=== PATIENT | female | born 1970 | race African-American/Black ===

== ENCOUNTER → 2017-08-10 12:55 | Outpatient (CLI) | payer MEDICAID, SELFPAY ==
--- NOTE | 2017-08-10 13:01 | EKG12_ITS ---
Test Reason : CHEST DISCOMFORT Blood Pressure : / mmHG Vent. Rate : 051 BPM Atrial Rate : 051 BPM P-R Int : 188 ms QRS Dur : 072 ms QT Int : 448 ms P-R-T Axes : 048 002 018 degrees QTc Int : 412 ms Sinus bradycardia Minimal voltage criteria for LVH, may be normal variant Possible Inferior infarct , age undetermined Abnormal ECG Confirmed by OLIVERIO CHAVEZ, ROSSY ([id number]), make up editor LUCI COLÓN ([id number]) on 08/11/2017 12:54:18 PM Referred By: Noemy Brooks Confirmed By:ROSSY DURON MD
--- NOTE | 2017-08-10 13:04 | RAD_ITS ---
STUDY: X-RAY CHEST REASON FOR EXAM: Female, 47 years old. Wheezing, chest discomfort TECHNIQUE: PA and lateral views of the chest. COMPARISON: 03/26/2015 FINDINGS: The lungs are clear and expanded. There is no demonstrated pleural abnormality. Normal size heart. Normal mediastinum and grey. Normal visualized pulmonary arteries. Normal visualized aortic arch and descending thoracic aorta. Normal visualized thoracic spine. Normal visualized ribs, clavicles, and shoulders. There is no demonstrated abnormality of the visualized soft tissue structures of the upper abdomen. RAD/Chest PA and Lateral IMPRESSION: Normal x-ray examination of the chest. Electronically Signed: Romeo Munoz MD at 13:26 EDT , Service support ,
== END ==
DX: R07.89 Other chest pain (principal); I10 Essential (primary) hypertension; F17.200 Nicotine dependence, unspecified, uncomplicated
CPT/HCPCS: 71046; 93005

== ENCOUNTER → 2017-08-12 10:46 | Outpatient (CLI) | payer MEDICAID, SELFPAY ==
--- NOTE | 2017-08-12 10:53 | US_ITS ---
STUDY: THYROID ULTRASOUND REASON FOR EXAM: Female, 47 years old. Thyroid enlargement TECHNIQUE: Ultrasound evaluation of the thyroid was performed with real-time and static crespo-scale imaging. COMPARISON: None. FINDINGS: RIGHT LOBE: The right lobe of the thyroid gland measures 4.7 x 2 x 1.9 cm. There is a homogeneous echotexture. There are no demonstrated solid, cystic or complex lesions. LEFT LOBE: The left lobe of the thyroid gland measures 4.6 x 3.3 x 1.6 cm. There is a homogeneous echotexture. There are no demonstrated solid, cystic or complex lesions. ISTHMUS: The isthmus measures 5 mm. . The regional lymph nodes are normal. US/Thyroid IMPRESSION: Normal ultrasound examination of the thyroid. Electronically Signed: Pardeep Dickens MD at 5:45 EDT , Service support ,
== END ==
DX: E04.9 Nontoxic goiter, unspecified (principal)
CPT/HCPCS: 76536

== ENCOUNTER 2017-09-23 18:05 | Emergency (ER) | payer MEDICAID, SELFPAY ==
[2017-09-23 18:06] VITALS: BP 139/95; PULSE 69; RESP 16; TEMP 37.2; O2SAT 98; BMI 39.6
--- NOTE | 2017-09-23 18:12 | EKG12_ITS ---
Test Reason : CHEST PAIN Blood Pressure : / mmHG Vent. Rate : 075 BPM Atrial Rate : 075 BPM P-R Int : 182 ms QRS Dur : 078 ms QT Int : 406 ms P-R-T Axes : 046 -01 057 degrees QTc Int : 453 ms Normal sinus rhythm Normal ECG Confirmed by ROSSY DURON MD ([id number]), assignment desk editor LUCI COLÓN ([id number]) on 09/25/2017 2:12:40 PM Referred By: ANGELIA Confirmed By:ROSSY DURON MD
--- NOTE | 2017-09-23 18:12 | RAD_ITS ---
STUDY: X-RAY CHEST REASON FOR EXAM: Female, 47 years old. Chest pain TECHNIQUE: Frontal view of the chest COMPARISON: 08/10/2017 FINDINGS: The lungs are clear. There are no pleural effusions. There is no pneumothorax. The heart is normal in size. The visualized osseous structures are within normal limits. RAD/Chest 1 View (Portable) IMPRESSION: No acute thoracic pathology. Electronically Signed: Minesh Bryant, at 18:39 EDT Tel , Service support ,
[2017-09-23 18:19] VITALS: O2SAT 96
[2017-09-23] MEDS: Aspirin 81 MG TAB.CHEW 324 MG PO (18:26)
[2017-09-23 18:54] LABS: Absolute Lymphocyte Count 5.11 X10^3/ul (0.83-4.51); Absolute Neutrophil Count 3.7 X10^3/uL (2.0-7.7); Basophil# 0.06 X10^3/uL; Basophil% 0.6 % (0-1); Eosinophil# 0.27 X10^3/uL; Eosinophils% 2.7 % (0-5); Hematocrit 40.6 % (37-47); Hemoglobin 13.4 g/dl (12.0-15.0); Lymphocyte # 5.11 X10^3/ul (4.0); Mean Corpuscular Hgb 28.1 pg (27.0-32.0); Mean Corpuscular Volume 85.1 fL (81-99); Mean Platelet Vol. 10.9 fl (6.2-12.0); Monocyte% 7.1 % (0-10); Neutrophil # 3.68 X10^3/uL (2.7-7.7); Neutrophil % 37.5 % (47-70); Platelet Count 289 K/mm3 (150-450); RBC Distribution Width CV 12.5 % (11.6-14.6); RBC Distribution Width SD 38.3 fl (35.1-43.9); Red Blood Count 4.77 M/mm3 (4.2-5.4); White Blood Count 9.8 K/mm3 (4.4-11.0)
[2017-09-23 18:55] LABS: Differential Indicated SCAN CRITERIA MET; POSITIVE COUNT NO; POSITIVE DIFFERENTIAL YES; POSITIVE MORPHOLOGY NO
[2017-09-23 18:57] LABS: Anion Gap 8 (5-15); BUN 14 mg/dL (7-18); BUN/Creat Ratio 9.2 RATIO (10-20); Calcium,Total 9.3 mg/dL (8.5-10.1); Chloride 104 mmol/L (98-107); Creatinine, Serum 1.52 mg/dL (0.55-1.02); EST Glomerular Filtration Rate 39 mL/min (>60); Est Glom Filt Rate - Afr Amer 47 mL/min (>60); Estimated Creatinine Clearance 40.36 ml/min; Glucose 108 mg/dL (74-106); Potassium 3.8 mmol/L (3.5-5.1); Sodium Level 139 mmol/L (136-145)
[2017-09-23 19:06] LABS: Differential Comment SCANNED
--- NOTE | 2017-09-23 19:31 | ED.VISSUMM ---
- ER Visit Summary Date of Service: 09/23/17 Chief Complaint: Chest pain History of Present Illness: The patient is a 47 F past medical history of hypertension and hypothyroidism. Patient's had no cardiac history and denies any family history of cardiac disease. 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 Has not upcoming echocardiogram. She has been having intermittent nonexertional chest pain for weeks. Denies any history of DVT or PE. She has never had a cardiac catheterization had a negative stress test she believes around 10 years ago. He does smoke tobacco about half a pack a day. Denies any family history of cardiac disease. No recent travel, surgery or mobilization. No calf pain or swelling. No hemoptysis. She states she walks without any difficulty. Physical Examination: Appearing middle-aged female. Vital signs are stable afebrile. Pulse ox 90% room air no signs of hypoxia. HEENT exam unremarkable. Neck nontender no JVD. No lymphadenopathy. Lungs clear to auscultation bilaterally. Chest wall no reproducible chest wall pain. Heart regular rate and rhythm no murmur rate about 70. Abdomen soft nontender. Normal bowel sounds no peritoneal signs. She is moving all 4 extremities. Calves are nontender without edema or cords. She has equal symmetrical radial pulses. Neurologically she is awake alert with no focal deficits. Back exam nontender. Test Results: CBC normal. BMP normal. Troponin normal. EKG sinus rhythm rate is 75 with no acute abnormalities. Chest x-ray no acute abnormalities. Normal cardiac silhouette read both by myself the radiologist. Emergency Department Course and Treatment: She is doing well on repeat exam. Given she has no family history and clinically and historically this really does not sound like cardiac chest pain and cover with her being discharged home and follow-up with Dr. Dickerson for her outpatient workup. Treatment Plan: Discharge follow-up with Dr. Dickerson. Disposition: discharge Impression: Acute atypical chest pain of uncertain etiology This note was generated with [employer] dictation software. It may contain incorrect words, spelling, and punctuation that were not noted in review of the chart prior to signing ED Disposition - Plan for ED Patient: Chief Complaint: Chest Pain Referrals: [facility],Bette Rincon [Primary Care Provider] -
--- NOTE | 2017-09-23 19:35 | ED.DCSUM_ITS ---
- ER Visit Summary Date of Service: 09/23/17 Chief Complaint: Chest pain History of Present Illness: The patient is a 47 F past medical history of hypertension and hypothyroidism. Patient's had no cardiac history and denies any family history of cardiac disease. 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 Has not upcoming echocardiogram. She has been having intermittent nonexertional chest pain for weeks. Denies any history of DVT or PE. She has never had a cardiac catheterization had a negative stress test she believes around 10 years ago. He does smoke tobacco about half a pack a day. Denies any family history of cardiac disease. No recent travel, surgery or mobilization. No calf pain or swelling. No hemoptysis. She states she walks without any difficulty. Physical Examination: Appearing middle-aged female. Vital signs are stable afebrile. Pulse ox 90% room air no signs of hypoxia. HEENT exam unremarkable. Neck nontender no JVD. No lymphadenopathy. Lungs clear to auscultation bilaterally. Chest wall no reproducible chest wall pain. Heart regular rate and rhythm no murmur rate about 70. Abdomen soft nontender. Normal bowel sounds no peritoneal signs. She is moving all 4 extremities. Calves are nontender without edema or cords. She has equal symmetrical radial pulses. Neurologically she is awake alert with no focal deficits. Back exam nontender. Test Results: CBC normal. BMP normal. Troponin normal. EKG sinus rhythm rate is 75 with no acute abnormalities. Chest x-ray no acute abnormalities. Normal cardiac silhouette read both by myself the radiologist. Emergency Department Course and Treatment: She is doing well on repeat exam. Given she has no family history and clinically and historically this really does not sound like cardiac chest pain and cover with her being discharged home and follow-up with Dr. Dickerson for her outpatient workup. Treatment Plan: Discharge follow-up with Dr. Dickerson. Disposition: discharge Impression: Acute atypical chest pain of uncertain etiology This note was generated with [employer] dictation software. It may contain incorrect words, spelling, and punctuation that were not noted in review of the chart prior to signing ED Disposition - Plan for ED Patient: Chief Complaint: Chest Pain Referrals: [facility],Bette Rincon [Primary Care Provider] -
--- NOTE | 2017-09-23 19:35 | ED.DEP ---
ED Disposition - Plan for ED Patient: Disposition: Home or Assisted Living Chief Complaint: Chest Pain Instructions: ED Chest Pain Atypical Unkn Cause Referrals: Fransisco Dickerson MD [STAFF PHYSICIAN] - As soon as possible Additional Instructions: On follow-up with Dr. Dickerson and he may want to get outpatient stress testing for your chest pain. All your tests were negative today. Return to the ER if you are feeling worse.
[2017-09-23 19:42] VITALS: BP 111/76; PULSE 66; RESP 30; O2SAT 98
== END 2017-09-23 19:44 | disposition home or self-care (01) ==
PROVIDERS: Emergency Provider Emergency Medicine
DX: R07.89 Other chest pain (principal); I10 Essential (primary) hypertension; Z72.0 Tobacco use; E03.9 Hypothyroidism, unspecified
CPT/HCPCS: 71045; 80048; 84484; 85025; 93005; 99285

== ENCOUNTER → 2017-09-30 20:11 | Outpatient (CLI) | payer MEDICAID, SELFPAY ==
[2017-09-30] MEDS: Zolpidem Tartrate 5 MG Tablet PO (22:00)
== END ==
PROVIDERS: Visit Provider Internal Medicine Cardiovascular Disease
DX: G47.10 Hypersomnia, unspecified (principal); R53.83 Other fatigue; G47.9 Sleep disorder, unspecified
CPT/HCPCS: 95810

== ENCOUNTER → 2017-10-02 14:03 | Outpatient (CLI) | payer MEDICAID, SELFPAY ==
--- NOTE | 2017-10-02 14:05 | ECHOD_ITS ---
Reason For Study: Chest Pain Procedure This was a 2D Doppler, Color Flow transthoracic echocardiogram. Exam performed in department. Left Ventricle Normal size and thickness. The estimated ejection fraction is 65 %. Normal diastology for age. No regional wall motion abnormalities noted. Right Ventricle Normal size and thickness. Normal systolic function. Atria Normal left atrium. Normal right atrium. Normal atrial septum. Mitral Valve The mitral valve is structurally normal. No prolapse or stenosis seen. Trivial mitral valve insufficiency. Tricuspid Valve Normal tricuspid valve. Trivial tricuspid valve insufficiency. Unable to estimate RV systolic pressure/pulmonary artery pressure due to technically difficult study. Aortic Valve Normal aortic valve. Trisinus/trileaflet aortic valve. Pulmonic Valve Normal pulmonic valve. Great Vessels Normal aortic root. Normal arch. Normal inferior vena cava. Inferior vena cava collapse with sniff. Pericardium/Pleural No pericardial effusion. Medication 22 gauge I.V. with prn adaptor inserted into right arm. Diluted definity 2ml given slow IV push to enhance endocardial definition. MMode/2D Measurements & Calculations LVIDd: 4.5 cm IVSd: 1.0 cm LA dimension: 3.9 cm LVIDs: 2.7 cm LVPWd: 0.94 cm RVDd: 3.5 cm FS: 39.5 % LAV(MOD-bp): 47.2 ml LA A4 area: 18.0 cm2 RA A4 area: 14.5 cm2 LAV(MOD-bp) Indexed: 22.4 ml/m2 LAV(MOD-sp2): 44.5 ml LAV(MOD-sp4): 47.6 ml Time Measurements MV dec time: 0.28 sec Doppler Measurements & Calculations MV E max gonzalo: 81.8 cm/sec Lat Peak E' Gonzalo: 10.5 cm/sec Med Peak E' Gonzalo: 8.7 cm/sec MV A max gonzalo: 97.0 cm/sec E/E' lat: 7.8 E/E' med: 9.4 MV E/A: 0.84 MV V2 max: 109.8 cm/sec MV P1/2t max gonzalo: 96.3 cm/sec Ao V2 max: 177.6 cm/sec MV max P.8 mmHg MV P1/2t: 109.9 msec Ao max P.6 mmHg MV V2 mean: 62.9 cm/sec MV dec slope: 256.6 cm/sec2 Ao V2 mean: 114.9 cm/sec MV mean P.8 mmHg MVA(P1/2t): 2.0 cm2 Ao mean P.0 mmHg MV V2 VTI: 32.3 cm Ao V2 VTI: 35.1 cm LV V1 max: 129.6 cm/sec LV V1 max P.7 mmHg LV V1 mean P.8 mmHg LV V1 mean: 75.4 cm/sec LV V1 VTI: 26.2 cm Interpretation Summary The estimated ejection fraction is 65 %. Normal diastology for age. Trivial mitral valve insufficiency. Trivial tricuspid valve insufficiency. Unable to estimate RV systolic pressure/pulmonary artery pressure due to technically difficult study. The study was technically difficult. There is no comparison study available. Contrast injection was performed. Ordering Physician: Fransisco Dickerson Referring Physician: Fransisco Dickerson Performed By: Gabriel Rios RCS
== END ==
PROVIDERS: Visit Provider Internal Medicine Cardiovascular Disease
DX: I10 Essential (primary) hypertension (principal); R94.31 Abnormal electrocardiogram [ECG] [EKG]; R07.9 Chest pain, unspecified
CPT/HCPCS: 93306; Q9957; A4216; C8929

== ENCOUNTER 2017-10-14 07:39 | Emergency (ER) | payer MEDICAID, SELFPAY ==
[2017-10-14 07:40] VITALS: BP 126/80; PULSE 62; RESP 14; TEMP 36.8; O2SAT 98; BMI 42.7
--- NOTE | 2017-10-14 07:50 | ED.VISSUMM ---
- ER Visit Summary Date of Service: 10/14/17 Chief Complaint: Sore throat History of Present Illness: The patient is a 47 F presenting with sore throat since yesterday. Patient states she has a history of tonsillitis 1-2 times per year and this feels similar. She has painful swallowing but no difficulty swallowing. She tried ibuprofen at home. She has no sick contacts. She denies fever. She also complains of nasal congestion. Denies other complaints. Physical Examination: Vitals are stable. Patient is afebrile. Alert no acute distress. HEENT exam pharyngeal erythema with no exudate. Uvula is midline Neck is supple. Lungs are clear and equal bilaterally. Heart is regular rate and rhythm. Abdomen is soft nontender nondistended. Extremities are unremarkable. Skin is warm and dry. No focal neurologic deficit. Remainder of exam is unremarkable. Emergency Department Course and Treatment: She was given Decadron p.o. Rapid strep is negative. She is able to tolerate p.o. She is advised to follow-up with her primary care physician. Advised return to ED for worsening complaints. Disposition: Discharge home Impression: Pharyngitis This note was generated with [employer] dictation software. It may contain incorrect words, spelling, and punctuation that were not noted in review of the chart prior to signing ED Disposition - Plan for ED Patient: Disposition: Home or Assisted Living Chief Complaint: Sore Throat Instructions: ED Pharyngitis Viral Prescriptions: Guaifenesin/Pseudoephedrne HCl [Mucinex D ER 1,200-120 mg Tab] 1 ea PO BID #14 [email or web address] Referrals: Bette Duncan [Primary Care Provider] -
--- NOTE | 2017-10-14 08:52 | DCINST.ED_ITS ---
ED Disposition - Plan for ED Patient: Chief Complaint: Sore Throat Instructions: ED Pharyngitis Viral Prescriptions: Guaifenesin/Pseudoephedrne HCl [Mucinex D ER 1,200-120 mg Tab] 1 each PO BID # 14 [email or web address] Referrals: [facility],Bette Rincon [Primary Care Provider] -
[2017-10-14 09:00] VITALS: RESP 18
== END 2017-10-14 09:03 | disposition home or self-care (01) ==
PROVIDERS: Emergency Provider Emergency Medicine
DX: J02.9 Acute pharyngitis, unspecified (principal); I41 Myocarditis in diseases classified elsewhere; I10 Essential (primary) hypertension; Z72.0 Tobacco use
CPT/HCPCS: 87880

== ENCOUNTER → 2017-10-14 09:51 | Outpatient (CLI) | payer MEDICAID, SELFPAY | PROVIDERS: Visit Provider Internal Medicine Cardiovascular Disease | DX: R07.9 Chest pain, unspecified (principal); I10 Essential (primary) hypertension; R94.31 Abnormal electrocardiogram [ECG] [EKG] | CPT/HCPCS: 87880; 93017; 93350; 99283; Q9957; A4216; C8928 ==

== ENCOUNTER 2017-10-16 15:39 | Emergency (ER) | payer MEDICAID, SELFPAY ==
[2017-10-16 15:40] VITALS: BP 145/91; PULSE 55; RESP 15; TEMP 37; O2SAT 97; BMI 41.1
[2017-10-16] MEDS: LORazepam 2 MG/ML Syringe 1 MG IV (16:02)
--- NOTE | 2017-10-16 16:07 | ED.VISSUMM ---
- ER Visit Summary Date of Service: 10/16/17 Chief Complaint: Acute right ear pain with muffled hearing and vertigo after blowing her nose 1 hour ago History of Present Illness: The patient is a 47 F who presents because of acute vertigo after blowing her nose. She states she experienced crackle pop and pain in the right ear followed by spinning sensation with nausea. She states she cannot walk straight. She denies headache. She denies double vision, blurred vision loss of vision. She has trouble with speech or swallowing. Movement of her head does exacerbate her symptoms and is specifically to the left. She denies any chest pain palpitations, orthopnea or PND. She denies shortness of breath, cough or dyspnea on exertion. She is a smoker. She does have history of labyrinthitis and vertigo. She does report URI symptoms started several days ago. She has had no documented fever. She denies chills or night sweats. She denies sore throat or, neck pain, photophobia or stiff sore neck. She denies any skin lesions. She denies history of trauma. Past medical history hypertension, labyrinthitis, vertigo, hypothyroidism, obstructive sleep apnea and BMI greater than 40. She is status post hysterectomy. Physical Examination: Blood pressure is elevated 145/91. Head is atraumatic normocephalic. Pupils are equal round reactive. Extraocular muscles are intact. TMs are pearly white with landmarks noted. There is dullness with fluid noted behind the right TM. Nares patent with no drainage. Posterior pharynx without erythema or exudate. Uvula is midline. There is no dysphonia or dysphasia. Trachea is midline. There is no stridor with auscultation of the neck. Heart is regular without murmur, gallop or rub. S1 and S2 are normal. Lungs are clear to auscultation with good movement of air bilaterally. Abdomen is soft nontender. Patient is alert and oriented ?3. Motor is 5 over 5. Sensory is intact. DTRs are symmetric with no clonus or Babinski sign. Cranial 2 through 12 are intact. Cerebellar testing is normal. Gait was observed and she shuffles her feet. Romberg test with eyes open and closed is negative. She is able to walk on her heels and toes without staggering. Bath-Hallpike maneuver was performed and she complained of mild nausea no other symptoms. There was no nystagmus. Eye askew test was negative. Hint test was negative. Test Results: Patient reports slight improvement after treatment. No lab tests were obtained. Emergency Department Course and Treatment: Since there is a national shortage of IV Valium she was treated with IV Ativan and will be reassessed. Treatment Plan: Discharged home with prescription for 2 mg Valium tablets to be taken 3 times a day and Flonase spray Disposition: Discharged to home Impression: 1. Serous otitis right ear 2. Positional vertigo This note was generated with [employer] dictation software. It may contain incorrect words, spelling, and punctuation that were not noted in review of the chart prior to signing ED Disposition - Plan for ED Patient: Disposition: Home or Assisted Living Chief Complaint: Ear Problem Instructions: ED Otitis Media Serous Adult, ED Vertigo Unspecified Prescriptions: Fluticasone 0.05% [Flonase Nasal [place]] 1 spray NASAL BID #1 bottle Diazepam [Valium] 4 mg PO TID #10 tablet Referrals: [facility],Bette Rincon [Primary Care Provider] - 1 Week if not improving
--- NOTE | 2017-10-16 16:10 | ED.DCSUM_ITS ---
- ER Visit Summary Date of Service: 10/16/17 Chief Complaint: Acute right ear pain with muffled hearing and vertigo after blowing her nose 1 hour ago History of Present Illness: The patient is a 47 F who presents because of acute vertigo after blowing her nose. She states she experienced crackle pop and pain in the right ear followed by spinning sensation with nausea. She states she cannot walk straight. She denies headache. She denies double vision, blurred vision loss of vision. She has trouble with speech or swallowing. Movement of her head does exacerbate her symptoms and is specifically to the left. She denies any chest pain palpitations, orthopnea or PND. She denies shortness of breath, cough or dyspnea on exertion. She is a smoker. She does have history of labyrinthitis and vertigo. She does report URI symptoms started several days ago. She has had no documented fever. She denies chills or night sweats. She denies sore throat or , neck pain, photophobia or stiff sore neck. She denies any skin lesions. She denies history of trauma. Past medical history hypertension, labyrinthitis, vertigo, hypothyroidism, obstructive sleep apnea and BMI greater than 40. She is status post hysterectomy. Physical Examination: Blood pressure is elevated 145/91. Head is atraumatic normocephalic. Pupils are equal round reactive. Extraocular muscles are intact. TMs are pearly white with landmarks noted. There is dullness with fluid noted behind the right TM. Nares patent with no drainage. Posterior pharynx without erythema or exudate. Uvula is midline. There is no dysphonia or dysphasia. Trachea is midline. There is no stridor with auscultation of the neck. Heart is regular without murmur, gallop or rub. S1 and S2 are normal. Lungs are clear to auscultation with good movement of air bilaterally. Abdomen is soft nontender. Patient is alert and oriented ?3. Motor is 5 over 5. Sensory is intact. DTRs are symmetric with no clonus or Babinski sign. Cranial 2 through 12 are intact. Cerebellar testing is normal. Gait was observed and she shuffles her feet. Romberg test with eyes open and closed is negative. She is able to walk on her heels and toes without staggering. Langeloth-Hallpike maneuver was performed and she complained of mild nausea no other symptoms. There was no nystagmus. Eye askew test was negative. Hint test was negative. Test Results: Patient reports slight improvement after treatment. No lab tests were obtained. Emergency Department Course and Treatment: Since there is a national shortage of IV Valium she was treated with IV Ativan and will be reassessed. Treatment Plan: Discharged home with prescription for 2 mg Valium tablets to be taken 3 times a day and Flonase spray Disposition: Discharged to home Impression: 1. Serous otitis right ear 2. Positional vertigo This note was generated with [employer] dictation software. It may contain incorrect words, spelling, and punctuation that were not noted in review of the chart prior to signing ED Disposition - Plan for ED Patient: Disposition: Home or Assisted Living Chief Complaint: Ear Problem Instructions: ED Otitis Media Serous Adult, ED Vertigo Unspecified Prescriptions: Fluticasone 0.05% [Flonase Nasal [place]] 1 spray NASAL BID #1 bottle Diazepam [Valium] 4 mg PO TID #10 tablet Referrals: [facility],Bette Rincon [Primary Care Provider] - 1 Week if not improving
== END 2017-10-16 16:45 | disposition home or self-care (01) ==
PROVIDERS: Emergency Provider Emergency Medicine
DX: H65.91 Unspecified nonsuppurative otitis media, right ear (principal); H81.11 Benign paroxysmal vertigo, right ear; F17.200 Nicotine dependence, unspecified, uncomplicated; I10 Essential (primary) hypertension; E03.9 Hypothyroidism, unspecified; G47.33 Obstructive sleep apnea (adult) (pediatric); Z79.82 Long term (current) use of aspirin; Z79.899 Other long term (current) drug therapy
CPT/HCPCS: 96374; J7030

== ENCOUNTER → 2017-11-03 16:10 | Outpatient (CLI) | payer MEDICAID, SELFPAY ==
--- NOTE | 2017-11-03 16:45 | MRI_ITS ---
STUDY: MRI BRAIN WITH AND WITHOUT CONTRAST (ATTENTION INTERNAL AUDITORY CANALS - I.A.C.'s) REASON FOR EXAM: Female, 47 years old. Vertigo and perilymphatic fistula TECHNIQUE: Standardized multiplanar fat and water weighted pulse sequences were obtained. 10 ml of Gadavist contrast material was administered intravenously for the contrast portion of the examination. COMPARISON: None. FINDINGS: Normal bilateral temporal bones. Normal bilateral internal auditory canals. There is no demonstrated intracanalicular or cisternal vestibular schwannoma (acoustic neuroma). There is no enhancement of the bilateral VIIth or VIIIth cranial nerves. Normal bilateral cochlea, vestibules and semicircular canals. Normal size of the ventricles and extra-axial spaces for the patient's age. Normal white matter tracts of the supratentorial brain. Normal bilateral basal ganglia. Normal thalami. Normal flow voids within the major intracranial circulation suggesting patency by spin echo criteria. Normal venous enhancement. There is no enhancing intra-axial or extra-axial abnormality. There is no extra-axial fluid accumulation. Partial empty sella deformity of uncertain significance. Normal, infundibular stalk, optic chiasm and hypothalamus. Normal tectal plate and pineal gland. Normal midbrain, allison and medulla. There is beaking of the cerebellar tonsils projecting into the foramen magnum consistent with Chiari I malformation. Normal basal cisterns. No demonstrated orbital abnormality, within the constraints of a routine brain study. Bilateral maxillary and ethmoid sinus disease greater on the right. Normal calvarium and skull base. Normal visualized soft tissue structures. Normal visualized upper cervical spine. MRI/Brain W/WO Contrast IMPRESSION: Normal unenhanced and enhanced MRI of the bilateral internal auditory canals (I.A.C's). No evidence for acoustic or vestibular schwannoma Incidental finding of Chiari I malformation Bilateral maxillary and ethmoid sinus disease greater on the right Electronically Signed: Fernando Elias MD at 18:10 EDT , Service support ,
== END ==
PROVIDERS: Visit Provider Otolaryngology
DX: R42 Dizziness and giddiness (principal); H93.11 Tinnitus, right ear; H91.91 Unspecified hearing loss, right ear
CPT/HCPCS: 70553; A9585

== ENCOUNTER 2018-02-21 17:59 | Emergency (ER) | payer MEDICAID, SELFPAY ==
[2018-02-21 18:00] VITALS: BP 155/94; PULSE 71; RESP 20; TEMP 36.7; O2SAT 99; BMI 39.4
--- NOTE | 2018-02-21 18:12 | EKG12_ITS ---
Test Reason : DYSRHYTHMIA Blood Pressure : / mmHG Vent. Rate : 071 BPM Atrial Rate : 071 BPM P-R Int : 178 ms QRS Dur : 090 ms QT Int : 400 ms P-R-T Axes : 043 006 055 degrees QTc Int : 434 ms Normal sinus rhythm Voltage criteria for left ventricular hypertrophy Abnormal ECG Confirmed by OLIVERIO CHAVEZ, ROSSY ([id number]), editor magazine LUCI COLÓN ([id number]) on 02/22/2018 2:16:59 PM Referred By: KRAIG Confirmed By:ROSSY DURON MD
--- NOTE | 2018-02-21 18:12 | RAD_ITS ---
STUDY: X-RAY CHEST REASON FOR EXAM: Female, 48 years old. Possible allergic reaction TECHNIQUE: Single AP portable view of the chest. COMPARISON: 09/23/2017 FINDINGS: The lungs are clear and expanded. There is no demonstrated pleural abnormality. Normal size heart. Normal mediastinum and grey. Normal visualized pulmonary arteries. Normal visualized aortic arch and descending thoracic aorta. Normal visualized thoracic spine. Normal visualized ribs, clavicles, and shoulders. There is no demonstrated abnormality of the visualized soft tissue structures of the upper abdomen. RAD/Chest 1 View (Portable) IMPRESSION: Normal x-ray examination of the chest. Electronically Signed: Josh Morin DO at 18:28 EDT Tel , Service support ,
--- NOTE | 2018-02-21 18:15 | ED.VISSUMM ---
- ER Visit Summary Date of Service: 02/21/18 Chief Complaint: Chest pain History of Present Illness: The patient is a 48 F presenting with chest pain and pressure. She states that the symptoms started yesterday. She had 3 hours of chest pressure with radiation to her neck. She states it then resolved. She does not recall anything that makes it better or worse. The symptoms started again 1 hour ago. She denies shortness of breath. She has mild cough. She is been treated for hives for the past 2 weeks she has been on prednisone. Her Lyrica was stopped. She complains of itching all over and intermittent hives. Denies difficulty breathing or swallowing. Denies other complaints. She has a history of hypertension, hypothyroidism. She is a smoker and uses cocaine. She had a stress test in September 2017 which she states was normal. Physical Examination: Vitals are stable. Patient is afebrile. Alert no acute distress. HEENT exam is unremarkable. No tongue swelling. No pharyngeal edema. Neck is supple. Lungs are clear and equal bilaterally. No wheezing Heart is regular rate and rhythm. Abdomen is soft nontender nondistended. Extremities are unremarkable. Skin is warm and dry. Mild urticaria upper extremities No focal neurologic deficit. Remainder of exam is unremarkable. Emergency Department Course and Treatment: Patient was given aspirin, Benadryl, Solu-Medrol. EKG is sinus rate of 71 with no acute changes. Chest x-ray shows no acute process. CBC shows white count 11.3. Chemistries show potassium 3.4, glucose 131, creatinine 1.23. Troponin is negative. D-dimer was elevated at 1.33. CTA chest was obtained and is normal CTA chest examination, without a demonstrated pulmonary embolism or arterial dissection. Delta troponin was obtained and is negative. Patient is requesting discharge. Her symptoms have not worsened. She has no difficulty breathing or swallowing. She will follow-up with her primary care physician. She is advised to return to ED for worsening complaints. Disposition: Discharge home Impression: Atypical chest pain, urticaria This note was generated with [employer] dictation software. It may contain incorrect words, spelling, and punctuation that were not noted in review of the chart prior to signing ED Disposition - Plan for ED Patient: Chief Complaint: Chest Pain Referrals: Kerline Millard,Bette Rincon [NON-STAFF] -
[2018-02-21 18:17] VITALS: O2SAT 98
[2018-02-21] MEDS: DiphenhydrAMINE 50 MG/ML Syringe 25 MG IV (18:22)
[2018-02-21] MEDS: Aspirin 81 MG TAB.CHEW 324 MG PO (18:22)
[2018-02-21] MEDS: MethylPREDNISolone 125 MG/2 ML Vial IV (18:22)
[2018-02-21 18:26] LABS: Absolute Lymphocyte Count 5.07 X10^3/ul (0.83-4.51); Absolute Neutrophil Count 5.2 X10^3/uL (2.0-7.7); Basophil# 0.04 X10^3/uL; Basophil% 0.4 % (0-1); Differential Indicated SCAN CRITERIA MET; Eosinophil# 0.05 X10^3/uL; Eosinophils% 0.4 % (0-5); Hemoglobin 13.7 g/dl (12.0-15.0); Lymphocyte # 5.07 X10^3/ul (4.0); Lymphocyte % 44.9 % (19-41); Mean Corp Hgb Conc 32.6 g/gl (32-36); Mean Corpuscular Hgb 27.7 pg (27.0-32.0); Mean Platelet Vol. 10.8 fl (6.2-12.0); Monocyte# 0.93 X10^3/uL; Monocyte% 8.2 % (0-10); Neutrophil # 5.19 X10^3/uL (2.7-7.7); POSITIVE COUNT NO; POSITIVE DIFFERENTIAL YES; POSITIVE MORPHOLOGY NO; Platelet Count 283 K/mm3 (150-450); RBC Distribution Width CV 13.2 % (11.6-14.6); RBC Distribution Width SD 40.6 fl (35.1-43.9); Red Blood Count 4.94 M/mm3 (4.2-5.4); White Blood Count 11.3 K/mm3 (4.4-11.0)
[2018-02-21 19:01] LABS: D-Dimer Quantitative (DVT/PE) 1.33 FEU/ug/m (0.27-0.49)
[2018-02-21 19:07] LABS: Anion Gap 6 (5-15); BUN 12 mg/dL (7-18); BUN/Creat Ratio 9.8 RATIO (10-20); Calcium,Total 8.7 mg/dL (8.5-10.1); Chloride 105 mmol/L (98-107); Creatinine, Serum 1.23 mg/dL (0.55-1.02); EST Glomerular Filtration Rate 50 mL/min (>60); Est Glom Filt Rate - Afr Amer 60 mL/min (>60); Estimated Creatinine Clearance 49.35 ml/min; Glucose 131 mg/dL (74-106); Potassium 3.4 mmol/L (3.5-5.1); Sodium Level 140 mmol/L (136-145)
--- NOTE | 2018-02-21 19:10 | CT_ITS ---
STUDY: CTA CHEST REASON FOR EXAM: Female, 48 years old. Hives over the entire body RADIATION DOSAGE (If Supplied By Facility): CTDIvol = ( 30.02 ) mGy, DLP = ( 639.17 ) mGycm TECHNIQUE: The examination was performed with the intravenous administration of 100ML ml of Isovue 370 contrast material. Post-processing of the angiographic images was performed, with multiplanar reformation and 3D reconstruction. Individualized dose optimization techniques were used for this CT. COMPARISON: Chest x-ray earlier FINDINGS: Normal enhancement of the main pulmonary artery and right and left pulmonary arteries. Normal enhancement of the bilateral peripheral pulmonary arteries. There is no demonstrated pulmonary embolism. Normal thoracic aorta and visualized great vessels. There is no demonstrated aortic dissection. Normal heart and pericardium. Normal mediastinum. Normal hilar regions. Normal visualized trachea and bronchi. The lungs are well expanded. Normal pulmonary parenchyma. Normal pleura. Normal chest wall structures. There are degenerative changes of thoracic spine. Normal visualized upper abdomen. CT/CTA Chest W/WO Contrast IMPRESSION: Normal CTA chest examination, without a demonstrated pulmonary embolism or arterial dissection. Electronically Signed: Josh Morin DO at 20:22 EDT Tel , Service support ,
--- NOTE | 2018-02-21 19:12 | ED.RN ---
LAB CALLED WITH [facility], PATIENTS D DIMER IS 1.33, DR COX NOTIFIED
[2018-02-21] MEDS: 0.9% Normal Saline 1,000 ML 999 ML IV (19:43)
[2018-02-21] MEDS: Ketorolac 15 MG/ML Vial IV (20:24)
[2018-02-21 20:25] VITALS: PULSE 67; RESP 16; O2SAT 97
--- NOTE | 2018-02-21 21:30 | ED.RN ---
PT puts call light on and this and this RN answered call. PT requested pain medicine and something for nausea. PT did eat a sandwhich, cookie, salty snack and drink then got nauseous. I requested medications from Dr. Hay. While waiting for meds, PT got up to use restroom. PT then returned to her room and got fully dressed. Pts phone was in three pieces on ground. This RN picked up all pieces and handed phone back to pt. Phone has many, many scratches and defects on phone from prior mishaps. I entered room with medications and supplies to draw 2nd troponin. Educated pt on medications, she then refused both medications and only wants blood drawn. Blood drawn from IV site. PT refused cardiac monitoring. PT did ask if do all nurses just stand around the station talking about other pts. Discussed with PT that Zully did report off her pts with me in order to go to lunch. Door closed to lower sound levels. PT did open door a few minutes later. MD aware of medication refusal.
[2018-02-21 22:28] VITALS: RESP 16; O2SAT 98
--- NOTE | 2018-02-21 22:33 | ED.DEP ---
ED Disposition - Plan for ED Patient: Chief Complaint: Chest Pain Instructions: ED Chest Pain Atypical Unkn Cause Referrals: Bette Duncan [NON-STAFF] -
[2018-02-21 22:38] VITALS: RESP 17
== END 2018-02-21 22:40 | disposition home or self-care (01) ==
PROVIDERS: Emergency Provider Emergency Medicine; Family Provider Nurse Practitioner Family; PCP Nurse Practitioner Family
DX: R07.89 Other chest pain (principal); L50.9 Urticaria, unspecified; I10 Essential (primary) hypertension; E03.9 Hypothyroidism, unspecified; F17.200 Nicotine dependence, unspecified, uncomplicated; F14.90 Cocaine use, unspecified, uncomplicated; R05 Cough
CPT/HCPCS: 71045; 71275; 80048; 84484; 85025; 85379; 93005; 96361; 96374; 96375; 99285; J7030; Q9967; A4216; J2405

== ENCOUNTER → 2018-03-16 18:02 | Outpatient (CLI) | payer MEDICAID, SELFPAY ==
--- NOTE | 2018-03-16 18:05 | CT_ITS ---
STUDY: CT TEMPORAL BONES WITHOUT CONTRAST REASON FOR EXAM: Female, 48 years old. 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 RADIATION DOSAGE (If Supplied By Facility): CTDIvol = ( 67.58 ) mGy, DLP = ( 569.79 ) mGycm TECHNIQUE: The patient was scanned in a multi detector CT scanner. High resolution transaxial imaging was performed without the administration of intravenous contrast material. Sagittal and coronal images were reconstructed. Individualized dose optimization techniques were used for this CT. COMPARISON: None. FINDINGS: RIGHT TEMPORAL BONE Normal right external auditory canal. Normal malleus, incus and stapedius. Normal malleoincudal and incudostapedial articulations. Normal epitympanum, mesotympanum, and hypotympanum. Normal right posterior, superior and lateral semicircular canals. Normal right vestibule and cochlea. Normal tympanic segment of the facial nerve. Normal Korner's septum, tegmen tympani, arcuate eminence and aditus ad antrum. Normal right mastoid air cells. Normal right petrous apex. Normal right petrous carotid artery. Normal right jugular fossa. Normal right internal auditory canal. Normal right vestibular and cochlear aqueducts. LEFT TEMPORAL BONE Normal left external auditory canal. Normal malleus, incus and stapedius. Normal malleoincudal and incudostapedial articulations. Normal epitympanum, mesotympanum, and hypotympanum. Normal left posterior, superior and lateral semicircular canals. Normal left vestibule and cochlea. Normal tympanic segment of the facial nerve. Normal Korner's septum, tegmen tympani, arcuate eminence and aditus ad antrum. Normal left mastoid air cells. Normal left petrous apex. Normal left petrous carotid artery. Normal left jugular fossa. Normal left internal auditory canal. Normal left vestibular and cochlear aqueducts. CT/Orb Sella Post Fossa Ear w/o IMPRESSION: Normal CT examination of the bilateral temporal bones. Electronically Signed: Zo Duong MD at 12:56 EDT Tel , Service support ,
== END ==
PROVIDERS: Family Provider Nurse Practitioner Family; PCP Nurse Practitioner Family
DX: H81.91 Unspecified disorder of vestibular function, right ear (principal)
CPT/HCPCS: 70480

== ENCOUNTER → 2018-04-15 14:57 | Outpatient (CLI) | payer MEDICAID, SELFPAY ==
[2018-04-15 16:31] LABS: Free T3 2.2 pg/mL (2.18-3.98); T4 Free Direct 0.79 ng/dL (0.76-1.46); Thyroid Stim Hormone (TSH) 5.58 uIU/mL (0.358-3.74)
[2018-04-27 14:07] LABS: Testosterone, Total < 3 ng/dL (8-48)
--- OUTSIDE RECORDS SUMMARY | 2018-06-10 20:32 | XMS RPT_ITS ---
:1970 Author Organization OHIP Support Name Relationship Address Phone BERNABE WYNN Unavailable [address] + [place] [address] JORDANA ARAIZA Unavailable . + [place] [address] UE Unavailable Unavailable Unavailable declined, declined Unavailable Unavailable Unavailable BERNABE WYNN Unavailable [address] + [place] [address] JORDANA ARAIZA Unavailable . + [place] [address] UE Unavailable Unavailable Unavailable BERNABE WYNN Unavailable [address] + [place] [address] JORDANA ARAIZA Unavailable Unavailable + [place] [address] UE Unavailable Unavailable Unavailable BERNABE WYNN Unavailable [address] + [place] [address] SMOKE Unavailable [address] + [place] [address] JORDANA ARAIZA Unavailable Unavailable + BERNABE WYNN Unavailable [address] + [place] [address] [address] Unavailable [address] + [place] [address] JORDANA ARAIZA Unavailable Unavailable + [place] [address] BERNABE WYNN Unavailable [address] + [place] [address] [address]KE Unavailable [address] + [place] [address] JORDANA ARAIZA Unavailable Unavailable + [place] [address] BERNABE WYNN Unavailable [address] + [place] [address] Un[address] + [place] [address] JOSE G, JORDANA Unavailable Unavailable + [place] [address] BERNABE WYNN Unavailable [address] + [place] [address] [address] Unavailable [address] + [place] [address] JOSE G, JORDANA Unavailable Unavailable + [place] [address] BERNABE WYNN Unavailable [address] + [place] [address] SMOKE Unavailable [address] + [place] [address] JOSE G, JORDANA Unavailable Unavailable + [place] [address] BERNABE WYNN Unavailable [address] + [place] [address] Un[address] + [place] [address] BERNABE WYNN Unavailable [address] + [place] [address] Un[address] + [place] [address] BERNABE WYNN Unavailable [address] + [place] [address] Un[address] + [place] [address] BERNABE WYNN Unavailable [address] + [place] [address] Un[address] + [place] [address] JOSE G, JORDANA Unavailable Unavailable + [place] [address] BERNABE WYNN Unavailable [address] + [place] [address] Un[address] + [place] [address] BERNABE WYNN Unavailable [address] + [place] [address] Un[address] + [place] [address] BERNABE WYNN Unavailable [address] + [place] [address] [address] Un[address] + [place] [address] BERNABE WYNN Unavailable [address] + [place] [address] [address] Un[address] + [place] [address] BERNABE WYNN Unavailable [address] + [place] [address] [employer] Un[address] + [place] [address] BERNABE WNYN Unavailable [address] + [place] [address] Un[address] + [place] [address] Care Team Providers Name Role Phone [facility] Attending Unavailable Noemy Noel Referring Unavailable [facility] Primary Care Unavailable [facility] Attending Unavailable [facility] Primary Care Unavailable Noemy Noel Consulting Unavailable Noemy Noel Referring Unavailable Fransisco Dickerson Attending Unavailable [facility] Referring Unavailable [facility] Primary Care Unavailable Vishal Strauss Attending Unavailable Noemy Noel Referring Unavailable [facility] Primary Care Unavailable Fernando Baker Attending Unavailable Fransisco Dickerson Attending Unavailable [facility] Primary Care Unavailable Fransisco Dickerson Attending Unavailable Fransisco Dickerson Referring Unavailable [facility] Primary Care Unavailable Noemy Noel Consulting Unavailable Fransisco Dickerson Attending Unavailable Fransisco Dickerson Referring Unavailable [facility] Primary Care Unavailable [facility] Primary Care Unavailable Velia Hay Attending Unavailable Hallie Tracy Attending Unavailable [facility] Referring Unavailable [facility] Primary Care Unavailable Joey Dwyer Attending Unavailable Fransisco Dickerson Attending Unavailable Bernabe Marcano Attending Unavailable Jeet, Bernabe Referring Unavailable [facility] Primary Care Unavailable Fransisco Dickerson Attending Unavailable [facility] Referring Unavailable Fransisco Dickerson Attending Unavailable JENNIFER ZIMMERMAN Attending Unavailable [employer], Noemy Primary Care Unavailable JENNIFER ZIMMERMAN Referring Unavailable JeetBernabe white Referring Unavailable [facility] Primary Care Unavailable [employer], Noemy Consulting Unavailable JENNIFER ZIMMERMAN Attending Unavailable Velia Hay Attending Unavailable [employer], Noemy Primary Care Unavailable Ousmane Bell Attending Unavailable [employer], Noemy Primary Care Unavailable CARLA PUGH (PA) Attending Unavailable Jessica, Dr. Siobhan Waters Attending Unavailable Endy, Ms. Julia Solorio Attending Unavailable Jessica, Dr. Siobhan Waters Referring Unavailable UNKNOWN, PCP Primary Care Unavailable Jessica, Dr. Siobhan Waters Attending Unavailable UNKNOWN, PCP Referring Unavailable UNKNOWN, PCP Primary Care Unavailable Jessica, Dr. Siobhan Waters Attending Unavailable UNKNOWN, PCP Primary Care Unavailable Jessica, Dr. Siobhan Waters Attending Unavailable *SELF, REFERRED Referring Unavailable UNKNOWN, PCP Primary Care Unavailable PROBLEMS PROBLEMS DATE TYPE CONDITION / CODE ATTENDING STATUS SOURCE Final Dizziness and [place], [place]. [place] [address] diagnosis giddiness / [facility] (discharge) R42(ICD-10) Repository Final Tinnitus, right ear / End[place], [place]. [place] [address] diagnosis H93.11(ICD-10) [facility] (discharge) Repository Final Sensorineural hearing Endy, . [place] [address] diagnosis loss, bilateral / [facility] (discharge) H90.3(ICD-10) Repository Final Other specified Endy, . [place] [address] diagnosis hearing loss, right [facility] (discharge) ear / H91.8X1(ICD-10) Repository Unknown R42 - Dizziness and Bernabe Marcano Active [facility] giddiness / Community R42(ICD-10) Hospital Repository Unknown H93.11 - Tinnitus, Bernabe Marcano Active [facility] right ear / Community H93.11(ICD-10) Hospital Repository Unknown H91.91 - Unspecified Bernabe Marcano Active [place] [facility] hearing loss, right Community ear / H91.91(ICD-10) Hospital Repository Unknown R07.9 - Chest pain, Fransisco Dickerson Active [facility] unspecified / Community R07.9(ICD-10) Hospital Repository Unknown R94.31 - Abnormal Fransisco Dickerson Active [facility] electrocardiogram [facility] [ECG] [EKG] / Hospital R94.31(ICD-10) Repository Unknown G47.33 - Obstructive Demarcus, Active [facility] sleep apnea (adult) [facility] (pediatric) / Hospital G47.33(ICD-10) Repository Unknown R53.83 - Other fatigue Fransisco Dickerson Active [place] [facility] / R53.83(ICD-10) [facility] Hospital Repository Unknown G47.9 - Sleep Fransisco Dickerson Active [facility] disorder, unspecified Community / G47.9(ICD-10) Hospital Repository Unknown I10 - Essential Fransisco Dickerson Active [place] 8 (primary) hypertension Community / I10(ICD-10) Hospital Repository Unknown F17.200 - Nicotine CLINIC, [facility] Active [place] [facility] dependence, [facility] unspecified, Hospital uncomplicated / Repository F17.200(ICD-10) Unknown R07.89 - Other chest CLINIC, [facility] Active [facility] pain / R07.89(ICD-10) [facility] Hospital Repository PROCEDURES PROCEDURES No Procedure Records FoundRESULTS RESULTS FREE T3 Collected: 04/15/2018 Status: F Source: [place] 2:59 PM [facility] REPOSITORY Order Comment: Has Patient had X-rays with Contrast this admission? N TYPE CODE TESTS RESULT OUT OF RANGE REFERENCE UNITS LAB L501.91590 2.18-3.98 pg/mL Normal FREE T3 2.2 Performed By: #### L501.85515, L501.9520, L506.0400 #### [place] [facility] [place] [place] [facility] [address] [place], [address] THYROID STIM HORMONE Collected: 04/15/2018 Status: F Source: [place] (TSH) 2:59 PM [facility] REPOSITORY Order Comment: Has Patient had X-rays with Contrast this admission? N TYPE CODE TESTS RESULT OUT OF RANGE REFERENCE UNITS LAB L501.9520 0.358-3.74 uIU/mL High TSH 5.58 Performed By: #### L501.90952, L501.9520, L506.0400 #### [facility] [address] [place], [address] T4 FREE DIRECT Collected: 04/15/2018 Status: F Source: [place] 2:59 PM [facility] REPOSITORY Order Comment: Has Patient had X-rays with Contrast this admission? N TYPE CODE TESTS RESULT OUT OF RANGE REFERENCE UNITS LAB L506.0400 0.76-1.46 ng/dL Normal T4 FREE 0.79 DIRECT Performed By: #### L501.67390, L501.9520, L506.0400 #### [facility] [address] [place], [place], [address] TESTOSTERONE, TOTAL / Collected: 04/15/2018 Status: F Source: [place] FREE 2:59 PM [facility] REPOSITORY Order Comment: Has Patient had X-rays with Contrast this admission? N TYPE CODE TESTS RESULT OUT OF RANGE REFERENCE UNITS LAB L3100.5320 8-48 ng/dL Low < 3 TESTOSTER,T OTAL LAB L3100.5340 . ng/dL Test Normal not performed TESTOSTER,F REE Result Comment: Unable to calculate result since non-numeric result obtained for component test. LAB L3100.5360 . % Test not Normal TESTOSTER %FREE performed Result Comment: Due to technical problems in testing, a valid result was not obtained. The remaining specimen was not sufficient for repeat testing. 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 Still has vertigo episodes lasting a couple minut es each time. No triggers still. Excessive nose blowing can cause the vertigo. RECALL: 47 yo female referred by Dr. Brooks at [facility] for initial evaluation of vertigo. The patient describes her symptoms as vertigo lasting from hours to days triggered by blowing her nose asso ciated with right high frequency tinnitus/ popping, aural fullness, mild right otalgia and right hearing loss. This has been happening for years, last episodes seem to be worse in intensity. She also en dorses mild headaches usually following vertiginous episodes along with nausea. Positional changes make episodes worse and improve with fixation. No hx of head trauma, LOC, ear infections, otorrhea, leigha al drainage, otologic surgery autophony. Does endorse episodes can be triggered by high intensity sounds. Of note pt received a course of prednisone taper with improvement of right low frequency SNHL af ter her most recent episode of vertigo and hearing loss. Her audiogram on October 17 demonstrated a profound hearing loss in the right ear and subsequent audiograms demonstrated improvement in the low frequ encies but no improvement in the high frequencies. Review of Systems ENT and Constitutional systems have been reviewed and are negative for complaint except what is stated in the HPI and/or Past Medical History. 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) Tinnitus of right ear (388.30) (H93.11) Vertigo (780.4) (R42) Past Medical History History of hypertension (V12.59) (Z86.79) History of sleep apnea (V13.89) (Z86.69) History of Thyroid trouble (246.9) (E07.9) Surgical History History of Hysterectomy History of Tubal Ligation Family History Family history of pancreatic cancer (V16.0) (Z80.0) Social History Cigarette smoker (305.1) (F17.210) Currently working Lives with family Occasional alcohol use Allergies lisinopril Recorded By: Gabbi Lewis; 11/24/2017 8:09:17 AM Current Meds DiazePAM 5 MG Oral Tablet; TAKE 1 TABLET NEEDED; Therapy: [id number] to (Evaluate:[id number]); Last Rx:[id number] Ordered Rx By: Siobhan Lynne; Dispense: 30 Days ; #:30 Tablet; Refill: 0;For: 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; ABIEL = N; Print Rx Formulary Override Reason: Patient has requested non-preferred drug Ondansetron 4 MG Oral Tablet Disintegrating; Place one tablet under the tongue every 8 hrs as needed nausea; Therapy: 01Mar2018 to (Last Rx:[id number]) Requested for: 02Mar2018 Ordered Rx By: Siobhan Lynne; Dispense: 0 Days ; #:20 Tablet Disintegrating; Refill: 1;For: Vertigo; ABIEL = N; Verified Transmission to [facility] AmLODIPine Besylate 5 MG Oral Tablet; TAKE 1 TABLET BY MOUTH EVERY DAY; Therapy: 02Sep2016 to Recorded Rx By: Ruiz; Dispense: 30 Days ; #:30; Refill: 0; ABIEL = N; Record; Last Updated By: Gabbi Lewis; 11/24/2017 8:09:16 AM DiazePAM 2 MG Oral Tablet; TAKE 1 TABLET EVERY 8 HOURS NEEDED; Therapy: 03Nov2017 to Recorded Rx By: Jeet; Dispense: 10 Days ; #:30; Refill: 0; ABIEL = N; Record; Last Updated By: Gabbi Lewis; 11/24/2017 8:09:16 AM IBU 800 MG Oral Tablet; TAKE 1 TABLET EVERY 8 HOURS NEEDED; Therapy: 25Jul2016 to Recorded Rx By: Ray; Dispense: 20 Days ; #:60; Refill: 0; ABIEL = N; Record; Last Updated By: Gabbi Lewis; 11/24/2017 8:09:16 AM Levothyroxine Sodium 125 MCG Oral Tablet; TAKE 1 TABLET BY MOUTH EVERY DAY; Therapy: 13Jun2016 to Recorded Rx By: Ray; Dispense: 30 Days ; #:30; Refill: 0; ABIEL = N; Record; Last Updated By: Gabbi Lewis; 11/24/2017 8:09:16 AM Lyrica 150 MG Oral Capsule; TAKE 1 CAPSULE TWICE DAILY; Therapy: 28Oct2016 to Recorded Rx By: Ray; Dispense: 30 Days ; #:60; Refill: 0; ABIEL = N; Record; Last Updated By: Gabbi Lewis; 11/24/2017 8:09:16 AM Meclizine HCl - 25 MG Oral Tablet; TAKE 1 TABLET EVERY 6 HOURS NEEDED; Therapy: 03Nov2017 to Recorded Rx By: Jeet; Dispense: 10 Days ; #:40; Refill: 0; ABIEL = N; Record; Last Updated By: Gabbi Lewis; 03/30/2018 3:18:52 PM Premarin 1.25 MG Oral Tablet; TAKE 2 TABLETS BY MOUTH EVERY DAY; Therapy: 18Sep2016 to Recorded Rx By: Ray; Dispense: 30 Days ; #:60; Refill: 0; ABIEL = N; Record; Last Updated By: Gabbi Lewis; 11/24/2017 8:09:16 AM Vitals Vital Signs Recorded: 30Mar2018 02:25PM Height5 ft 4 in Nlrkkp486 lb 7 oz BMI Eekgojhjzv35.58 BSA Calculated2.1 Physical Exam Constitutional General appearance: Healthy-appearing, well-nourished, well groomed, in no acute distress. Ability to communicate: Normal communication without aids, normal voice quality. Head and face: Atraumatic with no masses, lesions, or scarring. Facial strength: Normal strength and symmetry, no synkinesis or facial tic. Eyes Pupils and irises: EOM intact, PERRLA, conjunctiva non-injected. Ears Otoscopic examination: External inspection of ears: Ears normally formed and free of lesions. R EAC patent, TM clear, vertigo induced with insufflation L EAC patent, TM clear Nose: Dorsum symmetric with no visible or palpable deformities. External inspection of nose: No nasal lesions, lacerations, or scars. Nasal tip symmetrical with normal nasal valves. Oral Cavity/Mouth Lips, teeth, and gums: Normal lips, gums, and dentition. Oropharynx: Mucosa moist, no lesions. Hard and soft palate normal. Tongue normal, no lesions or edema. Tonsils normal, no lesions. Normal posterior pharynx and hypopharynx. Normal tongue base and pyriform sinus. Neck: Symmetrical, trachea midline. No masses visible. Palpation of cervical lymph nodes: No palpable lymph node enlargement, no submandibular adenopathy, no anterior cervical adenopathy, no supraclavicular adenopathy. Neurological/Psychiatric Cranial Nerve Examination: II - XII grossly intact. Orientation to person, place, and time: Normal. Mood and affect: Normal. Skin: Normal without rashes or lesions. Pulmonary Respiratory effort: Chest expands symmetrically. Cardiovascular: Good peripheral pulses Peripheral vascular system: No varicosities, carotid pulse normal, no edema. No jugular venous distension. Extremities Appearance of extremities: Normal. Gait normal. 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) Vertigo (780.4) (R42) Orders Start: Sudafed 12 Hour 120 MG Oral Tablet Extended Release 12 Hour; TAKE 1 TABLET EVERY 12 HOURS as needed for nasal congestion Rx By: Siobhan Lynne; Dispense: 0 Days ; #:30 Tablet; Refill: 2;For: Tinnitus of right ear, Vertigo; ABIEL = N; Verified Transmission to [facility]; Last Updated By: [facility]; 03/30/2018 3:22:27 PM IO Vestibular Evoked Myogenic Potential; Status:Active - Perform Order,Retrospective Authorization; Requested for:30Mar2018; Perform:In Office; Order Comments:Rule out a perilymphatic fistula or superior semicircular canal dehiscence; Due:[id number]; Last Updated By:Freddie Hebert; 03/30/2018 2:36:58 PM;Ordered; For:Vertigo; Ordered By:Siobhan Lynne; Renew: Meclizine HCl - 25 MG Oral Tablet; TAKE 1 TABLET EVERY 6 HOURS NEEDED Rx By: Siobhan Lynne; Dispense: 0 Days ; #:30 Tablet; Refill: 2;For: Vertigo; ABIEL = N; Call Rx; Last Updated By: Freddie Hebert; 03/30/2018 3:18:52 PM Provider Impressions 47 yo female presenting for evaluation of vertigo, right aural fullness, tinnitus and SNHL triggered by pressure and high intensity sound. Her symptoms can be related to a perilymphatic fistula vs SCCD. - VEMPs script given - CT IAC for evaluation of bony anatomy to be requested from [facility] -Will call w read for CT IAC -Refill of nasal decongestants and meclizine given Attending Note Attestation: I saw and evaluated the patient. I personally obtained the rainey and critical portions of the history and physical exam or was physically present for rainey and critical portions performed by srinivas e attendee. I reviewed the attendee's documentation and discussed the patient with the attendee. I agree with the attendee's medical decision making as documented on the attendee's note. Signatures Electronically signed by : Siobhan Lynne MD; Mar 30 2018 4:22PM EST (Author) ORB SELLA POST Observed: 03/16/2018 Status: F Source: [place] FOSSA EAR W/O 6:06 PM [facility] REPOSITORY [facility] Imaging Services [address] [place] [address] Orb Sella Post Fossa Ear w/o MR#: [id number] Acct: [id number] Name: BALJIT WYNN Rep #: [id number] : 1970 F 48 From: Zo Duong PCP: Noemy Noel Status: REG CLI Study: Orb Sella Post Fossa Ear w/o Date of Exam: 03/16/18 Exam# [id number] Ordering Dr: Tung Bermudez o. STUDY: CT TEMPORAL BONES WITHOUT CONTRAST REASON FOR EXAM: Female, 48 years old. 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 RADIATION DOSAGE (If Supplied By Facility): CTDIvol = ( 67.58 ) mGy, DLP = ( 569.79 ) mGycm TECHNIQUE: The patient was scanned in a multi detector CT scanner. High resolution transaxial imaging was performed without the administration of intravenous contrast material. Sagittal and coronal images were reconstructed. Individualized dose optimization techniques were used for this CT. COMPARISON: None. FINDINGS: RIGHT TEMPORAL BONE Normal right external auditory canal. Normal malleus, incus and stapedius. Normal malleoincudal and incudostapedial articulations. Normal epitympanum, mesotympanum, and hypotympanum. Normal right posterior, superior and lateral semicircular canals. Normal right vestibule and cochlea. Normal tympanic segment of the facial nerve. Normal Korner's septum, tegmen tympani, arcuate eminence and aditus ad antrum. Normal right mastoid air cells. Normal right petrous apex. Normal right petrous carotid artery. Normal right jugular fossa. Normal right internal auditory canal. Normal right vestibular and cochlear aqueducts. LEFT TEMPORAL BONE Normal left external auditory canal. Normal malleus, incus and stapedius. Normal malleoincudal and incudostapedial articulations. Normal epitympanum, mesotympanum, and hypotympanum. Normal left posterior, superior and lateral semicircular canals. Normal left vestibule and cochlea. Normal tympanic segment of the facial nerve. Normal Korner's septum, tegmen tympani, arcuate eminence and aditus ad antrum. Normal left mastoid air cells. Normal left petrous apex. Normal left petrous carotid artery. Normal left jugular fossa. Normal left internal auditory canal. Normal left vestibular and cochlear aqueducts. CT/Orb Sella Post Fossa Ear w/o IMPRESSION: Normal CT examination of the bilateral temporal bones. Electronically Signed: Zo Duong MD at 12:56 EDT Tel , Service support , CC: Noemy JOHNSTON; SIOBHAN LYNNE Invasive Manager: Signed 12 LEAD ELECTROCARDIOGRAM Observed: 02/22/2018 Status: F Source: [place] 2:17 PM [facility] REPOSITORY [facility] Cardiovascular Services [address] [place] [address] 12 Lead EKG 02/21/18 1804 MR#: [id number] Acct: [id number] Name: MAXIBALJIT Adam Rep #: [id number] : 1970 48 From: Vishal Strauss MD Attending Dr: Status: DEP ER Ordering Dr: Velia Hay MD Date: 02/21/18 Location: ED Sex: F AA Admitted: Test Reason : DYSRHYTHMIA Blood Pressure : / mmHG Vent. Rate : 071 BPM Atrial Rate : 071 BPM P-R Int : 178 ms QRS Dur : 090 ms QT Int : 400 ms P-R-T Axes : 043 006 055 degrees QTc Int : 434 ms Normal sinus rhythm Voltage criteria for left ventricular hypertrophy Abnormal ECG Confirmed by VISHAL STRAUSS MD ([id number]), fan mail editor LUCI COLÓN ([id number]) on 02/22/2018 2:16:59 PM Referred By: KRAIG Confirmed By:VISHAL STRAUSS MD 02/22/18 1417 Date Vishal Strauss MD CC: Velia Hay MD; Noemy JOHNSTON Signed EMERGENCY DEPARTMENT Observed: 02/21/2018 Status: F Source: [place] SUMMARY 10:33 PM [facility] REPOSITORY [facility] Medical Records Department [address] [place] [address] Emergency Department Summary 02/21/18 1815 MR#: [id number] Acct: [id number] Name: BALJIT WYNN Rep #: [id number] : 1970 48 From: Velia Hay MD PCP: Noemy Noel Status: REG ER - ER Visit Summary Date of Service: 02/21/18 Chief Complaint: Chest pain History of Present Illness: The patient is a 48 F presenting with chest pain and pressure. She states that the symptoms started yesterday. She had 3 hours of chest pressure with radiation to her neck. She states it then resolved. She does not recall anything that makes it better or worse. The symptoms started again 1 hour ago. She denies shortness of breath. She has mild cough. She is been treated for hives for the past 2 weeks she has been on prednisone. Her Lyrica was stopped. She complains of itching all over and intermittent hives. Denies difficulty breathing or swallowing. Denies other complaints. She has a history of hypertension, hypothyroidism. She is a smoker and uses cocaine. She had a stress test in September 2017 which she states was normal. Physical Examination: Vitals are stable. Patient is afebrile. Alert no acute distress. HEENT exam is unremarkable. No tongue swelling. No pharyngeal edema. Neck is supple. Lungs are clear and equal bilaterally. No wheezing Heart is regular rate and rhythm. Abdomen is soft nontender nondistended. Extremities are unremarkable. Skin is warm and dry. Mild urticaria upper extremities No focal neurologic deficit. Remainder of exam is unremarkable. Emergency Department Course and Treatment: Patient was given aspirin, Benadryl, Solu-Medrol. EKG is sinus rate of 71 with no acute changes. Chest x-ray shows no acute process. CBC shows white count 11.3. Chemistries show potassium 3.4, glucose 131, creatinine 1.23. Troponin is negative. D-dimer was elevated at 1.33. CTA chest was obtained and is normal CTA chest examination, without a demonstrated pulmonary embolism or arterial dissection. Delta troponin was obtained and is negative. Patient is requesting discharge. Her symptoms have not worsened. She has no difficulty breathing or swallowing. She will follow-up with her primary care physician. She is advised to return to ED for worsening complaints. Disposition: Discharge home Impression: Atypical chest pain, urticaria This note was generated with [employer] dictation software. It may contain incorrect words, spelling, and punctuation that were not noted in review of the chart prior to signing ED Disposition - Plan for ED Patient: Chief Complaint: Chest Pain Referrals: Torri Duncan [NON-STAFF] - What to do if you have Problems For any increased pain, shortness of breath, bleeding, nausea or vomiting, chest pain, or any unexpected problems, contact your Primary Care Provider. Call [facility] ([phone]) or report to the closest Emergency Room. Call 911 if necessary. 02/21/18 5209 <Electronically signed by Velia Hay MD> Date Velia Hay MD Cosigner Signature (If Indicated): Date CC: Noemy JOHNSTON DISCHARGE INSTRUCTION Observed: 02/21/2018 Status: F Source: [place] 10:33 PM [facility] REPOSITORY [facility] Medical Records Department [address] [place] [address] Discharge Instruction 02/21/182232 MR#: [id number] Acct: [id number] Name: BALJIT WYNN Rep #: [id number] : 1970 48 From: Velia Hay MD PCP: Noemy Noel Status: REG ER ED Disposition - Plan for ED Patient: Chief Complaint: Chest Pain Instructions: ED Chest Pain Atypical Unkn Cause Referrals: Kerline Wilkerson,Torri Jean Baptiste [NON-STAFF] - What to do if you have Problems For any increased pain, shortness of breath, bleeding, nausea or vomiting, chest pain, or any unexpected problems, contact your Primary Care Provider. Call [facility] ([phone]) or report to the closest Emergency Room. Call 911 if necessary. 02/21/182232 <Electronically signed by Velia Hay MD> Date Velia Hay MD Cosigner Signature (If Indicated): Date CC: Noemy JOHNSTON TROPONIN-I Collected: 02/21/2018 Status: F Source: [place] 9:25 PM [facility] REPOSITORY Order Comment: 'TROP' Serial specimen #1, #2 or #3: 2 TYPE CODE TESTS RESULT OUT OF RANGE REFERENCE UNITS LAB L501.4010 <0.045 ng/mL Normal < 0.015 TROPONIN-I Result Comment: TROPONIN-I EXPECTED VALUES <0.045 Negative 0.045 - 0.590 Consistent with Cardiac Damage > OR = 0.600 Critical Value Not every elevated troponin is indicative of SC. These values should be used with clinical judgement in examining the patient's clinical picture for diagnosis. To establish a diagnosis of SC versus myocardial injury, there must be a demonstrated rise and/or fall in the troponin values, in addition to ischemic symptoms, EKG changes, new regional wall motion abnormality, and/or angiographical evidence. PLEASE NOTE: REFERENCE RANGES EDITED 17 Performed By: #### L501.4010 #### [facility] [address] [place], [address] CTA CHEST W/WO Observed: 02/21/2018 Status: F Source: [place] CONTRAST 7:11 PM [facility] REPOSITORY [facility] Imaging Services [address] [place] [address] CTA Chest W/WO Contrast MR#: [id number] Acct: [id number] Name: BALJIT WYNN Rep #: [id number] : 1970 F 48 From: Josh Morin DO PCP: Noemy Noel Status: REG ER Study: CTA Chest W/WO Contrast Date of Exam: 02/21/18 Exam# [id number] Ordering Dr: Velia Hay MD STUDY: CTA CHEST REASON FOR EXAM: Female, 48 years old. Hives over the entire body RADIATION DOSAGE (If Supplied By Facility): CTDIvol = ( 30.02 ) mGy, DLP = ( 639.17 ) mGycm TECHNIQUE: The examination was performed with the intravenous administration of 100ML ml of Isovue 370 contrast material. Post-processing of the angiographic images was performed, with multiplanar reformation and 3D reconstruction. Individualized dose optimization techniques were used for this CT. COMPARISON: Chest x-ray earlier FINDINGS: Normal enhancement of the main pulmonary artery and right and left pulmonary arteries. Normal enhancement of the bilateral peripheral pulmonary arteries. There is no demonstrated pulmonary embolism. Normal thoracic aorta and visualized great vessels. There is no demonstrated aortic dissection. Normal heart and pericardium. Normal mediastinum. Normal hilar regions. Normal visualized trachea and bronchi. The lungs are well expanded. Normal pulmonary parenchyma. Normal pleura. Normal chest wall structures. There are degenerative changes of thoracic spine. Normal visualized upper abdomen. CT/CTA Chest W/WO Contrast IMPRESSION: Normal CTA chest examination, without a demonstrated pulmonary embolism or arterial dissection. Electronically Signed: Josh Morin DO at 20:22 EDT Tel , Service support , CC: Velia Hay MD; Noemy JOHNSTON Invasive Manager: Signed D-DIMER QUANTITATIVE Collected: 02/21/2018 Status: F Source: [place] (DVT/PE) 6:39 PM [facility] REPOSITORY Order Comment: REDRAW. PREVIOUS SPECIMEN REJECTED DUE TO HEMOLYSIS. 02/21/18 1835 TYPE CODE TESTS RESULT OUT OF RANGE REFERENCE UNITS LAB L300.8000 0.27-0.49 FEU/ug/m High alert D-DIMER 1.33 QUANT Result Comment: D-Dimer ELEVATED (>0.49): Additional studies and clinical assessments are indicated to conclude diagnosis of: Deep Vein Thrombosis (DVT) or Pulmonary Embolism (PE) CRITICAL VALUE VERIFIED. CALLED TO NKORN 02/21/18 1900 Tess Rogers. RESULTS READ BACK BY SAME . Performed By: #### L300.8000 #### [facility] [address] [place], [address] BASIC METABOLIC Collected: 02/21/2018 Status: F Source: [place] PROFILE (BMP) 6:39 PM [facility] REPOSITORY Order Comment: REDRAW. PREVIOUS SPECIMEN REJECTED DUE TO HEMOLYSIS. 02/21/18 1835 'TROP' Serial specimen #1, #2, #3, or #4: 1 TYPE CODE TESTS RESULT OUT OF RANGE REFERENCE UNITS LAB L501.0100 74-106 mg/dL High GLU 131 Result Comment: Fasting Glucose result greater than or equal to 126 mg/dL suggests DIABETES MELLITUS per A.D.A. criteria. Please note revised GLUCOSE reference range effective 2017. LAB L501.1000 7-18 mg/dL Normal BUN 12 LAB L501.1100 0.55-1.02 mg/dL High CREAT,SERUM 1.23 Result Comment: The validity of the calculated GFR AND GFRAA in patients over 70 years has not been determined. Clinical correlation is essential. LAB L501.1110 >60 mL/min Low EST GFR 50 Result Comment: Non- GFR Calc LAB L501.1115 >60 mL/min Normal EST GFR - AA 60 Result Comment: GFR Calc LAB L501.1255 ml/min Normal Estimated CRCL 49.35 LAB L501.1300 10-20 RATIO Low BUN/CRE 9.8 LAB L501.2200 8.5-10 mg/dL Normal .1 CA 8.7 LAB L501.5300 136-14 mmol/L Normal 5 NA 140 LAB L501.5600 3.5-5. mmol/L Low 1 K 3.4 LAB L501.5900 98-107 mmol/L Normal CL 105 LAB L501.6100 21.0-3 mmol/L Normal 2.0 CO2 29.0 LAB L501.6200 5-15 Normal GAP 6 Performed By: #### L500.2500, L501.4010 #### [facility] [address] [place], [place], [address] TROPONIN-I Collected: 02/21/2018 Status: F Source: [place] 6:39 PM [facility] REPOSITORY Order Comment: REDRAW. PREVIOUS SPECIMEN REJECTED DUE TO HEMOLYSIS. 02/21/18 1835 'TROP' Serial specimen #1, #2, #3, or #4: 1 TYPE CODE TESTS RESULT OUT OF RANGE REFERENCE UNITS LAB L501.4010 <0.045 ng/mL Normal < 0.015 TROPONIN-I Result Comment: TROPONIN-I EXPECTED VALUES <0.045 Negative 0.045 - 0.590 Consistent with Cardiac Damage > OR = 0.600 Critical Value Not every elevated troponin is indicative of SC. These values should be used with clinical judgement in examining the patient's clinical picture for diagnosis. To establish a diagnosis of SC versus myocardial injury, there must be a demonstrated rise and/or fall in the troponin values, in addition to ischemic symptoms, EKG changes, new regional wall motion abnormality, and/or angiographical evidence. PLEASE NOTE: REFERENCE RANGES EDITED 17 Performed By: #### L500.2500, L501.4010 #### [facility] [address] [place], [address] CHEST 1 VIEW Observed: 02/21/2018 Status: F Source: [place] (PORTABLE) 6:13 PM [facility] Imaging Services [address] [place] [address] Chest 1 View (Portable) MR#: [id number] Acct: [id number] Name: BALJIT WYNN Rep #: [id number] : 1970 F 48 From: Josh Morin DO PCP: Noemy oNel Status: REG ER Study: Chest 1 View (Portable) Date of Exam: 02/21/18 Exam# [id number] Ordering Dr: Velia Hay MD STUDY: X-RAY CHEST REASON FOR EXAM: Female, 48 years old. Possible allergic reaction TECHNIQUE: Single AP portable view of the chest. COMPARISON: 09/23/2017 FINDINGS: The lungs are clear and expanded. There is no demonstrated pleural abnormality. Normal size heart. Normal mediastinum and grey. Normal visualized pulmonary arteries. Normal visualized aortic arch and descending thoracic aorta. Normal visualized thoracic spine. Normal visualized ribs, clavicles, and shoulders. There is no demonstrated abnormality of the visualized soft tissue structures of the upper abdomen. RAD/Chest 1 View (Portable) IMPRESSION: Normal x-ray examination of the chest. Electronically Signed: Josh Morin DO at 18:28 EDT Tel , Service support , CC: Velia Hay MD; Noemy JOHNSTON Invasive Manager: Signed CBC W/DIFF, AUTOMATED Collected: 02/21/2018 Status: F Source: [place] 6:11 PM [facility] REPOSITORY TYPE CODE TESTS RESULT OUT OF RANGE REFERENCE UNITS LAB L100.1000 4.4-11.0 K/mm3 High WBC 11.3 LAB L100.1200 4.2-5.4 M/mm3 Normal RBC 4.94 LAB L100.1300 12.0-15.0 g/dl Normal HGB 13.7 LAB L100.1400 37-47 % Normal HCT 42.0 LAB L100.1500 81-99 fL Normal MCV 85.0 LAB L100.1600 27.0-32.0 pg Normal MCH 27.7 LAB L100.1700 32-36 g/gl Normal MCHC 32.6 LAB L100.1810 11.6-14.6 % Normal RDW CV 13.2 LAB L100.1820 35.1-43.9 fl Normal RDW SD 40.6 LAB L100.1900 150-450 K/mm3 Normal PLT 283 LAB L100.2000 6.2-12.0 fl Normal MPV 10.8 LAB L100.2100 47-70 % Low NEUT% 46.0 LAB L100.2200 19-41 % High LY% 44.9 LAB L100.2300 0-10 % Normal MONO% 8.2 LAB L100.2400 0-5 % Normal EO% 0.4 LAB L100.2500 0-1 % Normal BASO% 0.4 LAB L100.2550 0.0-0.9 % Normal IM GRAN % 0.100 Result Comment: IG% - Immature Granulocytes (promyelocytes, myelocytes and metamyelocytes) > 1% indicates that a LEFT SHIFT is Present. LAB L100.2620 2.0-7.7 X10 3/uL Normal Absolute Neut 5.2 LAB L100.2720 0.83-4.51 X10 3/ul High Absolute Lymph 5.07 LAB L100.4500 SMEAR Normal COMMENT Result Comment: LYMPHOCYTOSIS NOTED Performed By: #### L100.0100 #### [facility] [address] [place], [place] [address] [place], [place], [address] CNOV Observed: 02/05/2018 Status: COMPLETED Source: [place] 3:00 PM [facility] REPOSITORY Office Visit (WSTR) BALJIT WYNN ([id number]) 1970 F Date Time Provider Department 02/05/18 3:00 PM AUSTYN REYNOSO (MEDICAL PHYSIOLOGIST) [facility] During your visit today, we recorded the following information about you: Temperature Pulse Respiration Weight 98.8 degrees 68/minute 16/minute 104.3 kg Austyn Reynoso APRN.CNP 02/05/2018 5:04 PM Signed Subjective HPI Patient presents with: Rash: x 1 week Denies changes to soaps, detergents, lotions, perfumes, new medications, or exposures to known allergens. States starting working at [employer] a week and half ago but no known allergens. Denies any otc treatment for symptoms. Review of Systems Constitutional: Negative for chills and fever. Respiratory: Negative for shortness of breath. Skin: Positive for itching and rash. All other systems reviewed and are negative. PAST MEDICAL HISTORY Diagnosis Date - ADHD (attention deficit hyperactivity disorder) - Anxiety - Cocaine abuse (HCC) 10/2013 - Current smoker - GERD (gastroesophageal reflux disease) - GOITER NOS 05/31/2008 Previously with hyperthyroidism but presented with hypothyrodism in 05-26: US ordered US 05-26: 6.8 mm nodule in the mid R lobe with a heterogenously enlarged thyroid - Hormone replacement therapy (HRT) 03/2012 - Hypercholesterolemia 10/2012 - Hypertension - HYPOTHYROIDISM NOS 05/31/2008 TSH 0.07 (0.5-6) in 05-26: likely suppressed from thyrotoxicosis in the past (consider TRH testing) T3 86 (94-170) in 05-26 T4 4.2 (4.9- 11) in 05-26 TU and FTI in therapeutic range as of 05-26 MRI 05-26 with NL findings and no pituitary issues - Marijuana abuse 12/2012, 10/2013 - Morbid obesity (HCC) 05/31/2008 - Pain in thoracic spine 05/31/2008 PAST SURGICAL HISTORY Procedure Laterality Date - APPENDECTOMY 03/2012 same time as hysterectomy - CARPAL TUNNEL 2013 left - EXTRACTION ERUPTED TOOTH/EXR 2016 infected tooth extracted - INDUCED - EVACUATION x 2 - REMOVAL OF OVARY/TUBE(S) 2011 Qzhscdjy-zthqaxukxaiq-xcau separate from hysterectomy - REVISE MEDIAN N/CARPAL TUNNEL SURG 08/20/2012 Carpal tunnel decomp - right - S TUBAL LIGATION 1993 - SUTURE SM INTEST,MULTPL PERF 11/7/12 x 2; during BSO - TOTAL ABDOM HYSTERECTOMY 2011 JANNA for fibroids ALLERGIES Codeine; Lisinopril MEDICATIONS fluticasone (FLONASE) 50 mcg/actuation nasal spray Use 2 Sprays in each nostril once daily. DULOXETINE HCL (CYMBALTA ORAL) Take 50 mg by mouth once daily. levothyroxine (SYNTHROID) 125 mcg tablet Take 1 tablet by mouth once daily. amLODIPine (NORVASC) 5 mg tablet Take 1 tablet by mouth once daily. estrogens conjugated (PREMARIN) 1.25 mg tablet Take 1 tablet by mouth once daily. OMEPRAZOLE ORAL Take by mouth as needed. FAMILY HISTORY Problem Relation Age of Onset - Hypertension Father - other (Pancreatic cancer [Other]) Father - Diabetes Father Social History Substance Use Topics - Smoking status: Current Every Day Smoker Packs/day: 0.50 Years: 15.00 Types: Cigarettes - Smokeless tobacco: Never Used - Alcohol use No Comment: rare Objective Physical Exam Constitutional: She is well-developed, well-nourished, and in no distress. HENT: Head: Normocephalic. Mouth/Throat: Oropharynx is clear and moist. Eyes: Conjunctivae are normal. Neck: Normal range of motion. Skin: Rash noted. Rash is urticarial (generalized). Nursing note and vitals reviewed. ASSESSMENT/PLAN: 1. Urticaria - ICD9: 708.9, ICD10: L50.9 - Likely viral or allergic etiology discussed with patient - Treatment with systemic steriods burst- see orders - Anti itch therapy of Oral Benydryl recommended prn - Follow up if symptoms persist or worsen. Prescription instructions reviewed with patient as applicable. Patient advised if symptoms do not improve or if symptoms worsen sooner, to contact their primary care physician. Potential red flag symptoms discussed with the patient. Reviewed appropriate action plan to take if red flag symptoms occur. Patient agreeable to treatment plan. Austyn Reynoso APRN.RA Reynoso APRN.CNP 02/05/2018 2:59 PM Signed [facility] [address] [place], [place] [address] Emergency Department Diagnosis: Assessment Acute Urticaria You have urticaria which is sometimes called hives. This itchy rash is an allergic reaction. Often it is an allergy to a medication, to an infection, or even to an insect bite or sting. Sometimes the cause of the allergy cannot be found. The hives usually disappear 1 or 2 weeks after the cause of the allergy has disappeared. Even when the cause of the hives cannot be discovered, the bumps usually go away in several weeks at most. The best treatment for hives is an antihistamine, and there are many different choices; Diphenhydramine (Benadryl), which is over the counter, or hydroxyzine (Atarax) are good choices at night, because they will help you to sleep, even if you are still itchy. Antihistamines are better at preventing new hives than at getting rid of those already on your skin. So don't wait to get the hives before you take the medicine-be sure to take it regularly. If the antihistamine that your health care provider has given you does not greatly improve your hives within 3 days, or if you find in 3 weeks that you still get hives when you stop taking the medicine, you should follow up with your regular health care provider. Sometimes different types of antihistamines work in different patients, and trying other medications may be beneficial. Referring Provider: SELF [[id number]] Allergies As of Date: 02/05/2018 Noted Allergy Reaction CODEINE 07/23/2009 9 - Itching LISINOPRIL 07/19/2012 10 - Anaphylaxis Date Reviewed: 02/05/2018 Reviewed by: Celeste Morgan Ma - Fully Assessed Reason for Visit: Rash [1087] Cmt: x 1 week Primary Visit Diagnosis:Urticaria [L50.9] Order(s):predniSONE (DELTASONE) 20 mg tabletTake 2 tablets by mouth once daily for 5 days. Take daily with food.Disp: 10 tabletRfl: 0 triamcinolone acetonide (KENALOG) 0.1 % creamApply 1 application to affected area three times daily for 10 days. Apply sparingly to area for rash/itching.Disp: 60 gRfl: 0 diphenhydrAMINE (BENADRYL) 25 mg capsuleFor age 12+ years: Take 1-2 capsules by mouth every 6 hours as needed. (may cause drowsiness)Disp: 48 capsuleRfl: 0 Prescriptions as of 02/05/2018 Sig: FLUTICASONE 50 MCG/ACTUATION * Use 2 Sprays in each nostril * CYMBALTA ORAL Take 50 mg by mouth once oh* LEVOTHYROXINE 125 MCG TABLET Take 1 tablet by mouth once d* AMLODIPINE 5 MG TABLET Take 1 tablet by mouth once d* CONJUGATED ESTROGENS 1.25 MG * Take 1 tablet by mouth once d* PREDNISONE 20 MG TABLET Take 2 tablets by mouth once * TRIAMCINOLONE ACETONIDE 0.1 %* Apply 1 application to affect* DIPHENHYDRAMINE 25 MG CAPSULE For age 12+ years: Take 1-2 c* OMEPRAZOLE ORAL Take by mouth as needed. Problem List As Of Date 02/05/2018 Noted Resolved Routine general medical examination at a [facility]*INVALID FOR*08/03/2015 More... OBESITY NOS [E66.9] INVALID FOR*08/03/2015 GOITER NOS [E04.9] INVALID FOR* More... Hypothyroidism [E03.9] INVALID FOR* More... PAIN IN THORACIC SPINE [M54.6] INVALID FOR* More... Unspecified sleep apnea [G47.30] INVALID FOR*08/03/2015 More... Pain in Joint, Lower Leg [M25.569] INVALID FOR* Puncture wound of small intestine, open [S36.49*INVALID FOR* Incisional pain [L76.82] INVALID FOR* Right carpal tunnel syndrome [G56.01] INVALID FOR* Left carpal tunnel syndrome [G56.02] INVALID FOR* Tobacco abuse [Z72.0] INVALID FOR* Menopausal disorder [N95.9] INVALID FOR* Right upper quadrant abdominal pain [R10.11] INVALID FOR* Thoracic back pain [M54.6] INVALID FOR* Hypertension [I10] GERD (gastroesophageal reflux disease) [K21.9] Morbid obesity (HCC) [E66.01] INVALID FOR* Current smoker [F17.200] Marijuana abuse [F12.10] Cocaine abuse [F14.10] INVALID FOR* Other instructions from your clinician: [facility] [address] [place], [place] [address] Emergency Department Diagnosis: Assessment Acute Urticaria You have urticaria which is sometimes called hives. This itchy rash is an allergic reaction. Often it is an allergy to a medication, to an infection, or even to an insect bite or sting. Sometimes the cause of the allergy cannot be found. The hives usually disappear 1 or 2 weeks after the cause of the allergy has disappeared. Even when the cause of the hives cannot be discovered, the bumps usually go away in several weeks at most. The best treatment for hives is an antihistamine, and there are many different choices; Diphenhydramine (Benadryl), which is over the counter, or hydroxyzine (Atarax) are good choices at night, because they will help you to sleep, even if you are still itchy. Antihistamines are better at preventing new hives than at getting rid of those already on your skin. So don't wait to get the hives before you take the medicine- be sure to take it regularly. If the antihistamine that your health care provider has given you does not greatly improve your hives within 3 days, or if you find in 3 weeks that you still get hives when you stop taking the medicine, you should follow up with your regular health care provider. Sometimes different types of antihistamines work in different patients, and trying other medications may be beneficial. Prescriptions ordered this encounter Disp Refills Start End PREDNISONE 20 MG TABLET 10 t* 0 02/05/2018 02/10/2018 Route: ORAL Sig: Take 2 tablets by mouth once daily for 5 days. Take daily with food. TRIAMCINOLONE ACETONIDE 0.1 % TOPICA* 60 g 0 02/05/2018 02/15/2018 Route: TOPICAL Sig: Apply 1 application to affected area three times daily for 10 days. Apply sparingly to area for rash/itching. DIPHENHYDRAMINE 25 MG CAPSULE 48 c* 0 02/05/2018 02/12/2018 Sig: For age 12+ years: Take 1-2 capsules by mouth every 6 hours as needed. (may cause drowsiness) Disposition: Return if symptoms worsen or fail to improve. Follow-up and Disposition History Recorded Encounter Status:Closed by AUSTYN REYNOSO on 02/05/18 PROGRESS Observed: 02/05/2018 Status: COMPLETED Source: [place] 2:57 PM [facility] REPOSITORY HNO ID: [id number] Author: Austyn Silva (Gate Cutter) [place] Service: (none) Author Type: Nurse Practitioner Type: Progress Notes Filed: 02/05/2018 5:04 PM Note Text: Subjective HPI Patient presents with: Rash: x 1 week Denies changes to soaps, detergents, lotions, perfumes, new medications, or exposures to known allergens. States starting working at local [employer] a week and half ago but no known allergens. Denies any otc treatment for symptoms. Review of Systems Constitutional: Negative for chills and fever. Respiratory: Negative for shortness of breath. Skin: Positive for itching and rash. All other systems reviewed and are negative. PAST MEDICAL HISTORY Diagnosis Date - ADHD (attention deficit hyperactivity disorder) - Anxiety - Cocaine abuse (HCC) 10/2013 - Current smoker - GERD (gastroesophageal reflux disease) - GOITER NOS 05/31/2008 Previously with hyperthyroidism but presented with hypothyrodism in 05-26: US ordered US 05-26: 6.8 mm nodule in the mid R lobe with a heterogenously enlarged thyroid - Hormone replacement therapy (HRT) 03/2012 - Hypercholesterolemia 10/2012 - Hypertension - HYPOTHYROIDISM NOS 05/31/2008 TSH 0.07 (0.5-6) in 05-26: likely suppressed from thyrotoxicosis in the past (consider TRH testing) T3 86 (94-170) in 05-26 T4 4.2 (4.9-11) in 05-26 TU and FTI in therapeutic range as of 05-26 MRI 05-26 with NL findings and no pituitary issues - Marijuana abuse 12/2012, 10/2013 - Morbid obesity ([facility]) 05/31/2008 - Pain in thoracic spine 05/31/2008 PAST SURGICAL HISTORY Procedure Laterality Date - APPENDECTOMY 03/2012 same time as hysterectomy - CARPAL TUNNEL 2013 left - EXTRACTION ERUPTED TOOTH/EXR 2016 infected tooth extracted - INDUCED - EVACUATION x 2 - REMOVAL OF OVARY/TUBE(S) 2011 Rysitkqt-tthxpxsxjvte-xcei separate from hysterectomy - REVISE MEDIAN N/CARPAL TUNNEL SURG 08/20/2012 Carpal tunnel decomp - right - S TUBAL LIGATION 1993 - SUTURE SM INTEST,MULTPL PERF 03/24/12 x 2; during BSO - TOTAL ABDOM HYSTERECTOMY 2011 JANNA for fibroids ALLERGIES Codeine; Lisinopril MEDICATIONS fluticasone (FLONASE) 50 mcg/actuation nasal spray Use 2 Sprays in each nostril once daily. DULOXETINE HCL (CYMBALTA ORAL) Take 50 mg by mouth once daily. levothyroxine (SYNTHROID) 125 mcg tablet Take 1 tablet by mouth once daily. amLODIPine (NORVASC) 5 mg tablet Take 1 tablet by mouth once daily. estrogens conjugated (PREMARIN) 1.25 mg tablet Take 1 tablet by mouth once daily. OMEPRAZOLE ORAL Take by mouth as needed. FAMILY HISTORY Problem Relation Age of Onset - Hypertension Father - other (Pancreatic cancer [Other]) Father - Diabetes Father Social History Substance Use Topics - Smoking status: Current Every Day Smoker Packs/day: 0.50 Years: 15.00 Types: Cigarettes - Smokeless tobacco: Never Used - Alcohol use No Comment: rare Objective Physical Exam Constitutional: She is well-developed, well-nourished, and in no distress. HENT: Head: Normocephalic. Mouth/Throat: Oropharynx is clear and moist. Eyes: Conjunctivae are normal. Neck: Normal range of motion. Skin: Rash noted. Rash is urticarial (generalized). Nursing note and vitals reviewed. ASSESSMENT/PLAN: 1. Urticaria - ICD9: 708.9, ICD10: L50.9 - Likely viral or allergic etiology discussed with patient - Treatment with systemic steriods burst- see orders - Anti itch therapy of Oral Benydryl recommended prn - Follow up if symptoms persist or worsen. Prescription instructions reviewed with patient as applicable. Patient advised if symptoms do not improve or if symptoms worsen sooner, to contact their primary care physician. Potential red flag symptoms discussed with the patient. Reviewed appropriate action plan to take if red flag symptoms occur. Patient agreeable to treatment plan. Austyn Reynoso APRN.[facility] OFFICE VISIT Observed: 11/24/2017 Status: UNK Source: [facility] (AUDIOLOGY) 12:25 PM HOSPITALS REPOSITORY Chief Complaint Hearing evaluation due to hearing loss in the right ear and dizziness. Reference Documentation See scanned note Procedure Note: Audiogram. History of Present Illness Ms. Baljit Wynn, a 47 year old was seen today for a hearing evaluation at the referral of Dr. Siobhan Lynne. She was referred to Dr. Lynne by Dr. Brooks at [facility] for initial evaluation of vertigo. Ms. Wynn describes her symptoms as vertigo lasting from hours to days triggered by blowing her nose associated with right high frequency tinnitus/ popping, aural fullness, mild right otalgia and right hearing loss. This has been happening for years, last episodes seem to be worse in intensity. She also stated having mild headaches usually following vertiginous episodes along with nausea. Positional changes make episodes worse and improve with fixation. No history of head trauma, ear infections, otorrhea, nasal drainage, otologic surgery autophony. She also reported that her episodes can be trigger ed by high intensity sounds. She received a course of prednisone taper with improvement of right low frequency SNHL after her most recent episode of vertigo and hearing loss. Her audiogram on October 17 dem onstrated a profound hearing loss in the right ear and subsequent audiograms demonstrated improvement in the low frequencies but no improvement in the high frequencies. Patient's preferred language: Sudanese Preferred language of the parent, legal guardian or surrogate decision-maker of this minor or incapacitated patient: Sudanese No overt signs of domestic violence/neglect/abuse. No referral made to Plastics Nurse. Pain not interfering with optimal level of function or ability to assess and/or treat. Pain Scale rank: 0/10 Pain Scale used: Numeric No referral made to primary care provider (PCP). Factors/Barriers influencing patient's ability to complete assessment or learn: none. Person taught: patient. Readiness to learn: no barriers. Results of Teaching/Counseling: verbalize recall / understanding and teaching complete. 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) Past Medical History History of hypertension (V12.59) (Z86.79) History of sleep apnea (V13.89) (Z86.69) History of Thyroid trouble (246.9) (E07.9) Surgical History History of Hysterectomy History of Tubal Ligation Family History Family history of pancreatic cancer (V16.0) (Z80.0) Social History Cigarette smoker (305.1) (F17.210) Currently working Lives with family Occasional alcohol use Allergies lisinopril Recorded By: Gabbi Lewis; 11/24/2017 8:09:17 AM Current Meds DiazePAM 5 MG Oral Tablet (Valium); TAKE 1 TABLET NEEDED; Therapy: 32Lnl1004 to (Evaluate:96Ovm7161); Last Rx:[id number] Ordered Rx By: Siobhan Lynne; Dispense: 30 Days ; #:30 Tablet; Refill: 0;For: 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; ABIEL = N; Print Rx Formulary Override Reason: Patient has requested non-preferred drug AmLODIPine Besylate 5 MG Oral Tablet; TAKE 1 TABLET BY MOUTH EVERY DAY; Therapy: 02Sep2016 to Recorded Rx By: Ruiz; Dispense: 30 Days ; #:30 TABS; Refill: 0; ABIEL = N; Record; Last Updated By: Gabbi Lewis; 11/24/2017 8:09:16 AM DiazePAM 2 MG Oral Tablet; TAKE 1 TABLET EVERY 8 HOURS NEEDED; Therapy: 03Nov2017 to Recorded Rx By: Jeet; Dispense: 10 Days ; #:30 TABS; Refill: 0; ABIEL = N; Record; Last Updated By: Gabbi Lewis; 11/24/2017 8:09:16 AM IBU 800 MG Oral Tablet; TAKE 1 TABLET EVERY 8 HOURS NEEDED; Therapy: 25Jul2016 to Recorded Rx By: aRy; Dispense: 20 Days ; #:60 TABS; Refill: 0; ABIEL = N; Record; Last Updated By: Gabbi Lewis; 11/24/2017 8:09:16 AM Levothyroxine Sodium 125 MCG Oral Tablet; TAKE 1 TABLET BY MOUTH EVERY DAY; Therapy: 13Jun2016 to Recorded Rx By: Ray; Dispense: 30 Days ; #:30 TABS; Refill: 0; ABIEL = N; Record; Last Updated By: Gabbi Lewis; 11/24/2017 8:09:16 AM Lyrica 150 MG Oral Capsule; TAKE 1 CAPSULE TWICE DAILY; Therapy: 28Oct2016 to Recorded Rx By: Ray; Dispense: 30 Days ; #:60 CAPS; Refill: 0; ABIEL = N; Record; Last Updated By: Gabbi Lewis; 11/24/2017 8:09:16 AM Meclizine HCl - 25 MG Oral Tablet; TAKE 1 TABLET EVERY 6 HOURS NEEDED; Therapy: 03Nov2017 to Recorded Rx By: Jeet; Dispense: 10 Days ; #:40 TABS; Refill: 0; ABIEL = N; Record; Last Updated By: Gabbi Lewis; 11/24/2017 8:09:16 AM Premarin 1.25 MG Oral Tablet; TAKE 2 TABLETS BY MOUTH EVERY DAY; Therapy: 18Sep2016 to Recorded Rx By: Seals; Dispense: 30 Days ; #:60 TABS; Refill: 0; ABIEL = N; Record; Last Updated By: Gabbi Lewis; 11/24/2017 8:09:16 AM Results/Data Otoscopic examination revealed clear canals and tympanic membranes were visualized, bilaterally. Tympanometry: Right: Type A tympanogram, consistent with normal middle ear pressure, compliance, and ear canal volume. Left: Type A tympanogram, consistent with normal middle ear pressure, compliance, and ear canal volume. These test results are consistent with normal middle ear function in both ears. Acoustic Reflexes: Probe Right: Ipsilateral and contralateral acoustic reflexes were absent at 500-4000 Hz. Probe Left: Ipsilateral acoustic reflexes were present at 500-4000 Hz and contralateral were absent at 500-4000 Hz. NOTE: Ms. Wynn experienced dizziness and nausea during the tympanogram probe right and during some of her acoustic reflex testing. Speech Recognition Thresholds: Right: 60 dBHL (with 35 dBHL of masking in left ear). Left: 25 dBHL Comprehensive Audiologic Evaluation: Right: Audiologic evaluation using insert earphones revealed a mild steeply sloping to profound sensorineural hearing loss with poor (24%) word recognition. Left: Audiologic evaluation using insert earphones revealed normal hearing levels at 500-1500 Hz and a mild sensorineural hearing loss at 250, 3073-2004 Hz with excellent (100%) word recognition. 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 These test results are essentially stable with her last hearing test on October 23 with a slight improvement noted in the lower frequencies of her right ear and a slight decrease of hearing levels in her left ear. Treatment Plan: 1. Follow up with Dr. Lynne as directed. 2. Retest hearing levels after otologic management or in 3- 6 months to monitor. 3. Consider amplification (BAHA or CROS hearing aid system) to help improve hearing and communication, pending medical clearance. End of Encounter Meds AmLODIPine Besylate 5 MG Oral Tablet; TAKE 1 TABLET BY MOUTH EVERY DAY; Therapy: 79Gii0920 to Recorded DiazePAM 2 MG Oral Tablet; TAKE 1 TABLET EVERY 8 HOURS NEEDED; Therapy: 03Nov2017 to Recorded DiazePAM 5 MG Oral Tablet (Valium); TAKE 1 TABLET NEEDED; Therapy: 64Bhm7116 to (Evaluate:16Izz7676); Last Rx:[id number] Ordered IBU 800 MG Oral Tablet; TAKE 1 TABLET EVERY 8 HOURS NEEDED; Therapy: 25Jul2016 to Recorded Levothyroxine Sodium 125 MCG Oral Tablet; TAKE 1 TABLET BY MOUTH EVERY DAY; Therapy: 13Jun2016 to Recorded Lyrica 150 MG Oral Capsule; TAKE 1 CAPSULE TWICE DAILY; Therapy: 28Oct2016 to Recorded Meclizine HCl - 25 MG Oral Tablet; TAKE 1 TABLET EVERY 6 HOURS NEEDED; Therapy: 03Nov2017 to Recorded Premarin 1.25 MG Oral Tablet; TAKE 2 TABLETS BY MOUTH EVERY DAY; Therapy: 63Qfm8143 to Recorded Signatures Electronically signed by : Monty Rees; Nov 24 2017 12:25PM EST (Author) INITIAL VISIT Observed: 11/24/2017 Status: UNK Source: [facility] (OTOLARYNGOLOGY) 11:38 AM HOSPITALS REPOSITORY Chief Complaint 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 Jeet Glez. History of Present Illness 47 yo female referred by Dr. Brooks at [facility] for initial evaluation of vertigo. The patient describes her symptoms as vertigo lasting from hours to days triggered by blowing her nose associated w ith right high frequency tinnitus/ popping, aural fullness, mild right otalgia and right hearing loss. This has been happening for years, last episodes seem to be worse in intensity. She also endorses m ild headaches usually following vertiginous episodes along with nausea. Positional changes make episodes worse and improve with fixation. No hx of head trauma, LOC, ear infections, otorrhea, nasal drain age, otologic surgery autophony. Does endorse episodes can be triggered by high intensity sounds. Of note pt received a course of prednisone taper with improvement of right low frequency SNHL after her most recent episode of vertigo and hearing loss. Her audiogram on October 17 demonstrated a profound hearing loss in the right ear and subsequent audiograms demonstrated improvement in the low frequencies but no improvement in the high frequencies. Review of Systems 12 pt ROS is negative except as stated above all other systems have been reviewed and are negative for complaint. Past Medical History History of hypertension (V12.59) (Z86.79) History of sleep apnea (V13.89) (Z86.69) History of Thyroid trouble (246.9) (E07.9) Surgical History History of Hysterectomy History of Tubal Ligation Family History Family history of pancreatic cancer (V16.0) (Z80.0) Social History Cigarette smoker (305.1) (F17.210) Currently working Lives with family Occasional alcohol use Allergies lisinopril Recorded By: Gabbi Lewis; 11/24/2017 8:09:17 AM Vitals Vital Signs Recorded: [id number] 08:49AM Height5 ft 4 in Icekfn466 lb BMI Tlmgcusgzl36.2 BSA Calculated2.11 Physical Exam Constitutional General appearance: Healthy-appearing, well-nourished, well groomed, in no acute distress. Ability to communicate: Normal communication without aids, normal voice quality. Head and face: Atraumatic with no masses, lesions, or scarring. Facial strength: Normal strength and symmetry, no synkinesis or facial tic. Eyes Pupils and irises: EOM intact, PERRLA, conjunctiva non-injected. Ears Otoscopic examination: External inspection of ears: Ears normally formed and free of lesions. R EAC patent, TM clear, vertigo induced with positive insulation L EAC patent, TM clear Nose: Dorsum symmetric with no visible or palpable deformities. External inspection of nose: No nasal lesions, lacerations, or scars. Nasal tip symmetrical with normal nasal valves. Oral Cavity/Mouth Lips, teeth, and gums: Normal lips, gums, and dentition. Oropharynx: Mucosa moist, no lesions. Hard and soft palate normal. Tongue normal, no lesions or edema. Tonsils normal, no lesions. Normal posterior pharynx and hypopharynx. Normal tongue base and pyriform sinus. Neck: Symmetrical, trachea midline. No masses visible. Palpation of cervical lymph nodes: No palpable lymph node enlargement, no submandibular adenopathy, no anterior cervical adenopathy, no supraclavicular adenopathy. Neurological/Psychiatric Cranial Nerve Examination: II - XII grossly intact. Orientation to person, place, and time: Normal. Mood and affect: Normal. Skin: Normal without rashes or lesions. Pulmonary Respiratory effort: Chest expands symmetrically. Cardiovascular: Good peripheral pulses Peripheral vascular system: No varicosities, carotid pulse normal, no edema. No jugular venous distension. Extremities Appearance of extremities: Normal. Gait normal. Results/Data MRI done at OSH showing no signs of CPA CN VII/VIII lesions. -Audiogram done today shows mild sloping to profound snhl on the right ear. 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 Imaging; Due:26Bnq5423;Ordered; For: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; Ordered By:Siobhan Lynne; Radiologist to Determine Optimal Study : Y What are the patient's signs and symptoms? : eval for right superior canal dehiscence, please do direct cuts in the plane of the superior semiciircular canal (Poschel view) Provider Impressions 47 yo female presenting for evaluation of vertigo, right aural fullness, tinnitus and SNHL triggered by pressure and high intensity sound. Her symptoms can be related to a perilymphatic fistula vs SCCD. - VMPs - CT IAC for evaluation of bony anatomy - Valium PRN - RTC following images Patient Discussion/Summary Welcome to Dr. Mendez clinic. We are here to assist you through your ENT care at [facility]. Dr. Lynne is an Ear surgeon. This means that she specializes in taking care of patients with complex ear problems. Dr. Lynne's office number is [phone]. While you may see her at a satellite office, she has a team committed to help meet your healthcare needs at [facility]'s main campus. This number is t he most direct way to communicate with the office. Janeth is Dr. Mendez assistant corporate secretary and she answers the office phone from 8am-4pm Thu-Thu. She can help you with many general questions and information. Questions that she cannot answer will be directed to [facility] appropriate staff. You may need to leave a message. In this case, someone from the team will call you back. Hannah is Dr. Mendez primary nurse and can be reached by calling the office. Hannah is in clinic with Dr. Mendez on Mondays, Tuesdays, most Wednesdays, and . Non-urgent calls will be returned o n non-clinic days typically Fridays. Sometimes, other team members will also be involved in your care. These people may include dieticians, social workers, speech therapists, fire apparatus engineer, neurologist, and physical therapist. Dr. Lynne will provide these referrals as needed. Please let her know if you would like to request a specific referral. For your convenience, Dr. Lynne sees patients at several [facility] locations including [facility], [facility], and [facility] at the main [facility]. While we try to make your appointments as convenient as possible, occasionally a visit to another location may be necessary to provide the best care for you. We look forward to working with you to meet your healthcare goals. Dr. Lynne makes every effort to run on time for your appointments. Therefore, if you are more than 30 minutes late unrelated to a scan or another appointment such therapy or audio. End of Encounter Meds DiazePAM 5 MG Oral Tablet (Valium); TAKE 1 TABLET NEEDED; Therapy: 76Owz5069 to (Evaluate:15Wev0054); Last Rx:[id number] Ordered Signatures Electronically signed by : Siobhan Lynne MD; Nov 24 2017 11:38AM EST (Author) BRAIN W/WO CONTRAST Observed: 11/03/2017 Status: F Source: [facility] 4:12 PM [facility] REPOSITORY [facility] Imaging Services [facility] [place] [address] [place] [address] Brain W/WO Contrast MR#: [id number] Acct: [id number] Name: BALJIT WYNN Rep #: [id number] : 1970 F 47 From: Fernando Elias MD PCP: [facility]RI [facility] Status: REG CLI Study: Brain W/WO Contrast Date of Exam: 11/03/17 Exam# [id number] Ordering Dr: Bernabe Marcano MD STUDY: MRI BRAIN WITH AND WITHOUT CONTRAST (ATTENTION INTERNAL AUDITORY CANALS - I.A.C.'s) REASON FOR EXAM: Female, 47 years old. Vertigo and perilymphatic fistula TECHNIQUE: Standardized multiplanar fat and water weighted pulse sequences were obtained. 10 ml of Gadavist contrast material was administered intravenously for the contrast portion of the examination. COMPARISON: None. FINDINGS: Normal bilateral temporal bones. Normal bilateral internal auditory canals. There is no demonstrated intracanalicular or cisternal vestibular schwannoma (acoustic neuroma). There is no enhancement of the bilateral VIIth or VIIIth cranial nerves. Normal bilateral cochlea, vestibules and semicircular canals. Normal size of the ventricles and extra-axial spaces for the patient's age. Normal white matter tracts of the supratentorial brain. Normal bilateral basal ganglia. Normal thalami. Normal flow voids within the major intracranial circulation suggesting patency by spin echo criteria. Normal venous enhancement. There is no enhancing intra-axial or extra-axial abnormality. There is no extra-axial fluid accumulation. Partial empty sella deformity of uncertain significance. Normal, infundibular stalk, optic chiasm and hypothalamus. Normal tectal plate and pineal gland. Normal midbrain, allison and medulla. There is beaking of the cerebellar tonsils projecting into the foramen magnum consistent with Chiari I malformation. Normal basal cisterns. No demonstrated orbital abnormality, within the constraints of a routine brain study. Bilateral maxillary and ethmoid sinus disease greater on the right. Normal calvarium and skull base. Normal visualized soft tissue structures. Normal visualized upper cervical spine. MRI/Brain W/WO Contrast IMPRESSION: Normal unenhanced and enhanced MRI of the bilateral internal auditory canals (I.A.C's). No evidence for acoustic or vestibular schwannoma Incidental finding of Chiari I malformation Bilateral maxillary and ethmoid sinus disease greater on the right Electronically Signed: Fernando Elias MD at 18:10 EDT , Service support , CC: Bernabe Marcano MD; TORRI WILKERSON Invasive Manager: Signed EMERGENCY DEPARTMENT Observed: 10/16/2017 Status: F Source: [place] SUMMARY 4:33 PM [facility] REPOSITORY [facility] Medical Records Department [address] [place] [address] Emergency Department Summary 10/16/17 1607 MR#: [id number] Acct: [id number] Name: BALJIT WYNN Rep #: [id number] : 1970 47 From: Joey Dwyer MD PCP: TORRI WILKERSON Status: REG ER - ER Visit Summary Date of Service: 10/16/17 Chief Complaint: Acute right ear pain with muffled hearing and vertigo after blowing her nose 1 hour ago History of Present Illness: The patient is a 47 F who presents because of acute vertigo after blowing her nose. She states she experienced crackle pop and pain in the right ear followed by spinning sensation with nausea. She states she cannot walk straight. She denies headache. She denies double vision, blurred vision loss of vision. She has trouble with speech or swallowing. Movement of her head does exacerbate her symptoms and is specifically to the left. She denies any chest pain palpitations, orthopnea or PND. She denies shortness of breath, cough or dyspnea on exertion. She is a smoker. She does have history of labyrinthitis and vertigo. She does report URI symptoms started several days ago. She has had no documented fever. She denies chills or night sweats. She denies sore throat or, neck pain, photophobia or stiff sore neck. She denies any skin lesions. She denies history of trauma. Past medical history hypertension, labyrinthitis, vertigo, hypothyroidism, obstructive sleep apnea and BMI greater than 40. She is status post hysterectomy. Physical Examination: Blood pressure is elevated 145/91. Head is atraumatic normocephalic. Pupils are equal round reactive. Extraocular muscles are intact. TMs are pearly white with landmarks noted. There is dullness with fluid noted behind the right TM. Nares patent with no drainage. Posterior pharynx without erythema or exudate. Uvula is midline. There is no dysphonia or dysphasia. Trachea is midline. There is no stridor with auscultation of the neck. Heart is regular without murmur, gallop or rub. S1 and S2 are normal. Lungs are clear to auscultation with good movement of air bilaterally. Abdomen is soft nontender. Patient is alert and oriented 3. Motor is 5 over 5. Sensory is intact. DTRs are symmetric with no clonus or Babinski sign. Cranial 2 through 12 are intact. Cerebellar testing is normal. Gait was observed and she shuffles her feet. Romberg test with eyes open and closed is negative. She is able to walk on her heels and toes without staggering. [place]-Hallpike maneuver was performed and she complained of mild nausea no other symptoms. There was no nystagmus. Eye askew test was negative. Hint test was negative. Test Results: Patient reports slight improvement after treatment. No lab tests were obtained. Emergency Department Course and Treatment: Since there is a national shortage of IV Valium she was treated with IV Ativan and will be reassessed. Treatment Plan: Discharged home with prescription for 2 mg Valium tablets to be taken 3 times a day and Flonase spray Disposition: Discharged to home Impression: 1. Serous otitis right ear 2. Positional vertigo This note was generated with [employer] dictation software. It may contain incorrect words, spelling, and punctuation that were not noted in review of the chart prior to signing ED Disposition - Plan for ED Patient: Disposition: Home or Assisted Living Chief Complaint: Ear Problem Instructions: ED Otitis Media Serous Adult, ED Vertigo Unspecified Prescriptions: Fluticasone 0.05% [Flonase Nasal [place]] 1 spray NASAL BID #1 bottle Diazepam [Valium] 4 mg PO TID #10 tablet Referrals: [facility] Torri Wilkerson [Primary Care Provider] - 1 Week if not improving What to do if you have Problems For any increased pain, shortness of breath, bleeding, nausea or vomiting, chest pain, or any unexpected problems, contact your Primary Care Provider. Call [facility] ([phone]) or report to the closest Emergency Room. Call 911 if necessary. 10/16/17 1633 <Electronically signed by Joey Dwyer MD> Date Joey Dwyer MD Cosigner Signature (If Indicated): Date CC: [facility] PULMONARY VISIT REPORT Observed: 10/16/2017 Status: F Source: [place] 9:19 AM [facility] REPOSITORY Pulmonary Medicine of [address] [place] [address] OFFICE VISIT Date of Service: 10/14/17 MR#: [id number] Acct: [id number] Name: BALJIT WYNN Rep #: [id number] : 1970 Provider: Hallie Tracy Age/Sex: 47/F Location: [facility] Status: Signed Assessment AND Plan 1. ANNETTE (obstructive sleep apnea) G47.33 Status Acute Plan Lengthy discussion about the pathophysiology of obstructive sleep apnea and its relationship to obesity. We discussed the risks of untreated sleep apnea and the benefits of treating it. The patient did become tearful stating that she is frustrated because she is exhausted all the time. A titration study has been ordered. Also discussed with patient that the initial plan will be that she wear the device at least 4 hours nightly, and ultimately she will wear the device any time spent sleeping. She has been encouraged to contact the office if she has any difficulties acclimating to CPAP therapy. She conveys understanding. Follow-up with Dr. Rollins in 3 months, at which time I anticipate she will be on Pap therapy for 4-6 weeks. Orders Orders: 2. BMI 40.0-44.9, adult Z68.41 Status Acute Plan Discussed the relationship between obesity and obstructive sleep apnea. He also has been encouraged. I did instruct the patient that as she begins to feel rested with compliance regarding her sleep apnea she will then feel as though she has more energy and began to move naturally. If she includes dietary restrictions with a moderate exercise regimen (simply walking) weight loss should occur. Follow-up with Dr. Rollins in 3 months. 3. Illicit drug use, continuous F19.90 Status Acute Plan Self-admitted crack cocaine and marijuana use weekly. Illicit drug use complicates exam, plan, care and prognosis. Encouraged sobriety. Plan Detail Follow Up 3 Months (MATHEWA) HPI HPI Comments Details: his patient presents the office today for initial consultation regarding concern for sleep apnea. She has been referred by her skein yarn dyer. She is ambulatory and currently on room air. Currently she is experiencing persistent daytime hypersomnia. In fact, she was nearly asleep when I entered the exam room today. She denies any napping or falling asleep while watching TV but reports that she feels tired when she awakens in the morning. She does not feel rested no matter how much sleep she is able to get. Per her own words she is exhausted all the time. She is having dry mouth in the morning, as well as frequent headaches. She has been noted to snore by her significant other. She has approximately 1-3 episodes of nocturia nightly. Today she is not feeling well, she literally was just discharged from the emergency department where she was evaluated for cold like symptoms. She has nasal congestion, sinus pain, white nasal drainage, and occasional dry cough and sore throat. She was encouraged to use Mucinex and was placed on a steroid burst. She is a smoker of one half pack per day 20 years. She denies ever being higher than half a pack per day. She does admit to crack cocaine and marijuana use weekly. She has never been seen by lease administrator. She has never had pulmonary function test done. She has never been diagnosed with asthma or COPD. She has never been prescribed an inhaler. She denies any feeling members with COPD. Complete polysomnogram from September 30, 2017 shows that the patient has an overall AHI of 18.2 events per hour, it is noted that during the REM stage of sleep the AHI is elevated up to 34.9 events per hour. Impression is moderate obstructive sleep apnea that becomes severe in the REM stage of sleep. A CPAP titration study is recommended. Echocardiogram completed on October 02, 2017 shows an EF of 65%, normal diastole for age and unfortunately was unable to estimate RV pressures. 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 Accompanied by: Self Allergies codeine Allergy (Verified 10/14/17 09:15) Unknown lisinopril Allergy (Verified 10/14/17 09:15) Unknown Medications Estrogens, Conjugated [Premarin] 1.25 mg PO DAILY 04/23/14 [History Confirmed 10/14/17] amlodipine 10 mg tablet 10 mg PO QDAY 09/08/17 [History Confirmed 10/14/17] levothyroxine 100 mcg capsule 100 mcg PO QDAY 09/08/17 [History Confirmed 10/14/17] Aspirin [Adult Aspirin Regimen] 81 mg PO DAILY 09/23/17 [History Confirmed 10/14/17] Pregabalin [Lyrica] 150 mg PO BID 09/23/17 [History Confirmed 10/14/17] Guaifenesin/Pseudoephedrne HCl [Mucinex D ER 1,200-120 mg Tab] 1 ea PO BID #14 tab.er.12h 10/14/17 [Rx Confirmed 10/14/17] PFSH Medical History Hypertension (Chronic) Hypothyroidism (acquired) (Acute) Abnormal EKG (Chronic) ADHD (attention deficit hyperactivity disorder) (Chronic) Labyrinthitis (Chronic) Vertigo (Chronic) Surgical History History of appendectomy (Chronic) History of hysterectomy (Chronic) History of tubal ligation (Chronic) Family History Sister , of [place] CAD (coronary artery disease) Myocardial infarction Sudden cardiac Father Pancreatic cancer Social History Smoking Status: Current every day smoker alcohol intake: current alcohol intake frequency: holidays/special occasions only substance use type: marijuana, crack/cocaine Review of Systems Const CONSTITUTIONAL: Positive fatigue; negative anorexia, body ache, chills, daytime sleepiness, fever(s), night sweats, oral thrush, stops breathing during sleep, weight loss, sleeping in chair, weight loss, weight gain, frequent colds, seasonal allergies, other, headache(s) or orthopnea EETM Ear Nose Throat Mouth: Positive hearing normal, nasal congestion, nasal discharge, sinus pain and sore throat; negative hard of hearing, hoarseness, dry mouth in morning, change in vision, itchy eyes, eye pain, swallowing Difficulty, ear pain, nose bleed, headache(s), mouth pain, post nasal drip, sinus pressure or other Cardio Cardiovascular: Negative chest pain, chest pain at rest, chest pain with activity, irregular heart rhythm, edema, shortness of breath when lying down, palpitations, murmur or other Resp Respiratory: Positive as per HPI and cough cough: Positive non-productive; negative shortness of breath, pain with cough, wheezing, chest congestion, chest tightness, pain on inspiration, inhalers, increase use of rescue inhalers, snoring, apnea or other Gastro Gastrointestional: Negative bloody stools, change in appetite, difficulty swallowing, reflux, hematemesis, melena stool, loose stool, constipation or other Genitourinary: Negative blood in urine, nocturia, pain with urination or other Musc Musculoskeletal: Negative body pain, back pain, neck pain or other Skin/Breast Skin/Breast: Negative dry skin, itching, rash, unusual bruising, breast lump or other Neuro Neurological: Negative restless legs, confusion, weakness or other Psych Psychocological: Negative abnormal sleep pattern, anxiety, thoughts of hurting self/others, hopelessness or other Lymph Lymphatic: Negative easy bleeding, easy bruising, swollen lymph nodes or other Exam Const Constitutional: Positive conversant, cooperative, in no acute respiratory distress, well developed, well nourished, good hygiene, obese and ill appearing Head Head: Positive normocephalic and atraumatic; negative cyanosis of lips/distal nose Eyes Eye: Positive clear conjunctiva and nystagmus; negative scleral abnormality Ears Ear: Positive hearing normal and external ears normal; negative hard of hearing Nose Nose: Positive external nose normal and no nasal discharge; negative epistaxis Mouth Mouth: Positive oral mucosae normal, no lesions and crowded posterior oropharynx; negative post nasal drip, malodorous breath or oral thrush present Mallampati Score: IV: Mallampati Score Neck Neck: Positive normal visual inspection, full ROM, trachea midline, thick neck and female neck greater than 37 cm (15 in); negative lymphadenopathy, JVD or tender Chest Wall Chest: Positive normal inspection of the chest and symmetric chest movement; negative increased A/P diameter Resp lung sounds: Positive clear to auscultation, good air exchange, normal expiratory time and normal respiratory effort; negative diminished, wheezes, rhonchi, rales, dullness to percussion or wheeze present on forced exhalation Cardio Cardiac: Positive regular rate, regular rhythm, S1 normal and S2 normal; negative murmur GI GI: Positive normal to inspection, normal bowel sounds and obese; negative distended Genitourinary: Positive deferred Musc Musculoskeletal: Positive steady gait and ROM normal; negative kyphosis or scoliosis Skin Pulmonary Skin Exam: Positive intact; negative rash, lesion, ulcers, erythema, scaly or dermal atrophy Pulses Pulse: Yes pulses normal x4 extremities Extremities Extremities: Yes capillary refill normal, No clubbing, No cyanosis, No edema Neuro Neurologic: Yes conversant, Yes no focal neuro deficits, Yes cooperative, Yes normal cognition, Yes normal coordination, Yes normal concentration, Yes understands questions Lymph Lymphatic: No lymphadenopathy, No tenderness, No cervical adenopathy, No axillary adenopathy Psych Appearance: Positive grossly normal, eye contact and well kempt Mental Status: Positive mental status grossly normal Mood: Positive congruent mood Affect: Positive normal affect Coding Level of Care Code Off vis,new,level 4 Diagnoses ANNETTE (obstructive sleep apnea) G47.33 BMI 40.0-44.9, adult Z68.41 Illicit drug use, continuous F19.90 10/16/17 0919 <Electronically signed by Hallie BULL> Date Hallie BULL Cosigner Signature: Date (if applicable) CC: TORRI [facility] EMERGENCY DEPARTMENT Observed: 10/14/2017 Status: F Source: [place] SUMMARY 4:53 PM [facility] REPOSITORY [facility] Medical Records Department [address] [place] [address] Emergency Department Summary 10/14/17 0750 MR#: [id number] Acct: [id number] Name: BALJIT WYNN Rep #: [id number] : 1970 47 From: Velia Hay MD PCP: TORRI WILKERSON Status: DEP ER - ER Visit Summary Date of Service: 10/14/17 Chief Complaint: Sore throat History of Present Illness: The patient is a 47 F presenting with sore throat since yesterday. Patient states she has a history of tonsillitis 1-2 times per year and this feels similar. She has painful swallowing but no difficulty swallowing. She tried ibuprofen at home. She has no sick contacts. She denies fever. She also complains of nasal congestion. Denies other complaints. Physical Examination: Vitals are stable. Patient is afebrile. Alert no acute distress. HEENT exam pharyngeal erythema with no exudate. Uvula is midline Neck is supple. Lungs are clear and equal bilaterally. Heart is regular rate and rhythm. Abdomen is soft nontender nondistended. Extremities are unremarkable. Skin is warm and dry. No focal neurologic deficit. Remainder of exam is unremarkable. Emergency Department Course and Treatment: She was given Decadron p.o. Rapid strep is negative. She is able to tolerate p.o. She is advised to follow-up with her primary care physician. Advised return to ED for worsening complaints. Disposition: Discharge home Impression: Pharyngitis This note was generated with [employer] dictation software. It may contain incorrect words, spelling, and punctuation that were not noted in review of the chart prior to signing ED Disposition - Plan for ED Patient: Disposition: Home or Assisted Living Chief Complaint: Sore Throat Instructions: ED Pharyngitis Viral Prescriptions: Guaifenesin/Pseudoephedrne HCl [Mucinex D ER 1,200-120 mg Tab] 1 ea PO BID #14 tab.er.12h Referrals: Torri Duncan [Primary Care Provider] - What to do if you have Problems For any increased pain, shortness of breath, bleeding, nausea or vomiting, chest pain, or any unexpected problems, contact your Primary Care Provider. Call [facility] ([phone]) or report to the closest Emergency Room. Call 911 if necessary. 10/14/17 1653 <Electronically signed by Velia Hay MD> Date Velia Hay MD Cosigner Signature (If Indicated): Date CC: TORRI [facility] DISCHARGE INSTRUCTION Observed: 10/14/2017 Status: F Source: [place] 8:52 AM [facility] REPOSITORY [facility] Medical Records Department [address] [place] [address] Discharge Instruction 10/14/17 0850 MR#: [id number] Acct: [id number] Name: MAXIBALJIT Adam Rep #: [id number] : 1970 47 From: Velia Hay MD PCP: TORRI JEAN [facility] Status: REG ER ED Disposition - Plan for ED Patient: Chief Complaint: Sore Throat Instructions: ED Pharyngitis Viral Prescriptions: Guaifenesin/Pseudoephedrne HCl [Mucinex D ER 1,200-120 mg Tab] 1 each PO BID #14 tab.er.12h Referrals: [facility],Torri Jean Baptiste [Primary Care Provider] - What to do if you have Problems For any increased pain, shortness of breath, bleeding, nausea or vomiting, chest pain, or any unexpected problems, contact your Primary Care Provider. Call [facility] ([phone]) or report to the closest Emergency Room. Call 911 if necessary. 10/14/17 3652 <Electronically signed by Velia Hay MD> Date Velia Hay MD Cosigner Signature (If Indicated): Date CC: [facility] Observed: 10/14/2017 Status: F Source: [place] STREP A (THROAT 8:25 AM [facility] RAPID [place]) REPOSITORY Order Date: 10/14/17 Has pt arrived? Y Strep A Rapid Rapid Strep A Screen NEGATIVE A Disk (Conf. Cult) Negative for Strep Group A : All NEGATIVE screens will be confirmed with a culture. Performed By: #### M100.676 #### [facility] [address] [facility] [place], [address] ECHOCARDIOGRAM COMPLETE Observed: 10/06/2017 Status: F Source: [place] 4:56 PM [facility] REPOSITORY [facility] Cardiovascular Services [address] [place] [address] Echo Complete W/ Contrast 10/02/17 1408 MR#: [id number] Acct: [id number] Name: BALJIT WYNN Rep #: [id number] : 1970 47 From: Fransisco Dickerson MD Attending Dr: Fransisco Dickerson MD Status: REG CLI Ordering Dr: Fransisco Dickerson MD Date: 10/02/17 Location: [facility] Sex: F AA Admitted: Reason For Study: Chest Pain Procedure This was a 2D Doppler, Color Flow transthoracic echocardiogram. Exam performed in department. Left Ventricle Normal size and thickness. The estimated ejection fraction is 65 %. Normal diastology for age. No regional wall motion abnormalities noted. Right Ventricle Normal size and thickness. Normal systolic function. Atria Normal left atrium. Normal right atrium. Normal atrial septum. Mitral Valve The mitral valve is structurally normal. No prolapse or stenosis seen. Trivial mitral valve insufficiency. Tricuspid Valve Normal tricuspid valve. Trivial tricuspid valve insufficiency. Unable to estimate RV systolic pressure/pulmonary artery pressure due to technically difficult study. Aortic Valve Normal aortic valve. Trisinus/trileaflet aortic valve. Pulmonic Valve Normal pulmonic valve. Great Vessels Normal aortic root. Normal arch. Normal inferior vena cava. Inferior vena cava collapse with sniff. Pericardium/Pleural No pericardial effusion. Medication 22 gauge I.V. with prn adaptor inserted into right arm. Diluted definity 2ml given slow IV push to enhance endocardial definition. MMode/2D Measurements AND Calculations LVIDd: 4.5 cm IVSd: 1.0 cm LA dimension: 3.9 cm LVIDs: 2.7 cm LVPWd: 0.94 cm RVDd: 3.5 cm FS: 39.5 % LAV(MOD-bp): 47.2 ml LA A4 area: 18.0 cm2 RA A4 area: 14.5 cm2 LAV(MOD-bp) Indexed: 22.4 ml/m2 LAV(MOD-sp2): 44.5 ml LAV(MOD-sp4): 47.6 ml Time Measurements MV dec time: 0.28 sec Doppler Measurements AND Calculations MV E max esther: 81.8 cm/sec Lat Peak E' Esther: 10.5 cm/sec Med Peak E' Esther: 8.7 cm/sec MV A max esther: 97.0 cm/sec E/E' lat: 7.8 E/E' med: 9.4 MV E/A: 0.84 MV V2 max: 109.8 cm/sec MV P1/2t max esther: 96.3 cm/sec Ao V2 max: 177.6 cm/sec MV max P.8 mmHg MV P1/2t: 109.9 msec Ao max P.6 mmHg MV V2 mean: 62.9 cm/sec MV dec slope: 256.6 cm/sec2 Ao V2 mean: 114.9 cm/sec MV mean P.8 mmHg MVA(P1/2t): 2.0 cm2 Ao mean P.0 mmHg MV V2 VTI: 32.3 cm Ao V2 VTI: 35.1 cm LV V1 max: 129.6 cm/sec LV V1 max P.7 mmHg LV V1 mean P.8 mmHg LV V1 mean: 75.4 cm/sec LV V1 VTI: 26.2 cm Interpretation Summary The estimated ejection fraction is 65 %. Normal diastology for age. Trivial mitral valve insufficiency. Trivial tricuspid valve insufficiency. Unable to estimate RV systolic pressure/pulmonary artery pressure due to technically difficult study. The study was technically difficult. There is no comparison study available. Contrast injection was performed. Ordering Physician: Fransisco Dickerson Referring Physician: Fransisco Dickerson Performed By: Gabriel Rios RCS 10/06/171654 Date Fransisco Dickerson MD CC: Fransisco Dickerson MD; [facility] Date Dictated: 10/02/17 1408 Date Transcribed: 10/06/171654 Invasive Manager: Signed 12 LEAD ELECTROCARDIOGRAM Observed: 09/25/2017 Status: F Source: [place] 2:13 PM [facility] REPOSITORY [facility] Cardiovascular Services [address] [place] [address] 12 Lead EKG 09/23/17 1808 MR#: [id number] Acct: [id number] Name: BALJIT WYNN Rep #: [id number] : 1970 47 From: Vishal Strauss MD Attending Dr: Status: DEP ER Ordering Dr: Fernando Baker MD Date: 09/23/17 Location: ED Sex: F AA Admitted: Test Reason : CHEST PAIN Blood Pressure : / mmHG Vent. Rate : 075 BPM Atrial Rate : 075 BPM P-R Int : 182 ms QRS Dur : 078 ms QT Int : 406 ms P-R-T Axes : 046 -01 057 degrees QTc Int : 453 ms Normal sinus rhythm Normal ECG Confirmed by VISHAL STRAUSS MD ([id number]), fan mail editor LUCI COLÓN ([id number]) on 09/25/2017 2:12:40 PM Referred By: ANGELIA Confirmed By:VISHAL STRAUSS MD 09/25/17 1412 Date Vishal Strauss MD CC: Fernando Baker MD; TORRI WILKERSON Signed EMERGENCY DEPARTMENT Observed: 09/23/2017 Status: F Source: [place] SUMMARY 11:55 PM [facility] REPOSITORY [facility] Medical Records Department [address] [place] [address] Emergency Department Summary 09/23/17 193 MR#: [id number] Acct: [id number] Name: BALJIT WYNN Rep #: [id number] : 1970 47 From: Fernando Baker MD PCP: TORRI WILKERSON Status: DEP ER - ER Visit Summary Date of Service: 09/23/17 Chief Complaint: Chest pain History of Present Illness: The patient is a 47 F past medical history of hypertension and hypothyroidism. Patient's had no cardiac history and denies any family history of cardiac disease. 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 Has not upcoming echocardiogram. She has been having intermittent nonexertional chest pain for weeks. Denies any history of DVT or PE. She has never had a cardiac catheterization had a negative stress test she believes around 10 years ago. He does smoke tobacco about half a pack a day. Denies any family history of cardiac disease. No recent travel, surgery or mobilization. No calf pain or swelling. No hemoptysis. She states she walks without any difficulty. Physical Examination: Appearing middle-aged female. Vital signs are stable afebrile. Pulse ox 90% room air no signs of hypoxia. HEENT exam unremarkable. Neck nontender no JVD. No lymphadenopathy. Lungs clear to auscultation bilaterally. Chest wall no reproducible chest wall pain. Heart regular rate and rhythm no murmur rate about 70. Abdomen soft nontender. Normal bowel sounds no peritoneal signs. She is moving all 4 extremities. Calves are nontender without edema or cords. She has equal symmetrical radial pulses. Neurologically she is awake alert with no focal deficits. Back exam nontender. Test Results: CBC normal. BMP normal. Troponin normal. EKG sinus rhythm rate is 75 with no acute abnormalities. Chest x-ray no acute abnormalities. Normal cardiac silhouette read both by myself the radiologist. Emergency Department Course and Treatment: She is doing well on repeat exam. Given she has no family history and clinically and historically this really does not sound like cardiac chest pain and cover with her being discharged home and follow-up with Dr. Dickerson for her outpatient workup. Treatment Plan: Discharge follow-up with Dr. Dickerson. Disposition: discharge Impression: Acute atypical chest pain of uncertain etiology This note was generated with [employer] dictation software. It may contain incorrect words, spelling, and punctuation that were not noted in review of the chart prior to signing ED Disposition - Plan for ED Patient: Chief Complaint: Chest Pain Referrals: Kerline Wilkerson,Torri Jean Baptiste [Primary Care Provider] - What to do if you have Problems For any increased pain, shortness of breath, bleeding, nausea or vomiting, chest pain, or any unexpected problems, contact your Primary Care Provider. Call [facility] ([phone]) or report to the closest Emergency Room. Call 911 if necessary. 09/23/17 3953 <Electronically signed by Fernando Baker MD> Date Fernando Baker MD Cosigner Signature (If Indicated): Date CC: [facility]ORRI [facility] DISCHARGE INSTRUCTION Observed: 09/23/2017 Status: F Source: [place] 11:55 PM [facility] REPOSITORY [facility] Medical Records Department [address] [place] [address] Discharge Instruction 09/23/17 1935 MR#: [id number] Acct: [id number] Name: BALJIT WYNN Rep #: [id number] : 1970 47 From: Fernando Baker MD PCP: TORRI WILKERSON Status: DEP ER ED Disposition - Plan for ED Patient: Disposition: Home or Assisted Living Chief Complaint: Chest Pain Instructions: ED Chest Pain Atypical Unkn Cause Referrals: Fransisco Dickerson MD [STAFF PHYSICIAN] - As soon as possible Additional Instructions: On follow-up with Dr. Dickerson and he may want to get outpatient stress testing for your chest pain. All your tests were negative today. Return to the ER if you are feeling worse. What to do if you have Problems For any increased pain, shortness of breath, bleeding, nausea or vomiting, chest pain, or any unexpected problems, contact your Primary Care Provider. Call [facility] ([phone]) or report to the closest Emergency Room. Call 911 if necessary. 09/23/17 0734 <Electronically signed by Fernando Baker MD> Date Fernando Baker MD Cosigner Signature (If Indicated): Date CC: TORRI [facility] CBC W/DIFF, AUTOMATED Collected: 09/23/2017 Status: F Source: [place] 6:15 PM [facility] REPOSITORY TYPE CODE TESTS RESULT OUT OF RANGE REFERENCE UNITS LAB L100.1000 4.4-11.0 K/mm3 Normal WBC 9.8 LAB L100.1200 4.2-5.4 M/mm3 Normal RBC 4.77 LAB L100.1300 12.0-15.0 g/dl Normal HGB 13.4 LAB L100.1400 37-47 % Normal HCT 40.6 LAB L100.1500 81-99 fL Normal MCV 85.1 LAB L100.1600 27.0-32.0 pg Normal MCH 28.1 LAB L100.1700 32-36 g/gl Normal MCHC 33.0 LAB L100.1810 11.6-14.6 % Normal RDW CV 12.5 LAB L100.1820 35.1-43.9 fl Normal RDW SD 38.3 LAB L100.1900 150-450 K/mm3 Normal PLT 289 LAB L100.2000 6.2-12.0 fl Normal MPV 10.9 LAB L100.2100 47-70 % Low NEUT% 37.5 LAB L100.2200 19-41 % High LY% 52.0 LAB L100.2300 0-10 % Normal MONO% 7.1 LAB L100.2400 0-5 % Normal EO% 2.7 LAB L100.2500 0-1 % Normal BASO% 0.6 LAB L100.2550 0.0-0.9 % Normal IM GRAN % 0.100 Result Comment: IG% - Immature Granulocytes (promyelocytes, myelocytes and metamyelocytes) > 1% indicates that a LEFT SHIFT is Present. LAB L100.2620 2.0-7.7 X10 3/uL Normal Absolute Neut 3.7 LAB L100.2720 0.83-4.51 X10 3/ul High Absolute Lymph 5.11 LAB L100.4500 Normal SMEAR COMMENT SCANNED Result Comment: LYMPHOCYTOSIS NOTED Performed By: #### L100.0100 #### [facility] [address] [place], [place], [address] BASIC METABOLIC Collected: 09/23/2017 Status: F Source: [place] PROFILE ([facility]) 6:15 PM [facility] REPOSITORY TYPE CODE TESTS RESULT OUT OF RANGE REFERENCE UNITS LAB L501.0100 74-106 mg/dL High GLU 108 Result Comment: Fasting Glucose result from 100 to 125 mg/dL suggests IMPAIRED HOMEOSTASIS per A.D.A. criteria. Please note revised GLUCOSE reference range effective 2017. LAB L501.1000 7-18 mg/dL Normal BUN 14 LAB L501.1100 0.55-1.02 mg/dL High CREAT,SERUM 1.52 Result Comment: The validity of the calculated GFR AND GFRAA in patients over 70 years has not been determined. Clinical correlation is essential. LAB L501.1110 >60 mL/min Low EST GFR 39 Result Comment: Non- GFR Calc LAB L501.1115 >60 mL/min Low EST GFR - AA 47 Result Comment: GFR Calc LAB L501.1255 ml/min Normal Estimated CRCL 40.36 LAB L501.1300 10-20 RATIO Low BUN/CRE 9.2 LAB L501.2200 8.5-10 mg/dL Normal .1 CA 9.3 LAB L501.5300 136-14 mmol/L Normal 5 NA 139 LAB L501.5600 3.5-5. mmol/L Normal 1 K 3.8 LAB L501.5900 98-107 mmol/L Normal CL 104 LAB L501.6100 21.0-3 mmol/L Normal 2.0 CO2 27.0 LAB L501.6200 5-15 Normal GAP 8 Performed By: #### L500.2500, L501.4010 #### [facility] [address] [facility] [place], [place], [id number] TROPONIN-I Collected: 09/23/2017 Status: F Source: [place] 6:15 PM [facility] REPOSITORY TYPE CODE TESTS RESULT OUT OF RANGE REFERENCE UNITS LAB L501.4010 <0.045 ng/mL Normal < 0.015 TROPONIN-I Result Comment: TROPONIN-I EXPECTED VALUES <0.045 NEGATIVE 0.045 - 0.590 AT RISK OF SC > OR = 0.600 SUGGEST SC Not every elevated troponin is indicative of SC. These values should be used with clinical judgement in examining the patient's clinical picture for diagnosis. To establish a diagnosis of SC versus myocardial injury, there must be a demonstrated rise and/or fall in the troponin values, in addition to ischemic symptoms, EKG changes, new regional wall motion abnormality, and/or angiographical evidence. PLEASE NOTE: REFERENCE RANGES EDITED 17 Performed By: #### L500.2500, L501.4010 #### [facility] [address] [place], [place], [address] CHEST 1 VIEW Observed: 09/23/2017 Status: F Source: [place] (PORTABLE) 6:12 PM [facility] REPOSITORY [facility] Imaging Services [address] [place] [address] Chest 1 View (Portable) MR#: [id number] Acct: [id number] Name: BALJIT WYNN Rep #: [id number] : 1970 F 47 From: Minesh Bryant MD PCP: TORRI JEAN [facility] Status: REG ER Study: Chest 1 View (Portable) Date of Exam: 09/23/17 Exam# [id number] Ordering Dr: Fernando Baker MD STUDY: X-RAY CHEST REASON FOR EXAM: Female, 47 years old. Chest pain TECHNIQUE: Frontal view of the chest COMPARISON: 08/10/2017 FINDINGS: The lungs are clear. There are no pleural effusions. There is no pneumothorax. The heart is normal in size. The visualized osseous structures are within normal limits. RAD/Chest 1 View (Portable) IMPRESSION: No acute thoracic pathology. Electronically Signed: Minesh Bryant, at 18:39 EDT Tel , Service support , CC: Fernando Baker MD; TORRI BEARANDI [facility] Invasive Manager: Signed CARDIOLOGY VISIT Observed: 09/08/2017 Status: F Source: [place] REPORT 1:57 PM [facility] REPOSITORY [facility] [address] [place] [address] OFFICE VISIT Date of Service: 09/08/17 MR#: [id number] Acct: [id number] Name: BALJIT WYNN Rep #: [id number] : 1970 Provider: Fransisco Dickerson MD Age/Sex: 47/F Location: [facility] Status: Signed HPI HPI Chief Complaint: abnl ekg Details: BALJIT WYNN, is a 47 nondiabetic, morbidly obese, admitted crack cocaine addict for the last 10 years, consumes a by smoking it, no intravenous drug use. She admits to using crack 1-2 times per week, and her partner also uses as well. At most the patient has been off of crack for total of 4 years in a row but then recurred. He now presents to the office today for evaluation of abnormal EKG. the patient admitted that several months ago, prior to her EKG, she developed severe left arm pain with associated substernal chest pressure, while she was using crack cocaine. Her symptoms abated, but ever since then she has had increasing fatigue, tiredness, dyspnea on exertion and shortness of breath. It is gotten so bad, that she took off work for the last 3 days because she has been so tired. On 08/10/17 the patient had an EKG in her PCPs office which showed sinus bradycardia minimal voltage for LVH, possible old inferior wall myocardial infarction. Upon my review however does not appear that the patient's had previous inferior wall SC by EKG. The patient also admits to smoking about less than one half a pack of cigarettes for the past 20 years. She has never had a heart catheterization. She reports that her sister after appears to be a valvular infection requiring valvular replacement due to IV drug use. In addition she admits to severe snoring, daytime somnolence, and wakes up exhausted. 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 On further history she states that she has dyspnea on exertion after walking 2 blocks, and has occasional left upper chest discomfort without a pleuritic component, no flulike illnesses but does have a cough. She has never had an echocardiogram. She reports she had a stress test about 10 years ago which was reportedly negative per the patient. In addition she is status post hysterectomy in 2014 with associated oophorectomy. She has been on Premarin ever since. In our office today her blood pressure is 110/64, and pulse is 60 and regular. Physical exam demonstrates morbid obesity, regular rate and rhythm, normal S1/S2, no S3 or S4. She has no edema. Lipids are pending. EKG dated 08/10/17 shows normal sinus rhythm/sinus bradycardia with inferior R waves, I do not believe she has had an inferior SC based upon this EKG, she has good R-wave progression across the precordium, and normal intervals. Intake Vital Signs09/08/17 Height 5 ft 4 in 09/08/17 Weight: 240 lb 09/08/17 Body Mass Index (BMI) 41.1 09/08/17 Blood Pressure 110/64 Intake Visit Reasons: ABN EKG (FREE CLINIC) Is patient in pain?: No Allergies codeine Allergy (Verified 09/08/17 13:30) Unknown lisinopril Allergy (Verified 09/08/17 13:30) Unknown Medications Estrogens, Conjugated [Premarin] 1.25 mg PO DAILY 04/23/14 [History Confirmed 05/19/15] amlodipine 10 mg tablet 10 mg PO QDAY 09/08/17 [History Confirmed 09/08/17] levothyroxine 100 mcg capsule 100 mcg PO QDAY 09/08/17 [History Confirmed 09/08/17] [facility] Medical History Hypertension (Chronic) Hypothyroidism (acquired) (Acute) Abnormal EKG (Chronic) ADHD (attention deficit hyperactivity disorder) (Chronic) Labyrinthitis (Chronic) Vertigo (Chronic) Surgical History History of appendectomy (Chronic) History of hysterectomy (Chronic) History of tubal ligation (Chronic) Family History Sister , of SC CAD (coronary artery disease) Myocardial infarction Sudden cardiac Father Pancreatic cancer Social History Smoking Status: Current every day smoker ROS Const Const: Positive for fatigue and other (2 mo ago left arm tight, now cp and sob, fatigue); negative for weakness, body ache, fever(s), headache(s), chills, frequent falls, night sweats, daytime sleepiness, difficulty sleeping, excessive sweating, weight gain, weight loss, increased appetite, poor appetite or anorexia Eyes Eyes: Negative for blind spots, loss of peripheral vision, transient loss of vision, blurry vision, change in vision, double vision, floaters, tunnel vision or other ENT ENT: Negative for headache(s), dizziness, hearing loss, tinnitus, Nosebleed/epistaxis, balance problems, post nasal drip, lip swelling, tongue swelling, bleeding gums, hoarseness, neck pain, dry mouth or other Cardio Chest Pain: Yes (almost constantly last 2 weeks) Character: other (pressure when lifting arms) Location: other (upper mid chest) Duration: continuous Exacerbation: eating (drinking coffee or cigarettes), activity (strenuous) Palpitations: Yes feels like its: fast Edema: None Muscle aches with walking: Left (Left leg has felt weird) Resp Respiratory: Positive for SOB with activity (More in last couple weeks) and Cough (productive); negative for SOB at rest, SOB orthopnea\SOB lying down, Coughing up blood/hemoptysis, chest congestion, pain on inspiration, snoring, stridor, wheezing, crackles, paroxysmal nocturnal dyspnea or other GI GI: Negative nausea, vomiting, heartburn, constipation, belching, bloating, cramping, vomiting blood/hematemesis, bright, red blood in stools, black,tarry stools, loose stools, Difficulty Swallowing or other : Negative for hematuria, frequent nighttime urination/ nocturia, erectile dysfunction or abnormal vaginal bleeding Musc Musc: Negative for balance problems, muscle aches/ myalgia, muscle weakness or joint pain Skin Skin: Negative redness, non-healing lesions, rash, unusual bruising, skin ulcer, wounds, jaundice or other Neuro Neuro: Negative for weakness, headache(s), frequent falls, blurry vision, double vision, dizziness, lightheadedness, near syncope, syncope, orthostatic symptoms, confusion, memory loss, restless legs, vertigo, seizures, lack of coordination or other Suresh Hematologic/Lymphatic: Negative for easy bleeding, easy bruising, enlarged lymph nodes or other Endo Endo: Positive for fatigue; negative for excessive sweating, cold intolerance, heat intolerance, flushing, increased thirst/drinking, increased hunger, hair loss, hair growth or other Psych Psych: Negative for anxiety, depression, thoughts of harming anyone, thoughts of harming yourself, visual hallucinations, panic attacks or audible hallucinations Allergy Allergy/Immunology: Negative for lip swelling, Negative for tongue swelling, Negative for rash, Negative for throat swelling, Negative for hives Cardiology Exam Const Appearance: cooperative, healthy appearing and no acute distress Nutritional Appearance: well nourished Orientation: alert, oriented x3 and oriented to person Head Head: normal to inspection, atraumatic and normocephalic Nose: external nose normal Face and Sinus: face symmetric Mouth: oral mucosae normal Eyes General: appearance normal, both eyes and all related structures Eyelids: eyelids normal Conjunctivae: conjunctivae normal Pupils: PERRL and normal by confrontation EOM: EOM intact bilaterally Neck Neck: normal visual inspection and full ROM Carotids: normal carotid upstroke Chest Chest inspection: normal inspection of the chest Auscultation: Bilateral: Clear to Auscultation Cardio Palpation: normal PMI Rate: regular rate Rhythm: regular rhythm Heart sounds: S1 normal and S2 normal GI GI: normal to inspection, no hepatosplenomegaly and bowel sounds present Neuro General: alert, oriented x3, awake, CN's II-XI intact bilaterally and moves all extremities Skin Skin: no rashes or lesions noted Extremities Pulses: Normal: Right Femoral Pulse, Left Femoral Pulse, Right Dorsalis Pedis Pulse, Left Dorsalis Pedis Pulse, Right Posterior Tibial Pulse, Left Posterior Tibial Pulse, Right Radial Pulse, Left Radial Pulse Lower Extremity Edema: None: Bilateral Psych Psychological: normal affect Assessment AND Plan 1. Chest pain R07.9 Plan 1. Chest pain: Patient developed severe left arm pain radiating to her left chest about 4 months ago, and has had generalized feeling of unwellness ever since. Although her EKG was reportedly demonstrating a possible old inferior SC, I do not see that on her EKG from that time. Patient has had progressively worsening dyspnea on exertion, shortness of breath, with associated left upper chest pain, with associated cough. She is admitting smoking crack cocaine addict with use about 1-2 times per week and a smoker. I recommended the patient undergo a 2D echo with Doppler to determine her LV function and pulmonary pressures. If the patient has evidence of previous myocardial infarction, I would skip over a stress test and go directly to diagnostic coronary angiogram. If however her echocardiogram is normal I would recommend that she undergo a treadmill echocardiogram to assess for possible ischemia. If this is grossly abnormal for ischemia she will require diagnostic coronary angiogram. In the meantime I recommend that she initiate baby aspirin and continue her amlodipine. Her blood pressure is optimized. In addition I recommended she discontinue all tobacco and crack cocaine products and she may cause coronary vasospasm and possible myocardial infarction and arrhythmia. Patient is voiced understanding and agrees to comply. In addition we will obtain a fasting lipid profile to further risk stratify her. Orders Orders: 2. Hypertension I10 Plan 2. Hypertension: Her blood pressure is optimized but she has not admitted history of severe snoring, exhaustion when she wakes up, and daytime somnolence. I recommended that she undergo a full sleep study to determine if she has undiagnosed obstructive sleep apnea. 3. Substance abuse: The patient may require more aggressive substance abuse management, and may require admission as well. 4. Return office in 1 month. This note was generated using a voice recognition system and there may be incorrect words, spelling or punctuation that were not noted when reviewing the office note prior to saving. Orders Orders: Plan Detail Other Orders Orders: Other Medications Discontinued: naproxen Discontinued Reason: Pt no longer ta500 mg PO BID Neelam odell cyclobenzaprine Discontinued Reason: Pt no lo10 mg PO TID PRN Muscle Spasm Neelam maddox taking Follow Up +6M (Tuan) +1M (Tuan) Coding Level of Care Code Off vis,new,level 4 Diagnoses Chest pain R07.9 Hypertension I10 Coding Level of Care Code Off vis,new,level 4 Diagnoses Chest pain R07.9 Hypertension I10 09/08/17 1357 <Electronically signed by Fransisco Dickerson MD> Date Fransisco Dickerson MD Cosigner Signature: Date (if applicable) CC: TORRI JEAN [facility] THYROID Observed: 08/12/2017 Status: F Source: [place] 10:53 AM [facility] REPOSITORY [facility] Imaging Services [facility] [place] [address] Thyroid MR#: [id number] Acct: [id number] Name: MAXIBALJIT Adam Rep #: [id number] : 1970 F 47 From: Pardeep Dickens PCP: TORRI WILKERSON Status: REG CLI Study: Thyroid Date of Exam: 08/12/17 Exam# [id number] Ordering Dr: Torri Duncan STUDY: THYROID ULTRASOUND REASON FOR EXAM: Female, 47 years old. Thyroid enlargement TECHNIQUE: Ultrasound evaluation of the thyroid was performed with real-time and static crespo-scale imaging. COMPARISON: None. FINDINGS: RIGHT LOBE: The right lobe of the thyroid gland measures 4.7 x 2 x 1.9 cm. There is a homogeneous echotexture. There are no demonstrated solid, cystic or complex lesions. LEFT LOBE: The left lobe of the thyroid gland measures 4.6 x 3.3 x 1.6 cm. There is a homogeneous echotexture. There are no demonstrated solid, cystic or complex lesions. ISTHMUS: The isthmus measures 5 mm. . The regional lymph nodes are normal. US/Thyroid IMPRESSION: Normal ultrasound examination of the thyroid. Electronically Signed: Pardeep Dickens MD at 5:45 EDT , Service support , CC: TORRI WILKERSON Invasive Manager: Signed 12 LEAD ELECTROCARDIOGRAM Observed: 08/11/2017 Status: F Source: [place] 12:54 PM [facility] REPOSITORY [facility] Cardiovascular Services [address] [place] [id number] 12 Lead EKG 08/10/17 1321 MR#: [id number] Acct: [id number] Name: BALJIT WYNN Rep #: [id number] : 1970 47 From: Vishal Strauss MD Attending Dr: TORRI WILKERSON Status: REG CLI Ordering Dr: Torri Duncan Date: 08/10/17 Location: [facility] Sex: F AA Admitted: Test Reason : CHEST DISCOMFORT Blood Pressure : / mmHG Vent. Rate : 051 BPM Atrial Rate : 051 BPM P-R Int : 188 ms QRS Dur : 072 ms QT Int : 448 ms P-R-T Axes : 048 002 018 degrees QTc Int : 412 ms Sinus bradycardia Minimal voltage criteria for LVH, may be normal variant Possible Inferior infarct , age undetermined Abnormal ECG Confirmed by VISHAL STRAUSS MD ([id number]), fan mail editor LUCI COLÓN ([id number]) on 08/11/2017 12:54:18 PM Referred By: Noemy Brooks Confirmed By:VISHAL STRAUSS MD 08/11/17 1254 Date Vishal Strauss MD CC: Noemy JOHNSTON; TORRI JEAN [facility] Signed CHEST PA AND LATERAL Observed: 08/10/2017 Status: F Source: [place] 1:04 PM [facility] REPOSITORY [facility] Imaging Services [address] [place] [id number] Chest PA and Lateral MR#: [id number] Acct: [id number] Name: BALJIT WYNN Rep #: [id number] : 1970 F 47 From: Óscar Munoz MD PCP: TORRI JEAN [facility] Status: REG CLI Study: Chest PA and Lateral Date of Exam: 08/10/17 Exam# [id number] Ordering Dr: Torri Duncan STUDY: X-RAY CHEST REASON FOR EXAM: Female, 47 years old. Wheezing, chest discomfort TECHNIQUE: PA and lateral views of the chest. COMPARISON: 03/26/2015 FINDINGS: The lungs are clear and expanded. There is no demonstrated pleural abnormality. Normal size heart. Normal mediastinum and grey. Normal visualized pulmonary arteries. Normal visualized aortic arch and descending thoracic aorta. Normal visualized thoracic spine. Normal visualized ribs, clavicles, and shoulders. There is no demonstrated abnormality of the visualized soft tissue structures of the upper abdomen. RAD/Chest PA and Lateral IMPRESSION: Normal x-ray examination of the chest. Electronically Signed: Romeo Munoz MD at 13:26 EDT , Service support , CC: TORRI JEAN [facility] Invasive Manager: Signed PROGRESS Observed: 05/28/2017 Status: COMPLETED Source: [place] 12:56 PM [facility] REPOSITORY HNO ID: [id number] Author: Carla Rucker (Taryn) Marisol Service: (none) Author Type: Physician Commercial Review Appraiser Type: Progress Notes Filed: 05/28/2017 1:32 PM Note Text: This note was created using FLENSriter. Subjective HPI Pt presents with sinus congestion x 1 week. No significant cough. No fever. She smokes half a pack a day. She hasn't had a sinus infection in a few years. No vomiting or diarrhea. No abdominal pain. She did get a flu shot this year. 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 Review of Systems HENT: Positive for congestion, ear pain, sinus pain and sinus pressure. Negative for sore throat. Eyes: Negative. Respiratory: Negative. Cardiovascular: Negative. Gastrointestinal: Negative. Endocrine: Negative. Genitourinary: Negative. Musculoskeletal: Negative. All other systems reviewed and are negative. PAST MEDICAL HISTORY Diagnosis Date - ADHD (attention deficit hyperactivity disorder) - Anxiety - Cocaine abuse 10/2013 - Current smoker - GERD (gastroesophageal reflux disease) - GOITER NOS 05/31/2008 Previously with hyperthyroidism but presented with hypothyrodism in 05-26: US ordered US 05-26: 6.8 mm nodule in the mid R lobe with a heterogenously enlarged thyroid - Hormone replacement therapy (HRT) 03/2012 - Hypercholesterolemia 10/2012 - Hypertension - HYPOTHYROIDISM NOS 05/31/2008 TSH 0.07 (0.5-6) in 05-26: likely suppressed from thyrotoxicosis in the past (consider TRH testing) T3 86 (94-170) in 05-26 T4 4.2 (4.9-11) in 05-26 TU and FTI in therapeutic range as of 05-26 MRI 05-26 with NL findings and no pituitary issues - Marijuana abuse 12/2012, 10/2013 - Morbid obesity (HCC) 05/31/2008 - Pain in thoracic spine 05/31/2008 Current Outpatient Prescriptions: DULOXETINE HCL (CYMBALTA ORAL) Take 50 mg by mouth once daily. Disp: Rfl: levothyroxine (SYNTHROID) 125 mcg tablet Take 1 tablet by mouth once daily. Disp: Rfl: 0 amLODIPine (NORVASC) 5 mg tablet Take 1 tablet by mouth once daily. Disp: 30 tablet Rfl: 6 estrogens conjugated (PREMARIN) 1.25 mg tablet Take 1 tablet by mouth once daily. Disp: 30 tablet Rfl: 6 amoxicillin-clavulanic acid (AUGMENTIN) 875-125 mg per tablet Take 1 tablet by mouth twice daily for 10 days. Disp: 20 tablet Rfl: 0 fluticasone (FLONASE) 50 mcg/actuation nasal spray Use 2 Sprays in each nostril once daily. Disp: 1 Bottle Rfl: 11 OMEPRAZOLE ORAL Take by mouth as needed. Disp: Rfl: No current facility-administered medications for this visit. PAST SURGICAL HISTORY Procedure Laterality Date - APPENDECTOMY 03/2012 same time as hysterectomy - CARPAL TUNNEL 2013 left - EXTRACTION ERUPTED TOOTH/EXR 2016 infected tooth extracted - INDUCED - EVACUATION x 2 - REMOVAL OF OVARY/TUBE(S) 2012 Mbgzhjea-kggufbcggyui-slfl separate from hysterectomy - REVISE MEDIAN N/CARPAL TUNNEL SURG 08/20/2012 Carpal tunnel decomp - right - S TUBAL LIGATION 1993 - SUTURE SM INTEST,MULTPL PERF 03/24/12 x 2; during BSO - TOTAL ABDOM HYSTERECTOMY 2011 JANNA for fibroids FAMILY HISTORY Problem Relation Age of Onset - Hypertension Father - Pancreatic cancer [Other] [OTHER] Father - Diabetes Father Social History Substance Use Topics - Smoking status: Current Every Day Smoker Packs/day: 0.50 Years: 15.00 Types: Cigarettes - Smokeless tobacco: Never Used - Alcohol use No Comment: rare Objective BP 130/80 Pulse 60 Temp 36.7 ?C (98.1 ?F) (Tympanic) Resp 16 Wt 110.2 kg (243 lb) LMP 02/19/2010 BMI 41.71 kg/m2 Physical Exam Constitutional: She is oriented to person, place, and time. She appears well-developed and well-nourished. HENT: Head: Normocephalic and atraumatic. Right Ear: External ear normal. Left Ear: External ear normal. Mouth/Throat: Oropharynx is clear and moist. Maxillary sinus pain on palpation Eyes: EOM are normal. Pupils are equal, round, and reactive to light. Neck: Normal range of motion. Cardiovascular: Normal rate, regular rhythm and normal heart sounds. Pulmonary/Chest: Effort normal and breath sounds normal. No respiratory distress. Lymphadenopathy: She has no cervical adenopathy. Neurological: She is alert and oriented to person, place, and time. Skin: Skin is warm and dry. No rash noted. Psychiatric: She has a normal mood and affect. Her behavior is normal. Nursing note and vitals reviewed. Assessment and Plan ASSESSMENT/PLAN: 1. Acute non-recurrent maxillary sinusitis - ICD9: 461.0, ICD10: J01.00 - Will begin treatment with Augmentin 875 mg PO BID for 10 days - Supportive care with plenty of fluids, rest, and analgesia prn. Carla Pugh PA-C CNOV Observed: 05/28/2017 Status: COMPLETED Source: [place] 12:45 PM [facility] REPOSITORY Office Visit (WSTR) BALJIT WYNN ([id number]) 1970 F Date Time Provider Department 05/28/17 12:45 PM CARLA PUGH (TARYN) WSTR During your visit today, we recorded the following information about you: Temperature Pulse Respiration Blood pressure 98.1 degrees 60/minute 16/minute 130/80 Weight 110.2 kg Carla Pugh PA-C 05/28/2017 1:32 PM Signed This note was created using FLENSriter. Subjective HPI Pt presents with sinus congestion x 1 week. No significant cough. No fever. She smokes half a pack a day. She hasn't had a sinus infection in a few years. No vomiting or diarrhea. No abdominal pain. She did get a flu shot this year. 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 Review of Systems HENT: Positive for congestion, ear pain, sinus pain and sinus pressure. Negative for sore throat. Eyes: Negative. Respiratory: Negative. Cardiovascular: Negative. Gastrointestinal: Negative. Endocrine: Negative. Genitourinary: Negative. Musculoskeletal: Negative. All other systems reviewed and are negative. PAST MEDICAL HISTORY Diagnosis Date - ADHD (attention deficit hyperactivity disorder) - Anxiety - Cocaine abuse 10/2013 - Current smoker - GERD (gastroesophageal reflux disease) - GOITER NOS 05/31/2008 Previously with hyperthyroidism but presented with hypothyrodism in 05-26: US ordered US 05-26: 6.8 mm nodule in the mid R lobe with a heterogenously enlarged thyroid - Hormone replacement therapy (HRT) 03/2012 - Hypercholesterolemia 10/2012 - Hypertension - HYPOTHYROIDISM NOS 05/31/2008 TSH 0.07 (0.5-6) in 05-26: likely suppressed from thyrotoxicosis in the past (consider TRH testing) T3 86 (94-170) in 05-26 T4 4.2 (4.9- 11) in 05-26 TU and FTI in therapeutic range as of 05-26 MRI 05-26 with NL findings and no pituitary issues - Marijuana abuse 12/2012, 10/2013 - Morbid obesity (HCC) 05/31/2008 - Pain in thoracic spine 05/31/2008 Current Outpatient Prescriptions: DULOXETINE HCL (CYMBALTA ORAL) Take 50 mg by mouth once daily. Disp: Rfl: levothyroxine (SYNTHROID) 125 mcg tablet Take 1 tablet by mouth once daily. Disp: Rfl: 0 amLODIPine (NORVASC) 5 mg tablet Take 1 tablet by mouth once daily. Disp: 30 tablet Rfl: 6 estrogens conjugated (PREMARIN) 1.25 mg tablet Take 1 tablet by mouth once daily. Disp: 30 tablet Rfl: 6 amoxicillin-clavulanic acid (AUGMENTIN) 875-125 mg per tablet Take 1 tablet by mouth twice daily for 10 days. Disp: 20 tablet Rfl: 0 fluticasone (FLONASE) 50 mcg/actuation nasal spray Use 2 Sprays in each nostril once daily. Disp: 1 Bottle Rfl: 11 OMEPRAZOLE ORAL Take by mouth as needed. Disp: Rfl: No current facility-administered medications for this visit. PAST SURGICAL HISTORY Procedure Laterality Date - APPENDECTOMY 03/2012 same time as hysterectomy - CARPAL TUNNEL 2013 left - EXTRACTION ERUPTED TOOTH/EXR 2016 infected tooth extracted - INDUCED - EVACUATION x 2 - REMOVAL OF OVARY/TUBE(S) 2011 Lllytqje-bfscktsyhobd-tidy separate from hysterectomy - REVISE MEDIAN N/CARPAL TUNNEL SURG 08/20/2012 Carpal tunnel decomp - right - S TUBAL LIGATION 1993 - SUTURE SM INTEST,MULTPL PERF 03/24/12 x 2; during BSO - TOTAL ABDOM HYSTERECTOMY 2011 JANNA for fibroids FAMILY HISTORY Problem Relation Age of Onset - Hypertension Father - Pancreatic cancer [Other] [OTHER] Father - Diabetes Father Social History Substance Use Topics - Smoking status: Current Every Day Smoker Packs/day: 0.50 Years: 15.00 Types: Cigarettes - Smokeless tobacco: Never Used - Alcohol use No Comment: rare Objective BP 130/80 Pulse 60 Temp 36.7 ?C (98.1 ?F) (Tympanic) Resp 16 Wt 110.2 kg (243 lb) LMP 02/19/2010 BMI 41.71 kg/m2 Physical Exam Constitutional: She is oriented to person, place, and time. She appears well-developed and well-nourished. HENT: Head: Normocephalic and atraumatic. Right Ear: External ear normal. Left Ear: External ear normal. Mouth/Throat: Oropharynx is clear and moist. Maxillary sinus pain on palpation Eyes: EOM are normal. Pupils are equal, round, and reactive to light. Neck: Normal range of motion. Cardiovascular: Normal rate, regular rhythm and normal heart sounds. Pulmonary/Chest: Effort normal and breath sounds normal. No respiratory distress. Lymphadenopathy: She has no cervical adenopathy. Neurological: She is alert and oriented to person, place, and time. Skin: Skin is warm and dry. No rash noted. Psychiatric: She has a normal mood and affect. Her behavior is normal. Nursing note and vitals reviewed. Assessment and Plan ASSESSMENT/PLAN: 1. Acute non-recurrent maxillary sinusitis - ICD9: 461.0, ICD10: J01.00 - Will begin treatment with Augmentin 875 mg PO BID for 10 days - Supportive care with plenty of fluids, rest, and analgesia prn. Carla Pugh PA-C Referring Provider: SELF [200] Allergies As of Date: 05/28/2017 Noted Allergy Reaction CODEINE 07/23/2009 9 - Itching LISINOPRIL 07/19/2012 10 - Anaphylaxis Date Reviewed: 05/28/2017 Reviewed by: Florentino Duque Cma - Fully Assessed Reason for Visit: Pain, Sinus [857] Cmt: sinus pressure/drainage x 1 week Earache [243] Cmt: (both) ears x 1 week Primary Visit Diagnosis:Acute non-recurrent maxillary sinusitis [J01.00] Order(s):amoxicillin-clavulanic acid (AUGMENTIN) 875-125 mg per tabletTake 1 tablet by mouth twice daily for 10 days.Disp: 20 tabletRfl: 0 fluticasone (FLONASE) 50 mcg/actuation nasal sprayUse 2 Sprays in each nostril once daily.Disp: 1 BottleRfl: 11 Prescriptions as of 05/28/2017 Sig: CYMBALTA ORAL Take 50 mg by mouth once oh* LEVOTHYROXINE 125 MCG TABLET Take 1 tablet by mouth once d* AMLODIPINE 5 MG TABLET Take 1 tablet by mouth once d* CONJUGATED ESTROGENS 1.25 MG * Take 1 tablet by mouth once d* AMOXICILLIN 875 MG-POTASSIUM * Take 1 tablet by mouth twice * FLUTICASONE 50 MCG/ACTUATION * Use 2 Sprays in each nostril * OMEPRAZOLE ORAL Take by mouth as needed. Medication notes this encounter OMEPRAZOLE ORAL >> Florentino Duque Cma 05/28/2017 12:48 PM >> FLORENTINO DUQUE CMA Eliane May 28, 2017 12:48 PM Not taking Problem List As Of Date 05/28/2017 Noted Resolved Routine general medical examination at a health*INVALID FOR*08/03/2015 More... OBESITY NOS [E66.9] INVALID FOR*08/03/2015 GOITER NOS [E04.9] INVALID FOR* More... Hypothyroidism [E03.9] INVALID FOR* More... PAIN IN THORACIC SPINE [M54.6] INVALID FOR* More... Unspecified sleep apnea [G47.30] INVALID FOR*08/03/2015 More... Pain in Joint, Lower Leg [M25.569] INVALID FOR* Puncture wound of small intestine, open [S36.49*INVALID FOR* Incisional pain [R20.8] INVALID FOR* Right carpal tunnel syndrome [G56.01] INVALID FOR* Left carpal tunnel syndrome [G56.02] INVALID FOR* Tobacco abuse [Z72.0] INVALID FOR* Menopausal disorder [N95.9] INVALID FOR* Right upper quadrant abdominal pain [R10.11] INVALID FOR* Thoracic back pain [M54.6] INVALID FOR* Hypertension [I10] GERD (gastroesophageal reflux disease) [K21.9] Morbid obesity (HCC) [E66.01] INVALID FOR* Current smoker [F17.200] Marijuana abuse [F12.10] Cocaine abuse [F14.10] INVALID FOR* Prescriptions ordered this encounter Disp Refills Start End AMOXICILLIN 875 MG-POTASSIUM CLAVULA* 20 t* 0 05/28/2017 06/07/2017 Route: ORAL Sig: Take 1 tablet by mouth twice daily for 10 days. FLUTICASONE 50 MCG/ACTUATION NASAL S* 1 Spike* 11 05/28/2017 Route: EACH NOSTRIL Sig: Use 2 Sprays in each nostril once daily. Letter Text [facility] TARYN Davis [address] [place], [place] [address] 05/28/2017 TO WHOM IT MAY CONCERN: This is to confirm that Baljit Medina Maxi had an appointment and was seen at the [facility] in the Department of Urgent Care by TARYN Davis on 05/28/2017. Sincerely yours, TARYN Davis Encounter Status:Closed by CARLA PUGH PA-C on 05/28/17 ALLERGIES ALLERGIES DATE TYPE / CODE NAME / CODE REACTION SEVERITY SOURCE 02/21/2018 Drug lisinopril/F0060 Unknown Unknown [facility] Allergy/416 84961(RXNORM) [facility] 713204([facility] ED CT) Repository 02/21/2018 Drug codeine/[id number] Unknown Unknown [facility] Allergy/416 50(RXNORM) [facility] 587846([facility] ED CT) Repository 07/19/2012 DRUG LISINOPRIL ANAPHYLAXIS [address] 669170(SN Repository ED CT) 07/23/2009 DRUG CODEINE ITCHING [address] [id number]([facility] Repository ED CT) ENCOUNTERS ENCOUNTERS ADMIT/DISCHARGE ACCOUNT ADMITTING ENCOUNTER LOCATION SOURCE NUMBER CLASS 04/15/2018 [id number] Ambulatory [facility] ing:WOBLAB Repository 03/30/2018 [id number] Ambulatory [address] [place] [address] Repository 03/16/2018 [id number] Ambulatory [facility] ing:CT Repository 02/21/2018/02/22/20 [id number] Emergency [address] [facility] Hospital ing:ED Repository 02/05/2018/02/09/20 [id number] Ambulatory [address] Repository 01/14/2018 [id number] Ambulatory [facility] ing:CT Repository 12/29/2017 [id number] Ambulatory [address] [place] [address] Repository 11/24/2017 [id number] Ambulatory [address] [place] [address] Repository 11/24/2017 [id number] Ambulatory [facility] Repository 11/03/2017 [id number] Ambulatory [facility] ing:MRI Repository 11/03/2017 [id number] Ambulatory [address] [place] [address] Repository 10/23/2017 [id number] Ambulatory BMSBuilding:B [facility] Hospital Repository 10/16/2017/10/17/19 [id number] Emergency [address] Hospital[facility] Hospital ing:ED Repository 10/14/2017 [id number] Ambulatory [facility] ing:[facility]S Repository 10/14/2017 [id number] Ambulatory BMSBuilding:W [facility] Hospital Repository 10/14/2017/10/15/19 [id number] Ambulatory BMSBuilding:B [facility] 18 [facility] Hospital Repository 10/14/2017/10/15/19 [id number] Emergency [address] Hospital[facility] Hospital ing:ED Repository 10/02/2017 [id number] Ambulatory [facility] ing:[facility]S Repository 10/02/2017 [id number] Ambulatory BMSBuilding:W [facility] Hospital Repository 09/30/2017 [id number] Ambulatory [facility] ing:SL Repository 09/23/2017/09/24/19 [id number] Emergency [address] Hospital[facility] Hospital ing:ED Repository 09/08/2017/09/09/19 [id number] Ambulatory BMSBuilding:B [facility] [address] [facility] Repository 08/12/2017 [id number] Ambulatory [facility] ing:US Repository 08/10/2017 [id number] Ambulatory [facility] ing:RAD Repository 08/10/2017 [id number] Ambulatory BMSBuilding:W [facility] Repository 05/28/2017/05/29/19 [id number] Ambulatory [address] Repository PAYERS PAYERS ENCOUNTER GUARANTOR PAYER SUBSCRIBER SOURCE 04/15/2018 BALJIT L Primary BALJIT L [facility] [id number] E Insurance:[facility]: [facility] Number: [id number] [place], [place] [id number] Repository [address]Pto: 330) Date:2018-04-15P O [phone] () [address]ATTN: [place] [address]LI: 04/15/2018 Secondary NOT GIVENUNK [facility] Insurance:SELF PAY [facility] Number: Effective Repository Date:2018-04-15 03/30/2018 BALJIT L. Primary BALJIT L. [employer] DONOVAN: Insurance:[facility]: [facility] Number: [id number] [facility] [id number] [place], [place] Date:[place], [place] [address]Krw: ([phone]) Name:[facility] [address] [address]Dqs: () [address], [place] [phone] () [id number]: 03/16/2018 BALJIT L Primary BALJIT L [facility] [id number] E Insurance:[facility]: [facility] Number: [id number] [place], [place] [id number] Repository [address]Bbt: (330) Date:2017-10-14P O [phone] () [address]ATTN: [place] [address]DO: 03/16/2018 Secondary NOT GIVENUNK Amaris Insurance:SELF PAY [facility] Number: Effective Repository Date:2017-10-14 02/21/2018 BALJIT L Primary BALJIT L [facility] [id number] E Insurance:CARESOURCEP HATBORODOB: [facility] Number: [id number] [place], [place] [id number] Repository [address]Yne: (330) Date:2018-02-21P O [phone] () [address]ATTN: [place] [address]TO: 02/21/2018 Secondary NOT GIVENUNK Am[place] Insurance:SELF PAY [facility] Number: Effective Repository Date:2018-02-21 01/14/2018 BALJIT L Primary BALJIT L [facility] [id number] E [facility] Number: [id number] [place], [place] [id number] Repository [address]Nqi: (330) Date:2017-12-10P O [phone] () [address]ATTN: [place] [address]QH: 01/14/2018 Secondary NOT GIVENUNK Am[place] Insurance:SELF PAY [facility] Number: Effective Repository Date:2017-12-10 12/29/2017 BALJIT L. Primary [facility]IT L. [facility] Insurance:CaresourceP DAVIDB: [facility] Number: [id number] [facility] [id number] [place], [place] Date:[place], [place] [address]Qby: ([phone]) Name:[facility] [address] [address]Cpx: (HP) [place], [place] [phone] () [id number]: 11/24/2017 Baljit L. Primary Baljit L. [place] DavidB: Insurance:Cares[employer]P DavidB: [facility] E olicy Number: [id number] Repository [place] [id number] E [facility], [place] Date:[place], [place] [address]Qxl: (330) Name:HealthP [address] [address]Ufw: (HP) [address], [place] [phone] (HP) [id number]: 11/24/2017 BALJIT L. Primary [facility] L. [facility]: Insurance:[facility]: [facility] E [facility] Number: [id number] Repository [place] [id number] E [facility], [place] Date:[place], [place] [address]Gww: ([phone]) Name:[facility] [address] [address]Knn: (HP) [address], [place] [phone] (HP) [id number]: 11/03/2017 BALJIT L Primary BALJIT L [facility]409 E Insurance:[facility]: [facility] Number: [id number] [place], [place] [id number] Repository [address]Ntt: (330) Date:2017-10-23P O [phone] () [address]ATTN: [place] [address]UW: 11/03/2017 Secondary NOT GIVENUNK Amaris Insurance:SELF PAY [facility] Number: Effective Repository Date:2017-10-23 11/03/2017 Baljit L. Primary Bal[facility]it L. [facility]: [facility]: [facility] E oly Number: [id number] Repository [place] [id number] E [facility], [place] Date:[place], [place] [address]Zgm: ([phone]) Name:[facility] [address] [address]Psl: () [address], [place] [phone] () [id number]: 10/23/2017 BALJIT L Primary BALJIT L [facility] [id number] E Insurance:CARESOURCEP CLARKDOB: [facility] Number: [id number] [place], [place] [id number] Repository [address]Sdb: (330) Date:2017-09-08P O [phone] () [address]ATTN: [place] [address]KM: 10/23/2017 Secondary NOT GIVENUNK Amaris Insurance:SELF PAY [facility] Number: Effective Repository Date:2017-09-08 10/16/2017 BALJIT L Primary BALJIT L [facility] [id number] E Insurance:CARESOURCEP CLARKDOB: [facility] Number: [id number] [place], [place] [id number] Repository [address]Ekx: (330) Date:2017-10-16P O [phone] () [address]ATTN: [place] [address]GZ: 10/16/2017 Secondary NOT GIVENUNK Amaris Insurance:SELF PAY [facility] Number: Effective Repository Date:2017-10-16 10/14/2017 BALJIT L Primary BALJIT L [facility] [id number] E Insurance:CARESOURCEP CLARKDOB: [facility] Number: [id number] [place], [place] [id number] Repository [address]Dwq: (330) Date:2017-09-08P O [phone] () [address]ATTN: [place] [address]VK: 10/14/2017 Secondary NOT GIVENUNK Amaris Insurance:SELF PAY [facility] Number: Effective Repository Date:2017-09-08 10/14/2017 BALJIT L Primary BALJIT L [facility] [id number] E Insurance:CARESOURCEP CLARKDOB: [facility] Number: [id number] [place], [place] [id number] Repository [address]Qpr: (330) Date:2017-09-08P O [phone] (HP) [address]ATTN: [place] [address]MH: 10/14/2017 Secondary NOT GIVENUNK [facility] Insurance:SELF PAY [facility] Number: Effective Repository Date:2017-10-14 10/14/2017 BALJIT L Primary BALJIT L [facility] [id number] E Insurance:[employer]P DAVIDB: [facility] Number: [id number] [place], [place] [id number] Repository [address]Mvb: (330) Date:2017-09-24P O [phone] (HP) [address]ATTN: [place] [address]XT: 10/14/2017 Secondary NOT GIVENUNK [facility] Insurance:SELF PAY [facility] Number: Effective Repository Date:2017-10-13 10/14/2017 BALJIT L Primary BALJIT L [place] [id number] E Insurance:[employer]P DAVIDB: [facility] Number: [id number] [place], [place] [id number] Repository [address]Eqw: (330) Date:2017-10-14P O [phone] () [address]ATTN: [place] [address]PS: 10/14/2017 Secondary NOT GIVENUNK Amaris Insurance:SELF PAY [facility] Number: Effective Repository Date:2017-10-14 10/02/2017 BALJIT L Primary BALJIT L [facility] [id number] E Insurance:CAR[employer]P DAVIDB: [facility] Number: [id number] [place], [place] [id number] Repository [address]Doj: (330) Date:2017-09-08P O [phone] (HP) [address]ATTN: [place] [address]SQ: 10/02/2017 Secondary NOT GIVENUNK [facility] Insurance:SELF PAY [facility] Number: Effective Repository Date:2017-09-08 10/02/2017 BALJIT L Primary BALJIT L [facility] [id number] E Insurance:CARESOURCEP CLARKDOB: [facility] Number: [id number] [place], [place] [id number] Repository [address]Dld: (330) Date:2017-09-08P O [phone] () [address]ATTN: [place] [address]GU: 10/02/2017 Secondary NOT GIVENUNK [facility] Insurance:SELF PAY [facility] Number: Effective Repository Date:2017-10-02 09/30/2017 BALJIT L Primary BALJIT L [facility] [id number] E Insurance:CARESOURCEP CLARKDOB: [facility] Number: [id number] [place], [place] [id number] Repository [address]Beo: (330) Date:2017-09-10P O [phone] () [address]ATTN: [place] [address]CL: 09/30/2017 Secondary NOT GIVENUNK Am[place] Insurance:SELF PAY [facility] Number: Effective Repository Date:2017-09-10 09/23/2017 BALJIT L Primary BALJIT L [facility] [id number] E Insurance:[employer]P CLARKDOB: [facility] Number: [id number] [place], [place] [id number] Repository [address]Lzc: (330) Date:2017-09-23P O [phone] () [address]ATTN: [place] [address]PC: 09/23/2017 Secondary NOT GIVENUNK [facility] Insurance:SELF PAY [facility] Number: Effective Repository Date:2017-09-23 09/08/2017 BALJIT L Primary BALJIT L [facility] [id number] E Insurance:CARESOURCEP MAXIDOB: [facility] Number: [id number] [place], [place] [id number] Repository [address]Szg: (330) Date:2017-08-19P O [phone] (HP) [address]ATTN: [place] [address]DH: 09/08/2017 Secondary NOT GIVENUNK [facility] Insurance:SELF PAY [facility] Number: Effective Repository Date:2017-08-19 08/12/2017 BALJIT L Primary BALJIT L [facility] [id number] E Insurance:[employer]P DAVIDB: [facility] Number: [id number], [place] [id number] Repository [address]Jky: (330) Date:2017-08-10P O [phone] () [address]ATTN: [place] [address]AN: 08/12/2017 Secondary NOT GIVENUNK Am[place] Insurance:SELF PAY [facility] Number: Effective Repository Date:2017-08-10 08/10/2017 Baljit L Primary Baljit L [facility] [id number] E Insurance:CARESOURCEP DavidB: [facility] Number: [id number] [place], [place] [id number] Repository [address]Bbz: (330) Date:2017-08-10P O [phone] () [address]ATTN: [place] [address]AJ: 08/10/2017 Secondary NOT GIVENUNK Amaris Insurance:SELF PAY [facility] Number: Effective Repository Date:2017-08-10 08/10/2017 BALJIT L Primary BALJIT L [facility] [id number] E Insurance:CARESOURCEP MAXIDOB: [facility] Number: [id number] [place], [place] [id number] Repository [address]Mrq: (330) Date:2017-08-10P O [phone] (HP) [address]ATTN: [place] [address]GO: 08/10/2017 Secondary NOT GIVENUNK [facility] Insurance:SELF PAY [facility] Number: Effective Repository Date:2017-08-10
== END ==
PROVIDERS: Family Provider Nurse Practitioner Family; PCP Nurse Practitioner Family; Visit Provider Obstetrics & Gynecology
DX: R68.82 Decreased libido (principal); E03.9 Hypothyroidism, unspecified
CPT/HCPCS: 36415; 84402; 84403; 84439; 84443; 84481

== ENCOUNTER → 2018-06-10 14:25 | Outpatient (CLI) | payer MEDICAID, SELFPAY ==
[2018-06-10 16:21] LABS: Free T3 2.4 pg/mL (2.18-3.98); T4 Free Direct 1.27 ng/dL (0.76-1.46); Thyroid Stim Hormone (TSH) 2.64 uIU/mL (0.358-3.74)
== END ==
PROVIDERS: Family Provider Nurse Practitioner Family; PCP Nurse Practitioner Family; Visit Provider Obstetrics & Gynecology
DX: E03.9 Hypothyroidism, unspecified (principal)
CPT/HCPCS: 36415; 84439; 84443; 84481

== ENCOUNTER 2019-04-24 11:41 | Emergency (ER) | payer MEDICAID, SELFPAY ==
[2019-04-24 11:41] VITALS: BP 158/83; PULSE 77; RESP 18; TEMP 36.6; O2SAT 100; BMI 41.1
--- NOTE | 2019-04-24 12:15 | ED.DCSUM_ITS ---
History of Present Illness Chief Complaint: General Illness Informant: Patient Onset: Days Context: Gradual Onset Timing: Continuous Narrative: Patient is a 49-year-old female with history of hypertension and hypothyroid presenting with concern for sepsis. Patient states she is concerned she has sepsis because she recently had a tooth pulled and she is been on a lot of antibiotics. She notes over the past few days she has had discomfort in her chest and a cough. She states nonproductive. She is also had associated sore throat, nasal congestion and ear pain. She has not been feeling well. She denies any fever or chills. She denies any urinary symptoms. She notes she has had intermittent diarrhea but it chooses to her antibiotics. States she is on Plavix for about 3 months. She states she has no more than 4 bowel movements a day and normally they are soft. Patient finished her last antibiotic yesterday. She denies any other concerns at this time. Past Medical History - Allergies and Home Meds Allergies/Adverse Reactions: Allergies codeine Allergy (Verified 04/24/19 11:44) Unknown lisinopril Allergy (Verified 04/24/19 11:44) Unknown Primary Care Physician: [facility] Bette Millard [Primary Care Provider] - Past Medical History: - - Hypertension, hypothyroid Surgical History: noncontributory Lives: Spouse/ Significant Other Smoking Status: Current every day smoker Alcohol: Occasional Drugs: Cocaine, Marijuana Review of Systems General: Reports: Malaise. Denies: Chills, Fever, Sweats Eyes: Denies: Visual changes - bilaterally, Diplopia ENT: Denies: Rhinorrhea, Sore throat Cardiovascular: Reports: Chest pain - Tightness. Denies: Palpitations Respiratory: Reports: Cough. Denies: Dyspnea, Dyspnea on exertion Gastrointestinal: Reports: Diarrhea. Denies: Abdominal pain, Nausea, Vomiting, Melena, Hematochezia Genitourinary: Denies: Dysuria, Hematuria, Frequency Musculoskeletal: Denies: Back pain, Extremity Pain Skin: Denies: Rash, Wounds Neurological: Denies: Headache, Weakness, Numbness Physical Exam Vital Signs/Narrative: Vital Signs Temp Pulse Resp BP Pulse Ox 04/24/19 11:41 97.9 F 77 18 158/83 H 100 Inital Vital Signs reviewed: Yes General: Well nourished, Well developed, No Acute Distress Head: Normocephalic, Atraumatic Eyes: Perrl, EOMI ENT: Moist mucous membranes, No rhinorrhea, TM's clear, Nasal congestion. Negative for: Sinus tenderness Neck: Supple, Nontender, No lymphadenopathy Cardiovascular: Regular rate, Regular rhythm, No murmurs Respiratory: No distress, CTA bilaterally, Chest nontender, - - Wet cough on exam. Negative for: Wheezing Abdomen: Soft, Nontender, Nondistended, Normal bowel sounds Back: Nontender, Normal Inspection Extremities: Nontender, No edema Skin: Normal color, No rash Neurological: Alert, Oriented x3, Cranial nerves II-XII grossly intact, Normal Strength, Normal Sensation Psychological: Normal affect, Normal Mood Diagnostic/Tx/Re-eval Chest X-Ray - ED: 2 View, Read by ED Physician, Read by Radiologist, No Acute Disease - Medical Decision Making Patient initially evaluated for concern of sepsis. Patient does not even have sirs criteria. She does not have signs or symptoms concerning for dental infection or Dontae's angina. She is well-appearing. Patient does have symptoms consistent with an upper respiratory infection. She is a smoker and she has had cough productive of some sputum I did obtain a chest x-ray. This was negative for pneumonia. Patient is counseled on xyuu-vna-olarysb symptomatic treatment. I feel that she is safe for outpatient follow-up. She is counseled on signs symptoms requiring return to emergency room. She verbalizes agreement understand this plan. Discharged home in stable condition. ED Disposition - Plan for ED Patient: Disposition: Home or Assisted Living Diagnosis: URI (upper respiratory infection) Instructions: URI, Viral, No Abx (Adult) Referrals: Bette Duncan [Primary Care Provider] - Additional Instructions: You do not have sepsis. You do not have pneumonia on your chest x-ray. Likely you have a virus that is causing all of your symptoms. You may take lbnd-dmz-jlqqits cold and flu medicine to help with your symptoms. Return to emergency room if you have worsening symptoms. Otherwise, follow-up with your primary care doctor.
--- NOTE | 2019-04-24 12:25 | RAD_ITS ---
STUDY: X-RAY CHEST REASON FOR EXAM: Female, 49 years old. Sepsis TECHNIQUE: Frontal and lateral views COMPARISON: February 21, 2018 FINDINGS: The lungs are clear and expanded. There is no demonstrated pleural abnormality. Normal size heart. Normal mediastinum and grey. Normal visualized pulmonary arteries. Normal visualized aortic arch and descending thoracic aorta. Degenerative changes of the thoracic spine. Normal visualized ribs, clavicles, and shoulders. There is no demonstrated abnormality of the visualized soft tissue structures of the upper abdomen. RAD/Chest PA and Lateral IMPRESSION: Normal x-ray examination of the chest. Electronically Signed: Erik Corbett DO at 13:08 EST Tel [phone], Service support ,
== END 2019-04-24 14:00 | disposition home or self-care (01) ==
PROVIDERS: Emergency Provider Emergency Medicine
DX: J06.9 Acute upper respiratory infection, unspecified (principal); I10 Essential (primary) hypertension; E03.9 Hypothyroidism, unspecified; F17.200 Nicotine dependence, unspecified, uncomplicated; Z88.5 Allergy status to narcotic agent
CPT/HCPCS: 71046; 99282

== ENCOUNTER 2019-07-11 10:18 | Emergency (ER) | payer MEDICAID, SELFPAY ==
[2019-07-11 10:20] VITALS: BP 144/89; PULSE 58; RESP 16; TEMP 36; O2SAT 100; BMI 41.1
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
[2019-07-11] MEDS: Ibuprofen 600 MG Tablet PO (10:35)
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
--- NOTE | 2019-07-11 12:08 | ED.DEP ---
ED Disposition - Plan for ED Patient: Instructions: Neck Sprain/Strain Prescriptions: cycloBENZAPRine HCl [Flexeril] 10 mg PO TID PRN #20 tablet PRN Reason: Muscle Spasm Referrals: Rubina Villalta MD [Primary Care Provider] -
== END 2019-07-11 12:32 | disposition home or self-care (01) ==
PROVIDERS: Emergency Provider Emergency Medicine; PCP Internal Medicine
DX: S16.1XXA Strain of muscle, fascia and tendon at neck level, initial encounter (principal); V43.52XA Car driver injured in collision with other type car in traffic accident, initial encounter; Y92.410 Unspecified street and highway as the place of occurrence of the external cause
CPT/HCPCS: 72040; 72100; 73030; 99283

== ENCOUNTER 2019-07-19 01:41 | Observation (INO) | payer MEDICAID, SELFPAY ==
[2019-07-19] VITALS (13 sets, daily range): BP systolic 116–154; BP diastolic 65–95; PULSE 62–115; RESP 17–23; TEMP 36.4–36.9; O2SAT 95–100; BMI 43.7; BMI 43.0; BMI 43.1
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
--- NOTE | 2019-07-19 01:48 | EKG12_ITS ---
Test Reason : DYSRHYTHMIA Blood Pressure : / mmHG Vent. Rate : 107 BPM Atrial Rate : 107 BPM P-R Int : 168 ms QRS Dur : 092 ms QT Int : 350 ms P-R-T Axes : 046 -02 082 degrees QTc Int : 467 ms Sinus tachycardia Moderate voltage criteria for LVH, may be normal variant Borderline ECG Confirmed by MARCOS CHAVEZ, LEEANN ([id number]), editorial specialist GENA RIOS ([id number]) on 07/20/2019 1:38:27 PM Referred By: Confirmed By:LEEANN RODRÍGUEZ MD
[2019-07-19 02:01] LABS: Absolute Lymphocyte Count 3.16 X10^3/uL (0.83-4.51); Absolute Neutrophil Count 3.8 X10^3/uL (2.0-7.7); Basophil# 0.07 X10^3/uL; Basophil% 0.9 % (0-1); Eosinophil# 0.09 X10^3/uL; Eosinophils% 1.2 % (0-5); Hemoglobin 14.1 g/dL (12.0-15.0); Lymphocyte # 3.16 X10^3/ul (4.0); Lymphocyte % 41.7 % (19-41); Mean Corp Hgb Conc 32.8 g/dL (32-36); Mean Corpuscular Hgb 28.9 pg (27.0-32.0); Mean Corpuscular Volume 88.1 fL (81-99); Mean Platelet Vol. 10.3 fl (6.2-12.0); Monocyte# 0.44 X10^3/uL; Monocyte% 5.8 % (0-10); NRBC Flagged by Analyzer 0 % (0-5); Neutrophil # 3.79 X10^3/uL (2.7-7.7); Platelet Count 269 K/mm3 (150-450); RBC Distribution Width CV 12.2 % (11.6-14.6); RBC Distribution Width SD 39.5 fl (35.1-43.9); Red Blood Count 4.88 M/mm3 (4.2-5.4); White Blood Count 7.6 K/mm3 (4.4-11.0)
[2019-07-19] MEDS: Aspirin 325 MG Tablet PO (02:07)
[2019-07-19 02:12] LABS: International Normalized Ratio 0.9; Prothrombin Time (Protime)PT. 11.8 SECONDS (11.7-14.9)
[2019-07-19 02:21] LABS: Anion Gap 6 (5-15); BUN 7 mg/dL (7-18); BUN/Creat Ratio 6.9 RATIO (10-20); Chloride 107 mmol/L (98-107); Creatinine, Serum 1.02 mg/dL (0.55-1.02); EST Glomerular Filtration Rate 62 mL/min (>60); Est Glom Filt Rate - Afr Amer 75 mL/min (>60); Estimated Creatinine Clearance 58.88 ml/min; Glucose 124 mg/dL (74-106); Potassium 3.4 mmol/L (3.5-5.1); Sodium Level 140 mmol/L (136-145)
[2019-07-19] MEDS: Ondansetron 4 MG/2 ML Vial IV (02:22)
[2019-07-19] MEDS: Morphine 4 MG/ML Syringe IV (02:22)
[2019-07-19 02:31] LABS: D-Dimer Quantitative (DVT/PE) 0.41 FEU/ug/m (0.27-0.49)
--- NOTE | 2019-07-19 03:05 | HP.PCM_ITS ---
Problem List (1) Chest pain at rest Status: Acute (2) Excessive somnolence disorder Status: Chronic (3) Illicit drug use, continuous Status: Chronic (4) BMI 40.0-44.9, adult Status: Chronic (5) ANNETTE (obstructive sleep apnea) Status: Chronic (6) Hypertension Status: Chronic (7) Hypothyroidism (acquired) Status: Chronic Comment: previously treated for hyperthyroidism with medication (8) History of appendectomy Status: Chronic (9) History of hysterectomy Status: Chronic Comment: 2014 (10) History of tubal ligation Status: Chronic (11) Abnormal EKG Status: Chronic (12) ADHD (attention deficit hyperactivity disorder) Status: Chronic (13) Labyrinthitis Status: Chronic (14) Vertigo Status: Chronic (15) Depression Status: Chronic (16) Anxiety disorder Status: Chronic (17) Chest pain Status: Acute History of Present Illness Date of Admission: 07/19/19 Chief Complaint: chest pain The patient is a 49 year old F with a significant history of ADD; depression; anxiety; marijuana use; tobacco abuse; and cocaine use who presented to emergency department with excruciating chest pain that spun across her entire chest. He described the chest pain as pressure. Her chest pain occurred at rest. Her chest pain is persistent. She denies any aggravating or ameliorating factors. Associated with symptoms is nausea; shortness of breath and lightheadedness. Her chest pain radiates to her left arm and to her neck. Of note patient drove from [place] on the same day of presentation. She used multiple caffeine tablets as she was driving. D-dimer at the emergency department was negative. Past Medical History Past Medical History (Chronic Problems): Chronic Problems (Last Updated 03/29/18 @ 12:11 by Neelam Alvarez) Excessive somnolence disorder (Chronic) Illicit drug use, continuous (Chronic) BMI 40.0-44.9, adult (Chronic) ANNETTE (obstructive sleep apnea) (Chronic) Hypertension (Chronic) Hypothyroidism (acquired) (Chronic) previously treated for hyperthyroidism with medication History of appendectomy (Chronic) History of hysterectomy (Chronic) 2013 History of tubal ligation (Chronic) Abnormal EKG (Chronic) ADHD (attention deficit hyperactivity disorder) (Chronic) Labyrinthitis (Chronic) Vertigo (Chronic) Depression (Chronic) Anxiety disorder (Chronic) Medical History: Medical History (Last Reviewed 07/19/19 @ 04:[address] Simone Lazo MD) Excessive somnolence disorder (Chronic) G47.10 Hypertension (Chronic) I10 Hypothyroidism (acquired) (Chronic) E03.9 previously treated for hyperthyroidism with medication Abnormal EKG (Chronic) R94.31 ADHD (attention deficit hyperactivity disorder) (Chronic) Labyrinthitis (Chronic) H83.09 Vertigo (Chronic) R42 Allergies codeine Allergy (Verified 07/19/19 01:45) Itching lisinopril Allergy (Verified 07/19/19 01:45) Angioedema Home Medications: Ambulatory Orders Medication Instructions Recorded Estrogens, Conjugated [Premarin] 1.25 mg PO DAILY 04/23/14 amlodipine 10 mg tablet 10 mg PO QDAY 09/08/17 Levothyroxine [Synthroid] 100 mcg PO DAILY 04/24/19 Pregabalin [Lyrica] 150 mg PO BID 04/24/19 Testosterone 1 tab PO DAILY 04/24/19 cycloBENZAPRine HCl [Flexeril] 10 mg PO TID PRN #20 tab 07/11/19 Surgical History: Surgical History (Last Reviewed 07/19/19 @ 04:[address] Simone Lazo MD) History of appendectomy (Chronic) Z90.49 History of hysterectomy (Chronic) Z90.710 2014 History of tubal ligation (Chronic) Z98.51 Smoking Status: Current every day smoker Tobacco Use: Cigarettes Drugs: Cocaine Review of Systems Constitutional: Denies: Chills, Fever, Weight Change HEENT: Denies: Head Aches, Sinus Congestion, Sinus Drainage Cardiovascular: Reports: Chest Pain, Chest Pressure. Denies: Palpitations Respiratory: Reports: Shortness of Breath. Denies: Cough, Shortness of breath at rest, Sputum production Gastrointestinal: Reports: Nausea. Denies: Abdominal Pain, Vomiting Genitourinary: Denies: Dysuria Musculoskeletal: Reports: Neck Pain. Denies: Joint Pain, Joint Tenderness Skin: Denies: Rash, Wounds Neurological: Denies: Numbness, Tingling, Focal weakness Psychiatric: Denies: Anxiety, Depression, Homicidal Ideations, Suicidal Ideations Hematologic/ Lymphatic: Denies: Easy Bruising, Easy Bleeding VTE Information - Inpt Only VTE Present on Admission: No VTE Mechan Device Prophylaxis: SCD's, None VTE Pharm Prophylaxis ordered?: No Patient Problems: Active and Suspected Problems (Last Updated 03/29/18 @ 12:11 by Neelam Alvarez) Chest pain at rest (Acute) - Physical Exam Vitals/I&O's: Vital Signs Temp Pulse Resp BP Pulse Ox 98.5 F 96 17 154/95 H 100 07/19/19 01:42 07/19/19 02:27 07/19/19 02:27 07/19/19 02:27 07/19/19 02:27 Oxygen Delivery Method Room Air Weight: 115.4 kg Body Mass Index (BMI) 43.7 General: Alert, Oriented x3, Cooperative HEENT: Atraumatic, PERRLA, EOMI, Normocephalic Neck: Supple, No JVD, Negative Carotid Bruits Lungs: Clear to auscultation, Normal air movement, No rhonchi, No wheeze, No ra les Cardiovascular: Regular rate, Regular Rhythm, Normal S1, Normal S2, No murmurs Abdomen: Bowel Sounds Present, Soft, Non Tender Extremities: No edema, Capillary Refill Less than 3 Seconds Skin: No rashes, No breakdown Musculoskeletal: No Tenderness to Palpation of Joints or Extremities Neurological: Cranial nerves II-XII grossly intact Psych/Mental Status: Normal Affect, Appropriate Laboratory Results 07/19/19 01:50: WBC 7.6, RBC 4.88, Hgb 14.1, Hct 43.0, MCV 88.1, MCH 28.9, MCHC 32.8, RDW Std Deviation 39.5, RDW Coeff of E[place] 12.2, Plt Count 269, MPV 10.3, Immature Gran % (Auto) 0.400, Neut % (Auto) 50.0, Lymph % (Auto) 41.7 H, [place] % (Auto) 5.8, Eos % (Auto) 1.2, Baso % (Auto) 0.9, Absolute Neuts (auto) 3.8, Absolute Lymphs (auto) 3.16, Nucleated RBC % 0 07/19/19 01:50: PT 11.8, INR 0.9 07/19/19 01:50: Sodium 140, Potassium 3.4 L, Chloride 107, Carbon Dioxide 27.0, Anion Gap 6, BUN 7, Creatinine 1.02, Estim Creat Clear Calc 58.88, Est GFR (MDRD) Af Amer 75, Est GFR (MDRD) Non-Af 62, BUN/Creatinine Ratio 6.9 L, Glucose 124 H, Calcium 9.0, Troponin I < 0.015 07/19/19 01:50: D-Dimer Quant (PE/DVT) 0.41 Assessment/Plan All Active Problems (Last Updated 03/29/18 @ 12:11 by Neelam Alvarez) Chest pain at rest (Acute) Chest pain (Acute) The patient is a 49 year old F with a significant history of ADD; depression; anxiety; marijuana use; tobacco abuse; and cocaine use who presented to emergency department with excruciating chest pain that spun osorio across her entire chest. Chest pain Place on a monitored bed at PCU CXR independently reviewed confirms no acute cardiopulmonary process. EKG independently reviewed confirms sinus tachycardia with LVH. Old records reviewed showed patient had stress echocardiogram on 10/14/2017. Received aspirin 324 mg in the emergency department. ASA 81 mg p.o. daily Received morphine IV push in emergency department. Morphine as needed for pain. Nitroglycerin as needed ordered. We will check lipid panel. Serial cardiac enzymes Stat EKG as needed for chest pain Treadmill stress echo in the AM if the cardiac enzymes are negative Illicit drug use Counseled on marijuana use and tobacco use. Avoid beta-blockers. Tobacco abuse Counseled Nicotine patch ordered Hypertension On presentation blood pressure was not within goal Amlodipine continued. Trend blood pressure and adjust blood pressure medications. Morbid obesity: Complicates care. Hypothyroidism Synthroid continued. DVT prophylaxis SCD in the setting of cardiac work-up for chest pain. Code Visit OBSV E&M: 63649 Initial observation care L1
--- NOTE | 2019-07-19 03:14 | ED.DCSUM_ITS ---
- ER Visit Summary Date of Service: 07/19/19 Chief Complaint: Chest pain History of Present Illness: The patient is a 49 F presenting with chest pain. Patient states this started 1 hour prior to arrival. States she was watching TV when this started. She complains of midsternal chest pressure which radiates to her neck and left arm. She has associated shortness of breath and nausea. She denies vomiting, diaphoresis, she has history of hypertension, hypercholesteremia, smoking. She recently traveled to [place]. She states she drove and got out of the vehicle every 3-4 hours. No history of DVT. She does admit to cocaine use yesterday. Physical Examination: Vitals are stable. Patient is afebrile. Alert no acute distress. HEENT exam is unremarkable. Neck is supple. Lungs are clear and equal bilaterally. Heart is regular rate and rhythm. Abdomen is soft nontender nondistended. Extremities are unremarkable. Skin is warm and dry. No focal neurologic deficit. Remainder of exam is unremarkable. Emergency Department Course and Treatment: EKG is sinus tachycardia rate of 107 with LVH. CBC, chemistries unremarkable other than potassium 3.4, glucose 124. Troponin is negative. D-dimer 0.41. Patient was given aspirin, morphine. On reevaluation she is resting comfortably. Discussed with hospitalist for observation. Disposition: Observation Impression: Chest pain This note was generated with [employer] dictation software. It may contain incorrect words, spelling, and punctuation that were not noted in review of the chart prior to signing ED Disposition - Plan for ED Patient: Referrals: Rubina Villalta MD [Primary Care Provider] -
--- NOTE | 2019-07-19 03:30 | ED.RN ---
PATIENT STATES SHE IS UNABLE TO GIVE AND URINE PRIOR TO GOING TO THE FLOOR. DR. COX MADE AWARE.
--- NOTE | 2019-07-19 03:44 | EKG12_ITS ---
Test Reason : CP ADMISSION Blood Pressure : / mmHG Vent. Rate : 068 BPM Atrial Rate : 068 BPM P-R Int : 182 ms QRS Dur : 090 ms QT Int : 414 ms P-R-T Axes : 054 001 095 degrees QTc Int : 440 ms Normal sinus rhythm with sinus arrhythmia Normal ECG When compared with ECG of 21-FEB-2018 18:04, No significant change was found Confirmed by OLIVERIO CHAVEZ, ROSSY ([id number]), industrial editor LUCI COLÓN ([id number] on 07/25/2019 4:07:08 PM Referred By: ROBERTO Confirmed By:ROSSY DURON MD
[2019-07-19] MEDS: Nitroglycerin (INPATIENT USE) 0.4 MG TAB.SUBL SUBLINGUAL ×2 (04:10→04:19)
[2019-07-19 04:51] LABS: Amphetamine Urine VISTA NEGATIVE (<1000 ng/mL); Barbiturate Urine VISTA NEGATIVE (< 200 ng/mL); Benzodiazepine Urine VISTA NEGATIVE (< 200 ng/mL); Cocaine Urine VISTA POSITIVE (< 300 ng/mL); Ecstacy Urine VISTA NEGATIVE (< 500 ng/mL); Methadone Urine VISTA NEGATIVE (< 300 ng/mL); PCP Urine VISTA NEGATIVE (< 25 ng/mL); THC Urine VISTA POSITIVE (< 50 ng/mL); Vista UDS pH Range 6
[2019-07-19] MEDS: 0.9% Saline Lock 10 ML Syringe IV (05:02)
[2019-07-19] MEDS: Morphine 2 MG/ML Syringe IV ×2 (05:02→09:05)
[2019-07-19 05:26] LABS: Cholesterol 187 mg/dL (200); High Density Lipoprotein 85 mg/dL; Triglycerides 64 mg/dL; Very Low Density Lipoprotein 13 mg/dL (5-40)
[2019-07-19] MEDS: Levothyroxine 100 MCG Tablet PO (05:35)
[2019-07-19] MEDS: Aspirin E.C. 81 MG Tablet PO (05:35)
--- NOTE | 2019-07-19 05:55 | STEWCON_ITS ---
Reason For Study: Chest Pain Stress Results Protocol: Christopher Protocol WITH DEFINITY Maximum Predicted HR: 173 bpm Target HR: 147 bpm % Maximum Predicted HR: 87 % DurationHeart Rate Stage (mm:ss) (bpm) BP Comment Baseline 51 112/785/10 Chest Pain; 3 ML Diluted Definity Christopher Protocol Stage I 3:00 115 124/745/10 Chest Pain; Mild Dyspnea Christopher Protocol Stage II 3:00 151 140/726/10 Chest Pain; Moderate Dyspnea Recovery 75 122/705/10 Chest Pain Stress Duration: 6:00 mm:ss Maximum Stress HR: 151 bpm METS: 7 Baseline Echocardiogram Findings Right ventricular systolic pressure estimated to be 18 mmHg. Stress Echo Wall motion Data Resting WM Intermediate WM Stress WM Resting Wall Motion Wall Motion Stress All segments Normal. All segments Hyperkinetic. Ejection Fraction 55 %. Ejection Fraction 70 %. Stress Results Heart rate response: Appropriate Blood pressure response: Normal resting blood pressure-appropriate response Arrhythmias: Isolated ventricular couplet during recovery Functional capacity: Decreased Stopped secondary to: Dyspnea. EKG Data Baseline ECG: Sinus Bradycardia. Peak exercise ECG: No Obvious EKG Changes. Symptoms with Stress The patient complained of chest discomfort pretest, during exercise, and recovery. Doppler Measurements & Calculations TR max esther: 190.5 cm/sec TR max P.5 mmHg Interpretation Summary 1. Technically difficult study 2. Contrast injection performed 3. Negative (adequate) stress echocardiogram Ordering Physician: Simone Lazo Referring Physician: Marco Lou Performed By: Gertrude Osorio RDCS
[2019-07-19] MEDS: Pregabalin 75 MG Capsule 150 MG PO (09:05)
[2019-07-19] MEDS: amLODIPine 10 MG Tablet PO (09:09)
[2019-07-19] MEDS: Estrogens,Conj. 1.25 MG Tablet PO (09:09)
--- NOTE | 2019-07-19 10:25 | DCINST_ITS ---
- Discharge Diagnoses Current Active Problems: Current Active and Chronic Problems (Last Reviewed 07/19/19 @ 04:[address] Simone Lazo MD) Chest pain at rest (Acute) You will use the following diet at home:: Calorie/Carbohydrate Controlled (specify 1200, 1400, etc) Discharge Activity: Return to Normal Activity Call your doctor if you observe: Shortness of breath, Dizziness, Fainting spells, Chest pain Allergies/Adverse Reactions: Allergies codeine Allergy (Verified 07/19/19 01:45) Itching lisinopril Allergy (Verified 07/19/19 01:45) Angioedema Medications to take at Discharge Estrogens, Conjugated [Premarin] 1.25 mg PO DAILY 04/23/14 amlodipine 10 mg tablet 10 mg PO QDAY 09/08/17 Levothyroxine [Synthroid] 100 mcg PO DAILY 04/24/19 Pregabalin [Lyrica] 150 mg PO BID 04/24/19 Testosterone 1 tab PO DAILY 04/24/19 cycloBENZAPRine HCl [Flexeril] 10 mg PO TID PRN #20 tab 07/11/19 Primary Care Physician: Rubina Villalta MD [Primary Care Provider] - Please follow up with your Primary Care Physician in: 1 Week Test Results: Test results from this visit will be discussed in further detail at your follow- up appointment, if applicable. Proposed Discharge Date: 07/19/19
--- NOTE | 2019-07-19 10:27 | PCM.DC.SUM ---
<Beverly Kathleen - Last Filed: 07/19/19 10:35> Discharge Date and Diagnosis Date of Admission: 07/19/19 Date of Discharge: 07/19/19 - Primary Discharge Diagnosis Active and Suspected Problems (Last Reviewed 07/19/19 @ 04:[address] Simone Lazo MD) 1. Musculoskeletal chest pain 2. Polysubstance abuse 3. Tobacco dependence 4. Hypertension 5. Hypothyroidism 6. Morbid obesity - Secondary Discharge Diagnosis Chronic Problems (Last Reviewed 07/19/19 @ 04:[address] Simone Lazo MD) Excessive somnolence disorder (Chronic) Illicit drug use, continuous (Chronic) BMI 40.0-44.9, adult (Chronic) ANNETTE (obstructive sleep apnea) (Chronic) Hypertension (Chronic) Hypothyroidism (acquired) (Chronic) previously treated for hyperthyroidism with medication History of appendectomy (Chronic) History of hysterectomy (Chronic) 2013 History of tubal ligation (Chronic) Abnormal EKG (Chronic) ADHD (attention deficit hyperactivity disorder) (Chronic) Labyrinthitis (Chronic) Vertigo (Chronic) Depression (Chronic) Anxiety disorder (Chronic) Hospital Course and Treatment Imaging Results: Diagnostic Data Chest X-Ray 07/19/19 01:48 IMPRESSION: No acute findings on this portable exam. Follow-up as clinically indicated. at 0233 Reported and signed by: Eugenia Arellano MD Electronically Signed: Eugenia Arellano MD at 2:33 EST Tel , Service support , Operations: None Procedures: Stress test Summary of Care Provided: The patient is a 49 year old F admitted 07/19/2019 due to chest pain. 1. Musculoskeletal chest pain- troponin negative. EKG without ST-T changes. Patient underwent stress echo which demonstrated an EF of 55%, negative for ischemia. Discussed with patient she may take tylenol or ibuprofen for musculoskeletal pain. Follow-up with primary care in 1 week. 2. Polysubstance abuse-tox screen positive for opiates, cocaine and cannabinoids. 3. Tobacco dependence-encourage cessation. 4. Hypertension-stable, continue amlodipine regimen. 5. Hypothyroidism-continue Synthroid regimen. 6. Morbid obesity- encouraged diet and lifestyle modifications. General: Alert, Oriented x3, Cooperative HEENT: Atraumatic, PERRLA, EOMI, Normocephalic Neck: Supple, No JVD, Negative Carotid Bruits Lungs: Clear to auscultation, Normal air movement, No rhonchi, No wheeze, No rales Cardiovascular: Regular rate, Regular Rhythm, Normal S1, Normal S2, No murmurs Abdomen: Bowel Sounds Present, Soft, Non Tender Extremities: No edema, Capillary Refill Less than 3 Seconds Skin: No rashes, No breakdown Musculoskeletal: No Tenderness to Palpation of Joints or Extremities Neurological: Cranial nerves II-XII grossly intact Psych/Mental Status: Normal Affect, Appropriate Patient seen and examined prior to discharge. Physical assessment as noted above. Patient is stable for discharge with follow up recommendations as noted above. This patient was seen by ML Barragan under the supervision of Dr. Chua. - Physical Exam Vitals/I&O's: Vital Signs Temp Pulse Resp BP Pulse Ox 97.5 F L 62 18 129/75 H 96 07/19/19 09:05 07/19/19 09:05 07/19/19 09:05 07/19/19 09:05 07/19/19 09:05 Oxygen Delivery Method Room Air Weight: 250 lb 14.4 oz Body Mass Index (BMI) 43.0 Intake and Output for Last 24 Hours 07/17/19 07/18/19 07/19/19 23:59 23:59 23:59 Intake Total 100 / 100 Balance 100 / 100 Laboratory Results 07/19/19 01:50: WBC 7.6, RBC 4.88, Hgb 14.1, Hct 43.0, MCV 88.1, MCH 28.9, MCHC 32.8, RDW Std Deviation 39.5, RDW Coeff of Eulalia 12.2, Plt Count 269, MPV 10.3, Immature Gran % (Auto) 0.400, Neut % (Auto) 50.0, Lymph % (Auto) 41.7 H, Sanborn % (Auto) 5.8, Eos % (Auto) 1.2, Baso % (Auto) 0.9, Absolute Neuts (auto) 3.8, Absolute Lymphs (auto) 3.16, Nucleated RBC % 0 07/19/19 01:50: PT 11.8, INR 0.9 07/19/19 01:50: Sodium 140, Potassium 3.4 L, Chloride 107, Carbon Dioxide 27.0, Anion Gap 6, BUN 7, Creatinine 1.02, Estim Creat Clear Calc 58.88, Est GFR (MDRD) Af Amer 75, Est GFR (MDRD) Non-Af 62, BUN/Creatinine Ratio 6.9 L, Glucose 124 H, Calcium 9.0, Troponin I < 0.015 07/19/19 01:50: D-Dimer Quant (PE/DVT) 0.41 07/19/19 04:28: Urine Opiates Screen POSITIVE H, Urine Methadone Screen NEGATIVE, Ur Barbiturates Screen NEGATIVE, Ur Phencyclidine Scrn NEGATIVE, Ur Amphetamines Screen NEGATIVE, U Methamphetamin-MDMA NEGATIVE, U Benzodiazepines Scrn NEGATIVE, Urine Cocaine Screen POSITIVE H, U Cannabinoids Screen POSITIVE H, Ur Drug Screen Comment 07/19/19 04:48: Troponin I < 0.015, Triglycerides 64, Cholesterol 187, LDL Cholesterol 89, VLDL Cholesterol 13, HDL Cholesterol 85 07/19/19 09:15: Troponin I < 0.015 Current Medications Acetaminophen (Tylenol) 650 mg PO Q6H PRN PRN PRN Reason: Pain Score 1-10/Temp > 100.7 F Amlodipine Besylate (Norvasc) 10 mg PO DAILY [facility] Last Admin: 07/19/19 09:09 Dose: 10 mg Documented by: Aspirin (Ecotrin) 81 mg PO DAILY@0800 [facility] Last Admin: 07/19/19 05:35 Dose: 81 mg Documented by: Cyclobenzaprine HCl (Flexeril) 10 mg PO TID PRN PRN PRN Reason: MS Estrogens Conjugated (Premarin) 1.25 mg PO DAILY [facility] Last Admin: 07/19/19 09:09 Dose: 1.25 mg Documented by: Glucagon () 1 mg IM .X1 PRN PRN Reason: Hypoglycemia Dextrose (Dextrose 10%-Water) 250 mls @ 999 mls/hr IV .Q16M PRN; Protocol PRN Reason: HYPOGLYCEMIA Sodium Chloride () 250 mls @ 15 mls/hr IV .[id number] PRN PRN Reason: Saline Flush Sodium Chloride () 250 mls @ 15 mls/hr IV .[id number] PRN PRN Reason: Additional IVPB Infusion Levothyroxine Sodium (Synthroid) 100 mcg PO DAILY@0600 [facility] Last Admin: 07/19/19 05:35 Dose: 100 mcg Documented by: Morphine Sulfate () 2 mg IV Q3H PRN PRN PRN Reason: Pain Score 6-10/10 Last Admin: 07/19/19 09:05 Dose: 2 mg Documented by: Nicotine (Nicoderm Cq (Pbkc)) 21 mg TRANSDERM. DAILY [facility] Nitroglycerin (Nitrostat) 0.4 mg SUBLINGUAL Q5M PRN PRN Reason: CARDIAC/CHEST PAIN Last Admin: 07/19/19 04:19 Dose: 1 tab Documented by: Ondansetron HCl (Zofran) 4 mg IV Q8H PRN PRN PRN Reason: NAUSEA/VOMITING Pregabalin (Lyrica) 150 mg PO BID [facility] Last Admin: 07/19/19 09:05 Dose: 150 mg Documented by: Sodium Chloride () 10 - 40 ml IV UD PRN PRN Reason: SALINE FLUSH Last Admin: 07/19/19 05:02 Dose: 20 ml Documented by: Discharge Diet: 1800 Calorie Control Diet Discharge Activity: Return to Normal Activity Call your doctor if you observe: Shortness of breath, Dizziness, Fainting spells, Chest pain Home Medications: Medications to take at Discharge Estrogens, Conjugated [Premarin] 1.25 mg PO DAILY 04/23/14 amlodipine 10 mg tablet 10 mg PO QDAY 09/08/17 Levothyroxine [Synthroid] 100 mcg PO DAILY 04/24/19 Pregabalin [Lyrica] 150 mg PO BID 04/24/19 Testosterone 1 tab PO DAILY 04/24/19 cycloBENZAPRine HCl [Flexeril] 10 mg PO TID PRN #20 tab 07/11/19 Primary Care Physician: Rubina Villalta MD [Primary Care Provider] - Please follow up with your Primary Care Physician in: 1 Week Disposition: Home Minutes spent on discharge:: 35 Patient Condition:: Stable Medical Necessity - Tobacco Use Smoking Status: Current every day smoker Tobacco Use: Cigarettes Meaningful Use Info Meaningful Use Diagnoses (Choose all that apply): None applicable <Balaji Chua - Last Filed: 03/03/20 14:36> Discharge Date and Diagnosis - Secondary Discharge Diagnosis Chronic Problems (Last Reviewed 07/19/19 @ 04:[address] Simone Lazo MD) Excessive somnolence disorder (Chronic) Illicit drug use, continuous (Chronic) BMI 40.0-44.9, adult (Chronic) ANNETTE (obstructive sleep apnea) (Chronic) Hypertension (Chronic) Hypothyroidism (acquired) (Chronic) previously treated for hyperthyroidism with medication History of appendectomy (Chronic) History of hysterectomy (Chronic) 2014 History of tubal ligation (Chronic) Abnormal EKG (Chronic) ADHD (attention deficit hyperactivity disorder) (Chronic) Labyrinthitis (Chronic) Vertigo (Chronic) Depression (Chronic) Anxiety disorder (Chronic) Hospital Course and Treatment Imaging Results: 07/19/19 05:55 Stress Test Echo W/Contrast [ECHO] AM (NON MEDS) Operations: None Procedures: Stress test Summary of Care Provided: Patient seen and examined independently. Data reviewed. I agree with the above note by the nurse practitioner. The patient is a 49 year old F presents with chest pain. Patient underwent cardiac work-up, including a stress echocardiogram, work-up from cardiac standpoint was negative. On exam, patient had reproducible anterior chest wall tenderness. Patient also did have some slight back pain but mostly is anterior. Explained the patient that this is likely costochondritis and with time that will get better. Patient can take acetaminophen as well as ibuprofen. Patient seemed to have wanted something more though he did not specify directly. Patient did have positive toxicology screen for opiates, though this was taken after she did receive morphine in the emergency room, cocaine and cannabinoids. [] - Physical Exam Vitals/I&O's: Vital Signs Temp Pulse Resp BP Pulse Ox 36.4 C L 62 18 129/75 H 96 07/19/19 09:05 07/19/19 09:05 07/19/19 09:05 07/19/19 09:05 07/19/19 09:05 Oxygen Delivery Method Room Air Weight: 113.806 kg Body Mass Index (BMI) 43.0 Intake and Output for Last 24 Hours 07/17/19 07/18/19 07/19/19 23:59 23:59 23:59 Intake Total 100 / 100 Balance 100 / 100 General: Alert, No apparent distress HEENT: Atraumatic, Normocephalic Oral: Moist Mucosa, No Gingival or Mucosal Lesions/ Ulcerations Neck: No Nodes, Trachea Midline Lungs: Clear to auscultation, Normal air movement, No rhonchi, No wheeze Cardiovascular: Regular rate, Regular Rhythm, Normal S1, Normal S2 Laboratory Results 07/19/19 01:50: WBC 7.6, RBC 4.88, Hgb 14.1, Hct 43.0, MCV 88.1, MCH 28.9, MCHC 32.8, RDW Std Deviation 39.5, RDW Coeff of Eulalia 12.2, Plt Count 269, MPV 10.3, Immature Gran % (Auto) 0.400, Neut % (Auto) 50.0, Lymph % (Auto) 41.7 H, Sanborn % (Auto) 5.8, Eos % (Auto) 1.2, Baso % (Auto) 0.9, Absolute Neuts (auto) 3.8, Absolute Lymphs (auto) 3.16, Nucleated RBC % 0 07/19/19 01:50: PT 11.8, INR 0.9 07/19/19 01:50: Sodium 140, Potassium 3.4 L, Chloride 107, Carbon Dioxide 27.0, Anion Gap 6, BUN 7, Creatinine 1.02, Estim Creat Clear Calc 58.88, Est GFR (MDRD) Af Amer 75, Est GFR (MDRD) Non-Af 62, BUN/Creatinine Ratio 6.9 L, Glucose 124 H, Calcium 9.0, Troponin I < 0.015 07/19/19 01:50: D-Dimer Quant (PE/DVT) 0.41 07/19/19 04:28: Urine Opiates Screen POSITIVE H, Urine Methadone Screen NEGATIVE, Ur Barbiturates Screen NEGATIVE, Ur Phencyclidine Scrn NEGATIVE, Ur Amphetamines Screen NEGATIVE, U Methamphetamin-MDMA NEGATIVE, U Benzodiazepines Scrn NEGATIVE, Urine Cocaine Screen POSITIVE H, U Cannabinoids Screen POSITIVE H, Ur Drug Screen Comment 07/19/19 04:48: Troponin I < 0.015, Triglycerides 64, Cholesterol 187, LDL Cholesterol 89, VLDL Cholesterol 13, HDL Cholesterol 85 07/19/19 09:15: Troponin I < 0.015 Discharge Diet: 1800 Calorie Control Diet Discharge Activity: Return to Normal Activity Call your doctor if you observe: Shortness of breath, Dizziness, Fainting spells, Chest pain Disposition: Home Patient Condition:: Stable Meaningful Use Info Meaningful Use Diagnoses (Choose all that apply): None applicable Code Visit OBSV E&M: 14626 Observation care discharge
--- NOTE | 2019-07-19 11:29 | PHA.DC.MR ---
Pharmacy Service has performed discharge medication reconciliation for this patient. No new medications at time of discharge. Medications reviewed are previously reported home medications. The patient's discharge medication list was reviewed for discrepancies and discrepancies were resolved. Home Medications Estrogens, Conjugated [Premarin] 1.25 mg PO DAILY 04/23/14 amlodipine 10 mg tablet 10 mg PO QDAY 09/08/17 Levothyroxine [Synthroid] 100 mcg PO DAILY 04/24/19 Pregabalin [Lyrica] 150 mg PO BID 04/24/19 Testosterone 1 tab PO DAILY 04/24/19 cycloBENZAPRine HCl [Flexeril] 10 mg PO TID PRN #20 tab 07/11/19
== END 2019-07-19 10:26 | disposition home or self-care (01) ==
LOC: ED 02:11 → PCU 03:50
PROVIDERS: Admitting Provider Hospitalist; Emergency Provider Emergency Medicine; PCP Internal Medicine
DX: R07.89 Other chest pain (principal); I10 Essential (primary) hypertension; E03.9 Hypothyroidism, unspecified; E66.01 Morbid (severe) obesity due to excess calories; F19.10 Other psychoactive substance abuse, uncomplicated; G47.33 Obstructive sleep apnea (adult) (pediatric); R00.0 Tachycardia, unspecified; F41.9 Anxiety disorder, unspecified; F32.9 Major depressive disorder, single episode, unspecified; F17.210 Nicotine dependence, cigarettes, uncomplicated; Z79.899 Other long term (current) drug therapy; Z68.41 Body mass index [BMI] 40.0-44.9, adult; Z71.3 Dietary counseling and surveillance
CPT/HCPCS: 36415; 71045; 80048; 80061; 80307; 84484; 85025; 85379; 85610; 93005; 93017; 93350; 96374; 96375; 96376; 99218; 99285; 99406; Q9957; A4216; C8928; G0378; J2405

== ENCOUNTER 2019-08-23 20:10 | Emergency (ER) | payer MEDICAID, SELFPAY ==
[2019-07-19 03:48] VITALS: BMI 43.0
[2019-08-23 20:10] VITALS: BP 154/91; PULSE 77; RESP 28; TEMP 36.2; O2SAT 98; BMI 42.9
--- NOTE | 2019-08-23 20:26 | EKG12_ITS ---
Test Reason : CP Blood Pressure : / mmHG Vent. Rate : 071 BPM Atrial Rate : 071 BPM P-R Int : 168 ms QRS Dur : 090 ms QT Int : 388 ms P-R-T Axes : 043 007 064 degrees QTc Int : 421 ms Normal sinus rhythm Minimal voltage criteria for LVH, may be normal variant Borderline ECG Confirmed by OLIVERIO CHAVEZ, ROSSY ([id number]), medical transcription editor LUCI COLÓN ([id number]) on 08/25/2019 9:43:36 AM Referred By: JUAN Confirmed By:ROSSY DURON MD
--- NOTE | 2019-08-23 20:27 | ED.VIS.GEN ---
History of Present Illness Chief Complaint: Chest Other Narrative: Patient is a 49-year-old female who presents with chief complaint of lung pain. This is been present since yesterday. She complains of pain on both sides of the anterior chest and upper back. This is worse with movement of her arms or changes in position. She has difficulty characterizing it. She describes it as dull aching and burning. She also complains of fatigue. She is not short of breath. She denies fever cough vomiting diarrhea or any infectious symptoms. She did drive back to [place] from [place] in early July. She is also on estrogen due to a history of hysterectomy. She denies prior history of DVT or pulmonary embolism. She denies any pain or swelling in the legs. She has no history of coronary disease. She does have multiple prior ER visits for chest pain and was admitted last month. She had a negative stress echocardiogram. Past Medical History - Allergies and Home Meds Allergies/Adverse Reactions: Allergies codeine Allergy (Verified 07/19/19 01:45) Itching lisinopril Allergy (Verified 07/19/19 01:45) Angioedema Primary Care Physician: Rubina Villalta MD [Primary Care Provider] - Past Medical History: - - Hypertension, hypothyroidism, anxiety Surgical History: noncontributory Smoking Status: Current every day smoker Review of Systems All systems negative except as indicated General: Denies: Fever Eyes: Denies: Visual changes - bilaterally ENT: Denies: Bilateral ear pain Cardiovascular: Reports: Chest pain Respiratory: Denies: Dyspnea, Cough, Sputum Gastrointestinal: Denies: Abdominal pain, Nausea, Vomiting, Diarrhea Musculoskeletal: Denies: Myalgias, Extremity Pain Skin: Denies: Rash Neurological: Denies: Headache Physical Exam Vital Signs/Narrative: Vital Signs Temp Pulse Resp BP Pulse Ox 08/23/19 20:10 97.1 F L 77 28 H 154/91 H 98 Inital Vital Signs reviewed: Yes General: Well nourished Head: Normocephalic Eyes: EOMI ENT: Moist mucous membranes Neck: Supple Cardiovascular: Regular rate, Regular rhythm Respiratory: No distress, CTA bilaterally Abdomen: Soft, Nontender Extremities: Nontender, No edema Skin: Normal color Neurological: Alert Psychological: Normal affect Diagnostic/Tx/Re-eval Impressions Chest X-Ray 08/23/19 21:15 IMPRESSION: Mild perihilar and bibasilar pulmonary infiltrates possible pneumonia including atypical viral pneumonia, slight prominence of the pulmonary vascularity pulmonary congestion cannot be excluded Electronically Signed: Mansoor Bruner, at 22:11 EDT Tel , Service support , 08/23/19 21:15 Chest PA and Lateral [RAD] Stat Laboratory Results 08/23/19 08/23/19 08/23/19 20:38 20:38 20:38 WBC 10.1 RBC 4.63 Hgb 13.2 Hct 41.2 MCV 89.0 MCH 28.5 MCHC 32.0 RDW Std Deviation 41.5 RDW Coeff of Eulalia 12.8 Plt Count 308 MPV 10.6 Immature Gran % (Auto) 0.500 Neut % (Auto) 52.4 Lymph % (Auto) 36.3 Andrews % (Auto) 7.7 Eos % (Auto) 2.1 Baso % (Auto) 1.0 Absolute Neuts (auto) 5.3 Absolute Lymphs (auto) 3.66 Nucleated RBC % 0 D-Dimer Quant (PE/DVT) 0.28 Sodium 140 Potassium 4.3 Chloride 108 H Carbon Dioxide 29.0 Anion Gap 3 L BUN 16 Creatinine 1.22 H Estim Creat Clear Calc 49.23 Est GFR (MDRD) Af Amer 61 Est GFR (MDRD) Non-Af 50 L BUN/Creatinine Ratio 13.1 Glucose 138 H Calcium 8.7 Troponin I < 0.015 - Medical Decision Making EKG shows normal sinus rhythm at a rate of 71 with no acute ischemic changes. Labs as above are unremarkable. Chest x-ray shows increased perihilar and bibasilar markings consistent with possible atypical or viral pneumonia. Given the setting of the current novel 2019 coronavirus patient was advised that COVID-19 is a possibility. She was advised that she should quarantine. We will also treat for possible atypical pneumonia with azithromycin. Patient was given clear instructions on specific signs and symptoms to monitor for and understands to return for new or worsening symptoms. All questions answered at bedside. Patient agreeable to this plan was discharged home. ED Disposition - Plan for ED Patient: Disposition: Home or Assisted Living Diagnosis: Pneumonia, Suspected 2019 novel coronavirus infection Instructions: Walking Pneumonia, ED Chest Pain NonCardiac Prescriptions: Azithromycin [Zithromax Z-Nikunj] 250 mg PO UD #1 box Prescription Printed Referrals: Rubina Villalta MD [Primary Care Provider] -
[2019-08-23 20:35] VITALS: BP 120/76; PULSE 65; RESP 22; TEMP 36.2; O2SAT 99
[2019-08-23] MEDS: Aspirin 81 MG TAB.CHEW 324 MG PO (20:37)
[2019-08-23 20:50] LABS: Absolute Lymphocyte Count 3.66 X10^3/uL (0.83-4.51); Absolute Neutrophil Count 5.3 X10^3/uL (2.0-7.7); Eosinophil# 0.21 X10^3/uL; Eosinophils% 2.1 % (0-5); Hematocrit 41.2 % (37-47); Hemoglobin 13.2 g/dL (12.0-15.0); Lymphocyte # 3.66 X10^3/ul (4.0); Lymphocyte % 36.3 % (19-41); Mean Corpuscular Hgb 28.5 pg (27.0-32.0); Mean Platelet Vol. 10.6 fl (6.2-12.0); Monocyte# 0.78 X10^3/uL; Monocyte% 7.7 % (0-10); NRBC Flagged by Analyzer 0 % (0-5); Neutrophil # 5.28 X10^3/uL (2.7-7.7); Neutrophil % 52.4 % (47-70); Platelet Count 308 K/mm3 (150-450); RBC Distribution Width CV 12.8 % (11.6-14.6); RBC Distribution Width SD 41.5 fl (35.1-43.9); Red Blood Count 4.63 M/mm3 (4.2-5.4); White Blood Count 10.1 K/mm3 (4.4-11.0)
[2019-08-23 21:02] LABS: D-Dimer Quantitative (DVT/PE) 0.28 FEU/ug/m (0.27-0.49)
[2019-08-23 21:12] VITALS: BP 105/58; PULSE 73; RESP 16; TEMP 36.8; O2SAT 99
--- NOTE | 2019-08-23 21:15 | RAD_ITS ---
STUDY: X-RAY CHEST REASON FOR EXAM: Female, 49 years old. LUNG PAIN, UPPER BACK PAIN AND SHORTNESS OF BREATH SINCE YESTERDAY TECHNIQUE: PA and lateral chest COMPARISON: 07/19/2019. FINDINGS: Mild perihilar and bibasilar pulmonary infiltrates.. There is no demonstrated pleural abnormality. There is stable borderline cardiomegaly. Normal mediastinum and grey. There is slight prominence of the pulmonary vascularity. Normal visualized aortic arch and descending thoracic aorta. Normal visualized thoracic spine. Normal visualized ribs, clavicles, and shoulders. There is no demonstrated abnormality of the visualized soft tissue structures of the upper abdomen. RAD/Chest PA and Lateral IMPRESSION: Mild perihilar and bibasilar pulmonary infiltrates possible pneumonia including atypical viral pneumonia, slight prominence of the pulmonary vascularity pulmonary congestion cannot be excluded Electronically Signed: Mansoor Bruner, at 22:11 EDT Tel , Service support ,
[2019-08-23 21:34] LABS: Anion Gap 3 (5-15); BUN 16 mg/dL (7-18); BUN/Creat Ratio 13.1 RATIO (10-20); Calcium,Total 8.7 mg/dL (8.5-10.1); Chloride 108 mmol/L (98-107); Creatinine, Serum 1.22 mg/dL (0.55-1.02); EST Glomerular Filtration Rate 50 mL/min (>60); Est Glom Filt Rate - Afr Amer 61 mL/min (>60); Estimated Creatinine Clearance 49.23 ml/min; Glucose 138 mg/dL (74-106); Potassium 4.3 mmol/L (3.5-5.1); Sodium Level 140 mmol/L (136-145)
[2019-08-23 22:00] VITALS: BP 104/71; PULSE 56; RESP 17; TEMP 36.4; O2SAT 99
[2019-08-23] MEDS: Ketorolac 60 MG/2 ML Vial IM (22:12)
[2019-08-23 22:21] VITALS: BP 101/61; PULSE 60; RESP 20; O2SAT 100
== END 2019-08-23 22:47 | disposition home or self-care (01) ==
PROVIDERS: Emergency Provider Emergency Medicine; PCP Internal Medicine
DX: J18.9 Pneumonia, unspecified organism (principal); E03.9 Hypothyroidism, unspecified; F41.9 Anxiety disorder, unspecified; I10 Essential (primary) hypertension; F17.200 Nicotine dependence, unspecified, uncomplicated; Z88.8 Allergy status to other drugs, medicaments and biological substances
CPT/HCPCS: 71046; 80048; 84484; 85025; 85379; 93005; 96372; 96374; 99284; A4216

== ENCOUNTER 2019-08-28 20:45 | Emergency (ER) | payer MEDICAID, SELFPAY ==
[2019-08-28 20:46] VITALS: BP 144/96; PULSE 104; RESP 16; TEMP 35.7; O2SAT 98; BMI 42.9
--- NOTE | 2019-08-28 21:18 | EKG12_ITS ---
Test Reason : DYSRHYTHMIA Blood Pressure : / mmHG Vent. Rate : 088 BPM Atrial Rate : 088 BPM P-R Int : 178 ms QRS Dur : 088 ms QT Int : 380 ms P-R-T Axes : 048 -01 083 degrees QTc Int : 459 ms Normal sinus rhythm Nonspecific T wave abnormality Abnormal ECG Confirmed by OLIVERIO CHAVEZ, ROSSY ([id number]), scientific publications editor LUCI COLÓN ([id number]) on 08/31/2019 8:45:31 AM Referred By: ALEJANDRO Confirmed By:ROSSY DURON MD
--- NOTE | 2019-08-28 21:18 | RAD_ITS ---
STUDY: X-RAY CHEST REASON FOR EXAM: Female, 49 years old. LIGHT HEADED , BACK PAIN, SOB, ABDOMEN PAIN TECHNIQUE: Single AP portable view of the chest. COMPARISON: Prior study of 08/23/2019 FINDINGS: quality assurance monitor leads are present. The lungs are clear and expanded. There is no demonstrated pleural abnormality. Normal size heart. Normal mediastinum and grey. Normal visualized pulmonary arteries. Normal visualized aortic arch and descending thoracic aorta. There are diffuse degenerative changes of the visualized thoracic spine. Normal visualized ribs, clavicles, and shoulders. There is no demonstrated abnormality of the visualized soft tissue structures of the upper abdomen. RAD/Chest 1 View (Portable) IMPRESSION: Degenerative changes of the thoracic spine. No acute cardiopulmonary disease process is seen. Electronically Signed: Dash Vázquez MD at 22:07 EDT , Service support ,
[2019-08-28 21:25] LABS: Absolute Lymphocyte Count 3.29 X10^3/uL (0.83-4.51); Absolute Neutrophil Count 4.2 X10^3/uL (2.0-7.7); Basophil# 0.06 X10^3/uL; Basophil% 0.7 % (0-1); Eosinophil# 0.15 X10^3/uL; Eosinophils% 1.8 % (0-5); Hematocrit 41.8 % (37-47); Hemoglobin 13.4 g/dL (12.0-15.0); Lymphocyte # 3.29 X10^3/ul (4.0); Lymphocyte % 39.4 % (19-41); Mean Corp Hgb Conc 32.1 g/dL (32-36); Mean Corpuscular Hgb 28.3 pg (27.0-32.0); Mean Corpuscular Volume 88.2 fL (81-99); Mean Platelet Vol. 10.5 fl (6.2-12.0); Monocyte# 0.68 X10^3/uL; Monocyte% 8.1 % (0-10); NRBC Flagged by Analyzer 0 % (0-5); Neutrophil # 4.17 X10^3/uL (2.7-7.7); Neutrophil % 49.9 % (47-70); Platelet Count 262 K/mm3 (150-450); RBC Distribution Width CV 12.6 % (11.6-14.6); RBC Distribution Width SD 40.5 fl (35.1-43.9); Red Blood Count 4.74 M/mm3 (4.2-5.4); White Blood Count 8.4 K/mm3 (4.4-11.0)
[2019-08-28 21:34] LABS: Anion Gap 5 (5-15); BUN 10 mg/dL (7-18); BUN/Creat Ratio 9.5 RATIO (10-20); Chloride 106 mmol/L (98-107); Creatinine, Serum 1.05 mg/dL (0.55-1.02); EST Glomerular Filtration Rate 60 mL/min (>60); Est Glom Filt Rate - Afr Amer 72 mL/min (>60); Glucose 130 mg/dL (74-106); Potassium 3.8 mmol/L (3.5-5.1); Sodium Level 138 mmol/L (136-145)
[2019-08-28 21:54] VITALS: BP 159/102; PULSE 83; RESP 18; TEMP 36.8; O2SAT 98
--- NOTE | 2019-08-28 22:51 | ED.DCSUM_ITS ---
- ER Visit Summary Date of Service: 08/28/19 Chief Complaint: Upper quadrant abdominal pain History of Present Illness: The patient is a 49 F of hypertension and hypothyroidism. Prior hysterectomy and appendectomy. Patient states that she was treated for pneumonia and just finished a Zithromax Z-Nikunj. States that for the last 3 days she has had some mild left upper quadrant abdominal pain with diarrhea. Denies any nausea vomiting. No fever. No melena. No hematemesis. No dysuria. Physical Examination: Vital signs are stable afebrile. Pulse ox 90% on room air no signs hypoxia. H EENT exam nonreactive neck nontender no JVD. No lymphadenopathy. Lungs clear to auscultation bilaterally. Heart regular rhythm no murmur. Abdomen soft. Nondistended. Normal bowel sounds. No peritoneal signs. No pulsatile masses. No splenomegaly appreciated. Patient is moving all 4 extremities. Calves are nontender without edema or cords. Neurologically she is awake alert with no focal motor deficits. Test Results: Chest x-ray portable 1 view read both myself and radiologist shows no acute abnormality. And no change from prior chest x-ray about 5 days ago. CBC normal. White count 8. Hemoglobin 13. No bands. Chemistries normal normal creatinine and gap. Emergency Department Course and Treatment: Typical abdominal pain with some diarrhea. This may be secondary to the recent Zithromax that she will use on a fever treated for possible pneumonia. Clinically her abdomen is benign. Repeat exam patient is doing well at 10:50 PM. She is comfortable being discharged home. Exam is benign. Treatment Plan: Outpatient follow-up if not improving. Return if worse. Disposition: Discharge Impression: Left upper quadrant dull pain of uncertain etiology. This note was generated with [employer] dictation software. It may contain incorrect words, spelling, and punctuation that were not noted in review of the chart prior to signing ED Disposition - Plan for ED Patient: Referrals: Rubina Villalta MD [Primary Care Provider] -
--- NOTE | 2019-08-28 22:55 | ED.DEP ---
ED Disposition - Plan for ED Patient: Disposition: Home or Assisted Living Instructions: ED Abdominal Pain Unkn Cause Fem Referrals: Rubina Villalta MD [Primary Care Provider] - 3-5 Days if not improving Additional Instructions: May be from the recent antibiotic you are on. Your tests and x-ray tonight were normal. Follow-up with your doctor if not improving. If it is from the antibiotic it should progressively improve over the next several days.
[2019-08-28 23:01] VITALS: BP 139/87; PULSE 76; RESP 16; O2SAT 98
== END 2019-08-28 23:01 | disposition home or self-care (01) ==
PROVIDERS: Emergency Provider Emergency Medicine; PCP Internal Medicine
DX: R10.12 Left upper quadrant pain (principal); R19.7 Diarrhea, unspecified; E03.9 Hypothyroidism, unspecified; I10 Essential (primary) hypertension; Z90.710 Acquired absence of both cervix and uterus; Z72.0 Tobacco use; Z87.01 Personal history of pneumonia (recurrent)
CPT/HCPCS: 71045; 80048; 85025; 93005; 99284; A4216

== ENCOUNTER 2019-11-16 15:16 | Emergency (ER) | payer MEDICAID, SELFPAY ==
[2019-11-16 15:17] VITALS: BP 139/88; PULSE 82; RESP 17; TEMP 36.8; O2SAT 98; BMI 44.6
[2019-11-16 16:21] LABS: Absolute Lymphocyte Count 3.22 X10^3/uL (0.83-4.51); Basophil# 0.06 X10^3/uL; Basophil% 0.9 % (0-1); Eosinophil# 0.26 X10^3/uL; Eosinophils% 3.7 % (0-5); Hematocrit 41.1 % (37-47); Hemoglobin 13.1 g/dL (12.0-15.0); Lymphocyte # 3.22 X10^3/ul (4.0); Lymphocyte % 46.1 % (19-41); Mean Corp Hgb Conc 31.9 g/dL (32-36); Mean Corpuscular Hgb 28.5 pg (27.0-32.0); Mean Corpuscular Volume 89.3 fL (81-99); Mean Platelet Vol. 10.5 fl (6.2-12.0); Monocyte# 0.47 X10^3/uL; Monocyte% 6.7 % (0-10); NRBC Flagged by Analyzer 0 % (0-5); Neutrophil # 2.96 X10^3/uL (2.7-7.7); Neutrophil % 42.5 % (47-70); Platelet Count 267 K/mm3 (150-450); RBC Distribution Width CV 12.3 % (11.6-14.6); RBC Distribution Width SD 39.7 fl (35.1-43.9)
[2019-11-16 16:42] LABS: Bacteria 0 SEEN /hpf (None Seen); Mucous, Urine 0 SEEN /hpf (<or=2+); Red Blood Cells-Urine 0 SEEN /hpf (0-5); Squamous Epithelial Cells - UA 0 SEEN /hpf (5-10); White Blood Cells 0 SEEN /hpf (0-5)
[2019-11-16 16:44] LABS: ALB/GLOB Ratio 0.7 RATIO (0.9-2.4); AST(SGOT) 15 U/L (15-37); Alanine Aminotransfer ALT/SGPT 20 U/L (13-56); Albumin, Serum 3.2 g/dL (3.2-5.0); Alkaline Phosphatase 82 U/L (45-117); Anion Gap 3 (5-15); BUN 11 mg/dL (7-18); BUN/Creat Ratio 10.4 RATIO (10-20); Calcium,Total 8.8 mg/dL (8.5-10.1); Chloride 106 mmol/L (98-107); Creatinine, Serum 1.06 mg/dL (0.55-1.02); EST Glomerular Filtration Rate 59 mL/min (>60); Est Glom Filt Rate - Afr Amer 71 mL/min (>60); Estimated Creatinine Clearance 56.66 ml/min; Globulin 4.3 g/dL (2.2-4.2); Glucose 127 mg/dL (74-106); Lipase 127 U/L (73-393); Potassium 3.7 mmol/L (3.5-5.1); Protein, Total 7.5 g/dL (6.4-8.2); Sodium Level 137 mmol/L (136-145)
[2019-11-16 16:50] LABS: Color, Urine Yellow (Yellow); Glucose, Dipstick Normal (Normal); Ketone-Dipstick Negative (Negative); Leukocyte Esterase-Dipstick Negative /ul (Negative); Nitrite-Dipstick Negative (Negative); Occult Blood-Urine Negative /ul (Negative); Protein-Dipstick Negative (Negative); Urine Bilirubin Dipstick Negative (Negative); Urine Clarity Clear (Clear); Urine Urobilinogen Normal (Normal)
[2019-11-16 16:54] LABS: Internal QC Validated? YES +Cl - CLEAR BKGD; Pregnancy, Urine Negative Negative
[2019-11-16] MEDS: Mag Hydrox/Al Hydrox/Simeth 30 ML UDC PO (17:41)
--- NOTE | 2019-11-16 17:46 | ED.VIS.GEN ---
History of Present Illness Chief Complaint: Abd Pain Informant: Patient Onset: Days Timing: Intermittent Current Severity: Mild Maximum Severity: Mild Narrative: 49-year-old female presents with nausea and epigastric pain. This is been ongoing since Thursday and has been intermittent. She states that Thursday she was able to have a couple of drinks. She does not drink alcohol on a regular basis. She does take NSAIDs on a regular basis for chronic back pain she has a compression fracture. She is not had fever. She has no vomiting. No diarrhea or constipation. No black or bloody stools. Prior similar symptoms: No Recent Illness/Hospitalization: No Past Medical History - Allergies and Home Meds Allergies/Adverse Reactions: Allergies codeine Allergy (Verified 11/16/19 15:16) Itching lisinopril Allergy (Verified 11/16/19 15:16) Angioedema Primary Care Physician: Care Physician,No Primary [Primary Care Provider] - Prior records reviewed: Yes Surgical History: noncontributory Smoking Status: Current every day smoker Alcohol: Rare Drugs: None Review of Systems General: Denies: Chills, Fever Eyes: Denies: Visual changes - left, Visual changes - right Cardiovascular: Denies: Chest pain Respiratory: Denies: Dyspnea, Cough Gastrointestinal: Reports: Abdominal pain - Gastric pain Genitourinary: Denies: Dysuria Musculoskeletal: Denies: Myalgias, Arthralgias Skin: Denies: Rash Neurological: Denies: Headache, Weakness Physical Exam Vital Signs/Narrative: Vital Signs Temp Pulse Resp BP Pulse Ox 11/16/19 15:17 98.3 F 82 17 139/88 H 98 Inital Vital Signs reviewed: Yes General: Well nourished, Well developed, No Acute Distress Head: Normocephalic, Atraumatic Eyes: Perrl, EOMI. Negative for: Scleral icterus ENT: Moist mucous membranes Cardiovascular: Regular rate, Regular rhythm Respiratory: No distress Abdomen: Tender - Epiastric tenderness. Negative for: Guarding, Rebound tenderness Extremities: Negative for: Nontender Skin: Normal color Neurological: Alert, Oriented x3 Psychological: Normal affect ED Disposition - Plan for ED Patient: Disposition: Home or Assisted Living Diagnosis: Gastritis Prescriptions: Famotidine [Pepcid] 20 mg PO BID #28 tab Prescription Printed Ondansetron [Zofran Odt] 4 mg PO Q8H PRN PRN 7 Days #14 tab PRN Reason: Nausea Prescription Printed Referrals: Care Physician,No Primary [Primary Care Provider] -
[2019-11-16 18:23] VITALS: BP 160/80; PULSE 77; RESP 18; O2SAT 99
[2019-11-16 18:25] VITALS: BP 160/80; PULSE 74; RESP 18; O2SAT 97
== END 2019-11-16 18:25 | disposition home or self-care (01) ==
PROVIDERS: Emergency Provider Student in an Organized Health Care Education/Training Program
DX: K29.70 Gastritis, unspecified, without bleeding (principal); G89.29 Other chronic pain; F17.200 Nicotine dependence, unspecified, uncomplicated; Z88.8 Allergy status to other drugs, medicaments and biological substances; Z88.5 Allergy status to narcotic agent
CPT/HCPCS: 80053; 81001; 81025; 83690; 84484; 85025; 99284; A4216

== ENCOUNTER 2019-12-03 00:54 | Emergency (ER) | payer MEDICAID, SELFPAY ==
[2019-12-03 00:55] VITALS: BP 155/90; PULSE 100; RESP 18; TEMP 36.2; O2SAT 99; BMI 42.9
--- NOTE | 2019-12-03 01:05 | ED.DCSUM_ITS ---
History of Present Illness Chief Complaint: Abd Pain Narrative: 49-year-old female presents with epigastric pain. She was seen by [facility] for similar pain. She had lab work done which was all normal. I felt that at that time her symptoms were related to acid reflux or gastritis. She was placed on Pepcid and she states she felt better for a while. She states she has not been watching her diet as far as things that would upset her stomach. She is not had any fever. Denies diarrhea. No urinary complaints. He does not have chest pain. Prior similar symptoms: Yes Past Medical History - Allergies and Home Meds Allergies/Adverse Reactions: Allergies codeine Allergy (Verified 12/03/19 00:58) Itching lisinopril Allergy (Verified 12/03/19 00:58) Angioedema Primary Care Physician: Care Physician,No Primary [Primary Care Provider] - Prior records reviewed: Yes Surgical History: noncontributory Smoking Status: Current every day smoker Alcohol: None Drugs: None Review of Systems General: Denies: Chills, Fever, Sweats Eyes: Denies: Visual changes - bilaterally, Diplopia ENT: Denies: Rhinorrhea, Sore throat Cardiovascular: Denies: Chest pain, Palpitations Respiratory: Denies: Dyspnea, Cough Gastrointestinal: Reports: Abdominal pain - Epigastric Genitourinary: Denies: Dysuria Musculoskeletal: Denies: Myalgias Skin: Denies: Rash Neurological: Denies: Headache Physical Exam Vital Signs/Narrative: Vital Signs Temp Pulse Resp BP Pulse Ox 12/03/19 00:55 97.2 F L 100 18 155/90 H 99 Inital Vital Signs reviewed: Yes General: Well nourished, Well developed Head: Normocephalic, Atraumatic Eyes: Perrl. Negative for: Scleral icterus ENT: Moist mucous membranes Cardiovascular: Regular rate, Regular rhythm Respiratory: No distress, CTA bilaterally Abdomen: Soft, - - Mild tenderness to palpation epigastric area.. Negative for: Brunner's sign Skin: Normal color, No rash Neurological: Alert, Oriented x3 Psychological: Normal affect Diagnostic/Tx/Re-eval Clinical Impression(s) from Imaging Studies Abdomen/Pelvis CT 12/03/19 01:10 IMPRESSION: There is NO acute intra-abdominal abnormality. Electronically Signed: Pardeep Dickens MD at 2:17 EDT , Service support , Laboratory Data 12/03/19 12/03/19 12/03/19 01:30 01:30 01:30 WBC 7.9 RBC 4.57 Hgb 13.0 Hct 39.6 MCV 86.7 MCH 28.4 MCHC 32.8 RDW Std Deviation 38.1 RDW Coeff of [place] 11.9 Plt Count 292 MPV 10.4 Immature Gran % (Auto) 0.100 Neut % (Auto) 40.8 L Lymph % (Auto) 45.4 H [place] % (Auto) 9.1 Eos % (Auto) 3.8 Baso % (Auto) 0.8 Absolute Neuts (auto) 3.2 Absolute Lymphs (auto) 3.59 Nucleated RBC % 0 Sodium 137 Potassium 3.7 Chloride 103 Carbon Dioxide 28.0 Anion Gap 6 BUN 8 Creatinine 1.02 Estim Creat Clear Calc 58.88 Est GFR (MDRD) Af Amer 74 Est GFR (MDRD) Non-Af 62 BUN/Creatinine Ratio 7.8 L Glucose 114 H Calcium 8.8 Total Bilirubin 0.50 AST 18 ALT 19 Alkaline Phosphatase 71 Total Protein 7.8 Albumin 3.7 Globulin 4.1 Albumin/Globulin Ratio 0.9 Lipase 89 Urine Color Yellow Urine Clarity Clear Urine pH 6.0 Ur Specific [place] 1.010 Urine Protein Negative Urine Glucose (UA) Normal Urine Ketones Negative Urine Occult Blood Negative Urine Nitrite Negative Urine Bilirubin Negative Urine Urobilinogen Normal Ur Leukocyte Esterase Negative Urine RBC 0 SEEN Urine WBC 0 SEEN Ur Squamous Epith Cells 0-5 SEEN Urine Bacteria RARE Urine Mucus 0 SEEN - Medical Decision Making Patient presents with similar symptoms that she has had before however she states they are worsening. On exam she has mild epigastric tenderness. She does not have a Brunner sign. Blood work again is normal. I did CT her abdomen and pelvis which is also normal. She was given a GI cocktail. She was given Carafate for home. I recommended GI follow-up. Impression: 1. Epigastric pain ED Disposition - Plan for ED Patient: Disposition: Home or Assisted Living Diagnosis: Abdominal pain, Acid reflux disease Instructions: ED Abdominal Pain Unkn Cause Fem, ED ACID INDIGESTION Adult Prescriptions: Sucralfate [Carafate] 1 gm PO 4X/DAY PRN #30 udc PRN Reason: Indigestion Prescription Printed Referrals: Care Physician,No Primary [Primary Care Provider] -
--- NOTE | 2019-12-03 01:10 | CT_ITS ---
STUDY: CT ABDOMEN AND PELVIS WITH CONTRAST REASON FOR EXAM: Female, 49 years old. UPPER ABD PAIN RADIATES TO CHEST, HX HYSTERECTOMY, LAPAROSCOPIC OOPHORECTOMY, DAMAGED BOWEL DURING SO HAD REPAIR OF INJURY RADIATION DOSAGE (If Supplied By Facility): CTDIvol = ( 20.4 ) mGy, DLP = ( 1192.21 ) mGycm TECHNIQUE: Transaxial images were obtained from the dome of the diaphragm to the symphysis pubis without oral contrast. IV 100mL Isovue-370 was administered. Sagittal and coronal images were reconstructed. Individualized dose optimization techniques were used for this CT. COMPARISON: None. FINDINGS: The visualized lung bases are unremarkable. The visualized portions of the heart are within normal limits. Normal liver. Normal gallbladder and extrahepatic biliary system. Normal spleen. Normal pancreas. Normal bilateral adrenal glands. Normal right kidney. Normal left kidney. Normal visualized stomach. Normal small intestine. Normal colon. There has been an appendectomy. Normal abdominal aorta. Normal inferior vena cava. Normal retroperitoneum. Normal urinary bladder. There has been a hysterectomy. There is NO ascites, free air, abscess or adenopathy. Normal abdominal wall. Normal osseous structures. CT/Abdomen/Pelvis W IV Cont ONLY IMPRESSION: There is NO acute intra-abdominal abnormality. Electronically Signed: Pardeep Dickens MD at 2:17 EDT , Service support ,
[2019-12-03] MEDS: Ondansetron 4 MG/2 ML Vial IV (01:28)
[2019-12-03] MEDS: Morphine 4 MG/ML Syringe IV (01:31)
[2019-12-03 01:41] LABS: Absolute Lymphocyte Count 3.59 X10^3/uL (0.83-4.51); Absolute Neutrophil Count 3.2 X10^3/uL (2.0-7.7); Basophil# 0.06 X10^3/uL; Basophil% 0.8 % (0-1); Eosinophils% 3.8 % (0-5); Hematocrit 39.6 % (37-47); Lymphocyte # 3.59 X10^3/ul (4.0); Lymphocyte % 45.4 % (19-41); Mean Corp Hgb Conc 32.8 g/dL (32-36); Mean Corpuscular Hgb 28.4 pg (27.0-32.0); Mean Corpuscular Volume 86.7 fL (81-99); Mean Platelet Vol. 10.4 fl (6.2-12.0); Monocyte# 0.72 X10^3/uL; Monocyte% 9.1 % (0-10); Mucous, Urine 0 SEEN /hpf (<or=2+); NRBC Flagged by Analyzer 0 % (0-5); Neutrophil # 3.22 X10^3/uL (2.7-7.7); Neutrophil % 40.8 % (47-70); Platelet Count 292 K/mm3 (150-450); RBC Distribution Width CV 11.9 % (11.6-14.6); RBC Distribution Width SD 38.1 fl (35.1-43.9); Red Blood Cells-Urine 0 SEEN /hpf (0-5); Red Blood Count 4.57 M/mm3 (4.2-5.4); White Blood Cells 0 SEEN /hpf (0-5); White Blood Count 7.9 K/mm3 (4.4-11.0)
[2019-12-03 01:42] LABS: Color, Urine Yellow (Yellow); Glucose, Dipstick Normal (Normal); Ketone-Dipstick Negative (Negative); Leukocyte Esterase-Dipstick Negative /ul (Negative); Nitrite-Dipstick Negative (Negative); Occult Blood-Urine Negative /ul (Negative); Protein-Dipstick Negative (Negative); Urine Bilirubin Dipstick Negative (Negative); Urine Clarity Clear (Clear); Urine Urobilinogen Normal (Normal)
[2019-12-03 01:49] LABS: Squamous Epithelial Cells - UA 0-5 SEEN /hpf (5-10)
[2019-12-03 01:51] LABS: Bacteria RARE /hpf (None Seen)
[2019-12-03 01:57] LABS: ALB/GLOB Ratio 0.9 RATIO (0.9-2.4); AST(SGOT) 18 U/L (15-37); Alanine Aminotransfer ALT/SGPT 19 U/L (13-56); Albumin, Serum 3.7 g/dL (3.2-5.0); Alkaline Phosphatase 71 U/L (45-117); Anion Gap 6 (5-15); BUN 8 mg/dL (7-18); BUN/Creat Ratio 7.8 RATIO (10-20); Calcium,Total 8.8 mg/dL (8.5-10.1); Chloride 103 mmol/L (98-107); Creatinine, Serum 1.02 mg/dL (0.55-1.02); EST Glomerular Filtration Rate 62 mL/min (>60); Est Glom Filt Rate - Afr Amer 74 mL/min (>60); Estimated Creatinine Clearance 58.88 ml/min; Globulin 4.1 g/dL (2.2-4.2); Glucose 114 mg/dL (74-106); Lipase 89 U/L (73-393); Potassium 3.7 mmol/L (3.5-5.1); Protein, Total 7.8 g/dL (6.4-8.2); Sodium Level 137 mmol/L (136-145)
[2019-12-03 03:09] VITALS: BP 146/82; PULSE 91; RESP 16; O2SAT 96
== END 2019-12-03 03:10 | disposition home or self-care (01) ==
PROVIDERS: Emergency Provider Student in an Organized Health Care Education/Training Program
DX: R10.9 Unspecified abdominal pain (principal); K21.9 Gastro-esophageal reflux disease without esophagitis; F17.200 Nicotine dependence, unspecified, uncomplicated; Z88.8 Allergy status to other drugs, medicaments and biological substances
CPT/HCPCS: 74177; 80053; 81001; 83690; 85025; 96374; 96375; 99284; J7030; Q9967; A4216; J2405

== ENCOUNTER 2020-06-03 05:36 | Observation (INO) | payer MEDICAID, SELFPAY ==
[2020-06-03] VITALS (10 sets, daily range): BP systolic 103–133; BP diastolic 73–85; PULSE 68–83; RESP 15–21; TEMP 36.1–37.2; O2SAT 99–100; BMI 41.6; BMI 41.7
--- NOTE | 2020-06-03 | CT_ITS ---
We are attempting to reach an attending provider to discuss findings. An addendum with communication details will be sent when the communication is complete. STUDY: CTA HEAD AND NECK WITH CONTRAST REASON FOR EXAM: Female, 50 years old. LEFT ARM NUMBNESS RADIATION DOSAGE (If Supplied By Facility): CTDIvol = ( 20.36 ) mGy, DLP = ( 756.60 ) mGycm TECHNIQUE: CT angiography was performed with a multi-detector CT scanner. Data acquisition was obtained from the skull base through the vertex following intravenous administration of IV 100mL Isovue-370. MIP images were reconstructed from the axial data set. Post-processing of the angiographic images was performed, with multiplanar reformation and 3D reconstruction. Individualized dose optimization techniques were used for this CT. COMPARISON: No relevant priors. FINDINGS: Normal bilateral petrous carotid arteries. Normal right cavernous carotid artery with a normal supraclinoid bifurcation. Normal left cavernous carotid artery with a normal supraclinoid bifurcation. Normal right A1 segments of the anterior cerebral artery. Normal left A1 segments of the anterior cerebral artery. Normal intact anterior communicating artery (ACOM). Normal bilateral A2 segments of the anterior cerebral arteries. Normal right M1 and M2 segments of the middle cerebral arteries, with a normal M1 bifurcation. Normal left M1 and M2 segments of the middle cerebral arteries, with a normal M1 bifurcation. Normal right posterior communicating artery (PCOM). Normal left posterior communicating artery (PCOM). Normal bilateral vertebral arteries. Normal basilar artery with a normal basilar bifurcation. The visualized bilateral superior cerebellar (SCA) arteries are normal. Normal bilateral P1, P2 and visualized P3 segments of the posterior cerebral arteries. There is no demonstrated aneurysm of the [place]. There is no demonstrated abnormality of the visualized brain. AORTIC ARCH: Normal visualized aortic arch. Normal origins of the brachiocephalic, left common carotid, and left subclavian arteries. RIGHT CAROTID ARTERIES: Normal right common carotid artery (CCA). Normal right common carotid bulb. Normal origin of the right internal carotid (ICA) artery without a hemodynamically significant stenosis. Normal visualized cervical portion of the right internal carotid artery. Normal origin of the right external carotid artery (ECA). LEFT CAROTID ARTERIES: Normal left common carotid artery (CCA). Normal left common carotid bulb. Normal origin of the left internal carotid (ICA) artery without a hemodynamically significant stenosis. Normal visualized cervical portion of the left internal carotid artery. Normal origin of the left external carotid artery (ECA). VERTEBRAL ARTERIES: Normal bilateral vertebral arteries. CT/STROKE CTA Head AND Neck W/Con IMPRESSION: Normal CTA Head and neck with contrast. Electronically Signed: Juan Feldman MD at 8:14 EST Tel , Service support ,
--- NOTE | 2020-06-03 06:07 | EKG12_ITS ---
Test Reason : CP ADMIT Blood Pressure : / mmHG Vent. Rate : 066 BPM Atrial Rate : 066 BPM P-R Int : 188 ms QRS Dur : 086 ms QT Int : 440 ms P-R-T Axes : 041 -05 038 degrees QTc Int : 461 ms Normal sinus rhythm Normal ECG When compared with ECG of 03-JUN-2020 05:44, MANUAL COMPARISON REQUIRED, DATA IS UNCONFIRMED Confirmed by OLIVERIO CHAVEZ, ROSSY ([id number]), editorial manager GENA RIOS ([id number]) on 06/07/2020 2:38:04 PM Referred By: JAIDEN Confirmed By:ROSSY DURON MD
--- NOTE | 2020-06-03 06:07 | RAD_ITS ---
STUDY: X-RAY CHEST REASON FOR EXAM: Female, 50 years old. NEURO DEFICIT, ACUTE, STROKE SUSPECTED. CP STARTED ON LEFT SIDE OF NECK. NUMBNESS DOWN LEFT ARM TECHNIQUE: Single AP portable view of the chest. COMPARISON: 08/28/2019 FINDINGS: The lungs are clear and expanded. There is no demonstrated pleural abnormality. Normal size heart. Normal mediastinum and grey. Normal visualized pulmonary arteries. Normal visualized aortic arch and descending thoracic aorta. Normal visualized thoracic spine. Normal visualized ribs, clavicles, and shoulders. There is no demonstrated abnormality of the visualized soft tissue structures of the upper abdomen. RAD/Chest 1 View IMPRESSION: Normal x-ray examination of the chest. Electronically Signed: Juan Feldman MD at 7:28 EST Tel , Service support ,
--- NOTE | 2020-06-03 06:07 | CT_ITS ---
STUDY: CT HEAD STROKE PROTOCOL W/O CONTRAST INJECTION REASON FOR EXAM: Female, 50 years old. NEURO DEFICIT LEFT ARM NUMBNESS RADIATION DOSAGE (If Supplied By Facility): CTDIvol = ( ) mGy, DLP = ( ) mGycm TECHNIQUE: Transaxial CT imaging of the brain was performed without administration of intravenous contrast material. Individualized dose optimization techniques were used for this CT. COMPARISON: No relevant priors. FINDINGS: Normal soft tissue structures. Normal calvarium. Normal size ventricles and extra-axial spaces for the patient''s age. Normal white matter tracts of the cerebral hemispheres. Normal basal ganglia and thalami. Normal brainstem. Normal cerebellum. There is no intracranial hemorrhage. There are no findings of an acute ischemic infarction. Mucosal thickening in the left maxillary sinus consistent with chronic sinusitis. ASPECT score: CT/STROKE Brain/Head without Cont IMPRESSION: Normal unenhanced CT scan of the brain. N.B. : The above information has been verbally conveyed by Juan Feldman MD to Velia Hay MD, on 06/03/2020 06:30:07 (ET). Electronically Signed: Juan Feldman MD at 6:31 EST Tel , Service support ,
[2020-06-03 06:30] LABS: Bedside Glucose 91 mg/dL (70-110)
--- NOTE | 2020-06-03 06:45 | ED.VISSUMM ---
- ER Visit Summary Date of Service: 06/03/20 Chief Complaint: Chest pain, left arm tingling History of Present Illness: The patient is a 50 F presenting with chest pain and left arm tingling. She states this started approximately 4 to 5 hours ago. She felt that her left arm was heavy. She complains of tingling sensation in her left arm and face. She states 3 hours ago she started having left-sided chest pain which she describes as 8 out of 10. She states the chest pain started at rest and nothing makes this better or worse. She has associated dizziness. She denies nausea, vomiting, diaphoresis, shortness of breath. She has a history of hypertension and smoking. She uses marijuana daily, has not used cocaine since last year. She is not on anticoagulants. Physical Examination: Vitals are stable. Patient is afebrile. Alert no acute distress. HEENT exam is unremarkable. Neck is supple. Lungs are clear and equal bilaterally. Heart is regular rate and rhythm. Abdomen is soft nontender nondistended. Extremities are unremarkable. Skin is warm and dry. NIH 1: decrease sensation left face and arm Remainder of exam is unremarkable. Emergency Department Course and Treatment: EKG is sinus rhythm rate of 80 with no acute ischemic changes. Discussed with [facility] neurology on patient's arrival. Noncontrast head CT is normal. [facility] neurology recommends CTA and admission for stroke work-up if this is negative. Labs are pending. Discussed with hospitalist for admission. Disposition: Admission Impression: Chest pain, left arm weakness This note was generated with [employer] dictation software. It may contain incorrect words, spelling, and punctuation that were not noted in review of the chart prior to signing ED Disposition - Plan for ED Patient: Referrals: Wili Valles MD [Primary Care Provider] -
[2020-06-03 07:03] LABS: Absolute Lymphocyte Count 3.83 X10^3/uL (0.83-4.51); Basophil# 0.07 X10^3/uL; Basophil% 0.9 % (0-1); Eosinophil# 0.26 X10^3/uL; Eosinophils% 3.3 % (0-5); Hematocrit 39.8 % (37-47); Hemoglobin 13.1 g/dL (12.0-15.0); Lymphocyte # 3.83 X10^3/ul (4.0); Lymphocyte % 49.3 % (19-41); Mean Corp Hgb Conc 32.9 g/dL (32-36); Mean Corpuscular Hgb 27.6 pg (27.0-32.0); Mean Platelet Vol. 10.2 fl (6.2-12.0); Monocyte# 0.57 X10^3/uL; Monocyte% 7.3 % (0-10); NRBC Flagged by Analyzer 0 % (0-5); Neutrophil # 3.02 X10^3/uL (2.7-7.7); Neutrophil % 38.9 % (47-70); Platelet Count 320 K/mm3 (150-450); RBC Distribution Width SD 36.6 fl (35.1-43.9); Red Blood Count 4.74 M/mm3 (4.2-5.4); White Blood Count 7.8 K/mm3 (4.4-11.0)
[2020-06-03 07:22] LABS: Anion Gap 4 (5-15); BUN 10 mg/dL (7-18); BUN/Creat Ratio 9.9 RATIO (10-20); Chloride 103 mmol/L (98-107); Creatinine, Serum 1.01 mg/dL (0.55-1.02); EST Glomerular Filtration Rate 62 mL/min (>60); Est Glom Filt Rate - Afr Amer 75 mL/min (>60); Estimated Creatinine Clearance 58.82 ml/min; Glucose 91 mg/dL (74-106); Potassium 3.6 mmol/L (3.5-5.1); Sodium Level 137 mmol/L (136-145)
[2020-06-03 08:00] LABS: International Normalized Ratio 0.9; Prothrombin Time (Protime)PT. 11.5 SECONDS (11.7-14.9)
[2020-06-03 08:01] LABS: Partial Thromboplast Time 25.4 Seconds (24.1-36.2)
--- NOTE | 2020-06-03 08:14 | HP.PCM_ITS ---
Problem List (1) Excessive somnolence disorder Status: Chronic (2) Illicit drug use, continuous Status: Chronic (3) BMI 40.0-44.9, adult Status: Chronic (4) ANNETTE (obstructive sleep apnea) Status: Chronic (5) Hypertension Status: Chronic (6) Hypothyroidism (acquired) Status: Chronic Comment: previously treated for hyperthyroidism with medication (7) History of appendectomy Status: Chronic (8) History of hysterectomy Status: Chronic Comment: 2014 (9) History of tubal ligation Status: Chronic (10) Abnormal EKG Status: Chronic (11) ADHD (attention deficit hyperactivity disorder) Status: Chronic (12) Labyrinthitis Status: Chronic (13) Vertigo Status: Chronic (14) Depression Status: Chronic (15) Anxiety disorder Status: Chronic History of Present Illness Date of Admission: 06/03/20 Chief Complaint: Left arm heaviness and tingling. The patient is a 50 year old F who presents emergency room due to left arm heaviness and tingling. She states this began around 1 AM this morning. She reports abnormal feeling on the left side of her neck although she said it is hard to explain. Patient states she has been under significant stress at home as she thinks her of 30 years is cheating on her and giving her sleeping meds. She states she thinks he may be putting something in her food or drink. She denies slurred speech, vision changes, unilateral weakness or focal deficits. Reports left arm heaviness and tingling is still present however mild. Patient also reports pain in the center of her chest which is constant. Denies shortness of breath. Reports intermittent dizziness and lightheadedness over the past few days. She has a past medical history of hypertension, hypothyroidism, tobacco dependence, polysubstance abuse, morbid obesity. Past Medical History Past Medical History (Chronic Problems): Chronic Problems (Last Reviewed 12/03/19 @ 04:[address] Bryan Roper, DO) Excessive somnolence disorder (Chronic) Illicit drug use, continuous (Chronic) BMI 40.0-44.9, adult (Chronic) ANNETTE (obstructive sleep apnea) (Chronic) Hypertension (Chronic) Hypothyroidism (acquired) (Chronic) previously treated for hyperthyroidism with medication History of appendectomy (Chronic) History of hysterectomy (Chronic) 2013 History of tubal ligation (Chronic) Abnormal EKG (Chronic) ADHD (attention deficit hyperactivity disorder) (Chronic) Labyrinthitis (Chronic) Vertigo (Chronic) Depression (Chronic) Anxiety disorder (Chronic) Medical History: Medical History (Last Reviewed 12/03/19 @ 04:[address] Bryan Roper DO) Excessive somnolence disorder (Chronic) G47.10 Hypertension (Chronic) I10 Hypothyroidism (acquired) (Chronic) E03.9 previously treated for hyperthyroidism with medication Abnormal EKG (Chronic) R94.31 ADHD (attention deficit hyperactivity disorder) (Chronic) Labyrinthitis (Chronic) H83.09 Vertigo (Chronic) R42 Allergies codeine Allergy (Verified 12/03/19 00:58) Itching lisinopril Allergy (Verified 12/03/19 00:58) Angioedema Home Medications: Ambulatory Orders Medication Instructions Recorded Estrogens, Conjugated [Premarin] 1.25 mg PO DAILY 04/23/14 Levothyroxine [Synthroid] 100 mcg PO DAILY 04/24/19 Pregabalin [Lyrica] 200 mg PO BID 04/24/19 Dextroamphetamine/Amphetamine 15 mg PO DAILY 06/03/20 [Adderall 15 mg Tablet] Surgical History: Surgical History (Last Reviewed 06/03/20 @ 08:29 by Beverly Kathleen NP, [employer]ESH[employer] WORKER-C) History of appendectomy (Chronic) Z90.49 History of hysterectomy (Chronic) Z90.710 2014 History of tubal ligation (Chronic) Z98.51 Psychiatric History: No pertinent psych 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 Lives: Spouse/ Significant Other Smoking Status: Current every day smoker Tobacco Use: Cigarettes Alcohol: None Drugs: None - *Family History Maternal Family History: Family History (Last Reviewed 06/03/20 @ 08:30 by Beverly Kathleen NP, [employer] WORKER-C) Sister CAD (coronary artery disease) Myocardial infarction Sudden cardiac Father Pancreatic cancer Paternal Family History: Family History (Last Reviewed 06/03/20 @ 08:30 by Beverly Kathleen NP, [employer] WORKER-C) Sister CAD (coronary artery disease) Myocardial infarction Sudden cardiac Father Pancreatic cancer Review of Systems Constitutional: Denies: Chills, Fever, Weight Change HEENT: Denies: Head Aches, Sinus Congestion, Sinus Drainage Cardiovascular: Reports: Chest Pain. Denies: Palpitations Respiratory: Denies: Cough, Shortness of breath at rest, Sputum production Gastrointestinal: Denies: Abdominal Pain, Nausea, Vomiting Genitourinary: Denies: Dysuria Musculoskeletal: Denies: Joint Pain, Joint Tenderness Skin: Denies: Rash, Wounds Neurological: Reports: Numbness, Tingling Psychiatric: Denies: Anxiety, Depression, Homicidal Ideations, Suicidal Ideations Hematologic/ Lymphatic: Denies: Easy Bruising, Easy Bleeding VTE Information - Inpt Only VTE Present on Admission: No VTE Mechan Device Prophylaxis: None VTE Pharm Prophylaxis ordered?: No Reason prophylaxis not ordered:: Treatment Not Indicated - Physical Exam Vitals/I&O's: Vital Signs Temp Pulse Resp BP Pulse Ox 98.9 F 79 21 H 133/79 H 100 06/03/20 07:07 06/03/20 08:04 06/03/20 08:04 06/03/20 08:04 06/03/20 08:04 Oxygen Delivery Method Room Air Weight: 242 lb 11.663 oz Body Mass Index (BMI) 41.6 Finger Stick Blood Glucose 91 General: Alert, Oriented x3, Cooperative HEENT: Atraumatic, PERRLA, EOMI, Normocephalic Neck: Supple, No JVD, Negative Carotid Bruits Lungs: Clear to auscultation, Normal air movement Cardiovascular: Regular rate, No murmurs Abdomen: Bowel Sounds Present, Soft, Non Tender, Non-Distended, Obese Extremities: No clubbing, No cyanosis, No edema, Capillary Refill Less than 3 Seconds Skin: No rashes, No breakdown Musculoskeletal: No Tenderness to Palpation of Joints or Extremities Neurological: Cranial nerves II-XII grossly intact, Neuro grossly intact Psych/Mental Status: Anxious Laboratory Results 06/03/20 06:23: POC Glucose 91 06/03/20 06:55: WBC 7.8, RBC 4.74, Hgb 13.1, Hct 39.8, MCV 84.0, MCH 27.6, MCHC 32.9, RDW Std Deviation 36.6, RDW Coeff of [place] 12.0, Plt Count 320, MPV 10.2, Immature Gran % (Auto) 0.300, Neut % (Auto) 38.9 L, Lymph % (Auto) 49.3 H, [place] % (Auto) 7.3, Eos % (Auto) 3.3, Baso % (Auto) 0.9, Absolute Neuts (auto) 3.0, Absolute Lymphs (auto) 3.83, Nucleated RBC % 0 06/03/20 06:55: PT Cancelled, INR Cancelled, APTT Cancelled 06/03/20 06:55: Sodium 137, Potassium 3.6, Chloride 103, Carbon Dioxide 30.0, Anion Gap 4 L, BUN 10, Creatinine 1.01, Estim Creat Clear Calc 58.82, Est GFR (MDRD) Af Amer 75, Est GFR (MDRD) Non-Af 62, BUN/Creatinine Ratio 9.9 L, Glucose 91, Calcium 9.0, Troponin I < 0.015 06/03/20 07:35: PT 11.5 L, INR 0.9, APTT 25.4 Assessment/Plan 1. Left arm heaviness, tingling-brain CT normal. CTA of head and neck normal. Obtain MRI of brain. Aspirin, statin. PT/OT/ST. 2. Atypical chest pain-patient underwent stress echo July 2019 which was normal. Trend enzymes. EKG without ST-T changes. 3. History of polysubstance abuse-previous tox screen positive for cocaine, cannabinoids. Patient denies current use. 4. Tobacco dependence-encourage cessation. 5. Hypertension-on amlodipine, HCTZ. 6. Hypothyroidism-continue Synthroid regimen. 7. Morbid obesity- encouraged diet and lifestyle modifications. 8. Depression/anxiety-on amitriptyline. DVT prophylaxis-not indicated, low risk This patient was seen by ML Barragan under the supervision of Dr. Fisher.
--- NOTE | 2020-06-03 08:47 | MRI_ITS ---
STUDY: MRI BRAIN WITHOUT CONTRAST REASON FOR EXAM: Female, 50 years old. left arm parasthesia TECHNIQUE: Standardized multiplanar fat and water weighted pulse sequences were obtained. COMPARISON: CT earlier today, MRI 11/03/2017 FINDINGS: Normal size of the ventricles and extra-axial spaces for the patient''s age. Normal white matter tracts of the supratentorial brain. There is no evidence for recent intracranial ischemia or other cause of cytotoxic edema on diffusion weighted imaging (DWI). Normal T2* images of the brain without demonstrated susceptibility artifact. There is no demonstrated hemosiderin stain. Normal bilateral basal ganglia. Normal thalami. There is no extra-axial fluid accumulation. Normal flow voids within the major intracranial circulation suggesting patency by spin echo criteria. Normal sella turcica, pituitary gland, infundibular stalk, optic chiasm and hypothalamus. Normal tectal plate and pineal gland. Normal midbrain, allison and medulla. Normal cerebellum. Normal basal cisterns. Normal bilateral temporal bones. Normal bilateral internal auditory canals. No demonstrated orbital abnormality, within the constraints of a routine brain study. Mucosal thickening of the left maxillary sinus consistent with chronic sinusitis. Normal calvarium and skull base. Normal visualized soft tissue structures. Normal visualized upper cervical spine. MRI/Brain without Contrast IMPRESSION: Normal unenhanced MRI of the brain. Electronically Signed: Juan Feldman MD at 11:31 EST Tel , Service support ,
--- NOTE | 2020-06-03 09:00 | PCS.PANDOC ---
PANDEMIC DOCUMENTATION INITIATED: Date: 06/03/20 Time: 46
[2020-06-03] MEDS: LORazepam 2 MG/ML Syringe 1 MG IV (10:15)
--- NOTE | 2020-06-03 10:32 | NURSING ---
1015-Pt medicated and taken to MRI by Tia Strong RN.
--- NOTE | 2020-06-03 11:45 | DCINST_ITS ---
- Discharge Diagnoses Current Active Problems: Current Active and Chronic Problems (Last Reviewed 12/03/19 @ 04:[address] Bryan Roper, DO) Excessive somnolence disorder (Chronic) Illicit drug use, continuous (Chronic) BMI 40.0-44.9, adult (Chronic) ANNETTE (obstructive sleep apnea) (Chronic) Hypertension (Chronic) Hypothyroidism (acquired) (Chronic) previously treated for hyperthyroidism with medication History of appendectomy (Chronic) History of hysterectomy (Chronic) 2014 History of tubal ligation (Chronic) Abnormal EKG (Chronic) ADHD (attention deficit hyperactivity disorder) (Chronic) Labyrinthitis (Chronic) Vertigo (Chronic) Depression (Chronic) Anxiety disorder (Chronic) You will use the following diet at home:: Calorie/Carbohydrate Controlled (specify 1200, 1400, etc) Discharge Activity: Return to Normal Activity Call your doctor if you observe: Shortness of breath, Dizziness, Fainting spells, Chest pain Allergies/Adverse Reactions: Allergies codeine Allergy (Verified 12/03/19 00:58) Itching lisinopril Allergy (Verified 12/03/19 00:58) Angioedema Medications to take at Discharge Estrogens, Conjugated [Premarin] 1.25 mg PO DAILY 04/23/14 Levothyroxine [Synthroid] 100 mcg PO DAILY 04/24/19 Pregabalin [Lyrica] 200 mg PO BID 04/24/19 Amlodipine Besylate [Norvasc] 10 mg PO DAILY 06/03/20 Dextroamphetamine/Amphetamine [Adderall 15 mg Tablet] 15 mg PO DAILY 06/03/20 Primary Care Physician: Wili Valles MD [Primary Care Provider] - Please follow up with your Primary Care Physician in: 1 Week Test Results: Test results from this visit will be discussed in further detail at your follow- up appointment, if applicable. Proposed Discharge Date: 06/03/20
--- NOTE | 2020-06-03 11:48 | PCM.DC.SUM ---
Discharge Date and Diagnosis Date of Admission: 06/03/20 Date of Discharge: 06/03/20 - Primary Discharge Diagnosis Acute Problems: 1. Left arm paresthesias-unknown etiology, CVA ruled out. 2. Musculoskeletal chest pain-ACS ruled out. 3. History of polysubstance abuse 4. Tobacco dependence 5. Hypertension 6. Hypothyroidism 7. Morbid obesity 8. Depression/anxiety - Secondary Discharge Diagnosis Chronic Problems: Chronic Problems (Last Reviewed 12/03/19 @ 04:[address] Bryan Roper DO) Excessive somnolence disorder (Chronic) Illicit drug use, continuous (Chronic) BMI 40.0-44.9, adult (Chronic) ANNETTE (obstructive sleep apnea) (Chronic) Hypertension (Chronic) Hypothyroidism (acquired) (Chronic) previously treated for hyperthyroidism with medication History of appendectomy (Chronic) History of hysterectomy (Chronic) 2014 History of tubal ligation (Chronic) Abnormal EKG (Chronic) ADHD (attention deficit hyperactivity disorder) (Chronic) Labyrinthitis (Chronic) Vertigo (Chronic) Depression (Chronic) Anxiety disorder (Chronic) Hospital Course and Treatment Imaging Results: Diagnostic Data Head/Neck CTA 06/03/20 00:00 IMPRESSION: Normal CTA Head and neck with contrast. Electronically Signed: Juan Feldman MD at 8:14 EST Tel , Service support , ADDENDUM: 06/03/20 0824 IMPRESSION: Normal CTA Head and neck with contrast. N.B. : The above information has been verbally conveyed by Juan Feldman MD to Dr. Khoi MD, on 06/03/2020 08:17:30 (ET). Electronically Signed: Juan Feldman MD at 8:14 EST Tel , Service support , Brain CT 06/03/20 06:07 IMPRESSION: Normal unenhanced CT scan of the brain. N.B. : The above information has been verbally conveyed by Juan Feldman MD to Velia Hay MD, on 06/03/2020 06:30:07 (ET). Electronically Signed: Juan Feldman MD at 6:31 EST Tel , Service support , ADDENDUM: 06/03/20 0637 IMPRESSION: Normal unenhanced CT scan of the brain. N.B. : The above information has been verbally conveyed by Juan Feldman MD to Velia Hay MD, on 06/03/2020 06:30:07 (ET). Electronically Signed: Juan Feldman MD at 6:31 EST Tel , Service support , Chest X-Ray 06/03/20 06:07 IMPRESSION: Normal x-ray examination of the chest. Electronically Signed: Juan Feldman MD at 7:28 EST Tel , Service support , Brain MRI 06/03/20 08:47 IMPRESSION: Normal unenhanced MRI of the brain. Electronically Signed: Juan Feldman MD at 11:31 EST Tel , Service support , Operations: None Procedures: None Summary of Care Provided: The patient is a 50 year old F admitted 06/03/2020 due to left arm heaviness and tingling. 1. Left arm paresthesias-brain CT normal. CTA of head and neck normal. MRI of brain normal. CVA ruled out. If patient has ongoing symptoms, she may undergo outpatient evaluation for cervical spine etiology and/or psychosomatic etiology. She reports she is under significant stress at home. Follow-up with PCP in 1 week. 2. Musculoskeletal chest pain-patient underwent stress echo July 2019 which was normal. EKG without ST-T changes. Troponin negative. Follow-up with PCP as noted above. 3. History of polysubstance abuse-previous tox screen positive for cocaine, cannabinoids. Patient denies current use. 4. Tobacco dependence-encourage cessation. 5. Hypertension-on amlodipine, HCTZ. 6. Hypothyroidism-continue Synthroid regimen. 7. Morbid obesity- encouraged diet and lifestyle modifications. 8. Depression/anxiety-on amitriptyline. General: Alert, Oriented x3, Cooperative HEENT: Atraumatic, PERRLA, EOMI, Normocephalic Neck: Supple, No JVD, Negative Carotid Bruits Lungs: Clear to auscultation, Normal air movement Cardiovascular: Regular rate, No murmurs Abdomen: Bowel Sounds Present, Soft, Non Tender, Non-Distended, Obese Extremities: No clubbing, No cyanosis, No edema, Capillary Refill Less than 3 Seconds Skin: No rashes, No breakdown Musculoskeletal: No Tenderness to Palpation of Joints or Extremities Neurological: Cranial nerves II-XII grossly intact, Neuro grossly intact Psych/Mental Status: Anxious Patient seen and examined prior to discharge. Physical assessment as noted above. Patient is stable for discharge with follow up recommendations as noted above. This patient was seen by ML Barragan under the supervision of Dr. Fisher. - Physical Exam Vitals/I&O's: Vital Signs Temp Pulse Resp BP Pulse Ox 98.4 F 69 18 128/80 H 100 06/03/20 09:10 06/03/20 09:10 06/03/20 09:10 06/03/20 09:10 06/03/20 09:10 Oxygen Delivery Method Room Air Weight: 243 lb 3.2 oz Body Mass Index (BMI) 41.7 Finger Stick Blood Glucose 91 Laboratory Results 06/03/20 06:23: POC Glucose 91 06/03/20 06:55: WBC 7.8, RBC 4.74, Hgb 13.1, Hct 39.8, MCV 84.0, MCH 27.6, MCHC 32.9, RDW Std Deviation 36.6, RDW Coeff of [place] 12.0, Plt Count 320, MPV 10.2, Immature Gran % (Auto) 0.300, Neut % (Auto) 38.9 L, Lymph % (Auto) 49.3 H, [place] % (Auto) 7.3, Eos % (Auto) 3.3, Baso % (Auto) 0.9, Absolute Neuts (auto) 3.0, Absolute Lymphs (auto) 3.83, Nucleated RBC % 0 06/03/20 06:55: PT Cancelled, INR Cancelled, APTT Cancelled 06/03/20 06:55: Sodium 137, Potassium 3.6, Chloride 103, Carbon Dioxide 30.0, Anion Gap 4 L, BUN 10, Creatinine 1.01, Estim Creat Clear Calc 58.82, Est GFR (MDRD) Af Amer 75, Est GFR (MDRD) Non-Af 62, BUN/Creatinine Ratio 9.9 L, Glucose 91, Calcium 9.0, Troponin I < 0.015 06/03/20 07:35: PT 11.5 L, INR 0.9, APTT 25.4 06/03/20 10:09: Troponin I < 0.015 Current Medications Acetaminophen (Acetaminophen 325 Mg Tablet) 650 mg PO Q6H PRN PRN PRN Reason: Pain Score 1-10/Temp > 100.7 F Discharge Diet: Low fat/ Low Cholesterol, 1800 Calorie Control Diet Discharge Activity: Return to Normal Activity Call your doctor if you observe: Shortness of breath, Dizziness, Fainting spells, Chest pain Home Medications: Medications to take at Discharge Estrogens, Conjugated [Premarin] 1.25 mg PO DAILY 04/23/14 Levothyroxine [Synthroid] 100 mcg PO DAILY 04/24/19 Pregabalin [Lyrica] 200 mg PO BID 04/24/19 Amlodipine Besylate [Norvasc] 10 mg PO DAILY 06/03/20 Dextroamphetamine/Amphetamine [Adderall 15 mg Tablet] 15 mg PO DAILY 06/03/20 Primary Care Physician: Wili Valles MD [Primary Care Provider] - Please follow up with your Primary Care Physician in: 1 Week Disposition: Home Minutes spent on discharge:: 35 Patient Condition:: Stable Medical Necessity - Tobacco Use Smoking Status: Current every day smoker Tobacco Use: Cigarettes Meaningful Use Info Meaningful Use Diagnoses (Choose all that apply): None applicable
== END 2020-06-03 11:47 | disposition home or self-care (01) ==
LOC: ED 06:40 → PCU 08:42
PROVIDERS: Admitting Provider Internal Medicine; Emergency Provider Emergency Medicine; PCP Internal Medicine; Visit Provider Internal Medicine
DX: R07.89 Other chest pain (principal); R20.2 Paresthesia of skin; R42 Dizziness and giddiness; I10 Essential (primary) hypertension; F17.210 Nicotine dependence, cigarettes, uncomplicated; R53.1 Weakness; G47.33 Obstructive sleep apnea (adult) (pediatric); E03.9 Hypothyroidism, unspecified; F90.9 Attention-deficit hyperactivity disorder, unspecified type; F32.9 Major depressive disorder, single episode, unspecified; F41.9 Anxiety disorder, unspecified; E66.01 Morbid (severe) obesity due to excess calories; Z68.41 Body mass index [BMI] 40.0-44.9, adult; Z79.899 Other long term (current) drug therapy
CPT/HCPCS: 36415; 70450; 70496; 70498; 70551; 71045; 80048; 82962; 84484; 85025; 85610; 85730; 93005; 96374; 99285; Q9967; A4216

== ENCOUNTER 2020-06-10 20:06 | Inpatient (IN) | payer MEDICAID, SELFPAY ==
[2020-06-03 09:11] VITALS: BMI 41.7
[2020-06-10 20:07] VITALS: BP 134/99; PULSE 107; RESP 17; TEMP 35.7; O2SAT 97; BMI 41.8
[2020-06-10 20:19] VITALS: BP 134/99; PULSE 107; RESP 17; TEMP 35.7; O2SAT 97
--- NOTE | 2020-06-10 20:37 | ED.VISSUMM ---
- ER Visit Summary Date of Service: 06/10/20 Chief Complaint: Requesting alcohol detox History of Present Illness: The patient is a 50 F presenting requesting detox from alcohol. Patient has history of polysubstance abuse. She states she drinks daily and uses marijuana and methamphetamine. She denies IV drug use. She states that if she does not use these drugs she feels like she is jumping out of her skin. She states she feels like she has been seeing things that are not there. She has no history of withdrawal seizures in the past. Her last drink was at 2 PM. Physical Examination: Vitals are stable. Patient is afebrile. Alert no acute distress. HEENT exam is unremarkable. Neck is supple. Lungs are clear and equal bilaterally. Heart is regular and tachycardic Abdomen is soft nontender nondistended. Extremities are unremarkable. Skin is warm and dry. No focal neurologic deficit. Remainder of exam is unremarkable. Emergency Department Course and Treatment: Patient was given IV fluids, Ativan. Labs are pending. Discussed with hospitalist for admission. Disposition: Admission Impression: Alcohol dependence, polysubstance abuse This note was generated with [employer] dictation software. It may contain incorrect words, spelling, and punctuation that were not noted in review of the chart prior to signing ED Disposition - Plan for ED Patient: Referrals: Wili Valles MD [Primary Care Provider] -
[2020-06-10 20:53] LABS: ALB/GLOB Ratio 0.7 RATIO (0.9-2.4); AST(SGOT) 16 U/L (15-37); Alanine Aminotransfer ALT/SGPT 18 U/L (13-56); Albumin, Serum 3.4 g/dL (3.2-5.0); Alcohol, Blood (Medical)-Serum < 3.0 mg/dL; Alkaline Phosphatase 101 U/L (45-117); Anion Gap 8 (5-15); BUN 9 mg/dL (7-18); BUN/Creat Ratio 7.9 RATIO (10-20); Chloride 103 mmol/L (98-107); Creatinine, Serum 1.14 mg/dL (0.55-1.02); EST Glomerular Filtration Rate 54 mL/min (>60); Est Glom Filt Rate - Afr Amer 65 mL/min (>60); Estimated Creatinine Clearance 52.11 ml/min; Globulin 4.6 g/dL (2.2-4.2); Glucose 130 mg/dL (74-106); Potassium 3.3 mmol/L (3.5-5.1); Sodium Level 138 mmol/L (136-145)
--- NOTE | 2020-06-10 21:00 | PCM.HP.STD ---
Problem List (1) Alcohol withdrawal Status: Acute (2) Excessive somnolence disorder Status: Chronic (3) Illicit drug use, continuous Status: Chronic (4) BMI 40.0-44.9, adult Status: Chronic (5) ANNETTE (obstructive sleep apnea) Status: Chronic (6) Hypertension Status: Chronic (7) Hypothyroidism (acquired) Status: Chronic Comment: previously treated for hyperthyroidism with medication (8) History of appendectomy Status: Chronic (9) History of hysterectomy Status: Chronic Comment: 2014 (10) History of tubal ligation Status: Chronic (11) Abnormal EKG Status: Chronic (12) ADHD (attention deficit hyperactivity disorder) Status: Chronic (13) Labyrinthitis Status: Chronic (14) Vertigo Status: Chronic (15) Depression Status: Chronic (16) Anxiety disorder Status: Chronic (17) Withdrawal from methamphetamine Status: Acute History of Present Illness Date of Admission: 06/10/20 Chief Complaint: Withdrawal symptoms The patient is a 50 year old F with a significant history of hypertension; hypothyroidism; and polysubstance dependence who presented to emergency department with withdrawal symptoms and for help with detoxification. Patient uses alcohol; methamphetamine and marijuana. She drinks about 6 bottles of beers and mixed drinks per day. At times she drink more than as stated. Last time she drank was at about 2 PM on the same day of presentation. Her last drink was liquor. She was at emergency department at about 8 PM on the day of presentation. As she smokes and snorts methamphetamine. She smokes marijuana. She has been to [place] about 7 times for rehabilitation. Her last rehabilitation was in 2002. Her withdrawal symptoms started few before presentation. She describes her withdrawal symptoms as shakiness; diaphoresis; paranoia; and visual hallucinations. Past Medical History Past Medical History (Chronic Problems): Chronic Problems (Last Reviewed 06/10/20 @ 21:[address] Simone Lazo MD) Excessive somnolence disorder (Chronic) Illicit drug use, continuous (Chronic) BMI 40.0-44.9, adult (Chronic) ANNETTE (obstructive sleep apnea) (Chronic) Hypertension (Chronic) Hypothyroidism (acquired) (Chronic) previously treated for hyperthyroidism with medication History of appendectomy (Chronic) History of hysterectomy (Chronic) 2013 History of tubal ligation (Chronic) Abnormal EKG (Chronic) ADHD (attention deficit hyperactivity disorder) (Chronic) Labyrinthitis (Chronic) Vertigo (Chronic) Depression (Chronic) Anxiety disorder (Chronic) Medical History: Medical History (Last Reviewed 06/10/20 @ 21:[address] Simone Lazo MD) Excessive somnolence disorder (Chronic) G47.10 Hypertension (Chronic) I10 Hypothyroidism (acquired) (Chronic) E03.9 previously treated for hyperthyroidism with medication Abnormal EKG (Chronic) R94.31 ADHD (attention deficit hyperactivity disorder) (Chronic) Labyrinthitis (Chronic) H83.09 Vertigo (Chronic) R42 Allergies codeine Allergy (Verified 06/10/20 20:18) Itching lisinopril Allergy (Verified 06/10/20 20:18) Angioedema Home Medications: Ambulatory Orders Medication Instructions Recorded Estrogens, Conjugated [Premarin] 1.25 mg PO DAILY 04/23/14 Levothyroxine [Synthroid] 100 mcg PO DAILY 04/24/19 Pregabalin [Lyrica] 200 mg PO BID 04/24/19 Amlodipine Besylate [Norvasc] 10 mg PO DAILY 06/03/20 Dextroamphetamine/Amphetamine 15 mg PO DAILY 06/03/20 [Adderall 15 mg Tablet] Hydrochlorothiazide 12.5 mg PO DAILY 06/10/20 Surgical History: Surgical History (Last Reviewed 06/10/20 @ 21:[address] Simone Lazo MD) History of appendectomy (Chronic) Z90.49 History of hysterectomy (Chronic) Z90.710 2014 History of tubal ligation (Chronic) Z98.51 Psychiatric History: No pertinent psych hx FORECLOSURE PARALEGAL History: No pertinent FORECLOSURE PARALEGAL history Smoking Status: Current every day smoker Tobacco Use: Cigarettes Alcohol: Heavy Drugs: Marijuana - *Family History Maternal Family History: Family History (Last Reviewed 06/10/20 @ 21:[address] Simone Lazo MD) Sister CAD (coronary artery disease) Myocardial infarction Sudden cardiac Father Pancreatic cancer Review of Systems Constitutional: Denies: Chills, Fever, Weight Change HEENT: Denies: Head Aches, Sinus Congestion, Sinus Drainage Cardiovascular: Denies: Chest Pain, Palpitations Respiratory: Denies: Cough, Shortness of breath at rest, Sputum production Gastrointestinal: Denies: Abdominal Pain, Nausea, Vomiting Genitourinary: Denies: Dysuria Musculoskeletal: Denies: Joint Pain, Joint Tenderness Skin: Denies: Rash, Wounds Neurological: Denies: Numbness, Tingling, Focal weakness Psychiatric: Reports: Anxiety. Denies: Depression, Homicidal Ideations, Suicidal Ideations Hematologic/ Lymphatic: Denies: Easy Bruising, Easy Bleeding VTE Information - Inpt Only VTE Present on Admission: No VTE Mechan Device Prophylaxis: None VTE Pharm Prophylaxis ordered?: No Reason prophylaxis not ordered:: Treatment Not Indicated - Low risk. Encourage to ambulate. Patient Problems: Active and Suspected Problems (Last Reviewed 06/10/20 @ 21:[address] Simone Lazo MD) Alcohol withdrawal (Acute) Withdrawal from methamphetamine (Acute) - Physical Exam Vitals/I&O's: Vital Signs Temp Pulse Resp BP Pulse Ox 96.2 F L 107 H 17 134/99 H 97 06/10/20 20:19 06/10/20 20:19 06/10/20 20:19 06/10/20 20:19 06/10/20 20:19 Oxygen Delivery Method Room Air Weight: 110.4 kg Body Mass Index (BMI) 41.8 Finger Stick Blood Glucose 91 General: Alert, Oriented x3, Cooperative HEENT: Atraumatic, PERRLA, EOMI, Normocephalic Neck: Supple, No JVD, Negative Carotid Bruits Lungs: Clear to auscultation, Normal air movement, No rhonchi, No wheeze, No rales Cardiovascular: Normal S1, Normal S2, No murmurs, Tachycardic Abdomen: Bowel Sounds Present, Soft, Non Tender Extremities: No edema, Capillary Refill Less than 3 Seconds Skin: No rashes, No breakdown Musculoskeletal: No Tenderness to Palpation of Joints or Extremities Neurological: Cranial nerves II-XII grossly intact Psych/Mental Status: Anxious, - - Te[place] Laboratory Results 06/10/20 20:25: Sodium 138, Potassium 3.3 L, Chloride 103, Carbon Dioxide 27.0, Anion Gap 8, BUN 9, Creatinine 1.14 H, Estim Creat Clear Calc 52.11, Est GFR (MDRD) Af Amer 65, Est GFR (MDRD) Non-Af 54 L, BUN/Creatinine Ratio 7.9 L, Glucose 130 H, Calcium 9.0, Total Bilirubin 0.20, AST 16, ALT 18, Alkaline Phosphatase 101, Total Protein 8.0, Albumin 3.4, Globulin 4.6 H, Albumin/Globulin Ratio 0.7 L 06/10/20 20:25: Ethyl Alcohol < 3.0 06/10/20 20:43: Urine Opiates Screen Pending, Urine Methadone Screen Pending, Ur Barbiturates Screen Pending, Ur Phencyclidine Scrn Pending, Ur Amphetamines Screen Pending, U Methamphetamin-MDMA Pending, U Benzodiazepines Scrn Pending, Urine Cocaine Screen Pending, U Cannabinoids Screen Pending, Ur Drug Screen Comment Current Medications Sodium Chloride () 1,000 mls @ 999 mls/hr IV .Q1H1M ONE Stop: 06/10/20 21:34 Assessment/Plan All Active Problems (Last Reviewed 06/10/20 @ 21:[address] Simone Lazo MD) Alcohol withdrawal (Acute) Withdrawal from methamphetamine (Acute) The patient is a 50 year old F with a significant history of ADHD; anxiety disorder; hypertension; hypothyroidism; alcohol; methamphetamine; marijuana; and tobacco abuse who presents to the emergency department with withdrawal symptoms. Alcohol dependence and desire for detoxification/Methamphetamine withdrawal Received Ativan at emergency department. Patient started on phenobarbital and other adjunctive medications: Dicyclomine as needed; Vistaril as needed; methocarbamol as needed; clonidine as needed; Imodium as needed; trazodone as needed; Zofran as needed; scheduled thiamine; and schedule folic acid. Monitor CIWA score Marijuana abuse Counselled Tobacco abuse Nicotine patch prescribed. Hypertension Blood pressure is not within goal Amlodipine and hydrochlorothiazide continued. As needed hydralazine ordered. Trend blood pressure and adjust blood pressure medications. Hypothyroidism Synthroid continued Menopausal symptoms Patient with a history of hysterectomy secondary to fibroid Estrogen continued Obstructive sleep apnea CPAP/BiPAP nightly and as needed for naps if patient uses same at home and at the same setting. Titrate for comfort. Chronic pain Lyrica continued DVT prophylaxis Low risk Encourage to ambulate Inpatient E&M: [id number] Init Hosp L3
[2020-06-10] MEDS: LORazepam 2 MG/ML Syringe 1 MG IV (21:04)
[2020-06-10] MEDS: 0.9% Normal Saline 1,000 ML 999 ML IV (21:04)
[2020-06-10 21:08] VITALS: BP 134/99; PULSE 107; RESP 17; TEMP 35.7; O2SAT 97
[2020-06-10 21:23] LABS: Amphetamine Urine VISTA POSITIVE (<1000 ng/mL); Barbiturate Urine VISTA NEGATIVE (< 200 ng/mL); Benzodiazepine Urine VISTA NEGATIVE (< 200 ng/mL); Cocaine Urine VISTA POSITIVE (< 300 ng/mL); Ecstacy Urine VISTA POSITIVE (< 500 ng/mL); Methadone Urine VISTA NEGATIVE (< 300 ng/mL); PCP Urine VISTA NEGATIVE (< 25 ng/mL); THC Urine VISTA POSITIVE (< 50 ng/mL); Vista UDS pH Range 6
[2020-06-10 21:43] VITALS: BMI 40.6
[2020-06-10 21:51] VITALS: BMI 40.6
[2020-06-10 22:00] VITALS: BP 105/73; PULSE 74; RESP 16; TEMP 36.6; O2SAT 94
[2020-06-10] MEDS: Phenobarbital 32.4 MG Tablet 64.8 MG PO (22:17)
[2020-06-10] MEDS: Pregabalin 50 MG Capsule 200 MG PO (22:17)
[2020-06-10 22:33] VITALS: O2SAT 94
[2020-06-10] MEDS: Acetaminophen 325 MG Tablet 650 MG PO (22:35)
[2020-06-11 02:17] VITALS: BP 102/70; PULSE 82; RESP 18; TEMP 36.5; O2SAT 100
[2020-06-11] MEDS: Ondansetron 8 MG Tablet PO (02:26)
[2020-06-11] MEDS: hydrOXYzine PAM 25 MG Capsule 50 MG PO ×4 (02:26→22:02)
[2020-06-11] MEDS: Phenobarbital 32.4 MG Tablet 64.8 MG PO ×6 (02:30→21:39)
[2020-06-11] MEDS: Levothyroxine 100 MCG Tablet PO (06:09)
[2020-06-11 07:10] VITALS: O2SAT 94
--- NOTE | 2020-06-11 08:07 | PCM.PN.HOSP ---
Patient Problems: Active and Suspected Problems (Last Reviewed 06/10/20 @ 21:[address] Simone Lazo MD) Alcohol withdrawal (Acute) Withdrawal from methamphetamine (Acute) Reason for Visit: Acute alcohol withdrawal Subjective: Patient is a 50-year-old lady with history of polysubstance abuse admitted with alcohol and methamphetamines presented with acute alcohol withdrawal Objective: GENERAL: cooperative HEENT: Atraumatic; EYES; Anicteric, Normal Conjunctiva NECK; supple, normal thyroid, RESPIRATORY: Diminished to auscultation CARDIOVASCULAR: Regular S1 S2, GI: soft, normoactive bowel sounds, : No Renal angle tenderness; EXTREMITIES: No edema, no clubbing, MUSCULOSKELETAL: no muscle waisting NEURO: Awake; no lateralizing signs. SKIN: No Rash PSYCH; Flat affect Vitals/I&O's: Vital Signs Temp Pulse Resp BP Pulse Ox 97.7 F L 82 18 102/70 94 06/11/20 02:17 06/11/20 02:17 06/11/20 02:17 06/11/20 02:17 06/11/20 07:10 Oxygen Delivery Method Room Air Weight: 107.303 kg Body Mass Index (BMI) 40.6 Finger Stick Blood Glucose 91 Intake and Output for Last 24 Hours 06/09/20 06/10/20 06/11/20 23:59 23:59 23:59 Intake Total 1000 / 1500 500 / 500 Balance 1000 / 1500 500 / 500 Laboratory Results 06/10/20 20:25: Sodium 138, Potassium 3.3 L, Chloride 103, Carbon Dioxide 27.0, Anion Gap 8, BUN 9, Creatinine 1.14 H, Estim Creat Clear Calc 52.11, Est GFR (MDRD) Af Amer 65, Est GFR (MDRD) Non-Af 54 L, BUN/Creatinine Ratio 7.9 L, Glucose 130 H, Calcium 9.0, Total Bilirubin 0.20, AST 16, ALT 18, Alkaline Phosphatase 101, Total Protein 8.0, Albumin 3.4, Globulin 4.6 H, Albumin/Globulin Ratio 0.7 L 06/10/20 20:25: Ethyl Alcohol < 3.0 06/10/20 20:43: Urine Opiates Screen NEGATIVE, Urine Methadone Screen NEGATIVE, Ur Barbiturates Screen NEGATIVE, Ur Phencyclidine Scrn NEGATIVE, Ur Amphetamines Screen POSITIVE H, U Methamphetamin-MDMA POSITIVE H, U Benzodiazepines Scrn NEGATIVE, Urine Cocaine Screen POSITIVE H, U Cannabinoids Screen POSITIVE H, Ur Drug Screen Comment Current Medications Acetaminophen (Acetaminophen 325 Mg Tablet) 650 mg PO Q6H PRN PRN PRN Reason: Pain 1-10 or temp>100.4 Last Admin: 06/10/20 22:35 Dose: 650 mg Documented by: Amlodipine Besylate (Amlodipine 10 Mg Tablet) 10 mg PO DAILY [facility] Dicyclomine HCl (Dicyclomine 10 Mg Capsule) 20 mg PO Q6H PRN PRN PRN Reason: abdominal discomfort Estrogens Conjugated (Estrogens,Conj. 1.25 Mg Tablet) 1.25 mg PO DAILY [facility] Folic Acid (Folic Acid 1 Mg Tablet) 1 mg PO DAILY@0800 [facility] Hydrochlorothiazide (Hydrochlorothiazide 12.5mg) 12.5 mg PO DAILY [facility] Hydroxyzine Pamoate (Hydroxyzine Leela 25 Mg Capsule) 50 mg PO Q4H PRN PRN PRN Reason: mild anxiety Last Admin: 06/11/20 02:26 Dose: 50 mg Documented by: Levothyroxine Sodium (Levothyroxine 100 Mcg Tablet) 100 mcg PO DAILY@0600 [facility] Last Admin: 06/11/20 06:09 Dose: 100 mcg Documented by: Loperamide HCl (Loperamide 2 Mg Capsule) 2 mg PO Q4H PRN PRN PRN Reason: LOOSE STOOLS Nicotine (Nicotine 21 Mg Patch) 21 mg TD DAILY [facility] Last Admin: 06/10/20 22:17 Dose: 21 mg Documented by: Ondansetron HCl (Ondansetron 8 Mg Tablet) 8 mg PO Q8H PRN PRN PRN Reason: NAUSEA Last Admin: 06/11/20 02:26 Dose: 8 mg Documented by: Phenobarbital (Phenobarbital 32.4 Mg Tablet) 97.2 mg PO Q4H [facility]; Taper Stop: 06/15/20 05:59 Last Admin: 06/11/20 06:09 Dose: 97.2 mg Documented by: Pregabalin (Pregabalin 50 Mg Capsule) 200 mg PO BID [facility] Last Admin: 06/10/20 22:17 Dose: 200 mg Documented by: Sodium Chloride (0.9% Saline Lock 10 Ml Syringe) 10 - 40 ml IV UD PRN PRN Reason: SALINE FLUSH Thiamine HCl (Thiamine Hydrochloride 100 Mg Tablet) 100 mg PO DAILYCM [facility]AN Trazodone HCl (Trazodone 100 Mg Tablet) 100 mg PO QHS PRN PRN Reason: INSOMNIA STROKE Vital Signs/Narrative: Vital Signs Pulse Ox 06/11/20 07:10 94 Medical Necessity - Tobacco Use Smoking Status: Current every day smoker Tobacco Use: Cigarettes Assessment/Plan All Active Problems (Last Reviewed 06/10/20 @ 21:[address] Simone Lazo MD) Alcohol withdrawal (Acute) Withdrawal from methamphetamine (Acute) Patient is a 50-year-old lady with history of polysubstance abuse admitted with alcohol and methamphetamines presented with acute alcohol withdrawal 1. Alcohol dependence with acute alcohol withdrawal ?Patient has been admitted to regular nursing floor being managed with phenobarb taper in addition to symptomatic treatment 2. Polysubstance abuse ?Including alcohol, tobacco, methamphetamines. Counseled on cessation 3. Hypertension - Blood pressure controlled, home medications continued with dose adjustment as needed 4. Hypothyroidism - Patient is on levothyroxine home dose continued 5. Obstructive sleep apnea ?On CPAP at night 6. Obesity with BMI of 40.6 ?Weight loss advised 7. Chronic pain syndrome ?Patient is on Lyrica 8. Perimenopausal symptoms ?Patient has history of hysterectomy as a result of fibroids. Currently on estrogen replacement 9. DVT prophylaxis ?Lovenox Inpatient E&M: 11468 Subs Hosp L2
[2020-06-11 08:15] VITALS: BP 106/76; PULSE 63; RESP 18; TEMP 36.1; O2SAT 94
[2020-06-11] MEDS: Pregabalin 50 MG Capsule 200 MG PO ×2 (09:46→21:38)
[2020-06-11] MEDS: Thiamine Hydrochloride 100 MG Tablet PO (09:47)
[2020-06-11] MEDS: hydroCHLOROthiazide 12.5mg 12.5 MG PO (09:47)
[2020-06-11] MEDS: amLODIPine 10 MG Tablet PO (09:47)
[2020-06-11] MEDS: Folic Acid 1 MG Tablet PO (09:47)
[2020-06-11] MEDS: Estrogens,Conj. 1.25 MG Tablet PO (09:47)
[2020-06-11] MEDS: Acetaminophen 325 MG Tablet 650 MG PO ×2 (09:52→17:04)
--- NOTE | 2020-06-11 10:59 | ADDICTION ---
This television writer met wit PT in her room to complete ASAM, MSE, DUDIT, AUDIT assessments and to plan for discharge. PT A/Ox4, but appears to be experiencing potential auditory hallucinations (rpts hearing snakes in her room) and paranoid hallucinations (rpts seeing things in photographs that others do not see including: sex dolls in her bed with her after she falls asleep, women in her home). She is not currently appropriate for Residential treatment based on potential psychosis symptoms but will continue to monitor PT as symptoms are likely related to methamphetamine use. Pt cooperative. All assessments / d/c plan completed, faxed to [facility] and placed in PT chart. PT scheduled for assessment with Josias on 06/18/20 and is amiable to this appt. She plans to d/c home but is considering engaging in residential treatment, if appropriate, upon completing medical withdrawal management.
[2020-06-11 12:30] VITALS: BP 99/66; PULSE 75; RESP 18; TEMP 35.8; O2SAT 96
--- NOTE | 2020-06-11 16:07 | CHAPLAIN ---
Type of Pastoral Visit ___ Initial Visit ___ Follow-up Visit ___ On-call Visit ___ General Patient Visit ___ Spiritual Assessment ___ Family Conference ___ Bereavement ___ Rapid Response ___ Code Blue _x__ Other (describe below) Pastoral Care Referral From _x__ Patient ___ Family ___ Nurse ___ Physician ___ [employer] Sales Representative ___ Compliance Officer ___ Other (describe below) Sacrament/Intervention ___ Active listening ___ Anointing ___ Mandaen ___ Bereavement ___ Communion ___ Ksenia exploration ___ ___ Life review ___ Prayer ___ Reconciliation ___ Sacrament of Sick ___ Supportive presence ___ Wedding ___ Other (describe below) Pastoral Comments patient is sleeping and does not awaken to her name;
[2020-06-11 16:30] VITALS: BP 122/82; PULSE 75; RESP 18; TEMP 36.2; O2SAT 95
[2020-06-11 21:29] VITALS: BP 117/80; PULSE 69; RESP 16; TEMP 36.6; O2SAT 98
[2020-06-11] MEDS: Menthol/Lanolin/Calamine/Znox 113 GM Tube 1 APPLIC TOPICAL (21:41)
--- NOTE | 2020-06-11 23:52 | PCS.PANDOC ---
PANDEMIC DOCUMENTATION INITIATED: Date: 06/11/20 Time: 1914
[2020-06-12] MEDS: Acetaminophen 325 MG Tablet 650 MG PO ×2 (02:27→14:08)
[2020-06-12] MEDS: Phenobarbital 32.4 MG Tablet 64.8 MG PO ×6 (02:28→21:05)
[2020-06-12 02:35] VITALS: BP 109/72; PULSE 67; RESP 18; TEMP 36.4; O2SAT 99
[2020-06-12] MEDS: Levothyroxine 100 MCG Tablet PO (06:10)
[2020-06-12 07:21] VITALS: O2SAT 97
--- NOTE | 2020-06-12 07:48 | PCM.PN.HOSP ---
Patient Problems: Active and Suspected Problems (Last Reviewed 06/10/20 @ 21:[address] Simone Lazo MD) Alcohol withdrawal (Acute) Withdrawal from methamphetamine (Acute) Reason for Visit: Polysubstance abuse Acute alcohol withdrawal Subjective: Patient is a 50-year-old lady with history of polysubstance abuse admitted with alcohol and methamphetamines presented with acute alcohol withdrawal 06/12/2020; patient seen much more awake compared to the previous day. Patient did express a desire to be discharged to a residential facility. Consult placed to case management Objective: GENERAL: cooperative HEENT: Atraumatic; EYES; Anicteric, Normal Conjunctiva NECK; supple, normal thyroid, RESPIRATORY: Diminished to auscultation CARDIOVASCULAR: Regular S1 S2, GI: soft, normoactive bowel sounds, : No Renal angle tenderness; EXTREMITIES: No edema, no clubbing, MUSCULOSKELETAL: no muscle waisting NEURO: Awake; no lateralizing signs. SKIN: No Rash PSYCH; Flat affect Vitals/I&O's: Vital Signs Temp Pulse Resp BP Pulse Ox 97.5 F L 67 18 109/72 97 06/12/20 02:35 06/12/20 02:35 06/12/20 02:35 06/12/20 02:35 06/12/20 07:21 Oxygen Delivery Method Room Air Weight: 107.3 kg Body Mass Index (BMI) 40.6 Finger Stick Blood Glucose 91 Intake and Output for Last 24 Hours 06/10/20 06/11/20 06/12/20 23:59 23:59 23:59 Intake Total 1000 / 1500 1100 / 1100 750 / 750 Balance 1000 / 1500 1100 / 1100 750 / 750 Current Medications Acetaminophen (Acetaminophen 325 Mg Tablet) 650 mg PO Q6H PRN PRN PRN Reason: Pain 1-10 or temp>100.4 Last Admin: 06/12/20 02:27 Dose: 650 mg Documented by: Amlodipine Besylate (Amlodipine 10 Mg Tablet) 10 mg PO DAILY [facility] Last Admin: 06/11/20 09:47 Dose: 10 mg Documented by: Calamine/Phenol (Menthol/Lanolin/Calamine/Znox 113 Gm Tube) 1 applic TOPICAL BID [facility]; Protocol Last Admin: 06/11/20 21:41 Dose: 1 applicatio Documented by: Dicyclomine HCl (Dicyclomine 10 Mg Capsule) 20 mg PO Q6H PRN PRN PRN Reason: abdominal discomfort Estrogens Conjugated (Estrogens,Conj. 1.25 Mg Tablet) 1.25 mg PO DAILY [facility] Last Admin: 06/11/20 09:47 Dose: 1.25 mg Documented by: Folic Acid (Folic Acid 1 Mg Tablet) 1 mg PO DAILY@0800 [facility] Last Admin: 06/11/20 09:47 Dose: 1 mg Documented by: Hydrochlorothiazide (Hydrochlorothiazide 12.5mg) 12.5 mg PO DAILY [facility] Last Admin: 06/11/20 09:47 Dose: 12.5 mg Documented by: Hydroxyzine Pamoate (Hydroxyzine Leela 25 Mg Capsule) 50 mg PO Q4H PRN PRN PRN Reason: mild anxiety Last Admin: 06/11/20 22:02 Dose: 50 mg Documented by: Levothyroxine Sodium (Levothyroxine 100 Mcg Tablet) 100 mcg PO DAILY@0600 [facility] Last Admin: 06/12/20 06:10 Dose: 100 mcg Documented by: Loperamide HCl (Loperamide 2 Mg Capsule) 2 mg PO Q4H PRN PRN PRN Reason: LOOSE STOOLS Nicotine (Nicotine 21 Mg Patch) 21 mg TD DAILY [facility] Last Admin: 06/11/20 09:47 Dose: 21 mg Documented by: Ondansetron HCl (Ondansetron 8 Mg Tablet) 8 mg PO Q8H PRN PRN PRN Reason: NAUSEA Last Admin: 06/11/20 02:26 Dose: 8 mg Documented by: Phenobarbital (Phenobarbital 32.4 Mg Tablet) 64.8 mg PO Q4H [facility]; Taper Stop: 06/15/20 05:59 Last Admin: 06/12/20 06:09 Dose: 64.8 mg Documented by: Pregabalin (Pregabalin 50 Mg Capsule) 200 mg PO BID [facility] Last Admin: 06/11/20 21:38 Dose: 200 mg Documented by: Sodium Chloride (0.9% Saline Lock 10 Ml Syringe) 10 - 40 ml IV UD PRN PRN Reason: SALINE FLUSH Thiamine HCl (Thiamine Hydrochloride 100 Mg Tablet) [facility] Last Admin: 06/11/20 09:47 Dose: 100 mg Documented by: Trazodone HCl (Trazodone 100 Mg Tablet) 100 mg PO QHS PRN PRN Reason: INSOMNIA STROKE Vital Signs/Narrative: Vital Signs Pulse Ox 06/12/20 07:21 97 Medical Necessity - Tobacco Use Smoking Status: Current every day smoker Tobacco Use: Cigarettes Assessment/Plan All Active Problems (Last Reviewed 06/10/20 @ 21:[address] Simone Lazo MD) Alcohol withdrawal (Acute) Withdrawal from methamphetamine (Acute) Patient is a 50-year-old lady with history of polysubstance abuse admitted with alcohol and methamphetamines presented with acute alcohol withdrawal 1. Alcohol dependence with acute alcohol withdrawal ?Patient has been admitted to regular nursing floor being managed with phenobarb taper in addition to symptomatic treatment - 06/12/2020; patient seen much more awake compared to the previous day. Patient did express a desire to be discharged to a residential facility. Consult placed to case management 2. Polysubstance abuse ?Including alcohol, tobacco, methamphetamines. Counseled on cessation 3. Hypertension - Blood pressure controlled, home medications continued with dose adjustment as needed 4. Hypothyroidism - Patient is on levothyroxine home dose continued 5. Obstructive sleep apnea ?On CPAP at night 6. Obesity with BMI of 40.6 ?Weight loss advised 7. Chronic pain syndrome ?Patient is on Lyrica 8. Perimenopausal symptoms ?Patient has history of hysterectomy as a result of fibroids. Currently on estrogen replacement 9. DVT prophylaxis ?Lovenox Inpatient E&M: 56010 Subs Hosp L2
[2020-06-12 08:04] VITALS: BP 96/69; PULSE 59; RESP 18; TEMP 36.3; O2SAT 98
[2020-06-12] MEDS: hydrOXYzine PAM 25 MG Capsule 50 MG PO ×2 (08:10→14:09)
[2020-06-12] MEDS: Folic Acid 1 MG Tablet PO (08:10)
[2020-06-12] MEDS: Thiamine Hydrochloride 100 MG Tablet PO (08:10)
[2020-06-12 09:29] VITALS: BP 102/70; PULSE 68; RESP 18; TEMP 36.4; O2SAT 99
[2020-06-12] MEDS: hydroCHLOROthiazide 12.5mg 12.5 MG PO (09:31)
[2020-06-12] MEDS: Menthol/Lanolin/Calamine/Znox 113 GM Tube 1 APPLIC TOPICAL ×2 (09:31→21:07)
[2020-06-12] MEDS: amLODIPine 10 MG Tablet PO (09:31)
[2020-06-12] MEDS: Pregabalin 50 MG Capsule 200 MG PO ×2 (09:34→21:05)
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
[2020-06-12] MEDS: Estrogens,Conj. 1.25 MG Tablet PO (09:37)
[2020-06-12 14:01] VITALS: BP 116/68; PULSE 97; RESP 18; TEMP 36.7; O2SAT 97
--- NOTE | 2020-06-12 14:19 | NURSING ---
message left with Zunilda from 180 as pt requested that pt would like to rediscuss discharge plan, doesn't feel could go to [place]
[2020-06-12 21:00] VITALS: BP 140/82; PULSE 81; RESP 18; TEMP 36.7; O2SAT 96
[2020-06-13 02:32] VITALS: BP 125/66; PULSE 67; RESP 18; TEMP 36.7; O2SAT 99
[2020-06-13] MEDS: Phenobarbital 32.4 MG Tablet 64.8 MG PO ×2 (02:34→05:50)
[2020-06-13] MEDS: Levothyroxine 100 MCG Tablet PO (05:50)
--- NOTE | 2020-06-13 07:38 | PCM.PN.HOSP ---
Patient Problems: Active and Suspected Problems (Last Reviewed 06/10/20 @ 21:[address] Simone Lazo MD) Alcohol withdrawal (Acute) Withdrawal from methamphetamine (Acute) Reason for Visit: Acute alcohol withdrawal Subjective: Patient deemed stable for discharge Objective: GENERAL: cooperative HEENT: Atraumatic; EYES; Anicteric, Normal Conjunctiva NECK; supple, normal thyroid, RESPIRATORY: Diminished to auscultation CARDIOVASCULAR: Regular S1 S2, GI: soft, normoactive bowel sounds, : No Renal angle tenderness; EXTREMITIES: No edema, no clubbing, MUSCULOSKELETAL: no muscle waisting NEURO: Awake; no lateralizing signs. SKIN: No Rash PSYCH; Flat affect Vitals/I&O's: Vital Signs Temp Pulse Resp BP Pulse Ox 98.1 F 67 18 125/66 H 99 06/13/20 02:32 06/13/20 02:32 06/13/20 02:32 06/13/20 02:32 06/13/20 02:32 Oxygen Delivery Method Room Air Weight: 107.3 kg Body Mass Index (BMI) 40.6 Finger Stick Blood Glucose 91 Intake and Output for Last 24 Hours 06/11/20 06/12/20 06/13/20 23:59 23:59 23:59 Intake Total 1100 / 1100 1760 / 1760 250 / 250 Balance 1100 / 1100 1760 / 1760 250 / 250 Current Medications Acetaminophen (Acetaminophen 325 Mg Tablet) 650 mg PO Q6H PRN PRN PRN Reason: Pain 1-10 or temp>100.4 Last Admin: 06/12/20 14:08 Dose: 650 mg Documented by: Amlodipine Besylate (Amlodipine 10 Mg Tablet) 10 mg PO DAILY [facility] Last Admin: 06/12/20 09:31 Dose: 10 mg Documented by: Calamine/Phenol (Menthol/Lanolin/Calamine/Znox 113 Gm Tube) 1 applic TOPICAL BID [facility]; Protocol Last Admin: 06/12/20 21:07 Dose: 1 applicatio Documented by: Dicyclomine HCl (Dicyclomine 10 Mg Capsule) 20 mg PO Q6H PRN PRN PRN Reason: abdominal discomfort Estrogens Conjugated (Estrogens,Conj. 1.25 Mg Tablet) 1.25 mg PO DAILY [facility] Last Admin: 06/12/20 09:37 Dose: 1.25 mg Documented by: Folic Acid (Folic Acid 1 Mg Tablet) 1 mg PO DAILY@0800 [facility] Last Admin: 06/12/20 08:10 Dose: 1 mg Documented by: Hydrochlorothiazide (Hydrochlorothiazide 12.5mg) 12.5 mg PO DAILY [facility] Last Admin: 06/12/20 09:31 Dose: 12.5 mg Documented by: Hydroxyzine Pamoate (Hydroxyzine Leela 25 Mg Capsule) 50 mg PO Q4H PRN PRN PRN Reason: mild anxiety Last Admin: 06/12/20 14:09 Dose: 50 mg Documented by: Levothyroxine Sodium (Levothyroxine 100 Mcg Tablet) 100 mcg PO DAILY@0600 [facility] Last Admin: 06/13/20 05:50 Dose: 100 mcg Documented by: Loperamide HCl (Loperamide 2 Mg Capsule) 2 mg PO Q4H PRN PRN PRN Reason: LOOSE STOOLS Nicotine (Nicotine 21 Mg Patch) 21 mg TD DAILY [facility] Last Admin: 06/12/20 09:31 Dose: 21 mg Documented by: Ondansetron HCl (Ondansetron 8 Mg Tablet) 8 mg PO Q8H PRN PRN PRN Reason: NAUSEA Last Admin: 06/11/20 02:26 Dose: 8 mg Documented by: Phenobarbital (Phenobarbital 32.4 Mg Tablet) 64.8 mg PO Q6H [facility]; Taper Stop: 06/15/20 05:59 Last Admin: 06/13/20 05:50 Dose: 64.8 mg Documented by: Pregabalin (Pregabalin 50 Mg Capsule) 200 mg PO BID [facility] Last Admin: 06/12/20 21:05 Dose: 200 mg Documented by: Sodium Chloride (0.9% Saline Lock 10 Ml Syringe) 10 - 40 ml IV UD PRN PRN Reason: SALINE FLUSH Thiamine HCl ([facility] Hydro[facility] 100 Mg Tablet) [facility] Last Admin: 06/12/20 08:10 Dose: 100 mg Documented by: Trazodone HCl (Trazodone 100 Mg Tablet) 100 mg PO QHS PRN PRN Reason: INSOMNIA Medical Necessity - Tobacco Use Smoking Status: Current every day smoker Tobacco Use: Cigarettes Assessment/Plan All Active Problems (Last Reviewed 06/10/20 @ 21:[address] Simone Lazo MD) Alcohol withdrawal (Acute) Withdrawal from methamphetamine (Acute) Patient is a 50-year-old lady with history of polysubstance abuse admitted with alcohol and methamphetamines presented with acute alcohol withdrawal 1. Alcohol dependence with acute alcohol withdrawal ?Patient has been admitted to regular nursing floor being managed with phenobarb taper in addition to symptomatic treatment - 06/12/2020; patient seen much more awake compared to the previous day. Patient did express a desire to be discharged to a residential facility. Consult placed to case management 2. Polysubstance abuse ?Including alcohol, tobacco, methamphetamines. Counseled on cessation 3. Hypertension - Blood pressure controlled, home medications continued with dose adjustment as needed 4. Hypothyroidism - Patient is on levothyroxine home dose continued 5. Obstructive sleep apnea ?On CPAP at night 6. Obesity with BMI of 40.6 ?Weight loss advised 7. Chronic pain syndrome ?Patient is on Lyrica 8. Perimenopausal symptoms ?Patient has history of hysterectomy as a result of fibroids. Currently on estrogen replacement 9. DVT prophylaxis ?Lovenox
[2020-06-13 08:32] VITALS: BP 107/73; PULSE 70; RESP 14; TEMP 36.4; O2SAT 100
[2020-06-13 08:57] VITALS: BP 107/73; PULSE 70; RESP 14; TEMP 36.4; O2SAT 100
[2020-06-13] MEDS: Estrogens,Conj. 1.25 MG Tablet PO (09:01)
[2020-06-13] MEDS: Folic Acid 1 MG Tablet PO (09:01)
[2020-06-13] MEDS: Thiamine Hydrochloride 100 MG Tablet PO (09:01)
[2020-06-13] MEDS: hydroCHLOROthiazide 12.5mg 12.5 MG PO (09:01)
[2020-06-13] MEDS: Pregabalin 50 MG Capsule 200 MG PO (09:02)
[2020-06-13] MEDS: amLODIPine 10 MG Tablet PO (09:02)
--- NOTE | 2020-06-13 09:05 | PCM.DC ---
- Discharge Diagnoses Current Active Problems: Current Active and Chronic Problems (Last Reviewed 06/10/20 @ 21:[address] Simone Lazo MD) Alcohol withdrawal (Acute) Withdrawal from methamphetamine (Acute) Excessive somnolence disorder (Chronic) Illicit drug use, continuous (Chronic) BMI 40.0-44.9, adult (Chronic) ANNETTE (obstructive sleep apnea) (Chronic) Hypertension (Chronic) Hypothyroidism (acquired) (Chronic) previously treated for hyperthyroidism with medication History of appendectomy (Chronic) History of hysterectomy (Chronic) 2014 History of tubal ligation (Chronic) Abnormal EKG (Chronic) ADHD (attention deficit hyperactivity disorder) (Chronic) Labyrinthitis (Chronic) Vertigo (Chronic) Depression (Chronic) Anxiety disorder (Chronic) You will use the following diet at home:: No restrictions Discharge Activity: May not drive while taking narcotic pain medications. Allergies/Adverse Reactions: Allergies codeine Allergy (Verified 06/10/20 20:18) Itching lisinopril Allergy (Verified 06/10/20 20:18) Angioedema Medications to take at Discharge Estrogens, Conjugated [Premarin] 1.25 mg PO DAILY 04/23/14 Levothyroxine [Synthroid] 100 mcg PO DAILY 04/24/19 Pregabalin [Lyrica] 200 mg PO BID 04/24/19 Amlodipine Besylate [Norvasc] 10 mg PO DAILY 06/03/20 Dextroamphetamine/Amphetamine [Adderall 15 mg Tablet] 15 mg PO DAILY 06/03/20 Hydrochlorothiazide 12.5 mg PO DAILY 06/10/20 Folic Acid 1 mg PO DAILY@0800 #60 tab 06/13/20 Thiamine Hydrochloride [Vitamin B1] 100 mg PO DAILYCM #60 tab 06/13/20 hydrOXYzine pamoate capsule [Vistaril pamoate capsule] 50 mg PO Q4H PRN PRN #30 cap 06/13/20 The following prescriptions were given: Folic Acid 1 mg PO DAILY@0800 #60 tab Transmission Status: Pending to [facility] #30 hydrOXYzine pamoate capsule [Vistaril pamoate capsule] 50 mg PO Q4H PRN PRN #30 cap PRN Reason: mild anxiety Transmission Status: Pending to [facility] #30 Thiamine Hydrochloride [Vitamin B1] 100 mg PO DAILYCM #60 tab Transmission Status: Pending to [facility] #30 Primary Care Physician: Wili Valles MD [Primary Care Provider] - Please follow up with your Primary Care Physician in: in 1 week Test Results: Test results from this visit will be discussed in further detail at your follow-up appointment, if applicable. Please Follow Up With: 180 When: as scheduled Proposed Discharge Date: 06/13/20
--- NOTE | 2020-06-13 09:06 | PCM.DC.SUM ---
Discharge Date and Diagnosis - Problem List Patient Problems: Active and Suspected Problems (Last Reviewed 06/10/20 @ 21:[address] Simone Lazo MD) Alcohol withdrawal (Acute) Withdrawal from methamphetamine (Acute) Date of Admission: 06/10/20 Date of Discharge: 06/13/20 - Primary Discharge Diagnosis Acute Problems: Active Problems (Last Reviewed 06/10/20 @ 21:[address] Simone Lazo MD) Alcohol withdrawal (Acute) Withdrawal from methamphetamine (Acute) - Secondary Discharge Diagnosis Chronic Problems: Chronic Problems (Last Reviewed 06/10/20 @ 21:[address] Simone Lazo MD) Excessive somnolence disorder (Chronic) Illicit drug use, continuous (Chronic) BMI 40.0-44.9, adult (Chronic) ANNETTE (obstructive sleep apnea) (Chronic) Hypertension (Chronic) Hypothyroidism (acquired) (Chronic) previously treated for hyperthyroidism with medication History of appendectomy (Chronic) History of hysterectomy (Chronic) 2014 History of tubal ligation (Chronic) Abnormal EKG (Chronic) ADHD (attention deficit hyperactivity disorder) (Chronic) Labyrinthitis (Chronic) Vertigo (Chronic) Depression (Chronic) Anxiety disorder (Chronic) Hospital Course and Treatment Operations: None Summary of Care Provided: Patient is a 50-year-old lady with history of polysubstance abuse admitted with alcohol and methamphetamines presented with acute alcohol withdrawal 1. Alcohol dependence with acute alcohol withdrawal ?Patient has been admitted to regular nursing floor being managed with phenobarb taper in addition to symptomatic treatment - 06/12/2020; patient seen much more awake compared to the previous day. Patient did express a desire to be discharged to a residential facility. Consult placed to case management -06/13/2020; patient was deemed stable for discharge; she will follow-up with [facility] counseling services as outpatient 2. Polysubstance abuse ?Including alcohol, tobacco, methamphetamines. Counseled on cessation 3. Hypertension - Blood pressure controlled, home medications continued with dose adjustment as needed 4. Hypothyroidism - Patient is on levothyroxine home dose continued 5. Obstructive sleep apnea ?On CPAP at night 6. Obesity with BMI of 40.6 ?Weight loss advised 7. Chronic pain syndrome ?Patient is on Lyrica 8. Perimenopausal symptoms ?Patient has history of hysterectomy as a result of fibroids. Currently on estrogen replacement 9. DVT prophylaxis ?Lovenox Patient Problems: Active and Suspected Problems (Last Reviewed 06/10/20 @ 21:[address] Simone Lazo MD) Alcohol withdrawal (Acute) Withdrawal from methamphetamine (Acute) Objective: GENERAL: cooperative HEENT: Atraumatic; EYES; Anicteric, Normal Conjunctiva NECK; supple, normal thyroid, RESPIRATORY: Diminished to auscultation CARDIOVASCULAR: Regular S1 S2, GI: soft, normoactive bowel sounds, : No Renal angle tenderness; EXTREMITIES: No edema, no clubbing, MUSCULOSKELETAL: no muscle waisting NEURO: Awake; no lateralizing signs. SKIN: No Rash PSYCH; Flat affect - Physical Exam Vitals/I&O's: Vital Signs Temp Pulse Resp BP Pulse Ox 97.5 F L 70 14 107/73 100 06/13/20 08:57 06/13/20 08:57 06/13/20 08:57 06/13/20 08:57 06/13/20 08:57 Oxygen Delivery Method Room Air Weight: 107.3 kg Body Mass Index (BMI) 40.6 Finger Stick Blood Glucose 91 Intake and Output for Last 24 Hours 06/11/20 06/12/20 06/13/20 23:59 23:59 23:59 Intake Total 1100 / 1100 1760 / 1760 250 / 250 Balance 1100 / 1100 1760 / 1760 250 / 250 Current Medications Acetaminophen (Acetaminophen 325 Mg Tablet) 650 mg PO Q6H PRN PRN PRN Reason: Pain 1-10 or temp>100.4 Last Admin: 06/12/20 14:08 Dose: 650 mg Documented by: Amlodipine Besylate (Amlodipine 10 Mg Tablet) 10 mg PO DAILY [facility] Last Admin: 06/13/20 09:02 Dose: 10 mg Documented by: Calamine/Phenol (Menthol/Lanolin/Calamine/Znox 113 Gm Tube) 1 applic TOPICAL BID [facility]; Protocol Last Admin: 06/12/20 21:07 Dose: 1 applicatio Documented by: Dicyclomine HCl (Dicyclomine 10 Mg Capsule) 20 mg PO Q6H PRN PRN PRN Reason: abdominal discomfort Estrogens Conjugated (Estrogens,Conj. 1.25 Mg Tablet) 1.25 mg PO DAILY [facility] Last Admin: 06/13/20 09:01 Dose: 1.25 mg Documented by: Folic Acid (Folic Acid 1 Mg Tablet) 1 mg PO DAILY@0800 [facility] Last Admin: 06/13/20 09:01 Dose: 1 mg Documented by: Hydrochlorothiazide (Hydrochlorothiazide 12.5mg) 12.5 mg PO DAILY [facility] Last Admin: 06/13/20 09:01 Dose: 12.5 mg Documented by: Hydroxyzine Pamoate (Hydroxyzine Leela 25 Mg Capsule) 50 mg PO Q4H PRN PRN PRN Reason: mild anxiety Last Admin: 06/12/20 14:09 Dose: 50 mg Documented by: Levothyroxine Sodium (Levothyroxine 100 Mcg Tablet) 100 mcg PO DAILY@0600 [facility] Last Admin: 06/13/20 05:50 Dose: 100 mcg Documented by: Loperamide HCl (Loperamide 2 Mg Capsule) 2 mg PO Q4H PRN PRN PRN Reason: LOOSE STOOLS Nicotine (Nicotine 21 Mg Patch) 21 mg TD DAILY [facility] Last Admin: 06/13/20 09:01 Dose: 21 mg Documented by: Ondansetron HCl (Ondansetron 8 Mg Tablet) 8 mg PO Q8H PRN PRN PRN Reason: NAUSEA Last Admin: 06/11/20 02:26 Dose: 8 mg Documented by: Phenobarbital (Phenobarbital 32.4 Mg Tablet) 64.8 mg PO Q6H [facility]; Taper Stop: 06/15/20 05:59 Last Admin: 06/13/20 05:50 Dose: 64.8 mg Documented by: Pregabalin (Pregabalin 50 Mg Capsule) 200 mg PO BID [facility] Last Admin: 06/13/20 09:02 Dose: 200 mg Documented by: Sodium Chloride (0.9% Saline Lock 10 Ml Syringe) 10 - 40 ml IV UD PRN PRN Reason: SALINE FLUSH Thiamine HCl (Thiamine Hydrochloride 100 Mg Tablet) [facility] mg [facility] Last Admin: 06/13/20 09:01 Dose: 100 mg Documented by: Trazodone HCl (Trazodone 100 Mg Tablet) 100 mg PO QHS PRN PRN Reason: INSOMNIA Discharge Diet: No Restrictions Discharge Activity: May not drive while taking narcotic pain medications. Home Medications: Medications to take at Discharge Estrogens, Conjugated [Premarin] 1.25 mg PO DAILY 04/23/14 Levothyroxine [Synthroid] 100 mcg PO DAILY 04/24/19 Pregabalin [Lyrica] 200 mg PO BID 04/24/19 Amlodipine Besylate [Norvasc] 10 mg PO DAILY 06/03/20 Dextroamphetamine/Amphetamine [Adderall 15 mg Tablet] 15 mg PO DAILY 06/03/20 Hydrochlorothiazide 12.5 mg PO DAILY 06/10/20 Folic Acid 1 mg PO DAILY@0800 #60 tab 06/13/20 Thiamine Hydrochloride [Vitamin B1] 100 mg PO DAILYCM #60 tab 06/13/20 hydrOXYzine pamoate capsule [Vistaril pamoate capsule] 50 mg PO Q4H PRN PRN #30 cap 06/13/20 Following Prescriptions Were Given to Patient: Folic Acid 1 mg PO DAILY@0800 #60 tab Transmission Status: Received by [facility]30 hydrOXYzine pamoate capsule [Vistaril pamoate capsule] 50 mg PO Q4H PRN PRN #30 cap PRN Reason: mild anxiety Transmission Status: Received by [facility] Thiamine Hydrochloride [Vitamin B1] 100 mg PO DAILYCM #60 tab Transmission Status: Received by [facility]30 Primary Care Physician: Wili Valles MD [Primary Care Provider] - Please follow up with your Primary Care Physician in: in 1 week Please Follow Up With: 180 When: as scheduled Disposition: Home Minutes spent on discharge:: 45 Patient Condition:: Stable Medical Necessity - Tobacco Use Smoking Status: Current every day smoker Tobacco Use: Cigarettes Meaningful Use Info Meaningful Use Diagnoses (Choose all that apply): None applicable Inpatient E&M: 73994 Disch Hosp
[2020-06-13] MEDS: hydrOXYzine PAM 25 MG Capsule 50 MG PO (09:08)
[2020-06-13] MEDS: Acetaminophen 325 MG Tablet 650 MG PO (09:08)
[2020-06-13] MEDS: Menthol/Lanolin/Calamine/Znox 113 GM Tube 1 APPLIC TOPICAL (09:08)
--- NOTE | 2020-06-13 09:44 | ADDICTION ---
This medical writer met with PT in her room to finalize d/c plan. PT's plan was to directly admit into the [facility] for Psychiatry, however, PT changed her mind and is requesting to admit into [facility] residential treatment. This medical writer collaborated with [facility]. Director who will meet with PT on Thursday, 06/15. Pt will likely admit into Res. following this meeting. PT atul, was provided with community resources and this medical writer's contact information. PT To d/c today, plans to stay in a hotel until she is able to admit into Residential. Pt reports available sober and natural supports.
--- NOTE | 2020-06-13 11:52 | CASEMGMT ---
Social Work Note SW received message from Lainey at [facility] requesting H+P and discharge instructions be faxed to [facility]. MANUEL faxed documents to [facility]. 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
== END 2020-06-13 10:19 | disposition home or self-care (01) | DRG 775 ==
LOC: ED 20:47 → MS3 21:09
PROVIDERS: Admitting Provider Hospitalist; Emergency Provider Emergency Medicine; PCP Internal Medicine; Visit Provider Internal Medicine
DX: F10.239 Alcohol dependence with withdrawal, unspecified (principal); F12.10 Cannabis abuse, uncomplicated; G47.33 Obstructive sleep apnea (adult) (pediatric); I10 Essential (primary) hypertension; F15.23 Other stimulant dependence with withdrawal; G89.4 Chronic pain syndrome; E03.9 Hypothyroidism, unspecified; N95.1 Menopausal and female climacteric states; F32.9 Major depressive disorder, single episode, unspecified; F41.9 Anxiety disorder, unspecified; F90.9 Attention-deficit hyperactivity disorder, unspecified type; E66.9 Obesity, unspecified; Z68.41 Body mass index [BMI] 40.0-44.9, adult; Z90.49 Acquired absence of other specified parts of digestive tract; Z82.49 Family history of ischemic heart disease and other diseases of the circulatory system; Z80.0 Family history of malignant neoplasm of digestive organs; Z79.890 Hormone replacement therapy; Z90.710 Acquired absence of both cervix and uterus; Z98.51 Tubal ligation status; F17.210 Nicotine dependence, cigarettes, uncomplicated; Y90.9 Presence of alcohol in blood, level not specified
CPT/HCPCS: 80053; 80307; 82077; 99284; 99406; J7030; A4216

== ENCOUNTER → 2020-08-28 10:00 | Outpatient (CLI) | payer MEDICAID, SELFPAY ==
[2020-08-28 09:19] VITALS: BMI 40.5
[2020-08-28 12:55] LABS: ALB/GLOB Ratio 0.7 RATIO (0.9-2.4); AST(SGOT) 13 U/L (15-37); Alanine Aminotransfer ALT/SGPT 15 U/L (13-56); Albumin, Serum 3.5 g/dL (3.2-5.0); Alkaline Phosphatase 91 U/L (45-117); Anion Gap 7 (5-15); BUN 9 mg/dL (7-18); BUN/Creat Ratio 8.6 RATIO (10-20); Calcium,Total 9.4 mg/dL (8.5-10.1); Chloride 100 mmol/L (98-107); Cholesterol 251 mg/dL (200); Creatinine, Serum 1.05 mg/dL (0.55-1.02); EST Glomerular Filtration Rate 59 mL/min (>60); Est Glom Filt Rate - Afr Amer 72 mL/min (>60); Globulin 4.7 g/dL (2.2-4.2); Glucose 110 mg/dL (74-106); High Density Lipoprotein 114 mg/dL; Potassium 3.7 mmol/L (3.5-5.1); Protein, Total 8.2 g/dL (6.4-8.2); Sodium Level 135 mmol/L (136-145); Triglycerides 92 mg/dL; Very Low Density Lipoprotein 18 mg/dL (5-40)
== END ==
PROVIDERS: PCP Internal Medicine; Referring Provider Internal Medicine; Visit Provider Internal Medicine
DX: E03.9 Hypothyroidism, unspecified (principal); I10 Essential (primary) hypertension
CPT/HCPCS: 36415; 80053; 80061; 84443

== ENCOUNTER → 2020-10-02 10:10 | Outpatient (CLI) | payer MEDICAID, SELFPAY ==
[2020-10-02 09:50] VITALS: BMI 40.5
[2020-10-02 12:43] LABS: Erythrocyte Sedimentation Rate 32 mm/hr (0-30)
[2020-10-02 12:45] LABS: Absolute Lymphocyte Count 4.78 X10^3/uL (0.83-4.51); Absolute Neutrophil Count 3.6 X10^3/uL (2.0-7.7); Basophil# 0.08 X10^3/uL; Basophil% 0.9 % (0-1); Eosinophil# 0.28 X10^3/uL; Hematocrit 39.9 % (37-47); Hemoglobin 12.6 g/dL (12.0-15.0); Lymphocyte # 4.78 X10^3/ul (0.83-4.51); Lymphocyte % 51.2 % (19-41); Mean Corp Hgb Conc 31.6 g/dL (32-36); Mean Corpuscular Hgb 27.4 pg (27.0-32.0); Mean Corpuscular Volume 86.7 fL (81-99); Mean Platelet Vol. 10.8 fl (6.2-12.0); Monocyte# 0.58 X10^3/uL; Monocyte% 6.2 % (0-10); NRBC Flagged by Analyzer 0 % (0-5); Neutrophil # 3.59 X10^3/uL (2.7-7.7); Neutrophil % 38.5 % (47-70); Platelet Count 327 K/mm3 (150-450); RBC Distribution Width CV 12.9 % (11.6-14.6); RBC Distribution Width SD 40.6 fl (35.1-43.9); White Blood Count 9.3 K/mm3 (4.4-11.0)
[2020-10-02 12:58] LABS: ALB/GLOB Ratio 0.7 RATIO (0.9-2.4); AST(SGOT) 17 U/L (15-37); Alanine Aminotransfer ALT/SGPT 17 U/L (13-56); Albumin, Serum 3.1 g/dL (3.2-5.0); Alkaline Phosphatase 86 U/L (45-117); Anion Gap 5 (5-15); BUN 6 mg/dL (7-18); Calcium,Total 8.9 mg/dL (8.5-10.1); Chloride 99 mmol/L (98-107); Creatinine, Serum 0.86 mg/dL (0.55-1.02); EST Glomerular Filtration Rate 75 mL/min (>60); Est Glom Filt Rate - Afr Amer 91 mL/min (>60); Globulin 4.4 g/dL (2.2-4.2); Glucose 120 mg/dL (74-106); Potassium 3.2 mmol/L (3.5-5.1); Protein, Total 7.5 g/dL (6.4-8.2); Sodium Level 134 mmol/L (136-145)
== END ==
PROVIDERS: PCP Internal Medicine; Referring Provider Internal Medicine; Visit Provider Internal Medicine
DX: L50.9 Urticaria, unspecified (principal); E03.9 Hypothyroidism, unspecified
CPT/HCPCS: 36415; 80053; 84443; 85025; 85652

== ENCOUNTER → 2021-02-08 14:22 | Outpatient (CLI) | payer MEDICAID, SELFPAY ==
[2021-02-08 15:16] LABS: Absolute Lymphocyte Count 3.13 X10^3/uL (0.83-4.51); Absolute Neutrophil Count 3.1 X10^3/uL (2.0-7.7); Basophil# 0.05 X10^3/uL; Basophil% 0.7 % (0-1); Eosinophil# 0.24 X10^3/uL; Eosinophils% 3.4 % (0-5); Hematocrit 42.2 % (37-47); Hemoglobin 13.1 g/dL (12.0-15.0); Lymphocyte # 3.13 X10^3/ul (0.83-4.51); Mean Corpuscular Hgb 27.1 pg (27.0-32.0); Mean Corpuscular Volume 87.2 fL (81-99); Mean Platelet Vol. 10.2 fl (6.2-12.0); Monocyte# 0.55 X10^3/uL; Monocyte% 7.7 % (0-10); NRBC Flagged by Analyzer 0 % (0-5); Neutrophil # 3.13 X10^3/uL (2.7-7.7); Neutrophil % 43.9 % (47-70); Platelet Count 324 K/mm3 (150-450); RBC Distribution Width CV 11.6 % (11.6-14.6); RBC Distribution Width SD 37.2 fl (35.1-43.9); Red Blood Count 4.84 M/mm3 (4.2-5.4); White Blood Count 7.1 K/mm3 (4.4-11.0)
[2021-02-08 16:02] LABS: ALB/GLOB Ratio 0.6 RATIO (0.9-2.4); AST(SGOT) 14 U/L (15-37); Alanine Aminotransfer ALT/SGPT 18 U/L (13-56); Albumin, Serum 2.9 g/dL (3.2-5.0); Alkaline Phosphatase 90 U/L (45-117); Anion Gap 4 (5-15); BUN 9 mg/dL (7-18); BUN/Creat Ratio 10.9 RATIO (10-20); Calcium,Total 8.9 mg/dL (8.5-10.1); Chloride 103 mmol/L (98-107); Creatinine, Serum 0.82 mg/dL (0.55-1.02); EST Glomerular Filtration Rate 78 mL/min (>60); Est Glom Filt Rate - Afr Amer 95 mL/min (>60); Globulin 4.8 g/dL (2.2-4.2); Glucose 114 mg/dL (74-106); Potassium 3.9 mmol/L (3.5-5.1); Protein, Total 7.7 g/dL (6.4-8.2); Sodium Level 136 mmol/L (136-145)
== END ==
PROVIDERS: PCP Internal Medicine; Referring Provider Internal Medicine; Visit Provider Internal Medicine
DX: I10 Essential (primary) hypertension (principal)
CPT/HCPCS: 36415; 80053; 85025

== ENCOUNTER → 2021-04-30 14:17 | Outpatient (CLI) | payer MEDICAID, SELFPAY ==
--- NOTE | 2021-04-30 14:18 | BI_ITS ---
MAMMOGRAPHY - BILATERAL SCREENING REASON FOR EXAM: Female, 51 years old. Routine annual screening examination. PERTINENT HISTORY: Non-contributory. TECHNIQUE: Digital bilateral breast nate (3D mammographic acquisition) in the CC and MLO projections. 2-D mediolateral oblique (MLO) and craniocaudad (CC) views of both breasts were obtained. CAD: Full Field Digital Mammography with Computer Added Detection was performed. COMPARISON: Comparison is made with prior study -- 02/11/2013 and 06/18/2016. FINDINGS: Breast Composition: There are scattered areas of fibroglandular density. There are no dominant masses or suspicious calcifications. Stable small benign-appearing bilateral axillary lymph nodes. No other significant abnormalities are identified. There has been no significant change since the prior study. BI/SCRN MAMM (CAD)W/NATE BILAT IMPRESSION: Stable bilateral screening mammogram. Yearly follow-up mammogram recommended. (A) ASSESSMENT CATEGORY: BIRADS Category 2: Benign. A letter regarding these results will be sent to the patient by the facility within 30 days. Approximately 10% of breast cancers are not detected by mammography. A normal mammogram should not delay biopsy of a clinically suspicious abnormality. [id number] Electronically Signed: Deangelo Rivas MD at 14:58 EST , Service support ,
== END ==
PROVIDERS: PCP Internal Medicine; Visit Provider Internal Medicine
DX: Z12.31 Encounter for screening mammogram for malignant neoplasm of breast (principal)
CPT/HCPCS: 77063; 77067

== ENCOUNTER 2021-06-12 18:15 | Outpatient (CLI) | payer MEDICAID, SELFPAY ==
--- NOTE | 2021-06-12 18:16 | RAD_ITS ---
STUDY: X-RAY - LUMBAR SPINE REASON FOR EXAM: Female, 51 years old. Chronic Back pain TECHNIQUE: 3 view(s) of the lumbar spine were obtained. COMPARISON: 07/11/2019 FINDINGS: Normal lumbar lordosis. There is no substantial scoliosis. There is a normal alignment of the vertebrae. Normal vertebral bodies and endplates. Normal disc space heights. Facet hypertrophy in the lower lumbar spine. The soft tissue structures are unremarkable. RAD/Lumbar Spine 2 or 3 Views IMPRESSION: Degenerative changes of the spine, as detailed above. MRI would be useful. Electronically Signed: Juan Feldman MD at 8:47 EST ,
== END 2021-06-12 23:59 | disposition short-term general hospital (02) ==
LOC: RAD 18:16
PROVIDERS: PCP Internal Medicine; Visit Provider Internal Medicine
DX: M54.9 Dorsalgia, unspecified (principal); G89.29 Other chronic pain
CPT/HCPCS: 72100

== ENCOUNTER 2021-06-19 18:16 | Emergency (ER) | payer MEDICAID, SELFPAY ==
[2021-06-19 18:17] VITALS: BP 146/100; PULSE 100; RESP 19; TEMP 36.7; O2SAT 99; BMI 46.9
--- NOTE | 2021-06-19 18:45 | EKG12_ITS ---
Test Reason : DYSRHYTHMIA Blood Pressure : / mmHG Vent. Rate : 089 BPM Atrial Rate : 089 BPM P-R Int : 182 ms QRS Dur : 078 ms QT Int : 372 ms P-R-T Axes : 042 -07 059 degrees QTc Int : 452 ms Normal sinus rhythm Normal ECG Confirmed by YUMIKO CHAVEZ, JAMAAL ([id number]), food expeditor DOMINIQUE HORAN ([id number]) on 06/20/2021 11:10:56 AM Referred By: JOE Confirmed By:SONIA CALDERON MD
--- NOTE | 2021-06-19 18:50 | RAD_ITS ---
HISTORY: dyspnea EXAMINATION/TECHNIQUE: XR Chest 1 View: Portable upright AP chest x-ray COMPARISON: 06/03/20 FINDINGS: LINES/DEVICES: None. LUNGS: No consolidation, edema or effusion. No pneumothorax. MEDIASTINUM AND CARDIOVASCULAR STRUCTURES: Cardiac silhouette not enlarged. Central airways and mediastinal contour are unremarkable. BONES AND SOFT TISSUES: No acute bony abnormalities. RAD/Chest 1 View (Portable) IMPRESSION: No radiographic evidence of acute cardiopulmonary disease. at 1941 Reported and signed by: Ramez Walker MD Electronically Signed: Ramez Walker MD at 19:40 EST ,
--- NOTE | 2021-06-19 18:54 | EX.ED.DYSGE1 ---
HPI History of Present Illness Chief Complaint: Shortness of Breath Detail of Chief Complaint: Short of breath and chest tightness since yesterday Informant: patient Narrative Narrative: Patient presents to the emergency department stating that she has had some chest tightness and a cold feeling in her lungs when she breathes since yesterday. She is not had a cough. She also complains of back pain in her low back for 3 days that is without injury. She saw her primary care physician yesterday for the back pain and he ordered physical therapy and a topical patch for her back. She denies any pain rating down her legs or weakness in extremities. She denies any paresthesias. She has not had exposure to Covid as far she knows and has been vaccinated and has had the booster. She denies fevers or sore throat. [facility] Medical History Abnormal EKG ADHD (attention deficit hyperactivity disorder) Anxiety Chronic back pain Excessive somnolence disorder Exposure to COVID-19 virus Hypersomnolence Hypertension Hypothyroidism (acquired) Labyrinthitis Suspected COVID-19 virus infection Upper respiratory infection Urticaria Vertigo Home Medications amlodipine 10 mg tablet 10 mg PO DAILY #90 tab 10/02/20 [Rx Last Taken Unknown] folic acid 1 mg tablet 1 mg PO DAILY@0800 #60 tab 10/02/20 [Rx Last Taken Unknown] hydrochlorothiazide 12.5 mg tablet 12.5 mg PO QAM #90 tab 10/02/20 [Rx Last Taken Unknown] hydroxyzine pamoate 25 mg capsule 50 mg PO Q6H PRN #60 cap 10/02/20 [Rx Last Taken Unknown] thiamine HCl (vitamin B1) 100 mg tablet 100 mg PO DAILYCM #90 tab 10/02/20 [Rx Last Taken Unknown] potassium chloride 20 mEq tablet,extended release 40 meq PO BID 90 Days #360 tab 12/27/20 [Rx Last Taken Unknown] levothyroxine 100 mcg tablet 100 mcg PO DAILY #90 tab 02/08/21 [Rx Last Taken Unknown] conjugated estrogens 1.25 mg tablet 1.25 mg PO DAILY #60 tab 03/15/21 [Rx Last Taken Unknown] duloxetine 30 mg capsule,delayed release 30 mg PO BID #120 cap 06/11/21 [Rx Last Taken Unknown] energy pills PO 06/18/21 [History Last Taken Unknown] lidocaine 5 % topical patch 2 patch TOPICAL DAILY PRN #30 ea 06/18/21 [Rx Last Taken Unknown] vitamin D, zinc, and magnesium PO 06/18/21 [History Last Taken Unknown] lansoprazole [Prevacid SoluTab] 30 mg PO DAILY #14 tab 06/19/21 [Rx Last Taken Unknown] Allergy/AdvReac Type Severity Reaction Status Date / Time codeine Allergy Itching Verified 06/19/21 18:17 lisinopril Allergy Angioedema Verified 06/19/21 18:17 Family History Sister , of [place] CAD (coronary artery disease) Myocardial infarction Sudden cardiac Father Pancreatic cancer Surgical History History of appendectomy History of bilateral carpal tunnel release History of hysterectomy History of tubal ligation Social History Smoking Status: Current every day smoker tobacco type: cigarettes Tobacco: How many years used: 30 alcohol intake: current alcohol intake frequency: holidays/special occasions only substance use type: marijuana what type of physical activity do you participate in: none ROS ROS ED Constitutional Constitutional ED: Reports systems reviewed and no addt'l complaints, except as documented; Denies body ache(s), change in weight or chills Eyes Eyes: Denies acute decrease in peripheral vision, change in vision, double vision or loss of vision ENT ENT ED: Reports none; Denies ear pain, lip swelling, loss taste/smell, neck pain, otalgia or sore throat Cardiovascular Cardiovascular: Reports none and chest pain; Denies abdominal pain, chest pain with activity, leg edema, lightheadedness, palpitations, rapid heart rate or syncope Respiratory/Chest Respiratory/Chest: Reports none and dyspnea; Denies change in mental status, dry cough, hemoptysis, shortness of breath at rest or shortness of breath with exertion Gastrointestinal Gastrointestinal: Reports none; Denies abdominal pain, change in stool character, diarrhea, hematemesis, hematochezia, melena, rectal bleeding or vomiting Genitourinary Genitourinary ED: Reports none; Denies abdominal discomfort, anuria, dysuria, genital pain or polyuria Musculoskeletal Musculoskeletal: Reports none and back pain; Denies arthralgias, difficulty walking, extremity pain, muscle weakness or myalgias Integumentary Reports none; Denies abscess or rash Neurologic Neurologic: Reports none; Denies abnormal gait, confusion, focal weakness, frequent falls, headache(s), loss of vision, numbness, paresthesias, radicular pain, vertigo or weakness Psychiatric Psychiatric: Reports systems reviewed and no addt'l complaints, except as documented and none; Denies behavioral changes, confusion, difficulty concentrating, hallucinations, suicidal ideation, tactile hallucinations or visual hallucinations Endocrine Endocrinology: Denies none, cold intolerance, excessive sweating, fatigue or heat intolerance Hematologic/Lymphatic Hematologic/Lymphatic: Reports none; Denies anemia, easy bleeding or easy bruising Allergic/Immunologic Allergic/Immunologic ED: Denies as per HPI, none, lip swelling, mouth swelling, throat swelling, tongue swelling or hives EXAM Physical Exam Const Vital Signs: 06/19/21 18:17 06/19/21 20:45 06/19/21 20:50 Temperature 98.0 F 97.8 F Temperature Source Temporal Temporal Pulse Rate 100 88 Respiratory Rate 19 H 18 Respiratory Effort Short of Breath Blood Pressure 146/100 H 135/85 H Blood Pressure Mean 115 101 Pulse Ox 99 99 Oxygen Delivery Method Room Air Positive well nourished and well developed General Appearance ED: well developed and NAD HEENT Reports TM's clear and moist mucous membranes normocephalic and atraumatic; Negative for trauma or tenderness Tympanic Membrane ED: Yes TM's clear Eyes PERRL and EOMs intact bilaterally General Eye ED: Negative for pale conjunctiva or scleral icterus Neck no lymphadenopathy, supple and no JVD General: Negative for tenderness Chest Wall inspection of chest normal and palpation of chest normal Chest: Negative for tenderness Resp normal respiratory effort and clear to auscultation bilaterally Effort and Inspection: Negative for respiratory distress or pain with movement Auscultation: Negative for rhonchi, wheezes or diminished lung sounds Cardio regular rate, regular rhythm, S1 normal heart sound, S2 normal heart sound and no murmurs Peripheral Pulses: pulses 2+ throughout GI normal to inspection, nondistended, normoactive bowel sounds, soft to palpation, non-tender, non-distended and no masses Back/Spine no CVA tenderness and no thoracic nor lumbar tenderness Extremity normal to inspection General Extremety ED: Negative for edema General Extremity: Negative for edema Neuro oriented x3, CN's II-XII intact bilaterally, no sensory deficits noted and gait normal Sensorium / Orientation: awake, alert, oriented to person, oriented to place and oriented to time Motor Exam: strength 5/5 throughout and strength abnormal Psych mental status grossly normal Skin no rashes or lesions noted and no wounds MDM MDM MDM Narrative Medical decision making narrative: IV line established on arrival. EKG obtained was unremarkable. Lab work obtained was essentially normal with a normal troponin with continuous chest pain for almost 24 hours. Her heart score is a 2 and suspicion is low for acute coronary syndrome. Patient will be given a GI cocktail. I will write her a prescription for Prevacid. Patient advised to follow-up with her primary care physician in 3 to 5 days. She is to return if condition should worsen anyway. Lab Data Attestation: I reviewed the patient's lab results. Labs: Laboratory Results - last 24 hr 06/19/21 06/19/21 06/19/21 20:15 20:15 20:15 WBC 8.5 RBC 4.90 Hgb 14.0 Hct 41.7 MCV 85.1 MCH 28.6 MCHC 33.6 RDW Std Deviation 37.5 RDW Coeff of [place] 12.1 Plt Count 286 MPV 10.9 Immature Gran % (Auto) 0.200 Neut % (Auto) 44.0 L Lymph % (Auto) 46.3 H [place] % (Auto) 5.9 Eos % (Auto) 2.7 Baso % (Auto) 0.9 Absolute Neuts (auto) 3.8 Absolute Lymphs (auto) 3.95 Nucleated RBC % 0 D-Dimer Quant (PE/DVT) 0.32 Sodium 135 L Potassium 4.5 Chloride 99 Carbon Dioxide 30.0 Anion Gap 6 BUN 9 Creatinine 1.14 H Estim Creat Clear Calc 51.55 Est GFR (MDRD) Af Amer 65 Est GFR (MDRD) Non-Af 54 L BUN/Creatinine Ratio 7.9 L Glucose 106 Calcium 9.6 Troponin I High Sens 8 Urine Color Urine Clarity Urine pH Ur Specific [place] Urine Protein Urine Glucose (UA) Urine Ketones Urine Occult Blood Urine Nitrite Urine Bilirubin Urine Urobilinogen Ur Leukocyte Esterase Urine RBC Urine WBC Ur Squamous Epith Cells Urine Bacteria Urine Mucus 06/19/21 21:00 WBC RBC Hgb Hct MCV MCH MCHC RDW Std Deviation RDW Coeff of [place] Plt Count MPV Immature Gran % (Auto) Neut % (Auto) Lymph % (Auto) [place] % (Auto) Eos % (Auto) Baso % (Auto) Absolute Neuts (auto) Absolute Lymphs (auto) Nucleated RBC % D-Dimer Quant (PE/DVT) Sodium Potassium Chloride Carbon Dioxide Anion Gap BUN Creatinine Estim Creat Clear Calc Est GFR (MDRD) Af Amer Est GFR (MDRD) Non-Af BUN/Creatinine Ratio Glucose Calcium Troponin I High Sens Urine Color Yellow Urine Clarity Clear Urine pH 6.0 Ur Specific [place] 1.015 Urine Protein Negative Urine Glucose (UA) Normal Urine Ketones Negative Urine Occult Blood Negative Urine Nitrite Negative Urine Bilirubin Negative Urine Urobilinogen Normal Ur Leukocyte Esterase Negative Urine RBC 0 SEEN Urine WBC 0 SEEN Ur Squamous Epith Cells 0-5 SEEN Urine Bacteria 0 SEEN Urine Mucus 0 SEEN Radiography Chest X-Ray - ED: 1 View Diagnostic Testing: Clinical Impression(s) from Imaging Studies Chest X-Ray 06/19/21 18:50 IMPRESSION: No radiographic evidence of acute cardiopulmonary disease. at 1939 Reported and signed by: Ramez Walker MD Electronically Signed: Ramez Walker MD at 19:40 EST Reading Location ID and State: [address] [place] [address] Tel , Service support , 1 view chest x-ray obtained interpreted by myself as no acute disease process. EKG Initial EKG: Attestation: I personally reviewed and interpreted this EKG as follows: Comments: Sinus rhythm with a ventricular rate of 89 bpm with no acute ST segment changes Discharge Plan Triage Chief Complaint: Shortness of Breath ED Provider: Laine Washburn Dx/Rx/DC Orders Clinical Impression: Chest pain Instructions: ED Chest Pain, Uncertain Cause Prescriptions: New lansoprazole [Prevacid SoluTab] 30 mg tablet,disintegrat, delay rel 30 mg PO DAILY Qty: 14 RF: 0 No Action thiamine HCl (vitamin B1) 100 mg tablet 100 mg PO DAILYCM Qty: 90 RF: 3 hydrochlorothiazide 12.5 mg tablet 12.5 mg PO QAM Qty: 90 RF: 3 amlodipine 10 mg tablet 10 mg PO DAILY Qty: 90 RF: 3 folic acid 1 mg tablet 1 mg PO DAILY@0800 Qty: 60 RF: 3 hydroxyzine pamoate 25 mg capsule 50 mg PO Q6H PRN (Reason: anxiety) Qty: 60 RF: 1 levothyroxine 100 mcg tablet 100 mcg PO DAILY Qty: 90 RF: 1 energy pills PO RF: 0 vitamin D, zinc, and magnesium PO RF: 0 lidocaine 5 % adhesive patch,medicated 2 patch topical DAILY PRN (Reason: low back pain) Qty: 30 RF: 1 potassium chloride 20 mEq tablet extended release 40 meq PO BID 90 Days Qty: 360 RF: 1 conjugated estrogens 1.25 mg tablet 1.25 mg PO DAILY Qty: 60 RF: 1 duloxetine 30 mg capsule,delayed release(DR/EC) 30 mg PO BID Qty: 120 RF: 2 Primary Care Provider: Shahzad Reynolds Referrals: Shahzad Reynolds MD [Primary Care Provider] - 3-5 Days Disposition Disposition: Home, Self Care
[2021-06-19 20:35] LABS: Absolute Lymphocyte Count 3.95 X10^3/uL (0.83-4.51); Absolute Neutrophil Count 3.8 X10^3/uL (2.0-7.7); Basophil# 0.08 X10^3/uL; Basophil% 0.9 % (0-1); Eosinophil# 0.23 X10^3/uL; Eosinophils% 2.7 % (0-5); Hematocrit 41.7 % (37-47); Lymphocyte # 3.95 X10^3/ul (0.83-4.51); Lymphocyte % 46.3 % (19-41); Mean Corp Hgb Conc 33.6 g/dL (32-36); Mean Corpuscular Hgb 28.6 pg (27.0-32.0); Mean Corpuscular Volume 85.1 fL (81-99); Mean Platelet Vol. 10.9 fl (6.2-12.0); Monocyte% 5.9 % (0-10); NRBC Flagged by Analyzer 0 % (0-5); Neutrophil # 3.75 X10^3/uL (2.7-7.7); Platelet Count 286 K/mm3 (150-450); RBC Distribution Width CV 12.1 % (11.6-14.6); RBC Distribution Width SD 37.5 fl (35.1-43.9); White Blood Count 8.5 K/mm3 (4.4-11.0)
[2021-06-19] MEDS: 0.9% Normal Saline 1,000 ML 150 ML IV (20:44)
[2021-06-19 20:45] VITALS: BP 135/85; PULSE 88; RESP 18; TEMP 36.6; O2SAT 98; O2SAT 99
[2021-06-19 20:56] LABS: Anion Gap 6 (5-15); BUN 9 mg/dL (7-18); BUN/Creat Ratio 7.9 RATIO (10-20); Calcium,Total 9.6 mg/dL (8.5-10.1); Chloride 99 mmol/L (98-107); Creatinine, Serum 1.14 mg/dL (0.55-1.02); EST Glomerular Filtration Rate 54 mL/min (>60); Est Glom Filt Rate - Afr Amer 65 mL/min (>60); Estimated Creatinine Clearance 51.55 ml/min; Glucose 106 mg/dL (74-106); Potassium 4.5 mmol/L (3.5-5.1); Sodium Level 135 mmol/L (136-145); Troponin-I HS 8 pg/mL (3.0-54.0)
[2021-06-19 20:59] LABS: D-Dimer Quantitative (DVT/PE) 0.32 FEU/ug/m (0.27-0.49)
[2021-06-19 21:06] LABS: Bacteria 0 SEEN /hpf (None Seen); Mucous, Urine 0 SEEN /hpf (<or=2+); Red Blood Cells-Urine 0 SEEN /hpf (0-5); White Blood Cells 0 SEEN /hpf (0-5)
[2021-06-19 21:27] LABS: Color, Urine Yellow (Yellow); Glucose, Dipstick Normal (Normal); Ketone-Dipstick Negative (Negative); Leukocyte Esterase-Dipstick Negative /ul (Negative); Nitrite-Dipstick Negative (Negative); Occult Blood-Urine Negative /ul (Negative); Protein-Dipstick Negative (Negative); Specific Gravity, Urine 1.015 (1.002-1.030); Urine Bilirubin Dipstick Negative (Negative); Urine Clarity Clear (Clear); Urine Urobilinogen Normal (Normal)
[2021-06-19 21:33] LABS: Squamous Epithelial Cells - UA 0-5 SEEN /hpf (5-10)
[2021-06-19] MEDS: Mag Hydrox/Al Hydrox/Simeth 30 ML UDC PO (21:55)
[2021-06-19 22:00] VITALS: BP 156/101; PULSE 86; RESP 20
== END 2021-06-19 22:01 | disposition home or self-care (01) ==
PROVIDERS: Emergency Provider Emergency Medicine; PCP Internal Medicine; Visit Provider Emergency Medicine
DX: R07.9 Chest pain, unspecified (principal); R06.02 Shortness of breath; I10 Essential (primary) hypertension; F17.210 Nicotine dependence, cigarettes, uncomplicated; F12.90 Cannabis use, unspecified, uncomplicated; M54.9 Dorsalgia, unspecified; G89.29 Other chronic pain
CPT/HCPCS: 71045; 80048; 81001; 84484; 85025; 85379; 87426; 93005; 96360; 96361; 99285; J7030; A4216

== ENCOUNTER 2022-01-02 11:00 | Outpatient (RCR) | payer MEDICAID, SELFPAY ==
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
--- NOTE | 2021-11-27 14:02 | HP.PTREVAL ---
Dr. Shahzad Reynolds MD, It has been my pleasure to treat BALJIT WYNN over the last 4 visits for DORSALGIA AND CHRONIC PAIN. Please see the progress note below for an update on the physical therapy plan of care! Subjective: Pt reports she feels no better or no worse since beginning PT Objective/Function: LBP and LE sx's have remained unchanged. Pt reports she is now able to take showers, get dressed, and perform most IADL's without being in tears. Pt is able to perform more activity at this time, but pain is unchanged Plan Plan: Cont with aquatic therapy consisting of core stab ex's and postural education Balance/Gait/Functional tests - Balance/Special Test Scores Oswestry Low Back Score: 25 TUG Test Time Seconds: 7.79 Tug Test: <10 sec.=free mobile 30 Second Chair Rise Test Seconds: 12 Goals Goal 1:: DECREASE C/O BACK AND LE SX'S. Goal Time Frame: 4-6 Weeks Goal Progress: Not Progressing Goal 2:: IMPROVE PERSONAL CARE, LIFTING, WALKING, SITTING, STANDING, SLEEP, SOCIAL LIFE, TRAVEL AND HOMEMAKING FUNCTION. Goal Time Frame: 4-6 Weeks Goal Progress: Progressing Goal 3:: INSTRUCT IN PROPHYLAXIS Goal Time Frame: 4-6 Weeks Goal Progress: Progressing Anticipated Interventions Patient/Client Instruction: Educate patient on: Condition, Plan of Care, Risk Factors For the Purpose of:: To improve self management Therapeutic Exercise to Include: Strength training, Body mechanics, Postural training, Flexibilty training, Gait and locomotor training, Neuromotor development, In an aquatic setting, Dynamic Lumbar Stabilization For the Purpose of:: To decrease pain, To increase ROM, To improve muscle performance and motor function, To increase tolerance to activity/condition/position, To improve ability of physical actions for home/community/work/leisure, To improve gait and locomotor functions Please do not hesitate to contact me at [phone] by phone or if you have questions or concerns regarding this new plan of care! Sincerely, Jagdish Arredondo, PT, ATC
== END 2022-01-02 19:00 | disposition home or self-care (01) ==
LOC: PT 11:00
PROVIDERS: PCP Internal Medicine; Referring Provider Internal Medicine; Visit Provider Internal Medicine
DX: M54.9 Dorsalgia, unspecified (principal); G89.29 Other chronic pain
CPT/HCPCS: 97113; 97162; 97164

== ENCOUNTER → 2022-02-11 | Outpatient (CLI) | payer MEDICAID, SELFPAY ==
[2022-02-11 15:19] LABS: Absolute Lymphocyte Count 4.28 X10^3/uL (0.83-4.51); Absolute Neutrophil Count 2.9 X10^3/uL (2.0-7.7); Eosinophil# 0.27 X10^3/uL; Eosinophils% 3.3 % (0-5); Hematocrit 39.7 % (37-47); Hemoglobin 12.5 g/dL (12.0-15.0); Lymphocyte # 4.28 X10^3/ul (0.83-4.51); Lymphocyte % 52.5 % (19-41); Mean Corp Hgb Conc 31.5 g/dL (32-36); Mean Corpuscular Hgb 27.6 pg (27.0-32.0); Mean Corpuscular Volume 87.6 fL (81-99); Mean Platelet Vol. 10.5 fl (6.2-12.0); Monocyte# 0.62 X10^3/uL; Monocyte% 7.6 % (0-10); Neutrophil # 2.88 X10^3/uL (2.7-7.7); Neutrophil % 35.4 % (47-70); Platelet Count 324 K/mm3 (150-450); RBC Distribution Width CV 12.3 % (11.6-14.6); RBC Distribution Width SD 39.5 fl (35.1-43.9); Red Blood Count 4.53 M/mm3 (4.2-5.4); White Blood Count 8.2 K/mm3 (4.4-11.0)
[2022-02-11 15:20] LABS: Basophil# 0.08 X10^3/uL; NRBC Flagged by Analyzer 0 % (0-5)
[2022-02-11 15:45] LABS: Vitamin B12 470 pg/mL (211-911); Vitamin D,25 Hydroxy 14.8 ng/mL
[2022-02-11 16:17] LABS: ALB/GLOB Ratio 0.8 RATIO (0.9-2.4); AST(SGOT) 14 U/L (15-37); Alanine Aminotransfer ALT/SGPT 25 U/L (13-56); Albumin, Serum 3.3 g/dL (3.2-5.0); Alkaline Phosphatase 100 U/L (45-117); Anion Gap 8 (5-15); BUN 12 mg/dL (7-18); BUN/Creat Ratio 12.4 RATIO (10-20); Calcium,Total 8.8 mg/dL (8.5-10.1); Chloride 103 mmol/L (98-107); Cholesterol 190 mg/dL (200); Creatinine, Serum 0.97 mg/dL (0.55-1.02); EST Glomerular Filtration Rate 65 mL/min (>60); Est Glom Filt Rate - Afr Amer 79 mL/min (>60); Globulin 4.3 g/dL (2.2-4.2); Glucose 117 mg/dL (74-106); High Density Lipoprotein 61 mg/dL; Potassium 3.7 mmol/L (3.5-5.1); Protein, Total 7.6 g/dL (6.4-8.2); Sodium Level 138 mmol/L (136-145); Thyroid Stim Hormone (TSH) 5.48 uIU/mL (0.358-3.74); Triglycerides 79 mg/dL; Very Low Density Lipoprotein 16 mg/dL (5-40)
== END | disposition home or self-care (01) ==
LOC: BIMLAB 14:04
PROVIDERS: PCP Internal Medicine; Referring Provider Nurse Practitioner Family; Visit Provider Nurse Practitioner Family
DX: M54.9 Dorsalgia, unspecified (principal); G89.29 Other chronic pain; E03.9 Hypothyroidism, unspecified; E56.9 Vitamin deficiency, unspecified
CPT/HCPCS: 36415; 80053; 80061; 82306; 82607; 84443; 85025

== ENCOUNTER → 2022-03-18 | Outpatient (CLI) | payer MEDICAID, SELFPAY | END | disposition home or self-care (01) | LOC: SL 09:49 | PROVIDERS: PCP Internal Medicine; Referring Provider Nurse Practitioner Family; Visit Provider Nurse Practitioner Family | DX: Z46.89 Encounter for fitting and adjustment of other specified devices (principal) ==

== ENCOUNTER → 2022-07-29 | Outpatient (CLI) | payer MEDICAID, SELFPAY ==
--- NOTE | 2022-07-29 16:29 | MRI_ITS ---
STUDY: MRI LEFT KNEE REASON FOR EXAM: Female, 52 years old. Pain. TECHNIQUE: Standardized fat and water weighted pulse sequences were obtained in all 3 orthogonal planes. COMPARISON: X-ray June 26, 2022. FINDINGS: There is medial meniscus tear of the posterior horn, series 4 images through . There is diffuse, less than 50% thickness articular cartilage loss of the medial femorotibial compartment. There is mild osteoarthritic spur formation of the medial knee compartment. There is marrow edema of the posterior medial femoral condyle . Normal medial collateral ligamentous complex (MCL). Normal distal semimembranosus, gracilis and semitendinosus tendons. 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 Normal hyaline cartilage of the lateral femorotibial compartment. Normal lateral femoral condyle and tibial plateau. Normal proximal tibiofibular articulation. Normal lateral collateral (fibular) ligament. Normal popliteus tendon. Normal biceps femoris tendon. Normal anterior cruciate ligament (ACL). Normal posterior cruciate ligament (PCL). There is arthrosis of the patellofemoral articulation. There is diffuse, less than 50% thickness articular cartilage loss of the patellofemoral compartment. Normal medial and lateral patellar retinaculum. Normal quadriceps tendon. Normal patellar tendon. Normal Hoffa''s fat pad. There is a moderate volume joint effusion. The soft tissues are unremarkable. The otherwise visualized osseous structures are unremarkable. MRI/Lower Ext Joint Only (Routine) IMPRESSION: Medial meniscus tear. Discoid lateral meniscus. Degenerative change. Stress injury/fracture of the medial femoral condyle. Joint effusion. Electronically Signed: Patrick Ledezma MD at 19:51 EDT ,
== END | disposition home or self-care (01) ==
LOC: MRI 16:29
PROVIDERS: PCP Internal Medicine; Referring Provider Physician Assistant; Visit Provider Physician Assistant
DX: M25.562 Pain in left knee (principal); M23.92 Unspecified internal derangement of left knee
CPT/HCPCS: 73721

== ENCOUNTER → 2022-09-10 | Outpatient (CLI) | payer MEDICAID, SELFPAY ==
[2022-09-10 15:20] LABS: Hematocrit 41.8 % (37-47); Hemoglobin 13.6 g/dL (12.0-15.0); Mean Corp Hgb Conc 32.5 g/dL (32-36); Platelet Count 360 K/mm3 (150-450); RBC Distribution Width CV 11.9 % (11.6-14.6); RBC Distribution Width SD 37.6 fl (35.1-43.9); Red Blood Count 4.86 M/mm3 (4.2-5.4); White Blood Count 6.9 K/mm3 (4.4-11.0)
[2022-09-10 16:01] LABS: Vitamin D,25 Hydroxy 45.2 ng/mL
[2022-09-10 16:05] LABS: Hemoglobin A1c 6.2 % (3.8-5.6)
[2022-09-10 16:12] LABS: ALB/GLOB Ratio 0.8 RATIO (0.9-2.4); AST(SGOT) 15 U/L (15-37); Alanine Aminotransfer ALT/SGPT 19 U/L (13-56); Albumin, Serum 3.6 g/dL (3.2-5.0); Alkaline Phosphatase 108 U/L (45-117); Anion Gap 4 (5-15); BUN 8 mg/dL (7-18); BUN/Creat Ratio 9.7 RATIO (10-20); Chloride 100 mmol/L (98-107); Cholesterol 250 mg/dL (200); Creatinine, Serum 0.82 mg/dL (0.55-1.02); EST Glomerular Filtration Rate 78 mL/min (>60); Est Glom Filt Rate - Afr Amer 94 mL/min (>60); Globulin 4.6 g/dL (2.2-4.2); Glucose 112 mg/dL (74-106); High Density Lipoprotein 90 mg/dL; Potassium 3.4 mmol/L (3.5-5.1); Protein, Total 8.2 g/dL (6.4-8.2); Sodium Level 134 mmol/L (136-145); Thyroid Stim Hormone (TSH) 2.76 uIU/mL (0.358-3.74); Total Bilirubin < 0.10 mg/dL (0.20-1.00); Triglycerides 117 mg/dL; Very Low Density Lipoprotein 23 mg/dL (5-40)
== END | disposition home or self-care (01) ==
LOC: BIMLAB 14:09
PROVIDERS: PCP Internal Medicine; Visit Provider Nurse Practitioner Family
DX: E55.9 Vitamin D deficiency, unspecified (principal); F41.9 Anxiety disorder, unspecified; F32.9 Major depressive disorder, single episode, unspecified; I10 Essential (primary) hypertension; R73.03 Prediabetes
CPT/HCPCS: 36415; 80053; 80061; 82306; 83036; 84443; 85027

== ENCOUNTER → 2022-10-16 | Outpatient (CLI) | payer MEDICAID, SELFPAY ==
[2022-10-16 12:32] LABS: Absolute Lymphocyte Count 3.44 X10^3/uL (0.83-4.51); Absolute Neutrophil Count 2.3 X10^3/uL (2.0-7.7); Basophil# 0.09 X10^3/uL; Basophil% 1.3 % (0-1); Eosinophil# 0.51 X10^3/uL; Eosinophils% 7.5 % (0-5); Hematocrit 38.8 % (37-47); Hemoglobin 12.3 g/dL (12.0-15.0); Lymphocyte # 3.44 X10^3/ul (0.83-4.51); Lymphocyte % 50.3 % (19-41); Mean Corp Hgb Conc 31.7 g/dL (32-36); Mean Corpuscular Hgb 27.7 pg (27.0-32.0); Mean Corpuscular Volume 87.4 fL (81-99); Mean Platelet Vol. 10.5 fl (6.2-12.0); Monocyte# 0.47 X10^3/uL; Monocyte% 6.9 % (0-10); NRBC Flagged by Analyzer 0 % (0-5); Neutrophil # 2.32 X10^3/uL (2.7-7.7); Neutrophil % 33.9 % (47-70); Platelet Count 293 K/mm3 (150-450); RBC Distribution Width SD 38.6 fl (35.1-43.9); Red Blood Count 4.44 M/mm3 (4.2-5.4); White Blood Count 6.8 K/mm3 (4.4-11.0)
[2022-10-16 12:57] LABS: ALB/GLOB Ratio 0.8 RATIO (0.9-2.4); AST(SGOT) 16 U/L (15-37); Alanine Aminotransfer ALT/SGPT 16 U/L (13-56); Albumin, Serum 3.3 g/dL (3.2-5.0); Alkaline Phosphatase 107 U/L (45-117); Anion Gap 7 (5-15); BUN 9 mg/dL (7-18); BUN/Creat Ratio 11.5 RATIO (10-20); Calcium,Total 8.7 mg/dL (8.5-10.1); Chloride 104 mmol/L (98-107); Creatinine, Serum 0.78 mg/dL (0.55-1.02); EST Glomerular Filtration Rate 83 mL/min (>60); Est Glom Filt Rate - Afr Amer 100 mL/min (>60); Globulin 4.2 g/dL (2.2-4.2); Glucose 95 mg/dL (74-106); Potassium 3.7 mmol/L (3.5-5.1); Protein, Total 7.5 g/dL (6.4-8.2); Sodium Level 137 mmol/L (136-145); Thyroid Stim Hormone (TSH) 1.45 uIU/mL (0.358-3.74)
== END | disposition home or self-care (01) ==
LOC: BIMLAB 11:09
PROVIDERS: PCP Internal Medicine; Visit Provider Nurse Practitioner Family
DX: Z01.818 Encounter for other preprocedural examination (principal); S83.242A Other tear of medial meniscus, current injury, left knee, initial encounter
CPT/HCPCS: 36415; 80053; 84443; 85025

== ENCOUNTER 2022-10-22 08:42 | Day surgery (SDC) | payer MEDICAID, SELFPAY ==
[2022-10-22] VITALS (10 sets, daily range): BP systolic 119–141; BP diastolic 79–95; PULSE 65–85; RESP 12–18; TEMP 36.2–37.1; O2SAT 85–99; BMI 42.2
[2022-10-22] MEDS: Lactated Ringers 1,000 ML 15 ML IV (09:20)
--- NOTE | 2022-10-22 09:24 | HP.PCM_ITS ---
HPI - General HPI Narrative BALJIT WYNN, is a 52 F who presents for left knee arthroscopy, partial medial meniscectomy possible repair and saucerization lateral meniscus. No changes to physical exam. Patient had preoperative clearance. Patient wishes to proceed. Left knee marked. Recovery discussed as well as possible repair slowing down the recovery postoperative, and narcotic counseling. She understands no further questions or concerns. MR#: [id number] Acct: [id number] Name:? BALJIT WYNN Rep #: [id number] : 1970 ? ? Provider: Dr. Zoran Bosch MD Age/Sex:? 52/F ? ? Location: [facility] [place] Status: Signed Intake Intake Visit Reasons:?LEFT KNEE Chief Complaint: left knee Accompanied by: Is patient in pain?: Yes Pain scale (1-10): 7 Allergies codeine Allergy (Verified 09/10/22 13:39) Itchinglisinopril Allergy (Verified 09/10/22 13:39) Angioedema Medications acetaminophen 500 mg tablet (Tylenol Extra Strength) 500 - 1,000 mg PO Q6H PRN pain #60 tabs 12/18/21 [Rx Confirmed 09/11/22] WOMENTS FOCUS MULTIVITAMIN PO 02/11/22 [History Confirmed 09/11/22] apple cider vinegar 600 mg capsule mg PO 02/11/22 [History Confirmed 09/11/22] calcium polycarbophil 625 mg tablet (FiberCon) 1,250 mg PO DAILY 02/11/22 [History Confirmed 09/11/22] amlodipine 10 mg tablet 10 mg PO DAILY #60 tabs 07/02/22 [Rx Confirmed 09/11/22] duloxetine 30 mg capsule,delayed release (Cymbalta) 30 mg PO BID #60 caps 07/02/22 [Rx Confirmed 09/11/22] hydrochlorothiazide 12.5 mg tablet 12.5 mg PO QAM #90 tabs 07/02/22 [Rx Confirmed 09/11/22] levothyroxine 112 mcg tablet See Rx Instructions .Route .COMPLEX #60 tabs 07/02/22 [Rx Confirmed 09/11/22] conjugated estrogens 0.9 mg tablet 0.9 mg PO DAILY #30 tabs 09/10/22 [Rx Confirmed 09/11/22] ergocalciferol (vitamin D2) 1,250 mcg (50,000 unit) capsule 50,000 unit PO QWEEK #12 caps 09/10/22 [Rx Confirmed 09/11/22] etodolac 300 mg capsule 300 mg PO TID #30 caps 09/10/22 [Rx Confirmed 09/11/22] PFSH Medical History? Abnormal EKG ADHD (attention deficit hyperactivity disorder) Adjustment disorder Anxiety Arthritis Chronic back pain Depression Excessive somnolence disorder Exposure to COVID-19 virus Gastric reflux Generalized anxiety disorder Hypersomnolence Hypertension Hypothyroid Hypothyroidism (acquired) Labyrinthitis Loose, teeth Marijuana use Prediabetes Smoker Substance abuse Suspected COVID-19 virus infection Upper respiratory infection Urticaria Vertigo Vitamin D deficiency Wears glasses Wears partial dentures Surgical History? History of appendectomy History of bilateral carpal tunnel release History of hysterectomy History of tubal ligation Family History? Sister?? ,? of [place] CAD (coronary artery disease) Myocardial infarction Sudden cardiac deathFather?? Pancreatic cancer Social History? Smoking Status:? Current every day smoker tobacco type: cigarettes Tobacco: How many years used:? 30 alcohol intake:? current alcohol intake frequency: holidays/special occasions only substance use type:? marijuana what type of physical activity do you participate in:? none HPI LEFT KNEE Details: Parts of this documentation were recorded by a scribe, this documentation accurately reflects the service provided and the decisions made by me, Dr. Zoran Bosch MD 09/11/22 [id number]. BALJIT WYNN is a 52 year old F here today for left knee pain with x-rays and MRI complete. Since May, mostly pain on the medial side, and in the thigh. Positive for catching or locking and feels like it hyper extends, and gives out. [place] has included a brace, a steroid and celebrex and not helping. Icing it. Topical rub and patches. Not working - hobbies likes to walk, playing with the grand kids, dancing. Does not want to go ahead with cortisone injections has been trying a brace.? This seems to be getting worse with time. moderate to severe pain, trying NSAIDs. Here with Bernabe her . Ortho Exam General General: Yes no acute distress Neurologic: Yes alert and Yes oriented x3 Psychologic: Yes reasonable and appropriate Right Knee Patella Translation: 1 Left Knee Skin/Wound: Yes CDI, No ecchymosis, No erythema and No swelling Examination: Yes med jt line tenderness, Yes Lat jt line tenderness, No TTP inf pole patella, Yes Crepitus, Yes Pain with flexion, Yes Skip's Test, No TTP Patellar tendon, No TTP Tibial tubercle, No TTP Pes Anserine and No Illiotibial band tenderness Stability: NML: Anterior Drawer, NML: Leanne, NML: Posterior Drawer, NML: Va lgus 0, NML: Valgus 30, NML: Varus 0 and NML: Varus 30 Patella Translation: 1 Patellar Tilt Normal: Yes Patella Grind: Yes KNEE: Antalgic gait.? Normal alignment.? Increased BMI.? Normal sensation motor function to the foot foot is warm and well-perfused normal sensation throughout the foot.? Range of motion is 0 to 95 degrees stiff in flexion.? Able to hold leg out straight. Supplemental Info [facility] [address] [place] [address] Knee 4 or More Views MR#:? [id number] Acct: [id number] Name:? BALJIT WYNN Rep #: [id number] :?? 1970 F 52 ? From:? ? Josefina Calvo MD PCP: Dr. Shahzad Reynolds MD ? Status: DEP AMB Study: Knee 4 or More Views ? Date of Exam: 06/26/22 Exam# [id number] ? Ordering Dr:? Danial Cox INDICATION: pain EXAMINATION/TECHNIQUE: X-RAY - LEFT XR Knee Complete 4 Views or More 4 VIEWS COMPARISON: None. FINDINGS: SOFT TISSUES: No soft tissue swelling or gas.? No radiopaque foreign body. BONES/JOINTS: No acute fracture or subluxation.. Normal alignment.? There are mild degenerative changes of the medial compartment and the patellofemoral articulation. There is a small joint effusion No sclerotic or destructive changes observed. RAD/Knee 4 or More Views IMPRESSION: Degenerative changes. ? Small joint effusion. ? Electronically Signed: Josefina Calvo MD at 8:19 EST , [facility] Imaging Services [address] [place] [address] Lower Ext Joint Only (Routine) MR#:? [id number] Acct: [id number] Name:? BALJIT WYNN Rep #: [id number] :?? 1970 F 52 ? From:? ? Patrick Ledezma MD PCP: Dr. Shahzad Reynolds MD ? Status: REG CLI Study: Lower Ext Joint Only (Routine) ? Date of Exam: 07/29/22 Exam# [id number] ? Ordering Dr:? Danial Cox STUDY:? MRI LEFT KNEE REASON FOR EXAM:? Female, 52 years old.? Pain. TECHNIQUE:? Standardized fat and water weighted pulse sequences were obtained in all 3 orthogonal planes. COMPARISON:? X-ray June 26, 2022. FINDINGS: There is medial meniscus tear of the posterior horn, series 4 images through .? There is diffuse, less than 50% thickness articular cartilage loss of the medial femorotibial compartment.? There is mild osteoarthritic spur formation of the medial knee compartment. There is marrow edema of the posterior medial femoral condyle . Normal medial collateral ligamentous complex (MCL).? Normal distal semimembranosus, gracilis and semitendinosus tendons. There is discoid lateral meniscus.? Normal hyaline cartilage of the lateral femorotibial compartment.? Normal lateral femoral condyle and tibial plateau. Normal proximal tibiofibular articulation.? Normal lateral collateral (fibular) ligament.? Normal popliteus tendon.? Normal biceps femoris tendon. Normal anterior cruciate ligament (ACL).? Normal posterior cruciate ligament (PCL). There is arthrosis of the patellofemoral articulation.? There is diffuse, less than 50% thickness? articular cartilage loss of the patellofemoral compartment.? Normal medial and lateral patellar retinaculum. Normal quadriceps tendon.? Normal patellar tendon.? Normal Hoffa''s fat pad. There is a moderate volume joint effusion. The soft tissues are unremarkable.? The otherwise visualized osseous structures are unremarkable. MRI/Lower Ext Joint Only (Routine) IMPRESSION: Medial meniscus tear. Discoid lateral meniscus. ? Degenerative change. ? Stress injury/fracture of the medial femoral condyle. ? Joint effusion. ? Electronically Signed: Patrick Ledezma MD at 19:51 EDT Reading Location ID and State: [address] [place] [address] , Service support? , Coding Level of Care Code Off vis,new,level 4 Diagnoses Tear of medial meniscus of left knee? S83.242A Internal derangement of left knee? M23.92 Left knee pain? 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 We discussed all the different treatment options available rest ice anti-inflammatories activity modifications physical therapy bracing intra- articular cortisone injection or viscosupplementation as well as considering knee arthroscopy.? Patient is interested in surgical solution of this problem th is to be left knee arthroscopy, partial medial meniscectomy possible repair (this is near the root which would slow the rehab PWB 6 weeks) as well as saucerization lateral meniscus.? Patient at increased risk encouraged to quit or cut back on her smoking 8 cigarettes a day also has hypothyroidism and elevated BMI and other risks we will get a preoperative clearance from the family doctor.? Patient understands no further questions signed the consent for surgery as well as possible need for blood products.? Try to get them a cane we do not have these in the office offered her crutches but declined those. Pros and cons risks and benefits were discussed with the patient including but not limited to infection, pain, stiffness, bleeding, damage to surrounding structures, neurovascular injury, recurrence or retear, failure or wear of hardware or fixation, instability, fracture, deep vein thrombosis and pulmonary embolism, anesthetic risks, , patient dissatisfaction, need for further s urgery and other risks.? Patient understood and wished to proceed with surgery, and signed the informed consent documentation. [facility] Medical History (Updated 10/21/22 @ 10:45 by Azalea De La O) Abnormal EKG ADHD (attention deficit hyperactivity disorder) Adjustment disorder Alcohol use Anxiety Arthritis Back pain Cardiology follow-up encounter Chronic back pain Depression Excessive somnolence disorder Exposure to COVID-19 virus Gastric reflux Generalized anxiety disorder History of echocardiogram History of edema History of pain when walking History of steroid therapy Hypersomnolence Hypertension Hypothyroid Hypothyroidism (acquired) Labyrinthitis Loose, teeth Marijuana use Normal stress echocardiogram Post-menopausal Pre-op evaluation Prediabetes Smoker Substance abuse Suspected COVID-19 virus infection Thyroid disease Upper respiratory infection Urticaria Vertigo Vitamin D deficiency Wears glasses Wears partial dentures Home Medications acetaminophen 500 mg tablet (Tylenol Extra Strength) 500 - 1,000 mg PO Q6H PRN pain #60 tabs 12/18/21 [Rx Last Taken Unknown] duloxetine 30 mg capsule,delayed release (Cymbalta) 30 mg PO BID #60 caps 07/02/22 [Rx Last Taken Unknown] hydrochlorothiazide 12.5 mg tablet 12.5 mg PO QAM #90 tabs 07/02/22 [Rx Last Taken Unknown] levothyroxine 112 mcg tablet See Rx Instructions .Route .COMPLEX #60 tabs 07/02/22 [Rx Last Taken Unknown] conjugated estrogens 0.9 mg tablet 0.9 mg PO DAILY #30 tabs 09/10/22 [Rx Last Taken Unknown] ergocalciferol (vitamin D2) 1,250 mcg (50,000 unit) capsule 50,000 unit PO QWEEK #12 caps 09/10/22 [Rx Last Taken Unknown] lidocaine 4 % topical patch (Aspercreme (lidocaine)) 1 patch topical DAILY PRN pain #60 ea 09/30/22 [Rx Last Taken Unknown] amlodipine 10 mg tablet See Rx Instructions .Route .COMPLEX #60 tabs 10/02/22 [Rx Last Taken Unknown] SEA ELIZONDO GEL 1 tsp PO DAILY 10/16/22 [History Last Taken Unknown] ashwagandha extract 120 mg capsule 120 mg PO DAILY 10/16/22 [History Last Taken Unknown] inulin-sorbitol 2 gram chewable tablet 2 tab PO DAILY 10/21/22 [History Last Taken Unknown] Allergy/AdvReac Type Severity Reaction Status Date / Time codeine Allergy Itching Verified 10/21/22 10:31 lisinopril Allergy Angioedema Verified 10/21/22 10:31 Family History Sister , of [place] CAD (coronary artery disease) Myocardial infarction Sudden cardiac Father Pancreatic cancer Surgical History (Updated 10/21/22 @ 10:45 by Azalea De La O) History of appendectomy History of bilateral carpal tunnel release History of hysterectomy History of tubal ligation Hx of tooth extraction Hx of wisdom tooth extraction Social History Smoking Status: Current every day smoker tobacco type: cigarettes Tobacco: How many years used: 30 alcohol intake: current alcohol intake frequency: holidays/special occasions only substance use type: marijuana what type of physical activity do you participate in: none
[2022-10-22] MEDS: Cefazolin 2 GM in 0.9% Normal Saline 100 ML IV (09:43)
[2022-10-22] MEDS: Epinephrine (1 mg/ml) 1 MG/ML VIAL (10:07)
[2022-10-22] MEDS: Bupivacaine 0.25% 30 ML Vial (11:17)
--- NOTE | 2022-10-22 11:26 | OP.PCM_ITS ---
Problems Associated Problem List Diagnoses (1) Tear of medial meniscus of left knee: Report of Operation Date of Procedure: 10/22/22 Pre-Operative Diagnosis: Left knee medial meniscus tear and lateral meniscus discoid meniscus Post-Operative Diagnosis: Left knee medial meniscus root tear and lateral meniscus tear no discoid meniscus Surgery/Procedure Performed:: Left knee arthroscopy, medial meniscus root repair and debridement and partial lateral meniscectomy Surgeon: Zoran Bosch Type of Anesthesia: General and Local Anesthesiologist: Karthik Leon Estimated Blood Loss (mL): 20 Description of Procedure: Brought the patient to the operating room theater. Placed supine on the table. General anesthesia induced. 2 g IV Ancef administered prior to the start of the procedure. SCD on nonoperative leg. All bony prominences padded. Lower extremity prepped and draped in the usual sterile fashion with chlorhexidine- based prep solution allowing over 3 minutes drying time prior to draping. Stress positioner the left side. Tourniquet applied to the thigh appropriately padded. Preoperative timeout performed to confirm the site patient and the surgery. Elevated the limb inflated the tourniquet to 250 mmHg. Began by making standard anterolateral and anteromedial arthroscopy portals. Did a diagnostic arthroscopy. Also made accessory AM portal just inferior to the first, right superior to the medial meniscus. Cartilage on the undersurface of patella grade 1-2 changes of the trochlea grade 2-3 changes. Gutters entered no loose bodies. Moderate amount of hypertrophic tissue anterior to the ACL retrograde to the patellar tendon debrided. There is also some extraneous tissue looked like from a past lateral meniscus tear anteriorly that was flipping in and out of the lateral compartment, I removed this. The lateral meniscus appeared otherwise normal no obvious discoid lateral meniscus encountered. Slight grade 1 changes on the lateral compartment tibial side normal on the femur. ACL appeared normal and was stable to probing. Medial compartment entered. There was a grade 2-3 changes on both the femur and the tibial side. There is a posterior medial meniscus root tear. Unstable. Therefore elected to fix this to restore the hoop stresses and protect the car tilage. I drilled a tunnel from anterior medial proximal tibia to the area of the meniscus root repair at the posterior horn medial meniscus. I made a small incision at the anterior medial proximal aspect of the tibia. I then passed a fiber stick suture and then grasped this out the anteromedial portal at which I had placed a passport cannula. Next I used the Arthrex knee scorpion to pass 2 luggage tag type stitches at the posterior horn free end medial meniscus. These were 2-0 FiberWire sutures. I then shuttled these using the passing suture into the tunnel out the anterior medial aspect of the proximal tibia. I tied these over a button, with appropriate tension was achieved stable repair and then I also used the included Arthrex drill tap and PEEK anchor as a backup fixation just distal to the button. Final pictures taken and saved throughout the case onto the system root repair stable this more appropriately restored the hoop stress and meniscus normal appearance at the medial tibial plateau rather than looking slightly extruded. Incision is closed with 3-0 Monocryl suture. 15 cc of quarter percent bupivacaine around the incision sites followed by Steri-Strips Adaptic 4 x 4 gauze abdominal pad dressings and 6 inch Patrick bandage sterile. Loosely wrapped. Then placed the patient in a hinged knee brace in full extension. Patient woken up from the general anesthetic transferred off the operating table in the postanesthetic care unit in stable condition. All sponge needle instrument counts were correct no complications. Plan for patient nonweightbearing and follow-up in the office in 2 days time. Complications none Admit VTE Documentation VTE Present on Admission: No VTE Pharm Prophylaxis ordered?: No Reason prophylaxis not ordered:: Treatment Not Indicated Procedures Musculoskeletal [id number]: Other Procedure See Report
--- NOTE | 2022-10-22 11:36 | DCINST_ITS ---
Discharge Instructions Diet Discharge Diet: No restrictions Activity Discharge Activity: Use Crutches Ice area for (Minutes): 10 Weight Bearing Status: No weight bearing Keep extremity elevated above heart level: Operative Extremity Dressing / Incision Call your doctor if your incision/area has: Continuous Slow Oozing, Sudden Increased Bleeding, Increased Pain/ Swelling, Increased Redness, Foul Smelling Discharge and Swelling at the incision site Remove Dressing in: leave in place till F/U Follow Up Care Please Follow Up With: Zoran Bosch MD When: 2 days Test Results: Test results from this visit will be discussed in further detail at your follow- up appointment, if applicable. Discharge Plan Admission Attending Provider: Zoran Bosch Primary Care Provider: Shahzad Reynolds Instructions Patient Instructions: After Knee Arthroscopy Discharge Orders/Prescriptions Prescriptions: New oxycodone-acetaminophen [Percocet] 5-325 mg tablet 1 tab PO Q4H MDD 6 PRN (Reason: pain) 5 Days Qty: 20 0RF No Action conjugated estrogens 0.9 mg tablet 0.9 mg PO DAILY Qty: 30 1RF ergocalciferol (vitamin D2) 1,250 mcg (50,000 unit) capsule 50,000 unit PO QWEEK Qty: 12 2RF SEA ELIZONDO GEL 1 tsp PO DAILY ashwagandha extract 120 mg capsule 120 mg PO DAILY inulin-sorbitol 2 gram Tablet,Chewable 2 tab PO DAILY acetaminophen [Tylenol Extra Strength] 500 mg tablet 500 - 1,000 mg PO Q6H MDD 4,000mg PRN (Reason: pain) Qty: 60 0RF hydrochlorothiazide 12.5 mg tablet 12.5 mg PO QAM Qty: 90 0RF levothyroxine 112 mcg tablet See Rx Instructions .ROUTE .COMPLEX Qty: 60 0RF Dose Instruction: TAKE 1 TABLET BY MOUTH EVERY DAY Rx Instructions: TAKE 1 TABLET BY MOUTH EVERY DAY duloxetine [Cymbalta] 30 mg capsule,delayed release(DR/EC) 30 mg PO BID Qty: 60 2RF lidocaine [Aspercreme (lidocaine)] 4 % adhesive patch,medicated 1 patch topical DAILY PRN (Reason: pain) Qty: 60 0RF amlodipine 10 mg tablet See Rx Instructions .ROUTE .COMPLEX Qty: 60 0RF Dose Instruction: TAKE 1 TABLET BY MOUTH EVERY DAY Rx Instructions: TAKE 1 TABLET BY MOUTH EVERY DAY Referrals / Follow Up: Shahzad Reynolds MD [Primary Care Provider] - Zoran Bosch MD [Med Staff - Active Staff] - Disposition Disposition (needs filled in before D/C Order can be placed): Home, Self Care
[2022-10-22] MEDS: HYDROcodone Bitartrate/Apap 5/325 Tablet PO (13:20)
== END 2022-10-22 14:40 | disposition home or self-care (01) ==
LOC: SDC 08:43 → AC 08:44
PROVIDERS: PCP Internal Medicine; Referring Provider Orthopaedic Surgery Sports Medicine; Visit Provider Orthopaedic Surgery Sports Medicine
PROC: (CPT 29881; principal; 2022-10-22 09:55)
DX: S83.242A Other tear of medial meniscus, current injury, left knee, initial encounter (principal); S72.433A Displaced fracture of medial condyle of unspecified femur, initial encounter for closed fracture; I10 Essential (primary) hypertension; Q68.6 Discoid meniscus; F17.210 Nicotine dependence, cigarettes, uncomplicated; F41.1 Generalized anxiety disorder; S83.289A Other tear of lateral meniscus, current injury, unspecified knee, initial encounter; F12.90 Cannabis use, unspecified, uncomplicated; G89.29 Other chronic pain; F41.9 Anxiety disorder, unspecified; F32.9 Major depressive disorder, single episode, unspecified; Z86.16 Personal history of COVID-19; G47.10 Hypersomnia, unspecified; E03.9 Hypothyroidism, unspecified; F19.90 Other psychoactive substance use, unspecified, uncomplicated; G47.33 Obstructive sleep apnea (adult) (pediatric); M25.562 Pain in left knee; M23.92 Unspecified internal derangement of left knee
CPT/HCPCS: 29881; 29888; 01400; J7120; J2405

== ENCOUNTER 2022-10-31 15:09 | Emergency (ER) | payer MEDICAID, SELFPAY ==
[2022-10-31 15:09] VITALS: BP 124/64; PULSE 73; RESP 18; TEMP 36.2; O2SAT 99
[2022-10-31 15:29] VITALS: BMI 44.9
--- NOTE | 2022-10-31 15:34 | ED.VIS.LOWEX ---
HPI History of Present Illness Chief Complaint: Lower Extremity Injury Informant: patient Narrative Narrative: Patient presents with left leg DVT. Patient had knee scope about a week ago. She had a change in the type of pain she was feeling so outpatient ultrasound was done today that was positive for left posterior tibial vein and left soleus DVT. She does not have chest pain shortness of breath. She does not have any swelling. No history of prior DVT. She is on Premarin. I discussed the case directly with her orthopedic surgeon, Dr. Bosch. He is okay with her being anticoagulated. [facility] Medical History Abnormal EKG ADHD (attention deficit hyperactivity disorder) Adjustment disorder Alcohol use Anxiety Arthritis Back pain Cardiology follow-up encounter Chronic back pain Depression Excessive somnolence disorder Exposure to COVID-19 virus Gastric reflux Generalized anxiety disorder History of echocardiogram History of edema History of pain when walking History of steroid therapy Hypersomnolence Hypertension Hypothyroid Hypothyroidism (acquired) Labyrinthitis Loose, teeth Marijuana use Normal stress echocardiogram Post-menopausal Pre-op evaluation Prediabetes Smoker Substance abuse Suspected COVID-19 virus infection Thyroid disease Upper respiratory infection Urticaria Vertigo Vitamin D deficiency Wears glasses Wears partial dentures Home Medications acetaminophen 500 mg tablet (Tylenol Extra Strength) 500 - 1,000 mg PO Q6H PRN pain #60 tabs 12/18/21 [Rx Last Taken Unknown] duloxetine 30 mg capsule,delayed release (Cymbalta) 30 mg PO BID #60 caps 07/02/22 [Rx Last Taken Unknown] hydrochlorothiazide 12.5 mg tablet 12.5 mg PO QAM #90 tabs 07/02/22 [Rx Last Taken Unknown] levothyroxine 112 mcg tablet See Rx Instructions .Route .COMPLEX #60 tabs 07/02/22 [Rx Last Taken Unknown] conjugated estrogens 0.9 mg tablet 0.9 mg PO DAILY #30 tabs 09/10/22 [Rx Last Taken Unknown] ergocalciferol (vitamin D2) 1,250 mcg (50,000 unit) capsule 50,000 unit PO QWEEK #12 caps 09/10/22 [Rx Last Taken Unknown] lidocaine 4 % topical patch (Aspercreme (lidocaine)) 1 patch topical DAILY PRN pain #60 ea 09/30/22 [Rx Last Taken Unknown] amlodipine 10 mg tablet See Rx Instructions .Route .COMPLEX #60 tabs 10/02/22 [Rx Last Taken Unknown] SEA ELIZONDO GEL 1 tsp PO DAILY 10/16/22 [History Last Taken Unknown] ashwagandha extract 120 mg capsule 120 mg PO DAILY 10/16/22 [History Last Taken Unknown] inulin-sorbitol 2 gram chewable tablet 2 tab PO DAILY 10/21/22 [History Last Taken Unknown] oxycodone-acetaminophen 5 mg-325 mg tablet (Percocet) 1 tab PO Q4H PRN pain 5 days #20 tabs 10/22/22 [Rx Last Taken Unknown] oxycodone-acetaminophen 5 mg-325 mg tablet (Percocet) 1 tab PO Q4H PRN pain 5 days #14 tabs 10/30/22 [Rx Last Taken Unknown] apixaban 5 mg tablet (Eliquis) 5 mg PO BID #74 tabs 10/31/22 [Rx Last Taken Unknown] Allergy/AdvReac Type Severity Reaction Status Date / Time codeine Allergy Itching Verified 10/31/22 15:12 lisinopril Allergy Angioedema Verified 10/31/22 15:12 Family History Sister , of CT CAD (coronary artery disease) Myocardial infarction Sudden cardiac Father Pancreatic cancer Surgical History History of appendectomy History of bilateral carpal tunnel release History of hysterectomy History of tubal ligation Hx of tooth extraction Hx of wisdom tooth extraction Social History Smoking Status: Current every day smoker tobacco type: cigarettes Tobacco: How many years used: 30 alcohol intake: current alcohol intake frequency: holidays/special occasions only substance use type: marijuana what type of physical activity do you participate in: none ROS ROS ED ROS Narrative A complete review of systems was performed and is negative except as documented in the history of present illness. Some specific details below. Constitutional: No recent fevers or chills. No malaise EYE: No discharge, visual complaints, or pain. ENT: No difficulty swallowing. No reflux symptoms. CV: No chest pain palpitations lightheadedness presyncope or syncope. Respiratory: No dyspnea or cough. No hemoptysis. GI: No abdominal pain. No nausea vomiting diarrhea. No blood in stool. : No hematuria. Musculoskeletal: See history of present illness. Skin: No rash. Nondiaphoretic. Neuro: No weakness or numbness. Endocrine: No polyuria or polydipsia. EXAM Physical Exam Narrative Exam Narrative: Patient awake alert no acute distress laying comfortably in bed. HEENT shows no trauma. Neck shows no JVD Lungs are clear bilaterally and saturations are normal at 99% sat on room air showing no hypoxia. Heart is regular not tachycardic. Abdomen is mildly obese but benign. Extremities show's splint on the left leg. But there is no notable edema. She has mild tenderness in the posterior calf but is nonfocal. Pulses are normal and sensations are normal. Const Vital Signs: 10/31/22 15:09 Temperature 97.1 F L Temperature Source Temporal Pulse Rate 73 Respiratory Rate 18 Blood Pressure 124/64 H Blood Pressure Mean 84 Pulse Ox 99 Oxygen Delivery Method Room Air MDM MDM MDM Narrative Medical decision making narrative: I reviewed prior labs as an outpatient from earlier this month that showed normal renal function. I do not think we need to recheck this today. Patient will be started on Eliquis. We discussed some risks and reasons to return including the risks with head injury. We also discussed that I will write for the first months medication. But normally she will be on medicines for 3 to 6 months and needs to follow-up with her primary doctor for ongoing care. She may have other ultrasounds done to check resolution. We discussed returning with swelling chest pain shortness of breath or any other concerns Discharge Plan Triage Chief Complaint: Lower Extremity Injury ED Provider: Ben Saenz Dx/Rx/DC Orders Clinical Impression: Left leg DVT Instructions: ED Deep Vein Thrombosis (DVT) Prescriptions: New Eliquis 5 mg tablet 5 mg PO BID Qty: 74 0RF Rx Instructions: 10 mg twice a day for the first week. Then 5 mg twice a day. No Action conjugated estrogens 0.9 mg tablet 0.9 mg PO DAILY Qty: 30 1RF ergocalciferol (vitamin D2) 1,250 mcg (50,000 unit) capsule 50,000 unit PO QWEEK Qty: 12 2RF SEA ELIZONDO GEL 1 tsp PO DAILY ashwagandha extract 120 mg capsule 120 mg PO DAILY oxycodone-acetaminophen [Percocet] 5-325 mg tablet 1 tab PO Q4H MDD 6 PRN (Reason: pain) 5 Days Qty: 14 0RF inulin-sorbitol 2 gram Tablet,Chewable 2 tab PO DAILY oxycodone-acetaminophen [Percocet] 5-325 mg tablet 1 tab PO Q4H MDD 6 PRN (Reason: pain) 5 Days Qty: 20 0RF acetaminophen [Tylenol Extra Strength] 500 mg tablet 500 - 1,000 mg PO Q6H MDD 4,000mg PRN (Reason: pain) Qty: 60 0RF hydrochlorothiazide 12.5 mg tablet 12.5 mg PO QAM Qty: 90 0RF levothyroxine 112 mcg tablet See Rx Instructions .ROUTE .COMPLEX Qty: 60 0RF Dose Instruction: TAKE 1 TABLET BY MOUTH EVERY DAY Rx Instructions: TAKE 1 TABLET BY MOUTH EVERY DAY duloxetine [Cymbalta] 30 mg capsule,delayed release(DR/EC) 30 mg PO BID Qty: 60 2RF lidocaine [Aspercreme (lidocaine)] 4 % adhesive patch,medicated 1 patch topical DAILY PRN (Reason: pain) Qty: 60 0RF amlodipine 10 mg tablet See Rx Instructions .ROUTE .COMPLEX Qty: 60 0RF Dose Instruction: TAKE 1 TABLET BY MOUTH EVERY DAY Rx Instructions: TAKE 1 TABLET BY MOUTH EVERY DAY Primary Care Provider: Shahzad Reynolds Referrals: Shahzad Reynolds MD [Primary Care Provider] - As soon as possible Disposition Disposition: Home, Self Care
[2022-10-31] MEDS: APIXABAN 5 MG TABLET 10 MG PO (15:54)
== END 2022-10-31 16:00 | disposition home or self-care (01) ==
LOC: ED 15:47
PROVIDERS: Emergency Provider Emergency Medicine; PCP Internal Medicine; Visit Provider Emergency Medicine
DX: I82.442 Acute embolism and thrombosis of left tibial vein (principal); I82.462 Acute embolism and thrombosis of left calf muscular vein; I10 Essential (primary) hypertension; F17.210 Nicotine dependence, cigarettes, uncomplicated; Z90.49 Acquired absence of other specified parts of digestive tract; Z90.710 Acquired absence of both cervix and uterus; F41.9 Anxiety disorder, unspecified; F32.A Depression, unspecified; Z79.899 Other long term (current) drug therapy; E03.9 Hypothyroidism, unspecified; Z79.818 Long term (current) use of other agents affecting estrogen receptors and estrogen levels
CPT/HCPCS: 93971; 99283

== ENCOUNTER → 2022-10-31 | Outpatient (CLI) | payer MEDICAID, SELFPAY ==
--- NOTE | 2022-10-31 14:35 | VDLE_ITS ---
Reason For Study: Pain Left Leg RIGHT LEFT CFV is compressible, spontaneous, phasic, GSV is normal. competent and demonstrates normal CFV is compressible, spontaneous, phasic, augmentation. competent, and demonstrates normal Procedure augmentation. This is a venous duplex using B-mode, color FV is compressible, spontaneous, phasic, flow and spectral Doppler. competent and demonstrates normal Exam performed in department. augmentation. Patient taken to ED per Dr. Bosch. POP V is compressible, spontaneous, phasic, A preliminary report was called and/or faxed competent and demonstrates normal to Dr. Bosch. augmentation. T/P Trunk is compressible. LT PerV is compressible. Lt PTV and Lt SoleusV are dilated and NON COMPRESSIBLE consistent with acute DVT. VL/Venous Duplex US, Unilateral Interpretation Summary Acute deep venous thrombosis left posterior tibial and soleus veins Patent and compressible left great saphenous vein Normal flow patterns right common femoral vein Ordering Physician: Zoran Bosch Referring Physician: Shahzad Reynolds Performed By: Hannah Gaitan, JANAE, RVT
== END | disposition home or self-care (01) ==
LOC: CVS 14:25
PROVIDERS: PCP Internal Medicine; Referring Provider Orthopaedic Surgery Sports Medicine; Visit Provider Orthopaedic Surgery Sports Medicine
DX: M79.605 Pain in left leg (principal)
CPT/HCPCS: 93971

== ENCOUNTER 2023-02-05 14:30 | Outpatient (RCR) | payer MEDICAID, SELFPAY ==
--- NOTE | 2022-12-23 09:21 | HP.PTEVAL_ITS ---
Patient's Visit Information Visit Information Visit Information: BALJIT WYNN is a 52 year old F referred to Physical Therapy by Dr. Zoran Bosch MD with a diagnosis of Medial Meniscal Repair 10/24/22. Date of Evaluation: 12/23/22 Physical Therapist: Yasmeen Louis DPT Visit Plan Frequency: 2x /Week Duration: 4 Weeks Plan: Pt requests Aquatic Therapy- Medial Meniscal Repair 10/24/22- no restrictio ns HEP Given IE: Bolster Extn Stretch, TKE, SLS, Stairs, Sit to Stand Subjective Subjective: Patient medial meniscal repair 10/24/[address] Bosch. She is a little over 8 weeks out currently. She fully weight bearing at this time and not wearing the brace anymore. She saw him last about 2 weeks and he thought everything looked good and he wanted her to get into therapy and get stronger. She is having occasional pain in the knee but it does not last very long. Worst: 7/10 Agg: being on it for long periods of time. Best: 0/10 Eases: sitting down and rest and she does ice. Pain is located in the top of the knee and along the medial joint line. Describes the pain as dull and achy but does have a sharp pain. No N/T. No radiating pain. Work: she does not work- she is pretty active during the day. 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 She feels that she back to 70% of her normal- still feels that she walks funny. She is driving without an issue. Sleep: not disturbed. PMHx/Meds:no changes since she saw ortho. Objective Objective: Posture: FH, RS- can correct but does not maintain Gait: antalgic- decrease stance on the left LE with poor heel strike due to decreased extension HR/TR: able with UE A SLS: WS but does not SLS more than 2-3 sec without LOB Stairs: asc/desc 8'' recip with 2 HR- poor control with descent Palpation: tender along medial joint line and proximal patella ROM:10-120 degrees Strength: Core: fair minus, Hip: 4/5 throughout, Knee: Extn:36/40 Flex: 11/14 Ankle: 5/5 Flex: HS: moderate Gastroc: moderate Balance/Special Test Scores Lower Extremity Functional Score: 25 Goals Goal 1:: Patient will be I with HEP and progression Goal Time Frame: 4-6 Weeks Goal 2:: Patient will ambulate >300 feet with a normalized gait pattern Goal Time Frame: 4-6 Weeks Goal 3:: Patient will asc/desc 8 stairs recip with 1 HR Goal Time Frame: 4-6 Weeks Goal 4:: Patient will demo 0-125 degrees of ROM in the left knee Goal Time Frame: 4-6 Weeks Goal 5:: Patient will report 80% improvement Goal Time Frame: 4-6 Weeks Rehabilitation Potential Physical Therapy Diagnosis: Patient presents with hypomobility s/p Medial Meniscal Repair 10/24/22- she has decreased pain free ROM, LE and core strength/stabilization, flex and muscular endurance leading to abnormal gait and decreased ability to perform ADL's Rehabilitation Potential: Good Anticipated Interventions Patient/Client Instruction: Educate patient on: Benefits of Fitness Program Therapeutic Exercise to Include: Strength training, Endurance training, Balance training, Coordination, Agility training, Body mechanics, Postural training, Flexibilty training, Gait and locomotor training, Neuromotor development, In an aquatic setting, Passive ROM, Active ROM, Dynamic Lumbar Stabilization and S capular Strength/Stabilization For the Purpose of:: To improve muscle performance and motor function Manual Therapy Techniques to Include: Soft tissue mobilization TENS: Yes Cryotherapy (ice pack, ice massage): Yes Thermo therapy (hot pack): Yes Text: Thank you for the opportunity to evaluate your patient. For Medicare and Medicare HMO plans, please review the plan of care and approve it. It will need to be FAXED BACK to us at [phone] for Medicare purposes. For Medicare only, by signing this I certify the plan of care. Please let me know if there are questions or concerns regarding this plan of care. Physician Signature: Date:
--- NOTE | 2023-02-18 07:31 | HP.PT.NRP ---
Patient Information Patient Information: BALJIT WYNN was seen in my office for initial evaluation on 12/23/22. The following Plan of Care was established for this patient: POC Established Initial Frequency: 2x /Week Initial Duration: 4 Weeks Anticipated Interventions Patient/Client Instruction: Educate patient on: Benefits of Fitness Program Therapeutic Exercise to Include: Strength training, Endurance training, Balance training, Coordination, Agility training, Body mechanics, Postural training, Flexibilty training, Gait and locomotor training, Neuromotor development, In an aquatic setting, Passive ROM, Active ROM, Dynamic Lumbar Stabilization and Scapular Strength/Stabilization For the Purpose of:: To improve muscle performance and motor function Manual Therapy Techniques to Include: Soft tissue mobilization TENS: Yes Cryotherapy (ice pack, ice massage): Yes Thermo therapy (hot pack): Yes Last Seen Last Seen: This patient was last seen in our office . Pertinent comments regarding their Physical therapy will appear below: Patient reports that she is going through a lot of emotional stress that is limiting her participation and ability to attend therapy and is appropriate to be discharged from therapy at this time. At this point I will be discontinuing this patient from physical therapy. I would be happy to see this patient again in the future if found appropriate by the physician. Thank you! Yasmeen Louis, DPT Balance/Gait/Functional tests Balance/Special Test Scores Lower Extremity Functional Score: 21
== END 2023-02-05 19:00 | disposition home or self-care (01) ==
LOC: PT 14:30
PROVIDERS: PCP Internal Medicine; Referring Provider Orthopaedic Surgery Sports Medicine; Visit Provider Orthopaedic Surgery Sports Medicine
DX: S83.242D Other tear of medial meniscus, current injury, left knee, subsequent encounter (principal)
CPT/HCPCS: 97110; 97113; 97162; 97164

== ENCOUNTER → 2023-07-01 | Outpatient (CLI) | payer MEDICAID, SELFPAY ==
[2023-07-01 16:59] LABS: Absolute Lymphocyte Count 4.15 X10^3/uL (0.83-4.51); Absolute Neutrophil Count 2.4 X10^3/uL (2.0-7.7); Basophil# 0.08 X10^3/uL; Basophil% 1.1 % (0-1); Eosinophil# 0.24 X10^3/uL; Eosinophils% 3.3 % (0-5); Hematocrit 42.9 % (37-47); Hemoglobin 13.4 g/dL (12.0-15.0); Lymphocyte # 4.15 X10^3/ul (0.83-4.51); Lymphocyte % 57.1 % (19-41); Mean Corp Hgb Conc 31.2 g/dL (32-36); Mean Corpuscular Volume 86.5 fL (81-99); Mean Platelet Vol. 10.3 fl (6.2-12.0); Monocyte# 0.38 X10^3/uL; Monocyte% 5.2 % (0-10); NRBC Flagged by Analyzer 0 % (0-5); Neutrophil # 2.41 X10^3/uL (2.7-7.7); Neutrophil % 33.2 % (47-70); Platelet Count 379 K/mm3 (150-450); RBC Distribution Width CV 12.4 % (11.6-14.6); RBC Distribution Width SD 38.8 fl (35.1-43.9); Red Blood Count 4.96 M/mm3 (4.2-5.4); White Blood Count 7.3 K/mm3 (4.4-11.0)
[2023-07-01 17:47] LABS: Anion Gap 5 (5-15); BUN 7 mg/dL (7-18); Calcium,Total 9.5 mg/dL (8.5-10.1); Chloride 102 mmol/L (98-107); Cholesterol 270 mg/dL (200); Creatinine, Serum 0.99 mg/dL (0.55-1.02); EST Glomerular Filtration Rate 62 mL/min (>60); Est Glom Filt Rate - Afr Amer 76 mL/min (>60); Glucose 121 mg/dL (74-106); High Density Lipoprotein 96 mg/dL; Sodium Level 138 mmol/L (136-145); Thyroid Stim Hormone (TSH) 7.98 uIU/mL (0.358-3.74); Triglycerides 153 mg/dL; Very Low Density Lipoprotein 31 mg/dL (5-40)
[2023-07-01 18:16] LABS: Hemoglobin A1c 6.2 % (3.8-5.6)
== END | disposition home or self-care (01) ==
LOC: BIMLAB 16:13
PROVIDERS: PCP Internal Medicine; Visit Provider Internal Medicine
DX: I10 Essential (primary) hypertension (principal); E03.9 Hypothyroidism, unspecified; R73.03 Prediabetes
CPT/HCPCS: 36415; 80048; 80061; 83036; 84443; 85025

== ENCOUNTER → 2023-07-27 | Outpatient (CLI) | payer MEDICAID, SELFPAY ==
--- NOTE | 2023-07-27 15:30 | MRI_ITS ---
STUDY: MRI RIGHT KNEE REASON FOR EXAM: Female, 53 years old. Assess medial meniscus, right knee pain. TECHNIQUE: Standardized fat and water weighted pulse sequences were obtained in all 3 orthogonal planes. COMPARISON: Right knee radiographs dated 07/06/2023. FINDINGS: There is a tiny partial radial tear of the posterior horn of the medial meniscus (coronal PD series 5 image 19). There is mild degenerative arthrosis of the medial femorotibial compartment with small marginal osteophyte formation and low-grade chondromalacia. Normal medial collateral ligamentous complex (MCL). Normal distal semimembranosus, gracilis and semitendinosus tendons. Normal lateral meniscus. Normal hyaline cartilage of the lateral femorotibial compartment. There is mild osteoarthritic spur formation of the lateral knee compartment. Normal proximal tibiofibular articulation. Normal lateral collateral ( fibular ) ligament. Normal popliteus tendon. Normal biceps femoris tendon. Normal anterior cruciate ligament (ACL). Normal posterior cruciate ligament (PCL). There is degenerative arthrosis of the patellofemoral compartment with joint space narrowing, small marginal osteophyte formation, low to moderate grade patellofemoral chondromalacia, and subchondral marrow edema along the lateral femoral trochlea. Congruent patellofemoral articulation. Normal medial and lateral patellar retinaculum. Normal quadriceps tendon. Normal patellar tendon. Normal Hoffa''s fat pad. There is a small joint effusion. There is a small popliteal cyst. There is mild subcutaneous soft tissue edema along the anterior aspect of the knee. There is no acute fracture. MRI/Lower Ext Joint Only (Routine) IMPRESSION: Tiny partial radial tear of the posterior horn of the medial meniscus. Mild tricompartment degenerative arthrosis, most pronounced in the patellofemoral compartment. Small joint effusion with a small popliteal cyst. Mild subcutaneous soft tissue edema along the anterior aspect of the knee. Electronically Signed: Giovanny Madden MD at 8:39 EDT ,
== END | disposition home or self-care (01) ==
LOC: MRI 15:25
PROVIDERS: PCP Internal Medicine; Referring Provider Internal Medicine; Visit Provider Internal Medicine
DX: M17.11 Unilateral primary osteoarthritis, right knee (principal); M25.461 Effusion, right knee
CPT/HCPCS: 73721

== ENCOUNTER → 2023-08-25 | Outpatient (CLI) | payer MEDICAID, SELFPAY ==
[2023-08-25] MEDS: Lidocaine 2% (20 ml mdv) 20 ML Vial INFILT (10:00)
--- NOTE | 2023-08-25 10:55 | PRO.PCM_ITS ---
Procedure Report Date of Procedure: 08/25/23 Assessment & Plan Assessment/Plan (1) Bakers cyst: QUALIFIERS: Laterality: right Qualified Code(s): M71.21 - Synovial cyst of popliteal space [Cullen], right knee PLAN: PROCEDURE: Ultrasound guided drainage of Cullen's cyst ORDERING PROVIDER: Dr. Bosch INDICATION: Female, 53 years old. Right Cullen's cyst. PROVIDER: JACOBO Reyez TECHNIQUE: The risks, benefits, and alternatives to the procedure were explained to the patient. The specific risks of bleeding and infection were detailed and acce pted. Witnessed informed consent was obtained. The right popliteal region was ultrasonographically surveyed. The cyst was identified. The skin was prepped with chlorhexidine and sterile field establi shed. 2% lidocaine was used for local anesthetic. Using ultrasound guidance, the cyst was accessed with a 5-[place] Phizzboesis needle/catheter system. The trocar was removed. A total of 10 ml of clear yellow colored fluid was aspirated from the peritoneal cavity. The catheter was removed and a sterile dressing was applied. The procedure was well tolerated. IMPRESSION: Successful ultrasound-guided drainage of right Cullen's cyst. Procedures Radiology Radiology US Procedures: 77368 Cyst Puncture (Outpatient)
== END | disposition home or self-care (01) ==
PROVIDERS: PCP Internal Medicine; Referring Provider Orthopaedic Surgery Sports Medicine; Visit Provider Orthopaedic Surgery Sports Medicine
DX: S83.241A Other tear of medial meniscus, current injury, right knee, initial encounter (principal); M71.21 Synovial cyst of popliteal space [Baker], right knee
CPT/HCPCS: 10160; 76942

== ENCOUNTER → 2023-10-13 | Outpatient (CLI) | payer MEDICAID, SELFPAY ==
--- NOTE | 2023-10-13 16:23 | RAD_ITS ---
STUDY: X-RAY - LUMBAR SPINE REASON FOR EXAM: Female, 53 years old. pain TECHNIQUE: 2 view(s) of the lumbar spine were obtained. COMPARISON: 06/12/2021 FINDINGS: Normal lumbar lordosis. There is no substantial scoliosis. There is 7 mm anterolisthesis of L4 on L5, also present previously. There is otherwise normal alignment of the vertebrae. Mild narrowing of the disks at L4-L5 and L5-S1, stable, otherwise negative vertebral bodies and discs. There is no demonstrated fracture. The soft tissue structures are unremarkable. RAD/Lumbar Spine 2 or 3 Views IMPRESSION: Degenerative changes of the lower lumbar spine, stable since previous exam. No acute abnormality. Electronically Signed: Hank Ferreira MD at 20:59 EDT ,
== END | disposition home or self-care (01) ==
LOC: MTRAD 16:23
PROVIDERS: PCP Internal Medicine; Referring Provider Physician Assistant; Visit Provider Physician Assistant
DX: M54.9 Dorsalgia, unspecified (principal)
CPT/HCPCS: 72100

== ENCOUNTER → 2023-11-16 | Outpatient (CLI) | payer MEDICAID, SELFPAY ==
[2023-11-16 16:21] LABS: Thyroid Stim Hormone (TSH) 4.06 uIU/mL (0.358-3.74)
== END | disposition home or self-care (01) ==
PROVIDERS: PCP Internal Medicine; Referring Provider Internal Medicine; Visit Provider Internal Medicine
DX: E03.9 Hypothyroidism, unspecified (principal)
CPT/HCPCS: 36415; 84443

== ENCOUNTER → 2023-12-10 | Outpatient (CLI) | payer MEDICAID, SELFPAY ==
--- NOTE | 2023-12-10 16:56 | MRI_ITS ---
STUDY: MRI LUMBAR SPINE WITHOUT CONTRAST REASON FOR EXAM: Female, 53 years old. Pain, leg weakness, difficulty standing, lumbar xrays TECHNIQUE: Standardized fat and water weighted pulse sequences were obtained in the sagittal and axial planes. COMPARISON: None FINDINGS: T12-L1: Mild broad disc protrusion produces minimal spinal stenosis and minimal bilateral neural foraminal stenosis. Prominent Schmorl''s node within the superior endplate of L1. Normal lumbar lordosis. There is no substantial scoliosis. Normal conus medullaris that terminates at the L2. L1-2: Normal endplates. Normal disc height, hydration and morphology. Normal bilateral facet joints. Normal central canal and bilateral lateral recesses. Normal bilateral intervertebral neural foramina. L2-3: Normal endplates. Normal disc height, hydration and morphology. Normal bilateral facet joints. Normal central canal and bilateral lateral recesses. Normal bilateral intervertebral neural foramina. L3-4: Normal endplates. Normal disc height, hydration and morphology. Normal bilateral facet joints. Normal central canal and bilateral lateral recesses. Normal bilateral intervertebral neural foramina. L4-5: Moderate bilateral facet hypertrophy and severe ligament flavum hypertrophy. Mild bilobed disc protrusion produces mild spinal stenosis and mild bilateral neural foraminal stenosis. L5-S1: Moderate bilateral facet hypertrophy and ligament flavum hypertrophy. Disc desiccation but no disc protrusion, spinal stenosis, neural foraminal stenosis. Normal visualized sacral ala. Mild friction related edema in the posterior simultaneous fat. MRI/Spine Lumbar (Routine) IMPRESSION: Multilevel degenerative changes, as described above. Electronically Signed: Juan Feldman MD at 12:10 EDT ,
== END | disposition home or self-care (01) ==
LOC: MRI 16:52
PROVIDERS: PCP Internal Medicine; Referring Provider Orthopaedic Surgery Orthopaedic Surgery of the Spine; Visit Provider Orthopaedic Surgery Orthopaedic Surgery of the Spine
DX: R29.818 Other symptoms and signs involving the nervous system (principal); M43.16 Spondylolisthesis, lumbar region
CPT/HCPCS: 72148

== ENCOUNTER 2023-12-28 15:57 | Outpatient (RCR) | payer MEDICAID, SELFPAY | END 2023-12-28 19:00 | disposition home or self-care (01) | LOC: PT 15:57 | PROVIDERS: PCP Internal Medicine; Referring Provider Physician Assistant; Visit Provider Physician Assistant | DX: M54.9 Dorsalgia, unspecified (principal) | CPT/HCPCS: 97162 ==

== ENCOUNTER 2024-01-30 16:48 | Emergency (ER) | payer MEDICAID, SELFPAY ==
[2024-01-30 16:50] VITALS: BP 166/100; PULSE 75; RESP 18; TEMP 36.1; O2SAT 100; BMI 44.6
--- NOTE | 2024-01-30 17:07 | EKG12_ITS ---
Test Reason : CP Blood Pressure : / mmHG Vent. Rate : 064 BPM Atrial Rate : 064 BPM P-R Int : 174 ms QRS Dur : 084 ms QT Int : 414 ms P-R-T Axes : 038 -09 061 degrees QTc Int : 427 ms Normal sinus rhythm Minimal voltage criteria for LVH, may be normal variant ( R in aVL ) Borderline ECG Confirmed by Kai Lucero ([id number]), international editorial producer BARBIE SUNG ([id number]) on 02/01/2024 10:09:51 AM Referred By: BB/TA Confirmed By:Kai Lucero
--- NOTE | 2024-01-30 17:08 | ED.VIS.CHEST ---
HPI History of Present Illness Chief Complaint: Chest Pain Informant: patient and family Narrative Narrative: 54-year-old female states she has had left lower lip swelling and chest discomfort radiating to her left arm and her left neck for the past hour or 2. She states the lip swelling she thinks is from some THC rub that she was putting on some areas of her body and accidentally got some on her lip in this area. Started getting numb and then she washed it off and later started getting swollen. She denies any dyspnea but has been having some dyspnea on exertion for the last 2 or 3 weeks that is new for her. She does not have a history of heart or lung problems but she does have a history of a DVT that was provoked after knee surgery. This was about a year or so ago, she is not taking anticoagulants anymore and has no symptoms of a DVT recently or long immobilization/hospitalization or surgery recently. She did have angioedema in the past when she was taking lisinopril, she has been off of it ever since and instead is on Norvasc. [facility] Medical History Tear of medial meniscus of right knee Left wrist pain Right knee pain Thyromegaly Ear discomfort Post-menopausal Alcohol use History of steroid therapy Thyroid disease Back pain History of pain when walking History of edema Normal stress echocardiogram History of echocardiogram Cardiology follow-up encounter Pre-op evaluation Prediabetes Generalized anxiety disorder Adjustment disorder Vitamin D deficiency Wears partial dentures Wears glasses Loose, teeth Substance abuse Marijuana use Depression Hypothyroid Arthritis Gastric reflux Smoker Upper respiratory infection Exposure to COVID-19 virus Suspected COVID-19 virus infection Hypersomnolence Chronic back pain Urticaria Anxiety Excessive somnolence disorder Hypertension Hypothyroidism (acquired) Abnormal EKG ADHD (attention deficit hyperactivity disorder) Labyrinthitis Vertigo Home Medications ?Medication ?Instructions ?Recorded ?Last Taken ?Type acetaminophen 500 mg tablet 500 - 1,000 mg (1 - 2 x 500 mg) PO 12/18/21 Unknown Rx (Tylenol Extra Strength) Q6H PRN pain #60 tabs SEA ELIZONDO GEL 1 tsp PO DAILY 10/16/22 Unknown History ashwagandha extract 120 mg capsule 120 mg PO DAILY 10/16/22 Unknown History lidocaine 4 % topical patch See Rx Instructions .Route 07/20/23 Unknown Rx .COMPLEX #60 patches amlodipine 10 mg tablet See Rx Instructions .Route 09/04/23 Unknown Rx .COMPLEX #90 tabs conjugated estrogens 0.9 mg tablet 0.9 mg PO DAILY #90 tabs 10/22/23 Unknown Rx duloxetine 30 mg capsule,delayed 30 mg PO BID #60 caps 10/27/23 Unknown Rx release (Cymbalta) levothyroxine 112 mcg tablet See Rx Instructions .Route 12/01/23 Unknown Rx .COMPLEX #90 tabs lorazepam 2 mg tablet (Ativan) 2 mg PO ONCE claustrohobia #2 tabs 12/10/23 Unknown Rx hydrochlorothiazide 12.5 mg tablet See Rx Instructions .Route 12/11/23 Unknown Rx .COMPLEX #90 tabs Allergy/AdvReac Type Severity Reaction Status Date / Time codeine Allergy Itching Verified 01/30/24 16:50 lisinopril Allergy Angioedema Verified 01/30/24 16:50 Family History Sister , of [place] CAD (coronary artery disease) Myocardial infarction Sudden cardiac Father Pancreatic cancer Surgical History Status post arthroscopic surgery of left knee Hx of tooth extraction Hx of wisdom tooth extraction History of bilateral carpal tunnel release History of appendectomy History of hysterectomy History of tubal ligation Social History Smoking Status: Current every day smoker tobacco type: cigarettes Tobacco: How many years used: 30 alcohol intake: current alcohol intake frequency: holidays/special occasions only substance use type: marijuana what type of physical activity do you participate in: none ROS ROS ED Constitutional Constitutional ED: Denies chills or fever(s) Eyes Eyes: Denies change in vision or diplopia ENT ENT ED: Reports other Details: lower lip swelling ; Denies rhinorrhea or sore throat Cardiovascular Cardiovascular: Reports as per HPI, chest pain and radiating jaw, neck or arm pain; Denies lightheadedness, palpitations or syncope Respiratory/Chest Respiratory/Chest: Denies cough or dyspnea Gastrointestinal Gastrointestinal: Denies abdominal pain, diarrhea, nausea or vomiting Genitourinary Genitourinary ED: Denies dysuria or hematuria Musculoskeletal Musculoskeletal: Denies back pain or neck pain Integumentary Denies abscess or rash Neurologic Neurologic: Denies headache(s), paresthesias or weakness Psychiatric Psychiatric: Reports anxiety; Denies suicidal thoughts EXAM Physical Exam Const Vital Signs: 01/30/24 16:50 01/30/24 17:22 01/30/24 17:49 Temperature 97 F L Temperature Source Temporal Pulse Rate 75 72 Respiratory Rate 18 19 H Blood Pressure 166/100 H 139/76 H Blood Pressure Mean 122 97 Pulse Ox 100 100 Oxygen Delivery Method Room Air Room Air 01/30/24 18:00 01/30/24 19:00 01/30/24 19:00 Temperature Temperature Source Pulse Rate 72 94 88 Respiratory Rate 19 H 22 H 20 H Blood Pressure 139/76 H 126/105 H 126/105 H Blood Pressure Mean 97 113 112 Pulse Ox 100 98 99 Oxygen Delivery Method Room Air 01/30/24 20:00 Temperature Temperature Source Pulse Rate 84 Respiratory Rate 21 H Blood Pressure 138/104 H Blood Pressure Mean 115 Pulse Ox 97 Oxygen Delivery Method Room Air Positive well nourished, well developed and obese General Appearance ED: well developed and NAD Nutritional Appearance: obese HEENT Reports moist mucous membranes HEENT Narrative: Focal left lower lip swelling without tenderness. No tongue involvement. No stridor. Otherwise normal HEENT exam. normocephalic and atraumatic Eyes PERRL and EOMs intact bilaterally Neck full ROM and supple Resp normal respiratory effort and clear to auscultation bilaterally Cardio regular rate, regular rhythm and no murmurs GI non-tender and non-distended Auscultation: normoactive bowel sounds Palpation: soft Back/Spine no CVA tenderness General Back: other FROM Extremity normal to inspection General Extremety ED: Negative for edema, pulses abnormal or tenderness General Extremity: Negative for edema or pulses abnormal Neuro oriented x3, CN's II-XII intact bilaterally and no sensory deficits noted Sensorium / Orientation: awake and alert Motor Exam: strength 5/5 throughout Psych mental status grossly normal Mood & Affect: anxious Skin no rashes or lesions noted and no wounds MDM MDM MDM Narrative Medical decision making narrative: Chest discomfort along with lip swelling makes 1 consider anaphylaxis, however this patient is not anaphylactic. Her pressure is a little high, not low, she is not tachycardic, she has no other signs of anaphylaxis, she does not have wheezing in her lungs. I am not sure that the 2 symptoms are definitely related. She does not have sharp tearing sensation to suggest dissection and 1 view chest x-ray my interpretation is unremarkable showing narrow mediastinum, and I think the rub that she got on her lip accidentally probably caused the swelling she is in agreement, and states that it was on that particular area that she accidentally applied the rub. Given her normal EKG, it is possible this is GI related chest discomfort, she states it is not severe pain it is just a vague discomfort but the presence of it concerned her. Therefore while working her up including a D-dimer given her history of pulmonary emboli, and giving her a GI cocktail to see if that helps considering GI etiologies. She thinks it helped. Initial troponin 6, second set of troponins also 6 for delta of 0, in context of a negative EKG and a low heart score, comfortable letting her go. With regards to her lip swelling, she thought it was getting worse, and she stated to us that this was similar to when she had angioedema due to lisinopril, she is not on lisinopril or an ARB, we tried giving her epinephrine to did not do anything but later we noticed that it was improved and she agreed, compared with when she arrived. I do think this was due to the topical agent accidentally put on her lip. She is comfortable with going home, we have had her here for 3 to 4 hours without any signs of life-threatening angioedema or airway involvement, we discussed reasons to return she is comfortable with the plan. Lab Data Attestation: I reviewed the patient's lab results. Labs: Laboratory Results - last 24 hr 01/30/24 01/30/24 17:10 19:27 WBC 10.7 RBC 4.68 Hgb 12.8 Hct 40.6 MCV 86.8 MCH 27.4 MCHC 31.5 L RDW Std Deviation 39.8 RDW Coeff of Eulalia 12.6 Plt Count 326 MPV 10.0 Immature Gran % (Auto) 0.300 Neut % (Auto) 41.9 L Lymph % (Auto) 47.8 H Rutherford % (Auto) 6.1 Eos % (Auto) 3.2 Baso % (Auto) 0.7 Absolute Neuts (auto) 4.5 Absolute Lymphs (auto) 5.10 H Nucleated RBC % 0 Differential Comment SCANNED D-Dimer Quant (PE/DVT) 0.37 Sodium 135 L Potassium 5.3 H Chloride 104 Carbon Dioxide 26.0 Anion Gap 5 BUN 14 Creatinine 1.11 H Estim Creat Clear Calc 74.90 Est GFR (MDRD) Af Amer 66 Est GFR (MDRD) Non-Af 55 L BUN/Creatinine Ratio 12.6 Glucose 93 Calcium 9.5 Troponin I High Sens 6 6 Radiography Diagnostic Testing: Clinical Impression(s) from Imaging Studies Chest X-Ray 01/30/24 17:25 IMPRESSION: No radiographic evidence of acute cardiopulmonary disease. Electronically Signed: Erik Corbett DO at 18:39 EDT Reading Location ID and State: [facility] / [place] Tel [phone], Service support , Rhythm Strip Rhythm Strip: Sinus Rhythm Rate: 65 Ectopy: None EKG Initial EKG: Attestation: I personally reviewed and interpreted this EKG as follows: Interpretation: Sinus Rhythm and No Acute Injury Pattern Comments: Normal EKG Discharge Plan Triage Chief Complaint: Chest Pain ED Provider: Patrick Machuca Dx/Rx/DC Orders Clinical Impression: Lip swelling, Chest pain, unspecified Instructions: ED Chest Pain, Noncardiac Prescriptions: No Action SEA ELIZONDO GEL 1 tsp PO DAILY ashwagandha extract 120 mg capsule 120 mg PO DAILY acetaminophen [Tylenol Extra Strength] 500 mg tablet 500 - 1,000 mg PO Q6H MDD 4,000mg PRN (Reason: pain) Qty: 60 0RF lidocaine 4 % adhesive patch,medicated See Rx Instructions .ROUTE .COMPLEX Qty: 60 0RF Dose Instruction: remove old and apply 1 (ONE) new patch EVERY DAY NEEDED FOR PAIN Rx Instructions: remove old and apply 1 (ONE) new patch EVERY DAY NEEDED FOR PAIN amlodipine 10 mg tablet See Rx Instructions .ROUTE .COMPLEX Qty: 90 0RF Dose Instruction: TAKE 1 TABLET BY MOUTH EVERY DAY Rx Instructions: TAKE 1 TABLET BY MOUTH EVERY DAY conjugated estrogens 0.9 mg tablet 0.9 mg PO DAILY Qty: 90 0RF duloxetine [Cymbalta] 30 mg capsule,delayed release(DR/EC) 30 mg PO BID Qty: 60 0RF levothyroxine 112 mcg tablet See Rx Instructions .ROUTE .COMPLEX Qty: 90 0RF Dose Instruction: TAKE 1 TABLET BY MOUTH EVERY DAY Rx Instructions: TAKE 1 TABLET BY MOUTH EVERY DAY lorazepam [Ativan] 2 mg tablet 2 mg PO ONCE MDD take 1-2 tab 30 min before MRI Qty: 2 0RF hydrochlorothiazide 12.5 mg tablet See Rx Instructions .ROUTE .COMPLEX Qty: 90 1RF Dose Instruction: TAKE 1 TABLET BY MOUTH EVERY morning Rx Instructions: TAKE 1 TABLET BY MOUTH EVERY morning Primary Care Provider: Shahzad Reynolds Referrals: Shahzad Reynolds MD [Primary Care Provider] - 3-5 Days if not improving Activity Restrictions/Additional Instructions: Consider taking [id number] Pepcid or Prilosec or Prevacid once daily if you continue to have the chest discomfort, it may be related to reflux. Print Language: Icelandic Disposition Disposition: Home, Self Care
[2024-01-30] MEDS: Lidocaine 2% Viscous15 ML UDC 15 ML PO (17:19)
[2024-01-30] MEDS: Mag /Aluminum/Simeth WCH UDC 30 ML ORAL.SUSP PO (17:19)
--- NOTE | 2024-01-30 17:25 | RAD_ITS ---
INDICATION: chest pain EXAMINATION/TECHNIQUE: X-RAY - XR Chest 1 View COMPARISON: FINDINGS: LINES/DEVICES: None. LUNGS: No consolidation, edema or effusion. No pneumothorax. MEDIASTINUM AND CARDIOVASCULAR STRUCTURES: Cardiac silhouette not enlarged. Central airways and mediastinal contour are unremarkable. BONES AND SOFT TISSUES: Degenerative vertebral changes. RAD/Chest 1 View (Portable) IMPRESSION: No radiographic evidence of acute cardiopulmonary disease. Electronically Signed: Erik Corbett DO at 18:39 EDT ,
[2024-01-30 17:34] LABS: Absolute Neutrophil Count 4.5 X10^3/uL (2.0-7.7); Basophil# 0.08 X10^3/uL; Basophil% 0.7 % (0-1); Eosinophil# 0.34 X10^3/uL; Eosinophils% 3.2 % (0-5); Hematocrit 40.6 % (37-47); Hemoglobin 12.8 g/dL (12.0-15.0); Lymphocyte % 47.8 % (19-41); Mean Corp Hgb Conc 31.5 g/dL (32-36); Mean Corpuscular Hgb 27.4 pg (27.0-32.0); Mean Corpuscular Volume 86.8 fL (81-99); Monocyte# 0.65 X10^3/uL; Monocyte% 6.1 % (0-10); NRBC Flagged by Analyzer 0 % (0-5); Neutrophil # 4.48 X10^3/uL (2.7-7.7); Neutrophil % 41.9 % (47-70); POSITIVE DIFFERENTIAL YES; Platelet Count 326 K/mm3 (150-450); RBC Distribution Width CV 12.6 % (11.6-14.6); RBC Distribution Width SD 39.8 fl (35.1-43.9); Red Blood Count 4.68 M/mm3 (4.2-5.4); White Blood Count 10.7 K/mm3 (4.4-11.0)
[2024-01-30 17:49] VITALS: BP 139/76; PULSE 72; RESP 19; O2SAT 100
[2024-01-30 17:49] LABS: D-Dimer Quantitative (DVT/PE) 0.37 FEU/ug/m (0.27-0.49); Differential Indicated SCAN CRITERIA MET
[2024-01-30 17:54] LABS: Anion Gap 5 (5-15); BUN 14 mg/dL (7-18); BUN/Creat Ratio 12.6 RATIO (10-20); Calcium,Total 9.5 mg/dL (8.5-10.1); Chloride 104 mmol/L (98-107); Creatinine, Serum 1.11 mg/dL (0.55-1.02); EST Glomerular Filtration Rate 55 mL/min (>60); Est Glom Filt Rate - Afr Amer 66 mL/min (>60); Glucose 93 mg/dL (74-106); Potassium 5.3 mmol/L (3.5-5.1); Sodium Level 135 mmol/L (136-145); Troponin-I HS (w/2H Reflex) 6 pg/mL (3.0-54.0)
[2024-01-30 18:00] VITALS: BP 139/76; PULSE 72; RESP 19; O2SAT 100
--- NOTE | 2024-01-30 18:14 | ED.RN ---
PT STATES LIP IS CONTINUING TO SWELL. DR MERAZ AWARE. EPI ORDERED
[2024-01-30] MEDS: Epi Pen (EQUIV) 0.3 MG Syringe IM (18:15)
[2024-01-30 18:23] LABS: Differential Comment SCANNED
[2024-01-30 19:00] VITALS: BP 126/105; PULSE 88; PULSE 94; RESP 20; RESP 22; O2SAT 98; O2SAT 99
[2024-01-30 19:15] LABS: Reflex Troponin-HS? (from REC) Y
[2024-01-30 19:51] LABS: Troponin-I HS 6 pg/mL (3.0-54.0)
[2024-01-30 20:00] VITALS: BP 138/104; PULSE 84; RESP 21; O2SAT 97
[2024-01-30 21:00] VITALS: BP 141/78; PULSE 81; RESP 16; TEMP 36.2; O2SAT 97
== END 2024-01-30 21:14 | disposition home or self-care (01) ==
PROVIDERS: Emergency Provider Emergency Medicine; PCP Internal Medicine; Visit Provider Emergency Medicine
DX: R07.9 Chest pain, unspecified (principal); F17.210 Nicotine dependence, cigarettes, uncomplicated; Z86.718 Personal history of other venous thrombosis and embolism; K21.9 Gastro-esophageal reflux disease without esophagitis; I10 Essential (primary) hypertension; F41.9 Anxiety disorder, unspecified; E66.9 Obesity, unspecified; K13.0 Diseases of lips; T49.95XA Adverse effect of unspecified topical agent, initial encounter
CPT/HCPCS: 71045; 80048; 84484; 85025; 85379; 93005; 99284; A4216

== ENCOUNTER 2024-02-27 18:13 | Emergency (ER) | payer MEDICAID, SELFPAY ==
[2024-02-27 18:14] VITALS: BP 177/94; PULSE 92; RESP 16; TEMP 36.2; O2SAT 100; BMI 44.6
--- NOTE | 2024-02-27 20:45 | EX.ED.DYSGE1 ---
HPI History of Present Illness Chief Complaint: General Illness Informant: patient Narrative Narrative: Presenting complaints mild cough today with mild sore throat. No fevers. She states 2 weeks ago seen [facility] for groin rash she is on antifungals. She reported she had concerns for pinworms however denied any anal itching. She states things are crawling on her legs. She saw a white substance in her mouth. In addition, went to [place] [facility] for right lower dental pain currently on clindamycin. Denies sick contacts. She reports she had COVID 2 weeks ago with home test along with positive test at [facility] that was faint per patient. [facility] Medical History Tear of medial meniscus of right knee Left wrist pain Right knee pain Thyromegaly Ear discomfort Post-menopausal Alcohol use History of steroid therapy Thyroid disease Back pain History of pain when walking History of edema Normal stress echocardiogram History of echocardiogram Cardiology follow-up encounter Pre-op evaluation Prediabetes Generalized anxiety disorder Adjustment disorder Vitamin D deficiency Wears partial dentures Wears glasses Loose, teeth Substance abuse Marijuana use Depression Hypothyroid Arthritis Gastric reflux Smoker Upper respiratory infection Exposure to COVID-19 virus Suspected COVID-19 virus infection Hypersomnolence Chronic back pain Urticaria Anxiety Excessive somnolence disorder Hypertension Hypothyroidism (acquired) Abnormal EKG ADHD (attention deficit hyperactivity disorder) Labyrinthitis Vertigo Home Medications ?Medication ?Instructions ?Recorded ?Last Taken ?Type acetaminophen 500 mg tablet 500 - 1,000 mg (1 - 2 x 500 mg) PO 12/18/21 Unknown Rx (Tylenol Extra Strength) Q6H PRN pain #60 tabs SEA ELIZONDO GEL 1 tsp PO DAILY 10/16/22 Unknown History ashwagandha extract 120 mg capsule 120 mg PO DAILY 10/16/22 Unknown History lidocaine 4 % topical patch See Rx Instructions .Route 07/20/23 Unknown Rx .COMPLEX #60 patches conjugated estrogens 0.9 mg tablet 0.9 mg PO DAILY #90 tabs 10/22/23 Unknown Rx duloxetine 30 mg capsule,delayed 30 mg PO BID #60 caps 10/27/23 Unknown Rx release (Cymbalta) levothyroxine 112 mcg tablet See Rx Instructions .Route 12/01/23 Unknown Rx .COMPLEX #90 tabs lorazepam 2 mg tablet (Ativan) 2 mg PO ONCE claustrohobia #2 tabs 12/10/23 Unknown Rx hydrochlorothiazide 12.5 mg tablet See Rx Instructions .Route 12/11/23 Unknown Rx .COMPLEX #90 tabs amlodipine 10 mg tablet See Rx Instructions .Route 02/15/24 Unknown Rx .COMPLEX #60 tabs nystatin 100,000 unit/gram topical 1 applic topical TID #60 grams 02/20/24 Unknown Rx powder clotrimazole-betamethasone 1 1 applic topical BID 4 weeks #30 mL 02/25/24 Unknown Rx %-0.05 % lotion fluconazole 150 mg tablet 150 mg PO Q3D 2 doses #2 tabs 02/25/24 Unknown Rx Allergy/AdvReac Type Severity Reaction Status Date / Time codeine Allergy Itching Verified 02/27/24 18:13 lisinopril Allergy Angioedema Verified 02/27/24 18:13 Family History Sister , of [place] CAD (coronary artery disease) Myocardial infarction Sudden cardiac Father Pancreatic cancer Surgical History Status post arthroscopic surgery of left knee Hx of tooth extraction Hx of wisdom tooth extraction History of bilateral carpal tunnel release History of appendectomy History of hysterectomy History of tubal ligation Social History Smoking Status: Current every day smoker tobacco type: cigarettes Tobacco: How many years used: 30 alcohol intake: current alcohol intake frequency: holidays/special occasions only substance use type: marijuana what type of physical activity do you participate in: none ROS ROS ED Constitutional Constitutional ED: Denies chills, fever(s) or sweats Eyes Eyes: Denies change in vision ENT ENT ED: Reports sore throat; Denies dysphagia Cardiovascular Cardiovascular: Denies chest pain, leg edema, palpitations or racing heartbeat Respiratory/Chest Respiratory/Chest: Reports cough; Denies dyspnea or dyspnea on exertion Gastrointestinal Gastrointestinal: Denies abdominal pain, diarrhea, nausea or vomiting Genitourinary Genitourinary ED: Denies dysuria, hematuria or urinary frequency Musculoskeletal Musculoskeletal: Denies back pain, extremity pain or neck pain Integumentary Denies rash or wounds Neurologic Neurologic: Denies headache(s), paresthesias or weakness EXAM Physical Exam Const Vital Signs: 02/27/24 18:14 Temperature 97.2 F L Temperature Source Oral Pulse Rate 92 Respiratory Rate 16 Blood Pressure 177/94 H Blood Pressure Mean 121 Pulse Ox 100 Oxygen Delivery Method Room Air Positive well nourished and well developed General Appearance ED: well developed and NAD HEENT Reports moist mucous membranes HEENT Narrative: Mild posterior pharyngeal erythema. Minimal size tonsils bilaterally. Uvula midline. No exudates. normocephalic and atraumatic Eyes EOMs intact bilaterally and conjunctivae normal General Eye ED: Yes normal appearance of both eyes Neck no lymphadenopathy and supple General: Negative for tenderness Chest Wall Chest: Negative for tenderness Resp normal respiratory effort and normal air movement Effort and Inspection: symmetric chest movement; Negative for respiratory distress Cardio regular rate, regular rhythm and no murmurs Peripheral Pulses: pulses 2+ throughout GI normal to inspection, nondistended, normoactive bowel sounds and non-tender Palpation: Negative for guarding or rebound tenderness present Back/Spine no CVA tenderness and no thoracic nor lumbar tenderness Extremity normal to inspection General Extremety ED: Negative for edema or tenderness General Extremity: Negative for edema Neuro oriented x3 and no sensory deficits noted Sensorium / Orientation: awake and alert MDM MDM MDM Narrative Medical decision making narrative: Interventions / MDM: Differential diagnosis: Pharyngitis, viral syndrome Diagnosis considered but do not suspect: History not consistent with pinworms, no clinical peritonsillar abscess. My EKG interpretation: N/A Imaging independently reviewed and interpreted by myself: N/A External documents reviewed: N/A Test considered but not ordered:N/A ED course: Patient vital signs stable nontoxic. There is mild posterior pharyngeal erythema. Mild cough. Discussed and offered viral testing with COVID and strep. However discussed she is currently on clindamycin which should cover any strep infections. There is no clinical peritonsillar abscess. With this in mind with current treatment, patient declined any testing. Reassured on her history of concerns for pinworms this is not consistent as she has denies any anal itching. All her questions were answered. Outpatient follow-up. Re-evaluation: stable Disposition discussed with patient/family/significant other: Patient Case discussed with consulting clinician: N/A This note was generated with [employer] software. It may contain incorrect words, spelling, and punctuation that were not noted in checking the note before signing. Discharge Plan Triage Chief Complaint: General Illness ED Provider: Marcos Whitmore Dx/Rx/DC Orders Clinical Impression: Pharyngitis, Sore throat, Acute viral syndrome Instructions: ED Pharyngitis, Viral, ED Viral Syndrome (Adult) Prescriptions: No Action SEA ELIZONDO GEL 1 tsp PO DAILY ashwagandha extract 120 mg capsule 120 mg PO DAILY nystatin 100,000 unit/gram powder 1 applic topical TID Qty: 60 0RF fluconazole 150 mg tablet 150 mg PO Q3D 0 Days Qty: 2 0RF Rx Instructions: may repeat second dose 72 hrs after first dose if symptoms persist clotrimazole-betamethasone 1-0.05 % lotion 1 applic topical BID 28 Days Qty: 30 0RF acetaminophen [Tylenol Extra Strength] 500 mg tablet 500 - 1,000 mg PO Q6H MDD 4,000mg PRN (Reason: pain) Qty: 60 0RF lidocaine 4 % adhesive patch,medicated See Rx Instructions .ROUTE .COMPLEX Qty: 60 0RF Dose Instruction: remove old and apply 1 (ONE) new patch EVERY DAY NEEDED FOR PAIN Rx Instructions: remove old and apply 1 (ONE) new patch EVERY DAY NEEDED FOR PAIN conjugated estrogens 0.9 mg tablet 0.9 mg PO DAILY Qty: 90 0RF duloxetine [Cymbalta] 30 mg capsule,delayed release(DR/EC) 30 mg PO BID Qty: 60 0RF levothyroxine 112 mcg tablet See Rx Instructions .ROUTE .COMPLEX Qty: 90 0RF Dose Instruction: TAKE 1 TABLET BY MOUTH EVERY DAY Rx Instructions: TAKE 1 TABLET BY MOUTH EVERY DAY lorazepam [Ativan] 2 mg tablet 2 mg PO ONCE MDD take 1-2 tab 30 min before MRI Qty: 2 0RF hydrochlorothiazide 12.5 mg tablet See Rx Instructions .ROUTE .COMPLEX Qty: 90 1RF Dose Instruction: TAKE 1 TABLET BY MOUTH EVERY morning Rx Instructions: TAKE 1 TABLET BY MOUTH EVERY morning amlodipine 10 mg tablet See Rx Instructions .ROUTE .COMPLEX Qty: 60 0RF Dose Instruction: TAKE 1 TABLET BY MOUTH EVERY DAY Rx Instructions: TAKE 1 TABLET BY MOUTH EVERY DAY Primary Care Provider: Shahzad Reynolds Referrals: Shahzad Reynolds MD [Primary Care Provider] - Activity Restrictions/Additional Instructions: You are currently on clindamycin which covers for any potential strep throat. Use Tylenol or Motrin as needed help with symptoms. Finish your antibiotic. Follow-up with your doctor. Print Language: Lithuanian Disposition Disposition: Home, Self Care Discharge Date/Time: 02/27/24 19:53
== END 2024-02-27 19:53 | disposition home or self-care (01) ==
PROVIDERS: Emergency Provider Emergency Medicine; PCP Internal Medicine; Visit Provider Emergency Medicine
DX: B34.9 Viral infection, unspecified (principal); J02.9 Acute pharyngitis, unspecified; I10 Essential (primary) hypertension; K08.89 Other specified disorders of teeth and supporting structures; E03.9 Hypothyroidism, unspecified; Z11.52 Encounter for screening for COVID-19; F17.210 Nicotine dependence, cigarettes, uncomplicated; Z79.890 Hormone replacement therapy; Z79.899 Other long term (current) drug therapy
CPT/HCPCS: 99282

== ENCOUNTER → 2024-04-05 | Outpatient (CLI) | payer MEDICAID, SELFPAY | END | disposition home or self-care (01) | LOC: BIMLAB 08:18 | PROVIDERS: Physician Assistant; PCP Internal Medicine; Visit Provider Internal Medicine | DX: N95.1 Menopausal and female climacteric states (principal); E88.810 Metabolic syndrome; E66.9 Obesity, unspecified; E03.9 Hypothyroidism, unspecified | CPT/HCPCS: 80053; 82626; 82670; 83001; 83002; 83036; 84144; 84402; 84403; 84439; 84443; 36415; 82533; 82627 ==

== ENCOUNTER → 2024-04-20 | Outpatient (CLI) | payer MEDICAID, SELFPAY ==
[2024-04-20 18:22] LABS: Hemoglobin A1c 6.2 % (3.8-5.6)
[2024-04-20 18:44] LABS: ALB/GLOB Ratio 0.7 RATIO (0.9-2.4); AST(SGOT) 11 U/L (15-37); Alanine Aminotransfer ALT/SGPT 16 U/L (13-56); Alkaline Phosphatase 98 U/L (45-117); Anion Gap 6 (5-15); BUN 12 mg/dL (7-18); BUN/Creat Ratio 13.9 RATIO (10-20); Chloride 104 mmol/L (98-107); Creatinine, Serum 0.87 mg/dL (0.55-1.02); EST Glomerular Filtration Rate 73 mL/min (>60); Est Glom Filt Rate - Afr Amer 88 mL/min (>60); Estradiol 26.7 pg/mL; Follicle Stimulating Hormone 24.8 mIU/mL; Globulin 4.5 g/dL (2.2-4.2); Glucose 79 mg/dL (74-106); Luteinizing Hormone 20.4 mIU/mL; Potassium 3.5 mmol/L (3.5-5.1); Protein, Total 7.5 g/dL (6.4-8.2); Sodium Level 138 mmol/L (136-145); T4 Free Direct 0.89 ng/dL (0.76-1.46)
[2024-04-22 08:14] LABS: PROGESTERONE 0.1 ng/mL (.)
[2024-04-27 09:08] LABS: DHEA Sulfate 10.3 ug/dL (41.2-243.7); Testosterone, % Free 1.39 % (0.50-2.80); Testosterone, Free <.04 ng/dL (0.10-0.85); Testosterone, Total < 3 ng/dL (4-50)
== END | disposition home or self-care (01) ==
LOC: OPBI 16:43
PROVIDERS: PCP Internal Medicine; Referring Provider Physician Assistant; Visit Provider Physician Assistant
DX: E66.01 Morbid (severe) obesity due to excess calories (principal); Z68.41 Body mass index [BMI] 40.0-44.9, adult; E88.810 Metabolic syndrome; E03.9 Hypothyroidism, unspecified; N95.1 Menopausal and female climacteric states; E66.813 Obesity, class 3; R53.83 Other fatigue
CPT/HCPCS: 36415; 80053; 82533; 82627; 82670; 83001; 83002; 83036; 84144; 84402; 84403; 84439; 84443; 82626

== ENCOUNTER 2024-07-21 22:25 | Emergency (ER) | payer MEDICAID, SELFPAY ==
[2024-07-21 22:25] VITALS: BP 150/100; PULSE 114; RESP 14; TEMP 36.6; O2SAT 100; BMI 68.5
--- NOTE | 2024-07-21 22:44 | EDS_ITS ---
HPI History of Present Illness Chief Complaint: Chest Pain Informant: patient Narrative Narrative: 54-year-old female states at home tonight around 5 hours ago, she started feeling chest pressure, tingling in both of her arms, some lightheadedness, rapid palpitations, it has waxed and waned but for the most part been there since it started. She also states she has noticed some verifying specialist colored skin on her legs and she feels like there are red splotches/a rash. When asked if they were pruritic she states no at 1 point they were burning but it is asymptomatic at this time. She denies any edema in her feet or hands. No swelling of her tongue or anything else. Denies any known heart history. States she had 7 teeth pulled 2 or 3 weeks ago, she was on a week of antibiotics and prednisone, but she has been finished with those for about a week. She denies any recent leg pain or swelling unilaterally, pleuritic chest discomfort, radiation to the neck or the arm, diaphoresis, recent long travel or immobilization or surgery or hospitalization other than the teeth being pulled. She did have a DVT remotely, it was provoked by a knee surgery, she is no longer on anticoagulants and never had another blood clot or clotting disorder that she was diagnosed with. [facility] Medical History Borderline type 2 diabetes mellitus Morbid obesity Tear of medial meniscus of right knee Left wrist pain Right knee pain Thyromegaly Ear discomfort Post-menopausal Alcohol use History of steroid therapy Thyroid disease Back pain History of pain when walking History of edema Normal stress echocardiogram History of echocardiogram Cardiology follow-up encounter Pre-op evaluation Prediabetes Generalized anxiety disorder Adjustment disorder Vitamin D deficiency Wears partial dentures Wears glasses Loose, teeth Substance abuse Marijuana use Depression Hypothyroid Arthritis Gastric reflux Smoker Upper respiratory infection Exposure to COVID-19 virus Suspected COVID-19 virus infection Hypersomnolence Chronic back pain Urticaria Anxiety Excessive somnolence disorder Hypertension Hypothyroidism (acquired) Abnormal EKG ADHD (attention deficit hyperactivity disorder) Labyrinthitis Vertigo Home Medications ?Medication ?Instructions ?Recorded ?Last Taken ?Type acetaminophen 500 mg tablet 500 - 1,000 mg (1 - 2 x 50 0 mg) PO 12/18/21 Unknown Rx (Tylenol Extra Strength) Q6H PRN pain #60 tabs SEA ELIZONDO GEL 1 tsp PO DAILY 10/16/22 Unkn own History ashwagandha extract 120 mg capsule 120 mg PO DAILY 06/09 Unknown History duloxetine 30 mg capsule,delayed 30 mg PO BID #60 caps 10/27/23 Unknown Rx release (Cymbalta) conjugated estrogens 0.9 mg tablet 0.9 mg PO DAILY #90 tabs 04/05/24 Unknown Rx levothyroxine 112 mcg tablet See Rx Instructions .Rout e 05/06/24 Unknown Rx .COMPLEX #30 tabs amlodipine 10 mg tablet See Rx Instructions .Route 0 06/27/24 Unknown Rx .COMPLEX #90 tabs hydrochlorothiazide 12.5 mg tablet See Rx Instructions .Route 06/27/24 Unknown Rx .COMPLEX #90 tabs lidocaine 4 % topical patch See Rx Instructions .Route 06/27/24 Unknown Rx .COMPLEX #60 patches metformin 500 mg tablet,extended 500 mg PO BID #120 ta bs 06/27/24 Unknown Rx release 24 hr pregabalin 75 mg capsule 75 mg PO BID 06/27/24 Unknow n History Allergy/AdvReac Type Severity Reaction Status Date / Time codeine Allergy Itching Verified 07/21/24 22:26 lisinopril Allergy Angioedema Verified 07/21/24 22:26 Family History Sister , of [place] CAD (coronary artery disease) Myocardial infarction Sudden cardiac Father Pancreatic cancer Surgical History Status post arthroscopic surgery of left knee Hx of tooth extraction Hx of wisdom tooth extraction History of bilateral carpal tunnel release History of appendectomy History of hysterectomy History of tubal ligation Social History Smoking Status: Current every day smoker tobacco type: cigarettes Tobacco: How many years used: 30 alcohol intake: current alcohol intake frequency: holidays/special occasions only substance use type: marijuana what type of physical activity do you participate in: none ROS ROS ED Constitutional Constitutional ED: Denies chills or fever(s) Eyes Eyes: Denies change in vision or diplopia ENT ENT ED: Denies rhinorrhea or sore throat Cardiovascular Cardiovascular: Reports as per HPI, chest pain, palpitations and racing heartbeat Respiratory/Chest Respiratory/Chest: Reports dyspnea; Denies cough Gastrointestinal Gastrointestinal: Reports constipation; Denies abdominal pain, diarrhea, nausea or vomiting Genitourinary Genitourinary ED: Denies dysuria or hematuria Musculoskeletal Musculoskeletal: Denies back pain or neck pain Integumentary Denies abscess or rash Neurologic Neurologic: Reports paresthesias RUE and LUE; Denies headache(s) or weakness EXAM Physical Exam Const Vital Signs: 07/21/24 22:25 07/21/24 23:48 07/21/24 23:48 Temperature 98 F Temperature Source Temporal Pulse Rate 114 H Respiratory Rate 14 Respiratory Effort Short of Breath Blood Pressure 150/100 H Blood Pressure Mean 116 Pulse Ox 100 Oxygen Delivery Method Room Air Room Air 07/22/24 00:25 Temperature Temperature Source Pulse Rate 81 Respiratory Rate 20 H Respiratory Effort Blood Pressure 131/84 H Blood Pressure Mean 99 Pulse Ox 97 Oxygen Delivery Method Room Air Positive well nourished, well developed and obese General Appearance ED: well developed and NAD Nutritional Appearance: obese HEENT Reports moist mucous membranes normocephalic and atraumatic Eyes PERRL and EOMs intact bilaterally Neck full ROM and supple Resp normal respiratory effort and clear to auscultation bilaterally Cardio regular rate, regular rhythm and no murmurs Rate: tachycardic GI non-tender and non-distended Auscultation: normoactive bowel sounds Palpation: soft Back/Spine no CVA tenderness General Back: other FROM Extremity normal to inspection General Extremety ED: Negative for edema, pulses abnormal or tenderness General Extremity: Negative for edema or pulses abnormal Neuro oriented x3, CN's II-XII intact bilaterally, no sensory deficits noted and gait normal Sensorium / Orientation: awake and alert Motor Exam: strength 5/5 throughout Psych Mood & Affect: anxious Skin no rashes or lesions noted and no wounds Skin Narrative: I see no rash. There are no areas of focal skin discoloration that I can appreciate. Patient is -[place]cu[place], her legs look to be a little verifying specialist color than the rest of her but it does not appear to be a rash. There are no petechia, bullae, urticaria. Heart Score History: Moderately Suspicious ECG: Nonspecific Repolarization Age: >45 - <65 years Risk Factors: 1 or 2 Risk Factors Troponin: </= Normal Limit Score: 4 MDM MDM MDM Narrative Medical decision making narrative: When patient first arrived she was tachycardic around 120, but by the time she rested in the bed and was given me a history and we got an EKG her heart rate was about 102, the first set of labs and troponin are normal, but given that she has had pain for 4 or 5 hours, we did a second 1 and it actually went down and is now negative less than 6. Her D-dimer is also negative ruling out pulmonary embolus and DVT. Her chest x-ray 1 view is normal in my interpretation. On reexamination her heart rate is now 80 and her blood pressure is 131/84. She showed me a picture of the rash that she was referring to, I think the picture looks exactly the same as her leg does clinically and I cannot appreciate anything there. The patient was asking me if there was any way she could be poison with heavy metals, she was asking nursing if she could have liver disease. She is not jaundiced. I asked her if any of this could be anxiety, advising her that I am not diagnosing her with that, but that it could cause the symptoms and tachycardia. She states maybe. At this time I am reassuring her, I think she stable to go home and follow-up with her doctor as an outpatient she is comfortable with that plan. Lab Data Attestation: I reviewed the patient's lab results. Labs: Laboratory Results - last 24 hr 07/21/24 07/22/24 22:52 00:57 WBC 9.7 RBC 4.82 Hgb 13.3 Hct 41.2 MCV 85.5 MCH 27.6 MCHC 32.3 RDW Std Deviation 39.6 RDW Coeff of Eulalia 12.9 Plt Count 374 MPV 9.5 Immature Gran % (Auto) 0.100 Neut % (Auto) 44.7 L Lymph % (Auto) 46.6 H [place] % (Auto) 6.4 Eos % (Auto) 1.3 Baso % (Auto) 0.9 Absolute Neuts (auto) 4.3 Absolute Lymphs (auto) 4.51 Nucleated RBC % 0 D-Dimer Quant (PE/DVT) 0.27 Sodium 139 Potassium 4.0 Chloride 99 Carbon Dioxide 26.9 Anion Gap 13 BUN 9 Creatinine 0.88 Estim Creat Clear Calc 124.27 Est GFR (MDRD) Non-Af 80 BUN/Creatinine Ratio 9.9 L Glucose 131 H Calcium 9.6 Troponin T High Sens 7 Troponin T Hi Sens 2 Hr < 6 Radiography Diagnostic Testing: Clinical Impression(s) from Imaging Studies Chest X-Ray 07/21/24 23:45 IMPRESSION: No evidence of acute disease.. Reading Location: [facility] Rhythm Strip Rhythm Strip: Sinus Tach Rate: 120 Ectopy: None EKG Initial EKG: Attestation: I personally reviewed and interpreted this EKG as follows: Interpretation: No Acute Injury Pattern, Sinus Tachycardia (At 102) and Non-Specific ST Changes (1 and aVL) Comments: Normal axis. Normal intervals. Other than above, normal EKG Discharge Plan Triage Chief Complaint: Chest Pain ED Provider: Patrick Machuca Dx/Rx/DC Orders Clinical Impression: Chest heaviness Instructions: ED Chest Pain, Noncardiac Prescriptions: No Action SEA ELIZONDO GEL 1 tsp PO DAILY ashwagandha extract 120 mg capsule 120 mg PO DAILY pregabalin 75 mg capsule 75 mg PO BID metformin 500 mg tablet extended release 24 hr 500 mg PO BID Qty: 120 1RF lidocaine 4 % adhesive patch,medicated See Rx Instructions .ROUTE .COMPLEX Qty: 60 1RF Dose Instruction: remove old and apply 1 (ONE) new patch EVERY DAY NEEDED FOR PAIN Rx Instructions: remove old and apply 1 (ONE) new patch EVERY DAY NEEDED FOR PAIN amlodipine 10 mg tablet See Rx Instructions .ROUTE .COMPLEX Qty: 90 0RF Dose Instruction: TAKE 1 TABLET BY MOUTH EVERY DAY Rx Instructions: TAKE 1 TABLET BY MOUTH EVERY DAY hydrochlorothiazide 12.5 mg tablet See Rx Instructions .ROUTE .COMPLEX Qty: 90 0RF Dose Instruction: TAKE 1 TABLET BY MOUTH EVERY morning Rx Instructions: TAKE 1 TABLET BY MOUTH EVERY morning acetaminophen [Tylenol Extra Strength] 500 mg tablet 500 - 1,000 mg PO Q6H MDD 4,000mg PRN (Reason: pain) Qty: 60 0RF duloxetine [Cymbalta] 30 mg capsule,delayed release(DR/EC) 30 mg PO BID Qty: 60 0RF conjugated estrogens 0.9 mg tablet 0.9 mg PO DAILY Qty: 90 0RF levothyroxine 112 mcg tablet See Rx Instructions .ROUTE .COMPLEX Qty: 30 1RF Dose Instruction: TAKE 1 TABLET BY MOUTH EVERY DAY Rx Instructions: TAKE 1 TABLET BY MOUTH EVERY DAY Primary Care Provider: Shahzad Reynolds Referrals: Shahzad Reynolds MD [Primary Care Provider] - As soon as possible Print Language: Russian Disposition Disposition: Home, Self Care
[2024-07-21 23:00] LABS: Absolute Lymphocyte Count 4.51 X10^3/uL (0.83-4.51); Absolute Neutrophil Count 4.3 X10^3/uL (2.0-7.7); Basophil# 0.09 X10^3/uL; Basophil% 0.9 % (0-1); Eosinophil# 0.13 X10^3/uL; Eosinophils% 1.3 % (0-5); Hematocrit 41.2 % (37-47); Hemoglobin 13.3 g/dL (12.0-15.0); Lymphocyte # 4.51 X10^3/ul (0.83-4.51); Lymphocyte % 46.6 % (19-41); Mean Corp Hgb Conc 32.3 g/dL (32-36); Mean Corpuscular Hgb 27.6 pg (27.0-32.0); Mean Corpuscular Volume 85.5 fL (81-99); Mean Platelet Vol. 9.5 fl (6.2-12.0); Monocyte# 0.62 X10^3/uL; Monocyte% 6.4 % (0-10); NRBC Flagged by Analyzer 0 % (0-5); Neutrophil # 4.31 X10^3/uL (2.7-7.7); Neutrophil % 44.7 % (47-70); Platelet Count 374 K/mm3 (150-450); RBC Distribution Width CV 12.9 % (11.6-14.6); RBC Distribution Width SD 39.6 fl (35.1-43.9); Red Blood Count 4.82 M/mm3 (4.2-5.4); White Blood Count 9.7 K/mm3 (4.4-11.0)
[2024-07-21 23:14] LABS: D-Dimer Quantitative (DVT/PE) 0.27 FEU/ug/m (0.27-0.49)
[2024-07-21 23:17] LABS: Anion Gap 13 (5-15); BUN 9 mg/dL (4-19); BUN/Creat Ratio 9.9 RATIO (10-20); Calcium,Total 9.6 mg/dL (7.6-11.0); Carbon Dioxide 26.9 mmol/L (21.0-32.0); Chloride 99 mmol/L (98-108); Creatinine, Serum 0.88 mg/dL (0.70-1.20); EST Glomerular Filtration Rate 80 (>60); Estimated Creatinine Clearance 124.27 ml/min (50-250); Glucose 131 mg/dL (70-99); Sodium Level 139 mmol/L (133-145); Troponin T High Sensitivity 7 ng/L (<=14)
--- NOTE | 2024-07-21 23:45 | RAD_ITS ---
PROCEDURE: CHEST 1 VIEW (PORTABLE) REASON FOR EXAM: Chest pain TECHNIQUE: Frontal view of the chest. COMPARISON: 01/30/2024 FINDINGS: The lungs are clear. Pulmonary vascularity appears within limits. Cardiac and mediastinal contours appear within limits. Visualized osseous structures appear within limits. RAD/Chest 1 View (Portable) IMPRESSION: No evidence of acute disease.. Reading Location: [id number]
[2024-07-22 00:25] VITALS: BP 131/84; PULSE 81; RESP 20; O2SAT 97
[2024-07-22 01:49] LABS: Troponin T High Sens 2 HR < 6 ng/L (<=14)
[2024-07-22 02:07] VITALS: BP 121/73; PULSE 87; RESP 18; TEMP 36.3; O2SAT 97
== END 2024-07-22 02:13 | disposition home or self-care (01) ==
PROVIDERS: Emergency Provider Emergency Medicine; PCP Internal Medicine; Referring Provider Emergency Medicine; Visit Provider Emergency Medicine
DX: R07.89 Other chest pain (principal); R21 Rash and other nonspecific skin eruption; I10 Essential (primary) hypertension; Z86.718 Personal history of other venous thrombosis and embolism; F17.210 Nicotine dependence, cigarettes, uncomplicated; R20.2 Paresthesia of skin; R06.00 Dyspnea, unspecified; K59.00 Constipation, unspecified; E66.9 Obesity, unspecified
CPT/HCPCS: 71045; 80048; 84484; 85025; 85379; 93005; 99284; A4216

== ENCOUNTER → 2024-07-22 | Outpatient (CLI) | payer MEDICAID, SELFPAY ==
[2024-07-22 17:39] LABS: Thyroid Stim Hormone (TSH) 0.598 uIU/mL (0.300-4.200)
[2024-07-22 18:06] LABS: AST(SGOT) 14 U/L (<=31); Alanine Aminotransfer ALT/SGPT 15 U/L (<=34); Albumin, Serum 4.1 g/dL (3.5-5.0); Alkaline Phosphatase 99 U/L (35-104); Bilirubin, Direct 0.11 mg/dL (0.00-0.30); Protein, Total 7.1 g/dL (5.9-8.4); Total Bilirubin 0.21 mg/dL (0.00-1.30)
== END | disposition home or self-care (01) ==
LOC: BIMLAB 16:12
PROVIDERS: PCP Internal Medicine; Referring Provider Internal Medicine; Visit Provider Internal Medicine
DX: E03.9 Hypothyroidism, unspecified (principal); I10 Essential (primary) hypertension; B34.9 Viral infection, unspecified
CPT/HCPCS: 36415; 80076; 84439; 84443

== ENCOUNTER → 2024-08-22 | Outpatient (CLI) | payer MEDICAID, SELFPAY ==
[2024-08-24 15:08] LABS: H. PYLORI STOOL AG Positive (Negative)
== END | disposition home or self-care (01) ==
PROVIDERS: PCP Internal Medicine; Referring Provider Physician Assistant; Visit Provider Physician Assistant
DX: R19.5 Other fecal abnormalities (principal)
CPT/HCPCS: 87177; 87209; 87338

== ENCOUNTER 2024-10-11 13:37 | Outpatient (RCR) | payer MEDICAID, SELFPAY ==
--- NOTE | 2024-10-11 15:35 | HP.PTEVAL_ITS ---
Patient's Visit Information Visit Information Visit Information: BALJIT WYNN is a 54 year old F referred to Physical Therapy by Dr. Shahzad Reynolds MD with a diagnosis of Lumbar spondylolisthesis. Date of Evaluation: 10/11/24 Physical Therapist: Gato Mehta DPT Visit Plan Frequency: 2x /Week Duration: 4 Weeks Plan: IN aquatic setting: Core and hip strengthening, dynamic lumbar stability exercises. Deep hang Subjective Subjective: Pt. is here today for her initial evaluation with diagnosis of spondylolisthesis of lumbar region. Pt. reports having pain for 1-2 years with no mech of injury. Increased pain: walking and standing for greater than 10 minutes, lifting. Decreased pain: bending fwrd. Pt. reports minimal pain with sitting. Pt. denies N/T in either LE. Pt. reports no LE weakness as well. She repots not being able to complete desired activities due to higher levels of pain with walking over 10min. She does get injections and is planning to have injection in early october. Pain Lumbar spine: Pain Intensity (Out of 10): 1 Pain Intensity Range: 0 and 8 Objective Objective: POSTURE: pt. tends to be in a slight anterior pelvic tilt in stance. PALPATION: Pt. has mild tenderness along lumbar spine. + spring testing at L3- L5. NEURO: normal throughout. ROM: LUMBAR SPINE: flexion nil loss NE, ext mod/max loss increase NW, SB min loss bilatl increase NW, rotation min loss bilat increase NW. Pt. has normal HS length bilat. Tight in B hip flexors. MMT: Pt. has no myotomal weakness noted. poor core strength. B hip strength 4/5 throughout. GAIT: Pt. has a guarded posture with decreased step length and decreased arm swing. STAIRS: step to pattern with 2 HR. Balance/Special Test Scores Oswestry Low Back Score: 25 Goals Goal 1:: LTG: Pt. to be I with HEP. Goal Time Frame: 4-6 Weeks Goal 2:: LTG: pt. to have increased core and B hip strength by 1/2 grade throughout. Goal Time Frame: 4-6 Weeks Goal 3:: LTG: pt. to be able to walk for 30+ minutes Goal 4:: LTG: Pt. report no radicular symptoms. Goal Time Frame: 4-6 Weeks Rehabilitation Potential Physical Therapy Diagnosis: Pt. has signs and symptoms consistent with Lumbar spondylolisthesis. Pt. has marked core weakness and increased pain. Pt. would benefit from PT to address the above limitations progressing back to previous levels of function. Rehabilitation Potential: Good Anticipated Interventions Patient/Client Instruction: Educate patient on: Condition, Plan of Care, Risk Factors and Benefits of Fitness Program For the Purpose of:: To improve decision making, To facilitate caregiver knowledge, To improve self management, To prevent re-injury and To improve ability to perform tasks related to life management Therapeutic Exercise to Include: Strength training, Endurance training, Postural training, Flexibilty training and "In an aquatic setting" For the Purpose of:: To decrease pain, To increase ROM, To improve nutrient delivery to tissue, To increase oxygenation perfusion, To improve muscle performance and motor function, To improve ability to perform ADL's, To increase tolerance to activity/condition/position, To improve gait and locomotor funct ions, To improve health of tissue and To increase flexibility/ROM Text: Thank you for the opportunity to evaluate your patient. For Medicare and Medicare HMO plans, please review the plan of care and approve it. It will need to be FAXED BACK to us at [phone] for Medicare purposes. For Medicare only, by signing this I certify the plan of care. Please let me know if there are questions or concerns regarding this plan of care. Physician Signature: Date:
== END 2024-10-11 19:00 | disposition home or self-care (01) ==
LOC: PT 13:37
PROVIDERS: PCP Internal Medicine; Referring Provider Internal Medicine; Visit Provider Internal Medicine
DX: M43.16 Spondylolisthesis, lumbar region (principal)
CPT/HCPCS: 97161

== ENCOUNTER → 2024-10-11 | Outpatient (CLI) | payer MEDICAID, SELFPAY ==
--- NOTE | 2024-10-11 15:45 | BI_ITS ---
EXAM: SCRN MAMM (CAD)W/NATE BILAT DATE: 10/11/2024 CLINICAL HISTORY: F, Age 54 y/o , SCREENING BREAST CANCER RISK ASSESSMENT: Not reported TECHNIQUE: Bilateral screening digital breast tomosynthesis with 2D and 3D images. Computer aided detection. COMPARISON: Prior exam(s) were compared FINDINGS: TISSUE DENSITY: The breast tissue is heterogenously dense, which may obscure small masses. Bilateral Breast Mammographic Findings: No suspicious masses, calcifications or other abnormalities are identified. BI/SCRN MAMM (CAD)W/NATE BILAT IMPRESSION: OVERALL FINAL ASSESSMENT: BIRADS 1 NEGATIVE RECOMMENDATION: Routine annual follow-up in 1 Year A letter with findings and recommendations will be mailed to the patient. Reading Location: [id number]
== END | disposition home or self-care (01) ==
PROVIDERS: PCP Internal Medicine; Referring Provider Physician Assistant; Visit Provider Physician Assistant
DX: Z12.31 Encounter for screening mammogram for malignant neoplasm of breast (principal)
CPT/HCPCS: 77063; 77067

== ENCOUNTER → 2024-11-04 | Outpatient (CLI) | payer MEDICAID, SELFPAY ==
[2024-11-04 12:39] LABS: D-Dimer Quantitative (DVT/PE) 0.29 FEU/ug/m (0.27-0.49)
[2024-11-04 12:56] LABS: ALB/GLOB Ratio 1.3 RATIO (0.9-2.4); AST(SGOT) 17 U/L (<=31); Alanine Aminotransfer ALT/SGPT 10 U/L (<=34); Albumin, Serum 3.8 g/dL (3.5-5.0); Alkaline Phosphatase 113 U/L (35-104); Anion Gap 12 (5-15); BUN 8 mg/dL (4-19); BUN/Creat Ratio 11.2 RATIO (10-20); Carbon Dioxide 26.4 mmol/L (21.0-32.0); Chloride 100 mmol/L (98-108); Creatinine, Serum 0.72 mg/dL (0.70-1.20); EST Glomerular Filtration Rate 100 (>60); Glucose 145 mg/dL (70-99); Potassium 3.7 mmol/L (3.3-5.1); Pro- Brain NATRIURETIC PEPTIDE < 36 pg/mL (<=900); Protein, Total 6.9 g/dL (5.9-8.4); Sodium Level 138 mmol/L (133-145); Total Bilirubin < 0.15 mg/dL (0.00-1.30)
== END | disposition home or self-care (01) ==
LOC: BIMLAB 11:33
PROVIDERS: PCP Internal Medicine; Referring Provider Internal Medicine; Visit Provider Internal Medicine
DX: E03.9 Hypothyroidism, unspecified (principal); R06.00 Dyspnea, unspecified; R60.0 Localized edema
CPT/HCPCS: 36415; 80053; 83880; 84443; 85379

== ENCOUNTER → 2024-11-23 | Outpatient (CLI) | payer MEDICAID, SELFPAY ==
[2024-11-23 12:48] LABS: Hematocrit 41.0 % (37-47); Hemoglobin 13.2 g/dL (12.0-15.0); Immature Granulocytes Count 0.040 X10^3/uL (0.0-0.0); Mean Corp Hgb Conc 32.2 g/dL (32-36); Mean Corpuscular Volume 84.9 fL (81-99); Mean Platelet Vol. 10.8 fl (6.2-12.0); NRBC Flagged by Analyzer 0 % (0-5); POSITIVE DIFFERENTIAL YES; Platelet Count 367 K/mm3 (150-450); RBC Distribution Width CV 12.6 % (11.6-14.6); RBC Distribution Width SD 38.8 fl (35.1-43.9); Red Blood Count 4.83 M/mm3 (4.2-5.4); White Blood Count 13.1 K/mm3 (4.4-11.0)
[2024-11-23 12:49] LABS: Differential Indicated SCAN CRITERIA MET
== END | disposition home or self-care (01) ==
LOC: BIMLAB 10:28
PROVIDERS: PCP Internal Medicine; Referring Provider Internal Medicine; Visit Provider Internal Medicine
DX: E03.9 Hypothyroidism, unspecified (principal)
CPT/HCPCS: 36415; 84443; 85025

== ENCOUNTER 2024-12-26 14:16 | Emergency (ER) | payer MEDICAID, SELFPAY ==
[2024-12-26 14:17] VITALS: BP 157/83; PULSE 95; RESP 18; TEMP 36.5; O2SAT 97
--- NOTE | 2024-12-26 14:47 | EKG12_ITS ---
Test Reason : CP Blood Pressure : */* mmHG Vent. Rate : 89 BPM Atrial Rate : 89 BPM P-R Int : 178 ms QRS Dur : 78 ms QT Int : 370 ms P-R-T Axes : 42 -11 59 degrees QTcB Int : 450 ms Normal sinus rhythm Minimal voltage criteria for LVH, may be normal variant ( R in aVL ) Poor R-wave progression ; consider septal infarct, lead placement, or normal variant Abnormal ECG Confirmed by Kai Lucero ([id number]), supervising editor trailer BARBIE SUNG ([id number]) on 12/27/2024 11:41:49 AM Referred By: DEMARCO/RYDER Confirmed By: Kai Lucero
--- NOTE | 2024-12-26 14:47 | EKG12_ITS ---
Test Reason : CP Blood Pressure : */* mmHG Vent. Rate : 89 BPM Atrial Rate : 89 BPM P-R Int : 178 ms QRS Dur : 78 ms QT Int : 370 ms P-R-T Axes : 42 -11 59 degrees QTcB Int : 450 ms Normal sinus rhythm Minimal voltage criteria for LVH, may be normal variant ( R in aVL ) Poor R-wave progression ; consider septal infarct, lead placement, or normal variant Abnormal ECG Confirmed by Kai Lucero ([id number]), supervising film or videotape editor BARBIE SUNG ([id number]) on 12/27/2024 11:41:49 AM Referred By: DEMARCO/RYDER Confirmed By: Kai Lucero
[2024-12-26 14:49] VITALS: BP 139/79; PULSE 96; RESP 20; O2SAT 98
--- NOTE | 2024-12-26 14:55 | ED.VIS.CHEST ---
HPI History of Present Illness Chief Complaint: Chest Pain Narrative Narrative: Chief complaint and HPI: Left upper arm pain. 54-year-old female with past medical history of HTN, hypothyroidism, depression/anxiety, GERD with history of H. pylori presents for evaluation of left upper arm pain. Patient states for the past 4 months she has been having vague symptoms such as right ear fullness, sore throat, lightheadedness, shortness of breath. She states I do not know I just feel weird. States that she is seeing her physician as she is concerned there is a parasite in her body. She states she recently had tooth pain in which she was seen by her dentist and placed on antibiotics for possible tooth infection. Patient states since yesterday evening she has had pain in her left upper arm occasionally radiates into her chest. Describes it as sharp. Denies true chest pain. Denies any fever, chills, URI symptoms, abdominal pain, nausea, vomiting, dysuria. Review of systems: See HPI Medications: As listed on the chart Allergies: As listed on the chart PFSH: Per chart Vital signs: As listed on the chart. Reviewed. Physical exam: Gen: A&O x3, NAD Head: Normocephalic, atraumatic Eyes: No sclera icterus, conjunctiva clear, PERRL, EOMI ENT: TMs clear BL, moist mucous membranes, posterior oropharynx unremarkable, uvula midline, tonsils not enlarged, no tonsillar exudates, no Dontae angina, no obvious dental infection or abscess Neck: Trachea midline, No JVD, Full ROM, No meningismus, no lymphadenopathy CV: RRR, no murmurs, no peripheral edema, left chest wall tender to palpation in the anterior ribs where the ribs attach to the sternum-somewhat recreates her pain Resp: Lungs CTA BL, no w/r/c GI: Abd soft, non-distended, non-tender, no r/r/g Musc: Full ROM including the left upper extremity without any tenderness, no deformity, radial pulses +2 bilaterally Skin: Warm, dry, no rash Neuro: Alert, oriented, grossly intact, sensation intact Psych: Cooperative, intermittently tearful [facility] Medical History Fatigue Constipation Bloating Bilateral lower extremity edema Dyspnea Helicobacter pylori gastritis Dark stools Viral syndrome Nausea Malaise and fatigue Dermatitis Borderline type 2 diabetes mellitus Morbid obesity Tear of medial meniscus of right knee Left wrist pain Right knee pain Thyromegaly Ear discomfort Post-menopausal Alcohol use History of steroid therapy Thyroid disease Back pain History of pain when walking History of edema Normal stress echocardiogram History of echocardiogram Cardiology follow-up encounter Pre-op evaluation Prediabetes Generalized anxiety disorder Adjustment disorder Vitamin D deficiency Wears partial dentures Wears glasses Loose, teeth Substance abuse Marijuana use Depression Hypothyroid Arthritis Gastric reflux Smoker Upper respiratory infection Exposure to COVID-19 virus Suspected COVID-19 virus infection Hypersomnolence Chronic back pain Urticaria Anxiety Excessive somnolence disorder Hypertension Hypothyroidism (acquired) Abnormal EKG ADHD (attention deficit hyperactivity disorder) Labyrinthitis Vertigo Home Medications ?Medication ?Instructions ?Recorded ?Last Taken ?Type acetaminophen 500 mg tablet 500 - 1,000 mg (1 - 2 x 500 mg) PO 12/18/21 Unknown Rx (Tylenol Extra Strength) Q6H PRN pain #60 tabs amlodipine 10 mg tablet See Rx Instructions .Route 10/11/24 12/25/24 Rx .COMPLEX #90 tabs hydrochlorothiazide 12.5 mg tablet See Rx Instructions .Route 11/02/24 12/25/24 Rx .COMPLEX #90 tabs levothyroxine 125 mcg tablet See Rx Instructions .Route 11/23/24 12/26/24 Rx .COMPLEX #60 tabs conjugated estrogens 0.9 mg tablet 0.9 mg PO DAILY #90 tabs 11/30/24 12/25/24 Rx amoxicillin 500 mg-potassium 1 tab PO TID 12/23/24 12/26/24 History clavulanate 125 mg tablet fluticasone propionate 110 2 puff inhalation BID #12 grams 12/23/24 12/25/24 Rx mcg/actuation HFA aerosol inhaler prednisone 10 mg tablet 10 mg PO TID #15 tabs 12/23/24 Unknown Rx cyclobenzaprine 10 mg tablet 10 mg PO TID PRN 12/26/24 Unknown History duloxetine 60 mg capsule,delayed 60 mg PO BID 12/26/24 12/25/24 History release pregabalin 100 mg capsule 100 mg PO BID 12/26/24 12/25/24 History Allergy/AdvReac Type Severity Reaction Status Date / Time codeine Allergy Itching Verified 12/26/24 14:16 lisinopril Allergy Angioedema Verified 12/26/24 14:16 Family History Sister , of [place] CAD (coronary artery disease) Myocardial infarction Sudden cardiac Father Pancreatic cancer Surgical History Status post arthroscopic surgery of left knee Hx of tooth extraction Hx of wisdom tooth extraction History of bilateral carpal tunnel release History of appendectomy History of hysterectomy History of tubal ligation Social History Smoking Status: Current every day smoker tobacco type: cigarettes Tobacco: How many years used: 30 alcohol intake: current alcohol intake frequency: holidays/special occasions only substance use type: marijuana what type of physical activity do you participate in: none EXAM Physical Exam Const Vital Signs: 12/26/24 14:17 12/26/24 14:49 12/26/24 15:19 Temperature 97.7 F L Temperature Source Oral Pulse Rate 95 96 Respiratory Rate 18 20 H 20 H Blood Pressure 157/83 H 139/79 H 149/95 H Blood Pressure Mean 107 99 113 Pulse Ox 97 98 99 Oxygen Delivery Method Room Air 12/26/24 16:00 Temperature Temperature Source Pulse Rate 78 Respiratory Rate 18 Blood Pressure 154/86 H Blood Pressure Mean 108 Pulse Ox 98 Oxygen Delivery Method Room Air MDM MDM MDM Narrative Medical decision making narrative: 54-year-old female with past medical history of HTN, hypothyroidism, depression/anxiety, GERD with history of H. pylori presents for evaluation of left upper arm pain. Patient states for the past 4 months she has been having vague symptoms such as right ear fullness, sore throat, lightheadedness, shortness of breath. She states I do not know I just feel weird. States that she is seeing her physician as she is concerned there is a parasite in her body. States that she is currently here for her left upper arm pain that occasionally radiates into the chest. Describes it as sharp. On chart review, patient has history of drug abuse including cocaine, methamphetamine, cannabis. Differential diagnosis includes but is not limited to myofascial spasm, costochondritis, electrolyte abnormality, arrhythmia, substance abuse, suspect less likely ACS or PE. Aspirin given for pain. Cardiac workup ordered. CBC without leukocytosis or anemia. BMP unremarkable. Troponin unremarkable. Urine drug screen, delta troponin, D-dimer still pending. I was informed by nursing that patient refused delta troponin and would like to leave. I explained to the patient that I cannot officially rule out ACS or PE and less I perform a delta troponin and await the D-dimer. Patient then became angry and accused me of not caring for her. Her was in the room. I explained to her that this is not true and that is why I am asking her to wait for the workup to be completed. Patient insist that she would like to leave. I told her if she wishes to leave she needs to leave AGAINST MEDICAL ADVICE. She chose to leave AGAINST MEDICAL ADVICE. Although I do have low suspicion for ACS or PE, again I cannot rule this out with further labs. I personally explained to her that choosing to leave without a complete workup or before results have resulted may lead to permanent bodily harm or . I discussed at length that without further workup there may be unforeseen circumstances and deterioration. She is alert and oriented and can make her own decision. She states that she is aware of the serious risks as explained but continues to wish to leave AGAINST MEDICAL ADVICE. Given her decision, I did tell her the importance of following up with her primary care physician. I did advise her to return back to the ED immediately if she changes her mind at any time or if her condition begins to change or worsen. She left before I could provide discharge paperwork. EKG: Interpreted by me/EM physician: EKG shows normal sinus rhythm without any acute ischemic changes. Heart rate 89. This is similar to previous EKG in July 2024. Diagnostic: Interpreted by me/EM physician: Chest x-ray pneumonia, effusion, cardiomegaly, pneumothorax. Radiology in agreement. Impression: 1. Left arm pain that radiates into the chest 2. Concern for body parasite Lab Data Labs: Laboratory Results - last 24 hr 12/26/24 14:34 WBC 8.1 RBC 4.92 Hgb 13.4 Hct 40.8 MCV 82.9 MCH 27.2 MCHC 32.8 RDW Std Deviation 39.3 RDW Coeff of Eulalia 13.1 Plt Count 316 MPV 10.3 Immature Gran % (Auto) 0.200 Neut % (Auto) 35.7 L Lymph % (Auto) 50.1 H [place] % (Auto) 6.3 Eos % (Auto) 6.5 H Baso % (Auto) 1.2 H Absolute Neuts (auto) 2.9 Absolute Lymphs (auto) 4.07 Nucleated RBC % 0 Sodium 138 Potassium 3.6 Chloride 99 Carbon Dioxide 24.9 Anion Gap 14 BUN 9 Creatinine 0.70 Est GFR (MDRD) Non-Af 104 BUN/Creatinine Ratio 12.4 Glucose 123 H Calcium 9.7 Troponin T High Sens 6 D Radiography Diagnostic Testing: Clinical Impression(s) from Imaging Studies Chest X-Ray 12/26/24 15:05 IMPRESSION: NO ACUTE FINDINGS. Reading Location: [place] [id number] Discharge Plan Triage Chief Complaint: Chest Pain ED Provider: Gabriel Stoll Dx/Rx/DC Orders Prescriptions: No Action amoxicillin-pot clavulanate 500-125 mg tablet 1 tab PO TID prednisone 10 mg tablet 10 mg PO TID Qty: 15 0RF Patient Comments: HAS NOT STARTED fluticasone propionate 110 mcg/actuation HFA aerosol inhaler 2 puff inhalation BID Qty: 12 0RF cyclobenzaprine 10 mg tablet 10 mg PO TID PRN duloxetine 60 mg capsule,delayed release(DR/EC) 60 mg PO BID pregabalin 100 mg capsule 100 mg PO BID acetaminophen [Tylenol Extra Strength] 500 mg tablet 500 - 1,000 mg PO Q6H MDD 4,000mg PRN (Reason: pain) Qty: 60 0RF amlodipine 10 mg tablet See Rx Instructions .ROUTE .COMPLEX Qty: 90 0RF Dose Instruction: TAKE 1 TABLET BY MOUTH EVERY DAY Rx Instructions: TAKE 1 TABLET BY MOUTH EVERY DAY hydrochlorothiazide 12.5 mg tablet See Rx Instructions .ROUTE .COMPLEX Qty: 90 0RF Dose Instruction: TAKE 1 TABLET BY MOUTH EVERY morning Rx Instructions: TAKE 1 TABLET BY MOUTH EVERY morning levothyroxine 125 mcg tablet See Rx Instructions .ROUTE .COMPLEX Qty: 60 1RF Dose Instruction: TAKE 1 TABLET BY MOUTH EVERY DAY Rx Instructions: TAKE 1 TABLET BY MOUTH EVERY DAY conjugated estrogens 0.9 mg tablet 0.9 mg PO DAILY Qty: 90 0RF Primary Care Provider: Shahzad Reynolds Referrals: Shahzad Reynolds MD [Primary Care Provider] - Print Language: Portuguese
--- NOTE | 2024-12-26 15:05 | RAD_ITS ---
PROCEDURE: CHEST PA AND LATERAL 12/26/2024 REASON FOR EXAM: CHEST PAIN TECHNIQUE: CHEST PA AND LATERAL COMPARISON: Prior study dated July 21, 2024. FINDINGS: Hardware: EKG electrodes are seen. Heart: The heart size is normal. Mediastinum: The mediastinal contour is unremarkable. Lungs: The lungs are clear. Bones: Degenerative changes are identified within the thoracic spine. RAD/Chest PA and Lateral IMPRESSION: NO ACUTE FINDINGS. Reading Location: [place] [id number]
--- NOTE | 2024-12-26 15:05 | RAD_ITS ---
PROCEDURE: CHEST PA AND LATERAL 12/26/2024 REASON FOR EXAM: CHEST PAIN TECHNIQUE: CHEST PA AND LATERAL COMPARISON: Prior study dated July 21, 2024. FINDINGS: Hardware: EKG electrodes are seen. Heart: The heart size is normal. Mediastinum: The mediastinal contour is unremarkable. Lungs: The lungs are clear. Bones: Degenerative changes are identified within the thoracic spine. RAD/Chest PA and Lateral IMPRESSION: NO ACUTE FINDINGS. Reading Location: [place] [id number]
[2024-12-26 15:19] VITALS: BP 149/95; RESP 20; O2SAT 99
[2024-12-26 15:19] LABS: Hematocrit 40.8 % (37-47); Hemoglobin 13.4 g/dL (12.0-15.0); Immature Granulocytes Count 0.020 X10^3/uL (0.0-0.0); Mean Corp Hgb Conc 32.8 g/dL (32-36); Mean Corpuscular Volume 82.9 fL (81-99); Mean Platelet Vol. 10.3 fl (6.2-12.0); NRBC Flagged by Analyzer 0 % (0-5); Platelet Count 316 K/mm3 (150-450); RBC Distribution Width CV 13.1 % (11.6-14.6); RBC Distribution Width SD 39.3 fl (35.1-43.9); Red Blood Count 4.92 M/mm3 (4.2-5.4); White Blood Count 8.1 K/mm3 (4.4-11.0)
[2024-12-26 15:31] LABS: Anion Gap 14 (5-15); BUN 9 mg/dL (4-19); BUN/Creat Ratio 12.4 RATIO (10-20); Calcium,Total 9.7 mg/dL (7.6-11.0); Carbon Dioxide 24.9 mmol/L (21.0-32.0); Chloride 99 mmol/L (98-108); Glucose 123 mg/dL (70-99); Potassium 3.6 mmol/L (3.3-5.1); Troponin T High Sensitivity 6 ng/L (<=14)
[2024-12-26 16:00] VITALS: BP 154/86; PULSE 78; RESP 18; O2SAT 98
[2024-12-26 16:57] VITALS: BP 154/86; PULSE 78; RESP 18; TEMP 36.5; O2SAT 98
--- NOTE | 2024-12-26 17:07 | ED.RN ---
This RN witnessed ED MD explaining the risks of signing out AMA. Pt voices understanding stating, if something bad is wrong I'll just deal with it. Pt signed AMA paper. This RN removed IV, pt ambulated out of dept without difficulty.
[2024-12-26 17:15] LABS: Barbiturate Urine NEGATIVE (< 200 ng/mL); Benzodiazepine Urine NEGATIVE (< 200 ng/mL); PCP Urine NEGATIVE (< 25 ng/mL); THC Urine PRESUMPTIVE POSITIVE (< 50 ng/mL)
[2024-12-26 17:52] LABS: D-Dimer Quantitative (DVT/PE) 0.27 FEU/ug/m (0.27-0.49)
== END 2024-12-26 17:09 | disposition left against medical advice (07) ==
LOC: ED 14:57
PROVIDERS: Emergency Provider Surgery; PCP Internal Medicine; Visit Provider Surgery
DX: M79.622 Pain in left upper arm (principal); F41.9 Anxiety disorder, unspecified; I10 Essential (primary) hypertension; F17.210 Nicotine dependence, cigarettes, uncomplicated; Z79.899 Other long term (current) drug therapy; Z53.29 Procedure and treatment not carried out because of patient's decision for other reasons
CPT/HCPCS: 71046; 80048; 80307; 84484; 85025; 85379; 93005; 99284; A4216

== ENCOUNTER 2025-01-19 06:14 | Emergency (ER) | payer MEDICAID, SELFPAY ==
[2025-01-19 06:16] VITALS: BP 148/79; PULSE 90; RESP 16; TEMP 36.4; O2SAT 100; BMI 48.3
--- NOTE | 2025-01-19 06:27 | EX.ED.UPPERE ---
HPI History of Present Illness HPI Narrative: 55-year-old female [id number]. History of hypertension and hypothyroid disease. Denies any recent trauma or injury to her arm. States she had burning discomfort which started 30 minutes ago this morning. No prior history. Denies any prior surgery to her right upper extremity except she did have carpal tunnel surgery years ago. Denies any other complaints. Chief Complaint: Upper Extremity Injury Informant: patient Occured/Mechanism Mechanism/Context: No injury and No blunt trauma Onset/Context/Timing Onset: Today and Hours (About 30 minutes ago.) Context: Gradual Onset Timing: Continuous Quality of Pain: Burning Current Severity: Mild Maximum Severity: Mild Associated Symptoms Associated Symptoms: Negative for Parasthesia, Weakness or Loss of Funtion Narrative Narrative: 55-year-old female complaining of burning to her right forearm and started 30 minutes ago. Denies any fall injury or trauma. Prior carpal tunnel to this hand years ago. She is right-hand dominant. Denies any other complaints. She has not been ill. No fever or chills. No discolor of the skin. Prior similar symptoms: No Recent Illness/Hospitalization: No PFSH PFSH Medical History Fatigue Constipation Bloating Bilateral lower extremity edema Dyspnea Helicobacter pylori gastritis Dark stools Viral syndrome Nausea Malaise and fatigue Dermatitis Borderline type 2 diabetes mellitus Morbid obesity Tear of medial meniscus of right knee Left wrist pain Right knee pain Thyromegaly Ear discomfort Post-menopausal Alcohol use History of steroid therapy Thyroid disease Back pain History of pain when walking History of edema Normal stress echocardiogram History of echocardiogram Cardiology follow-up encounter Pre-op evaluation Prediabetes Generalized anxiety disorder Adjustment disorder Vitamin D deficiency Wears partial dentures Wears glasses Loose, teeth Substance abuse Marijuana use Depression Hypothyroid Arthritis Gastric reflux Smoker Upper respiratory infection Exposure to COVID-19 virus Suspected COVID-19 virus infection Hypersomnolence Chronic back pain Urticaria Anxiety Excessive somnolence disorder Hypertension Hypothyroidism (acquired) Abnormal EKG ADHD (attention deficit hyperactivity disorder) Labyrinthitis Vertigo Home Medications ?Medication ?Instructions ?Recorded ?Last Taken ?Type acetaminophen 500 mg tablet 500 - 1,000 mg (1 - 2 x 500 mg) PO 12/18/21 Unknown Rx (Tylenol Extra Strength) Q6H PRN pain #60 tabs amlodipine 10 mg tablet See Rx Instructions .Route 10/11/24 12/25/24 Rx .COMPLEX #90 tabs levothyroxine 125 mcg tablet See Rx Instructions .Route 11/23/24 12/26/24 Rx .COMPLEX #60 tabs conjugated estrogens 0.9 mg tablet 0.9 mg PO DAILY #90 tabs 11/30/24 12/25/24 Rx cyclobenzaprine 10 mg tablet 10 mg PO TID PRN 12/26/24 Unknown History duloxetine 60 mg capsule,delayed 60 mg PO BID 12/26/24 12/25/24 History release pregabalin 100 mg capsule 100 mg PO BID 12/26/24 12/25/24 History hydrochlorothiazide 12.5 mg tablet See Rx Instructions .Route 01/17/25 Unknown Rx .COMPLEX #90 tabs Allergy/AdvReac Type Severity Reaction Status Date / Time codeine Allergy Itching Verified 01/19/25 06:15 lisinopril Allergy Angioedema Verified 01/19/25 06:15 Family History Sister , of [place] CAD (coronary artery disease) Myocardial infarction Sudden cardiac Father Pancreatic cancer Surgical History Status post arthroscopic surgery of left knee Hx of tooth extraction Hx of wisdom tooth extraction History of bilateral carpal tunnel release History of appendectomy History of hysterectomy History of tubal ligation Social History Smoking Status: Current every day smoker tobacco type: cigarettes Tobacco: How many years used: 30 alcohol intake: current alcohol intake frequency: holidays/special occasions only substance use type: marijuana what type of physical activity do you participate in: none ROS ROS ED ROS Narrative Denies recent illness. Constitutional Constitutional ED: Denies chills or fever(s) Eyes Eyes: Denies blurry vision ENT ENT ED: Denies ear pain Cardiovascular Cardiovascular: Denies chest pain Respiratory/Chest Respiratory/Chest: Denies cough Gastrointestinal Gastrointestinal: Denies abdominal pain Genitourinary Genitourinary ED: Denies dysuria or hematuria Musculoskeletal Musculoskeletal: Denies back pain Integumentary Denies abscess Neurologic Neurologic: Denies headache(s) Psychiatric Psychiatric: Denies anxiety or depression Endocrine Endocrinology: Denies cold intolerance or heat intolerance Hematologic/Lymphatic Hematologic/Lymphatic: Denies easy bleeding or easy bruising Allergic/Immunologic Allergic/Immunologic ED: Denies mouth swelling, tongue swelling or urticaria EXAM Physical Exam Narrative Exam Narrative: Well-appearing middle-aged female. Vital signs are stable and afebrile. No distress. H EENT exam pupils round reactive light. Moist mucous membranes. Neck nontender. No lymphadenopathy. Lungs clear to auscultation bilaterally. Heart regular rhythm rate about 90 no murmur. Chest wall ribs nontender. Abdomen soft and nontender. Back nontender. Patient is moving all 4 extremities. Her normal in appearance. She has 5 out of 5 equal symmetrical surgery scheduler strength. Strong radial pulses bilaterally. Normal flexion extension all digits of both hands. Flexion extension of both the wrist and flexion-extension of both elbows. She can raise either arm overhead. There is no redness or cellulitis. The arm is nontender. There is no signs of trauma. There is no axillary lymphadenopathy. It is a normal extremity exam without any signs of infection. Neurologically she is awake and alert. Answering questions following commands. Const Vital Signs: 01/19/25 06:16 Temperature 97.6 F L Temperature Source Oral Pulse Rate 90 Respiratory Rate 16 Blood Pressure 148/79 H Blood Pressure Mean 102 Pulse Ox 100 Oxygen Delivery Method Room Air Positive well nourished and well developed; Negative for cachectic, contractures or unkempt General Appearance ED: well developed and NAD; Negative for unkempt, cachectic, contractures, cyanotic or diaphoretic Nutritional Appearance: Negative for cachectic HEENT Reports moist mucous membranes normocephalic and atraumatic Eyes PERRL and EOMs intact bilaterally Neck full ROM and supple Chest Wall inspection of chest normal and palpation of chest normal Resp normal respiratory effort and clear to auscultation bilaterally Cardio regular rate, regular rhythm, S1 normal heart sound, S2 normal heart sound and no murmurs GI non-tender, non-distended and no masses Auscultation: normoactive bowel sounds Palpation: soft; Negative for tender, guarding or rebound tenderness present Back/Spine no CVA tenderness Extremity normal to inspection and full ROM Extremity Narrative: Right upper arm and forearm appear normal. She is normal surgery scheduler strength 5 out of 5. Strong radial pulse. Full flexion extension of the wrist elbow and shoulder. She can raise her arm overhead. There is no lymphadenopathy. There is no redness or warmth of the forearm or upper arm. No lymphangitic streaking. No signs of trauma. No bruising or swelling. Joints are nontender. She has a normal exam of the right arm. Normal sensation and strength. Neuro oriented x3, CN's II-XII intact bilaterally, moves all extremities, no focal motor deficits and no sensory deficits noted Sensorium / Orientation: alert, oriented to person, oriented to place and oriented to time Motor Exam: strength 5/5 throughout Psych mental status grossly normal Appearance: Negative for unkempt Skin Lesions: no lesions Rashes: no rashes Trauma: no lacerations or abrasions MDM MDM MDM Narrative Medical decision making narrative: 55-year-old female presents with burning sensation in her right forearm. She has a normal exam. No history of trauma. Normal vital signs. No fever. No signs of infection. To be discharged home with outpatient follow-up as needed. She does not need any labs or imaging. Discharge Plan Triage Chief Complaint: Upper Extremity Injury ED Provider: Jean-Claude Baker Dx/Rx/DC Orders Clinical Impression: Forearm pain, History of hypertension Prescriptions: No Action cyclobenzaprine 10 mg tablet 10 mg PO TID PRN duloxetine 60 mg capsule,delayed release(DR/EC) 60 mg PO BID pregabalin 100 mg capsule 100 mg PO BID acetaminophen [Tylenol Extra Strength] 500 mg tablet 500 - 1,000 mg PO Q6H MDD 4,000mg PRN (Reason: pain) Qty: 60 0RF amlodipine 10 mg tablet See Rx Instructions .ROUTE .COMPLEX Qty: 90 0RF Dose Instruction: TAKE 1 TABLET BY MOUTH EVERY DAY Rx Instructions: TAKE 1 TABLET BY MOUTH EVERY DAY levothyroxine 125 mcg tablet See Rx Instructions .ROUTE .COMPLEX Qty: 60 1RF Dose Instruction: TAKE 1 TABLET BY MOUTH EVERY DAY Rx Instructions: TAKE 1 TABLET BY MOUTH EVERY DAY conjugated estrogens 0.9 mg tablet 0.9 mg PO DAILY Qty: 90 0RF hydrochlorothiazide 12.5 mg tablet See Rx Instructions .ROUTE .COMPLEX Qty: 90 0RF Dose Instruction: TAKE 1 TABLET BY MOUTH EVERY morning Rx Instructions: TAKE 1 TABLET BY MOUTH EVERY morning Primary Care Provider: Shahzad Reynolds Referrals: Shahzad Reynolds MD [Primary Care Provider] - 1 Week if not improving Activity Restrictions/Additional Instructions: Your forearm looks good. Currently you have a normal exam. There is no signs of infection or trauma. You have a good pulse and blood flow. You have good strength and sensation. Follow-up with your doctor or return if sudden changes but this time you do not need any labs, x-ray or other testing. Print Language: Bahamian Disposition Disposition: Home, Self Care
[2025-01-19 06:35] VITALS: BP 142/60; PULSE 86; RESP 16; TEMP 36.4; O2SAT 99
--- OUTSIDE RECORDS SUMMARY | 2025-01-19 06:37 | XMS RPT_ITS | CCD ---
Author Organization [facility] Care Team Providers Care [place] Tender Name Role Phone Siobhan Lopez Attending Unavailab le Julia Schumacher Attending Unavailable Siobhan Lopez Referring Unavailab le UNKNOWN, PCP Primary Care Unavailable Siobhan Lopez Attending Unavailab le UNKNOWN, PCP Referring Unavailable UNKNOWN, PCP Primary Care Unavailable JessicaSiobhan del valle Attending Unavailab le UNKNOWN, PCP Primary Care Unavailable JessicaSiobhan del valle Attending Unavailab le *SELF, REFERRED Referring Unavailable UNKNOWN, PCP Primary Care Unavailable Carmine Pisano Attending Unavailable Siobhan Lopez Referring Unavailab le UNKNOWN, PCP Primary Care Unavailable Siobhan Lopez Attending Unavailab le UNKNOWN, PCP Primary Care Unavailable CARMENCITA REBOLLEDO Attending Unavailable Siobhan Lopez Referring Unavailab le UNKNOWN, PCP Primary Care Unavailable JessicaSiobhan del valle Attending Unavailab le *SELF, REFERRED Referring Unavailable UNKNOWN, PCP Primary Care Unavailable SELF, SELF Referring Unavailable LAURA OLGUIN Attending Unavailable Erika Reynolds MD Primary Care Provider [phone] Dr. Erika Reynolds Primary Care Provider [phone] Dr. Erika Reynolds Referring Provider [phone] Dr. Simone Ornelas Attending Provider [phone] Dr. Simone Ornelas Other Provider TARYN Redman Attending Provider Jay HAND STEMMER, HAND STEMMER-C Joseph Attending Provider [phone] Gail CHAVEZ Efewongbe B Primary Care Provider OLEGHE, EFEWONGBE B Primary Care Unavailable STACIE JAIN Referring Unavailable OLEGHE, EFEWONGBE B Primary Care Unavailable OLEGHE, EFEWONGBE B Primary Care Unavailable OLEGHE, EFEWONGBE B Primary Care Unavailable ALVARADO DURAN Attending Unavailable OLEGHE, EFEWONGBE B Primary Care Unavailable FERNANDO GÓMEZ Attending Unavailable OLEGHE, EFEWONGBE B Primary Care Unavailable Oleghe, Efewongbe Primary Care Unavailable Patrick Machuca Attending Unavailable Oleghe, Efewongbe Primary Care Unavailable Marcos Whitmore Attending Unavailable Oleghe, Efewongbe Primary Care Unavailable Patrick Machuca Referring Unavailable Patrick Machuca Attending Unavailable Oleghe, Efewongbe Attending Unavailable Oleghe, Efewongbe Primary Care Unavailable Oleghe, Efewongbe Referring Unavailable Oleghe, Efewongbe Primary Care Unavailable Danial Mueller Attending Unavailable Oleghe, Efewongbe Referring Unavailable Oleghe, Efewongbe Primary Care Unavailable Danial Mueller Attending Unavailable Oleghe, Efewongbe Primary Care Unavailable Danial Mueller Attending Unavailable Oleghe, Efewongbe Referring Unavailable Oleghe, Efewongbe Primary Care Unavailable Danial Mueller Referring Unavailable Danial Mueller Attending Unavailable Oleghe, Efewongbe Attending Unavailable Oleghe, Efewongbe Referring Unavailable Oleghe, Efewongbe Primary Care Unavailable Oleghe, Efewongbe Referring Unavailable Oleghe, Efewongbe Attending Unavailable Oleghe, Efewongbe Primary Care Unavailable Oleghe, Efewongbe Referring Unavailable Oleghe, Efewongbe Attending Unavailable Oleghe, Efewongbe Primary Care Unavailable Oleghe, Efewongbe Referring Unavailable Oleghe, Efewongbe Primary Care Unavailable Oleghe, Efewongbe Attending Unavailable Gabriel Stoll Attending Unavailabl e Oleghe, Efewongbe Primary Care Unavailable Oleghe, Efewongbe Referring Unavailable Oleghe, Efewongbe Primary Care Unavailable Oleghe, Efewongbe Attending Unavailable Oleghe, Efewongbe Referring Unavailable Oleghe, Efewongbe Primary Care Unavailable aDnial Mueller Attending Unavailable Oleghe, Efewongbe Referring Unavailable Oleghe, Efewongbe Attending Unavailable Oleghe, Efewongbe Primary Care Unavailable Oleghe, Efewongbe Referring Unavailable Oleghe, Efewongbe Primary Care Unavailable Karol Early Attending Unavailable Oleghe, Efewongbe Primary Care Unavailable Danial Mueller Referring Unavailable Danial Mueller Attending Unavailable KaelaAlexa Referring Unavailable KaelaGilmaryn Attending Unavailable Oleghe, Efewongbe Primary Care Unavailable Oleghe, Efewongbe Primary Care Unavailable Danial Mueller Attending Unavailable Danial Mueller Referring Unavailable Oleghe, Efewongbe Attending Unavailable Oleghe, Efewongbe Referring Unavailable Oleghe, Efewongbe Primary Care Unavailable Oleghe, Efewongbe Referring Unavailable Kaela Alexa Attending Unavailable Oleghe, Efewongbe Primary Care Unavailable Oleghe, Efewongbe Referring Unavailable Oleghe, Efewongbe Primary Care Unavailable Oleghe, Efewongbe Attending Unavailable Oleghe, Efewongbe Attending Unavailable Oleghe, Efewongbe Referring Unavailable Oleghe, Efewongbe Primary Care Unavailable Dandy Redman Attending Unavailable Oleghe, Efewongbe Primary Care Unavailable Oleghe, Efewongbe Referring Unavailable Oleghe, Efewongbe Primary Care Unavailable Vishal Strauss Attending Unavailable Oleghe, Efewongbe Attending Unavailable Oleghe, Efewongbe Referring Unavailable Oleghe, Efewongbe Primary Care Unavailable Oleghe, Efewongbe Referring Unavailable Oleghe, Efewongbe Attending Unavailable Oleghe, Efewongbe Primary Care Unavailable Allergies Allergy Classification Reported Allergen(s) Allergy Type Date of Onset Reaction(s) Facility (10 sources) Codeine; Translations: [CODEINE] Drug Allergy 0 Itching [facility] Work Phone: (10 sources) Lisinopril; Translations: [LISINOPRIL] Drug Allergy 3 Anaphylaxis, Angioedema [facility] Work Phone: (1 source) Codeine Drug Allergy 5 [facility] (1 source) Lisinopril Drug Allergy 5 [facility] Medications Current Medications Medication Drug Class(es) Dates Sig (Normalized) Sig (Original) acetaminophen 500 mg oral tablet (2 sources) Start: 07-18-2021 End: 12-18-2021 take 500-1000 mg by mouth every six hours Acetaminophen (Tylenol Extra Strength) 500 mg tablet Active 500 - 1000 MG PO EVERY 6 HOURS 60 December 18, 2021 11:13am [id number] 200 actuat albuterol 0.09 mg/actuat metered dose inhaler (7 sources) beta2-Adrenergic Agonist Start: 05-16-2024 take 2 puff(s) by inhalation every four hours as needed for wheezing albuterol HFA (PROVENTIL HFA, VENTOLIN HFA) 90 mcg/actuation inhaler Indications: Wheezing Inhale 2 Puffs as instructed every 4 hours as needed for wheezing/shortness of breath. 1 Each 05/16/2024 Active amitriptyline hydrochloride 10 mg oral tablet (8 sources) Tricyclic Antidepressant Start: 02-15-2020 take 1 tablet by mouth once daily at bedtime amitriptyline (ELAVIL) 10 mg tablet Take 1 tablet by mouth daily at bedtime. 30 tablet 5 02/15/2020 Active Comment on above: Take 1 tablet by savanna th daily at bedtime. amLODIPine 10 mg oral tablet (12 sources) Dihydropyridine Calcium Channel Miriam Start: 02-15-2020 End: 12-18-2021 take 1 tablet by mouth once daily amLODIPine (NORVASC) 10 mg tablet Take 1 tablet by mouth once daily. 30 tablet 5 02/15/2020 Active Start: 03-30-2013 End: 09-08-2017 Norvasc Discontinued DAILY N ovember 2012 1:00am September 08, 2017 1:31pm Comment on above: Take 1 tablet by savanna th once daily. amoxicillin 875 mg oral tablet (2 sources) Penicillin-class Antibacterial Start: 5 End: 5 take 1 tablet by mouth twice daily amoxicillin (AMOXIL) 875 mg tablet Indications: Pain, dental Take 1 tablet by mouth two times a day for 5 days. 10 tablet 06/17/2024 06/22/2024 Active Start: 05-16-2024 End: 05-23-2024 take 1 tablet by mouth twice daily amoxicillin (AMOXIL) 875 mg tablet Take 1 tablet by mouth two times a day for 7 days. 14 tablet 05/16/2024 05/23/2024 Active amoxicillin 875 mg / clavulanate 125 mg oral tablet (2 sources) Penicillin-class Antibacterial Start: 09-10-2021 End: 09-20-2021 take 1 tablet by mouth twice daily amoxicillin-clavulanic acid (AUGMENTIN) 875-125 mg per tablet Indications: Toothache Take 1 tablet by mouth twice daily for 10 days. 20 tablet 0 09/10/2021 09/20/2021 Active Start: 08-28-2020 End: 10-02-2020 take 1 tablet by mouth every twelve hours Amoxicillin-Pot Clavulanate Discontinued 1 TABLET PO Q12H August 28, 2020 12:00am October 02, 2020 9:47am Comment on above: Take 1 tablet by savanna th twice daily for 10 days. apple cider vinegar 600 mg oral capsule (1 source) Start: 02-11-2022 Apple Cider Vinegar Active MG PO February 11, 2022 12:00am Blood Pressure Monitor (BLOOD PRESSURE KIT) (8 sources) Start: 02-15-2020 Blood Pressure Monitor (BLOOD PRESSURE KIT) Dx: HTN, labile blood pressures 1 Each 02/15/2020 Active Start: 02-15-2020 Blood Pressure Monitor (BLOOD PRESSURE KIT) Dx: HTN, labile blood pressures 1 Each 0 02/15/2020 Active Comment on above: Dx: HTN, labile bloo d pressures calcium polycarbophil 625 mg oral tablet (1 source) Start: 02-12-20 22 Calcium Polycarbophil (Fibercon) 625 mg tablet Active 1250 MG PO DAILY February 11, 2022 12:00am cyclobenzaprine hydrochloride 10 mg oral tablet (5 sources) Muscle Relaxant Start: 11-17-19 take 1 tablet by mouth every eight hours as needed cyclobenzaprine (FLEXERIL) 10 mg tablet Take 10 mg by mouth three times a day as needed. 11/16/2024 Active Start: 05-19-2015 End: 09-08-2017 take 10 mg by mouth three times daily Cyclobenzaprine Discontinued 10 MG PO THREE TIMES A DAY May 19, 2015 1:00am September 08, 2017 1:30pm DULoxetine 60 mg delayed release oral capsule (11 sources) Serotonin and Norepinephrine Reuptake Inhibitor Start: 03-14-2024 take 1 capsule by mouth every twelve hours DULoxetine (CYMBALTA) 60 mg capsule Take 1 capsule by mouth every 12 hours. 03/14/2024 Active Start: 06-11-2021 End: 12-18-2021 take 1 capsule by mouth twice daily Duloxetine (Cymbalta) 30 mg capsule,delayed release(DR/EC) Active 30 MG PO TWICE A DAY 60 December 18, 2021 11:13am Start: 08-28-2020 End: 06-11-2021 Duloxetine Discontinued 30 M G PO TWICE A DAY 120 August 28, 2020 12:00am June 11, 2021 9:25am Take 30 mg QHS x 1 week then increase to BID ergocalciferol 1.25 mg oral capsule (1 source) Provitamin D2 Compound Start: 02-12-2022 take 11970 [IU] by mouth every week Ergocalciferol (Vitamin D2) Active 14839 UNIT PO EVERY WEEK February 12, 2022 12:00am estrogens, conjugated (assisted) 0.9 mg oral tablet (15 sources) Estrogen Start: 11-30-2024 PREMARIN 0.9 mg tablet 11/30/2024 Active Start: 04-23-2014 End: 10-30-2021 take 1 tablet by mouth once daily estrogens conjugated (PREMARIN) 1.25 mg tablet Take 1 tablet by mouth once daily. 30 tablet 5 02/15/2020 Active Comment on above: Take 1 tablet by savanna once daily. fluconazole 150 mg oral tablet (4 sources) Azole Antifungal Start: 12-25-2024 End: 12-25-2024 fluconazole (DIFLUCAN) 150 mg tablet Take 1 tablet by mouth one time only for 1 dose. If no resolution of symptoms in 72 hours can take another dose. 3 tablet 12/25/2024 12/25/2024 Discontinued Start: 09-10-2021 End: 09-11-2021 take 1 tablet by mouth once daily fluconazole (DIFLUCAN) 150 mg tablet Indications: Feared condition not demonstrated Take 1 tablet by mouth once daily for 1 day. 1 tablet 0 09/10/2021 09/11/2021 Active Start: 09-04-2020 End: 10-02-2020 Fluconazole Discontinued 150 MG PO Q3D 2 0 September 04, 2020 12:00am October 02, 2020 9:47am Comment on above: Take 1 tablet by savanna once daily for 1 day. folic acid 1 mg / vitamin b12 0.5 mg oral tablet (8 sources) Vitamin B12 Vitamin X20-Cpld c Acid 0.5-1 mg tab Take by mouth. Active Comment on above: Take by mouth. hydroCHLOROthiazide 12.5 mg oral tablet (12 sources) Thiazide Diuretic Start: 2020 End: 2021 take 12.5 mg by mouth once daily in the morning Hydrochlorothiazide Active 12.5 MG PO EVERY MORNING February 11, 2022 2:00pm Start: 02-15-2020 take 1 capsule by mo [facility] once daily Hydrochlorothiazide 12.5 mg capsule Take 1 capsule by mouth once daily. 30 capsule 5 02/15/2020 Active Comment on above: Take 1 capsule by mo [facility] once daily. levothyroxine sodium 0.112 mg oral tablet (18 sources) l-Thyroxine Start: take 112 ug by mouth once daily Levothyroxine Active 112 MCG PO DAILY February 12, 2022 8:11am Start: 04-03-2020 take 1 tablet by savanna once daily for thyroid dysfunction levothyroxine (LEVOXYL) 150 mcg tablet Take 1 tablet by mouth once daily. Take on empty stomach. For thyroid. 30 tablet 3 04/03/2020 Active Start: 04-24-2019 End: 02-12-2022 take 100 ug by mouth once daily Levothyroxine Disconti nued 100 MCG PO DAILY December 18, 2021 11:13am February 12, 2022 8:12am Start: 05-19-2015 End: 09-08-2017 take 1 ug by mouth once daily Levothyroxine Discontinu ed MCG PO DAILY May 19, 2015 1:00am September 08, 2017 1:30pm take 1 tablet by mouth once [place] levothyroxine (SYNTHROID) 125 mcg tablet Take 125 mcg by mouth once daily. Active Comment on above: Take 1 tablet by savanna once daily. Take on empty stomach. For thyroid. methylPREDNISolone 4 mg oral tablet (4 sources) Corticosteroid Start: 2024 methylPREDNISolone (MEDROL DOSE-PACK) 4 mg Dose-Pack Take by mouth as directed. Per package instructions 11/16/2024 Active potassium chloride 20 meq extended release oral tablet (4 sources) Start: 2021 End: 2021 take 40 mEq by mouth once daily Potassium Chloride Active 40 MEQ PO DAILY 60 December 18, 2021 11:13am Start: 12-27-2020 End: 11-12-2021 take 40 mEq by mouth twice daily Potassium Chloride Discontinued 40 MEQ PO TWICE A DAY 360 90 December 27, 2020 4:50pm November 12, 2021 2:07pm Start: 10-02-2020 End: 12-27-2020 take 20 mEq by mouth twice daily Potassium Chloride Discontinued 20 MEQ PO TWICE A DAY 60 October 02, 2020 12:00am December 27, 2020 4:51pm POTASSIUM-99 ORAL (8 sources) POTASSIUM-99 ORA L Take by mouth. Active POTASSIUM-99 ORA L Take by mouth. 0 Active Comment on above: Take by mouth. predniSONE 20 mg oral tablet (2 sources) Start: 05-16-2024 End: 05-20-2024 take 2 tablets by mouth once daily predniSONE (DELTASONE) 20 mg tablet Indications: Wheezing Take 2 tablets by mouth once daily for 4 days. 8 tablet 05/16/2024 05/20/2024 Active pregabalin 100 mg oral capsule (12 sources) Start: 11-09-2024 take 1 capsule by mouth every twelve hours pregabalin (LYRICA) 100 mg capsule Take 1 capsule by mouth every 12 hours. 11/09/2024 Active Start: 04-09-2024 take 1 capsule by mo [facility] every twelve hours pregabalin (LYRICA) 75 mg capsule Take 1 capsule by mouth every 12 hours. 04/09/2024 Active Start: 04-24-2019 End: 08-28-2020 take 200 mg by mouth twice daily Pregabalin Discontinued 200 MG PO TWICE A DAY April 24, 2019 1:00am August 28, 2020 9:26am sertraline 50 mg oral tablet (1 source) Serotonin Reuptake Inhibitor Start: 02-11-2022 Sertraline Active 50 MG PO February 11, 2022 12:00am WOMENPATRICIA FOCUS MULTIVITAMIN (1 source) Start: 02-11-2022 WOMENPATRICIA FOCUS MULTIVITAMIN Active PO February 11, 2022 12:00am Completed/Discontinued Medications Medication Drug Class(es) Dates Sig (Normalized) Sig (Original) amphetamine aspartate 3.75 mg / amphetamine sulfate 3.75 mg / dextroamphetamine saccharate 3.75 mg / dextroamphetamine sulfate 3.75 mg oral tablet (1 source) Central Nervous System Stimulant Start: 06-03-2020 End: 08-28-2020 take 15 mg by mouth once daily Dextroamphetamine -Amphetamine Discontinued 15 MG PO DAILY June 03, 2020 1:00am August 28, 2020 9:25am benzocaine 0.2 mg/mg oral gel (1 source) Standardized Chemical Allergen Start: 07-18-2021 End: 10-30-2021 Benzocaine (Anbesol (Benzocaine) Max Str) 20 % gel Discontinued 1 APPLIC MUCOUS MEM THREE TIMES A DAY July 18, 2021 1:00am October 30, 2021 1:18pm Ca Skja-Hquwhdhip-Bdwa Thistle (Liver-Kidney Cleanser) Capsule (1 source) Start: 11-12-2021 End: 02-11-2022 take 2 capsules by mouth once daily Ca Dmvj-Kjnfulfqz-Pd lk Thistle (Liver-Kidney Cleanser) Capsule Discontinued 2 CAP PO DAILY November 12, 2021 12:00am February 11, 2022 1:26pm doxycycline hyclate 100 mg oral capsule (1 source) Tetracycline-class Drug Start: 07-18-2021 End: 08-08-2021 take 100 mg by mouth twice daily Doxycycline Hyclate Discontinued 100 MG PO TWICE A DAY July 18, 2021 1:00am August 08, 2021 3:22pm energy pills (1 source) Start: 06-18-2021 End: 02-11-2022 take 1 capsule by mouth once daily energy pills Discontinued 1 CAP PO DAILY June 18, 2021 1:00am February 11, 2022 1:26pm fluticasone propionate 0.05 mg/actuat metered dose nasal spray (1 source) Corticosteroid Start: 10-16-2017 End: 02-21-2018 Fluticasone Propionate Discontinued 1 SPRAY NASAL TWICE A DAY October 16, 2017 12:00am February 21, 2018 6:06pm folic acid 1 mg oral tablet (2 sources) Start: 06-13-2020 End: 09-04-2021 take 1 mg by mouth once daily Folic Acid Discontinued 1 MG PO DAILY@0800 60 October 02, 2020 10:12am September 04, 2021 10:22am hydrOXYzine pamoate 25 mg oral capsule (2 sources) Antihistamine Start: 10-02-2020 End: 10-30-2021 take 50 mg by mouth every six hours Hydroxyzine Pamoate Discontinued 50 MG PO EVERY 6 HOURS October 02, 2020 10:13am October 30, 2021 1:18pm Start: 06-13-2020 End: 10-02-2020 take 50 mg by mouth every four hours as needed Hydroxyzine Pamoate Discontinued 50 MG PO EVERY 4 HOURS NEEDED June 13, 2020 1:00am October 02, 2020 10:13am Inhalational Spacing Device (2 sources) Start: 05-16-2024 End: 05-16-2024 Inhalational Spacing Device Indications: Wheezing 1 Device one time only for 1 dose. 1 Each 05/16/2024 05/16/2024 Start: 05-16-2024 End: 05-16-2024 Inhalational Spacing Device Indications: Wheezing 1 Device one time only for 1 dose. 1 Each 05/16/2024 05/16/2024 Active lansoprazole 30 mg disintegrating oral tablet (1 source) Proton Pump Inhibitor Start: 06-19-2021 End: 09-04-2021 take 1 tablet by mouth once daily Lansoprazole (Prevacid Solutab) 30 mg tablet,disintegrat, delay rel Discontinued 30 MG PO DAILY June 19, 2021 1:00am September 04, 2021 10:22am meloxicam 15 mg oral tablet (1 source) Nonsteroidal Anti-inflammatory Drug Start: 09-04-2021 End: 10-30-2021 take 15 mg by mouth once daily Meloxicam Discontinued 15 MG PO DAILY September 04, 2021 12:00am Carine 15th, 2022 1:19pm Do not take in conjunction with other NSAIDs. Tylenol is okay. naproxen 500 mg oral tablet (1 source) Nonsteroidal Anti-inflammatory Drug Start: 05-19-2015 End: 09-08-2017 take 500 mg by mouth twice daily Naproxen Discontinued 500 MG PO TWICE A DAY May 19, 2015 1:00am September 08, 2017 1:30pm ondansetron 4 mg disintegrating oral tablet (1 source) Serotonin-3 Receptor Antagonist Start: 11-16-2019 End: 11-23-2019 take 4 mg by mouth every eight hours as needed Ondansetron Discontinued 4 MG PO EVERY 8 HOURS NEEDED 14 7 November 16, 2019 5:42pm November 23, 2019 12:02am thiamine 100 mg oral tablet (1 source) Start: 06-13-2020 End: 10-02-2020 take 100 mg by mouth once daily at mealtime Thiamine Hcl (Vitamin B1) Discontinued 100 MG PO DAILY WITH MEALS 60 June 13, 2020 1:00am October 02, 2020 10:13am vitamin D, zinc, and magnesium (1 source) Start: 06-18-2021 End: 10-30-2021 vitamin D, zinc, and magnesium Discontinued PO June 18, 2021 1:00am October 30, 2021 1:19pm Problems Active Problems Problem Classification Problem Date Documented Da te Episodic/Chronic Abdominal pain (1 source) Abdominal pain; Translations: [Unspecified abdominal pain] Episodic Administrative/social admission (1 source) Worried well; Translations: [Person with feared health complaint in whom no diagnosis is made] Episodic Alcohol-related disorders (1 source) Alcohol withdrawal syndrome; Translations: [Alcohol withdrawal syndrome] Chronic Anxiety disorders (3 sources) Anxiety; Translations: [Anxiety disorder, unspecified] Chronic Attention-deficit, conduct, and disruptive behavior disorders (9 sources) Attention deficit hyperactivity disorder; Translations: [Attention-deficit hyperactivity disorder, unspecified type] Onset: 0 02-15-2020 Chronic Attention-deficit, conduct, and disruptive behavior disorders (1 source) Attention-deficit hyperactivity disorder, unspecified type; Translations: [Attention deficit disorder with hyperactivity] Chronic Bacterial infection; unspecified site (1 source) Helicobacter pylori [H. pylori] as the cause of diseases classified elsewhere; Translations: [Helicobacter pylori [H. pylori] as the cause of diseases classified elsewhere] Onset: 5 Episodic Conditions associated with dizziness or vertigo (3 sources) Dizziness and giddiness; Translations: [Vertigo] Onset: 8 Episodic Disorders of teeth and jaw (3 sources) Toothache; Translations: [Other specified disorders of teeth and supporting structures] Episodic Esophageal disorders (1 source) Gastroesophageal reflux disease; Translations: [Gastro-esophageal reflux disease without esophagitis] Chronic Essential hypertension (10 sources) Hypertensive disorder; Translations: [Essential (primary) hypertension] Onset: 5 08-03-2015 Chronic Gastritis and duodenitis (2 sources) Gastritis; Translations: [Gastritis, unspecified, without bleeding] Onset: 5 Episodic Genitourinary symptoms and ill-defined conditions (2 sources) Urgent desire to urinate; Translations: [Urgency of urination] Onset: 5 12-24-2024 Episodic Immunizations and screening for infectious disease (3 sources) Suspected disease caused by 2019-nCoV; Translations: [Suspected 2019 novel coronavirus infection] Episodic Menopausal disorders (9 sources) Disorder associated with menstruation AND/OR menopause; Translations: [Unspecified menopausal and perimenopausal disorder] Onset: 4 06-27-2013 Chronic Mood disorders (1 source) Depressive disorder; Translations: [Depression] Chronic Mycoses (1 source) Candidiasis of vagina; Translations: [Vaginal yeast infection] 12-25-2024 Episodic Nonspecific chest pain (2 sources) Chest pain; Translations: [Chest pain, unspecified] Onset: 5 Episodic Nutritional deficiencies (2 sources) Vitamin D deficiency; Translations: [Vitamin D deficiency, unspecified] Chronic Other connective tissue disease (3 sources) Hand pain; Translations: [Pain in left hand] Episodic Other connective tissue disease (1 source) Snapping thumb syndrome; Translations: [Trigger thumb, right thumb] Episodic Other connective tissue disease (1 source) Trigger thumb, right thumb; Translations: [Trigger finger (acquired)] Episodic Other ear and sense organ disorders (1 source) Unspecified sensorineural hearing loss; Translations: [Unspecified sensorineural hearing loss] Onset: 9 Chronic Other ear and sense organ disorders (1 source) Sensorineural hearing loss, bilateral Onset: 8 Chronic Other gastrointestinal disorders (1 source) Abdominal distension (gaseous); Translations: [Abdominal distension (gaseous)] Onset: 5 Episodic Other lower respiratory disease (2 sources) Cough; Translations: [Acute cough] 05-16-2024 Episodic Other lower respiratory disease (1 source) Wheezing; Translations: [Wheezing] 05-16-2024 Episodic Other lower respiratory disease (1 source) Dyspnea, unspecified; Translations: [Dyspnea, unspecified] Onset: Episodic Other nutritional; endocrine; and metabolic disorders (8 sources) Morbid obesity; Translations: [Morbid (severe) obesity due to excess calories] Onset: 9 08-03-2015 Chronic Other nutritional; endocrine; and metabolic disorders (1 source) Body mass index 40+ - severely obese; Translations: [Body mass index (BMI) 40.0-44.9, adult] Chronic Other nutritional; endocrine; and metabolic disorders (1 source) Morbid (severe) obesity due to excess calories; Translations: [Morbid (severe) obesity due to excess calories] Onset: Chronic Other screening for suspected conditions (not mental disorders or infectious disease) (2 sources) Electrocardiogram abnormal; Translations: [Abnormal electrocardiogram [ECG] [EKG]] Onset: Episodic Other upper respiratory infections (3 sources) Upper respiratory infection; Translations: [Acute upper respiratory infection, unspecified] 05-16-2024 Episodic Pneumonia (except that caused by tuberculosis or sexually transmitted disease) (1 source) Pneumonia; Translations: [Pneumonia, unspecified organism] Episodic Residual codes; unclassified (1 source) Obstructive sleep apnea syndrome; Translations: [Obstructive sleep apnea (adult) (pediatric)] Chronic Residual codes; unclassified (1 source) Disorders of excessive somnolence; Translations: [Hypersomnia, unspecified] Chronic Residual codes; unclassified (1 source) Hypersomnia; Translations: [Hypersomnia, unspecified] Chronic Residual codes; unclassified (2 sources) Obstructive sleep apnea (adult) (pediatric); Translations: [Obstructive sleep apnea (adult)(pediatric)] Onset: 5 Chronic Residual codes; unclassified (1 source) Decreased libido; Translations: [Decreased libido] Episodic Residual codes; unclassified (1 source) Localized edema; Translations: [Localized edema] Onset: 5 Episodic Spondylosis; intervertebral disc disorders; other back problems (8 sources) Degeneration of lumbosacral intervertebral disc; Translations: [Other intervertebral disc degeneration, lumbosacral region] Onset: 0 10-24-2019 Chronic Spondylosis; intervertebral disc disorders; other back problems (19 sources) Thoracic back pain; Translations: [Pain in thoracic spine] Onset: 5 06-29-2014 Episodic Substance-related disorders (16 sources) Cannabis abuse; Translations: [Cannabis abuse, uncomplicated] Onset: 4 08-03-2015 Chronic Substance-related disorders (2 sources) Methamphetamine withdrawal; Translations: [Other stimulant use, unspecified with withdrawal] Episodic Thyroid disorders (19 sources) Goiter; Translations: [Nontoxic goiter, unspecified] Onset: 9 06-08-2008 Chronic Unclassified (1 source) Tinnitus, right ear Onset: 8 Unclassified (1 source) Other specified hearing loss, right ear Onset: 8 Unclassified (1 source) Acute cough; Translations: [Acute cough] Onset: 4 Unclassified (1 source) Cough, unspecified; Translations: [Cough, unspecified] Onset: 4 Past or Other Problems Problem Classification Problem Date Documented Da te Episodic/Chronic Allergic reactions (2 sources) Urticaria; Translations: [Urticaria, unspecified] Onset: 07-22-2024 Episodic Diabetes mellitus without complication (1 source) Prediabetes; Translations: [Prediabetes] Onset: 09-28-2024 Episodic Other connective tissue disease (8 sources) Fibromyalgia; Translations: [Fibromyalgia] Onset: 12-26-2019 12-26-2019 Episodic Other fractures (8 sources) Compression fracture of lumbar spine; Translations: [Wedge compression fracture of first lumbar vertebra, initial encounter for closed fracture] Onset: 10-24-2019 10-24-2019 Episodic Other gastrointestinal disorders (1 source) Other fecal abnormalities; Translations: [Other fecal abnormalities] Onset: 09-28-2024 Episodic Other nutritional; endocrine; and metabolic disorders (7 sources) Obesity; Translations: [Obesity, unspecified] Onset: 05-31-2008 Resolved: 08-03-2015 08-03-2015 Chronic Residual codes; unclassified (7 sources) Sleep apnea; Translations: [Sleep apnea, unspecified] Onset: 05-31-2008 Resolved: 08-03-2015 08-03-2015 Chronic Residual codes; unclassified (8 sources) Tobacco user; Translations: [Tobacco use] Onset: 06-27-2013 06-27-2013 Episodic Residual codes; unclassified (8 sources) Insomnia; Translations: [Insomnia, unspecified] Onset: 02-15-2020 02-15-2020 Episodic Viral infection (6 sources) Disease caused by 2019-nCoV; Translations: [COVID-19] Onset: 07-22-2024 Episodic Results Test Name Value Interpretation Reference Range Facility Internal Medicine Office Vis itosanthosh 2025 Internal Medicine Office Visit [facility] [address] [place], [place] [address] OFFICE VISIT Date of Service: 01/04/25 MR#: [id number] Acct: [id number] Name: KINGSLEYBALJIT Adam Rep #: [id number] : 1970 Provider: TARYN Rodriguez Age/Sex: 55/F Location: [facility] [place] Status: Signed Intake Vital Signs 12/23/24 16:26 12/26/24 14:17 01/04/25 15:15 Height 5 ft 4 in 5 ft 4 in 5 ft 4 in Weight: 269 lb BMI 46.1 BP 124/82 H Blood Pressure Location Lt brachial Position Sitting Respiration 18 Pulse 92 Pulse Source Monitor Temp 97.8 F Temp Source Temporal Pulse Oximetry (%) 98 Oxygen Delivery Method room air Intake Visit Reasons: 12/28 (8:45am) Called. Left VM. 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 Is patient in pain?: No Allergies codeine Allergy (Verified 01/04/25 15:09) Itching lisinopril Allergy (Verified 01/04/25 15:09) Angioedema Medications ???Medication ???Instructions ???Recorded ???Confirmed ???Type acetaminophen 500 mg tablet 500 - 1,000 mg (1 - 2 x 500 mg) PO 12/18/21 01/04/25 Rx (Tylenol Extra Strength) Q6H PRN pain #60 tabs amlodipine 10 mg tablet See Rx Instructions .Route 5 01/04/25 Rx .COMPLEX #90 tabs hydrochlorothiazide 12.5 mg tablet See Rx Instructions .Route 11/0201/04/25 Rx .COMPLEX #90 tabs levothyroxine 125 mcg tablet See Rx Instructions .Route 5 01/04/25 Rx .COMPLEX #60 tabs conjugated estrogens 0.9 mg tablet 0.9 mg PO DAILY #90 tabs 5 01/04/25 Rx fluticasone propionate 110 2 puff inhalation BID #12 grams 01/04/25 Rx mcg/actuation HFA aerosol inhaler cyclobenzaprine 10 mg tablet 10 mg PO TID PRN 12/26/24 01/04/25 History duloxetine 60 mg capsule,delayed 60 mg PO BID 12/26/24 01/04/25 His tory release pregabalin 100 mg capsule 100 mg PO BID 12/26/24 01/04/25 Nv story Nurse's Note: Pt is here for f/u from last visit and when she went to the ER she states the chest pain comes and goes, she has no specific ?'s at this time. [facility] Medical History Fatigue Constipation Bloating Bilateral lower extremity edema Dyspnea Helicobacter pylori gastritis Dark stools Viral syndrome Nausea Malaise and fatigue Dermatitis Borderline type 2 diabetes mellitus Morbid obesity Tear of medial meniscus of right knee Left wrist pain Right knee pain Thyromegaly Ear discomfort Post-menopausal Alcohol use History of steroid therapy Thyroid disease Back pain History of pain when walking History of edema Normal stress echocardiogram History of echocardiogram Cardiology follow-up encounter Pre-op evaluation Prediabetes Generalized anxiety disorder Adjustment disorder Vitamin D deficiency Wears partial dentures Wears glasses Loose, teeth Substance abuse Marijuana use Depression Hypothyroid Arthritis Gastric reflux Smoker Upper respiratory infection Exposure to COVID-19 virus Suspected COVID-19 virus infection Hypersomnolence Chronic back pain Urticaria Anxiety Excessive somnolence disorder Hypertension Hypothyroidism (acquired) Abnormal EKG ADHD (attention deficit hyperactivity disorder) Labyrinthitis Vertigo Surgical History Status post arthroscopic surgery of left knee Hx of tooth extraction Hx of wisdom tooth extraction History of bilateral carpal tunnel release History of appendectomy History of hysterectomy History of tubal ligation Family History Sister , of [place] CAD (coronary artery disease) Myocardial infarction Sudden cardiac Father Pancreatic cancer Social History Smoking Status: Current every day smoker tobacco type: cigarettes Tobacco: How many years used: 30 alcohol intake: current alcohol intake frequency: holidays/special occasions only substance use type: marijuana what type of physical activity do you participate in: none HPI HPI Details: BALJIT GERMAN, is a 55 F who presents to the office today because she has worms all over her body. She states that she saw them in her eye and the doctor in the ER didn't see them. She states that she has seen probably 10 doctors in the past 3-4 months because of this. She states that she saw dermatology about 2 months ago for this and they told her it was fine. She has been to 3 different STAT cares as well as the ER several different She states that her skin feels itchy like something is crawling. She feels this in the nose, the eyes, the ears, and then occasionally in the back. She feels them in her arms, her belly, her thighs, her face and just a (more content not included)... Normal [facility] 12 Lead EKGon 12-26-2024 12 Lead EKG [facility] Cardiovascular Services [address] [place] [address] 12 Lead EKG 12/26/24 1424 MR#: [id number] Acct: [id number] Name: BALJIT GERMAN Rep #: [id number] : 1970 54 From: Kai Lucero MD Attending Dr: Status: DEP ER Ordering Dr: Gabriel Stoll DO Date: 5 Location: ED Sex: F AA Admitted: Test Reason : CP Blood Pressure : */* mmHG Vent. Rate : 89 BPM Atrial Rate : 89 BPM P-R Int : 178 ms QRS Dur : 78 ms QT Int : 370 ms P-R-T Axes : 42 -11 59 degrees QTcB Int : 450 ms Normal sinus rhythm Minimal voltage criteria for LVH, may be normal variant ( R in aVL ) Poor R-wave progression ; consider septal infarct, lead placement, or normal variant Abnormal ECG Confirmed by Kai Lucero ([id number]), website/blog editor BARBIE SUNG ([id number]) on 12/27/2024 11:41:49 AM Referred By: DEMARCO/AK Confirmed By: Kai Lucero 12/27/24 1141 Date Kai Lucero MD CC: Dr. Gabriel Stoll DO; Dr. Erika Reynolds MD Signed Normal [facility] Basic Metabolic Profile (BMP )on 12-26-2024 BUN/CRE 12.4 RATIO Normal 10-20 [facility] Comment on above: Performed By: #### L 501.9520, L100.0100 #### [facility] [address] [place], [address] Calcium [Mass/Vol] 9.7 mg/dL Normal 7.6-11.0 [facility] Comment on above: Performed By: #### L 501.9520, L100.0100 #### [facility] [address] [place], [address] Chloride [Moles/Vol] 99 mmol/L Normal 98-108 [facility] Comment on above: Performed By: #### L 501.9520, L100.0100 #### [facility] [address] [place], [address] CO2 [Moles/Vol] 24.9 mmol/L Normal 21.0-32.0 [facility] Comment on above: Performed By: #### L 501.9520, L100.0100 #### [facility] [address] [place], [address] Creatinine [Mass/Vol] 0.70 mg/dL Normal 0.70-1.20 [facility] Comment on above: Performed By: #### L 501.9520, L100.0100 #### [facility] [address] [place], [address] GAP 14 Normal 5-15 [facility] Comment on above: Performed By: #### L 501.9520, L100.0100 #### [facility] [address] [place], [address] GFR/1.73 sq M.predicted among non-blacks MDRD (S/P/Bld) [Vol rate/Area] 104 mL/min/{1.73_m2} Normal >60 [facility] Comment on above: Result Comment: mL/m in/1.73m2 CKD-EPI Creatinine Equation (2020) Performed By: #### L 501.9520, L100.0100 #### [facility] [address] [place], [address] Glucose [Mass/Vol] 123 mg/dL High 70-99 [facility] Comment on above: Performed By: #### L 501.9520, L100.0100 #### [facility] [address] [place], [address] Potassium [Moles/Vol] 3.6 mmol/L Normal 3.3-5.1 [facility] Comment on above: Performed By: #### L 501.9520, L100.0100 #### [facility] [address] [place], [address] Sodium [Moles/Vol] 138 mmol/L Normal 133-145 [facility] Comment on above: Performed By: #### L 501.9520, L100.0100 #### [facility] [address] [place], [address] Urea nitrogen [Mass/Vol] 9 mg/dL Normal 4-19 [facility] Comment on above: Performed By: #### L 501.9520, L100.0100 #### [facility] [address] [place], [address] CBC W/Diff, Automatedon 08 Absolute Lymph 4.07 X10 3/uL Normal 0.83-4.51 [facility] Comment on above: Performed By: #### L 501.9520, L100.0100 #### [facility] [address] [place], [address] Absolute Neut 2.9 X10 3/uL Normal 2.0-7.7 [facility] Comment on above: Performed By: #### L 501.9520, L100.0100 #### [facility] [address] [place], [address] Basophils/100 WBC (Bld) 1.2 % High 0-1 [facility] Comment on above: Performed By: #### L 501.9520, L100.0100 #### [facility] [address] [place], [address] Eosinophils/100 WBC (Bld) 6.5 % High 0-5 [facility] Comment on above: Performed By: #### L 501.9520, L100.0100 #### [facility] [address] [place], [address] Erythrocyte distribution width (RBC) [Ratio] 13.1 % Normal 11.6-14.6 [facility] Comment on above: Performed By: #### L 501.9520, L100.0100 #### [facility] [address] [place], [address] Hematocrit (Bld) [Volume fraction] 40.8 % Normal 37-47 [facility] Comment on above: Performed By: #### L 501.9520, L100.0100 #### [facility] [address] [place], [address] Hemoglobin (Bld) [Mass/Vol] 13.4 g/dL Normal 12.0-15.0 [facility] Comment on above: Performed By: #### L 501.9520, L100.0100 #### [facility] [address] [place], [address] IG% 0.200 Normal 0.0-0.9 [facility] Comment on above: Result Comment: IG% - Immature Granulocytes (promyelocytes, myelocytes and metamyelocytes) > 1% indicates that a LEFT SHIFT is Present. Performed By: #### L 501.9520, L100.0100 #### [facility] [address] [place], [address] Lymphocytes/100 WBC (Bld) 50.1 % High 19-41 [facility] Comment on above: Performed By: #### L 501.9520, L100.0100 #### [facility] [address] [place], [address] MCH (RBC) [Entitic mass] 27.2 pg Normal 27.0-32.0 [facility] Comment on above: Performed By: #### L 501.9520, L100.0100 #### [facility] [address] [place], [address] MCHC (RBC) [Mass/Vol] 32.8 g/dL Normal 32-36 [facility] Comment on above: Performed By: #### L 501.9520, L100.0100 #### [facility] [address] [place], [address] MCV (RBC) [Entitic vol] 82.9 fL Normal 81-99 [facility] Comment on above: Performed By: #### L 501.9520, L100.0100 #### [facility] [address] [place], [address] Monocytes/100 WBC (Bld) 6.3 % Normal 0-10 [facility] Comment on above: Performed By: #### L 501.9520, L100.0100 #### [facility] [address] [place], [address] Neutrophils/100 WBC (Bld) 35.7 % Low 47-70 [facility] Comment on above: Performed By: #### L 501.9520, L100.0100 #### [facility] [address] [place], [address] Nucleated RBC (Bld) [#/Vol] 0 10*3/uL Normal 0-5 [facility] Comment on above: Performed By: #### L 501.9520, L100.0100 #### [facility] [address] [place], [address] Platelet mean volume (Bld) [Entitic vol] 10.3 fL Normal 6.2-12.0 [facility] Comment on above: Performed By: #### L 501.9520, L100.0100 #### [facility] [address] [place], [address] Platelets (Bld) [#/Vol] 316 10*3/uL Normal 150-450 [facility] Comment on above: Performed By: #### L 501.9520, L100.0100 #### [facility] [address] [place], [address] RBC (Bld) [#/Vol] 4.92 10*6/uL Normal 4.2-5.4 [facility] Comment on above: Performed By: #### L 501.9520, L100.0100 #### [facility] [address] [place], [address] RDW SD 39.3 fl Normal 35.1-43.9 [facility] Comment on above: Performed By: #### L 501.9520, L100.0100 #### [facility] [address] [place], [address] WBC (Bld) [#/Vol] 8.1 10*3/uL Normal 4.4-11.0 [facility] Comment on above: Performed By: #### L 501.9520, L100.0100 #### [facility] [address] [place], [address] Chest PA and Lateralon 12-26 Chest PA and Lateral [facility] Imaging Services [address] [place] [address] Chest PA and Lateral MR#: [id number] Acct: [id number] Name: BALJIT GERMAN Rep #: [id number] : 1970 F 54 From: Deangelo jimenez MD PCP: Dr. Erika Reynolds MD Status: REG ER Study: Chest PA and Lateral Date of Exam: 12/26/24 Exam# [id number] Ordering Dr: Gabriel Stoll DO PROCEDURE: CHEST PA AND LATERAL 12/26/2024 REASON FOR EXAM: CHEST PAIN TECHNIQUE: CHEST PA AND LATERAL COMPARISON: Prior study dated July 21, 2024. FINDINGS: Hardware: EKG electrodes are seen. Heart: The heart size is normal. Mediastinum: The mediastinal contour is unremarkable. Lungs: The lungs are clear. Bones: Degenerative changes are identified within the thoracic spine. RAD/Chest PA and Lateral IMPRESSION: NO ACUTE FINDINGS. Reading Location: [place] [address] CC: Dr. Gabriel Stoll DO; Dr. Erika Reynolds MD Sieve Repairer: Signed Normal [facility] D-Dimer Quantitative (DVT/PE )on 12-26-2024 D-DIMER QUANT 0.27 FEU/ug/m Normal 0.27-0.49 [facility] Comment on above: Result Comment: NORM AL D-Dimer level (<0.50) indicates no DVT or PE. Performed By: #### L 300.8000, L500.2500, L501.4021, L100.0100 ####[facility] [id number] [place], [address] Emergency Department Summary on 12-26-2024 Emergency Department Summary [facility] Medical Records Department [address] [place] [address] Emergency Department Summary 12/26/24 MR#: [id number] Acct: [id number] Name: BALJIT GERMAN Rep #: [id number] : 1970 54 From: Gabriel Stoll DO PCP: Dr. Erika Reynolds MD Status:DEP ER Location: ED HPI History of Present Illness Chief Complaint: Chest Pain Narrative Narrative: Chief complaint and HPI: Left upper arm pain. 54-year-old female with past medical history of HTN, hypothyroidism, depression/anxiety, GERD with history of H. pylori presents for evaluation of left upper arm pain. Patient states for the past 4 months she has been having vague symptoms such as right ear fullness, sore throat, lightheadedness, shortness of breath. She states I do not know I just feel weird. States that she is seeing her physician as she is concerned there is a parasite in her body. She states she recently had tooth pain in which she was seen by her dentist and placed on antibiotics for possible tooth infection. Patient states since yesterday evening she has had pain in her left upper arm occasionally radiates into her chest. Describes it as sharp. Denies true chest pain. Denies any fever, chills, URI symptoms, abdominal pain, nausea, vomiting, dysuria. Review of systems: See HPI Medications: As listed on the chart Allergies: As listed on the chart PFSH: Per chart Vital signs: As listed on the chart. Reviewed. Physical exam: Gen: A O x3, NAD Head: Normocephalic, atraumatic Eyes: No sclera icterus, conjunctiva clear, PERRL, EOMI ENT: TMs clear BL, moist mucous membranes, posterior oropharynx unremarkable, uvula midline, tonsils not enlarged, no tonsillar exudates, no Dontae angina, no obvious dental infection or abscess Neck: Trachea midline, No JVD, Full ROM, No meningismus, no lymphadenopathy CV: RRR, no murmurs, no peripheral edema, left chest wall tender to palpation in the anterior ribs where the ribs attach to the sternum-somewhat recreates her pain Resp: Lungs CTA BL, no w/r/c GI: Abd soft, non-distended, non-tender, no r/r/g Musc: Full ROM including the left upper extremity without any tenderness, no deformity, radial pulses +2 bilaterally Skin: Warm, dry, no rash Neuro: Alert, oriented, grossly intact, sensation intact Psych: Cooperative, intermittently tearful [facility] Medical History Fatigue Constipation Bloating Bilateral lower extremity edema Dyspnea Helicobacter pylori gastritis Dark stools Viral syndrome Nausea Malaise and fatigue Dermatitis Borderline type 2 diabetes mellitus Morbid obesity Tear of medial meniscus of right knee Left wrist pain Right knee pain Thyromegaly Ear discomfort Post-menopausal Alcohol use History of steroid therapy Thyroid disease Back pain History of pain when walking History of edema Normal stress echocardiogram History of echocardiogram Cardiology follow-up encounter Pre-op evaluation Prediabetes Generalized anxiety disorder Adjustment disorder Vitamin D deficiency Wears partial dentures Wears glasses Loose, teeth Substance abuse Marijuana use Depression Hypothyroid Arthritis Gastric reflux Smoker Upper respiratory infection Exposure to COVID-19 virus Suspected COVID-19 virus infection Hypersomnolence Chronic back pain Urticaria Anxiety Excessive somnolence disorder Hypertension Hypothyroidism (acquired) Abnormal EKG ADHD (attention deficit hyperactivity disorder) Labyrinthitis Vertigo Home Medications ???Medication ???Instructions ???Recorded ???Last Taken ???Type acetaminophen 500 mg tablet 500 - 1,000 mg (1 - 2 x 500 mg) PO 12/18/21 Unknown Rx (Tylenol Extra Strength) Q6H PRN pain #60 tabs amlodipine 10 mg tablet See Rx Instructions .Route 5 12/25/24 Rx .COMPLEX #90 tabs hydrochlorothiazide 12.5 mg tablet See Rx Instructions .Route 11/0212/25/24 Rx .COMPLEX #90 tabs levothyroxine 125 mcg tablet See Rx Instructions .Route 5 12/26/24 Rx .COMPLEX #60 tabs conjugated estrogens 0.9 mg tablet 0.9 mg PO DAILY #90 tabs 5 12/25/24 Rx amoxicillin 500 mg-potassium 1 tab PO TID 12/23/24 12/26/24 His tory clavulanate 125 mg tablet fluticasone propionate 110 2 puff inhalation BID #12 grams 12/25/24 Rx mcg/actuation HFA aerosol inhaler prednisone 10 mg tablet 10 mg PO TID #15 tabs 12/23/24 Unk nown Rx cyclobenzaprine 10 mg tablet 10 mg PO TID PRN 12/26/24 Unknown History duloxetine 60 mg capsule,delayed 60 mg PO BID 12/26/24 12/25/24 His tory release pregabalin 100 mg capsule 100 mg PO BID 12/26/24 12/25/24 Hi story Allergy/AdvReac Type Severity Reaction Status Date / Time codeine Allergy Itching Verified 12/26/24 14:16 juni (more content not included)... Normal [facility] L501.4021on 12-26-2024 Trop T High Sen 6 ng/L Normal <=14 [facility] Comment on above: Performed By: #### L 300.8000, L500.2500, L501.4021, L100.0100 ####[facility] [id number] [place], [place], [id number] Troponin T HS 2 HRon 025 Trop T High Sen Normal <=14 [facility] Comment on above: Result Comment: NISHI ENT DISCHARGED Performed By: #### L 506.0400, L3100.5055, L501.9520, L3300.1500, L501.9985, L3100.5310, L801.2600, L3300.1750, L500.4050, L509.6000 #### [facility] [address] [place], [place], [id number] Urine Drug Screen (VISTA)on 12-26-2024 AMPHETAMINES Positive Normal <1000 ng/mL [facility] Comment on above: Result Comment: If c onfirmation testing is needed, a separate order will be required to send out testing to the reference laboratory. Performed By: #### L 501.9520, L100.0100 #### [facility] [address] [place], [address] BARBITIURATES Negative Normal < 200 ng/mL [facility] Comment on above: Performed By: #### L 501.9520, L100.0100 #### [facility] [address] [place], [address] BENZODIAZIPINE Negative Normal < 200 ng/mL [facility] Comment on above: Performed By: #### L 501.9520, L100.0100 #### [facility] [address] [place], [address] BUP Ur Drug Scr Negative Normal < 200 ng/mL [facility] Comment on above: Performed By: #### L 501.9520, L100.0100 #### [facility] [address] [place], [address] COCAINE Negative Normal < 300 ng/mL [facility] Comment on above: Performed By: #### L 501.9520, L100.0100 #### [facility] [address] [place], [address] Fentanyl Negative Normal [facility] Comment on above: Performed By: #### L 501.9520, L100.0100 #### [facility] [address] [place], [address] METHADONE Negative Normal < 300 ng/mL [facility] Comment on above: Performed By: #### L 501.9520, L100.0100 #### [facility] [address] [place], [address] OPIATES Negative Normal < 300 ng/mL [facility] Comment on above: Performed By: #### L 501.9520, L100.0100 #### [facility] [address] [place], [address] OXYCODONE Negative Normal < 100 ng/mL [facility] Comment on above: Performed By: #### L [id number], L100.0100 #### [facility] [address] [place], [address] PCP Negative Normal < 25 ng/mL [facility] Comment on above: Performed By: #### L [id number], L100.0100 #### [facility] [address] [place], [address] THC Positive Normal < 50 ng/mL [facility] Comment on above: Result Comment: If c onfirmation testing is needed, a separate order will be required to send out testing to the reference laboratory. Performed By: #### L [id number], L100.0100 #### [facility] [address] [place], [place], [address] [facility] Telephone (WOUCA) BALJIT GERMAN ([id number]) 1970 F Date Time Provider Department 12/25/24 ALVARADO DURAN During your visit today, we recorded the following information about you: Alvarado Duran APRN.CNP 12/25/2024 8:37 AM Signed Vaginitis swab positive for yeast. [facility] Allergies As of Date: 12/25/2024 Noted Allergy Reaction LISINOPRIL 07/19/2012 10 - Anaphylaxis 18 - Angioedema CODEINE 07/23/2009 9 - Itching Date Reviewed: 12/24/2024 Reviewed by: Lorena Wren MA - Fully Assessed Primary Visit Diagnosis:Vaginal yeast infection [B37.31] Order(s):fluconazole (DIFLUCAN) 150 mg tabletTake 1 tablet by mouth one time only for 1 dose. If no resolution of symptoms in 72 hours can take another dose.Disp: 1 tabletRfl: 0 Prescriptions as of 12/25/2024 - fluconazole (DIFLUCAN) 150 mg tablet Take 1 tablet by mouth one time only for 1 dose. If no resolution of symptoms in 72 hours can take another dose. - methylPREDNISolone (MEDROL DOSE-PACK) 4 mg Dose-Pack Take by mouth as directed. Per package instructions - levothyroxine (SYNTHROID) 125 mcg tablet Take 125 mcg by mouth once daily. - cyclobenzaprine (FLEXERIL) 10 mg tablet Take 10 mg by mouth three times a day as needed. - PREMARIN 0.9 mg tablet - pregabalin (LYRICA) 100 mg capsule Take 1 capsule by mouth every 12 hours. - DULoxetine (CYMBALTA) 60 mg capsule Take 1 capsule by mouth every 12 hours. - pregabalin (LYRICA) 75 mg capsule Take 1 capsule by mouth every 12 hours. - albuterol HFA (PROVENTIL HFA, VENTOLIN HFA) 90 mcg/actuation inhaler Inhale 2 Puffs as instructed every 4 hours as needed for wheezing/shortness of breath. - POTASSIUM-99 ORAL Take by mouth. - Vitamin C30-Jlemz Acid 0.5-1 mg tab Take by mouth. - levothyroxine (LEVOXYL) 150 mcg tablet Take 1 tablet by mouth once daily. Take on empty stomach. For thyroid. - amLODIPine (NORVASC) 10 mg tablet Take 1 tablet by mouth once daily. - estrogens conjugated (PREMARIN) 1.25 mg tablet Take 1 tablet by mouth once daily. - Hydrochlorothiazide 12.5 mg capsule Take 1 capsule by mouth once daily. - Blood Pressure Monitor (BLOOD PRESSURE KIT) Dx: HTN, labile blood pressures - amitriptyline (ELAVIL) 10 mg tablet Take 1 tablet by mouth daily at bedtime. Problem List As Of Date 12/25/2024 Noted Resolved Routine general medical examination at [facility]*05/31/2008 08/03/2015 OBESITY NOS [E66.9] 05/31/2008 08/03/2015 GOITER NOS [E04.9] 05/31/2008 Hypothyroidism [E03.9] 05/31/2008 Unspecified sleep apnea [G47.30] 05/31/2008 08/03/2015 Tobacco abuse [Z72.0] 06/27/2013 Menopausal disorder [N95.9] 06/27/2013 Thoracic back pain [M54.6] 06/29/2014 Hypertension [I10] Morbid obesity (HCC) [E66.01] 05/31/2008 Marijuana abuse [F12.10] Cocaine abuse [F14.10] 10/16/2013 Midline low back pain without sciatica [M54.50] 10/24/2019 Compression fracture of L1 vertebra (HCC) [S32.*10/24/2019 Degeneration of lumbar or lumbosacral intervert*10/24/2019 Fibromyalgia [M79.7] 12/26/2019 Insomnia [G47.00] 02/15/2020 Attention deficit hyperactivity disorder (ADHD)*02/15/2020 Prescriptions ordered this encounter Disp Refills Start End FLUCONAZOLE 150 MG TABLET 3 ta* 0 12/25/2024 12/25/2024 Route: PO Sig: Take 1 tablet by mouth one time only for 1 dose. If no resolution of symptoms in 72 hours can take another dose. FLUCONAZOLE 150 MG TABLET 1 ta* 0 12/25/2024 12/25/2024 Route: PO Sig: Take 1 tablet by mouth one time only for 1 dose. If no resolution of symptoms in 72 hours can take another dose. Medications Discontinued During This Encounter Prescriptions - fluconazole (DIFLUCAN) 150 mg tablet (Discontinued) Take 1 tablet by mouth one time only for 1 dose. If no resolution of symptoms in 72 hours can take another dose. Encounter Status:Closed by ALVARADO DURAN on 12/25/24 Normal [facility] BACTERIAL VAGINOSIS NAATon 0 12-24-2024 Lactobacillus crispatus+gasseri+je nsenii + Gardnerella vaginalis + Atopobium vaginae rRNA JOSE LUIS+probe Ql (Vag fld) Not detected Normal Not detected [facility] Comment on above: Order Comment: Speci men Type: SWAB Ordering Facility: [facility] Address: [address] [place] [address] Performed By: #### C VTV, BVAMP #### [facility] CLIA [id number] [address] [place] [address] [place] [address] [place] Bacteria Ur Culton 08-09-202 5 Bacteria identified Cx Nom (U) CULTURE, URINE: Normal urogenital rashi: ORGANISM ID: 1 >=100,000 CFU/ml Corynebacterium amycolatum No further workup Normal [facility] Comment on above: Performed By: #### 6 30-4 #### [facility] CLIA [id number] [address] [place] [address] [place] MARY/TRICHOMONAS NAATon 0 12-24-2024 C. glabrata RNA JOSE LUIS+probe Ql (Vag fld) Not detected Normal Not detected [facility] Comment on above: Order Comment: Speci men Type: SWAB Ordering Facility: [facility] Address: [address] [place] [address] Performed By: #### C VTV, BVAMP #### [facility] CLIA [id number] [address] [place] [address] Mary sp DNA JOSE LUIS+probe Ql (Vag fld) Detected Abnormal Not detected [facility] Comment on above: Order Comment: Speci men Type: SWAB Ordering Facility: [facility] Address: [address] [place] [address] Result Comment: The Mary species group target includes C. albicans, C. tropicalis, C. parapsilosis, and C. dubliniensis. Performed By: #### C VTV, BVAMP #### [facility] CLIA [id number] [address] [place] [address] OF [place] T. vaginalis DNA JOSE LUIS+probe Ql (Unsp spec) Not detected Normal Not detected [facility] Comment on above: Order Comment: Speci men Type: SWAB Ordering Facility: [facility] Address: [address] [place] [address] Performed By: #### C VTV, BVAMP #### [facility] CLIA [id number] [address] [place] [address] [place] CNOVon 12-24-2024 CNOV Office Visit (WOUCA) BALJIT GERMAN ([id number]) 1970 F Date Time Provider Department 12/24/24 11:30 AM ALVARADO DURAN WOULICES During your visit today, we recorded the following information about you: Temperature Pulse Respiration Blood pressure 98.5 degrees 78/minute 16/minute 118/72 Weight 124.1 kg Alvarado Duran APRN.WRAPPER HAND 12/24/2024 12:18 PM Signed [facility] Subjective Baljit German is a 54 year old female. Patient presents with: UTI pinworms UTI Associated symptoms include urgency. Pertinent negatives include no frequency and no hematuria. Parasitic Infection Concerns: - Reports seeing itty bitty white things coming out of her skin last night. - Describes appearance of eggs under her skin, resembling writing. - Denies seeing a feeder tender. Urinary Urgency: - Reports urinary urgency and decreased urine output. - Denies dysuria. - She is sure she has an infection and needs medication. Review of Systems Constitutional: Negative for fatigue and fever. Genitourinary: Positive for urgency. Negative for decreased urine volume, dysuria, frequency, genital sores, hematuria, vaginal bleeding, vaginal discharge and vaginal pain. Objective BP 118/72 Pulse 78 Temp 36.9 ?C (98.5 ?F) (Tympanic) Resp 16 Wt 124.1 kg (273 lb 9.5 oz) LMP 02/19/2010 BMI 46.96 kg/m? PAST MEDICAL HISTORY[1] PAST SURGICAL HISTORY Procedure Laterality Date APPENDECTOMY 03/2012 same time as hysterectomy CARPAL TUNNEL 2012 left ENTERORRHAPHY MULTIPLE PERFORATIONS 03/24/12 x 2; during BSO EXTRACTION, ERUPTED TOOTH OR EXPOSED ROOT (ELEVATION AND/OR FORCEPS REMOVAL) 2015 infected tooth extracted INDUCED - EVACUATION x 2 NEUROPLASTY AND/TRANSPOS MEDIAN NRV CARPAL TUNNE 08/20/2012 Carpal tunnel decomp - right S TUBAL LIGATION 1993 SALPINGO-OOPHORECTOMY COMPL/PRTL UNI/BI SPX 2012 Ayxqewdw-[id number] one separate from hysterectomy TOTAL ABDOMINAL HYSTERECT W/WO RMVL TUBE OVARY 2011 JANNA for fibroids ALLERGIES Lisinopril and Codeine MEDICATIONS methylPREDNISolone (MEDROL DOSE-PACK) 4 mg Dose-Pack Take by mouth as directed. Per package instructions levothyroxine (SYNTHROID) 125 mcg tablet Take 125 mcg by mouth once daily. cyclobenzaprine (FLEXERIL) 10 mg tablet Take 10 mg by mouth three times a day as needed. PREMARIN 0.9 mg tablet pregabalin (LYRICA) 100 mg capsule Take 1 capsule by mouth every 12 hours. DULoxetine (CYMBALTA) 60 mg capsule Take 1 capsule by mouth every 12 hours. amLODIPine (NORVASC) 10 mg tablet Take 1 tablet by mouth once daily. Hydrochlorothiazide 12.5 mg capsule Take 1 capsule by mouth once daily. pregabalin (LYRICA) 75 mg capsule Take 1 capsule by mouth every 12 hours. (Patient not taking: Reported on 12/24/2024) albuterol HFA (PROVENTIL HFA, VENTOLIN HFA) 90 mcg/actuation inhaler Inhale 2 Puffs as instructed every 4 hours as needed for wheezing/shortness of breath. (Patient not taking: Reported on 12/24/2024) POTASSIUM-99 ORAL Take by mouth. (Patient not taking: Reported on 12/24/2024) Vitamin J92-Mfcbt Acid 0.5-1 mg tab Take by mouth. (Patient not taking: Reported on 12/24/2024) levothyroxine (LEVOXYL) 150 mcg tablet Take 1 tablet by mouth once daily. Take on empty stomach. For thyroid. (Patient not taking: Reported on 12/24/2024) estrogens conjugated (PREMARIN) 1.25 mg tablet Take 1 tablet by mouth once daily. (Patient not taking: Reported on 12/24/2024) Blood Pressure Monitor (BLOOD PRESSURE KIT) Dx: HTN, labile blood pressures (Patient not taking: Reported on 12/24/2024) amitriptyline (ELAVIL) 10 mg tablet Take 1 tablet by mouth daily at bedtime. (Patient not taking: Reported on 12/24/2024) FAMILY HISTORY[2] SOCIAL HISTORY[3] Physical Exam Constitutional: General: She is not in acute distress. Appearance: Normal appearance. She is normal weight. She is not toxic-appearing. HENT: Head: Normocephalic and atraumatic. Eyes: Pupils: Pupils are equal, round, and reactive to light. Cardiovascular: Rate and Rhythm: Normal rate and regular rhythm. Pulses: Normal pulses. Heart sounds: Normal heart sounds. Pulmonary: Effort: Pulmonary effort is normal. Breath sounds: Normal breath sounds. Abdominal: General: There is no distension. Palpations: There is no mass. Tenderness: There is no abdominal tenderness. There is no right CVA tenderness, left CVA tenderness, guarding or rebound. Hernia: No hernia is present. Skin: Findings: No abrasion, erythema, laceration, lesion or rash. Rash is not crusting, macular, nodular, papular, purpuric, pustular or urticarial. Comments: Skin: Normal hair follicles observed, no parasites or abnormal lesions noted. Neurological: Mental Status: She is alert. General: No acute distress. Skin: Normal hair follicles observed, no parasites or abnormal lesions noted. Breast: Skin under (more content not included)... Normal [facility] UA DIP, URINE (POC)on 2024 BILIRUBIN UA (POCT) Negative Negative [facility] CLARITY UA (POCT) Clear [facility] COLOR UA (POCT) Yellow [facility] GLUCOSE UA (POCT) Negative Negative mg/dL [facility] Hemoglobin Ql (U) Negative Negative [facility] KETONE UA (POCT) Trace Negative mg/dL [facility] LEUKOCYTES UA (POCT) Negative Negative [facility] NITRITE UA (POCT) Negative Negative [facility] PH UA (POCT) 5.5 4.5 - 8.0 [facility] Protein Ql (U) Negative Negative mg/dL [facility] SPECIFIC GRAVITY UA (POCT) 1.025 1.005 - 1.030 [facility] UROBILINOGEN UA (POCT) 0.2 Normal E.U./dL [facility] Location:[facility], [address], [place], [address] [facility] POINT OF CARE [facility] Internal Medicine Office Vis iton 12-23-2024 Internal Medicine Office Visit [facility] [address] [place], [place] [address] OFFICE VISIT Date of Service: 12/23/24 MR#: [id number] Acct: [id number] Name: BALJIT GERMAN Rep #: [id number] : 1970 Provider: TARYN Rodriguez Age/Sex: 54/F Location: [facility] [place].[facility] Status: Signed Intake Vital Signs 11/23/24 09:45 12/23/24 10:38 12/23/24 16:26 Height 5 ft 4 in 5 ft 4 in 5 ft 4 in Weight: 266 lb 4 oz 273 lb 8 oz BMI 45.7 46.9 BP 132/82 H 136/84 H Blood Pressure Location Lt brachial Lt brachial Position Sitting Sitting Respiration 16 16 Pulse 83 96 Pulse Source Monitor Monitor Temp 96.7 F L 98.8 F Temp Source Temporal Temporal Pulse Oximetry (%) 93 Oxygen Delivery Method room air room air Intake Visit Reasons: Wheezing for past 2 weeks... Chief Complaint: Wheezing for 2 weeks 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 Accompanied by: Self Is patient in pain?: No Allergies codeine Allergy (Verified 12/23/24 16:17) Itching lisinopril Allergy (Verified 12/23/24 16:17) Angioedema Medications ???Medication ???Instructions ???Recorded ???Confirmed ???Type acetaminophen 500 mg tablet 500 - 1,000 mg (1 - 2 x 500 mg) PO 12/18/21 12/23/24 Rx (Tylenol Extra Strength) Q6H PRN pain #60 tabs duloxetine 30 mg capsule,delayed 60 mg PO BID 09/28/24 12/23/24 His tory release (Cymbalta) omeprazole 40 mg capsule,delayed 40 mg PO QDAY #90 caps 09/28/24 Rx release pregabalin 75 mg capsule 100 mg PO BID 09/28/24 12/23/24 Hi story amlodipine 10 mg tablet See Rx Instructions .Route 5 12/23/24 Rx .COMPLEX #90 tabs hydrochlorothiazide 12.5 mg tablet See Rx Instructions .Route 11/0212/23/24 Rx .COMPLEX #90 tabs cholecalciferol (vitamin D3) 25 25 mcg PO QDAY 11/07/24 12/23/24 H istory mcg (1,000 unit) capsule garlic 300 mg capsule 300 mg PO QDAY 11/07/24 12/23/24 H istory levothyroxine 125 mcg tablet See Rx Instructions .Route 5 12/23/24 Rx .COMPLEX #60 tabs conjugated estrogens 0.9 mg tablet 0.9 mg PO DAILY #90 tabs 5 12/23/24 Rx amoxicillin 500 mg-potassium 1 tab PO TID 12/23/24 12/23/24 His tory clavulanate 125 mg tablet fluconazole 150 mg tablet 150 mg PO ONCE #1 TAB 12/23/2401/09 Rx fluticasone propionate 110 2 puff inhalation BID #12 grams 12/23/24 Rx mcg/actuation HFA aerosol inhaler prednisone 10 mg tablet 10 mg PO TID #15 tabs 12/23/2401/09 Rx Nurse's Note: Patient presents with wheezing for last [address] Was [address] Dr[address] Reynolds on 11/23/24 for bloating, which has gotten better but wheezing has worsened. Also has a concern for a vaginal rash; it itches along with pain internally. Additionally, has been taking amoxicillin for tooth infection. [facility] Medical History Fatigue Constipation Bloating Bilateral lower extremity edema Dyspnea Helicobacter pylori gastritis Dark stools Viral syndrome Nausea Malaise and fatigue Dermatitis Borderline type 2 diabetes mellitus Morbid obesity Tear of medial meniscus of right knee Left wrist pain Right knee pain Thyromegaly Ear discomfort Post-menopausal Alcohol use History of steroid therapy Thyroid disease Back pain History of pain when walking History of edema Normal stress echocardiogram History of echocardiogram Cardiology follow-up encounter Pre-op evaluation Prediabetes Generalized anxiety disorder Adjustment disorder Vitamin D deficiency Wears partial dentures Wears glasses Loose, teeth Substance abuse Marijuana use Depression Hypothyroid Arthritis Gastric reflux Smoker Upper respiratory infection Exposure to COVID-19 virus Suspected COVID-19 virus infection Hypersomnolence Chronic back pain Urticaria Anxiety Excessive somnolence disorder Hypertension Hypothyroidism (acquired) Abnormal EKG ADHD (attention deficit hyperactivity disorder) Labyrinthitis Vertigo Surgical History Status post arthroscopic surgery of left knee Hx of tooth extraction Hx of wisdom tooth extraction History of bilateral carpal tunnel release History of appendectomy History of hysterectomy History of tubal ligation Family History Sister , of [place] CAD (coronary artery disease) Myocardial infarction Sudden cardiac Father Pancreatic cancer Social History Smoking Status: Current every day smoker tobacco type: cigarettes Tobacco: How many years used: 30 alcohol intake: current alcohol intake frequency: holidays/special occasions only substance use type: marijuana what type of physical activity do you participate in: none HP (more content not included)... Normal [facility] CNOVon 12-02-2024 CN Office Visit (WOUCA) BALJIT GERMAN ([id number]) 1970 F Date Time Provider Department 12/02/24 5:15 PM FERNANDO GÓMEZ During your visit today, we recorded the following information about you: Temperature Pulse Respiration Blood pressure 98.1 degrees 94/minute 20/minute 119/83 Fernando Gómez APRN.WRAPPER HAND 12/02/2024 5:30 PM Signed Subjective HPI Nontoxic. 54-year-old female presents urgent care chief plaint sore throat right ear pain. Duration of symptoms 4 days. Associated symptoms sore throat right ear pain headache fatigue. New shortness of breath and chest discomfort today. Patient states walker was because she gets extremely winded. OTC medications have not helped. Denies any fevers. Past medical history prescription medications allergies reviewed. .Patient presents with: Sore Throat: R ear pain/ jaw pain x4 days, Shortness of Breath, fatigue PAST MEDICAL HISTORY Diagnosis Date ADHD (attention deficit hyperactivity disorder) Anxiety Cocaine abuse (HCC) 10/2013 Current smoker GERD (gastroesophageal reflux disease) GOITER NOS 05/31/2008 Previously with hyperthyroidism but presented with hypothyrodism in 05-26: US ordered US 05-26: 6.8 mm nodule in the mid R lobe with a heterogenously enlarged thyroid Hormone replacement therapy (HRT) 03/2012 Hypercholesterolemia 10/2012 Hypertension HYPOTHYROIDISM NOS 05/31/2008 TSH 0.07 (0.5-6) in 05-26: likely suppressed from thyrotoxicosis in the past (consider TRH testing) T3 86 (94-170) in 05-26 T4 4.2 (4.9-11) in 05-26 TU and FTI in therapeutic range as of 05-26 MRI 05-26 with NL findings and no pituitary issues Incisional pain 07/23/2012 Left carpal tunnel syndrome 03/25/2013 Marijuana abuse 12/2012, 10/2013 Morbid obesity (HCC) 05/31/2008 Pain in joint, lower leg 12/28/2009 Pain in thoracic spine 05/31/2008 Puncture wound of small intestine, open 03/26/2012 Right carpal tunnel syndrome 08/20/2012 Right upper quadrant abdominal pain 06/29/2014 Withdrawal from methamphetamine (HCC) 06/10/2020 AND other substances. Rehab at [facility] PAST SURGICAL HISTORY Procedure Laterality Date APPENDECTOMY 03/2012 same time as hysterectomy CARPAL TUNNEL 2013 left ENTERORRHAPHY MULTIPLE PERFORATIONS 03/24/12 x 2; during BSO EXTRACTION, ERUPTED TOOTH OR EXPOSED ROOT (ELEVATION AND/OR FORCEPS REMOVAL) 2016 infected tooth extracted INDUCED - EVACUATION x 2 NEUROPLASTY AND/TRANSPOS MEDIAN NRV CARPAL TUNNE 08/20/2012 Carpal tunnel decomp - right S TUBAL LIGATION 1994 SALPINGO-OOPHORECTOMY COMPL/PRTL UNI/BI SPX 2011 Zwgtdtjs-aicebnanlogn-o one separate from hysterectomy TOTAL ABDOMINAL HYSTERECT W/WO RMVL TUBE OVARY 2011 JANNA for fibroids ALLERGIES Lisinopril and Codeine MEDICATIONS methylPREDNISolone (MEDROL DOSE-PACK) 4 mg Dose-Pack Take by mouth as directed. Per package instructions levothyroxine (SYNTHROID) 125 mcg tablet Take 125 mcg by mouth once daily. cyclobenzaprine (FLEXERIL) 10 mg tablet Take 10 mg by mouth three times a day as needed. PREMARIN 0.9 mg tablet pregabalin (LYRICA) 100 mg capsule Take 1 capsule by mouth every 12 hours. DULoxetine (CYMBALTA) 60 mg capsule Take 1 capsule by mouth every 12 hours. pregabalin (LYRICA) 75 mg capsule Take 1 capsule by mouth every 12 hours. Vitamin F65-Jrodc Acid 0.5-1 mg tab Take by mouth. amLODIPine (NORVASC) 10 mg tablet Take 1 tablet by mouth once daily. Hydrochlorothiazide 12.5 mg capsule Take 1 capsule by mouth once daily. albuterol HFA (PROVENTIL HFA, VENTOLIN HFA) 90 mcg/actuation inhaler Inhale 2 Puffs as instructed every 4 hours as needed for wheezing/shortness of breath. (Patient not taking: Reported on 06/17/2024) POTASSIUM-99 ORAL Take by mouth. (Patient not taking: Reported on 05/16/2024) levothyroxine (LEVOXYL) 150 mcg tablet Take 1 tablet by mouth once daily. Take on empty stomach. For thyroid. (Patient not taking: Reported on 12/02/2024) estrogens conjugated (PREMARIN) 1.25 mg tablet Take 1 tablet by mouth once daily. (Patient not taking: Reported on 12/02/2024) Blood Pressure Monitor (BLOOD PRESSURE KIT) Dx: HTN, labile blood pressures (Patient not taking: Reported on 09/10/2021 ) amitriptyline (ELAVIL) 10 mg tablet Take 1 tablet by mouth daily at bedtime. (Patient not taking: Reported on 09/10/2021 ) FAMILY HISTORY Problem Relation Age of Onset Hypertension Father other (Pancreatic cancer [Other]) Father Diabetes Father Social History Tobacco Use Smoking status: Every Day Current packs/day: 0.50 Average packs/day: 0.5 packs/day for 15.0 years (7.5 ttl pk-yrs) Types: Cigarettes Smokeless tobacco: Never Vaping Use Vaping status: Never Used Substance Use Topics Alcohol use: Not Currently Comment: occasionally Drug use: Not Currently Comment: marijuana 1-2x's/week; cocaine-pt states rarely uses BP 119/83 Pulse 94 (more content not included)... Normal [facility] CBC W/Diff, Automatedon 07-0 SMEAR COMMENT COMMENT Normal [facility] Comment on above: Result Comment: LYMP HOCYTOSIS. Performed By: #### L [id number], L100.0100 #### [facility] [address] [place], [address] Internal Medicine Office Vis donovan 11-23-2024 Internal Medicine Office Visit [facility] [address] [place] [address] [place] [address] OFFICE VISIT Date of Service: 11/23/24 MR#: [id number] Acct: [id number] Name: BALJIT GERMAN Rep #: [id number] : 1970 Provider: Dr. Erika nur MD Age/Sex: 54/F Location: [facility] [place] Status: Signed Intake Vital Signs 11/07/24 14:13 11/23/24 09:45 Height 5 ft 4 in 5 ft 4 in Weight: 266 lb 4 oz BMI 45.7 BP 132/82 H Blood Pressure Location Lt brachial Position Sitting Respiration 16 Pulse 83 Pulse Source Monitor Temp 96.7 F L Temp Source Temporal Pulse Oximetry (%) 93 Oxygen Delivery Method room air Intake Visit Reasons: SWELLING ALL OVER Chief Complaint: swelling all over 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 Accompanied by: Self Is patient in pain?: No Allergies codeine Allergy (Verified 11/23/24 09:40) Itching lisinopril Allergy (Verified 11/23/24 09:40) Angioedema Medications ???Medication ???Instructions ???Recorded ???Confirmed ???Type acetaminophen 500 mg tablet 500 - 1,000 mg (1 - 2 x 500 mg) PO 12/18/21 11/23/24 Rx (Tylenol Extra Strength) Q6H PRN pain #60 tabs conjugated estrogens 0.9 mg tablet 0.9 mg PO DAILY #90 tabs 5 11/23/24 Rx levothyroxine 112 mcg tablet See Rx Instructions .Route 5 11/23/24 Rx .COMPLEX #90 tabs duloxetine 30 mg capsule,delayed 60 mg PO BID 09/28/24 11/23/24 His tory release (Cymbalta) omeprazole 40 mg capsule,delayed 40 mg PO QDAY #90 caps 09/28/24 Rx release pregabalin 75 mg capsule 100 mg PO BID 09/28/24 11/23/24 Hi story amlodipine 10 mg tablet See Rx Instructions .Route 5 11/23/24 Rx .COMPLEX #90 tabs hydrochlorothiazide 12.5 mg tablet See Rx Instructions .Route 11/0211/23/24 Rx .COMPLEX #90 tabs cholecalciferol (vitamin D3) 25 25 mcg PO QDAY 11/07/24 11/23/24 H istory mcg (1,000 unit) capsule garlic 300 mg capsule 300 mg PO QDAY 11/07/24 11/23/24 H istory [facility] Medical History (Updated 11/23/24 @ 12:[address] Erika Reynolds MD) Fatigue Constipation Bloating Bilateral lower extremity edema Dyspnea Helicobacter pylori gastritis Dark stools Viral syndrome Nausea Malaise and fatigue Dermatitis Borderline type 2 diabetes mellitus Morbid obesity Tear of medial meniscus of right knee Left wrist pain Right knee pain Thyromegaly Ear discomfort Post-menopausal Alcohol use History of steroid therapy Thyroid disease Back pain History of pain when walking History of edema Normal stress echocardiogram History of echocardiogram Cardiology follow-up encounter Pre-op evaluation Prediabetes Generalized anxiety disorder Adjustment disorder Vitamin D deficiency Wears partial dentures Wears glasses Loose, teeth Substance abuse Marijuana use Depression Hypothyroid Arthritis Gastric reflux Smoker Upper respiratory infection Exposure to COVID-19 virus Suspected COVID-19 virus infection Hypersomnolence Chronic back pain Urticaria Anxiety Excessive somnolence disorder Hypertension Hypothyroidism (acquired) Abnormal EKG ADHD (attention deficit hyperactivity disorder) Labyrinthitis Vertigo Surgical History Status post arthroscopic surgery of left knee Hx of tooth extraction Hx of wisdom tooth extraction History of bilateral carpal tunnel release History of appendectomy History of hysterectomy History of tubal ligation Family History Sister , of [place] CAD (coronary artery disease) Myocardial infarction Sudden cardiac Father Pancreatic cancer Social History Smoking Status: Current every day smoker tobacco type: cigarettes Tobacco: How many years used: 30 alcohol intake: current alcohol intake frequency: holidays/special occasions only substance use type: marijuana what type of physical activity do you participate in: none HPI HPI Chief Complaint: swelling all over Details: BALJIT GERMAN, is a 54-year-old female presenting with abdominal bloating and fatigue. The abdominal bloating began approximately a week ago and is described as a sensation of swelling and fullness, with the patient feeling as though there is movement within her abdomen, similar to movements experienced during . The bloating has been persistent, and the patient reports difficulty fitting into her clothes due to abdominal distension. The patient has a history of Helicobacter pylori infection, for which she received treatment, but symptoms of bloating persisted post-treatment. She reports constipation, with infrequent bowel movements and minimal stool passage over the past few days. (more content not included)... Normal [facility] Thyroid Stim Hormone (TSH)on 11-23-2024 TSH 6.680 uIU/mL High 0.300-4.200 [facility] Comment on above: Performed By: #### L 501.9520, L100.0100 #### [facility] Laboratory [address] [facility] [place], [address] L/S Spine Min 4 Viewson 10-17 L/S Spine Min 4 Views [facility] Imaging Services [address] [place] [address] L/S Spine Min 4 Views MR#: [id number] Acct: [id number] Name: BALJIT GERMAN Rep #: [id number] : 1970 F 54 From: Vinay trevizo MD PCP: Dr. Erika Reynolds MD Status: DEP AMB Study: L/S Spine Min 4 Views Date of Exam: 11/07/24 Exam# [id number] Ordering Dr: Alexa Sherwood PROCEDURE: L/S SPINE MIN 4 VIEWS 11/07/2024 REASON FOR EXAM: BACK PAIN TECHNIQUE: L/S SPINE MIN 4 VIEWS COMPARISON: None. FINDINGS: Grade 1 anterolisthesis of L5 on S1. Grade 1 anterolisthesis of L4 on L5. No evidence of instability on flexion/extension images. Exaggerated lumbar lordosis. Mild levoscoliosis apex at L3. There are diffuse spondylotic changes. Findings are demonstrated to by diffuse disc space narrowing, osteophyte formation and degenerative endplate sclerosis. There is diffuse facet joint arthropathy with secondary bilateral neural foramina narrowing. No fracture or dislocation is seen. No aggressive lytic or blastic bony lesion is noted. RAD/L/S Spine Min 4 Views IMPRESSION: Grade 1 anterolisthesis of L5 on S1. Grade 1 anterolisthesis of L4 on L5. No evidence of instability on flexion/extension images. Exaggerated lumbar lordosis. Mild levoscoliosis apex at L3. Reading Location: [place] [address] CC: TARYN Johnson; Dr. Erika Reynolds MD Sieve Repairer: Signed Normal [facility] Orthopedic Visit Reporton Orthopedic Visit Report [facility] [address] [place] [address] 5 [place] [address] OFFICE VISIT Date of Service: 11/07/24 MR#: [id number] Acct: [id number] Name: BALJIT GERMAN Rep #: [id number] : 1970 Provider: TARYN Johnson Age/Sex: 54/F Location: [facility] [place].CARLIE Status: Signed with Addenda ADDENDUM by TARYN Johnson on 11/24/24 at 1528 Assessment and Plan Assessment and Plan (1) Lumbar stenosis with neurogenic claudication: Status: Acute (2) Spondylolisthesis, lumbar region: Status: Chronic Orders: Orders L/S Spine Min 4 Views 11/07/24 M54.9 - Dorsalgia, unspecified Spine Lumbar (Routine) 11/07/24 M43.16 - Spondylolisthesis, lumbar region, M48.062 - Spinal stenosis, lumbar region with neurogenic claudication Plan Patient has been doing at home exercises for 30 minutes per day of core and back strengthening with no improvement. She has been doing this for the last 4-6 weeks with no benefit. 11/24/24 1528 Date Alexa Sherwood cc: Dr. Erika Reynolds MD * Signed Intake Vital Signs 09/28/24 14:50 11/04/24 10:58 Height 5 ft 4 in 5 ft 4 in Intake Visit Reasons: LUMBAR SPINE Chief Complaint: lumbar spine Is patient in pain?: Yes (lumbar spine) Pain scale (1-10): 7 Allergies codeine Allergy (Verified 11/07/24 14:06) Itching lisinopril Allergy (Verified 11/07/24 14:06) Angioedema Medications ???Medication ???Instructions ???Recorded ???Confirmed ???Type acetaminophen 500 mg tablet 500 - 1,000 mg (1 - 2 x 500 mg) PO 12/18/21 11/07/24 Rx (Tylenol Extra Strength) Q6H PRN pain #60 tabs conjugated estrogens 0.9 mg tablet 0.9 mg PO DAILY #90 tabs 5 11/07/24 Rx levothyroxine 112 mcg tablet See Rx Instructions .Route 5 11/07/24 Rx .COMPLEX #90 tabs duloxetine 30 mg capsule,delayed 60 mg PO BID 09/28/24 11/07/24 His tory release (Cymbalta) omeprazole 40 mg capsule,delayed 40 mg PO QDAY #90 caps 09/28/24 Rx release pregabalin 75 mg capsule 100 mg PO BID 09/28/24 11/07/24 Hi story amlodipine 10 mg tablet See Rx Instructions .Route 5 11/07/24 Rx .COMPLEX #90 tabs hydrochlorothiazide 12.5 mg tablet See Rx Instructions .Route 11/0211/07/24 Rx .COMPLEX #90 tabs cholecalciferol (vitamin D3) 25 25 mcg PO QDAY 11/07/24 11/07/24 H istory mcg (1,000 unit) capsule garlic 300 mg capsule 300 mg PO QDAY 11/07/24 11/07/24 H istory PFSH Medical History Bilateral lower extremity edema Dyspnea Helicobacter pylori gastritis Dark stools Viral syndrome Nausea Malaise and fatigue Dermatitis Borderline type 2 diabetes mellitus Morbid obesity Tear of medial meniscus of right knee Left wrist pain Right knee pain Thyromegaly Ear discomfort Post-menopausal Alcohol use History of steroid therapy Thyroid disease Back pain History of pain when walking History of edema Normal stress echocardiogram History of echocardiogram Cardiology follow-up encounter Pre-op evaluation Prediabetes Generalized anxiety disorder Adjustment disorder Vitamin D deficiency Wears partial dentures Wears glasses Loose, teeth Substance abuse Marijuana use Depression Hypothyroid Arthritis Gastric reflux Smoker Upper respiratory infection Exposure to COVID-19 virus Suspected COVID-19 virus infection Hypersomnolence Chronic back pain Urticaria Anxiety Excessive somnolence disorder Hypertension Hypothyroidism (acquired) Abnormal EKG ADHD (attention deficit hyperactivity disorder) Labyrinthitis Vertigo Surgical History Status post arthroscopic surgery of left knee Hx of tooth extraction Hx of wisdom tooth extraction History of bilateral carpal tunnel release History of appendectomy History of hysterectomy History of tubal ligation Family History Sister , of [place] CAD (coronary artery disease) Myocardial infarction Sudden cardiac Father Pancreatic cancer Social History Smoking Status: Current every day smoker tobacco type: cigarettes Tobacco: How many years used: 30 alcohol intake: current alcohol intake frequency: holidays/special occasions only substance use type: marijuana what type of physical activity do you participate in: none HPI LUMBAR SPINE Details: This documentation accurately reflects the service provided and the decisions made by me, TARYN Johnson 11/07/24 1403. Part of today???s visit was documented by Chloe Bryant RN, acting as scribe. BALJIT GERMAN is a 54 (more content not included)... Normal [facility] Comprehensive Metabolic Prof ilon 11-04-2024 Albumin [Mass/Vol] 3.8 g/dL Normal 3.5-5.0 [facility] Comment on above: Performed By: #### L 506.0400, L3100.5055, L501.9520, L3300.1500, L501.9985, L3100.5310, L801.2600, L3300.1750, L500.4050, L509.6000 #### [facility] [address] [place], [place], [id number] Albumin/Globulin [Mass ratio] 1.3 {ratio} Normal 0.9-2.4 [facility] Comment on above: Performed By: #### L 506.0400, L3100.5055, L501.9520, L3300.1500, L501.9985, L3100.5310, L801.2600, L3300.1750, L500.4050, L509.6000 #### [facility] [address] [place], [address] ALK PHOS 113 U/L High 35-104 [facility] Comment on above: Performed By: #### L 506.0400, L3100.5055, L501.9520, L3300.1500, L501.9985, L3100.5310, L801.2600, L3300.1750, L500.4050, L509.6000 #### [facility] [address] [facility] [place], [address] ALT [Catalytic activity/Vol] 10 U/L Normal <=34 [facility] Comment on above: Performed By: #### L 506.0400, L3100.5055, L501.9520, L3300.1500, L501.9985, L3100.5310, L801.2600, L3300.1750, L500.4050, L509.6000 #### [facility] [address] [facility] [place], [address] AST [Catalytic activity/Vol] 17 U/L Normal <=31 [facility] Comment on above: Performed By: #### L 506.0400, L3100.5055, L501.9520, L3300.1500, L501.9985, L3100.5310, L801.2600, L3300.1750, L500.4050, L509.6000 #### [facility] [address] [facility] [place], [address] BUN/CRE 11.2 RATIO Normal 10-20 [facility] Comment on above: Performed By: #### L 506.0400, L3100.5055, L501.9520, L3300.1500, L501.9985, L3100.5310, L801.2600, L3300.1750, L500.4050, L509.6000 #### [facility] [address] [place], [address] Calcium [Mass/Vol] 9.0 mg/dL Normal 7.6-11.0 [facility] Comment on above: Performed By: #### L 506.0400, L3100.5055, L501.9520, L3300.1500, L501.9985, L3100.5310, L801.2600, L3300.1750, L500.4050, L509.6000 #### [facility] [address] [place], [address] Chloride [Moles/Vol] 100 mmol/L Normal 98-108 [facility] Comment on above: Performed By: #### L 506.0400, L3100.5055, L501.9520, L3300.1500, L501.9985, L3100.5310, L801.2600, L3300.1750, L500.4050, L509.6000 #### [facility] [address] [place], [address] CO2 [Moles/Vol] 26.4 mmol/L Normal 21.0-32.0 [facility] Comment on above: Performed By: #### L 506.0400, L3100.5055, L501.9520, L3300.1500, L501.9985, L3100.5310, L801.2600, L3300.1750, L500.4050, L509.6000 #### [facility] [address] [place], [address] Creatinine [Mass/Vol] 0.72 mg/dL Normal 0.70-1.20 [facility] Comment on above: Performed By: #### L 506.0400, L3100.5055, L501.9520, L3300.1500, L501.9985, L3100.5310, L801.2600, L3300.1750, L500.4050, L509.6000 #### [facility] [address] [facility] [place], [address] GAP 12 Normal 5-15 [facility] Comment on above: Performed By: #### L 506.0400, L3100.5055, L501.9520, L3300.1500, L501.9985, L3100.5310, L801.2600, L3300.1750, L500.4050, L509.6000 #### [facility] [address] [facility] [place], [address] GFR/1.73 sq M.predicted among non-blacks MDRD (S/P/Bld) [Vol rate/Area] 100 mL/min/{1.73_m2} Normal >60 [facility] Comment on above: Result Comment: mL/m in/1.73m2 CKD-EPI Creatinine Equation (2020) Performed By: #### L 506.0400, L3100.5055, L501.9520, L3300.1500, L501.9985, L3100.5310, L801.2600, L3300.1750, L500.4050, L509.6000 #### [facility] [address] [facility] [place], [address] Globulin (S) [Mass/Vol] 3.0 g/dL Normal 2.2-4.2 [facility] Comment on above: Performed By: #### L 506.0400, L3100.5055, L501.9520, L3300.1500, L501.9985, L3100.5310, L801.2600, L3300.1750, L500.4050, L509.6000 #### [facility] [address] [place], [address] Glucose [Mass/Vol] 145 mg/dL High 70-99 [facility] Comment on above: Performed By: #### L 506.0400, L3100.5055, L501.9520, L3300.1500, L501.9985, L3100.5310, L801.2600, L3300.1750, L500.4050, L509.6000 #### [facility] [address] [place], [place], [id number] Potassium [Moles/Vol] 3.7 mmol/L Normal 3.3-5.1 [facility] Comment on above: Performed By: #### L 506.0400, L3100.5055, L501.9520, L3300.1500, L501.9985, L3100.5310, L801.2600, L3300.1750, L500.4050, L509.6000 #### [facility] [address] [place], [address] (257) Sodium [Moles/Vol] 138 mmol/L Normal 133-145 [facility] Comment on above: Performed By: #### L 506.0400, L3100.5055, L501.9520, L3300.1500, L501.9985, L3100.5310, L801.2600, L3300.1750, L500.4050, L509.6000 #### [facility] [address] [place], [place], [id number] (102) T BILI < 0.15 Normal 0.00-1.30 [facility] Comment on above: Performed By: #### L 506.0400, L3100.5055, L501.9520, L3300.1500, L501.9985, L3100.5310, L801.2600, L3300.1750, L500.4050, L509.6000 #### [facility] [address] [place], [place], [id number] ([address] T PROT 6.9 g/dL Normal 5.9-8.4 [facility] Comment on above: Performed By: #### L 506.0400, L3100.5055, L501.9520, L3300.1500, L501.9985, L3100.5310, L801.2600, L3300.1750, L500.4050, L509.6000 #### [facility] [address] [place], [address] Urea nitrogen [Mass/Vol] 8 mg/dL Normal 4- [facility] Comment on above: Performed By: #### L 506.0400, L3100.5055, L501.9520, L3300.1500, L501.9985, L3100.5310, L801.2600, L3300.1750, L500.4050, L509.6000 #### [facility] [address] [place], [place], [id number] D-Dimer Quantitative (DVT/PE )on 11-04-2024 D-DIMER QUANT 0.29 FEU/ug/m Normal 0.27-0.49 [facility] Comment on above: Result Comment: NORM AL D-Dimer level (<0.50) indicates no DVT or PE. Performed By: #### L 506.0400, L3100.5055, L501.9520, L3300.1500, L501.9985, L3100.5310, L801.2600, L3300.1750, L500.4050, L509.6000 #### [facility] [address] [place], [place], [id number] Internal Medicine Office Vis iton 11-04-2024 Internal Medicine Office Visit [facility] [address] [place], [place] [address] OFFICE VISIT Date of Service: 11/04/24 MR#: [id number] Acct: [id number] Name: BALJIT GERMAN Rep #: [id number] : 1970 Provider: Dr. Erika nur MD Age/Sex: 54/F Location: [facility] [place].[facility]IM Status: Signed Intake Vital Signs 09/28/24 14:50 11/04/24 10:58 Height 5 ft 4 in 5 ft 4 in Weight: 276 lb BMI 47.3 BP 138/86 H Blood Pressure Location Lt brachial Position Sitting Respiration 18 Pulse Source Palpation Temp 97.8 F Temp Source Temporal Comment unable to obtain pulse oximetry due to artificial nails too long Intake Visit Reasons: SWELLING Chief Complaint: Lower extremity swelling Is patient in pain?: Yes (6 bilateral legs ) Allergies codeine Allergy (Verified 11/04/24 10:57) Itching lisinopril Allergy (Verified 11/04/24 10:57) Angioedema Medications ???Medication ???Instructions ???Recorded ???Confirmed ???Type acetaminophen 500 mg tablet 500 - 1,000 mg (1 - 2 x 500 mg) PO 12/18/21 11/04/24 Rx (Tylenol Extra Strength) Q6H PRN pain #60 tabs conjugated estrogens 0.9 mg tablet 0.9 mg PO DAILY #90 tabs 5 11/04/24 Rx levothyroxine 112 mcg tablet See Rx Instructions .Route 5 11/04/24 Rx .COMPLEX #90 tabs duloxetine 30 mg capsule,delayed 60 mg PO BID 09/28/24 11/04/24 His tory release (Cymbalta) omeprazole 40 mg capsule,delayed 40 mg PO QDAY #90 caps 09/28/24 Rx release pregabalin 75 mg capsule 100 mg PO BID 09/28/24 11/04/24 Hi story amlodipine 10 mg tablet See Rx Instructions .Route 5 11/04/24 Rx .COMPLEX #90 tabs hydrochlorothiazide 12.5 mg tablet See Rx Instructions .Route 11/0211/04/24 Rx .COMPLEX #90 tabs PFSH Medical History (Updated 11/04/24 @ 11:[address] Erika Reynolds MD) Bilateral lower extremity edema Dyspnea Helicobacter pylori gastritis Dark stools Viral syndrome Nausea Malaise and fatigue Dermatitis Borderline type 2 diabetes mellitus Morbid obesity Tear of medial meniscus of right knee Left wrist pain Right knee pain Thyromegaly Ear discomfort Post-menopausal Alcohol use History of steroid therapy Thyroid disease Back pain History of pain when walking History of edema Normal stress echocardiogram History of echocardiogram Cardiology follow-up encounter Pre-op evaluation Prediabetes Generalized anxiety disorder Adjustment disorder Vitamin D deficiency Wears partial dentures Wears glasses Loose, teeth Substance abuse Marijuana use Depression Hypothyroid Arthritis Gastric reflux Smoker Upper respiratory infection Exposure to COVID-19 virus Suspected COVID-19 virus infection Hypersomnolence Chronic back pain Urticaria Anxiety Excessive somnolence disorder Hypertension Hypothyroidism (acquired) Abnormal EKG ADHD (attention deficit hyperactivity disorder) Labyrinthitis Vertigo Surgical History Status post arthroscopic surgery of left knee Hx of tooth extraction Hx of wisdom tooth extraction History of bilateral carpal tunnel release History of appendectomy History of hysterectomy History of tubal ligation Family History Sister , of [place] CAD (coronary artery disease) Myocardial infarction Sudden cardiac Father Pancreatic cancer Social History Smoking Status: Current every day smoker tobacco type: cigarettes Tobacco: How many years used: 30 alcohol intake: current alcohol intake frequency: holidays/special occasions only substance use type: marijuana what type of physical activity do you participate in: none HPI HPI Chief Complaint: Lower extremity swelling Details: BALJIT GERMAN, is a 54-year-old female presenting with bilateral lower extremity edema and dyspnea. The edema has been present for about a week, both lower extremities but right greater than left, worsening by the end of the day and slightly reducing overnight. The patient denies any recent travel or prolonged sitting that could have contributed to the edema. The patient reports experiencing dyspnea, particularly when performing activities such as walking to the bathroom, which is not typical for her. She denies orthopnea or the need for additional pillows at night. The patient has noted significant weight gain despite a reduction in food intake, although she continues to consume candy. She expresses concern about her increasing size and feels as though she is swelling up. The patient has a history of low potassium levels and was previously on potassium supplements. She is currently taking amlodipine 10 mg, which ma (more content not included)... Normal [facility] L503.7505on 11-04-2024 proBNP < 36 Normal <=900 [facility] Comment on above: Result Comment: Hear t Failure Unlikely: < 300 pg/mL Heart Failure Likely < 50 Years: > 450 pg/mL 50-75 Years: > 900 pg/mL >75 Years: > 1800 pg/mL Performed By: #### L 506.0400, L3100.5055, L501.9520, L3300.1500, L501.9985, L3100.5310, L801.2600, L3300.1750, L500.4050, L509.6000 #### [facility] [address] [place], [address] Thyroid Stim Hormone (TSH)on 11-04-2024 TSH 6.890 uIU/mL High 0.300-4.200 [facility] Comment on above: Performed By: #### L 506.0400, L3100.5055, L501.9520, L3300.1500, L501.9985, L3100.5310, L801.2600, L3300.1750, L500.4050, L509.6000 #### [facility] [address] [place], [place], [id number] Inital Evaluation (1) - PTon 10-11-2024 Inital Evaluation (1) - PT [facility] Physical Therapy [facility] [address] [place] [address] [address] [place] [address] / REHABILITATION SERVICES INITIAL EVALUATION MR#: [id number] Acct: [id number] Name: BALJIT GERMAN Rep #: [id number] : 1970 54 From: Gato Mehta DPT Referring Dr.: Dr. Erika Reynolds MD Status: [facility] Insurance: [facility] SEL[employer] PAY INSURANCE Patient's Visit Information Visit Information Visit Information: BALJIT GERMAN is a 54 year old F referred to Physical Therapy by Dr. Erika Reynolds MD with a diagnosis of Lumbar spondylolisthesis. Date of Evaluation: 10/11/24 Physical Therapist: Gato Mehta DPT Visit Plan Frequency: 2x /Week Duration: 4 Weeks Plan: IN aquatic setting: Core and hip strengthening, dynamic lumbar stability exercises. Deep hang Subjective Subjective: Pt. is here today for her initial evaluation with diagnosis of spondylolisthesis of lumbar region. Pt. reports having pain for 1-2 years with no mech of injury. Increased pain: walking and standing for greater than 10 minutes, lifting. Decreased pain: bending fwrd. Pt. reports minimal pain with sitting. Pt. denies N/T in either LE. Pt. reports no LE weakness as well. She repots not being able to complete desired activities due to higher levels of pain with walking over 10min. She does get injections and is planning to have injection in early october. Pain Lumbar spine: Pain Intensity (Out of 10): 1 Pain Intensity Range: 0 and 8 Objective Objective: POSTURE: pt. tends to be in a slight anterior pelvic tilt in stance. PALPATION: Pt. has mild tenderness along lumbar spine. + spring testing at L3-L5. NEURO: normal throughout. ROM: LUMBAR SPINE: flexion nil loss NE, ext mod/max loss increase NW, SB min loss bilatl increase NW, rotation min loss bilat increase NW. Pt. has normal HS length bilat. Tight in B hip flexors. MMT: Pt. has no myotomal weakness noted. poor core strength. B hip strength 4/5 throughout. GAIT: Pt. has a guarded posture with decreased step length and decreased arm swing. STAIRS: step to pattern with 2 HR. Balance/Special Test Scores Oswestry Low Back Score: 25 Goals Goal 1:: LTG: Pt. to be I with HEP. Goal Time Frame: 4-6 Weeks Goal 2:: LTG: pt. to have increased core and B hip strength by 1/2 grade throughout. Goal Time Frame: 4-6 Weeks Goal 3:: LTG: pt. to be able to walk for 30+ minutes Goal 4:: LTG: Pt. report no radicular symptoms. Goal Time Frame: 4-6 Weeks Rehabilitation Potential Physical Therapy Diagnosis: Pt. has signs and symptoms consistent with Lumbar spondylolisthesis. Pt. has marked core weakness and increased pain. Pt. would benefit from PT to address the above limitations progressing back to previous levels of function. Rehabilitation Potential: Good Anticipated Interventions Patient/Client Instruction: Educate patient on: Condition, Plan of Care, Risk Factors and Benefits of Fitness Program For the Purpose of:: To improve decision making, To facilitate caregiver knowledge, To improve self management, To prevent re-injury and To improve ability to perform tasks related to life management Therapeutic Exercise to Include: Strength training, Endurance training, Postural training, Flexibilty training and In an aquatic setting For the Purpose of:: To decrease pain, To increase ROM, To improve nutrient delivery to tissue, To increase oxygenation perfusion, To improve muscle performance and motor function, To improve ability to perform ADL's, To increase tolerance to activity/condition/posi tion, To improve gait and locomotor functions, To improve health of tissue and To increase flexibility/ROM Text: Thank you for the opportunity to evaluate your patient. For Medicare and Medicare HMO plans, please review the plan of care and approve it. It will need to be FAXED BACK to us at [phone] for Medicare purposes. For Medicare only, by signing this I certify the plan of care. Please let me know if there are questions or concerns regarding this plan of care. Physician Signature: Date: 10/11/24 1535 CC: Dr. Erika Reynolds MD CLS Signed Normal [facility] SCRN MAMM (CAD)W/NATE BILATo n 10-11-2024 SCRN MAMM (CAD)W/NATE BILAT [facility] Imaging Services [address], [place] [address] SCRN MAMM (CAD)W/NATE BILAT MR#: [id number] Acct: [id number] Name: BALJIT GERMAN Rep #: [id number] : 1970 F 54 From: Kiesha Sanchez i, MD PCP: Dr. Erika Reynolds MD Status: [facility] Study: SCRN MAMM (CAD)W/NATE BILAT Date of Exam: 09/16 12/09 Exam# [id number] Ordering Dr: Danial Cox PA EXAM: SCRN MAMM (CAD)W/NATE BILAT DATE: 10/11/2024 CLINICAL HISTORY: F, Age 54 y/o , SCREENING BREAST CANCER RISK ASSESSMENT: Not reported TECHNIQUE: Bilateral screening digital breast tomosynthesis with 2D and 3D images. Computer aided detection. COMPARISON: Prior exam(s) were compared FINDINGS: TISSUE DENSITY: The breast tissue is heterogenously dense, which may obscure small masses. Bilateral Breast Mammographic Findings: No suspicious masses, calcifications or other abnormalities are identified. BI/SCRN MAMM (CAD)W/NATE BILAT IMPRESSION: OVERALL FINAL ASSESSMENT: BIRADS 1 NEGATIVE RECOMMENDATION: Routine annual follow-up in 1 Year A letter with findings and recommendations will be mailed to the patient. Reading Location: [id number] CC: Dr. Erika Reynolds MD; TARYN Rodriguez Sieve Repairer: Signed Normal [facility] Internal Medicine Office Vis itosanthosh 09-28-2024 Internal Medicine Office Visit [facility] [place] [address] [place] [address] OFFICE VISIT Date of Service: 09/28/24 MR#: [id number] Acct: [id number] Name: BALJIT GERMAN Rep #: [id number] : 1970 Provider: Dr. Erika nur MD Age/Sex: 54/F Location: [facility] Status: Signed Intake Vital Signs 06/27/24 15:04 08/18/24 15:18 09/28/24 14:50 Height 5 ft 4 in 5 ft 4 in 5 ft 4 in Weight: 263 lb BMI 45.1 BP 126/82 H Blood Pressure Location Lt brachial Position Sitting Respiration 18 Pulse 88 Pulse Source Palpation Comment unable to obtain pulse oximetry due to pt's artificial nails Intake Visit Reasons: 3 M FU Chief Complaint: 3 M FU Is patient in pain?: No Allergies codeine Allergy (Verified 09/28/24 14:50) Itching lisinopril Allergy (Verified 09/28/24 14:50) Angioedema Medications ???Medication ???Instructions ???Recorded ???Confirmed ???Type acetaminophen 500 mg tablet 500 - 1,000 mg (1 - 2 x 500 mg) PO 12/18/21 09/28/24 Rx (Tylenol Extra Strength) Q6H PRN pain #60 tabs amlodipine 10 mg tablet See Rx Instructions .Route 5 09/28/24 Rx .COMPLEX #90 tabs hydrochlorothiazide 12.5 mg tablet See Rx Instructions .Route 06/2709/28/24 Rx .COMPLEX #90 tabs lidocaine 4 % topical patch See Rx Instructions .Route 5 09/28/24 Rx .COMPLEX #60 patches conjugated estrogens 0.9 mg tablet 0.9 mg PO DAILY #90 tabs 5 09/28/24 Rx levothyroxine 112 mcg tablet See Rx Instructions .Route 5 09/28/24 Rx .COMPLEX #90 tabs amoxicillin PO 09/28/24 History amoxicillin 500 mg tablet 1,000 mg (2 x 500 mg) PO BID 14 09/28/24 Rx days #56 tabs clarithromycin 500 mg tablet 500 mg PO BID 14 days #28 tabs 09/28/24 Rx duloxetine 30 mg capsule,delayed 60 mg PO BID 09/28/24 History release (Cymbalta) omeprazole 40 mg capsule,delayed 40 mg PO QDAY #90 caps 09/28/24 Rx release pregabalin 75 mg capsule 100 mg PO BID 09/28/24 09/28/24 [facility] Medical History (Updated 09/28/24 @ 16:[address] Erika Reynolds MD) Helicobacter pylori gastritis Dark stools Viral syndrome Nausea Malaise and fatigue Dermatitis Borderline type 2 diabetes mellitus Morbid obesity Tear of medial meniscus of right knee Left wrist pain Right knee pain Thyromegaly Ear discomfort Post-menopausal Alcohol use History of steroid therapy Thyroid disease Back pain History of pain when walking History of edema Normal stress echocardiogram History of echocardiogram Cardiology follow-up encounter Pre-op evaluation Prediabetes Generalized anxiety disorder Adjustment disorder Vitamin D deficiency Wears partial dentures Wears glasses Loose, teeth Substance abuse Marijuana use Depression Hypothyroid Arthritis Gastric reflux Smoker Upper respiratory infection Exposure to COVID-19 virus Suspected COVID-19 virus infection Hypersomnolence Chronic back pain Urticaria Anxiety Excessive somnolence disorder Hypertension Hypothyroidism (acquired) Abnormal EKG ADHD (attention deficit hyperactivity disorder) Labyrinthitis Vertigo Surgical History Status post arthroscopic surgery of left knee Hx of tooth extraction Hx of wisdom tooth extraction History of bilateral carpal tunnel release History of appendectomy History of hysterectomy History of tubal ligation Family History Sister , of [place] CAD (coronary artery disease) Myocardial infarction Sudden cardiac Father Pancreatic cancer Social History Smoking Status: Current every day smoker tobacco type: cigarettes Tobacco: How many years used: 30 alcohol intake: current alcohol intake frequency: holidays/special occasions only substance use type: marijuana what type of physical activity do you participate in: none HPI HPI Chief Complaint: 3 M FU Details: BALJIT GERMAN, is a 54 F who presents to the office today for follow-up of her chronic conditions. Also has some concerns. Recently had stool testing which was positive for H. pylori. She has had increased reflux and bloating. Also now reports dark stools. A prescription for amoxicillin, clarithromycin and Vonoprazan was sent however, she is yet to start. Vonoprazan was not approved by her insurance. Does not believe that she has had poor tolerance to Prilosec in the past. She states that she cannot find her prescriptions for amoxicillin and clarithromycin and would like a new order sent. History of borderline diabetes, A1c is at 6.3. Did not tolerate metformin so discontinued. A1c slightly higher from 6.2. Ot (more content not included)... Normal [facility] Ova and Parasites 8623on OP OVA AND PARASITES EX AM, ROUTINE These results were obtained using wet preparation(s) and trichrome stained smear. This test does not include testing for Crytosporidium parvum, Cyclospora, or Microsporidia. One negative specimen does not rule out the possibility of a parasitic infection. TESTING PERFORMED AT [facility]. ORIGINAL REPORT ON FILE IN LAB CONTAINS ADDITIONAL TEST SITE INFORMATION. Ova/Parasite Exam NO OVA, CYSTS, OR PARASITES FOUND. Normal [facility] Comment on above: Performed By: #### L 501.9520, L100.0100 #### [facility] Laboratory [address] [place], [place], [address] H. PYLORI STOOL AGon 025 H PYLORI STL AG Positive Abnormal Negative [facility] Comment on above: Result Comment: Perf ormed at: [facility] [id number] Physical Therapy Manager: Artie Rosas PhD, Phone: [phone] Performed By: #### L [id number], L100.0100 #### [facility] Laboratory [address] [place], [place], [address] Internal Medicine Office Vis iton 08-18-2024 Internal Medicine Office Visit [facility] [place] [address] [place] [address] OFFICE VISIT Date of Service: 08/18/24 MR#: [id number] Acct: [id number] Name: BALJIT GERMAN Rep #: [id number] : 1970 Provider: TARYN Rodriguez Age/Sex: 54/F Location: [facility] [place] [facility] Status: Signed Intake Vital Signs 07/22/24 15:35 08/18/24 15:18 Height 5 ft 4 in 5 ft 4 in Weight: 254 lb 262 lb BMI 43.6 44.9 BP 118/80 144/72 H Blood Pressure Location Rt brachial Lt brachial Position Sitting Sitting Respiration 16 18 Pulse 81 84 Pulse Source Monitor Monitor Temp 97.4 F L 98.0 F Temp Source Temporal Temporal Pulse Oximetry (%) 94 98 Oxygen Delivery Method room air room air Intake Visit Reasons: ACUTE -POSSIBLE PARASITE? Chief Complaint: ACUTE-POSSIBLE PARASITE? Is patient in pain?: No Allergies codeine Allergy (Verified 08/18/24 15:16) Itching lisinopril Allergy (Verified 08/18/24 15:16) Angioedema Medications ???Medication ???Instructions ???Recorded ???Confirmed ???Type acetaminophen 500 mg tablet 500 - 1,000 mg (1 - 2 x 500 mg) PO 12/18/21 08/18/24 Rx (Tylenol Extra Strength) Q6H PRN pain #60 tabs ashakshatdha extract 120 mg capsule 120 mg PO DAILY 10/16/22 5 History duloxetine 30 mg capsule,delayed 30 mg PO BID #60 caps 10/27/2308/09 Rx release (Cymbalta) amlodipine 10 mg tablet See Rx Instructions .Route 5 08/18/24 Rx .COMPLEX #90 tabs hydrochlorothiazide 12.5 mg tablet See Rx Instructions .Route 06/2708/18/24 Rx .COMPLEX #90 tabs lidocaine 4 % topical patch See Rx Instructions .Route 5 08/18/24 Rx .COMPLEX #60 patches pregabalin 75 mg capsule 75 mg PO BID 06/27/24 08/18/24 His tory conjugated estrogens 0.9 mg tablet 0.9 mg PO DAILY #90 tabs 5 08/18/24 Rx levothyroxine 112 mcg tablet See Rx Instructions .Route 5 08/18/24 Rx .COMPLEX #90 tabs Nurse's Note: pt reports that she has seen a small white thing in her stool that she noticed this started last thursday. pt reports she had one episode of loose stool and then it switched to constipation. pt has complaint of her skin changing color, and foul smell beneath ABD folds. [facility] Medical History Viral syndrome Nausea Malaise and fatigue Dermatitis Borderline type 2 diabetes mellitus Morbid obesity Tear of medial meniscus of right knee Left wrist pain Right knee pain Thyromegaly Ear discomfort Post-menopausal Alcohol use History of steroid therapy Thyroid disease Back pain History of pain when walking History of edema Normal stress echocardiogram History of echocardiogram Cardiology follow-up encounter Pre-op evaluation Prediabetes Generalized anxiety disorder Adjustment disorder Vitamin D deficiency Wears partial dentures Wears glasses Loose, teeth Substance abuse Marijuana use Depression Hypothyroid Arthritis Gastric reflux Smoker Upper respiratory infection Exposure to COVID-19 virus Suspected COVID-19 virus infection Hypersomnolence Chronic back pain Urticaria Anxiety Excessive somnolence disorder Hypertension Hypothyroidism (acquired) Abnormal EKG ADHD (attention deficit hyperactivity disorder) Labyrinthitis Vertigo Surgical History Status post arthroscopic surgery of left knee Hx of tooth extraction Hx of wisdom tooth extraction History of bilateral carpal tunnel release History of appendectomy History of hysterectomy History of tubal ligation Family History Sister , of [place] CAD (coronary artery disease) Myocardial infarction Sudden cardiac Father Pancreatic cancer Social History Smoking Status: Current every day smoker tobacco type: cigarettes Tobacco: How many years used: 30 alcohol intake: current alcohol intake frequency: holidays/special occasions only substance use type: marijuana what type of physical activity do you participate in: none HPI HPI Chief Complaint: ACUTE-POSSIBLE PARASITE? Details: BALJIT GERMAN, is a 54 F who presents to the office today for possible parasite. Patient states that about a week ago she states that she saw something that was white and thought it was a very big contrast from the rest of the stool. She states that the stools have been sort of back and forth between constipation and then diarrhea. She states that she noticed the white area in the stool once and then maybe another time or two but it wasn't as obvious to her. She continues to have feelings of itchy skin / dermatitis. She did se dermatology who states that everything was comp (more content not included)... Normal [facility] Internal Medicine Office Vis iton 07-22-2024 Internal Medicine Office Visit [facility] [address] [place], [place] [address] OFFICE VISIT Date of Service: 07/22/24 MR#: [id number] Acct: [id number] Name: BALJIT GERMAN Rep #: [id number] : 1970 Provider: Dr. Erika nur MD Age/Sex: 54/F Location: [facility] [facility] Status: Signed Intake Vital Signs 06/27/24 15:04 07/21/24 22:25 07/22/24 15:35 Height 5 ft 4 in 5 ft 4 in 5 ft 4 in Weight: 254 lb BMI 43.6 BP 118/80 Blood Pressure Location Rt brachial Position Sitting Respiration 16 Pulse 81 Pulse Source Monitor Temp 97.4 F L Temp Source Temporal Pulse Oximetry (%) 94 Oxygen Delivery Method room air Intake Visit Reasons: POSSIBLE MED REACTION/RASH Chief Complaint: rash. 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 Accompanied by: Self Is patient in pain?: No Allergies codeine Allergy (Verified 07/22/24 15:32) Itching lisinopril Allergy (Verified 07/22/24 15:32) Angioedema Medications ???Medication ???Instructions ???Recorded ???Confirmed ???Type acetaminophen 500 mg tablet 500 - 1,000 mg (1 - 2 x 500 mg) PO 12/18/21 07/22/24 Rx (Tylenol Extra Strength) Q6H PRN pain #60 tabs SEA ELIZONDO GEL 1 tsp PO DAILY 10/16/22 07/22/24 H istory ashwagandha extract 120 mg capsule 120 mg PO DAILY 10/16/22 5 History duloxetine 30 mg capsule,delayed 30 mg PO BID #60 caps 10/27/2312/09 Rx release (Cymbalta) amlodipine 10 mg tablet See Rx Instructions .Route 5 07/22/24 Rx .COMPLEX #90 tabs hydrochlorothiazide 12.5 mg tablet See Rx Instructions .Route 06/2707/22/24 Rx .COMPLEX #90 tabs lidocaine 4 % topical patch See Rx Instructions .Route 5 07/22/24 Rx .COMPLEX #60 patches metformin 500 mg tablet,extended 500 mg PO BID #120 tabs 06/27/24 0 07/22/24 Rx release 24 hr pregabalin 75 mg capsule 75 mg PO BID 06/27/24 07/22/24 His tory conjugated estrogens 0.9 mg tablet 0.9 mg PO DAILY #90 tabs 5 Rx levothyroxine 112 mcg tablet See Rx Instructions .Route 5 Rx .COMPLEX #90 tabs Have you fallen in the past year?: No Nurse's Note: rash john legs and arms and stomach and possibly face and feeling nauseated and just feeling yucky dizzy and lightheaded [facility] Medical History (Updated 07/22/24 @ 16:[address] Erika Reynolds MD) Viral syndrome Nausea Malaise and fatigue Dermatitis Borderline type 2 diabetes mellitus Morbid obesity Tear of medial meniscus of right knee Left wrist pain Right knee pain Thyromegaly Ear discomfort Post-menopausal Alcohol use History of steroid therapy Thyroid disease Back pain History of pain when walking History of edema Normal stress echocardiogram History of echocardiogram Cardiology follow-up encounter Pre-op evaluation Prediabetes Generalized anxiety disorder Adjustment disorder Vitamin D deficiency Wears partial dentures Wears glasses Loose, teeth Substance abuse Marijuana use Depression Hypothyroid Arthritis Gastric reflux Smoker Upper respiratory infection Exposure to COVID-19 virus Suspected COVID-19 virus infection Hypersomnolence Chronic back pain Urticaria Anxiety Excessive somnolence disorder Hypertension Hypothyroidism (acquired) Abnormal EKG ADHD (attention deficit hyperactivity disorder) Labyrinthitis Vertigo Surgical History Status post arthroscopic surgery of left knee Hx of tooth extraction Hx of wisdom tooth extraction History of bilateral carpal tunnel release History of appendectomy History of hysterectomy History of tubal ligation Family History Sister , of [place] CAD (coronary artery disease) Myocardial infarction Sudden cardiac Father Pancreatic cancer Social History Smoking Status: Current every day smoker tobacco type: cigarettes Tobacco: How many years used: 30 alcohol intake: current alcohol intake frequency: holidays/special occasions only substance use type: marijuana what type of physical activity do you participate in: none HPI HPI Chief Complaint: rash. Feeling unwell Details: BALJIT GERMAN, is a 54 F who presents to the office today for an acute visit. She reports a 4-day history of feeling unwell. Nausea, abdominal discomfort and change in skin color. Was at emergency room yesterday due to chest heaviness and workup with no acute concerns. No known sick contact however, she states that it has been started feeling unwell today as well. ROS Const Constitutional: No body ache, excessive sweating, fatigue, fever(s), frequent falls, headache(s), snoring, weakness, weight change, sleep problems or change in appetite Eye (more content not included)... Normal [facility] L499.0042on 07-22-2024 Trop T High Sen < 6 Normal <=14 [facility] Comment on above: Performed By: #### L 501.9520, L100.0100 #### [facility] [address] [place], [address] L499.0043on 07-22-2024 Trop T High Sen Normal <=14 [facility] Comment on above: Result Comment: Canc elled via OM: Order cancelled - Patient discharged Performed By: #### L 506.0400, L3100.5055, L501.9520, L3300.1500, L501.9985, L3100.5310, L801.2600, L3300.1750, L500.4050, L509.6000 #### [facility] [address] [place], [address] Liver Profileon 07-22-2024 Albumin [Mass/Vol] 4.1 g/dL Normal 3.5-5.0 [facility] Comment on above: Performed By: #### L 500.3400 ####[facility] [address] [place], [address] ALK PHOS 99 U/L Normal 35-104 [facility] Comment on above: Performed By: #### L 500.3400 ####[facility] [address] [place], [address] ALT [Catalytic activity/Vol] 15 U/L Normal <=34 [facility] Comment on above: Performed By: #### L 500.3400 ####[facility] [address] [place], [address] AST [Catalytic activity/Vol] 14 U/L Normal <=31 [facility] Comment on above: Performed By: #### L 500.3400 ####[facility] [address] [place], [address] Bilirubin [Mass/Vol] 0.21 mg/dL Normal 0.00-1.30 [facility] Comment on above: Performed By: #### L 500.3400 ####[facility] [address] [place], [address] Bilirubin.direct [Mass/Vol] 0.11 mg/dL Normal 0.00-0.30 [facility] Comment on above: Performed By: #### L 500.3400 ####[facility] [address] [place], [address] Globulin (S) [Mass/Vol] 3.0 g/dL Normal 2.2-4.2 [facility] Comment on above: Performed By: #### L 500.3400 ####[facility] [address] [place], [address] T PROT 7.1 g/dL Normal 5.9-8.4 [facility] Comment on above: Performed By: #### L 500.3400 ####[facility] [address] [place], [address] T4 Free Directon 07-22-2024 T4 FREE DIRECT 1.40 ng/dL Normal 0.76-1.46 [facility] Comment on above: Performed By: #### L 501.9520, L506.0400 ####[facility] [address] [place], [address] Thyroid Stim Hormone (TSH)on 07-22-2024 TSH 0.598 uIU/mL Normal 0.300-4.200 [facility] Comment on above: Performed By: #### L 501.9520, L506.0400 ####[facility] [address] [place], [address] Basic Metabolic Profile (BMP )on 07-21-2024 BUN/CRE 9.9 RATIO Low 10-20 [facility] Comment on above: Performed By: #### L 506.0400, L3100.5055, L501.9520, L3300.1500, L501.9985, L3100.5310, L801.2600, L3300.1750, L500.4050, L509.6000 #### [facility] [address] [place], [address] Calcium [Mass/Vol] 9.6 mg/dL Normal 7.6-11.0 [facility] Comment on above: Performed By: #### L 506.0400, L3100.5055, L501.9520, L3300.1500, L501.9985, L3100.5310, L801.2600, L3300.1750, L500.4050, L509.6000 #### [facility] [address] [place], [address] Chloride [Moles/Vol] 99 mmol/L Normal 98-108 [facility] Comment on above: Performed By: #### L 506.0400, L3100.5055, L501.9520, L3300.1500, L501.9985, L3100.5310, L801.2600, L3300.1750, L500.4050, L509.6000 #### [facility] [address] [place], [address] CO2 [Moles/Vol] 26.9 mmol/L Normal 21.0-32.0 [facility] Comment on above: Performed By: #### L 506.0400, L3100.5055, L501.9520, L3300.1500, L501.9985, L3100.5310, L801.2600, L3300.1750, L500.4050, L509.6000 #### [facility] [address] [place], [address] Creatinine [Mass/Vol] 0.88 mg/dL Normal 0.70-1.20 [facility] Comment on above: Performed By: #### L 506.0400, L3100.5055, L501.9520, L3300.1500, L501.9985, L3100.5310, L801.2600, L3300.1750, L500.4050, L509.6000 #### [facility] [address] [place], [place], [phone] (225 ECRCL 124.27 ml/min Normal 50-250 [facility] Comment on above: Performed By: #### L 506.0400, L3100.5055, L501.9520, L3300.1500, L501.9985, L3100.5310, L801.2600, L3300.1750, L500.4050, L509.6000 #### [facility] [address] [place], [place], [phone] (325) GAP 13 Normal 5-15 [facility] Comment on above: Performed By: #### L 506.0400, L3100.5055, L501.9520, L3300.1500, L501.9985, L3100.5310, L801.2600, L3300.1750, L500.4050, L509.6000 #### [facility] [address] [facility] [facility] [place], [place], [id number] (995) GFR/1.73 sq M.predicted among non-blacks MDRD (S/P/Bld) [Vol rate/Area] 80 mL/min/{1.73_m2} Normal >60 [facility] Comment on above: Result Comment: mL/m in/1.73m2 CKD-EPI Creatinine Equation (2020) Performed By: #### L 506.0400, L3100.5055, L501.9520, L3300.1500, L501.9985, L3100.5310, L801.2600, L3300.1750, L500.4050, L509.6000 #### [facility] [address] [place], [place], [phone] (311) Glucose [Mass/Vol] 131 mg/dL High 70-99 [facility] Comment on above: Performed By: #### L 506.0400, L3100.5055, L501.9520, L3300.1500, L501.9985, L3100.5310, L801.2600, L3300.1750, L500.4050, L509.6000 #### [facility] [address] [place], [address] Potassium [Moles/Vol] 4.0 mmol/L Normal 3.3-5.1 [facility] Comment on above: Performed By: #### L 506.0400, L3100.5055, L501.9520, L3300.1500, L501.9985, L3100.5310, L801.2600, L3300.1750, L500.4050, L509.6000 #### [facility] [address] [facility] [place], [address] Sodium [Moles/Vol] 139 mmol/L Normal 133-145 [facility] Comment on above: Performed By: #### L 506.0400, L3100.5055, L501.9520, L3300.1500, L501.9985, L3100.5310, L801.2600, L3300.1750, L500.4050, L509.6000 #### [facility] [address] [place], [address] Urea nitrogen [Mass/Vol] 9 mg/dL Normal 4-19 [facility] Comment on above: Performed By: #### L 506.0400, L3100.5055, L501.9520, L3300.1500, L501.9985, L3100.5310, L801.2600, L3300.1750, L500.4050, L509.6000 #### [facility] [address] [facility] [place], [address] CBC W/Diff, Automatedon 03-0 6-2024 Absolute Lymph 4.51 X10 3/uL Normal 0.83-4.51 [facility] Comment on above: Performed By: #### L 506.0400, L3100.5055, L501.9520, L3300.1500, L501.9985, L3100.5310, L801.2600, L3300.1750, L500.4050, L509.6000 #### [facility] [address] [facility] [place], [address] Absolute Neut 4.3 X10 3/uL Normal 2.0-7.7 [facility] Comment on above: Performed By: #### L 506.0400, L3100.5055, L501.9520, L3300.1500, L501.9985, L3100.5310, L801.2600, L3300.1750, L500.4050, L509.6000 #### [facility] [address] [place], [address] Basophils/100 WBC (Bld) 0.9 % Normal 0-1 [facility] Comment on above: Performed By: #### L 506.0400, L3100.5055, L501.9520, L3300.1500, L501.9985, L3100.5310, L801.2600, L3300.1750, L500.4050, L509.6000 #### [facility] [address] [place], [address] Eosinophils/100 WBC (Bld) 1.3 % Normal 0-5 [facility] Comment on above: Performed By: #### L 506.0400, L3100.5055, L501.9520, L3300.1500, L501.9985, L3100.5310, L801.2600, L3300.1750, L500.4050, L509.6000 #### [facility] [address] [place], [address] Erythrocyte distribution width (RBC) [Ratio] 12.9 % Normal 11.6-14.6 [facility] Comment on above: Performed By: #### L 506.0400, L3100.5055, L501.9520, L3300.1500, L501.9985, L3100.5310, L801.2600, L3300.1750, L500.4050, L509.6000 #### [facility] [address] [place], [address] Hematocrit (Bld) [Volume fraction] 41.2 % Normal 37-47 [facility] Comment on above: Performed By: #### L 506.0400, L3100.5055, L501.9520, L3300.1500, L501.9985, L3100.5310, L801.2600, L3300.1750, L500.4050, L509.6000 #### [facility] [address] [facility] [place], [address] Hemoglobin (Bld) [Mass/Vol] 13.3 g/dL Normal 12.0-15.0 [facility] Comment on above: Performed By: #### L 506.0400, L3100.5055, L501.9520, L3300.1500, L501.9985, L3100.5310, L801.2600, L3300.1750, L500.4050, L509.6000 #### [facility] [address] [place], [address] IG% 0.100 Normal 0.0-0.9 [facility] Comment on above: Result Comment: IG% - Immature Granulocytes (promyelocytes, myelocytes and metamyelocytes) > 1% indicates that a LEFT SHIFT is Present. Performed By: #### L 506.0400, L3100.5055, L501.9520, L3300.1500, L501.9985, L3100.5310, L801.2600, L3300.1750, L500.4050, L509.6000 #### [facility] [address] [place], [address] Lymphocytes/100 WBC (Bld) 46.6 % High 19-41 [facility] Comment on above: Performed By: #### L 506.0400, L3100.5055, L501.9520, L3300.1500, L501.9985, L3100.5310, L801.2600, L3300.1750, L500.4050, L509.6000 #### [facility] [address] [place], [address] MCH (RBC) [Entitic mass] 27.6 pg Normal 27.0-32.0 [facility] Comment on above: Performed By: #### L 506.0400, L3100.5055, L501.9520, L3300.1500, L501.9985, L3100.5310, L801.2600, L3300.1750, L500.4050, L509.6000 #### [facility] [address] [facility] [place], [address] MCHC (RBC) [Mass/Vol] 32.3 g/dL Normal 32-36 [facility] Comment on above: Performed By: #### L 506.0400, L3100.5055, L501.9520, L3300.1500, L501.9985, L3100.5310, L801.2600, L3300.1750, L500.4050, L509.6000 #### [facility] [address] [place], [address] MCV (RBC) [Entitic vol] 85.5 fL Normal 81-99 [facility] Comment on above: Performed By: #### L 506.0400, L3100.5055, L501.9520, L3300.1500, L501.9985, L3100.5310, L801.2600, L3300.1750, L500.4050, L509.6000 #### [facility] [address] [place], [address] Monocytes/100 WBC (Bld) 6.4 % Normal 0-10 [facility] Comment on above: Performed By: #### L 506.0400, L3100.5055, L501.9520, L3300.1500, L501.9985, L3100.5310, L801.2600, L3300.1750, L500.4050, L509.6000 #### [facility] [address] [place], [address] Neutrophils/100 WBC (Bld) 44.7 % Low 47-70 [facility] Comment on above: Performed By: #### L 506.0400, L3100.5055, L501.9520, L3300.1500, L501.9985, L3100.5310, L801.2600, L3300.1750, L500.4050, L509.6000 #### [facility] [address] [facility] [place], [address] Nucleated RBC (Bld) [#/Vol] 0 10*3/uL Normal 0-5 [facility] Comment on above: Performed By: #### L 506.0400, L3100.5055, L501.9520, L3300.1500, L501.9985, L3100.5310, L801.2600, L3300.1750, L500.4050, L509.6000 #### [facility] [address] [facility] [place], [address] Platelet mean volume (Bld) [Entitic vol] 9.5 fL Normal 6.2-12.0 [facility] Comment on above: Performed By: #### L 506.0400, L3100.5055, L501.9520, L3300.1500, L501.9985, L3100.5310, L801.2600, L3300.1750, L500.4050, L509.6000 #### [facility] [address] [facility] [place], [address] Platelets (Bld) [#/Vol] 374 10*3/uL Normal 150-450 [facility] Comment on above: Performed By: #### L 506.0400, L3100.5055, L501.9520, L3300.1500, L501.9985, L3100.5310, L801.2600, L3300.1750, L500.4050, L509.6000 #### [facility] [address] [facility] [place], [address] RBC (Bld) [#/Vol] 4.82 10*6/uL Normal 4.2-5.4 [facility] Comment on above: Performed By: #### L 506.0400, L3100.5055, L501.9520, L3300.1500, L501.9985, L3100.5310, L801.2600, L3300.1750, L500.4050, L509.6000 #### [facility] [address] [facility] [place], [place], [id number] (388) RDW SD 39.6 fl Normal 35.1-43.9 [facility] Comment on above: Performed By: #### L 506.0400, L3100.5055, L501.9520, L3300.1500, L501.9985, L3100.5310, L801.2600, L3300.1750, L500.4050, L509.6000 #### [facility] [address] [facility] [place], [address] WBC (Bld) [#/Vol] 9.7 10*3/uL Normal 4.4-11.0 [facility] Comment on above: Performed By: #### L 506.0400, L3100.5055, L501.9520, L3300.1500, L501.9985, L3100.5310, L801.2600, L3300.1750, L500.4050, L509.6000 #### [facility] [address] [facility] [place], [address] Chest 1 View (Portable)on Chest 1 View (Portable) [facility] Imaging Services [address] [place] [address] Chest 1 View (Portable) MR#: [id number] Acct: [id number] Name: BALJIT GERMAN Rep #: [id number] : 1970 F 54 From: Mansoor Laura MD PCP: Dr. Erika Reynolds MD Status: REG ER Study: Chest 1 View (Portable) Date of Exam: 07/21/24 Exam# [id number] Ordering Dr: Patrick Machuca MD PROCEDURE: CHEST 1 VIEW (PORTABLE) REASON FOR EXAM: Chest pain TECHNIQUE: Frontal view of the chest. COMPARISON: 01/30/2024 FINDINGS: The lungs are clear. Pulmonary vascularity appears within limits. Cardiac and mediastinal contours appear within limits. Visualized osseous structures appear within limits. RAD/Chest 1 View (Portable) IMPRESSION: No evidence of acute disease.. Reading Location: [facility] CC: Dr. Patrick Machuca MD; Dr. 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 Performed By: #### L 506.0400, L3100.5055, L501.9520, L3300.1500, L501.9985, L3100.5310, L801.2600, L3300.1750, L500.4050, L509.6000 #### [facility] [address] [place], [address] Emergency Department Summary on 07-21-2024 Emergency Department Summary [facility] Medical Records Department [address] [place] [address] Emergency Department Summary 07/21/24 MR#: [id number] Acct: [id number] Name: BALJIT GERMAN Rep #: [id number] : 1970 54 From: Patrick Machuca MD PCP: Dr. Erika Reynolds MD Status:REG ER Location: ED HPI History of Present Illness Chief Complaint: Chest Pain Informant: patient Narrative Narrative: 54-year-old female states at home tonight around 5 hours ago, she started feeling chest pressure, tingling in both of her arms, some lightheadedness, rapid palpitations, it has waxed and waned but for the most part been there since it started. She also states she has noticed some clamp remover colored skin on her legs and she feels like there are red splotches/a rash. When asked if they were pruritic she states no at 1 point they were burning but it is asymptomatic at this time. She denies any edema in her feet or hands. No swelling of her tongue or anything else. Denies any known heart history. States she had 7 teeth pulled 2 or 3 weeks ago, she was on a week of antibiotics and prednisone, but she has been finished with those for about a week. She denies any recent leg pain or swelling unilaterally, pleuritic chest discomfort, radiation to the neck or the arm, diaphoresis, recent long travel or immobilization or surgery or hospitalization other than the teeth being pulled. She did have a DVT remotely, it was provoked by a knee surgery, she is no longer on anticoagulants and never had another blood clot or clotting disorder that she was diagnosed with. [facility] Medical History Borderline type 2 diabetes mellitus Morbid obesity Tear of medial meniscus of right knee Left wrist pain Right knee pain Thyromegaly Ear discomfort Post-menopausal Alcohol use History of steroid therapy Thyroid disease Back pain History of pain when walking History of edema Normal stress echocardiogram History of echocardiogram Cardiology follow-up encounter Pre-op evaluation Prediabetes Generalized anxiety disorder Adjustment disorder Vitamin D deficiency Wears partial dentures Wears glasses Loose, teeth Substance abuse Marijuana use Depression Hypothyroid Arthritis Gastric reflux Smoker Upper respiratory infection Exposure to COVID-19 virus Suspected COVID-19 virus infection Hypersomnolence Chronic back pain Urticaria Anxiety Excessive somnolence disorder Hypertension Hypothyroidism (acquired) Abnormal EKG ADHD (attention deficit hyperactivity disorder) Labyrinthitis Vertigo Home Medications ???Medication ???Instructions ???Recorded ???Last Taken ???Type acetaminophen 500 mg tablet 500 - 1,000 mg (1 - 2 x 500 mg) PO 12/18/21 Unknown Rx (Tylenol Extra Strength) Q6H PRN pain #60 tabs SEA ELIZONDO GEL 1 tsp PO DAILY 10/16/22 Unknown Hi story ana rosa extract 120 mg capsule 120 mg PO DAILY 10/16/22 Unknown History duloxetine 30 mg capsule,delayed 30 mg PO BID #60 caps 10/27/23 Unk nown Rx release (Cymbalta) conjugated estrogens 0.9 mg tablet 0.9 mg PO DAILY #90 tabs 4 Unknown Rx levothyroxine 112 mcg tablet See Rx Instructions .Route 4 Unknown Rx .COMPLEX #30 tabs amlodipine 10 mg tablet See Rx Instructions .Route 5 Unknown Rx .COMPLEX #90 tabs hydrochlorothiazide 12.5 mg tablet See Rx Instructions .Route 06/27 Unknown Rx .COMPLEX #90 tabs lidocaine 4 % topical patch See Rx Instructions .Route 5 Unknown Rx .COMPLEX #60 patches metformin 500 mg tablet,extended 500 mg PO BID #120 tabs 06/27/24 U nknown Rx release 24 hr pregabalin 75 mg capsule 75 mg PO BID 06/27/24 Unknown Hist ory Allergy/AdvReac Type Severity Reaction Status Date / Time codeine Allergy Itching Verified 07/21/24 22:26 lisinopril Allergy Angioedema Verified 07/21/24 22:26 Family History Sister , of [place] CAD (coronary artery disease) Myocardial infarction Sudden cardiac Father Pancreatic cancer Surgical History Status post arthroscopic surgery of left knee Hx of tooth extraction Hx of wisdom tooth extraction History of bilateral carpal tunnel release History of appendectomy History of hysterectomy History of tubal ligation Social History Smoking Status: Current every day smoker tobacco type: cigarettes Tobacco: How many years used: 30 alcohol intake: current alcohol intake frequency: holidays/special occasions only substance use type: marijuana what type of physical activity do you participate in: none ROS ROS ED Constitutional Constitutional ED: Denies chil (more content not included)... Normal [facility] L501.4021on 07-21-2024 Trop T High Sen 7 ng/L Normal <=14 [facility] Comment on above: Performed By: #### L 506.0400, L3100.5055, L501.9520, L3300.1500, L501.9985, L3100.5310, L801.2600, L3300.1750, L500.4050, L509.6000 #### [facility] [address] [place], [address] Internal Medicine Office Vis iton 06-27-2024 Internal Medicine Office Visit [facility] [address] [place], [place] [address] OFFICE VISIT Date of Service: 06/27/24 MR#: [id number] Acct: [id number] Name: KINGSLEYBALJIT Adam Rep #: [id number] : 1970 Provider: Dr. Erika nur MD Age/Sex: 54/F Location: [facility] Status: Signed Intake Vital Signs 03/30/24 14:41 06/27/24 15:04 Height 5 ft 4 in 5 ft 4 in Weight: 268 lb BMI 46.0 BP 144/90 H Blood Pressure Location Lt brachial Position Sitting Respiration 16 Pulse 65 Pulse Source Auscultation Temp 97.7 F L Temp Source Temporal Oxygen Delivery Method room air Intake Visit Reasons: FU Chief Complaint: FU Is patient in pain?: Yes (LOWER BACK-CHRONIC) Pain scale (1-10): 6 Allergies codeine Allergy (Verified 06/27/24 15:00) Itching lisinopril Allergy (Verified 06/27/24 15:00) Angioedema Medications ???Medication ???Instructions ???Recorded ???Confirmed ???Type acetaminophen 500 mg tablet 500 - 1,000 mg (1 - 2 x 500 mg) PO 12/18/21 06/27/24 Rx (Tylenol Extra Strength) Q6H PRN pain #60 tabs SEA ELIZONDO GEL 1 tsp PO DAILY 10/16/22 06/27/24 H istory ashwagandha extract 120 mg capsule 120 mg PO DAILY 10/16/22 5 History duloxetine 30 mg capsule,delayed 30 mg PO BID #60 caps 10/27/2303/11 Rx release (Cymbalta) conjugated estrogens 0.9 mg tablet 0.9 mg PO DAILY #90 tabs 4 06/27/24 Rx levothyroxine 112 mcg tablet See Rx Instructions .Route 4 06/27/24 Rx .COMPLEX #30 tabs amlodipine 10 mg tablet See Rx Instructions .Route 5 06/27/24 Rx .COMPLEX #90 tabs hydrochlorothiazide 12.5 mg tablet See Rx Instructions .Route 06/2706/27/24 Rx .COMPLEX #90 tabs lidocaine 4 % topical patch See Rx Instructions .Route 5 06/27/24 Rx .COMPLEX #60 patches metformin 500 mg tablet,extended 500 mg PO BID #120 tabs 06/27/24 0 06/27/24 Rx release 24 hr pregabalin 75 mg capsule 75 mg PO BID 06/27/24 06/27/24 His tory Have you fallen in the past year?: No Nurse's Note: WOULD LIKE TO DISCUSS MOST RECENT LABS [facility] Medical History (Updated 06/27/24 @ 16:[address] Erika Reynolds MD) Borderline type 2 diabetes mellitus Morbid obesity Tear of medial meniscus of right knee Left wrist pain Right knee pain Thyromegaly Ear discomfort Post-menopausal Alcohol use History of steroid therapy Thyroid disease Back pain History of pain when walking History of edema Normal stress echocardiogram History of echocardiogram Cardiology follow-up encounter Pre-op evaluation Prediabetes Generalized anxiety disorder Adjustment disorder Vitamin D deficiency Wears partial dentures Wears glasses Loose, teeth Substance abuse Marijuana use Depression Hypothyroid Arthritis Gastric reflux Smoker Upper respiratory infection Exposure to COVID-19 virus Suspected COVID-19 virus infection Hypersomnolence Chronic back pain Urticaria Anxiety Excessive somnolence disorder Hypertension Hypothyroidism (acquired) Abnormal EKG ADHD (attention deficit hyperactivity disorder) Labyrinthitis Vertigo Surgical History Status post arthroscopic surgery of left knee Hx of tooth extraction Hx of wisdom tooth extraction History of bilateral carpal tunnel release History of appendectomy History of hysterectomy History of tubal ligation Family History Sister , of [place] CAD (coronary artery disease) Myocardial infarction Sudden cardiac Father Pancreatic cancer Social History Smoking Status: Current every day smoker tobacco type: cigarettes Tobacco: How many years used: 30 alcohol intake: current alcohol intake frequency: holidays/special occasions only substance use type: marijuana what type of physical activity do you participate in: none HPI HPI Chief Complaint: FU Details: BALJIT GERMAN, is a 54 F who presents to the office today for follow-up/discuss labs. She had a bunch of labs done due to concerns for fatigue and difficulty with weight loss. This included hormonal levels with testosterone and DHEA coming back low. Other testing including cortisol was within range. She states that she has had difficulty with weight loss, fatigue and just an overall feeling of unwell. History of hypothyroidism on levothyroxine and TSH has not been within range for over a year. Also history of sleep apnea, last sleep study in 2018 with moderate to severe sleep apnea. Has gained weight since then. She states that she used her CPAP just twice and due to intense pressure/feeling of suffocation she stopped using it. As above, history of hypothyroidism and thyroid function has not (more content not included)... [facility] ([facility] ) BALJIT GERMAN Adam ([id number]) 1970 F Date Time Provider Department 06/17/24 4:30 PM SUDHA SALGADO [facility] During your visit today, we recorded the following information about you: Temperature Pulse Respiration Blood pressure 98 degrees 72/minute 18/minute 132/86 Weight 123.3 kg Sudha Salgado APRN.WRAPPER HAND 06/17/2024 4:47 PM Signed Subjective Female with complaints of right sided jaw and ear pain. Patient says she does have bad teeth. Patient says she has had tooth infections before. Patient is not sure if it is a tooth infection or an ear infection. Patient denies any fever chills nausea vomiting. Patient denies any difficulty breathing. Patient denies any other symptoms. The history is provided by the patient. No american sign language interpreter was used. Dental Problem Review of Systems Constitutional: Negative. Skin: Negative. Objective Physical Exam Constitutional: Appearance: Normal appearance. HENT: Right Ear: Hearing, tympanic membrane, ear canal and external ear normal. Left Ear: Hearing, tympanic membrane, ear canal and external ear normal. Mouth/Throat: Mouth: Mucous membranes are moist. Tongue: No lesions. Tongue does not deviate from midline. Palate: No mass and lesions. Pharynx: Oropharynx is clear. Uvula midline. Comments: Significant dental caries noted. Is tender in the area marked blue above. No signs of abscesses at this time. No trismus noted. Cardiovascular: Rate and Rhythm: Normal rate and regular rhythm. Heart sounds: Normal heart sounds. Pulmonary: Effort: Pulmonary effort is normal. Breath sounds: Normal breath sounds. Neurological: Mental Status: She is alert. PAST MEDICAL HISTORY Diagnosis Date ADHD (attention deficit hyperactivity disorder) Anxiety Cocaine abuse (HCC) 10/2013 Current smoker GERD (gastroesophageal reflux disease) GOITER NOS 05/31/2008 Previously with hyperthyroidism but presented with hypothyrodism in 05-26: US ordered US 05-26: 6.8 mm nodule in the mid R lobe with a heterogenously enlarged thyroid Hormone replacement therapy (HRT) 03/2012 Hypercholesterolemia 10/2012 Hypertension HYPOTHYROIDISM NOS 05/31/2008 TSH 0.07 (0.5-6) in 05-26: likely suppressed from thyrotoxicosis in the past (consider TRH testing) T3 86 (94-170) in 05-26 T4 4.2 (4.9-11) in 05-26 TU and FTI in therapeutic range as of 05-26 MRI 05-26 with NL findings and no pituitary issues Incisional pain 07/23/2012 Left carpal tunnel syndrome 03/25/2013 Marijuana abuse 12/2012, 10/2013 Morbid obesity (HCC) 05/31/2008 Pain in joint, lower leg 12/28/2009 Pain in thoracic spine 05/31/2008 Puncture wound of small intestine, open 03/26/2012 Right carpal tunnel syndrome 08/20/2012 Right upper quadrant abdominal pain 06/29/2014 Withdrawal from methamphetamine (HCC) 06/10/2020 AND other substances. Rehab at [facility] PAST SURGICAL HISTORY Procedure Laterality Date APPENDECTOMY 03/2012 same time as hysterectomy CARPAL TUNNEL 2013 left ENTERORRHAPHY MULTIPLE PERFORATIONS 03/24/12 x 2; during BSO EXTRACTION, ERUPTED TOOTH OR EXPOSED ROOT (ELEVATION AND/OR FORCEPS REMOVAL) 2016 infected tooth extracted INDUCED - EVACUATION x 2 NEUROPLASTY AND/TRANSPOS MEDIAN NRV CARPAL TUNNE 08/20/2012 Carpal tunnel decomp - right S TUBAL LIGATION 1994 SALPINGO-OOPHORECTOMY COMPL/PRTL UNI/BI SPX 2012 [id number] one separate from hysterectomy TOTAL ABDOMINAL HYSTERECT W/WO RMVL TUBE OVARY 2011 JANNA for fibroids ALLERGIES Lisinopril and Codeine MEDICATIONS DULoxetine (CYMBALTA) 60 mg capsule Take 1 capsule by mouth every 12 hours. pregabalin (LYRICA) 75 mg capsule Take 1 capsule by mouth every 12 hours. levothyroxine (LEVOXYL) 150 mcg tablet Take 1 tablet by mouth once daily. Take on empty stomach. For thyroid. amLODIPine (NORVASC) 10 mg tablet Take 1 tablet by mouth once daily. estrogens conjugated (PREMARIN) 1.25 mg tablet Take 1 tablet by mouth once daily. Hydrochlorothiazide 12.5 mg capsule Take 1 capsule by mouth once daily. amoxicillin (AMOXIL) 875 mg tablet Take 1 tablet by mouth two times a day for 5 days. albuterol HFA (PROVENTIL HFA, VENTOLIN HFA) 90 mcg/actuation inhaler Inhale 2 Puffs as instructed every 4 hours as needed for wheezing/shortness of breath. (Patient not taking: Reported on 06/17/2024) POTASSIUM-99 ORAL Take by mouth. (Patient not taking: Reported on 05/16/2024) Vitamin I03-Qprzj Acid 0.5-1 mg tab Take by mouth. (Patient not taking: Reported on 05/16/2024) Blood Pressure Monitor (BLOOD PRESSURE KIT) Dx: HTN, labile blood pressures (Patient not taking: Reported on 09/10/2021 ) amitriptyline (ELAVIL) 10 mg tablet Take 1 tablet by mouth daily at bedtime. (Patient not taking: Reported on 09/10/2021 ) FAMILY HISTORY Problem Relation Age of Onset Hypertension Father other (Pancreatic ca (more content not included)... Normal [facility] CNOVon 05-16-2024 [facility] Office Visit ([facility] ) BALJIT GERMAN ([id number]) 1970 F Date Time Provider Department 05/16/24 4:45 PM STACIE JAIN [facility] During your visit today, we recorded the following information about you: Temperature Pulse Respiration Blood pressure 98.2 degrees 71/minute 18/minute 138/84 Weight 119.9 kg Stacie Jain APRN.WRAPPER HAND 05/16/2024 5:23 PM Signed Subjective Cough Associated symptoms include headaches and sore throat. Pertinent negatives include no chest pain, no chills, no ear pain, no myalgias and no shortness of breath. Baljit German is a 54 year old female who presents with sore throat, cough, chest congestion for the past 3 days. She has not had a fever. She feels short of breath. States she is coughing up phlegm that tastes bad. After being roomed she also remembered she has had a toothache. States she has bad teeth and has pain in right upper molar for the past few days. Review of Systems Constitutional: Negative for chills, fever and malaise/fatigue. HENT: Positive for congestion and sore throat. Negative for ear pain. Respiratory: Positive for cough and sputum production. Negative for shortness of breath. Cardiovascular: Negative for chest pain. Gastrointestinal: Negative for diarrhea, nausea and vomiting. Musculoskeletal: Negative for myalgias. Neurological: Positive for headaches. BP 138/84 Pulse 71 Temp 36.8 ?C (98.2 ?F) (Tympanic) Resp 18 Wt 119.9 kg (264 lb 5.3 oz) LMP 02/19/2010 SpO2 98% BMI 45.37 kg/m? PAST MEDICAL HISTORY Diagnosis Date ADHD (attention deficit hyperactivity disorder) Anxiety Cocaine abuse (HCC) 10/2013 Current smoker GERD (gastroesophageal reflux disease) GOITER NOS 05/31/2008 Previously with hyperthyroidism but presented with hypothyrodism in 05-26: US ordered US 05-26: 6.8 mm nodule in the mid R lobe with a heterogenously enlarged thyroid Hormone replacement therapy (HRT) 03/2012 Hypercholesterolemia 10/2012 Hypertension HYPOTHYROIDISM NOS 05/31/2008 TSH 0.07 (0.5-6) in 05-26: likely suppressed from thyrotoxicosis in the past (consider TRH testing) T3 86 (94-170) in 05-26 T4 4.2 (4.9-11) in 05-26 TU and FTI in therapeutic range as of 05-26 MRI 05-26 with NL findings and no pituitary issues Incisional pain 07/23/2012 Left carpal tunnel syndrome 03/25/2013 Marijuana abuse 12/2012, 10/2013 Morbid obesity (HCC) 05/31/2008 Pain in joint, lower leg 12/28/2009 Pain in thoracic spine 05/31/2008 Puncture wound of small intestine, open 03/26/2012 Right carpal tunnel syndrome 08/20/2012 Right upper quadrant abdominal pain 06/29/2014 Withdrawal from methamphetamine ([facility]) 06/10/2020 AND other substances. Rehab at [facility] PAST SURGICAL HISTORY Procedure Laterality Date APPENDECTOMY 03/2012 same time as hysterectomy CARPAL TUNNEL 2013 left ENTERORRHAPHY MULTIPLE PERFORATIONS 03/24/12 x 2; during BSO EXTRACTION, ERUPTED TOOTH OR EXPOSED ROOT (ELEVATION AND/OR FORCEPS REMOVAL) 2016 infected tooth extracted INDUCED - EVACUATION x 2 NEUROPLASTY AND/TRANSPOS MEDIAN NRV CARPAL TUNNE 08/20/2012 Carpal tunnel decomp - right S TUBAL LIGATION 1994 SALPINGO-OOPHORECTOMY COMPL/PRTL UNI/BI SPX 2012 Fctejkzn-quyuzetegttq-h one separate from hysterectomy TOTAL ABDOMINAL HYSTERECT W/WO RMVL TUBE OVARY 2011 JANNA for fibroids ALLERGIES Codeine and Lisinopril MEDICATIONS DULoxetine (CYMBALTA) 60 mg capsule Take 1 capsule by mouth every 12 hours. pregabalin (LYRICA) 75 mg capsule Take 1 capsule by mouth every 12 hours. levothyroxine (LEVOXYL) 150 mcg tablet Take 1 tablet by mouth once daily. Take on empty stomach. For thyroid. amLODIPine (NORVASC) 10 mg tablet Take 1 tablet by mouth once daily. estrogens conjugated (PREMARIN) 1.25 mg tablet Take 1 tablet by mouth once daily. Hydrochlorothiazide 12.5 mg capsule Take 1 capsule by mouth once daily. POTASSIUM-99 ORAL Take by mouth. (Patient not taking: Reported on 05/16/2024) Vitamin R22-Itfrl Acid 0.5-1 mg tab Take by mouth. (Patient not taking: Reported on 05/16/2024) Blood Pressure Monitor (BLOOD PRESSURE KIT) Dx: HTN, labile blood pressures (Patient not taking: Reported on 09/10/2021 ) amitriptyline (ELAVIL) 10 mg tablet Take 1 tablet by mouth daily at bedtime. (Patient not taking: Reported on 09/10/2021 ) FAMILY HISTORY Problem Relation Age of Onset Hypertension Father other (Pancreatic cancer [Other]) Father Diabetes Father Social History Tobacco Use Smoking status: Every Day Current packs/day: 0.50 Average packs/day: 0.5 packs/day for 15.0 years (7.5 ttl pk-yrs) Types: Cigarettes Smokeless tobacco: Never Vaping Use Vaping status: Never Used Substance Use Topics Alcohol use: Not Currently Comment: occasionally Drug use: Not Currently Comment: marijuana 1-2x's/week; cocaine-pt states rarely uses Objective Phy (more content not included)... Normal [facility] STREP A MOLECULAR (POC)on Procedural Control Valid [facility] Strep A (POCT) Negative Negative [facility] XR CHEST 2V FRONTAL/LATon XR CHEST 2V FRONTAL/LAT * * *Final Report* * * DATE OF EXAM: May 16 2024 5:11PM WOX 5291 - XR CHEST 2V FRONTAL/LAT / PROCEDURE REASON: Acute cough * * * * Physician Interpretation * * * * EXAMINATION: CHEST RADIOGRAPH (2 VIEW FRONTAL and LATERAL) CLINICAL HISTORY: Acute cough MQ: XC2_6 EXAM DATE/TIME: 05/16/2024 5:11 PM COMPARISON: Chest x-ray on 08/03/2015 RESULT: Lines, tubes, and devices: None. Lungs and pleura: Small lung volume. No consolidation. No lung mass. No pleural effusion. No pneumothorax. Cardiomediastinal silhouette: Stable cardiomediastinal silhouette. Bones and soft tissues: There are degenerative changes in the spine. IMPRESSION: No acute radiographic abnormality. Sieve Repairer: PSCJorge Luis Transcribe Date/Time: May 16 2024 5:12P Dictated by : SANGEETHA MOSER MD This examination was interpreted and the report reviewed and electronically signed by: SANGEETHA MOSER MD on May 16 2024 5:12PM EST [id number] Normal [facility] XR Chest PA and Lateralon IMPRESSION: No acute radiographic abnormality. Sieve Repairer: PSCB Transcribe Date/Time: May 16 2024 5:12P Dictated by : SANGEETHA MOSER MD This examination was interpreted and the report reviewed and electronically signed by: SANGEETHA MOSER MD on May 16 2024 5:12PM EST DIVISION OF RADIOLOGY * * *Final Report* * * DATE OF EXAM: May 16 2024 5:11PM WOX 5291 - XR CHEST 2V FRONTAL/LAT / PROCEDURE REASON: Acute cough * * * * Physician Interpretation * * * * EXAMINATION: CHEST RADIOGRAPH (2 VIEW FRONTAL & LATERAL) CLINICAL HISTORY: Acute cough MQ: XC2_6 EXAM DATE/TIME: 05/16/2024 5:11 PM COMPARISON: Chest x-ray on 08/03/2015 RESULT: Lines, tubes, and devices: None. Lungs and pleura: Small lung volume. No consolidation. No lung mass. No pleural effusion. No pneumothorax. Cardiomediastinal silhouette: Stable cardiomediastinal silhouette. Bones and soft tissues: There are degenerative changes in the spine. DIVISION OF RADIOLOGY Provider, [facility] - 05/16/2024 * * *Final Report* * * DATE OF EXAM: May 16 2024 5:11PM WOX 5291 - XR CHEST 2V FRONTAL/LAT / PROCEDURE REASON: Acute cough * * * * Physician Interpretation * * * * EXAMINATION: CHEST RADIOGRAPH (2 VIEW FRONTAL & LATERAL) CLINICAL HISTORY: Acute cough MQ: XC2_6 EXAM DATE/TIME: 05/16/2024 5:11 PM COMPARISON: Chest x-ray on 08/03/2015 RESULT: Lines, tubes, and devices: None. Lungs and pleura: Small lung volume. No consolidation. No lung mass. No pleural effusion. No pneumothorax. Cardiomediastinal silhouette: Stable cardiomediastinal silhouette. Bones and soft tissues: There are degenerative changes in the spine. IMPRESSION IMPRESSION: No acute radiographic abnormality. Sieve Repairer: MARICEL Transcribe Date/Time: May 16 2024 5:12P Dictated by : SANGEETHA MOSER MD This examination was interpreted and the report reviewed and electronically signed by: SANGEETHA MOSER MD on May 16 2024 5:12PM EST [facility] Radiology Study observation (narrative) [facility] XR Chest PA and LateralOrder ed By: Ccf Provider on 05-16-2024 [facility] DHEA Sulfateon 04-27-2024 DHEA SULFATE 10.3 ug/dL Low 41.2-243.7 [facility] Comment on above: Order Comment: NN Result Comment: Perf ormed at: [facility] [id number] Physical Therapy Manager: Artie Rosas PhD, Phone: [phone] Performed at: [facility] [id number] Physical Therapy Manager: Mary Lim MD, Phone: [phone] Performed By: #### L 501.9520, L100.0100 #### [facility] [address] [place], [address] Testosterone, Total / Freeon 04-27-2024 TESTOSTER,FREE <.04 Abnormal 0.10-0.85 [facility] Comment on above: Order Comment: NN Performed By: #### L 501.9520, L100.0100 #### [facility] [address] [place], [address] TESTOSTER,TOTAL < 3 Low 4-50 [facility] Comment on above: Order Comment: NN Performed By: #### L 501.9520, L100.0100 #### [facility] [address] [place], [address] TESTOSTERONE,%F 1.39 Normal 0.50-2.80 [facility] Comment on above: Order Comment: NN Performed By: #### L 501.9520, L100.0100 #### [facility] [address] [place], [address] PROGESTERONE 4317on 04-22-20 24 PROGESTERONE 0.1 ng/mL Normal . [facility] Comment on above: Order Comment: N Result Comment: Foll icular phase 0.1 - 0.9 Luteal phase 1.8 - 23.9 Ovulation phase 0.1 - 12.0 First trimester 11.0 - 44.3 Second trimester 25.4 - 83.3 Third trimester 58.7 - 214.0 Postmenopausal 0.0 - 0.1 Performed at: [address] [id number] Physical Therapy Manager: Artie Rosas PhD, Phone: [phone] Performed By: #### L 501.9520, L100.0100 #### [facility] [address] [place], [place], [address] CORTISOL SERUMon 04-20-2024 CORTISOL 4.50 ug/dL Normal 3.44-22.45 [facility] Comment on above: Result Comment: Adul t (AM) 5.27 - 22.45 ug/dL Adult (PM) 3.44 - 16.76 ug/dL Performed By: #### L 506.0400, L3100.5055, L501.9520, L3300.1500, L501.9985, L3100.5310, L801.2600, L3300.1750, L500.4050, L509.6000 #### [facility] [address] [place], [address] Comprehensive Metabolic Prof ilon 04-20-2024 Albumin [Mass/Vol] 3.0 g/dL Low 3.2-5.0 [facility] Comment on above: Order Comment: N Performed By: #### L 506.0400, L3100.5055, L501.9520, L3300.1500, L501.9985, L3100.5310, L801.2600, L3300.1750, L500.4050, L509.6000 #### [facility] [address] [place], [place], [id number] Albumin/Globulin [Mass ratio] 0.7 {ratio} Low 0.9-2.4 [facility] Comment on above: Order Comment: N Performed By: #### L 506.0400, L3100.5055, L501.9520, L3300.1500, L501.9985, L3100.5310, L801.2600, L3300.1750, L500.4050, L509.6000 #### [facility] [address] [place], [address] ALK P 98 U/L Normal 45-117 [facility] Comment on above: Order Comment: N Performed By: #### L 506.0400, L3100.5055, L501.9520, L3300.1500, L501.9985, L3100.5310, L801.2600, L3300.1750, L500.4050, L509.6000 #### [facility] [address] [place], [place], [id number] ALT [Catalytic activity/Vol] 16 U/L Normal 13-56 [facility] Comment on above: Order Comment: N Performed By: #### L 506.0400, L3100.5055, L501.9520, L3300.1500, L501.9985, L3100.5310, L801.2600, L3300.1750, L500.4050, L509.6000 #### [facility] [address] [place], [address] AST [Catalytic activity/Vol] 11 U/L Low 15-37 [facility] Comment on above: Order Comment: N Performed By: #### L 506.0400, L3100.5055, L501.9520, L3300.1500, L501.9985, L3100.5310, L801.2600, L3300.1750, L500.4050, L509.6000 #### [facility] [address] [place], [address] Bilirubin [Mass/Vol] 0.20 mg/dL Normal 0.20-1.00 [facility] Comment on above: Order Comment: N Result Comment: For patients on eltrombopag therapy, use of Dimension Julian TBIL is not recommended. Performed By: #### L 506.0400, L3100.5055, L501.9520, L3300.1500, L501.9985, L3100.5310, L801.2600, L3300.1750, L500.4050, L509.6000 #### [facility] [address] [place], [address] BUN/CRE 13.9 RATIO Normal 10-20 [facility] Comment on above: Order Comment: N Performed By: #### L 506.0400, L3100.5055, L501.9520, L3300.1500, L501.9985, L3100.5310, L801.2600, L3300.1750, L500.4050, L509.6000 #### [facility] [address] [place], [address] CA,Total 9.0 mg/dL Normal 8.5-10.1 [facility] Comment on above: Order Comment: N Performed By: #### L 506.0400, L3100.5055, L501.9520, L3300.1500, L501.9985, L3100.5310, L801.2600, L3300.1750, L500.4050, L509.6000 #### [facility] [address] [place], [address] Chloride [Moles/Vol] 104 mmol/L Normal 98-107 [facility] Comment on above: Order Comment: N Performed By: #### L 506.0400, L3100.5055, L501.9520, L3300.1500, L501.9985, L3100.5310, L801.2600, L3300.1750, L500.4050, L509.6000 #### [facility] [address] [place], [address] CO2 [Moles/Vol] 29.0 mmol/L Normal 21.0-32.0 [facility] Comment on above: Order Comment: N Performed By: #### L 506.0400, L3100.5055, L501.9520, L3300.1500, L501.9985, L3100.5310, L801.2600, L3300.1750, L500.4050, L509.6000 #### [facility] [address] [place], [address] Creatinine [Mass/Vol] 0.87 mg/dL Normal 0.55-1.02 [facility] Comment on above: Order Comment: N Result Comment: The validity of the calculated GFR GFRAA in patients over 70 years has not been determined. Clinical correlation is essential. Performed By: #### L 506.0400, L3100.5055, L501.9520, L3300.1500, L501.9985, L3100.5310, L801.2600, L3300.1750, L500.4050, L509.6000 #### [facility] [address] [place], [address] EST GFR - AA 88 mL/min Normal >60 [facility] Comment on above: Order Comment: N Result Comment: Afri can Afghan GFR Calc Performed By: #### L 506.0400, L3100.5055, L501.9520, L3300.1500, L501.9985, L3100.5310, L801.2600, L3300.1750, L500.4050, L509.6000 #### [facility] [address] [place], [address] GAP 6 Normal 5-15 [facility] Comment on above: Order Comment: N Performed By: #### L 506.0400, L3100.5055, L501.9520, L3300.1500, L501.9985, L3100.5310, L801.2600, L3300.1750, L500.4050, L509.6000 #### [facility] [address] [place], [address] GFR/1.73 sq M.predicted among non-blacks MDRD (S/P/Bld) [Vol rate/Area] 73 mL/min/{1.73_m2} Normal >60 [facility] Comment on above: Order Comment: N Result Comment: Non- GFR Calc Performed By: #### L 506.0400, L3100.5055, L501.9520, L3300.1500, L501.9985, L3100.5310, L801.2600, L3300.1750, L500.4050, L509.6000 #### [facility] [address] [place], [address] Globulin (S) [Mass/Vol] 4.5 g/dL High 2.2-4.2 [facility] Comment on above: Order Comment: N Performed By: #### L 506.0400, L3100.5055, L501.9520, L3300.1500, L501.9985, L3100.5310, L801.2600, L3300.1750, L500.4050, L509.6000 #### [facility] [address] [place], [address] Glucose [Mass/Vol] 79 mg/dL Normal 74-106 [facility] Comment on above: Order Comment: N Performed By: #### L 506.0400, L3100.5055, L501.9520, L3300.1500, L501.9985, L3100.5310, L801.2600, L3300.1750, L500.4050, L509.6000 #### [facility] [address] [place], [address] Potassium [Moles/Vol] 3.5 mmol/L Normal 3.5-5.1 [facility] Comment on above: Order Comment: N Performed By: #### L 506.0400, L3100.5055, L501.9520, L3300.1500, L501.9985, L3100.5310, L801.2600, L3300.1750, L500.4050, L509.6000 #### [facility] [address] [place], [place], [id number] (055) Sodium [Moles/Vol] 138 mmol/L Normal 136-145 [facility] Comment on above: Order Comment: N Performed By: #### L 506.0400, L3100.5055, L501.9520, L3300.1500, L501.9985, L3100.5310, L801.2600, L3300.1750, L500.4050, L509.6000 #### [facility] [address] [place], [place], [id number] T PROT 7.5 g/dL Normal 6.4-8.2 [facility] Comment on above: Order Comment: N Performed By: #### L 506.0400, L3100.5055, L501.9520, L3300.1500, L501.9985, L3100.5310, L801.2600, L3300.1750, L500.4050, L509.6000 #### [facility] [address] [place], [place], [phone] Urea nitrogen [Mass/Vol] 12 mg/dL Normal 7-18 [facility] Comment on above: Order Comment: N Performed By: #### L 506.0400, L3100.5055, L501.9520, L3300.1500, L501.9985, L3100.5310, L801.2600, L3300.1750, L500.4050, L509.6000 #### [facility] [address] [place], [place], [address] (365) Estradiolon 04-20-2024 ESTRADIOL 26.7 pg/mL Normal [facility] Comment on above: Order Comment: N Result Comment: NORM AL REFERENCE RANGES FEMALE FOLLICULAR 21.4 - 164.8 pg/mL MID-CYCLE PEAK 49.9 - 367.2 pg/mL LUTEAL 40.2 - 259.0 pg/mL POST-MENOPAUSAL ON MHT <11.0 - 462.1 pg/mL NOT ON MHT <11.0 - 58.3 pg/mL MALE <11.0 - 52.5 pg/mL NOTE: [facility] HAS CONFIRMED THE DRUG FULVETRANT (FASLODEX) MAY CAUSE FALSELY ELEVATED ESTRADIOL RESULTS WHEN USING THIS TEST METHOD. IF PATIENT IS TAKING FULVESTRANT AN ALTERNATIVE METHOD SHOULD BE USED TO DETERMINE ESTRADIOL CONCENTRATION. Performed By: #### L 501.9520, L100.0100 #### [facility] [address] [place], [address] FSH and LHon 04-20-2024 FSH 24.8 mIU/mL Normal [facility] Comment on above: Order Comment: N Result Comment: NORMAL REFERENCE RANGES FEMALE FOLLICULAR 2.3 - 12.6 mIU/mL MID-CYCLE PEAK 5.2 - 17.5 mIU/mL LUTEAL 1.7 - 12.9 mIU/mL POST-MENOPAUSAL ON MHT 5.9 - 72.8 mIU/mL NOT ON MHT 12.7 - 132.2 mlU/mL MALE 0.7 - 10.8 mIU/mL Performed By: #### L 506.0400, L3100.5055, L501.9520, L3300.1500, L501.9985, L3100.5310, L801.2600, L3300.1750, L500.4050, L509.6000 #### [facility] [address] [place], [address] LH 20.4 mIU/mL Normal [facility] Comment on above: Order Comment: N Result Comment: NORMAL REFERENCE RANGES FEMALE FOLLICULAR 1.9 - 26.2 mIU/mL MID-CYCLE PEAK 22.8 - 76.1 mIU/mL LUTEAL 0.6 - 16.6 mIU/mL POST-MENOPAUSAL ON MHT 1.1 - 52.4 mIU/mL NOT ON MHT 8.6 - 61.8 mIU/mL MALE 1.2 - 10.6 mIU/mL Performed By: #### L 506.0400, L3100.5055, L501.9520, L3300.1500, L501.9985, L3100.5310, L801.2600, L3300.1750, L500.4050, L509.6000 #### [facility] [address] [place], [place], [id number] Hemoglobin A1con 04-20-2024 HbA1c (Bld) [Mass fraction] 6.2 % High 3.8-5.6 [facility] Comment on above: Result Comment: Norm al < 5.7 % Prediabetic 5.7 - 6.4 % Diabetic >or= 6.5 % Please note range changes. Performed By: #### L 506.0400, L3100.5055, L501.9520, L3300.1500, L501.9985, L3100.5310, L801.2600, L3300.1750, L500.4050, L509.6000 #### [facility] [address] [facility] [place], [place], [id number] T4 Free Directon 04-20-2024 T4 FREE DIRECT 0.89 ng/dL Normal 0.76-1.46 [facility] Comment on above: Order Comment: N Performed By: #### L 506.0400, L3100.5055, L501.9520, L3300.1500, L501.9985, L3100.5310, L801.2600, L3300.1750, L500.4050, L509.6000 #### [facility] [address] [facility] [place], [place], [id number] Thyroid Stim Hormone (TSH)on 04-20-2024 TSH 5.440 uIU/mL High 0.358-3.740 [facility] Comment on above: Order Comment: N Performed By: #### L 506.0400, L3100.5055, L501.9520, L3300.1500, L501.9985, L3100.5310, L801.2600, L3300.1750, L500.4050, L509.6000 #### [facility] [address] [place], [address] CORTISOL SERUMon 04-05-2024 CORTISOL 16.20 ug/dL Normal 3.44-22.45 [facility] Comment on above: Result Comment: Adul t (AM) 5.27 - 22.45 ug/dL Adult (PM) 3.44 - 16.76 ug/dL Performed By: #### L 3100.5055, L509.6000, L3100.5310, L500.4050 ####[facility] [address] [place], [address] Comprehensive Metabolic Prof ilon 04-05-2024 ALB Normal 3.2-5.0 [facility] Comment on above: Order Comment: N Result Comment: COUL D ONLY OBTAIN CORTISOL SENT PATIENT TO OP PATIET DID NOT SHOW UP Performed By: #### L 3100.5055, L509.6000, L3100.5310, L500.4050 ####[facility] [address] [place], [address] ALK P Normal 45-117 [facility] Comment on above: Order Comment: N Result Comment: COUL D ONLY OBTAIN CORTISOL SENT PATIENT TO OP PATIET DID NOT SHOW UP Performed By: #### L 3100.5055, L509.6000, L3100.5310, L500.4050 ####[facility] [address] [place], [address] ALT Normal 13-56 [facility] Comment on above: Order Comment: N Result Comment: COUL D ONLY OBTAIN CORTISOL SENT PATIENT TO OP PATIET DID NOT SHOW UP Performed By: #### L 3100.5055, L509.6000, L3100.5310, L500.4050 ####[facility] [address] [place], [address] AST Normal 15-37 [facility] Comment on above: Order Comment: N Result Comment: COUL D ONLY OBTAIN CORTISOL SENT PATIENT TO OP PATIET DID NOT SHOW UP Performed By: #### L 3100.5055, L509.6000, L3100.5310, L500.4050 ####[facility] [address] [place], [address] BUN Normal 7-18 [facility] Comment on above: Order Comment: N Result Comment: COUL D ONLY OBTAIN CORTISOL SENT PATIENT TO OP PATIET DID NOT SHOW UP Performed By: #### L 3100.5055, L509.6000, L3100.5310, L500.4050 ####[facility] [address] [place], [address] BUN/CRE Normal 10-20 [facility] Comment on above: Order Comment: N Result Comment: COUL D ONLY OBTAIN CORTISOL SENT PATIENT TO OP PATIET DID NOT SHOW UP Performed By: #### L 3100.5055, L509.6000, L3100.5310, L500.4050 ####[facility] [address] [place], [address] CA,Total Normal 8.5-10.1 [facility] Comment on above: Order Comment: N Result Comment: COUL D ONLY OBTAIN CORTISOL SENT PATIENT TO OP PATIET DID NOT SHOW UP Performed By: #### L 3100.5055, L509.6000, L3100.5310, L500.4050 ####[facility] [address] [place], [address] CL Normal 98-107 [facility] Comment on above: Order Comment: N Result Comment: COUL D ONLY OBTAIN CORTISOL SENT PATIENT TO OP PATIET DID NOT SHOW UP Performed By: #### L 3100.5055, L509.6000, L3100.5310, L500.4050 ####[facility] [address] [place], [address] CO2 Normal 21.0-32.0 [facility] Comment on above: Order Comment: N Result Comment: COUL D ONLY OBTAIN CORTISOL SENT PATIENT TO OP PATIET DID NOT SHOW UP Performed By: #### L 3100.5055, L509.6000, L3100.5310, L500.4050 ####[facility] [address] [place], [address] CREAT,SERUM Normal 0.55-1.02 [facility] Comment on above: Order Comment: N Result Comment: COUL D ONLY OBTAIN CORTISOL SENT PATIENT TO OP PATIET DID NOT SHOW UP Performed By: #### L 3100.5055, L509.6000, L3100.5310, L500.4050 ####[facility] [address] [place], [address] EST GFR Normal >60 [facility] Comment on above: Order Comment: N Result Comment: COUL D ONLY OBTAIN CORTISOL SENT PATIENT TO OP PATIET DID NOT SHOW UP Performed By: #### L 3100.5055, L509.6000, L3100.5310, L500.4050 ####[facility] [address] [place], [address] EST GFR - AA Normal >60 [facility] Comment on above: Order Comment: N Result Comment: COUL D ONLY OBTAIN CORTISOL SENT PATIENT TO OP PATIET DID NOT SHOW UP Performed By: #### L 3100.5055, L509.6000, L3100.5310, L500.4050 ####[facility] [address] [place], [address] GAP Normal 5-15 [facility] Comment on above: Order Comment: N Result Comment: COUL D ONLY OBTAIN CORTISOL SENT PATIENT TO OP PATIET DID NOT SHOW UP Performed By: #### L 3100.5055, L509.6000, L3100.5310, L500.4050 ####[facility] [address] [place], [address] GLU Normal 74-106 [facility] Comment on above: Order Comment: N Result Comment: COUL D ONLY OBTAIN CORTISOL SENT PATIENT TO OP PATIET DID NOT SHOW UP Performed By: #### L 3100.5055, L509.6000, L3100.5310, L500.4050 ####[facility] [address] [place], [address] Potassium Normal 3.5-5.1 [facility] Comment on above: Order Comment: N Result Comment: COUL D ONLY OBTAIN CORTISOL SENT PATIENT TO OP PATIET DID NOT SHOW UP Performed By: #### L 3100.5055, L509.6000, L3100.5310, L500.4050 ####[facility] [address] [place], [address] T BILI Normal 0.20-1.00 [facility] Comment on above: Order Comment: N Result Comment: COUL D ONLY OBTAIN CORTISOL SENT PATIENT TO OP PATIET DID NOT SHOW UP Performed By: #### L 3100.5055, L509.6000, L3100.5310, L500.4050 ####[facility] [id number] [place], [address] T PROT Normal 6.4-8.2 [facility] Comment on above: Order Comment: N Result Comment: COUL D ONLY OBTAIN CORTISOL SENT PATIENT TO OP PATIET DID NOT SHOW UP Performed By: #### L 3100.5055, L509.6000, L3100.5310, L500.4050 ####[facility] [address] [place], [address] Comprehensive Metabolic Profil Normal 136-145 [facility] Comment on above: Order Comment: N Result Comment: COUL D ONLY OBTAIN CORTISOL SENT PATIENT TO OP PATIET DID NOT SHOW UP Performed By: #### L 3100.5055, L509.6000, L3100.5310, L500.4050 ####[facility] [address] [place], [address] FSH and LHon 04-05-2024 FSH Normal [facility] Comment on above: Order Comment: N Result Comment: COUL D ONLY OBTAIN CORTISOL SENT PATIENT TO OP PATIET DID NOT SHOW UP Performed By: #### L 3100.5055, L509.6000, L3100.5310, L500.4050 ####[facility] [address] [place], [address] LH Normal [facility] Comment on above: Order Comment: N Result Comment: COUL D ONLY OBTAIN CORTISOL SENT PATIENT TO OP PATIET DID NOT SHOW UP Performed By: #### L 3100.5055, L509.6000, L3100.5310, L500.4050 ####[facility] [address] [place], [address] Testosterone, Total / Freeon 04-05-2024 TESTOSTER,FREE Normal [facility] Comment on above: Order Comment: NN Result Comment: COUL D ONLY OBTAIN CORTISOL SENT PATIENT TO OP PATIET DID NOT SHOW UP Performed By: #### L 3100.5055, L509.6000, L3100.5310, L500.4050 ####[facility] [address] [place], [address] TESTOSTER,TOTAL Normal [facility] Comment on above: Order Comment: NN Result Comment: COUL D ONLY OBTAIN CORTISOL SENT PATIENT TO OP PATIET DID NOT SHOW UP Performed By: #### L 3100.5055, L509.6000, L3100.5310, L500.4050 ####[facility] [address] [place], [address] TESTOSTERONE,%F Normal 0.50-1.80 [facility] Comment on above: Order Comment: NN Result Comment: COUL D ONLY OBTAIN CORTISOL SENT PATIENT TO OP PATIET DID NOT SHOW UP Performed By: #### L 3100.5055, L509.6000, L3100.5310, L500.4050 ####[facility] [address] [place], [address] Internal Medicine Office Vis donovan 03-30-2024 Internal Medicine Office Visit [facility] [address] [place] [address] [place] [address] OFFICE VISIT Date of Service: 03/30/24 MR#: [id number] Acct: [id number] Name: BALJIT GERMAN Rep #: [id number] : 1970 Provider: TARYN Rodriguez Age/Sex: 54/F Location: [facility] [place].[facility] Status: Signed Intake Vital Signs 02/27/24 18:14 03/30/24 14:41 Height 5 ft 4 in 5 ft 4 in Weight: 262 lb BMI 44.9 BP 140/70 H Blood Pressure Location Lt brachial Position Sitting Respiration 16 Pulse 68 Pulse Source Monitor Temp 97.6 F L Temp Source Temporal Pulse Oximetry (%) 99 Oxygen Delivery Method room air Intake Visit Reasons: ACUTE MED FU Chief Complaint: med f/u 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 Accompanied by: Self Is patient in pain?: No Allergies codeine Allergy (Verified 03/30/24 14:37) Itching lisinopril Allergy (Verified 03/30/24 14:37) Angioedema Medications ???Medication ???Instructions ???Recorded ???Confirmed ???Type acetaminophen 500 mg tablet 500 - 1,000 mg (1 - 2 x 500 mg) PO 12/18/21 03/30/24 Rx (Tylenol Extra Strength) Q6H PRN pain #60 tabs SEA ELIZONDO GEL 1 tsp PO DAILY 10/16/22 03/30/24 History ashwagandha extract 120 mg capsule 120 mg PO DAILY 10/16/22 03/30/24 History lidocaine 4 % topical patch See Rx Instructions .Route 07/20/23 03/30/24 Rx .COMPLEX #60 patches conjugated estrogens 0.9 mg tablet 0.9 mg PO DAILY #90 tabs 10/22/23 03/30/24 Rx duloxetine 30 mg capsule,delayed 30 mg PO BID #60 caps 10/27/23 03/30/24 Rx release (Cymbalta) amlodipine 10 mg tablet See Rx Instructions .Route 02/15/24 03/30/24 Rx .COMPLEX #60 tabs hydrochlorothiazide 12.5 mg tablet See Rx Instructions .Route 03/14/24 03/30/24 Rx .COMPLEX #30 tabs levothyroxine 112 mcg tablet See Rx Instructions .Route 03/14/24 03/30/24 Rx .COMPLEX #30 tabs PFSH Medical History Tear of medial meniscus of right knee Left wrist pain Right knee pain Thyromegaly Ear discomfort Post-menopausal Alcohol use History of steroid therapy Thyroid disease Back pain History of pain when walking History of edema Normal stress echocardiogram History of echocardiogram Cardiology follow-up encounter Pre-op evaluation Prediabetes Generalized anxiety disorder Adjustment disorder Vitamin D deficiency Wears partial dentures Wears glasses Loose, teeth Substance abuse Marijuana use Depression Hypothyroid Arthritis Gastric reflux Smoker Upper respiratory infection Exposure to COVID-19 virus Suspected COVID-19 virus infection Hypersomnolence Chronic back pain Urticaria Anxiety Excessive somnolence disorder Hypertension Hypothyroidism (acquired) Abnormal EKG ADHD (attention deficit hyperactivity disorder) Labyrinthitis Vertigo Surgical History Status post arthroscopic surgery of left knee Hx of tooth extraction Hx of wisdom tooth extraction History of bilateral carpal tunnel release History of appendectomy History of hysterectomy History of tubal ligation Family History Sister , of [place] CAD (coronary artery disease) Myocardial infarction Sudden cardiac Father Pancreatic cancer Social History Smoking Status: Current every day smoker tobacco type: cigarettes Tobacco: How many years used: 30 alcohol intake: current alcohol intake frequency: holidays/special occasions only substance use type: marijuana what type of physical activity do you participate in: none HPI HPI Chief Complaint: med f/u Details: BALJIT GERMAN, is a 54 F who presents to the office today to see about having some blood work to check some hormone levels. She states that she has just struggled with her weight does not feel like she has the energy she once did or the pep for life and is just wondering about these as she gets older. She denies hot flashes currently She denies any excessive hunger or thirst She does have some difficulties falling asleep but once she does she stays asleep She does have recurrent headaches No regular / persisting visual changes although states occasionally feels like there is some blurriness. She just recently saw the eye doctor last week Patient does have chronic low back pain secondary to neurogenic claudication. Patient does have some chronic knee pains. ROS Const Constitutional: No body ache, chills, excessive sweating, fatigue, fever(s), frequent falls, headache(s), snoring, weakness or change in appetite Eyes Eyes: No blurry vision, change in vision, eye pain or Light sensitivity ENT ENT: No abnormal hearing, ear or mastoid pain, tinnitus, nasal congestion, h (more content not included)... Normal [facility] Emergency Department Summary on 02-27-2024 Emergency Department Summary [facility] Medical Records Department [address] [place] [address] Emergency Department Summary 02/27/24 MR#: [id number] Acct: [id number] Name: BALJIT GERMAN Rep #: [id number] : 1970 54 From: Marcos Moraes PCP: Dr. Erika Reynolds MD Status:DEP ER Location: ED HPI History of Present Illness Chief Complaint: General Illness Informant: patient Narrative Narrative: Presenting complaints mild cough today with mild sore throat. No fevers. She states 2 weeks ago seen [facility] twice for groin rash she is on antifungals. She reported she had concerns for pinworms however denied any anal itching. She states things are crawling on her legs. She saw a white substance in her mouth. In addition, went to [facility] for right lower dental pain currently on clindamycin. Denies sick contacts. She reports she had COVID 2 weeks ago with home test along with positive test at [facility] that was faint per patient. [facility] Medical History Tear of medial meniscus of right knee Left wrist pain Right knee pain Thyromegaly Ear discomfort Post-menopausal Alcohol use History of steroid therapy Thyroid disease Back pain History of pain when walking History of edema Normal stress echocardiogram History of echocardiogram Cardiology follow-up encounter Pre-op evaluation Prediabetes Generalized anxiety disorder Adjustment disorder Vitamin D deficiency Wears partial dentures Wears glasses Loose, teeth Substance abuse Marijuana use Depression Hypothyroid Arthritis Gastric reflux Smoker Upper respiratory infection Exposure to COVID-19 virus Suspected COVID-19 virus infection Hypersomnolence Chronic back pain Urticaria Anxiety Excessive somnolence disorder Hypertension Hypothyroidism (acquired) Abnormal EKG ADHD (attention deficit hyperactivity disorder) Labyrinthitis Vertigo Home Medications ???Medication ???Instructions ???Recorded ???Last Taken ???Type acetaminophen 500 mg tablet 500 - 1,000 mg (1 - 2 x 500 mg) PO 12/18/21 Unknown Rx (Tylenol Extra Strength) Q6H PRN pain #60 tabs SEA ELIZONDO GEL 1 tsp PO DAILY 10/16/22 Unknown History ashwagandha extract 120 mg capsule 120 mg PO DAILY 10/16/22 Unknown History lidocaine 4 % topical patch See Rx Instructions .Route 07/20/23 Unknown Rx .COMPLEX #60 patches conjugated estrogens 0.9 mg tablet 0.9 mg PO DAILY #90 tabs 10/22/23 Unknown Rx duloxetine 30 mg capsule,delayed 30 mg PO BID #60 caps 10/27/23 Unknown Rx release (Cymbalta) levothyroxine 112 mcg tablet See Rx Instructions .Route 12/01/23 Unknown Rx .COMPLEX #90 tabs lorazepam 2 mg tablet (Ativan) 2 mg PO ONCE claustrohobia #2 tabs 12/10/23 Unknown Rx hydrochlorothiazide 12.5 mg tablet See Rx Instructions .Route 12/11/23 Unknown Rx .COMPLEX #90 tabs amlodipine 10 mg tablet See Rx Instructions .Route 02/15/24 Unknown Rx .COMPLEX #60 tabs nystatin 100,000 unit/gram topical 1 applic topical TID #60 grams 02/20/24 Unknown Rx powder clotrimazole-betamethas one 1 1 applic topical BID 4 weeks #30 mL 02/25/24 Unknown Rx %-0.05 % lotion fluconazole 150 mg tablet 150 mg PO Q3D 2 doses #2 tabs 02/25/24 Unknown Rx Allergy/AdvReac Type Severity Reaction Status Date / Time codeine Allergy Itching Verified 02/27/24 18:13 lisinopril Allergy Angioedema Verified 02/27/24 18:13 Family History Sister , of [place] CAD (coronary artery disease) Myocardial infarction Sudden cardiac Father Pancreatic cancer Surgical History Status post arthroscopic surgery of left knee Hx of tooth extraction Hx of wisdom tooth extraction History of bilateral carpal tunnel release History of appendectomy History of hysterectomy History of tubal ligation Social History Smoking Status: Current every day smoker tobacco type: cigarettes Tobacco: How many years used: 30 alcohol intake: current alcohol intake frequency: holidays/special occasions only substance use type: marijuana what type of physical activity do you participate in: none ROS ROS ED Constitutional Constitutional ED: Denies chills, fever(s) or sweats Eyes Eyes: Denies change in vision ENT ENT ED: Reports sore throat; Denies dysphagia Cardiovascular Cardiovascular: Denies chest pain, leg edema, palpitations or racing heartbeat Respiratory/Chest Respiratory/Chest: Reports cough; Denies dyspnea or dyspnea on exertion Gastrointestinal Gastrointestinal: Denies abdominal pain, diarrhea, nausea or vomiting Genitourinary Genitourinary ED: Denies dysuria, hematuria or urinary frequency Musculoskeletal Musculo (more content not included)... Normal [facility] Urgent Care Visit Reporton 1 Urgent Care Visit Report [facility] [address], [address] [place] [address] OFFICE VISIT Date of Service: 02/25/24 MR#: [id number] Acct: [id number] Name: BALJIT GERMAN Rep #: [id number] : 1970 Provider: TARYN Greene Age/Sex: 54/F Location: [facility] [place] Status: Signed Intake Vital Signs 01/30/24 16:50 02/25/24 14:39 Height 5 ft 4 in 5 ft 4 in Weight: 250 lb BMI 42.9 BP 130/82 H Blood Pressure Location Lt brachial Position Sitting Respiration 16 Pulse 108 H Pulse Source Monitor Temp 98.0 F Temp Source Temporal Pulse Oximetry (%) 98 Oxygen Delivery Method room air Intake Visit Reasons: FUNGAL INFECTION Chief Complaint: FUNGAL INFECTION 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 Accompanied by: Self Is patient in pain?: No Allergies codeine Allergy (Verified 02/25/24 14:40) Itching lisinopril Allergy (Verified 02/25/24 14:40) Angioedema Medications ???Medication ???Instructions ???Recorded ???Confirmed ???Type acetaminophen 500 mg tablet 500 - 1,000 mg (1 - 2 x 500 mg) PO 12/18/21 02/25/24 Rx (Tylenol Extra Strength) Q6H PRN pain #60 tabs SEA ELIZONDO GEL 1 tsp PO DAILY 10/16/22 02/25/24 History ashwagandha extract 120 mg capsule 120 mg PO DAILY 10/16/22 02/25/24 History lidocaine 4 % topical patch See Rx Instructions .Route 07/20/23 02/25/24 Rx .COMPLEX #60 patches conjugated estrogens 0.9 mg tablet 0.9 mg PO DAILY #90 tabs 10/22/23 02/25/24 Rx duloxetine 30 mg capsule,delayed 30 mg PO BID #60 caps 10/27/23 02/25/24 Rx release (Cymbalta) levothyroxine 112 mcg tablet See Rx Instructions .Route 12/01/23 02/25/24 Rx .COMPLEX #90 tabs lorazepam 2 mg tablet (Ativan) 2 mg PO ONCE claustrohobia #2 tabs 12/10/23 02/25/24 Rx hydrochlorothiazide 12.5 mg tablet See Rx Instructions .Route 12/11/23 02/25/24 Rx .COMPLEX #90 tabs amlodipine 10 mg tablet See Rx Instructions .Route 02/15/24 02/25/24 Rx .COMPLEX #60 tabs nystatin 100,000 unit/gram topical 1 applic topical TID #60 grams 02/20/24 02/25/24 Rx powder clotrimazole-betamethas one 1 1 applic topical BID 4 weeks #30 mL 02/25/24 02/25/24 Rx %-0.05 % lotion fluconazole 150 mg tablet 150 mg PO Q3D 2 doses #2 tabs 02/25/24 02/25/24 Rx PFSH Medical History Tear of medial meniscus of right knee Left wrist pain Right knee pain Thyromegaly Ear discomfort Post-menopausal Alcohol use History of steroid therapy Thyroid disease Back pain History of pain when walking History of edema Normal stress echocardiogram History of echocardiogram Cardiology follow-up encounter Pre-op evaluation Prediabetes Generalized anxiety disorder Adjustment disorder Vitamin D deficiency Wears partial dentures Wears glasses Loose, teeth Substance abuse Marijuana use Depression Hypothyroid Arthritis Gastric reflux Smoker Upper respiratory infection Exposure to COVID-19 virus Suspected COVID-19 virus infection Hypersomnolence Chronic back pain Urticaria Anxiety Excessive somnolence disorder Hypertension Hypothyroidism (acquired) Abnormal EKG ADHD (attention deficit hyperactivity disorder) Labyrinthitis Vertigo Surgical History Status post arthroscopic surgery of left knee Hx of tooth extraction Hx of wisdom tooth extraction History of bilateral carpal tunnel release History of appendectomy History of hysterectomy History of tubal ligation Family History Sister , of [place] CAD (coronary artery disease) Myocardial infarction Sudden cardiac Father Pancreatic cancer Social History Smoking Status: Current every day smoker tobacco type: cigarettes Tobacco: How many years used: 30 alcohol intake: current alcohol intake frequency: holidays/special occasions only substance use type: marijuana what type of physical activity do you participate in: none HPI HPI Chief Complaint: FUNGAL INFECTION Details: BALJIT GERMAN, is a 54 F who presents to the office today for complaint of ongoing fungal infection. Patient states that she continues to have a fungal infection around her abdomen despite the use of the powder given to her previously. Patient states that she has been using the powder 3 times a day. She states that there is only been minor improvement. She also states that she was just started on clindamycin for a dental infection. No other associated symptoms or alleviating/aggravating factors. ROS Const Constitutional: Positive for other (ROS negative x6 except what was placed in HPI) Exam Const General: cooperative, comfortable and no acute distress Or (more content not included)... Normal [facility] Urgent Care Visit Reporton 1 Urgent Care Visit Report [facility] [address] , [address] [place], [place] [address] OFFICE VISIT Date of Service: 02/20/24 MR#: [id number] Acct: [id number] Name: BALJIT GERMAN Rep #: [id number] : 1970 Provider: ML Early Age/Sex: 54/F Location: [facility] Status: Signed Intake Vital Signs 01/30/24 16:50 02/20/24 11:03 Height 5 ft 4 in BP 136/80 H Blood Pressure Location Lt brachial Position Sitting Respiration 14 Pulse 79 Pulse Source NIBP Temp 97.7 F L Temp Source Temporal Pulse Oximetry (%) 98 Oxygen Delivery Method room air Intake Visit Reasons: CHEST CONGESTION/ RASH ON STOMACH Chief Complaint: chest congest, MONCADA, fatigue, cough and rash 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 Is patient in pain?: No Allergies codeine Allergy (Verified 02/20/24 11:13) Itching lisinopril Allergy (Verified 02/20/24 11:13) Angioedema Medications ???Medication ???Instructions ???Recorded ???Confirmed ???Type acetaminophen 500 mg tablet 500 - 1,000 mg (1 - 2 x 500 mg) PO 12/18/21 02/20/24 Rx (Tylenol Extra Strength) Q6H PRN pain #60 tabs SEA ELIZONDO GEL 1 tsp PO DAILY 10/16/22 02/20/24 History ashwagandha extract 120 mg capsule 120 mg PO DAILY 10/16/22 02/20/24 History lidocaine 4 % topical patch See Rx Instructions .Route 07/20/23 02/20/24 Rx .COMPLEX #60 patches conjugated estrogens 0.9 mg tablet 0.9 mg PO DAILY #90 tabs 10/22/23 02/20/24 Rx duloxetine 30 mg capsule,delayed 30 mg PO BID #60 caps 10/27/23 02/20/24 Rx release (Cymbalta) levothyroxine 112 mcg tablet See Rx Instructions .Route 12/01/23 02/20/24 Rx .COMPLEX #90 tabs lorazepam 2 mg tablet (Ativan) 2 mg PO ONCE claustrohobia #2 tabs 12/10/23 02/20/24 Rx hydrochlorothiazide 12.5 mg tablet See Rx Instructions .Route 12/11/23 02/20/24 Rx .COMPLEX #90 tabs amlodipine 10 mg tablet See Rx Instructions .Route 02/15/24 02/20/24 Rx .COMPLEX #60 tabs nystatin 100,000 unit/gram topical 1 applic topical TID #60 grams 02/20/24 02/20/24 Rx powder Is last menstrual period known: No Post menopausal: Yes Patient : No Have you fallen in the past year?: No Nurse's Note: chest congest, MONCADA, fatigue, cough x 2 days. covid + last week, concerned she has it again. also c/o rash to groin, was googling and concerned about a parasite. [facility] Medical History Tear of medial meniscus of right knee Left wrist pain Right knee pain Thyromegaly Ear discomfort Post-menopausal Alcohol use History of steroid therapy Thyroid disease Back pain History of pain when walking History of edema Normal stress echocardiogram History of echocardiogram Cardiology follow-up encounter Pre-op evaluation Prediabetes Generalized anxiety disorder Adjustment disorder Vitamin D deficiency Wears partial dentures Wears glasses Loose, teeth Substance abuse Marijuana use Depression Hypothyroid Arthritis Gastric reflux Smoker Upper respiratory infection Exposure to COVID-19 virus Suspected COVID-19 virus infection Hypersomnolence Chronic back pain Urticaria Anxiety Excessive somnolence disorder Hypertension Hypothyroidism (acquired) Abnormal EKG ADHD (attention deficit hyperactivity disorder) Labyrinthitis Vertigo Surgical History Status post arthroscopic surgery of left knee Hx of tooth extraction Hx of wisdom tooth extraction History of bilateral carpal tunnel release History of appendectomy History of hysterectomy History of tubal ligation Family History Sister , of [place] CAD (coronary artery disease) Myocardial infarction Sudden cardiac Father Pancreatic cancer Social History Smoking Status: Current every day smoker tobacco type: cigarettes Tobacco: How many years used: 30 alcohol intake: current alcohol intake frequency: holidays/special occasions only substance use type: marijuana what type of physical activity do you participate in: none HPI HPI Chief Complaint: chest congest, MONCADA, fatigue, cough and rash Details: BALJIT GERMAN, is a 54 F who presents to the office today for cough -home test for covid last Thursday- no hospitalization- still with cough and congestion -tried so far a whole bunch of otc cold/cough/congestion meds -rash to abd- thinks has parasite- looked up into on google- no pain or itching- comes and goes -in office covid weak + -+ smoker- cigarettes ROS Const Constitutional: Positive for other (ROS negative x6 except what was placed in HPI) Exam Const General: cooperative, comfortable and no acute distress Orientation: aler (more content not included)... Normal [facility] 12 Lead EKGon 01-30-2024 12 Lead EKG [facility] [address] [place] [address] 12 Lead EKG 01/30/24 1655 MR#: [id number] Acct: [id number] Name: BALJIT GERMAN Rep #: [id number] : 1970 54 From: Kai Lucero MD Attending Dr: Status: DEP ER Ordering Dr: Patrick Machuca MD Date: 01/30/24 Location: ED Sex: F AA Admitted: Test Reason : CP Blood Pressure : / mmHG Vent. Rate : 064 BPM Atrial Rate : 064 BPM P-R Int : 174 ms QRS Dur : 084 ms QT Int : 414 ms P-R-T Axes : 038 -09 061 degrees QTc Int : 427 ms Normal sinus rhythm Minimal voltage criteria for LVH, may be normal variant ( R in aVL ) Borderline ECG Confirmed by Kai Lucero ([id number]), website/blog editor BARBIE SUNG ([id number]) on 02/01/2024 10:09:51 AM Referred By: BB/TA Confirmed By:Kai Lucero 02/01/24 1010 Date Kai Lucero MD CC: Dr. Patrick Machuca MD; Dr. Erika Reynolds MD Signed Normal [facility] Basic Metabolic Profile (BMP )on 01-30-2024 BUN/CRE 12.6 RATIO Normal 10-20 [facility] Comment on above: Order Comment: 1Y Performed By: #### L 501.0738, L500.2500, L300.8000, L100.0100 ####[facility] [address] [place], [address] CA,Total 9.5 mg/dL Normal 8.5-10.1 [facility] Comment on above: Order Comment: 1Y Performed By: #### L 501.5425, L500.2500, L300.8000, L100.0100 ####[facility] [address] [place], [address] Chloride [Moles/Vol] 104 mmol/L Normal 98-107 [facility] Comment on above: Order Comment: 1Y Performed By: #### L 501.5425, L500.2500, L300.8000, L100.0100 ####[facility] [address] [place], [address] CO2 [Moles/Vol] 26.0 mmol/L Normal 21.0-32.0 [facility] Comment on above: Order Comment: 1Y Performed By: #### L 501.5425, L500.2500, L300.8000, L100.0100 ####[facility] [address] [place], [address] Creatinine [Mass/Vol] 1.11 mg/dL High 0.55-1.02 [facility] Comment on above: Order Comment: 1Y Result Comment: The validity of the calculated GFR GFRAA in patients over 70 years has not been determined. Clinical correlation is essential. Performed By: #### L 501.5425, L500.2500, L300.8000, L100.0100 ####[facility] [address] [place], [address] ECRCL 74.90 ml/min Normal [facility] Comment on above: Order Comment: 1Y Performed By: #### L 501.5425, L500.2500, L300.8000, L100.0100 ####[facility] [address] [place], [address] EST GFR - AA 66 mL/min Normal >60 [facility] Comment on above: Order Comment: 1Y Result Comment: Afri can Afghan GFR Calc Performed By: #### L 501.5425, L500.2500, L300.8000, L100.0100 ####[facility] [address] [place], [address] GAP 5 Normal 5-15 [facility] Comment on above: Order Comment: 1Y Performed By: #### L 501.5425, L500.2500, L300.8000, L100.0100 ####[facility] [address] [place], [address] GFR/1.73 sq M.predicted among non-blacks MDRD (S/P/Bld) [Vol rate/Area] 55 mL/min/{1.73_m2} Low >60 [facility] Comment on above: Order Comment: 1Y Result Comment: Non- GFR Calc Performed By: #### L 501.5425, L500.2500, L300.8000, L100.0100 ####[facility] [address] [place], [address] Glucose [Mass/Vol] 93 mg/dL Normal 74-106 [facility] Comment on above: Order Comment: 1Y Performed By: #### L 501.5425, L500.2500, L300.8000, L100.0100 ####[facility] [address] [place], [address] Potassium [Moles/Vol] 5.3 mmol/L High 3.5-5.1 [facility] Comment on above: Order Comment: 1Y Result Comment: Mode rate Hemolysis, Result may be falsely increased. Performed By: #### L 501.5425, L500.2500, L300.8000, L100.0100 ####[facility] [id number] [place], [address] Sodium [Moles/Vol] 135 mmol/L Low 136-145 [facility] Comment on above: Order Comment: 1Y Performed By: #### L 501.5425, L500.2500, L300.8000, L100.0100 ####[facility] [address] [place], [address] Urea nitrogen [Mass/Vol] 14 mg/dL Normal 7-18 [facility] Comment on above: Order Comment: 1Y Performed By: #### L 501.5425, L500.2500, L300.8000, L100.0100 ####[facility] [address] [place], [address] CBC W/Diff, Automatedon 01-16 SMEAR COMMENT SCANNED Normal [facility] Comment on above: Performed By: #### L 501.5425, L500.2500, L300.8000, L100.0100 ####[facility] [address] [place], [address] Chest 1 View (Portable)on Chest 1 View (Portable) [facility] Imaging Services [address] [place] [address] Chest 1 View (Portable) MR#: [id number] Acct: [id number] Name: BALJIT GERMAN Rep #: [id number] : 1970 F 54 From: Erik Corbett DO PCP: Dr. Erika Reynolds MD Status: [facility] ER Study: Chest 1 View (Portable) Date of Exam: 01/30/24 Exam# [id number] Ordering [place]: [place] [id number] INDICATION: chest pain EXAMINATION/TECHNIQUE: X-RAY - XR Chest 1 View COMPARISON: FINDINGS: LINES/DEVICES: None. LUNGS: No consolidation, edema or effusion. No pneumothorax. MEDIASTINUM AND CARDIOVASCULAR STRUCTURES: Cardiac silhouette not enlarged. Central airways and mediastinal contour are unremarkable. BONES AND SOFT TISSUES: Degenerative vertebral changes. RAD/Chest 1 View (Portable) IMPRESSION: No radiographic evidence of acute cardiopulmonary disease. Electronically Signed: Erik DO Aric at 18:39 EDT , CC: Dr. Patrick Machuca MD; Dr. Erika Reynolds MD Sieve Repairer: Signed Normal [facility] D-Dimer Quantitative (DVT/PE )on 01-30-2024 D-DIMER QUANT 0.37 FEU/ug/m Normal 0.27-0.49 [facility] Comment on above: Result Comment: NORM AL D-Dimer level (<0.50) indicates no DVT or PE. Performed By: #### L 501.5425, L500.2500, L300.8000, L100.0100 ####[facility] [address] [facility] [place], [address] Emergency Department Summary on 01-30-2024 Emergency Department Summary [facility] Medical Records Department [address] [place] [address] Emergency Department Summary 01/30/24 MR#: [id number] Acct: [id number] Name: BALJIT GERMAN Rep #: [id number] : 1970 54 From: Patrick Machuca MD PCP: Dr. Erika Reynolds MD Status:REG ER Location: ED HPI History of Present Illness Chief Complaint: Chest Pain Informant: patient and family Narrative Narrative: 54-year-old female states she has had left lower lip swelling and chest discomfort radiating to her left arm and her left neck for the past hour or 2. She states the lip swelling she thinks is from some THC rub that she was putting on some areas of her body and accidentally got some on her lip in this area. Started getting numb and then she washed it off and later started getting swollen. She denies any dyspnea but has been having some dyspnea on exertion for the last 2 or 3 weeks that is new for her. She does not have a history of heart or lung problems but she does have a history of a DVT that was provoked after knee surgery. This was about a year or so ago, she is not taking anticoagulants anymore and has no symptoms of a DVT recently or long immobilization/hospital ization or surgery recently. She did have angioedema in the past when she was taking lisinopril, she has been off of it ever since and instead is on Norvasc. [facility] Medical History Tear of medial meniscus of right knee Left wrist pain Right knee pain Thyromegaly Ear discomfort Post-menopausal Alcohol use History of steroid therapy Thyroid disease Back pain History of pain when walking History of edema Normal stress echocardiogram History of echocardiogram Cardiology follow-up encounter Pre-op evaluation Prediabetes Generalized anxiety disorder Adjustment disorder Vitamin D deficiency Wears partial dentures Wears glasses Loose, teeth Substance abuse Marijuana use Depression Hypothyroid Arthritis Gastric reflux Smoker Upper respiratory infection Exposure to COVID-19 virus Suspected COVID-19 virus infection Hypersomnolence Chronic back pain Urticaria Anxiety Excessive somnolence disorder Hypertension Hypothyroidism (acquired) Abnormal EKG ADHD (attention deficit hyperactivity disorder) Labyrinthitis Vertigo Home Medications ???Medication ???Instructions ???Recorded ???Last Taken ???Type acetaminophen 500 mg tablet 500 - 1,000 mg (1 - 2 x 500 mg) PO 12/18/21 Unknown Rx (Tylenol Extra Strength) Q6H PRN pain #60 tabs SEA ELIZONDO GEL 1 tsp PO DAILY 10/16/22 Unknown History ashwagandha extract 120 mg capsule 120 mg PO DAILY 10/16/22 Unknown History lidocaine 4 % topical patch See Rx Instructions .Route 07/20/23 Unknown Rx .COMPLEX #60 patches amlodipine 10 mg tablet See Rx Instructions .Route 09/04/23 Unknown Rx .COMPLEX #90 tabs conjugated estrogens 0.9 mg tablet 0.9 mg PO DAILY #90 tabs 10/22/23 Unknown Rx duloxetine 30 mg capsule,delayed 30 mg PO BID #60 caps 10/27/23 Unknown Rx release (Cymbalta) levothyroxine 112 mcg tablet See Rx Instructions .Route 12/01/23 Unknown Rx .COMPLEX #90 tabs lorazepam 2 mg tablet (Ativan) 2 mg PO ONCE claustrohobia #2 tabs 12/10/23 Unknown Rx hydrochlorothiazide 12.5 mg tablet See Rx Instructions .Route 12/11/23 Unknown Rx .COMPLEX #90 tabs Allergy/AdvReac Type Severity Reaction Status Date / Time codeine Allergy Itching Verified 01/30/24 16:50 lisinopril Allergy Angioedema Verified 01/30/24 16:50 Family History Sister , of [place] CAD (coronary artery disease) Myocardial infarction Sudden cardiac Father Pancreatic cancer Surgical History Status post arthroscopic surgery of left knee Hx of tooth extraction Hx of wisdom tooth extraction History of bilateral carpal tunnel release History of appendectomy History of hysterectomy History of tubal ligation Social History Smoking Status: Current every day smoker tobacco type: cigarettes Tobacco: How many years used: 30 alcohol intake: current alcohol intake frequency: holidays/special occasions only substance use type: marijuana what type of physical activity do you participate in: none ROS ROS ED Constitutional Constitutional ED: Denies chills or fever(s) Eyes Eyes: Denies change in vision or diplopia ENT ENT ED: Reports other Details: lower lip swelling ; Denies rhinorrhea or sore throat Cardiovascular Cardiovascular: Reports as per HPI, chest pain and radiating jaw, neck or arm pain; Denies lightheadedness, palpitations or syncope Respiratory/Chest Respiratory/Chest: Denies cough or (more content not included)... Normal [facility] L501.4020on 01-30-2024 TROPONIN-I HS 6 pg/mL Normal 3.0-54.0 [facility] Comment on above: Result Comment: Plea se Note: New Test Units and Gender Specific Reference Ranges. For more information see Policy Stat Procedure Julian High Sensitivity Troponin (TNIH) and attachments. Performed By: #### L 506.0400, L3100.5055, L501.9520, L3300.1500, L501.9985, L3100.5310, L801.2600, L3300.1750, L500.4050, L509.6000 #### [facility] [address] [place], [place], [id number] L501.5425on 01-30-2024 TROPONIN-I HS 6 pg/mL Normal 3.0-54.0 [facility] Comment on above: Order Comment: 1Y Result Comment: Kevin isaac Note: New Test Units and Gender Specific Reference Ranges. For more information see Policy Stat Procedure Julian High Sensitivity Troponin (TNIH) and attachments. Performed By: #### L 501.5425, L500.2500, L300.8000, L100.0100 ####[facility] [address] [place], [address] Absolute lymphocyte counton 02-11-2022 Lymphocytes Auto (Unsp spec) [#/Vol] 4.28 10*3/uL 0.83-4.51 [facility] Work Phone: Basophil percentageon 2021 Basophils/100 WBC (Bld) 1.0 % 0-1 [facility] Work Phone: Bilirubin [Mass/Vol] 0.10 mg/dL 0.20-1.00 [facility] Work Phone: Comment on above: For patients on eltr ombopag therapy, use of Dimension Julian TBIL is not recommended. Chloride [Moles/Vol] 103 mmol/L 98-107 [facility] Work Phone: Cholesterol [Mass/Vol] 190 mg/dL <200 [facility] Work Phone: Comment on above: <200 mg/dL Desirable 200-240 mg/dL Borderline >240 mg/dL High Risk Eosinophils/100 WBC (Bld) 3.3 % 0-5 [facility] Work Phone: Glucose [Mass/Vol] 117 mg/dL 74-106 [facility] Work Phone: Comment on above: Fasting Glucose resu lt from 100 to 125 mg/dL suggests IMPAIRED HOMEOSTASIS per A.D.A. criteria. Neutrophils (Bld) [#/Vol] 2.9 10*3/uL 2.0-7.7 [facility] Work Phone: Neutrophils/100 WBC (Bld) 35.4 % 47-70 [facility] Work Phone: Potassium [Moles/Vol] 3.7 mmol/L 3.5-5.1 [facility] Work Phone: Protein [Mass/Vol] 7.6 g/dL 6.4-8.2 [facility] Work Phone: Sodium [Moles/Vol] 138 mmol/L 136-145 [facility] Work Phone: Triglyceride [Mass/Vol] 79 mg/dL <199 [facility] Work Phone: Comment on above: The drugs N-Acetylcy steine and Metamizole may falsely depress this assay.Serum Triglycerides Reference Interval Normal <150 mg/dL Borderline high 150 - 199 mg/dL High 200 - 499 mg/dL Very High > or = 500 mg/dL WBC (Bld) [#/Vol] 8.2 10*3/uL 4.4-11.0 [facility] Work Phone: Blood erythrocytes count (nu mber/volume)on 02-11-2022 RBC (Bld) [#/Vol] 4.53 10*6/uL 4.2-5.4 [facility] Work Phone: Blood hemoglobin measurement (mass/volume)on 02-11-2022 Hemoglobin (Bld) [Mass/Vol] 12.5 g/dL 12.0-15.0 [facility] Work Phone: Blood lymphocytes/100 leukoc yteson 02-11-2022 Lymphocytes/100 WBC (Bld) 52.5 % 19-41 [facility] Work Phone: Blood monocytes/100 leukocyt eson 02-11-2022 Monocytes/100 WBC (Bld) 7.6 % 0-10 [facility] Work Phone: Blood platelet mean volumeon 02-11-2022 Platelet mean volume (Bld) [Entitic vol] 10.5 fL 6.2-12.0 [facility] Work Phone: Determination of erythrocyte mean corpuscular volume (MCV)on 02-11-2022 MCV (RBC) [Entitic vol] 87.6 fL 81-99 [facility] Work Phone: Hematocrit Auto (Bld) [Volum e fraction]on 02-11-2022 Hematocrit (Bld) [Volume fraction] 39.7 % 37-47 [facility] Work Phone: Laboratory - Chemistry and C hemistry - challengeon 02-11-2022 ALP [Catalytic activity/Vol] 100 U/L 45-117 [facility] Work Phone: ALT [Catalytic activity/Vol] 25 U/L 13-56 [facility] Work Phone: CO2 [Moles/Vol] 27.0 mmol/L 21.0-32.0 [facility] Work Phone: Cobalamin (Vitamin B12) [Mass/Vol] 470 pg/mL 211-911 [facility] Work Phone: Globulin (S) [Mass/Vol] 4.3 g/dL 2.2-4.2 [facility] Work Phone: Urea nitrogen/Creatinine [Mass ratio] 12.4 mg/mg 10-20 [facility] Work Phone: Laboratory - Hematology and Cell countson 02-11-2022 Erythrocyte distribution width (RBC) [Entitic vol] 39.5 fL 35.1-43.9 [facility] Work Phone: Erythrocyte distribution width (RBC) [Ratio] 12.3 % 11.6-14.6 [facility] Work Phone: Immature granulocytes/100 WBC (Bld) 0.200 % 0.0-0.9 [facility] Work Phone: Comment on above: IG% - Immature Granu locytes (promyelocytes, myelocytes and metamyelocytes) > 1% indicates that a LEFT SHIFT is Present. MCH (RBC) [Entitic mass] 27.6 pg 27.0-32.0 [facility] Work Phone: Nucleated RBC/100 WBC (Bld) [Ratio] 0 % 0-5 [facility] Work Phone: MCHC Auto (RBC) [Mass/Vol]on 02-11-2022 MCHC (RBC) [Mass/Vol] 31.5 g/dL 32-36 [facility] Work Phone: No Panel Informationon 02-11 Estimated GFR (MDRD) Amer 79 mL/min >60 [facility] Work Phone: Comment on above: GFR Calc Estimated GFR (MDRD) Non-Af Amer 65 mL/min >60 [facility] Work Phone: Comment on above: Non- GFR Calc Thyroid Stimulating Hormone (TSH) 5.48 uIU/mL 0.358-3.74 [facility] Work Phone: Vitamin D 25-Hydroxy 14.8 ng/mL [facility] Work Phone: Comment on above: Vitamin D 25(OH) Sta tus Range Deficiency <20 ng/mL (50nmol/L) Insufficiency 20 - 30 ng/mL (50 - 75 nmol/L) Sufficiency 30 - 100 ng/mL (75 - 250 nmol/L) Toxicity >100 ng/mL (>250 nmol/L) Platelets bldon 02-11-2022 Platelets (Bld) [#/Vol] 324 10*3/uL 150-450 [facility] Work Phone: Serum or plasma albumin kieran urement (mass/volume)on 02-11-2022 Albumin [Mass/Vol] 3.3 g/dL 3.2-5.0 [facility] Work Phone: Serum or plasma albumin/glob ulin mass ratioon 02-11-2022 Albumin/Globulin [Mass ratio] 0.8 {ratio} 0.9-2.4 [facility] Work Phone: Serum or plasma calcium kieran urement (mass/volume)on 02-11-2022 Calcium [Mass/Vol] 8.8 mg/dL 8.5-10.1 [facility] Work Phone: Serum or plasma cholesterol in HDL measurement (mass/volume)on 02-11-2022 Cholesterol in HDL [Mass/Vol] 61 mg/dL >40 [facility] Work Phone: Comment on above: The drugs N-Acetylcy steine and Metamizole may falsely depress this assay. Reference Range HDL <40 mg/dL Low HDL Cholesterol HDL >or= 60 mg/dL High HDL Cholesterol Serum or plasma cholesterol in VLDL measurement (mass/volume)on 02-11-2022 Cholesterol in VLDL [Mass/Vol] 16 mg/dL 5-40 [facility] Work Phone: Serum or plasma creatinine m easurement (mass/volume)on 02-11-2022 Creatinine [Mass/Vol] 0.97 mg/dL 0.55-1.02 [facility] Work Phone: Comment on above: The validity of the calculated GFR & GFRAA in patients over 70 years has not been determined. Clinical correlation is essential. Serum or plasma low density lipoprotein (LDL) cholesterol measurement (mass/volume)on 02-11-2022 Cholesterol in LDL [Mass/Vol] 113 mg/dL 0-130 [facility] Work Phone: Serum or plasma urea nitroge n measurement (mass/volume)on 02-11-2022 Urea nitrogen [Mass/Vol] 12 mg/dL 7-18 [facility] Work Phone: Thin prep Papanicolaou smear with manual screeningon 02-11-2022 Thin prep Papanicolaou smear with manual screening 14 U/L 15-37 [facility] Work Phone: Thin prep Papanicolaou smear with manual screening 8 5-15 [facility] Work Phone: Laboratory - Microbiology an d Antimicrobial susceptibilityon 01-06-2022 SARS-CoV-2 (COVID-19) RNA JOSE LUIS+probe Ql (Unsp spec) Detected [facility] Work Phone: No Panel Informationon 01-06 POC Nasal Swab Influenza A,B Not detected [facility] Work Phone: POC Nasal Swab RSV Not detected [facility] Work Phone: Established Visit (Otolaryng ology)on 01-12-2019 Established Visit (Otolaryngology) Diagnoses/Problems Tinnitus of right ear (388.30) (H93.11) Vestibular migraine (346.00) (G43.109) Vertigo (780.4) (R42) 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 She has been unable to complete MRI or vestibular testing. On further history today she does note some symptoms consistent with vestibular migraines. We discussed with her that on her CT scan she does not have any signs of SCCD, but incidentally noted some sinus disease. She does endorse chronic congestion and sinus complaints since having a root canal last year. - Referral to Neurology for further workup of potential vestibular migraine - Recommend follow up with her ENT in [place] to discuss sinus complaints - No further prescriptions for Valium will be given, but she does have an active prescription for meclizine with refills and will call her pharmacy to have this filled - RTC 6 months Chief Complaint vertigo History of Present Illness 01/10/19: Presents today for follow up of vertigo. She states that her symptoms are essentially the same with vertigo episodes multiple times per week, worsened with nose blowing. She was unable to complete her vestibular testing since she felt it was too difficult to schedule and coordinate locations. She had an MRI scheduled for 12/24 but did not attend the appointment. She does note that she gets headaches associated with these episodes sometimes. Also has associated floaters/flashers and smell sensitivity, but denies nausea or light sensitivity. No other new symptoms. She does have a copy of her CT IAC from February 2018 which we reviewed today and shows normal temporal bone anatomy, no signs of superior semicircular canal dehiscence. 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 OSH MRI negative for retrochochlear lesion. Right ear still feels clogged. Her hearing is quite poor on the right. Still has vertiginous episodes; 5-30 second normally. Symptoms are basically the same. CT scan was done but was not sent back. Patient did not have vestibular testing (patient was a no show in the chart). Initial visit: 47 yo female referred by Dr. Brooks at [place] [facility] for initial evaluation of vertigo. The patient describes her symptoms as vertigo lasting from hours to days triggered by blowing her nose associated with right high frequency tinnitus/ popping, aural fullness, mild right otalgia and right hearing loss. This has been happening for years, last episodes seem to be worse in intensity. She also endorses mild headaches usually following vertiginous episodes along with nausea. Positional changes make episodes worse and improve with fixation. No hx of head trauma, LOC, ear infections, otorrhea, nasal drainage, otologic surgery autophony. Does endorse episodes [...] but no improvement in the high frequencies. Still has vertigo episodes lasting a couple minutes each time. No triggers still. Excessive nose blowing can cause the vertigo. Review of Systems ENT and Constitutional systems have been reviewed and are negative for complaint except what is stated in the HPI and/or Past Medical History. 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 diazePAM 5 MG Oral TabletTAKE 1 TABLET EVERY 8 HOURS NEEDED FOR DIZZINESS IBU 800 MG Oral TabletTAKE 1 TABLET EVERY 8 HOURS NEEDED Levothyroxine Sodium 125 MCG Oral TabletTAKE 1 TABLET BY MOUTH EVERY DAY Lyrica 150 MG Oral CapsuleTAKE 1 CAPSULE TWICE DAILY Meclizine HCl - 25 MG Oral TabletTAKE 1 TABLET EVERY 6 HOURS NEEDED Ondansetron 4 MG Oral Tablet DisintegratingPlace one tablet under the tongue every 8 hrs as needed nausea. Premarin 1.25 MG Oral TabletTAKE 2 TABLETS BY MOUTH EVERY DAY Sudafed 12 Hour 120 MG Oral Tablet Extended Release 12 HourTAKE 1 TABLET EVERY 12 HOURS as needed for nasal congestion Physical Exam Constitutional General appearance: Healthy-appearing, well-nourished, well groomed, in no acute distress. Ability to communicate: Normal communication without aids, normal voice quality. Head and face: Atraumatic with no masses, lesions, or scarring. Facial strength: Normal strength and symmetry, no synkinesis or facial tic. Eyes Pupils and irises: EOM intact, PERRLA, conjunctiva non-injected. Ears Otoscopic examination: bilateral EACs patient, TMs intact and normal appearing, no fluid External inspection of ears: Ears normally formed and free of lesions. Nose: Dorsum symmetric with no visible or [...] no anterior cervical adenopathy, no supraclavicular adenopathy. Neurological/Psychiatri c Cranial Nerve Examination: II - XII grossly intact. Orientation to person, place, and time: Normal. Mood and affect: Normal. Skin: Normal without rashes or lesions. Pulmonary Respiratory effort: Chest expands symmetrically. Cardiovascular: Good peripheral pulses Peripheral vascular system: No varicosities, carotid pulse normal, no edema. No jugular venous distension. Extremities Appearance of extremities: Normal. Gait normal. Results/Data see CT documented above Attending Note Attendee Role: Resident Attendee discussed patient with Dr. Lopez Attestation: I saw and evaluated the patient. I personally obtained the rainey and critical portions of the history and physical exam or was physically present for rainey and critical portions performed by the attendee. I reviewed the attendee's documentation and discussed the patient with the attendee. I agree with the attendee's medical decision making as documented on the attendee's note. Signatures Electronically signed by : Siobhan Lopez MD; Jan 12 2019 11:06AM EST (Author) Normal [facility] Established Visit (Otolaryng ology)on 08-24-2018 Established Visit (Otolaryngology) Diagnoses/Problems Vertigo (780.4) (R42) Orders IO Vestibular Evoked Myogenic Potential; Status:Active - Perform Order,Retrospective By Protocol Authorization; Requested for:24Aug2018; Perform:In Office; Order Comments:PLEASE CALL [phone] TO SCHEDULE THIS PROCEDURE; Due:[id number]; Last Updated By:Hannah Salas; 08/24/2018 12:25:04 PM;Ordered; For:Vertigo; Ordered By:Siobhan Lopez; Provider Impressions 47 yo female presenting for evaluation of vertigo, right aural fullness, tinnitus and SNHL triggered by pressure and high intensity sound. Her symptoms can be related to a perilymphatic fistula vs SCCD. 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 OSH MRI negative for retrochochlear lesion. Right ear still feels clogged. Her hearing is quite poor on the right. Still has vertiginous episodes; 5-30 second normally. Symptoms are basically the same. CT scan was done but was not sent back. Patient did not have vestibular testing (patient was a no show in the chart). RECALL: 47 yo female referred by Dr. Brooks at [place] [facility] for initial evaluation of vertigo. The patient describes her symptoms as vertigo lasting from hours to days triggered by blowing her nose associated with right high frequency tinnitus/ popping, aural fullness, mild right otalgia and right hearing loss. This has been happening for years, last episodes seem to be worse in intensity. She also endorses mild headaches usually following vertiginous episodes along with nausea. Positional changes make episodes worse and improve with fixation. No hx of head trauma, LOC, ear infections, otorrhea, nasal drainage, otologic surgery autophony. Does endorse episodes [...] but no improvement in the high frequencies. Still has vertigo episodes lasting a couple minutes each time. No triggers still. Excessive nose blowing can cause the vertigo. Review of Systems ENT and Constitutional systems [...] Gabbi Lewis; 11/24/2017 8:09:17 AM Current Meds Medication NameInstruction amLODIPine Besylate 5 MG Oral TabletTAKE 1 TABLET BY MOUTH EVERY DAY diazePAM 2 MG Oral TabletTAKE 1 TABLET EVERY 8 HOURS NEEDED diazePAM 5 MG Oral TabletTAKE 1 TABLET NEEDED. diazePAM 5 MG Oral TabletTAKE 1 TABLET EVERY 8 HOURS NEEDED FOR DIZZINESS IBU 800 MG Oral TabletTAKE 1 TABLET EVERY 8 HOURS NEEDED Levothyroxine Sodium 125 MCG Oral TabletTAKE 1 TABLET BY MOUTH EVERY DAY Lyrica 150 MG Oral CapsuleTAKE 1 CAPSULE TWICE DAILY Meclizine HCl - 25 MG Oral TabletTAKE 1 TABLET EVERY 6 HOURS NEEDED Ondansetron 4 MG Oral Tablet DisintegratingPlace one tablet under the tongue every 8 hrs as needed nausea. Premarin 1.25 MG Oral TabletTAKE 2 TABLETS BY MOUTH EVERY DAY Sudafed 12 Hour 120 MG Oral Tablet Extended Release 12 HourTAKE 1 TABLET EVERY 12 HOURS as needed for nasal congestion Physical Exam Constitutional General appearance: Healthy-appearing, well-nourished, [...] no anterior cervical adenopathy, no supraclavicular adenopathy. Neurological/Psychiatri c Cranial Nerve Examination: II - XII grossly intact. Orientation to person, place, and time: Normal. Mood and affect: Normal. Skin: Normal without rashes or lesions. Pulmonary Respiratory effort: Chest expands symmetrically. Cardiovascular: Good peripheral pulses Peripheral vascular system: No varicosities, carotid pulse normal, no edema. No jugular venous distension. Extremities Appearance of extremities: Normal. Gait normal. Attending Note Attestation: I saw and evaluated the patient. I personally obtained the rainey and critical portions of the history and physical exam or was physically present for rainey and critical portions performed by the attendee. I reviewed the attendee's documentation and discussed the patient with the attendee. I agree with the attendee's medical decision making as documented on the attendee's note. 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 Still has vertigo episodes lasting a couple minutes each time. No triggers still. Excessive nose blowing can cause the vertigo. RECALL: 47 yo female referred by Dr. Brooks at [facility] for initial evaluation of vertigo. The patient describes her symptoms as vertigo lasting from hours to days triggered by blowing her nose associated with right high frequency tinnitus/ popping, aural fullness, mild right otalgia and right hearing loss. This has been happening for years, last episodes seem to be worse in intensity. She also endorses mild headaches usually following vertiginous episodes along with nausea. Positional changes make episodes worse and improve with fixation. No hx of head trauma, LOC, ear infections, otorrhea, nasal drainage, otologic surgery autophony. Does endorse episodes [...] Oral Tablet; TAKE 1 TABLET NEEDED; Therapy: [id number] to (Evaluate:[id number]); Last Rx:[id number] Ordered Rx By: Siobhan Lopez; Dispense: 30 Days ; #:30 Tablet; Refill: 0;For: 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; ABIEL = N; Print Rx Formulary Override Reason: Patient has requested non-preferred drug Ondansetron 4 MG Oral Tablet Disintegrating; Place one tablet under the tongue every 8 hrs as needed nausea; Therapy: 01Mar2018 to (Last Rx:[id number]) Requested for: 02Mar2018 Ordered Rx By: Siobhan Lopez; Dispense: 0 Days ; #:20 Tablet Disintegrating; [...] Recorded: 30Mar2018 02:25PM Height5 ft 4 in Jyndjg534 lb 7 oz BMI Klhmgwboto81.58 BSA Calculated2.1 Physical Exam Constitutional General appearance: [...] no anterior cervical adenopathy, no supraclavicular adenopathy. Neurological/Psychiatri c Cranial Nerve Examination: II - XII grossly [...] needed for nasal congestion Rx By: Siobhan Lopez; Dispense: 0 Days ; #:30 Tablet; Refill: 2;For: Tinnitus of right ear, Vertigo; ABIEL = N; Verified Transmission to [facility]; Last Updated By: Peri Luciano; 03/30/2018 3:22:27 PM IO Vestibular Evoked Myogenic Potential; Status:Active - Perform Order,Retrospective Authorization; Requested for:30Mar2018; Perform:In Office; Order Comments:Rule out a perilymphatic fistula or superior semicircular canal dehiscence; Due:[id number]; Last Updated By:Freddie Hebert; 03/30/2018 2:36:58 PM;Ordered; For:Vertigo; Ordered By:Siobhan Lopez; Renew: Meclizine HCl - 25 MG Oral Tablet; TAKE 1 TABLET EVERY 6 HOURS NEEDED Rx By: Siobhan Lopez; Dispense: 0 Days ; #:30 Tablet; Refill: [...] of bony anatomy to be requested from [facility] -Will call w read for CT IAC -Refill of nasal decongestants and meclizine given Attending Note Attestation: I saw and evaluated the patient. I personally obtained the rainey and critical portions of the history and physical exam or was physically present for rainey and critical portions performed by the attendee. I reviewed the attendee's documentation and discussed the patient with the attendee. I agree with the attendee's medical decision making as documented on the attendee's note. Signatures Electronically signed by : Siobhan Lopez MD; Mar 30 2018 4:22PM EST (Author) Normal [employer] Vital Signs Date Time Vital Sign Value Performing Clinician Facility 12-24-2024 11:22-0400 Body mass index (BMI) [Ratio] 46.96 kg/m2 Alvarado Swank TWISTING PRESS OPERATOR.WRAPPER HAND Work Phone: [facility] 12-24-2024 11:22-0400 Body temperature 98.49 [degF] Alvarado Swank TWISTING PRESS OPERATOR.WRAPPER HAND Work Phone: [facility] 12-24-2024 11:22-0400 Body weight 124.1 kg Alvarado Swank TWISTING PRESS OPERATOR.WRAPPER HAND Work Phone: [facility] 12-24-2024 11:22-0400 Diastolic blood pressure 72 mm[Hg] Alvarado Swank TWISTING PRESS OPERATOR.WRAPPER HAND Work Phone: [facility] 12-24-2024 11:22-0400 Heart rate 78 /min Alvarado Swank TWISTING PRESS OPERATOR.WRAPPER HAND Work Phone: [facility] 12-24-2024 11:22-0400 Respiratory rate 16 /min Alvarado Swank TWISTING PRESS OPERATOR.WRAPPER HAND Work Phone: [facility] 12-24-2024 11:22-0400 Systolic blood pressure 118 mm[Hg] Alvarado Swank TWISTING PRESS OPERATOR.WRAPPER HAND Work Phone: [facility] 12-02-2024 17:17-0400 Body temperature 98.1 [degF] Fernando Pendlebury TWISTING PRESS OPERATOR.WRAPPER HAND Work Phone: [facility] 12-02-2024 17:17-0400 Diastolic blood pressure 83 mm[Hg] Fernando Pendlebury TWISTING PRESS OPERATOR.WRAPPER HAND Work Phone: [facility] 12-02-2024 17:17-0400 Heart rate 94 /min Fernando Pendlebury TWISTING PRESS OPERATOR.WRAPPER HAND Work Phone: [facility] 12-02-2024 17:17-0400 Respiratory rate 20 /min Fernando Pendlebury TWISTING PRESS OPERATOR.WRAPPER HAND Work Phone: [facility] 12-02-2024 17:17-0400 SaO2% (BldA) [Mass fraction] 98 % Fernando Pendlebury TWISTING PRESS OPERATOR.WRAPPER HAND Work Phone: [facility] 12-02-2024 17:17-0400 Systolic blood pressure 119 mm[Hg] Fernando Gómez APRN.WRAPPER HAND Work Phone: [facility] 06-17-2024 16:34-0500 Body mass index (BMI) [Ratio] 46.66 kg/m2 Sudha Salgado APRN.WRAPPER HAND Work Phone: [facility] 06-17-2024 16:34-0500 Body temperature 98.01 [degF] Sudha Salgado APRN.WRAPPER HAND Work Phone: [facility] 06-17-2024 16:34-0500 Body weight 123.3 kg Sudha Salgado APRN.WRAPPER HAND Work Phone: [facility] 06-17-2024 16:34-0500 Diastolic blood pressure 86 mm[Hg] Sudha Salgado APRN.WRAPPER HAND Work Phone: [facility] 06-17-2024 16:34-0500 Heart rate 72 /min Sudha Salgado APRN.WRAPPER HAND Work Phone: [facility] 06-17-2024 16:34-0500 Respiratory rate 18 /min Sudha Salgado APRN.WRAPPER HAND Work Phone: [facility] 06-17-2024 16:34-0500 SaO2% (BldA) [Mass fraction] 98 % Sudha Salgado APRN.WRAPPER HAND Work Phone: [facility] 06-17-2024 16:34-0500 Systolic blood pressure 132 mm[Hg] Sudha Salgado APRN.WRAPPER HAND Work Phone: [facility] 05-16-2024 16:38-0500 Body mass index (BMI) [Ratio] 45.37 kg/m2 Stacie Jain APRN.WRAPPER HAND Work Phone: [facility] 05-16-2024 16:38-0500 Body temperature 98.2 [degF] Stacie Jain APRN.WRAPPER HAND Work Phone: [facility] 05-16-2024 16:38-0500 Body weight 119.9 kg Stacie Praisler-Wood TWISTING PRESS OPERATOR.WRAPPER HAND Work Phone: [facility] 05-16-2024 16:38-0500 Diastolic blood pressure 84 mm[Hg] Stacie Praisler-Wood TWISTING PRESS OPERATOR.WRAPPER HAND Work Phone: [facility] 05-16-2024 16:38-0500 Heart rate 71 /min Stacie Praisler-Wood TWISTING PRESS OPERATOR.WRAPPER HAND Work Phone: [facility] 05-16-2024 16:38-0500 Respiratory rate 18 /min Stacie Praisler-Wood TWISTING PRESS OPERATOR.WRAPPER HAND Work Phone: [facility] 05-16-2024 16:38-0500 SaO2% (BldA) [Mass fraction] 98 % Stacie Praisler-Wood TWISTING PRESS OPERATOR.WRAPPER HAND Work Phone: [facility] 05-16-2024 16:38-0500 Systolic blood pressure 138 mm[Hg] Stacie Praisler-Wood TWISTING PRESS OPERATOR.WRAPPER HAND Work Phone: [facility] 02-11-2022 13:31-0400 Body height 162.[address] Erika Reynolds Work Phone: [facility] Work Phone: 02-11-2022 13:31-0400 Body mass index (BMI) [Ratio] 41.7 kg/m2 Dr. Erika Reynolds Work Phone: [facility] Work Phone: 02-11-2022 13:31-0400 Body temperature 97.5 [degF] Dr. Erika Reynolds Work Phone: [facility] Work Phone: 02-11-2022 13:31-0400 Body weight 110.[address] Erika Reynolds Work Phone: [facility] Work Phone: 02-11-2022 13:31-0400 Diastolic blood pressure 82 mm[Hg] Dr. Erika Reynolds Work Phone: [facility] Work Phone: 02-11-2022 13:31-0400 Heart rate 92 /min Dr. Erika Reynolds Work Phone: [facility] Work Phone: 02-11-2022 13:31-0400 Respiratory rate 14 /min Dr. Erika Reynolds Work Phone: [facility] Work Phone: 02-11-2022 13:31-0400 SaO2% (BldA) [Mass fraction] 97 % Dr. Erika Reynolds Work Phone: [facility] Work Phone: 02-11-2022 13:31-0400 Systolic blood pressure 124 mm[Hg] Dr. Erika Reynolds Work Phone: [facility] Work Phone: 01-06-2022 15:43-0400 Body mass index (BMI) [Ratio] 41.8 kg/m2 Dr. Erika Reynolds Work Phone: [facility] Work Phone: 01-06-2022 15:43-0400 Body temperature 98 [degF] Dr. Erika Reynolds Work Phone: [facility] Work Phone: 01-06-2022 15:43-0400 Body weight 110.[address] Erika Reynolds Work Phone: [facility] Work Phone: 01-06-2022 15:43-0400 Diastolic blood pressure 74 mm[Hg] Dr. Erika Reynolds Work Phone: [facility] Work Phone: 01-06-2022 15:43-0400 Heart rate 87 /min Dr. Erika Reynolds Work Phone: [facility] Work Phone: 01-06-2022 15:43-0400 Respiratory rate 14 /min Dr. Erika Reynolds Work Phone: [facility] Work Phone: 01-06-2022 15:43-0400 SaO2% (BldA) [Mass fraction] 97 % Dr. Erika Reynolds Work Phone: [facility] Work Phone: 01-06-2022 15:43-0400 Systolic blood pressure 126 mm[Hg] Dr. Erika Reynolds Work Phone: [facility] Work Phone: 10-30-2021 13:17-0400 Body mass index (BMI) [Ratio] 41.1 kg/m2 Dr. Erika Reynolds Work Phone: [facility] Work Phone: 10-30-2021 13:17-0400 Body weight 108.[address] Erika Reynolds Work Phone: [facility] Work Phone: 09-10-2021 14:12-0400 Body temperature 97.7 [degF] Nicholas Bryant TWISTING PRESS OPERATOR.WRAPPER HAND Work Phone: [facility] 09-10-2021 14:12-0400 Body weight 117.84 kg Nicholas Manny TWISTING PRESS OPERATOR.WRAPPER HAND Work Phone: [facility] 09-10-2021 14:12-0400 Diastolic blood pressure 82 mm[Hg] Nicholas Manny TWISTING PRESS OPERATOR.WRAPPER HAND Work Phone: [facility] 09-10-2021 14:12-0400 Heart rate 73 /min Nicholas Bryant TWISTING PRESS OPERATOR.WRAPPER HAND Work Phone: [facility] 09-10-2021 14:12-0400 Respiratory rate 20 /min Nicholas Bryant TWISTING PRESS OPERATOR.WRAPPER HAND Work Phone: [facility] 09-10-2021 14:120400 SaO2% (BldA) [Mass fraction] 98 % Nicholas Bryant TWISTING PRESS OPERATOR.WRAPPER HAND Work Phone: [facility] 09-10-2021 14:12-0400 Systolic blood pressure 140 mm[Hg] Nicholas Bryant TWISTING PRESS OPERATOR.WRAPPER HAND Work Phone: [facility] Encounters Encounter Date Encounter Type Care Provider Facility Start: 2025 End: 2025 ambulatory [facility] Facility:[facility] Start: 12-26-2024 End: 12-26-2024 Emergency department patient visit [facility] Facility:[facility] Start: 12-25-2024 End: 12-25-2024 Follow-up encounter Alvarado Duran APRN.WRAPPER HAND Work Phone: [facility] Start: 12-25-2024 End: 12-25-2024 Telephone encounter Alvarado Duran APRN.WRAPPER HAND Work Phone: [facility] Start: 12-24-2024 End: 12-24-2024 Patient encounter procedure Alvarado Duran APRN.WRAPPER HAND Work Phone: [facility] Comment on above: Urinary urgency (Lacie kadie Dx) Start: 12-24-2024 End: 12-24-2024 ambulatory [facility] Facility:[facility] Start: 12-23-2024 End: 12-23-2024 ambulatory [facility] Facility:[facility] Start: 12-02-2024 End: 12-02-2024 Office outpatient visit 15 minutes Fernando Gómez TWISTING PRESS OPERATOR.WRAPPER HAND Work Phone: [facility] Comment on above: Viral illness (Prima ry Dx) Start: 12-02-2024 End: 12-02-2024 ambulatory [facility] Facility:[facility] Start: 11-24-2024 ambulatory Alexa Sherwood Facility:[facility] Start: 11-23-2024 End: 11-23-2024 ambulatory Efewongbe Oleghe Facility:[facility] Start: 11-23-2024 End: 11-23-2024 ambulatory Efewongbe Oleghe Facility:[facility] Start: 11-07-2024 End: 11-07-2024 ambulatory Efewongbe Oleghe Facility:[facility] Start: 11-04-2024 End: 11-04-2024 ambulatory Efewongbe Oleghe Facility:[facility] Start: 11-04-2024 End: 11-04-2024 ambulatory Efewongbe Oleroberte Facility:[facility] Start: 10-11-2024 ambulatory Efewongbe Oleroberte Facili ty:[facility] Start: 10-11-2024 End: 10-11-2024 [facility] Start: 09-28-2024 End: 09-28-2024 ambulatory Efaleaongbe Janete Facility:[facility] Start: 08-22-2024 End: 08-22-2024 [facility] Start: 08-18-2024 End: 08-18-2024 ambulatory Efaleaongbe Janete Facility:[facility] Start: 07-22-2024 End: 07-22-2024 ambulatory Efaleaongbe Oleroberte Facility:[facility] Start: 07-22-2024 End: 07-22-2024 [facility] Start: 07-21-2024 End: 07-22-2024 Emergency department patient visit Efaleaongbe Janete Facility:[facility] Start: 07-07-2024 ambulatory Efewongbe Oleroberte Facili ty:[facility] Start: 06-27-2024 End: 06-27-2024 ambulatory Efaleaongbe Oleroberte Facility:[facility] Start: 06-17-2024 End: 06-17-2024 ambulatory EFALEAONGBE B OLEROBERTE Facility:[facility] Start: 06-17-2024 End: 06-17-2024 Patient encounter procedure Sudha Salgado APRN.WRAPPER HAND Work Phone: [facility] Comment on above: Pain, dental (Primar y Dx) Start: 06-16-2024 ambulatory EFEWONGBE B OLEROBERTE Faci lity:[facility] Start: 05-16-2024 End: 05-16-2024 Subsequent [facility] Comment on above: Acute cough [R05.1] Start: 05-16-2024 End: 05-16-2024 ambulatory ERIKA REYNOLDS Facility:[facility] Start: 05-16-2024 End: 05-16-2024 Patient encounter procedure Stacie Jain APRN.CNP Work Phone: [facility] Comment on above: Sore throat (Primary Dx); Acute cough; Wheezing; Pain due to dental caries Start: 04-20-2024 End: 04-20-2024 ambulatory Danyaalbanycesario Riocristian Facility:[facility] Start: 04-06-2024 ambulatory Danyaalbanycesario Reynolds Facili ty:[facility] Start: 04-05-2024 End: 04-05-2024 ambulatory [facility] Facility:[facility] Start: 03-30-2024 End: 03-30-2024 ambulatory Erika Renyolds Facility:[facility] Start: 02-27-2024 End: 02-27-2024 Emergency department patient visit Erika Riorobertavis Facility:[facility] Start: 02-25-2024 End: 02-25-2024 ambulatory Dandy CENTENO Facility:[facility] Start: 02-20-2024 End: 02-20-2024 ambulatory Erika Reynolds Facility:[facility] Start: 01-30-2024 End: 01-30-2024 Emergency department patient visit Erika Riorobertavis Facility:[facility] Start: 02-11-2022 End: 02-11-[address] Erika Reynolds Work Phone: [facility] Work Phone: Start: 02-11-2022 End: 02-11-[address] Erika Reynolds Work Phone: [facility] Start: 01-10-2022 End: 01-10-[address] Erika Reynolds Work Phone: [facility] Start: 01-06-2022 End: 01-06-[address] Erika Reynolds Work Phone: [facility] Start: 01-02-[address] Emily Reynolds Work Phone: [facility]-Physical Therapy Start: 11-19-2021 Non-patient / Non-visit Dr. Zac Reynolds Work Phone: [facility] Start: 10-30-2021 End: 10-30-[address] Erika Reynolds Work Phone: [facility] Start: 09-10-2021 End: 09-10-2021 Patient encounter procedure Nicholas Bryant APRN.CNP Work Phone: [facility] Comment on above: Toothache (Primary D x); Feared condition not demonstrated Start: 07-10-2020 Patient encounter procedure SELF SELF Facility:[facility] Start: 08-24-2018 Patient encounter procedure Siobhan Gordontrue Lopez Facility:[id number] Start: 06-08-2018 Patient encounter procedure Siobhan Rahmanbeth Jessica Facility:[id number] Start: 06-04-2018 Patient encounter procedure Carmine Pisano Facility:[facility] Start: 03-30-2018 Patient encounter procedure Siobhan Rahmanbeth Jessica Facility:[id number] Start: 12-29-2017 Patient encounter procedure Siobhan Rahmanbeth Jessica Facility:[id number] Start: 11-24-2017 Patient encounter procedure Siobhan Rahmanbeth Jessica Facility:[id number] Start: 11-03-2017 Patient encounter procedure Siobhanmichelle RahmanEvelinernesto Lopez Facility:[id number] Start: 12-02-2011 Evaluation and management of inpatient Dr. Erika Reynolds Work Phone: [facility]- Start: 05-31-2008 End: 08-03-2015 Patient encounter status Stacie Jain APRN.WRAPPER HAND Work Phone: [facility] Procedures Date Procedure Procedure Detail Performing Clinician Start: 12-24-2024 Urnls dip stick/tablet rgnt auto w/o microscopy Alvaradodhiraj Duran TWISTING PRESS OPERATOR.WRAPPER HAND Work Phone: Start: 05-16-2024 Radiologic exam chest 2 views Stacie Jain TWISTING PRESS OPERATOR.WRAPPER HAND Work Phone: Start: 05-16-2024 STREP A MOLECULAR (POC) Beverly Foster TWISTING PRESS OPERATOR.WRAPPER HAND Work Phone: Start: 10-12-2019 Adult depression screening assessment Nicholas Bryant TWISTING PRESS OPERATOR.WRAPPER HAND Work Phone: Start: 05-24-2019 Lipid 1996 panel - Serum or Plasma Stacie Jain TWISTING PRESS OPERATOR.WRAPPER HAND Work Phone: Start: 08-24-2018 Follow-up visit H/O: hysterectomy History of hysterectomy Dr. Erika Reynolds Work Phone: H/O: tubal ligation History of t ubal ligation Dr. Erika Reynolds Work Phone: History of appendectomy History of append ectomy Dr. Erika Reynolds Work Phone: Plan of Treatment Date Care Activity Detail Author Start: 01-16-2025 Influenza vaccination Influenza Vacc ine (#1) [facility] Start: 06-29-2024 End: 06-29-2024 Patient encounter procedure 06/29/2024 10:00 AM EST Office Visit OB/Gynecology [address] [place] [id number] Magda Jiang APRN.CN [address] [place] [address] establish and annual OB/Gynecology Comment on above: establish and annual Start: 05-24-2024 Lipid panel Lipid Screening [facility] Start: 05-24-2024 LIPID SCREEN LIPID SCREEN [facility] Start: 01-17-2024 Covid-19 Vaccine ( season) Covid-19 Vaccine ( season) [facility] Start: 01-17-2024 Influenza vaccination Influenza Vacc ine (#1) [facility] Start: 03-14-2023 DIABETES SCREEN DIABETES SCREEN [facility] Start: 03-14-2023 Diabetes Screening Diabetes Screenin g [facility] Start: 02-11-2022 Patient referral [facility] Work Phone: Start: 01-16-2022 Influenza vaccination INFLUENZ A (Season Ended) [facility] Start: 01-03-2022 Shingrix Vaccine (1 of 2) Shingrix Vaccine (1 of 2) [facility] Start: 02-14-2021 ANNUAL PCP TEAM SURFACER ROSALINDA DISEASE VISIT ANNUAL PCP TEAM CHRONIC DISEASE VISIT [facility] Start: 10-11-2020 Adult depression screening assessment DEPRESSION SCREENING [facility] Start: 01-03-2017 COLOGUARD (FIT-DNA) COLOGUARD (FIT-D NA) [facility] Start: 01-03-2017 Colonoscopy COLONOSCOPY [facility] Start: 01-03-2017 COLORECTAL CANCER SCREENING COLORECTAL CANCER SCREENING [facility] Start: 01-03-[address] COLONOGRAPHY [facility] Start: 01-03-2017 FECAL OCCULT BLOOD FECAL OCCULT BLOO D [facility] Start: 01-03-2017 Screening for malign ant neoplasm of colon [facility] Start: 01-03-2017 SIGMOIDOSCOPY SIGMOIDOSCOPY [facility] Start: 11-30-2016 HPV TESTING HPV TESTING [facility] Start: 11-30-2016 PAP TESTING PAP TESTING [facility] Start: 11-30-2014 Screening for malign ant neoplasm of cervix Cervical Cancer Screening [facility] Start: 2012 Mammography MAMMOGRAM [facility] Start: 2012 Screening for malign ant neoplasm of breast Mammogram Screening [facility] Start: 01-03-1991 Hepatitis B Vaccine (1 of 3 - 19+ 3-dose series) Hepatitis B Vaccine (1 of 3 - 19+ 3-dose series) [facility] Start: 01-03-1991 ONE PNEUMOVAX PRIOR TO AGE 65 ONE PNEUMOVAX PRIOR TO AGE 65 [facility] Start: 01-03-1991 Pneumococcal Vaccine : 50+ (1 of 2 - PCV) Pneumococcal Vaccine: 50+ (1 of 2 - PCV) [facility] Start: 01-03-1991 Urine microalbumin profile [facility] Start: 01-03-1990 Anxiety Screening Anxiety Screening [facility] Start: 01-03-1990 BP CONTROLLED (<130/80) BP CONTROLLE D (<130/80) [facility] Start: 01-03-1990 Depression Screening Depression Scre ening [facility] Bacteria identified in Urine by Culture BACTERIAL CULTURE, URINE Microbiology Routine Urinary urgency Ordered: 12/24/2024 [facility] Work Phone: Comment on above: Ordered: 12/24/2024 BACTERIAL VAGINOSIS NAAT BACTERI AL VAGINOSIS NAAT Lab Routine Urinary urgency Ordered: 12/24/2024 [facility] Comment on above: Ordered: 12/24/2024 MARY/TRICHOMONAS NAAT MARY /TRICHOMONAS NAAT Lab Routine Urinary urgency Ordered: 12/24/2024 [facility] Comment on above: Ordered: 12/24/2024 Patient referral [facility] Work Phone: Immunizations Immunization Date Immunization Notes Care Provider [facility] 04-17-[address] Erika Reynolds Work Phone: [facility] Work Phone: 04-17-2020 influenza virus vaccine, unspecified formulation Stacie Jain APRN.WRAPPER HAND Work Phone: [facility] 03-14-2020 influenza, injectabl e, quadrivalent, contains preservative Nicholas Manny TWISTING PRESS OPERATOR.WRAPPER HAND Work Phone: [facility] 04-28-2019 influenza, injectabl e, quadrivalent, contains preservative Nicholas Manny TWISTING PRESS OPERATOR.WRAPPER HAND Work Phone: [facility] 05-28-[address] Erika Reynolds Work Phone: [facility] Work Phone: Payers Date Payer Category Payer Self-pay [id number] 2022 Medicaid [id number] 2016 Medicaid [id number] 2015 Medicaid [facility] MEDICAID [id number] 2015-Present [phone] [address] [place] [address] Medicaid [id number]. [id number] 2014 Unknown [id number] 1972 Unknown [id number] 2.16.840.1.838637.3.579.2.356 1972 Unknown [id number] 2.16.840.1.230462.3.579.2.356 1972 Unknown [id number] 2.16.840.1.163079.3.579.2.356 1972 Unknown [id number] 2.16.840.1.954455.3.579.2.356 1972 Unknown [id number] 2.16.840.1.822686.3.579.2.356 1972 Unknown [id number] 2.16.840.1.937179.3.579.2.356 1972 Unknown [id number] 2.16.840.1.651024.3.579.2.356 1972 Unknown [id number] 2.16.840.1.718842.3.579.2.356 1972 Unknown [id number] 2.16.840.1.620732.3.579.2.356 1972 Unknown [id number] 2.16.840.1.734189.3.579.2.594 Unknown [id number] 2.16.840.1.676806.3.579.2.462 Unknown [id number] 2.16.840.1.760014.3.579.2.462 Unknown [id number] 2.16.840.1.194124.3.579.2.462 Unknown [id number] 2.16.840.1.870760.3.579.2.462 Unknown [id number] 2.16.840.1.849686.3.579.2.462 Unknown [id number] 2.16.840.1.581165.3.579.2.462 Unknown [id number] 2.16.840.1.739604.3.579.2.462 Unknown [id number] 2.16.840.1.533488.3.579.2.462 Unknown [id number] 2.16.840.1.455656.3.579.2.462 Unknown [id number] 2.16.840.1.101254.3.579.2.462 Unknown [id number] 2.16.840.1.152427.3.579.2.462 Unknown [id number] 2.840.1.980773.3.579.2.462 Unknown [id number] 2.16840.1.470259.3.579.2.462 Unknown [id number] 2.16840.1.644261.3.579.2.462 Unknown [id number] 2.16.840.1.255843.3.579.2.462 Unknown [id number] 2.16.840.1.967211.3.579.2.462 Unknown [id number] 2.16.840.1.662381.3.579.2.462 Unknown [id number] 2.16.840.1.561599.3.579.2.462 Unknown [id number] 2.16.840.1.668678.3.579.2.462 Unknown [id number] 2.16.840.1.728061.3.579.2.462 Unknown [id number] 2.16.840.1.327231.3.579.2.462 Unknown [id number] 2.16.840.1.348521.3.579.2.462 Unknown [id number] 2.16.840.1.734632.3.579.2.462 Unknown [id number] 2.16.840.1.805808.3.579.2.462 Unknown [id number] 2.16.840.1.343200.3.579.2.462 Unknown [id number] 2.16840.1.203667.3.579.2.462 Unknown [id number] 2.16840.1.439244.3.579.2.462 Unknown [id number] 2.840.1.045100.3.579.2.462 Social History Date Type Detail Facility Start: 08-10-2012 End: 06-17-2024 Tobacco smoking status TXIS Smokes tobacco daily [facility] History of tobacco use Cigarette Smoker [facility] Start: 09-10-2021 End: 12-24-2024 Alcohol intake Ex-drinker (finding) [facility] Start: 02-01-2019 History SDOH Alcohol Comment occasionally [facility] Start: 1970 Sex Assigned At Not on file [facility] Start: 08-31-2021 End: 09-10-2021 Exposure to SARS-CoV-2 (event) Not sure [facility] Work Phone: Start: 02-11-2022 Tobacco smoking stat us [facility] Unknown if ever smoked [facility] Work Phone: Start: 08-16-2021 [facility] Start: 08-16-2021 [facility] Work Phone: Start: 06-03-2020 Spouse/ Signif icant Other [facility] Work Phone: Start: 08-16-2021 Cigarettes [facility] Work Phone: Start: 1970 Sex Assigned At Female [facility] Work Phone: Start: 08-10-2012 End: 01-14-2024 Cigarettes smoked current (pack per day) - Reported 0.5 [facility] Start: 08-10-2012 End: 06-17-2024 Tobacco use and exposure Smokeless tobacco non-user [facility] Start: 01-14-2024 End: 05-16-2024 Tobacco use panel [facility] Start: 04-18-2012 Adult Depression Screening Assessment 3 [facility] Functional Status Date Assessment Result Facility 06-29-2014 Are you deaf, or do you have serious difficulty hearing No 06/29/2014 3:37 PM Shanta Rose Ma [facility] 06-29-2014 Are you blind, or do you have serious difficulty seeing, even when wearing glasses No 06/29/2014 3:37 PM Shanta Rose Ma [facility] 06-29-2014 Do you have serious difficulty walking or climbing stairs No 06/29/2014 3:37 PM Shanta Rose Ma [facility] 06-29-2014 Do you have difficul ty dressing or bathing No 06/29/2014 3:37 PM Shanta Rose Ma [facility] 06-29-2014 Because of a physica l, mental, or emotional condition, do you have difficulty doing errands alone such as visiting a physician's office or shopping No 06/29/2014 3:37 PM Shanta Rose Ma [facility] Mental Status Date Assessment Result Facility 06-29-2014 Because of a physica l, mental, or emotional condition, do you have serious difficulty concentrating, remembering, or making decisions No 06/29/2014 3:37 PM Shanta Rose Ma [facility] Clinical Notes 05-31-2008 to 12-25-2024 Telephone Encounter - Alvarado Duran APRN.WRAPPER HAND - 12/25/2024 8:16 AM EDTTelephone Encounter - Alvarado Duran APRN.WRAPPER HAND - 12/25/2024 8:16 AM Alvarado Taylor APRN.CNP - 12/24/2024 11:49 AM EDT Note Date & Type Note Facility 12-25-2024 Telephone encounter Note Vaginitis swab positive for yeast. [facility] 12-25-2024 Miscellaneous Notes Vaginitis swab positive for yeast. Diflucan sent to [facility]. documented in this encounter [facility] 12-24-2024 Note HNO ID: [id number] Author: ALVARADO DURAN APRN.CNP Service: ? Author Type: Nurse Practitioner Type: Progress Notes Filed: 12/24/2024 12:18 Note Text: URGENT CARE [facility] Gabriella German is a 54 year old female. Patient presents with: UTI pinworms UTI Associated symptoms include urgency. Pertinent negatives include no frequency and no hematuria. Parasitic Infection Concerns: - Reports seeing itty bitty white things coming out of her skin last night. - Describes appearance of eggs under her skin, resembling writing. - Denies seeing a feeder tender. Urinary Urgency: - Reports urinary urgency and decreased urine output. - Denies dysuria. - She is sure she has an infection and needs medication. Review of Systems Constitutional: Negative for fatigue and fever. Genitourinary: Positive for urgency. Negative for decreased urine volume, dysuria, frequency, genital sores, hematuria, vaginal bleeding, vaginal discharge and vaginal pain. Objective BP 118/72 Pulse 78 Temp 36.9 ?C (98.5 ?F) (Tympanic) Resp 16 Wt 124.1 kg (273 lb 9.5 oz) LMP 02/19/2010 BMI 46.96 kg/m? PAST MEDICAL HISTORY[1] PAST SURGICAL HISTORY Procedure Laterality Date APPENDECTOMY 03/2012 same time as hysterectomy CARPAL TUNNEL 2013 left ENTERORRHAPHY MULTIPLE PERFORATIONS 03/24/12 x 2; during BSO EXTRACTION, ERUPTED TOOTH OR EXPOSED ROOT (ELEVATION AND/OR FORCEPS REMOVAL) 2015 infected tooth extracted INDUCED - EVACUATION x 2 NEUROPLASTY AND/TRANSPOS MEDIAN NRV CARPAL TUNNE 08/20/2012 Carpal tunnel decomp - right S TUBAL LIGATION 1993 SALPINGO-OOPHORECTOMY COMPL/PRTL UNI/BI SPX 2011 Thsrkgbp-plargdehzyvd-nwet separate from hysterectomy TOTAL ABDOMINAL HYSTERECT W/WO RMVL TUBE OVARY 2011 JANNA for fibroids ALLERGIES Lisinopril and Codeine MEDICATIONS methylPREDNISolone (MEDROL DOSE-PACK) 4 mg Dose-Pack Take by mouth as directed. Per package instructions levothyroxine (SYNTHROID) 125 mcg tablet Take 125 mcg by mouth once daily. cyclobenzaprine (FLEXERIL) 10 mg tablet Take 10 mg by mouth three times a day as needed. PREMARIN 0.9 mg tablet pregabalin (LYRICA) 100 mg capsule Take 1 capsule by mouth every 12 hours. DULoxetine (CYMBALTA) 60 mg capsule Take 1 capsule by mouth every 12 hours. amLODIPine (NORVASC) 10 mg tablet Take 1 tablet by mouth once daily. Hydrochlorothiazide 12.5 mg capsule Take 1 capsule by mouth once daily. pregabalin (LYRICA) 75 mg capsule Take 1 capsule by mouth every 12 hours. (Patient not taking: Reported on 12/24/2024) albuterol HFA (PROVENTIL HFA, VENTOLIN HFA) 90 mcg/actuation inhaler Inhale 2 Puffs as instructed every 4 hours as needed for wheezing/shortness of breath. (Patient not taking: Reported on 12/24/2024) POTASSIUM-99 ORAL Take by mouth. (Patient not taking: Reported on 12/24/2024) Vitamin P02-Kxuzr Acid 0.5-1 mg tab Take by mouth. (Patient not taking: Reported on 12/24/2024) levothyroxine (LEVOXYL) 150 mcg tablet Take 1 tablet by mouth once daily. Take on empty stomach. For thyroid. (Patient not taking: Reported on 12/24/2024) estrogens conjugated (PREMARIN) 1.25 mg tablet Take 1 tablet by mouth once daily. (Patient not taking: Reported on 12/24/2024) Blood Pressure Monitor (BLOOD PRESSURE KIT) Dx: HTN, labile blood pressures (Patient not taking: Reported on 12/24/2024) amitriptyline (ELAVIL) 10 mg tablet Take 1 tablet by mouth daily at bedtime. (Patient not taking: Reported on 12/24/2024) FAMILY HISTORY[2] SOCIAL HISTORY[3] Physical Exam Constitutional: General: She is not in acute distress. Appearance: Normal appearance. She is normal weight. She is not toxic-appearing. HENT: Head: Normocephalic and atraumatic. Eyes: Pupils: Pupils are equal, round, and reactive to light. Cardiovascular: Rate and Rhythm: Normal rate and regular rhythm. Pulses: Normal pulses. Heart sounds: Normal heart sounds. Pulmonary: Effort: Pulmonary effort is normal. Breath sounds: Normal breath sounds. Abdominal: General: There is no distension. Palpations: There is no mass. Tenderness: There is no abdominal tenderness. There is no right CVA tenderness, left CVA tenderness, guarding or rebound. Hernia: No hernia is present. Skin: Findings: No abrasion, erythema, laceration, lesion or rash. Rash is not crusting, macular, nodular, papular, purpuric, pustular or urticarial. Comments: Skin: Normal hair follicles observed, no parasites or abnormal lesions noted. Neurological: Mental Status: She is alert. General: No acute distress. Skin: Normal hair follicles observed, no parasites or abnormal lesions noted. Breast: Skin under breast appears normal, no abnormal lesions noted. { 1. Urinary urgency (R39.15) - Urinalysis normal; no leukocytes, nitrites, or blood detected. - Urine sent for culture. - Patient persistant she has infection, self swab performed will wait for results. - No antibiotics leodan (more content not included)... [facility] 12-24-2024 History of Present illness Narrative Images from the original note were not included. URGENT CARE [facility] Baljit German is a 54 year old female. Patient presents with: UTI pinworms UTI Associated symptoms include urgency. Pertinent negatives include no frequency and no hematuria. Parasitic Infection Concerns: - Reports seeing itty bitty white things coming out of her skin last night. - Describes appearance of eggs under her skin, resembling writing. - Denies seeing a feeder tender. Urinary Urgency: - Reports urinary urgency and decreased urine output. - Denies dysuria. - She is sure she has an infection and needs medication. Review of Systems Constitutional: Negative for fatigue and fever. Genitourinary: Positive for urgency. Negative for decreased urine volume, dysuria, frequency, genital sores, hematuria, vaginal bleeding, vaginal discharge and vaginal pain. Objective BP 118/72 Pulse 78 Temp 36.9 C (98.5 F) (Tympanic) Resp 16 Wt 124.1 kg (273 lb 9.5 oz) LMP 02/19/2010 BMI 46.96 kg/m PAST MEDICAL HISTORY[1] PAST SURGICAL HISTORY Procedure Laterality Date APPENDECTOMY 03/2012 same time as hysterectomy CARPAL TUNNEL 2013 left ENTERORRHAPHY MULTIPLE PERFORATIONS 03/24/12 x 2; during BSO EXTRACTION, ERUPTED TOOTH OR EXPOSED ROOT (ELEVATION AND/OR FORCEPS REMOVAL) 2016 infected tooth extracted INDUCED - EVACUATION x 2 NEUROPLASTY &/TRANSPOS MEDIAN NRV CARPAL TUNNE 08/20/2012 Carpal tunnel decomp - right S TUBAL LIGATION 1993 SALPINGO-OOPHORECTOMY COMPL/PRTL UNI/BI SPX 2011 Xazftifx-zatqaghofwnb-dzkp separate from hysterectomy TOTAL ABDOMINAL HYSTERECT W/WO RMVL TUBE OVARY 2011 JANNA for fibroids ALLERGIES Lisinopril and Codeine MEDICATIONS methylPREDNISolone (MEDROL DOSE-PACK) 4 mg Dose-Pack Take by mouth as directed. Per package instructions levothyroxine (SYNTHROID) 125 mcg tablet Take 125 mcg by mouth once daily. cyclobenzaprine (FLEXERIL) 10 mg tablet Take 10 mg by mouth three times a day as needed. PREMARIN 0.9 mg tablet pregabalin (LYRICA) 100 mg capsule Take 1 capsule by mouth every 12 hours. DULoxetine (CYMBALTA) 60 mg capsule Take 1 capsule by mouth every 12 hours. amLODIPine (NORVASC) 10 mg tablet Take 1 tablet by mouth once daily. Hydrochlorothiazide 12.5 mg capsule Take 1 capsule by mouth once daily. pregabalin (LYRICA) 75 mg capsule Take 1 capsule by mouth every 12 hours. (Patient not taking: Reported on 12/24/2024) albuterol HFA (PROVENTIL HFA, VENTOLIN HFA) 90 mcg/actuation inhaler Inhale 2 Puffs as instructed every 4 hours as needed for wheezing/shortness of breath. (Patient not taking: Reported on 12/24/2024) POTASSIUM-99 ORAL Take by mouth. (Patient not taking: Reported on 12/24/2024) Vitamin A65-Cpgzu Acid 0.5-1 mg tab Take by mouth. (Patient not taking: Reported on 12/24/2024) levothyroxine (LEVOXYL) 150 mcg tablet Take 1 tablet by mouth once daily. Take on empty stomach. For thyroid. (Patient not taking: Reported on 12/24/2024) estrogens conjugated (PREMARIN) 1.25 mg tablet Take 1 tablet by mouth once daily. (Patient not taking: Reported on 12/24/2024) Blood Pressure Monitor (BLOOD PRESSURE KIT) Dx: HTN, labile blood pressures (Patient not taking: Reported on 12/24/2024) amitriptyline (ELAVIL) 10 mg tablet Take 1 tablet by mouth daily at bedtime. (Patient not taking: Reported on 12/24/2024) FAMILY HISTORY[2] SOCIAL HISTORY[3] Physical Exam Constitutional: General: She is not in acute distress. Appearance: Normal appearance. She is normal weight. She is not toxic-appearing. HENT: Head: Normocephalic and atraumatic. Eyes: Pupils: Pupils are equal, round, and reactive to light. Cardiovascular: Rate and Rhythm: Normal rate and regular rhythm. Pulses: Normal pulses. Heart sounds: Normal heart sounds. Pulmonary: Effort: Pulmonary effort is normal. Breath sounds: Normal breath sounds. Abdominal: General: There is no distension. Palpations: There is no mass. Tenderness: There is no abdominal tenderness. There is no right CVA tenderness, left CVA tenderness, guarding or rebound. Hernia: No hernia is present. Skin: Findings: No abrasion, erythema, laceration, lesion or rash. Rash is not crusting, macular, nodular, papular, purpuric, pustular or urticarial. Comments: Skin: Normal hair follicles observed, no parasites or abnormal lesions noted. Neurological: Mental Status: She is alert. General: No acute distress. Skin: Normal hair follicles observed, no parasites or abnormal lesions noted. Breast: Skin under breast appears normal, no abnormal lesions noted. { 1. Urinary urgency (R39.15) - Urinalysis normal; no leukocytes, nitrites, or blood detected. - Urine sent for culture. - Patient persistant she has infection, self swab performed will wait for results. - No antibiotics indicated at this time. -No concerns of bugs coming out of her arms, normal hair folicules seen. and Recording using ambient [employer] software for draft documentation of the visit was discussed with the patient/authorized junior sales representative; all questions welcomed and answered. Patient/authorized junior sales representative agreed to proceed Disposition The patient was discharged. Patient well-appearing nontoxic in no acute distress 54-year-old female presents with concern of little bitty white things coming out of her arm. Normal hair follicles observed. Patient also states she has urgency denies any dysuria or frequency. Her urine dip is normal within clinic will send for culture and call if antibiotics are needed. Vaginal self swabbing, as patient is sure she has an infection no concrete symptoms. No concern of pyelonephritis, acute abdomen, PID or sepsis. Follow-up with primary care provider ER if worsening patient would like understanding agreement this plan. [1] Past Medical History: No date: ADHD (attention deficit hyperactivity disorder) No date: Anxiety 10/2013: Cocaine abuse (HCC) No date: Current smoker No date: GERD (gastroesophageal reflux disease) 05/31/2008: GOITER NOS Comment: Previously with hyperthyroidism but presented with hypothyrodism in 05-26: US ordered US 05-26: 6.8 mm nodule in the mid R lobe with a heterogenously enlarged thyroid 03/2012: Hormone replacement therapy (HRT) 10/2012: Hypercholesterolemia No date: Hypertension 05/31/2008: HYPOTHYROIDISM NOS Comment: TSH 0.07 (0.5-6) in 05-26: likely suppressed from thyrotoxicosis in the past (consider TRH testing) T3 86 (94-170) in 05-26 T4 4.2 (4.9-11) in 05-26 TU and FTI in therapeutic range as of 05-26 MRI 05-26 with NL findings and no pituitary issues 07/23/2012: Incisional pain 03/25/2013: Left carpal tunnel syndrome 12/2012, 10/2013: Marijuana abuse 05/31/2008: Morbid obesity (HCC) 12/28/2009: Pain in joint, lower leg 05/31/2008: Pain in thoracic spine 03/26/2012: Puncture wound of small intestine, open 08/20/2012: Right carpal tunnel syndrome 06/29/2014: Right upper quadrant abdominal pain 06/10/2020: Withdrawal from methamphetamine ([facility]) Comment: & other substances. Rehab at 180 [2] Review of patient's family history indicates: Problem: Hypertension Relation: Father Age of Onset: (Not Specified) Problem: other (Pancreatic cancer [Other]) Relation: Father Age of Onset: (Not Specified) Problem: Diabetes Relation: Father Age of Onset: (Not Specified) [3] Social History Tobacco Use Smoking status: Every Day Current packs/day: 0.50 Average packs/day: 0.5 packs/day for 15.0 years (7.5 ttl pk-yrs) Types: Cigarettes Smokeless tobacco: Never Vaping Use Vaping status: Never Used Substance Use Topics Alcohol use: Not Currently Comment: occasionally Drug use: Not Currently Comment: marijuana 1-2x's/week; cocaine-pt states rarely uses documented in this encounter [facility] 12-02-2024 Note HNO ID: [id number] Author: FERNANDO GÓMEZ APRN.WRAPPER HAND Service: ? Author Type: Nurse Practitioner Type: Progress Notes Filed: 12/02/2024 17:30 Note Text: Subjective HPI Nontoxic. 54-year-old female presents urgent care chief plaint sore throat right ear pain. Duration of symptoms 4 days. Associated symptoms sore throat right ear pain headache fatigue. New shortness of breath and chest discomfort today. Patient states walker was because she gets extremely winded. OTC medications have not helped. Denies any fevers. Past medical history prescription medications allergies reviewed. .Patient presents with: Sore Throat: R ear pain/ jaw pain x4 days, Shortness of Breath, fatigue PAST MEDICAL HISTORY Diagnosis Date ADHD (attention deficit hyperactivity disorder) Anxiety Cocaine abuse (HCC) 10/2013 Current smoker GERD (gastroesophageal reflux disease) GOITER NOS 05/31/2008 Previously with hyperthyroidism but presented with hypothyrodism in 05-26: US ordered US 05-26: 6.8 mm nodule in the mid R lobe with a heterogenously enlarged thyroid Hormone replacement therapy (HRT) 03/2012 Hypercholesterolemia 10/2012 Hypertension HYPOTHYROIDISM NOS 05/31/2008 TSH 0.07 (0.5-6) in 05-26: likely suppressed from thyrotoxicosis in the past (consider TRH testing) T3 86 (94-170) in 05-26 T4 4.2 (4.9-11) in 05-26 TU and FTI in therapeutic range as of 05-26 MRI 05-26 with NL findings and no pituitary issues Incisional pain 07/23/2012 Left carpal tunnel syndrome 03/25/2013 Marijuana abuse 12/2012, 10/2013 Morbid obesity (HCC) 05/31/2008 Pain in joint, lower leg 12/28/2009 Pain in thoracic spine 05/31/2008 Puncture wound of small intestine, open 03/26/2012 Right carpal tunnel syndrome 08/20/2012 Right upper quadrant abdominal pain 06/29/2014 Withdrawal from methamphetamine (HCC) 06/10/2020 AND other substances. Rehab at 180 PAST SURGICAL HISTORY Procedure Laterality Date APPENDECTOMY 03/2012 same time as hysterectomy CARPAL TUNNEL 2013 left ENTERORRHAPHY MULTIPLE PERFORATIONS 03/24/12 x 2; during BSO EXTRACTION, ERUPTED TOOTH OR EXPOSED ROOT (ELEVATION AND/OR FORCEPS REMOVAL) 2016 infected tooth extracted INDUCED - EVACUATION x 2 NEUROPLASTY AND/TRANSPOS MEDIAN NRV CARPAL TUNNE 08/20/2012 Carpal tunnel decomp - right S TUBAL LIGATION 1993 SALPINGO-OOPHORECTOMY COMPL/PRTL UNI/BI SPX 2011 Rwejyhmo-uzbwpyesplny-wccg separate from hysterectomy TOTAL ABDOMINAL HYSTERECT W/WO RMVL TUBE OVARY 2011 JANNA for fibroids ALLERGIES Lisinopril and Codeine MEDICATIONS methylPREDNISolone (MEDROL DOSE-PACK) 4 mg Dose-Pack Take by mouth as directed. Per package instructions levothyroxine (SYNTHROID) 125 mcg tablet Take 125 mcg by mouth once daily. cyclobenzaprine (FLEXERIL) 10 mg tablet Take 10 mg by mouth three times a day as needed. PREMARIN 0.9 mg tablet pregabalin (LYRICA) 100 mg capsule Take 1 capsule by mouth every 12 hours. DULoxetine (CYMBALTA) 60 mg capsule Take 1 capsule by mouth every 12 hours. pregabalin (LYRICA) 75 mg capsule Take 1 capsule by mouth every 12 hours. Vitamin O85-Kfzka Acid 0.5-1 mg tab Take by mouth. amLODIPine (NORVASC) 10 mg tablet Take 1 tablet by mouth once daily. Hydrochlorothiazide 12.5 mg capsule Take 1 capsule by mouth once daily. albuterol HFA (PROVENTIL HFA, VENTOLIN HFA) 90 mcg/actuation inhaler Inhale 2 Puffs as instructed every 4 hours as needed for wheezing/shortness of breath. (Patient not taking: Reported on 06/17/2024) POTASSIUM-99 ORAL Take by mouth. (Patient not taking: Reported on 05/16/2024) levothyroxine (LEVOXYL) 150 mcg tablet Take 1 tablet by mouth once daily. Take on empty stomach. For thyroid. (Patient not taking: Reported on 12/02/2024) estrogens conjugated (PREMARIN) 1.25 mg tablet Take 1 tablet by mouth once daily. (Patient not taking: Reported on 12/02/2024) Blood Pressure Monitor (BLOOD PRESSURE KIT) Dx: HTN, labile blood pressures (Patient not taking: Reported on 09/10/2021 ) amitriptyline (ELAVIL) 10 mg tablet Take 1 tablet by mouth daily at bedtime. (Patient not taking: Reported on 09/10/2021 ) FAMILY HISTORY Problem Relation Age of Onset Hypertension Father other (Pancreatic cancer [Other]) Father Diabetes Father Social History Tobacco Use Smoking status: Every Day Current packs/day: 0.50 Average packs/day: 0.5 packs/day for 15.0 years (7.5 ttl pk-yrs) Types: Cigarettes Smokeless tobacco: Never Vaping Use Vaping status: Never Used Substance Use Topics Alcohol use: Not Currently Comment: occasionally Drug use: Not Currently Comment: marijuana 1-2x's/week; cocaine-pt states rarely uses BP 119/83 Pulse 94 Temp 36.7 ?C (98.1 ?F) Resp 20 LMP 02/19/2010 SpO2 98% Review of Systems Constitutional: Positive for malaise/fatigue. Negative for chills and fever. HENT: Positive for sore throat. Negative for congestion, ear discharge, ear pain and sinus pain. Eyes: N (more content not included)... [facility] 12-02-2024 History of Present illness Narrative Subjective HPI Nontoxic. 54-year-old female presents urgent care chief plaint sore throat right ear pain. Duration of symptoms 4 days. Associated symptoms sore throat right ear pain headache fatigue. New shortness of breath and chest discomfort today. Patient states walker was because she gets extremely winded. OTC medications have not helped. Denies any fevers. Past medical history prescription medications allergies reviewed. .Patient presents with: Sore Throat: R ear pain/ jaw pain x4 days, Shortness of Breath, fatigue PAST MEDICAL HISTORY Diagnosis Date ADHD (attention deficit hyperactivity disorder) Anxiety Cocaine abuse (HCC) 10/2013 Current smoker GERD (gastroesophageal reflux disease) GOITER NOS 05/31/2008 Previously with hyperthyroidism but presented with hypothyrodism in 05-26: US ordered US 05-26: 6.8 mm nodule in the mid R lobe with a heterogenously enlarged thyroid Hormone replacement therapy (HRT) 03/2012 Hypercholesterolemia 10/2012 Hypertension HYPOTHYROIDISM NOS 05/31/2008 TSH 0.07 (0.5-6) in 05-26: likely suppressed from thyrotoxicosis in the past (consider TRH testing) T3 86 (94-170) in 05-26 T4 4.2 (4.9-11) in 05-26 TU and FTI in therapeutic range as of 05-26 MRI 05-26 with NL findings and no pituitary issues Incisional pain 07/23/2012 Left carpal tunnel syndrome 03/25/2013 Marijuana abuse 12/2012, 10/2013 Morbid obesity (HCC) 05/31/2008 Pain in joint, lower leg 12/28/2009 Pain in thoracic spine 05/31/2008 Puncture wound of small intestine, open 03/26/2012 Right carpal tunnel syndrome 08/20/2012 Right upper quadrant abdominal pain 06/29/2014 Withdrawal from methamphetamine (HCC) 06/10/2020 & other substances. Rehab at [facility] PAST SURGICAL HISTORY Procedure Laterality Date APPENDECTOMY 03/2012 same time as hysterectomy CARPAL TUNNEL 2013 left ENTERORRHAPHY MULTIPLE PERFORATIONS 03/24/12 x 2; during BSO EXTRACTION, ERUPTED TOOTH OR EXPOSED ROOT (ELEVATION AND/OR FORCEPS REMOVAL) 2016 infected tooth extracted INDUCED - EVACUATION x 2 NEUROPLASTY &/TRANSPOS MEDIAN NRV CARPAL TUNNE 08/20/2012 Carpal tunnel decomp - right S TUBAL LIGATION 1993 SALPINGO-OOPHORECTOMY COMPL/PRTL UNI/BI SPX 2012 Hyafkhll-jnfzxaicszez-jsuw separate from hysterectomy TOTAL ABDOMINAL HYSTERECT W/WO RMVL TUBE OVARY 2011 JANNA for fibroids ALLERGIES Lisinopril and Codeine MEDICATIONS methylPREDNISolone (MEDROL DOSE-PACK) 4 mg Dose-Pack Take by mouth as directed. Per package instructions levothyroxine (SYNTHROID) 125 mcg tablet Take 125 mcg by mouth once daily. cyclobenzaprine (FLEXERIL) 10 mg tablet Take 10 mg by mouth three times a day as needed. PREMARIN 0.9 mg tablet pregabalin (LYRICA) 100 mg capsule Take 1 capsule by mouth every 12 hours. DULoxetine (CYMBALTA) 60 mg capsule Take 1 capsule by mouth every 12 hours. pregabalin (LYRICA) 75 mg capsule Take 1 capsule by mouth every 12 hours. Vitamin T49-Hkydz Acid 0.5-1 mg tab Take by mouth. amLODIPine (NORVASC) 10 mg tablet Take 1 tablet by mouth once daily. Hydrochlorothiazide 12.5 mg capsule Take 1 capsule by mouth once daily. albuterol HFA (PROVENTIL HFA, VENTOLIN HFA) 90 mcg/actuation inhaler Inhale 2 Puffs as instructed every 4 hours as needed for wheezing/shortness of breath. (Patient not taking: Reported on 06/17/2024) POTASSIUM-99 ORAL Take by mouth. (Patient not taking: Reported on 05/16/2024) levothyroxine (LEVOXYL) 150 mcg tablet Take 1 tablet by mouth once daily. Take on empty stomach. For thyroid. (Patient not taking: Reported on 12/02/2024) estrogens conjugated (PREMARIN) 1.25 mg tablet Take 1 tablet by mouth once daily. (Patient not taking: Reported on 12/02/2024) Blood Pressure Monitor (BLOOD PRESSURE KIT) Dx: HTN, labile blood pressures (Patient not taking: Reported on 09/10/2021 ) amitriptyline (ELAVIL) 10 mg tablet Take 1 tablet by mouth daily at bedtime. (Patient not taking: Reported on 09/10/2021 ) FAMILY HISTORY Problem Relation Age of Onset Hypertension Father other (Pancreatic cancer [Other]) Father Diabetes Father Social History Tobacco Use Smoking status: Every Day Current packs/day: 0.50 Average packs/day: 0.5 packs/day for 15.0 years (7.5 ttl pk-yrs) Types: Cigarettes Smokeless tobacco: Never Vaping Use Vaping status: Never Used Substance Use Topics Alcohol use: Not Currently Comment: occasionally Drug use: Not Currently Comment: marijuana 1-2x's/week; cocaine-pt states rarely uses BP 119/83 Pulse 94 Temp 36.7 C (98.1 F) Resp 20 LMP 02/19/2010 SpO2 98% Review of Systems Constitutional: Positive for malaise/fatigue. Negative for chills and fever. HENT: Positive for sore throat. Negative for congestion, ear discharge, ear pain and sinus pain. Eyes: Negative for blurred vision, pain, discharge and redness. Respiratory: Positive for shortness of breath. Negative for cough, hemoptysis, sputum production, wheezing and stridor. Cardiovascular: Positive for chest pain. Gastrointestinal: Negative for abdominal pain, diarrhea, nausea and vomiting. Musculoskeletal: Positive for myalgias. Skin: Negative for itching and rash. Neurological: Positive for headaches. Negative for dizziness. Objective Physical Exam Constitutional: General: She is not in acute distress. Appearance: She is not diaphoretic. HENT: Head: Normocephalic. Jaw: No trismus, tenderness, swelling or pain on movement. Nose: Congestion present. Mouth/Throat: Mouth: Mucous membranes are moist. Pharynx: Oropharynx is clear. Uvula midline. No pharyngeal swelling, oropharyngeal exudate, posterior oropharyngeal erythema or uvula swelling. Eyes: Conjunctiva/sclera: Conjunctivae normal. Pupils: Pupils are equal, round, and reactive to light. Cardiovascular: Rate and Rhythm: Normal rate and regular rhythm. Heart sounds: Normal heart sounds. Pulmonary: Effort: Pulmonary effort is normal. No tachypnea, accessory muscle usage or respiratory distress. Breath sounds: Normal breath sounds. No stridor. No wheezing, rhonchi or rales. Abdominal: General: There is no distension. Palpations: Abdomen is soft. Tenderness: There is no abdominal tenderness. There is no guarding or rebound. Musculoskeletal: Cervical back: Normal range of motion and neck supple. No edema, erythema, rigidity or tenderness. No pain with movement. Normal range of motion. Lymphadenopathy: Cervical: No cervical adenopathy. Skin: General: Skin is warm and dry. Neurological: Mental Status: She is alert and oriented to person, place, and time. ASSESSMENT/PLAN: 1. Viral illness - ICD9: 079.99, ICD10: B34.9 Patient nontoxic appearing. Suspicious of viral illness however with patient's worsening chest pain and shortness of breath. Patient states when she goes up the stairs she gets extremely winded. I did discuss with patient I cannot rule out cardiac or pulmonary causes of shortness of breath referred to ED. Verbalized understand agrees plan of care Fernando Gómez APRN.[employer] documented in this encounter [facility] 06-17-2024 Note HNO ID: [id number] Author: SUDHA SALGADO APRN.[facility] Service: ? Author Type: Nurse Practitioner Type: Progress Notes Filed: 06/17/2024 16:47 Note Text: Subjective Female with complaints of right sided jaw and ear pain. Patient says she does have bad teeth. Patient says she has had tooth infections before. Patient is not sure if it is a tooth infection or an ear infection. Patient denies any fever chills nausea vomiting. Patient denies any difficulty breathing. Patient denies any other symptoms. The history is provided by the patient. No american sign language interpreter was used. Dental Problem Review of Systems Constitutional: Negative. Skin: Negative. Objective Physical Exam Constitutional: Appearance: Normal appearance. HENT: Right Ear: Hearing, tympanic membrane, ear canal and external ear normal. Left Ear: Hearing, tympanic membrane, ear canal and external ear normal. Mouth/Throat: Mouth: Mucous membranes are moist. Tongue: No lesions. Tongue does not deviate from midline. Palate: No mass and lesions. Pharynx: Oropharynx is clear. Uvula midline. Comments: Significant dental caries noted. Is tender in the area marked blue above. No signs of abscesses at this time. No trismus noted. Cardiovascular: Rate and Rhythm: Normal rate and regular rhythm. Heart sounds: Normal heart sounds. Pulmonary: Effort: Pulmonary effort is normal. Breath sounds: Normal breath sounds. Neurological: Mental Status: She is alert. PAST MEDICAL HISTORY Diagnosis Date ADHD (attention deficit hyperactivity disorder) Anxiety Cocaine abuse (HCC) 10/2013 Current smoker GERD (gastroesophageal reflux disease) GOITER NOS 05/31/2008 Previously with hyperthyroidism but presented with hypothyrodism in 05-26: US ordered US 05-26: 6.8 mm nodule in the mid R lobe with a heterogenously enlarged thyroid Hormone replacement therapy (HRT) 03/2012 Hypercholesterolemia 10/2012 Hypertension HYPOTHYROIDISM NOS 05/31/2008 TSH 0.07 (0.5-6) in 05-26: likely suppressed from thyrotoxicosis in the past (consider TRH testing) T3 86 (94-170) in 05-26 T4 4.2 (4.9-11) in 05-26 TU and FTI in therapeutic range as of 05-26 MRI 05-26 with NL findings and no pituitary issues Incisional pain 07/23/2012 Left carpal tunnel syndrome 03/25/2013 Marijuana abuse 12/2012, 10/2013 Morbid obesity (HCC) 05/31/2008 Pain in joint, lower leg 12/28/2009 Pain in thoracic spine 05/31/2008 Puncture wound of small intestine, open 03/26/2012 Right carpal tunnel syndrome 08/20/2012 Right upper quadrant abdominal pain 06/29/2014 Withdrawal from methamphetamine (HCC) 06/10/2020 AND other substances. Rehab at [facility] PAST SURGICAL HISTORY Procedure Laterality Date APPENDECTOMY 03/2012 same time as hysterectomy CARPAL TUNNEL 2013 left ENTERORRHAPHY MULTIPLE PERFORATIONS 03/24/12 x 2; during BSO EXTRACTION, ERUPTED TOOTH OR EXPOSED ROOT (ELEVATION AND/OR FORCEPS REMOVAL) 2016 infected tooth extracted INDUCED - EVACUATION x 2 NEUROPLASTY AND/TRANSPOS MEDIAN NRV CARPAL TUNNE 08/20/2012 Carpal tunnel decomp - right S TUBAL LIGATION 1993 SALPINGO-OOPHORECTOMY COMPL/PRTL UNI/BI SPX 2011 Slribvgb-ibnnqzdcklzm-piog separate from hysterectomy TOTAL ABDOMINAL HYSTERECT W/WO RMVL TUBE OVARY 2011 JANNA for fibroids ALLERGIES Lisinopril and Codeine MEDICATIONS DULoxetine (CYMBALTA) 60 mg capsule Take 1 capsule by mouth every 12 hours. pregabalin (LYRICA) 75 mg capsule Take 1 capsule by mouth every 12 hours. levothyroxine (LEVOXYL) 150 mcg tablet Take 1 tablet by mouth once daily. Take on empty stomach. For thyroid. amLODIPine (NORVASC) 10 mg tablet Take 1 tablet by mouth once daily. estrogens conjugated (PREMARIN) 1.25 mg tablet Take 1 tablet by mouth once daily. Hydrochlorothiazide 12.5 mg capsule Take 1 capsule by mouth once daily. amoxicillin (AMOXIL) 875 mg tablet Take 1 tablet by mouth two times a day for 5 days. albuterol HFA (PROVENTIL HFA, VENTOLIN HFA) 90 mcg/actuation inhaler Inhale 2 Puffs as instructed every 4 hours as needed for wheezing/shortness of breath. (Patient not taking: Reported on 06/17/2024) POTASSIUM-99 ORAL Take by mouth. (Patient not taking: Reported on 05/16/2024) Vitamin E49-Qrdbk Acid 0.5-1 mg tab Take by mouth. (Patient not taking: Reported on 05/16/2024) Blood Pressure Monitor (BLOOD PRESSURE KIT) Dx: HTN, labile blood pressures (Patient not taking: Reported on 09/10/2021 ) amitriptyline (ELAVIL) 10 mg tablet Take 1 tablet by mouth daily at bedtime. (Patient not taking: Reported on 09/10/2021 ) FAMILY HISTORY Problem Relation Age of Onset Hypertension Father other (Pancreatic cancer [Other]) Father Diabetes Father Social History Tobacco Use Smoking status: Every Day Current packs/day: 0.50 Average packs/day: 0.5 packs/day for 15.0 years (7.5 ttl pk-yrs) Types: Cigarettes Smokeless tobacco: Never Vaping Use Vaping status: Never Used Substance (more content not included)... [facility] 06-17-2024 History of Present illness Narrative Images from the original note were not included. Subjective Female with complaints of right sided jaw and ear pain. Patient says she does have bad teeth. Patient says she has had tooth infections before. Patient is not sure if it is a tooth infection or an ear infection. Patient denies any fever chills nausea vomiting. Patient denies any difficulty breathing. Patient denies any other symptoms. The history is provided by the patient. No american sign language interpreter was used. Dental Problem Review of Systems Constitutional: Negative. Skin: Negative. Objective Physical Exam Constitutional: Appearance: Normal appearance. HENT: Right Ear: Hearing, tympanic membrane, ear canal and external ear normal. Left Ear: Hearing, tympanic membrane, ear canal and external ear normal. Mouth/Throat: Mouth: Mucous membranes are moist. Tongue: No lesions. Tongue does not deviate from midline. Palate: No mass and lesions. Pharynx: Oropharynx is clear. Uvula midline. Comments: Significant dental caries noted. Is tender in the area marked blue above. No signs of abscesses at this time. No trismus noted. Cardiovascular: Rate and Rhythm: Normal rate and regular rhythm. Heart sounds: Normal heart sounds. Pulmonary: Effort: Pulmonary effort is normal. Breath sounds: Normal breath sounds. Neurological: Mental Status: She is alert. PAST MEDICAL HISTORY Diagnosis Date ADHD (attention deficit hyperactivity disorder) Anxiety Cocaine abuse ([facility]) 10/2013 Current smoker GERD (gastroesophageal reflux disease) GOITER NOS 05/31/2008 Previously with hyperthyroidism but presented with hypothyrodism in 05-26: US ordered US 05-26: 6.8 mm nodule in the mid R lobe with a heterogenously enlarged thyroid Hormone replacement therapy (HRT) 03/2012 Hypercholesterolemia 10/2012 Hypertension HYPOTHYROIDISM NOS 05/31/2008 TSH 0.07 (0.5-6) in 05-26: likely suppressed from thyrotoxicosis in the past (consider TRH testing) T3 86 (94-170) in 05-26 T4 4.2 (4.9-11) in 05-26 TU and FTI in therapeutic range as of 05-26 MRI 05-26 with NL findings and no pituitary issues Incisional pain 07/23/2012 Left carpal tunnel syndrome 03/25/2013 Marijuana abuse 12/2012, 10/2013 Morbid obesity (HCC) 05/31/2008 Pain in joint, lower leg 12/28/2009 Pain in thoracic spine 05/31/2008 Puncture wound of small intestine, open 03/26/2012 Right carpal tunnel syndrome 08/20/2012 Right upper quadrant abdominal pain 06/29/2014 Withdrawal from methamphetamine (HCC) 06/10/2020 & other substances. Rehab at 180 PAST SURGICAL HISTORY Procedure Laterality Date APPENDECTOMY 03/2012 same time as hysterectomy CARPAL TUNNEL 2013 left ENTERORRHAPHY MULTIPLE PERFORATIONS 03/24/12 x 2; during BSO EXTRACTION, ERUPTED TOOTH OR EXPOSED ROOT (ELEVATION AND/OR FORCEPS REMOVAL) 2015 infected tooth extracted INDUCED - EVACUATION x 2 NEUROPLASTY &/TRANSPOS MEDIAN NRV CARPAL TUNNE 08/20/2012 Carpal tunnel decomp - right S TUBAL LIGATION 1993 SALPINGO-OOPHORECTOMY COMPL/PRTL UNI/BI SPX 2011 Srpfhybj-jwjcufhaxjeu-gvzb separate from hysterectomy TOTAL ABDOMINAL HYSTERECT W/WO RMVL TUBE OVARY 2011 JANNA for fibroids ALLERGIES Lisinopril and Codeine MEDICATIONS DULoxetine (CYMBALTA) 60 mg capsule Take 1 capsule by mouth every 12 hours. pregabalin (LYRICA) 75 mg capsule Take 1 capsule by mouth every 12 hours. levothyroxine (LEVOXYL) 150 mcg tablet Take 1 tablet by mouth once daily. Take on empty stomach. For thyroid. amLODIPine (NORVASC) 10 mg tablet Take 1 tablet by mouth once daily. estrogens conjugated (PREMARIN) 1.25 mg tablet Take 1 tablet by mouth once daily. Hydrochlorothiazide 12.5 mg capsule Take 1 capsule by mouth once daily. amoxicillin (AMOXIL) 875 mg tablet Take 1 tablet by mouth two times a day for 5 days. albuterol HFA (PROVENTIL HFA, VENTOLIN HFA) 90 mcg/actuation inhaler Inhale 2 Puffs as instructed every 4 hours as needed for wheezing/shortness of breath. (Patient not taking: Reported on 06/17/2024) POTASSIUM-99 ORAL Take by mouth. (Patient not taking: Reported on 05/16/2024) Vitamin T45-Nerjw Acid 0.5-1 mg tab Take by mouth. (Patient not taking: Reported on 05/16/2024) Blood Pressure Monitor (BLOOD PRESSURE KIT) Dx: HTN, labile blood pressures (Patient not taking: Reported on 09/10/2021 ) amitriptyline (ELAVIL) 10 mg tablet Take 1 tablet by mouth daily at bedtime. (Patient not taking: Reported on 09/10/2021 ) FAMILY HISTORY Problem Relation Age of Onset Hypertension Father other (Pancreatic cancer [Other]) Father Diabetes Father Social History Tobacco Use Smoking status: Every Day Current packs/day: 0.50 Average packs/day: 0.5 packs/day for 15.0 years (7.5 ttl pk-yrs) Types: Cigarettes Smokeless tobacco: Never Vaping Use Vaping status: Never Used Substance Use Topics Alcohol use: Not Currently Comment: occasionally Drug use: Not Currently Comment: marijuana 1-2x's/week; cocaine-pt states rarely uses ASSESSMENT/PLAN: 1. Pain, dental - ICD9: 525.9, ICD10: K08.89 - AMOXICILLIN 875 MG TABLET Patient was educated about proper use of medication and supportive therapies. Patient was educated about red flag symptoms to watch for. Patient will follow-up with her dentist. Patient was agreeable to this care plan. Sudha Salgado APRN.RA documented in this encounter [facility] 05-16-2024 Instructions Stacie Jain APRN.CNP - 05/16/2024 5:22 PM EST ASSESSMENT/PLAN: 1. Sore throat - ICD9: 462, ICD10: J02.9 (primary diagnosis) - suspect viral - Group A strep molecular testing negative - Discussed supportive care treatment with fluids, rest and analgesia. - STREP A MOLECULAR (POC) 2. Acute cough - ICD9: 786.2, ICD10: R05.1 - XR CHEST 2V FRONTAL/LAT IMPRESSION: No acute radiographic abnormality. Sieve Repairer: MARICEL Transcribe Date/Time: May 16 2024 5:12P Dictated by : SANGEETHA MOSER MD 3. Wheezing - ICD9: 786.07, ICD10: R06.2 - PREDNISONE 20 MG TABLET - ALBUTEROL SULFATE HFA 90 MCG/ACTUATION AEROSOL INHALER - INHALATIONAL SPACING DEVICE 4. Pain due to dental caries - ICD9: 521.00, ICD10: K02.9 - amoxicillin as prescribed. - Follow-up with your PCP in 3-5 days if symptoms have not improved or sooner if symptoms worsen - Discussed red flags and need for immediate medical evaluation if any occur. - Discussed supportive care treatment with fluids, rest and analgesia. - Discussed expected course of illness Stacie Jain APRN.[employer] ACUTE BRONCHITIS: You have acute bronchitis. This means the airway passages in your lungs are inflamed. Bronchitis may be caused by viruses or bacteria. Inhaling cigarette smoke will always make it worse. Exposure to irritating chemicals or second hand smoke as well as allergies can contribute to bronchitis. Repeat episodes of bronchitis may cause lifelong lung problems. Acute bronchitis is usually treated with rest, fluids, cough medicine, and possibly antibiotics or inhaled medicine to open up the small airways. It is very important that you avoid smoke and drink increased amounts of fluids. A cool air vaporizer can help thin bronchial secretions. This makes it easier to cough and clear your chest. If you are a cigarette smoker, consider using nicotine gum or skin patches to help you withdraw. Recovery from bronchitis is often slow, but you should start feeling better after 2-3 days of treatment. Please call your doctor or return here if you have any of the following symptoms: Increased fever, chills, or chest pain. Severe shortness of breath or bloody sputum. Do not improve after 3 days of proper treatment. documented in this encounter [facility] 05-16-2024 History of Present illness Narrative Radiology Service Progress Note PATIENT NAME: Baljit German DATE OF SERVICE: May 16, 2024 TIME: 5:07 PM PATIENT IDENTITY VERIFICATION COMPLETED USING TWO (2) IDENTIFIERS: Name and Date of confirmed by patient verbally. FALL SCREENING: Has the patient had 2 falls in the last year or 1 fall with injury or currently using an Ambulatory Assistive Device (Walker, Cane, Wheelchair, Crutches, etc.)? No PATIENT GENDER DATA: Female. status: : No status: NO. PATIENT RELEVANT IMPLANT DATA REVIEWED: Not Applicable PATIENT PRESENTS WITH AN IMPLANTABLE OR ATTACHED SOLE MOLDER: No RADIOLOGY DEPARTMENT: General X-ray: Exam(s) Completed: Chest X-Ray PERIPHERAL IV DATA: Not applicable SIGNED BY: RT Toni(Chaim) May 16, 2024 5:07 PM documented in this encounter [facility] 05-16-2024 Note HNO ID: [id number] Author: CHEKO BURRELL RT(R) Service: Radiology Author Type: Technologist Type: Progress Notes Filed: 05/16/2024 17:11 Note Text: Radiology Service Progress Note PATIENT NAME: Baljit German DATE OF SERVICE: May 16, 2024 TIME: 5:07 PM PATIENT IDENTITY VERIFICATION COMPLETED USING TWO (2) IDENTIFIERS: Name and Date of confirmed by patient verbally. FALL SCREENING: Has the patient had 2 falls in the last year or 1 fall with injury or currently using an Ambulatory Assistive Device (Walker, Cane, Wheelchair, Crutches, etc.)? No PATIENT GENDER DATA: Female. status: : No status: NO. PATIENT RELEVANT IMPLANT DATA REVIEWED: Not Applicable PATIENT PRESENTS WITH AN IMPLANTABLE OR ATTACHED SOLE MOLDER: No RADIOLOGY DEPARTMENT: General X-ray: Exam(s) Completed: Chest X-Ray PERIPHERAL IV DATA: Not applicable SIGNED BY: RT Toni(Chaim) May 16, 2024 5:07 PM [facility] 05-16-2024 Note HNO ID: [id number] Author: STACIE JAIN APRN.[employer] Service: ? Author Type: Nurse Practitioner Type: Progress Notes Filed: 05/16/2024 17:23 Note Text: Subjective Cough Associated symptoms include headaches and sore throat. Pertinent negatives include no chest pain, no chills, no ear pain, no myalgias and no shortness of breath. Baljit German is a 54 year old female who presents with sore throat, cough, chest congestion for the past 3 days. She has not had a fever. She feels short of breath. States she is coughing up phlegm that tastes bad. After being roomed she also remembered she has had a toothache. States she has bad teeth and has pain in right upper molar for the past few days. Review of Systems Constitutional: Negative for chills, fever and malaise/fatigue. HENT: Positive for congestion and sore throat. Negative for ear pain. Respiratory: Positive for cough and sputum production. Negative for shortness of breath. Cardiovascular: Negative for chest pain. Gastrointestinal: Negative for diarrhea, nausea and vomiting. Musculoskeletal: Negative for myalgias. Neurological: Positive for headaches. BP 138/84 Pulse 71 Temp 36.8 ?C (98.2 ?F) (Tympanic) Resp 18 Wt 119.9 kg (264 lb 5.3 oz) LMP 02/19/2010 SpO2 98% BMI 45.37 kg/m? PAST MEDICAL HISTORY Diagnosis Date ADHD (attention deficit hyperactivity disorder) Anxiety Cocaine abuse (HCC) 10/2013 Current smoker GERD (gastroesophageal reflux disease) GOITER NOS 05/31/2008 Previously with hyperthyroidism but presented with hypothyrodism in 05-26: US ordered US 05-26: 6.8 mm nodule in the mid R lobe with a heterogenously enlarged thyroid Hormone replacement therapy (HRT) 03/2012 Hypercholesterolemia 10/2012 Hypertension HYPOTHYROIDISM NOS 05/31/2008 TSH 0.07 (0.5-6) in 05-26: likely suppressed from thyrotoxicosis in the past (consider TRH testing) T3 86 (94-170) in 05-26 T4 4.2 (4.9-11) in 05-26 TU and FTI in therapeutic range as of 05-26 MRI 05-26 with NL findings and no pituitary issues Incisional pain 07/23/2012 Left carpal tunnel syndrome 03/25/2013 Marijuana abuse 12/2012, 10/2013 Morbid obesity (HCC) 05/31/2008 Pain in joint, lower leg 12/28/2009 Pain in thoracic spine 05/31/2008 Puncture wound of small intestine, open 03/26/2012 Right carpal tunnel syndrome 08/20/2012 Right upper quadrant abdominal pain 06/29/2014 Withdrawal from methamphetamine (HCC) 06/10/2020 AND other substances. Rehab at 180 PAST SURGICAL HISTORY Procedure Laterality Date APPENDECTOMY 03/2012 same time as hysterectomy CARPAL TUNNEL 2013 left ENTERORRHAPHY MULTIPLE PERFORATIONS 03/24/12 x 2; during BSO EXTRACTION, ERUPTED TOOTH OR EXPOSED ROOT (ELEVATION AND/OR FORCEPS REMOVAL) 2016 infected tooth extracted INDUCED - EVACUATION x 2 NEUROPLASTY AND/TRANSPOS MEDIAN NRV CARPAL TUNNE 08/20/2012 Carpal tunnel decomp - right S TUBAL LIGATION 1993 SALPINGO-OOPHORECTOMY COMPL/PRTL UNI/BI SPX 2011 Kishnkma-akmwxpykkoun-vcpq separate from hysterectomy TOTAL ABDOMINAL HYSTERECT W/WO RMVL TUBE OVARY 2011 JANNA for fibroids ALLERGIES Codeine and Lisinopril MEDICATIONS DULoxetine (CYMBALTA) 60 mg capsule Take 1 capsule by mouth every 12 hours. pregabalin (LYRICA) 75 mg capsule Take 1 capsule by mouth every 12 hours. levothyroxine (LEVOXYL) 150 mcg tablet Take 1 tablet by mouth once daily. Take on empty stomach. For thyroid. amLODIPine (NORVASC) 10 mg tablet Take 1 tablet by mouth once daily. estrogens conjugated (PREMARIN) 1.25 mg tablet Take 1 tablet by mouth once daily. Hydrochlorothiazide 12.5 mg capsule Take 1 capsule by mouth once daily. POTASSIUM-99 ORAL Take by mouth. (Patient not taking: Reported on 05/16/2024) Vitamin W41-Clfid Acid 0.5-1 mg tab Take by mouth. (Patient not taking: Reported on 05/16/2024) Blood Pressure Monitor (BLOOD PRESSURE KIT) Dx: HTN, labile blood pressures (Patient not taking: Reported on 09/10/2021 ) amitriptyline (ELAVIL) 10 mg tablet Take 1 tablet by mouth daily at bedtime. (Patient not taking: Reported on 09/10/2021 ) FAMILY HISTORY Problem Relation Age of Onset Hypertension Father other (Pancreatic cancer [Other]) Father Diabetes Father Social History Tobacco Use Smoking status: Every Day Current packs/day: 0.50 Average packs/day: 0.5 packs/day for 15.0 years (7.5 ttl pk-yrs) Types: Cigarettes Smokeless tobacco: Never Vaping Use Vaping status: Never Used Substance Use Topics Alcohol use: Not Currently Comment: occasionally Drug use: Not Currently Comment: marijuana 1-2x's/week; cocaine-pt states rarely uses Objective Physical Exam Vitals and nursing note reviewed. HENT: Right Ear: Tympanic membrane, ear canal and external ear normal. Left Ear: Tympanic membrane, ear canal and external ear normal. Nose: Nose normal. Mouth/Throat: Dentition: Dental caries present. Pharynx: Uvula midline. No oropharyn (more content not included)... [facility] 05-16-2024 History of Present illness Narrative Images from the original note were not included. Subjective Cough Associated symptoms include headaches and sore throat. Pertinent negatives include no chest pain, no chills, no ear pain, no myalgias and no shortness of breath. Baljit German is a 54 year old female who presents with sore throat, cough, chest congestion for the past 3 days. She has not had a fever. She feels short of breath. States she is coughing up phlegm that tastes bad. After being roomed she also remembered she has had a toothache. States she has bad teeth and has pain in right upper molar for the past few days. Review of Systems Constitutional: Negative for chills, fever and malaise/fatigue. HENT: Positive for congestion and sore throat. Negative for ear pain. Respiratory: Positive for cough and sputum production. Negative for shortness of breath. Cardiovascular: Negative for chest pain. Gastrointestinal: Negative for diarrhea, nausea and vomiting. Musculoskeletal: Negative for myalgias. Neurological: Positive for headaches. BP 138/84 Pulse 71 Temp 36.8 C (98.2 F) (Tympanic) Resp 18 Wt 119.9 kg (264 lb 5.3 oz) LMP 02/19/2010 SpO2 98% BMI 45.37 kg/m PAST MEDICAL HISTORY Diagnosis Date ADHD (attention deficit hyperactivity disorder) Anxiety Cocaine abuse (HCC) 10/2013 Current smoker GERD (gastroesophageal reflux disease) GOITER NOS 05/31/2008 Previously with hyperthyroidism but presented with hypothyrodism in 05-26: US ordered US 05-26: 6.8 mm nodule in the mid R lobe with a heterogenously enlarged thyroid Hormone replacement therapy (HRT) 03/2012 Hypercholesterolemia 10/2012 Hypertension HYPOTHYROIDISM NOS 05/31/2008 TSH 0.07 (0.5-6) in 05-26: likely suppressed from thyrotoxicosis in the past (consider TRH testing) T3 86 (94-170) in 05-26 T4 4.2 (4.9-11) in 05-26 TU and FTI in therapeutic range as of 05-26 MRI 05-26 with NL findings and no pituitary issues Incisional pain 07/23/2012 Left carpal tunnel syndrome 03/25/2013 Marijuana abuse 12/2012, 10/2013 Morbid obesity (HCC) 05/31/2008 Pain in joint, lower leg 12/28/2009 Pain in thoracic spine 05/31/2008 Puncture wound of small intestine, open 03/26/2012 Right carpal tunnel syndrome 08/20/2012 Right upper quadrant abdominal pain 06/29/2014 Withdrawal from methamphetamine (HCC) 06/10/2020 & other substances. 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 pregabalin (LYRICA) 75 mg capsule Take 1 capsule by mouth every 12 hours. levothyroxine (LEVOXYL) 150 mcg tablet Take 1 tablet by mouth once daily. Take on empty stomach. For thyroid. amLODIPine (NORVASC) 10 mg tablet Take 1 tablet by mouth once daily. estrogens conjugated (PREMARIN) 1.25 mg tablet Take 1 tablet by mouth once daily. Hydrochlorothiazide 12.5 mg capsule Take 1 capsule by mouth once daily. POTASSIUM-99 ORAL Take by mouth. (Patient not taking: Reported on 05/16/2024) Vitamin I36-Hnlnk Acid 0.5-1 mg tab Take by mouth. (Patient not taking: Reported on 05/16/2024) Blood Pressure Monitor (BLOOD PRESSURE KIT) Dx: HTN, labile blood pressures (Patient not taking: Reported on 09/10/2021 ) amitriptyline (ELAVIL) 10 mg tablet Take 1 tablet by mouth daily at bedtime. (Patient not taking: Reported on 09/10/2021 ) FAMILY HISTORY Problem Relation Age of Onset Hypertension Father other (Pancreatic cancer [Other]) Father Diabetes Father Social History Tobacco Use Smoking status: Every Day Current packs/day: 0.50 Average packs/day: 0.5 packs/day for 15.0 years (7.5 ttl pk-yrs) Types: Cigarettes Smokeless tobacco: Never Vaping Use Vaping status: Never Used Substance Use Topics Alcohol use: Not Currently Comment: occasionally Drug use: Not Currently Comment: marijuana 1-2x's/week; cocaine-pt states rarely uses Objective Physical Exam Vitals and nursing note reviewed. HENT: Right Ear: Tympanic membrane, ear canal and external ear normal. Left Ear: Tympanic membrane, ear canal and external ear normal. Nose: Nose normal. Mouth/Throat: Dentition: Dental caries present. Pharynx: Uvula midline. No oropharyngeal exudate or posterior oropharyngeal erythema. Cardiovascular: Rate and Rhythm: Normal rate and regular rhythm. Heart sounds: Normal heart sounds. Pulmonary: Effort: Pulmonary effort is normal. No respiratory distress. Breath sounds: Wheezing present. No rales. Musculoskeletal: Cervical back: Neck supple. Lymphadenopathy: Cervical: No cervical adenopathy. Skin: General: Skin is warm and dry. Findings: No erythema or rash. Neurological: Mental Status: She is alert. ASSESSMENT/PLAN: 1. Sore throat - ICD9: 462, ICD10: J02.9 (primary diagnosis) - suspect viral - Group A strep molecular testing negative - Discussed supportive care treatment with fluids, rest and analgesia. - STREP A MOLECULAR (POC) 2. Acute cough - ICD9: 786.2, ICD10: R05.1 - XR CHEST 2V FRONTAL/LAT IMPRESSION: No acute radiographic abnormality. Sieve Repairer: MARICEL Transcribe Date/Time: May 16 2024 5:12P Dictated by : SANGEETHA MOSER MD 3. Wheezing - ICD9: 786.07, ICD10: R06.2 - PREDNISONE 20 MG TABLET - ALBUTEROL SULFATE HFA 90 MCG/ACTUATION AEROSOL INHALER - INHALATIONAL SPACING DEVICE 4. Pain due to dental caries - ICD9: 521.00, ICD10: K02.9 - amoxicillin as prescribed. - Follow-up with your PCP in 3-5 days if symptoms have not improved or sooner if symptoms worsen - Discussed red flags and need for immediate medical evaluation if any occur. - Discussed supportive care treatment with fluids, rest and analgesia. - Discussed expected course of illness Stacie Jain APRN.WRAPPER HAND documented in this encounter [facility] 09-10-2021 History of Present illness Narrative Images from the original note were not included. Subjective HPI HPI Baljit German is a 51 year old female who presents today for CC of dental pain. This started 4 days ago. Has tried otc medication for relief. Symptoms are worsened by chewing. Risk factors hx of recent dental infection, stopped clindamycin 2 weeks ago. Denies uri symptoms. Denies possibility of being . .Patient presents with: Pain: upper (LT ) tooth pain rated 9, x4 days Fever: Pt denied SOB, chest pain, headache rated 7 PAST MEDICAL HISTORY Diagnosis Date ADHD (attention deficit hyperactivity disorder) Anxiety Cocaine abuse (HCC) 10/2013 Current smoker GERD (gastroesophageal reflux disease) GOITER NOS 05/31/2008 Previously with hyperthyroidism but presented with hypothyrodism in 05-26: US ordered US 05-26: 6.8 mm nodule in the mid R lobe with a heterogenously enlarged thyroid Hormone replacement therapy (HRT) 03/2012 Hypercholesterolemia 10/2012 Hypertension HYPOTHYROIDISM NOS 05/31/2008 TSH 0.07 (0.5-6) in 05-26: likely suppressed from thyrotoxicosis in the past (consider TRH testing) T3 86 (94-170) in 05-26 T4 4.2 (4.9-11) in 05-26 TU and FTI in therapeutic range as of 05-26 MRI 05-26 with NL findings and no pituitary issues Incisional pain 07/23/2012 Left carpal tunnel syndrome 03/25/2013 Marijuana abuse 12/2012, 10/2013 Morbid obesity (HCC) 05/31/2008 Pain in joint, lower leg 12/28/2009 Pain in thoracic spine 05/31/2008 Puncture wound of small intestine, open 03/26/2012 Right carpal tunnel syndrome 08/20/2012 Right upper quadrant abdominal pain 06/29/2014 Withdrawal from methamphetamine (HCC) 06/10/2020 & other substances. Rehab at 180 PAST SURGICAL HISTORY Procedure Laterality Date APPENDECTOMY 03/2012 same time as hysterectomy CARPAL TUNNEL 2013 left ENTERORRHAPHY MULTIPLE PERFORATIONS 03/24/12 x 2; during BSO EXTRACTION, ERUPTED TOOTH OR EXPOSED ROOT (ELEVATION AND/OR FORCEPS REMOVAL) 2015 infected tooth extracted INDUCED - EVACUATION x 2 NEUROPLASTY &/TRANSPOS MEDIAN NRV CARPAL TUNNE 08/20/2012 Carpal tunnel decomp - right S TUBAL LIGATION 1993 SALPINGO-OOPHORECTOMY COMPL/PRTL UNI/BI SPX 2011 Fcxlninz-rubbzrgpaouz-sddp separate from hysterectomy TOTAL ABDOMINAL HYSTERECT W/WO RMVL TUBE OVARY 2011 JANNA for fibroids ALLERGIES Codeine and Lisinopril MEDICATIONS POTASSIUM-99 ORAL Take by mouth. Vitamin X25-Stiqy Acid 0.5-1 mg tab Take by mouth. levothyroxine (LEVOXYL) 150 mcg tablet Take 1 tablet by mouth once daily. Take on empty stomach. For thyroid. amLODIPine (NORVASC) 10 mg tablet Take 1 tablet by mouth once daily. estrogens conjugated (PREMARIN) 1.25 mg tablet Take 1 tablet by mouth once daily. Hydrochlorothiazide 12.5 mg capsule Take 1 capsule by mouth once daily. amoxicillin-clavulanic acid (AUGMENTIN) 875-125 mg per tablet Take 1 tablet by mouth twice daily for 10 days. Blood Pressure Monitor (BLOOD PRESSURE KIT) Dx: HTN, labile blood pressures amitriptyline (ELAVIL) 10 mg tablet Take 1 tablet by mouth daily at bedtime. FAMILY HISTORY Problem Relation Age of Onset Hypertension Father other (Pancreatic cancer [Other]) Father Diabetes Father Social History Tobacco Use Smoking status: Current Every Day Smoker Packs/day: 0.50 Years: 15.00 Pack years: 7.50 Types: Cigarettes Smokeless tobacco: Never Used Vaping Use Vaping Use: Never used Substance Use Topics Alcohol use: Not Currently Comment: occasionally Drug use: Not Currently Comment: marijuana 1-2x's/week; cocaine-pt states rarely uses ROS Objective Blood pressure 140/82, pulse 73, temperature 36.5 C (97.7 F), resp. rate 20, weight 117.8 kg (259 lb 12.8 oz), last menstrual period 02/19/2010, SpO2 98 %. Physical Exam Constitutional: General: She is not in acute distress. Appearance: She is not toxic-appearing or diaphoretic. HENT: Head: Normocephalic and atraumatic. Nose: Nose normal. Mouth/Throat: Dentition: Abnormal dentition. Does not have dentures. Dental tenderness present. No gingival swelling, dental abscesses or gum lesions. Pulmonary: Effort: Pulmonary effort is normal. No accessory muscle usage or respiratory distress. Lymphadenopathy: Cervical: No cervical adenopathy. Right cervical: No superficial cervical adenopathy. Left cervical: No superficial cervical adenopathy. Neurological: Mental Status: She is alert and oriented to person, place, and time. ASSESSMENT/PLAN: 1. Toothache - ICD9: 525.9, ICD10: K08.89 (primary diagnosis) Take medication as ordered See dentist reba Follow up if signs of infection worsen - AMOXICILLIN 875 MG-POTASSIUM CLAVULANATE 125 MG TABLET 2. Feared condition not demonstrated - ICD9: V65.5, ICD10: Z71.1 Reports gets yeast infection when taking amox. If s/s yeast inf occurs fill/take. - FLUCONAZOLE 150 MG TABLET Agrees to plan Nicholas Bryant APRN.CNP documented in this encounter [facility] 05-31-2008 History of Past i llness Narrative Problem Noted Date Resolved Date Routine general medical exam ination at a health care facility 05/31/2008 08/03/2015 Overview: Moved from [place] in 04-22: she was there for 14 years Worked at the [employer] in [place] Hct 39.7% in 05-26 LDL 116, HDL 68, TG 84 in 05-26 Iron 26 (30-140), Ferritin 13 (9-150) in 05-26 OBESITY NOS 05/31/2008 08/03/2015 Unspecified sleep apnea 05/31/2008 08/03/19 16 Overview: Need to consider testing after review of TSH in 05-26 documented as of this encounter (statuses as of 09/10/2021) [facility] Diagnosis Toothache- Primary Unspecified disorder of the teeth and supporting structures Feared condition not demonstrated Person with feared complaint in whom no diagnosis was made [facility] Diagnosis Onset Date Resolution Status Trigger thumb of both hands acute COVID-19 acute COVID-19 acute Vitamin D deficiency acute ADHD (attention deficit hyperactivity disorder) chronic Hypothyroidism (acquired) ch ronic ANNETTE (obstructive sleep apnea) chronic Low libido noneactive [facility] Work Phone: Evaluation note* Diagnosis Tobacco abuse- Primary Tobacco use disorder Hypothyroidism, unspecified type Gastroesophageal reflux disease, esophagitis presence not specified Fibromyalgia Mylagia and myositis, unspecified Sleep apnea, unspecified type Insomnia, unspecified type Tendinitis Enthesopathy of unspecified site Sore throat- Primary Acute pharyngitis Acute cough Wheezing Pain due to dental caries Unspecified dental caries Acute cough [facility] Diagnosis Tobacco abuse- Primary Tobacco use disorder Hypothyroidism, unspecified type Gastroesophageal reflux disease, esophagitis presence not specified Fibromyalgia Mylagia and myositis, unspecified Sleep apnea, unspecified type Insomnia, unspecified type Tendinitis Enthesopathy of unspecified site Acute cough [facility] Diagnosis Tobacco abuse- Primary Tobacco use disorder Hypothyroidism, unspecified type Gastroesophageal reflux disease, esophagitis presence not specified Fibromyalgia Mylagia and myositis, unspecified Sleep apnea, unspecified type Insomnia, unspecified type Tendinitis Enthesopathy of unspecified site Pain, dental- Primary Unspecified disorder of the teeth and supporting structures [facility] Diagnosis Tobacco abuse- Primary Tobacco use disorder Hypothyroidism, unspecified type Gastroesophageal reflux disease, esophagitis presence not specified Fibromyalgia Mylagia and myositis, unspecified Sleep apnea, unspecified type Insomnia, unspecified type Tendinitis Enthesopathy of unspecified site Viral illness- Primary Unspecified viral infection, in conditions classified elsewhere and of unspecified site [facility] Diagnosis Tobacco abuse- Primary Tobacco use disorder Hypothyroidism, unspecified type Gastroesophageal reflux disease, esophagitis presence not specified Fibromyalgia Mylagia and myositis, unspecified Sleep apnea, unspecified type Insomnia, unspecified type Tendinitis Enthesopathy of unspecified site Urinary urgency- Primary Urgency of urination [facility] Diagnosis Tobacco abuse- Primary Tobacco use disorder Hypothyroidism, unspecified type Gastroesophageal reflux disease, esophagitis presence not specified Fibromyalgia Mylagia and myositis, unspecified Sleep apnea, unspecified type Insomnia, unspecified type Tendinitis Enthesopathy of unspecified site Vaginal yeast infection- Primary Candidiasis of vulva and vagina documented in this encounter [facility] Summary Purpose Family History No Family History Records Found Relationship Condition Age at Onset Recorded Date/T liana sister Coronary artery disease Unknown Myocardial infarction Unknown Sudden cardiac Unknown father Malignant neoplasm of pancreas Unknown Advance Directives No Advanced Directives Records Found Advance Directive Response Recorded Date/ Time Living Will No November 12, 2021 2:07pm Power of Fertilizing Machine Operator No November 12 2:07pm Chief Complaint and Reason for Visit Chief Complaint bilateral thumb RT THUMB A1 DIMA RELEASE,LT THUMB INJECTION LBP/PT HAS RX COVID CARMEN/ILL X2DAYS COVID 19 MED ?'S/MENTAL ILLNESS/MENOPAUSE Reason for Visit Trigger thumb of bot h hands COVID-19 COVID-19 Vitamin D deficiency ADHD (attention deficit hyperactivity disorder) Hypothyroidism (acquired) ANNETTE (obstructive sleep apnea) Low libido Additional Source Comments INFORMATION SOURCE (unrecogn ized section and content) DATE CREATED AUTHOR 09/03/2018 [facility] DATE CREATED AUTHOR AUTHOR'S ORGANIZ ATION 01/13/2019 [employer] DATE CREATED AUTHOR AUTHOR'S ORGANIZ ATION 07/11/2020 [facility] DATE CREATED AUTHOR AUTHOR'S ORGANIZ ATION 12/31/2024 [facility] DATE CREATED AUTHOR AUTHOR'S ORGANIZ ATION 01/08/2025 [facility] Source Comments (unrecognize d section and content) In the event this informatio n is protected by the Federal Confidentiality of Alcohol and Drug Abuse Patient Records regulations: The Federal rules restrict any use of the information to criminally investigate or prosecute any alcohol or drug abuse patient.[facility] the event this information is protected by the Federal Confidentiality of Alcohol and Drug Abuse Patient Records regulations: The Federal rules restrict any use of the information to criminally investigate or prosecute any alcohol or drug abuse patient.[facility] the event this information is protected by the Federal Confidentiality of Alcohol and Drug Abuse Patient Records regulations: The Federal rules restrict any use of the information to criminally investigate or prosecute any alcohol or drug abuse patient.[facility] the event this information is protected by the Federal Confidentiality of Alcohol and Drug Abuse Patient Records regulations: The Federal rules restrict any use of the information to criminally investigate or prosecute any alcohol or drug abuse patient.[facility] the event this information is protected by the Federal Confidentiality of Alcohol and Drug Abuse Patient Records regulations: The Federal rules restrict any use of the information to criminally investigate or prosecute any alcohol or drug abuse patient.[facility] the event this information is protected by the Federal Confidentiality of Alcohol and Drug Abuse Patient Records regulations: The Federal rules restrict any use of the information to criminally investigate or prosecute any alcohol or drug abuse patient.[facility] the event this information is protected by the Federal Confidentiality of Alcohol and Drug Abuse Patient Records regulations: The Federal rules restrict any use of the information to criminally investigate or prosecute any alcohol or drug abuse patient.[facility] the event this information is protected by the Federal Confidentiality of Alcohol and Drug Abuse Patient Records regulations: The Federal rules restrict any use of the information to criminally investigate or prosecute any alcohol or drug abuse patient.[facility] Reason for Visit (unrecogniz ed section and content) Reason Comments Pain upper (LT ) tooth pa in rated 9, x4 days Fever Pt denied SOB, chest pain, headache rated 7 Reason Comments Cough Cough, ST and conges tion x 3 days Reason Comments Dental Problem Pain in right lower jaw radiating into right ear, concern for infected tooth Reason Comments Sore Throat R ear pain/ jaw pain x4 days, Shortness of Breath, fatigue Reason Comments UTI pinworms Care Teams (unrecognized sec tion and content) Mud Mill Tender Relationship Specialty Start Date End Date Erika Reynolds MD [address] [place] [address] PCP - General Internal Medicine 07/10/21 Mud Mill Tender Relationship Specialty Start Date End Date Erika Reynolds MD [address] [place] [address] PCP - General Internal Medicine 07/10/21 Mud Mill Tender Relationship Specialty Start Date End Date Erika Reynolds MD [address] [place] [address] PCP - General Internal Medicine 07/10/21 Mud Mill Tender Relationship Specialty Start Date End Date Erika Reynolds MD [address] [place] [address] PCP - General Internal Medicine 07/10/21 Mud Mill Tender Relationship Specialty Start Date End Date Erika Reynolds MD [address] [place] [address] PCP - General Internal Medicine 07/10/21 Mud Mill Tender Relationship Specialty Start Date End Date Erika Reynolds MD [address] [place] [address] PCP - General Internal Medicine 07/10/21 Mud Mill Tender Relationship Specialty Start Date End Date Erika Reynolds MD [address] [place] [id number] PCP - General Internal Medicine 07/10/21 Goals (unrecognized section and content) Goals may be documented in a n alternate section FOR RECORDS PERTAINING TO PATIENTS WHO ARE OR HAVE BEEN ENROLLED IN A CHEMICAL DEPENDENCY/SUBSTANCEABUSE PROGRAM, SOME INFORMATION MAY BE OMITTED. This clinical summary was aggregated from multiple sources. Caution should be exercised in using it in the provision of clinical care. This summary normalizes information from multiple sources, and as a consequence, information in this document may materially change the coding, format and clinical context of patient data. In addition, data may be omitted in some cases. CLINICAL DECISIONS SHOULD BE BASED ON THE PRIMARY CLINICAL RECORDS. [employer] provides no warranty or guarantee of the accuracy or completeness of information in this document.
== END 2025-01-19 06:36 | disposition home or self-care (01) ==
PROVIDERS: Emergency Provider Emergency Medicine; PCP Internal Medicine; Visit Provider Emergency Medicine
DX: M79.631 Pain in right forearm (principal); I10 Essential (primary) hypertension; Z90.710 Acquired absence of both cervix and uterus; E03.9 Hypothyroidism, unspecified; Z98.51 Tubal ligation status; F17.210 Nicotine dependence, cigarettes, uncomplicated; F12.90 Cannabis use, unspecified, uncomplicated; R20.8 Other disturbances of skin sensation
CPT/HCPCS: 99282

== ENCOUNTER → 2025-04-28 | Outpatient (CLI) | payer MEDICAID, SELFPAY ==
--- OUTSIDE RECORDS SUMMARY | 2025-04-28 16:49 | XMS RPT_ITS | CCD ---
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 improve ability of physical actions for home/community/work/lei sure, To improve gait and locomotor functions, To improve health of tissue, To decrease soft tissue restriction, To increase flexibility/ROM and To improve candelaria (more content not included)... Normal [facility] Emergency Department Summary on 01-19-2025 Emergency Department Summary [facility] Medical Records Department [address] [place] [address] Emergency Department Summary 01/19/25 MR#: [id number] Acct: [id number] Name: BALJIT GERMAN Rep #: [id number] : 1970 55 From: Jean-Claude Baker MD PCP: Dr. Shahzad Reynolds MD Status:PRE ER Location: ED HPI History of Present Illness HPI Narrative: 55-year-old female vinns-ojij-gcmxebak. History of hypertension and hypothyroid disease. Denies any recent trauma or injury to her arm. States she had burning discomfort which started 30 minutes ago this morning. No prior history. Denies any prior surgery to her right upper extremity except she did have carpal tunnel surgery years ago. Denies any other complaints. Chief Complaint: Upper Extremity Injury Informant: patient Occured/Mechanism Mechanism/Context: No injury and No blunt trauma Onset/Context/Timing Onset: Today and Hours (About 30 minutes ago.) Context: Gradual Onset Timing: Continuous Quality of Pain: Burning Current Severity: Mild Maximum Severity: Mild Associated Symptoms Associated Symptoms: Negative for Parasthesia, Weakness or Loss of Funtion Narrative Narrative: 55-year-old female complaining of burning to her right forearm and started 30 minutes ago. Denies any fall injury or trauma. Prior carpal tunnel to this hand years ago. She is right-hand dominant. Denies any other complaints. She has not been ill. No fever or chills. No discolor of the skin. Prior similar symptoms: No Recent Illness/Hospitalization : No PFSH PFS Medical History Fatigue Constipation Bloating Bilateral lower [...] .Route 5 12/25/24 Rx .COMPLEX #90 tabs levothyroxine 125 mcg tablet See Rx Instructions .Route 5 12/26/24 Rx .COMPLEX #60 tabs conjugated estrogens 0.9 mg tablet 0.9 mg PO DAILY #90 tabs 2 5 12/25/24 Rx cyclobenzaprine 10 mg tablet 10 mg PO TID PRN 12/26/24 Unknown History duloxetine 60 mg capsule,delayed 60 mg PO BID 12/26/24 12/25/24 His tory release pregabalin 100 mg capsule 100 mg PO BID 12/26/24 12/25/24 Hi story hydrochlorothiazide 12.5 mg tablet See Rx Instructions .Route 01/17 Unknown Rx .COMPLEX #90 tabs Allergy/AdvReac Type Severity Reaction Status Date / Time codeine Allergy Itching Verified 01/19/25 06:15 lisinopril Allergy Angioedema Verified 01/19/25 06:15 Family History Sister , of ID CAD (coronary artery disease) Myocardial infarction Sudden [...] you participate in: none ROS ROS ED ROS Narrative Denies recent illness. Constitutional Constitutional ED: Denies chills or fever(s) Eyes Eyes: Denies blurry vision ENT ENT ED: Denies ear pain Cardiovascular C (more content not included)... Normal [facility] Internal Medicine Office Vis iton 2025 Internal Medicine Office Visit [facility] [address] [place], [place] [address] OFFICE VISIT Date of Service: 01/04/25 MR#: [id number] Acct: [id number] Name: BALJIT GERMAN Rep #: [id number] : 1970 Provider: TARYN Rodriguez Age/Sex: 55/F [place] [facility] [place]: Signed Intake Vital [...] Visit Reasons: 12/28 (8:45am) Called. Left VM. Livestock Handler Required: No Is patient in pain?: No [...] capsule 100 mg PO BID 12/26/24 01/04/25 Ga story Nurse's Note: Pt is here for f/u from last visit and when she went to the ER she states the chest pain comes and goes, she has no specific ?'s at this time. COUNTS INCLUDE 234 BEDS AT THE [facility] Medical History Fatigue Constipation Bloating Bilateral [...] tubal ligation Family History Sister , of ID CAD (coronary artery disease) Myocardial infarction Sudden [...] just a (more content not included)... Normal [facility] 12 Lead EKGon 12-26-2024 12 Lead EKG [facility] Cardiovascular Services [address] [place] [address] 12 Lead EKG 12/26/24 1424 MR#: [id number] Acct: [id number] Name: BALJIT GERMAN Rep #: [id number] : 1970 54 From: Kai Lucero MD [...] variant Abnormal ECG Confirmed by Kai Lucero ([id number]), editor sound BARBIE SUNG ([id number]) on 12/27/2024 11:41:49 AM Referred By: DEMARCO/RYDER Confirmed By: Kai Lucero 12/27/24 1141 Date Kai Lucero MD CC: Dr. Gabriel Stoll DO; Dr. Shahzad Reynolds MD Signed Normal [facility] Basic Metabolic Profile (BMP )on 12-26-2024 BUN/CRE 12.4 RATIO Normal 10-20 [facility] Comment on above: Performed By: #### L 501.9520, L100.0100 #### [facility] Laboratory [address] [place], [address] Calcium [Mass/Vol] 9.7 mg/dL Normal 7.6-11.0 [facility] Comment on above: Performed By: #### L 501.9520, L100.0100 #### [facility] [address] [place], [address] Chloride [Moles/Vol] 99 mmol/L Normal 98-108 [facility] Comment on above: Performed By: #### L 501.9520, L100.0100 #### [facility] [address] [place], [address] CO2 [Moles/Vol] 24.9 mmol/L Normal 21.0-32.0 [facility] Comment on above: Performed By: #### L 501.9520, L100.0100 #### [facility] [address] [place], [address] Creatinine [Mass/Vol] 0.70 mg/dL Normal 0.70-1.20 [facility] Comment on above: Performed By: #### L 501.9520, L100.0100 #### [facility] [address] [place], [address] GAP 14 Normal 5-15 [facility] Comment on above: Performed By: #### L 501.9520, L100.0100 #### [facility] [address] [place], [address] GFR/1.73 sq M.predicted among non-blacks MDRD (S/P/Bld) [Vol rate/Area] 104 mL/min/{1.73_m2} Normal >60 [facility] Comment on above: Result Comment: mL/m in/1.73m2 CKD-EPI Creatinine Equation (2020) Performed By: #### L 501.9520, L100.0100 #### [facility] [address] [place], [address] Glucose [Mass/Vol] 123 mg/dL High 70-99 [facility] Comment on above: Performed By: #### L 501.9520, L100.0100 #### [facility] [address] [place], [address] Potassium [Moles/Vol] 3.6 mmol/L Normal 3.3-5.1 [facility] Comment on above: Performed By: #### L 501.9520, L100.0100 #### [facility] [address] [place], [address] Sodium [Moles/Vol] 138 mmol/L Normal 133-145 [facility] Comment on above: Performed By: #### L 501.9520, L100.0100 #### [facility] [address] [place], [address] Urea nitrogen [Mass/Vol] 9 mg/dL Normal 4-19 [facility] Comment on above: Performed By: #### L 501.9520, L100.0100 #### [facility] [address] [place], [address] CBC W/Diff, Automatedon 08-05 18-2024 Absolute Lymph 4.07 X10 3/uL Normal 0.83-4.51 [facility] Comment on above: Performed By: #### L 501.9520, L100.0100 #### [facility] [address] [place], [address] Absolute Neut 2.9 X10 3/uL Normal 2.0-7.7 [facility] Comment on above: Performed By: #### L 501.9520, L100.0100 #### [facility] [address] [place], [address] Basophils/100 WBC (Bld) 1.2 % High 0-1 [facility] Comment on above: Performed By: #### L 501.9520, L100.0100 #### [facility] [address] [place], [address] Eosinophils/100 WBC (Bld) 6.5 % High 0-5 [facility] Comment on above: Performed By: #### L 501.9520, L100.0100 #### [facility] [address] [place], [address] Erythrocyte distribution width (RBC) [Ratio] 13.1 % Normal 11.6-14.6 [facility] Comment on above: Performed By: #### L 501.9520, L100.0100 #### [facility] [address] [place], [address] Hematocrit (Bld) [Volume fraction] 40.8 % Normal 37-47 [facility] Comment on above: Performed By: #### L 501.9520, L100.0100 #### [facility] [address] [place], [address] Hemoglobin (Bld) [Mass/Vol] 13.4 g/dL Normal 12.0-15.0 [facility] Comment on above: Performed By: #### L 501.9520, L100.0100 #### [facility] [address] [place], [address] IG% 0.200 Normal 0.0-0.9 [facility] Comment on above: Result Comment: IG% - Immature Granulocytes (promyelocytes, myelocytes and metamyelocytes) > 1% indicates that a LEFT SHIFT is Present. Performed By: #### L 501.9520, L100.0100 #### [facility] [address] [place], [address] Lymphocytes/100 WBC (Bld) 50.1 % High 19-41 [facility] Comment on above: Performed By: #### L 501.9520, L100.0100 #### [facility] [address] [place], [address] MCH (RBC) [Entitic mass] 27.2 pg Normal 27.0-32.0 [facility] Comment on above: Performed By: #### L 501.9520, L100.0100 #### [facility] [address] [place], [address] MCHC (RBC) [Mass/Vol] 32.8 g/dL Normal 32-36 [facility] Comment on above: Performed By: #### L 501.9520, L100.0100 #### [facility] [address] [place], [address] MCV (RBC) [Entitic vol] 82.9 fL Normal 81-99 [facility] Comment on above: Performed By: #### L 501.9520, L100.0100 #### [facility] [address] [place], [address] Monocytes/100 WBC (Bld) 6.3 % Normal 0-10 [facility] Comment on above: Performed By: #### L 501.9520, L100.0100 #### [facility] [address] [place], [address] Neutrophils/100 WBC (Bld) 35.7 % Low 47-70 [facility] Comment on above: Performed By: #### L 501.9520, L100.0100 #### [facility] [address] [place], [address] Nucleated RBC (Bld) [#/Vol] 0 10*3/uL Normal 0-5 [facility] Comment on above: Performed By: #### L 501.9520, L100.0100 #### [facility] [address] [place], [address] Platelet mean volume (Bld) [Entitic vol] 10.3 fL Normal 6.2-12.0 [facility] Comment on above: Performed By: #### L 501.9520, L100.0100 #### [facility] [address] [place], [address] Platelets (Bld) [#/Vol] 316 10*3/uL Normal 150-450 [facility] Comment on above: Performed By: #### L 501.9520, L100.0100 #### [facility] [address] [place], [address] RBC (Bld) [#/Vol] 4.92 10*6/uL Normal 4.2-5.4 [facility] Comment on above: Performed By: #### L 501.9520, L100.0100 #### [facility] [address] [place], [address] RDW SD 39.3 fl Normal 35.1-43.9 [facility] Comment on above: Performed By: #### L 501.9520, L100.0100 #### [facility] [address] [place], [address] WBC (Bld) [#/Vol] 8.1 10*3/uL Normal 4.4-11.0 [facility] Comment on above: Performed By: #### L 501.9520, L100.0100 #### [facility] [address] [place], [address] Chest PA and Lateralon 12-26 Chest PA and Lateral [facility] Imaging Services [address] [place] [address] Chest PA and Lateral MR#: [id number] Acct: [id number] Name: BALJIT GERMAN Rep #: [id number] : 1970 F 54 From: Deangelo jimenez MD PCP: Dr. Shahzad Reynolds MD Status: [facility] ER Study: Chest PA and Lateral Date of Exam: 12/26/24 Exam# [id number] Ordering Dr: Gabriel Stoll DO PROCEDURE: CHEST [...] Lateral IMPRESSION: NO ACUTE FINDINGS. Reading Location: [place] [address] CC: Dr. Gabriel Stoll DO; Dr. Shahzad Reynolds MD Superintendent Car Construction: Signed Normal [facility] D-Dimer Quantitative (DVT/PE )on 12-26-2024 D-DIMER QUANT 0.27 FEU/ug/m Normal 0.27-0.49 [facility] Comment on above: Result Comment: NORM AL D-Dimer level (<0.50) indicates no DVT or PE. Performed By: #### L 501.9520, L100.0100 #### [facility] [address] [facility] [place], [address] Emergency Department Summary on 12-26-2024 Emergency Department Summary [facility] Medical Records Department [address] [place] [address] Emergency Department Summary 12/26/24 MR#: [id number] Acct: [id number] Name: BALJIT GERMAN Rep #: [id number] : 1970 54 From: Gabriel Stoll DO PCP: Dr. Shahzad Reynolds MD Status:DEP ER Location: ED HPI [...] intact, sensation intact Psych: Cooperative, intermittently tearful [facility] Medical History Fatigue Constipation Bloating Bilateral lower [...] 14:16 juni (more content not included)... Normal [facility] L501.4021on 12-26-2024 Trop T High Sen 6 ng/L Normal <=14 [facility] Comment on above: Performed By: #### L 501.2837, L100.0100 #### [facility] [address] [place], [address] Troponin T HS 2 HRon 025 Trop T High Sen Normal <=14 [facility] Comment on above: Result Comment: NISHI ENT DISCHARGED Performed By: #### L 501.9520, L3300.1500, L501.9985, L3100.5310, L801.2600, L3300.1750, L500.4050, L506.0400, L3100.5055, L509.6000 #### [facility] [address] [place], [address] Urine Drug Screen (VISTA)on 12-26-2024 AMPHETAMINES Positive Normal <1000 ng/mL [facility] Comment on above: Result Comment: If c onfirmation testing is needed, a separate order will be required to send out testing to the reference laboratory. Performed By: #### L 501.9520, L100.0100 #### [facility] [address] [place], [address] BARBITIURATES Negative Normal < 200 ng/mL [facility] Comment on above: Performed By: #### L 501.9520, L100.0100 #### [facility] [address] [place], [address] BENZODIAZIPINE Negative Normal < 200 ng/mL [facility] Comment on above: Performed By: #### L 501.9520, L100.0100 #### [facility] [address] [place], [address] BUP Ur Drug Scr Negative Normal < 200 ng/mL [facility] Comment on above: Performed By: #### L 501.9520, L100.0100 #### [facility] [address] [place], [address] COCAINE Negative Normal < 300 ng/mL [facility] Comment on above: Performed By: #### L 501.9520, L100.0100 #### [facility] [address] [place], [place], [address] Fentanyl Negative Normal [facility] Comment on above: Performed By: #### L 501.9520, L100.0100 #### [facility] [address] [place], [address] METHADONE Negative Normal < 300 ng/mL [facility] Comment on above: Performed By: #### L 501.9520, L100.0100 #### [facility] [address] [place], [address] OPIATES Negative Normal < 300 ng/mL [facility] Comment on above: Performed By: #### L 501.9520, L100.0100 #### [facility] [address] [place], [address] OXYCODONE Negative Normal < 100 ng/mL [facility] Comment on above: Performed By: #### L 501.9520, L100.0100 #### [facility] [address] [place], [address] PCP Negative Normal < 25 ng/mL [facility] Comment on above: Performed By: #### L 501.9520, L100.0100 #### [facility] [address] [place], [address] THC Positive Normal < 50 ng/mL [facility] Comment on above: Result Comment: If c onfirmation testing is needed, a separate order will be required to send out testing to the reference laboratory. Performed By: #### L 501.9520, L100.0100 #### [facility] [address] [place], [place], [address] Duc 12-25-2024 MARILUZ Telephone (CHRYSTAL) BALJIT GERMAN ([id number]) 1970 F Date Time Provider Department 12/25/24 [...] POTASSIUM-99 ORAL Take by mouth. - Vitamin M39-Dscaf Acid 0.5-1 mg tab Take by mouth. [...] Noted Resolved Routine general medical examination at [facility]*05/31/2008 08/03/2015 OBESITY NOS [E66.9] 05/31/2008 08/03/2015 [...] Status:Closed by ALVARADO DURAN on 12/25/24 Normal [facility] BACTERIAL VAGINOSIS NAATon 0 12-24-2024 Lactobacillus crispatus+gasseri+je nsenii + Gardnerella vaginalis + Atopobium vaginae rRNA JOSE LUIS+probe Ql (Vag fld) Not detected Normal Not detected [facility] Comment on above: Order Comment: Speci men Type: SWAB Ordering Facility: [facility] Address: [address] [place] [address] Performed By: #### C VTV, BVAMP #### [facility] CLIA [id number] [address] [place] [address] [place] Bacteria Ur Culton 5 Bacteria identified Cx Nom (U) CULTURE, URINE: Normal urogenital rashi: ORGANISM ID: 1 >=100,000 CFU/ml Corynebacterium amycolatum No further workup Normal [facility] Comment on above: Performed By: #### 6 30-4 #### [facility] CLIA [id number] [address] [place] [address] [place] MARY/TRICHOMONAS NAATon 0 12-24-2024 C. glabrata RNA JOSE LUIS+probe Ql (Vag fld) Not detected Normal Not detected [facility] Comment on above: Order Comment: Speci men Type: SWAB Ordering Facility: [facility] Address: [address] [place] [address] Performed By: #### C VTV, BVAMP #### [facility] CLIA [id number] [address] [place] [address] [place] Mary sp DNA JOSE LUIS+probe Ql (Vag fld) Detected Abnormal Not detected [facility] Comment on above: Order Comment: Speci men Type: SWAB Ordering Facility: [facility] Address: [address] [place] [address] Result Comment: The Mary species group target includes C. albicans, C. tropicalis, C. parapsilosis, and C. dubliniensis. Performed By: #### C VTV, BVAMP #### [facility] CLIA [id number] [address] [place] [address] [place] T. vaginalis DNA JOSE LUIS+probe Ql (Unsp spec) Not detected Normal Not detected [facility] Comment on above: Order Comment: Speci men Type: SWAB Ordering Facility: [facility] Address: [address] [place] [address] Performed By: #### C VTV, BVAMP #### [facility] CLIA [id number] [address] [place] [address] [place] CNOVon 12-24-2024 CNOV Office Visit (WOUCA) BALJIT GERMAN ([id number]) 1970 F Date Time Provider Department 12/24/24 11:30 AM ALVARADO DURAN WOULICES During your visit today, we recorded the following information about you: Temperature Pulse Respiration Blood pressure 98.5 degrees 78/minute 16/minute 118/72 Weight 124.1 kg Alvarado Duran APRN.LEAD SOFTWARE TESTER 12/24/2024 12:18 PM Signed [facility] Subjective Baljit Medina Maxi is a 54 year old female. Patient presents with: UTI pinworms UTI Associated symptoms include urgency. Pertinent negatives include no frequency and no hematuria. Parasitic Infection Concerns: - Reports seeing itty bitty white things coming out of her skin last night. - Describes appearance of eggs under her skin, resembling writing. - Denies seeing a service delivery management consultant. Urinary Urgency: - Reports urinary urgency and [...] LIGATION 1993 SALPINGO-OOPHORECTOMY COMPL/PRTL UNI/BI SPX 2011 Bdpqhzlq-wptrtotcciwk-c one separate from hysterectomy TOTAL ABDOMINAL HYSTERECT [...] (Patient not taking: Reported on 12/24/2024) Vitamin J29-Bsdzk Acid 0.5-1 mg tab Take by mouth. [...] Skin under (more content not included)... Normal [facility] UA DIP, URINE (POC)on 2024 BILIRUBIN UA (POCT) Negative Negative [facility] CLARITY UA (POCT) Clear [facility] COLOR UA (POCT) Yellow [facility] GLUCOSE UA (POCT) Negative Negative mg/dL [facility] Hemoglobin Ql (U) Negative Negative [facility] KETONE UA (POCT) Trace Negative mg/dL [facility] LEUKOCYTES UA (POCT) Negative Negative [facility] NITRITE UA (POCT) Negative Negative [facility] PH UA (POCT) 5.5 4.5 - 8.0 [facility] Protein Ql (U) Negative Negative mg/dL [facility] SPECIFIC GRAVITY UA (POCT) 1.025 1.005 - 1.030 [facility] UROBILINOGEN UA (POCT) 0.2 Normal E.U./dL [facility] Location:[facility], [address] [facility], [place], [address] [facility] Internal Medicine Office Vis iton 12-23-2024 Internal Medicine Office Visit [facility] [address] [place], [place] [address] OFFICE VISIT Date of Service: 12/23/24 MR#: [id number] Acct: [id number] Name: MAXIBALJIT Adam Rep #: [id number] : 1970 Provider: TARYN Rodriguez Age/Sex: 54/F [place] [facility] [place] Status: Signed Intake Vital [...] weeks... Chief Complaint: Wheezing for 2 weeks Livestock Handler Required: No Accompanied by: Self Is patient [...] has been taking amoxicillin for tooth infection. COUNTS INCLUDE 234 BEDS AT [facility] Medical History Fatigue Constipation Bloating Bilateral [...] tubal ligation Family History Sister , of ID CAD (coronary artery disease) Myocardial infarction Sudden cardiac Father Pancreatic cancer Social History Smoking Status: Current every day smoker tobacco type: cigarettes Tobacco: How many years used: 30 alcohol intake: current alcohol intake frequency: holidays/special occasions only substance use type: marijuana what type of physical activity do you participate in: none HP (more content not included)... Normal [facility] 12-02-2024 [facility] Office Visit (WOUCA) BALJIT GERMAN ([id number]) 1970 F Date Time Provider Department 12/02/24 5:15 PM FERNANDO GÓMEZ During your visit today, we recorded the following information about you: Temperature Pulse Respiration Blood pressure 98.1 degrees 94/minute 20/minute 119/83 Fernando Gómez APRN.LEAD SOFTWARE TESTER 12/02/2024 5:30 PM Signed Subjective HPI Nontoxic. 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 Rehab at 180 [...] LIGATION 1994 SALPINGO-OOPHORECTOMY COMPL/PRTL UNI/BI SPX 2012 Unyqvmog-umcthprcbzun-f one separate from hysterectomy TOTAL ABDOMINAL HYSTERECT [...] capsule by mouth every 12 hours. Vitamin O91-Cbjiu Acid 0.5-1 mg tab Take by mouth. [...] Pulse 94 (more content not included)... Normal [facility] CBC W/Diff, Automatedon SMEAR COMMENT COMMENT Normal [facility] Comment on above: Result Comment: LYMP HOCYTOSIS. Performed By: #### L 501.9520, L100.0100 #### [facility] Laboratory [address] [place], [place], [address] Internal Medicine Office Vis iton 11-23-2024 Internal Medicine Office Visit [facility] [address] [place], [place] [address] OFFICE VISIT Date of Service: 11/23/24 MR#: [id number] Acct: [id number] Name: BALJIT GERMAN Rep #: [id number] : 1970 Provider: Dr. Shahzad nur MD Age/Sex: 54/F [place] [facility] [facility] [place] Status: Signed Intake Vital Signs 11/07/24 14:13 [...] ALL OVER Chief Complaint: swelling all over Livestock Handler Required: No Accompanied by: Self Is patient [...] mg PO QDAY 11/07/24 11/23/24 H istory PFSH Medical History (Updated 11/23/24 @ 12:[address] Shahzad Reynolds MD) Fatigue Constipation Bloating Bilateral lower [...] tubal ligation Family History Sister , of ID CAD (coronary artery disease) Myocardial infarction Sudden [...] few days. (more content not included)... Normal [facility] Thyroid Stim Hormone (TSH)on 11-23-2024 TSH 6.680 uIU/mL High 0.300-4.200 [facility] Comment on above: Performed By: #### L 501.9520, L100.0100 #### [facility] [address] [facility] [place], [address] L/S Spine Min 4 Viewson 10-17 L/S Spine Min 4 Views [facility] Imaging Services [address] [place] [address] L/S Spine Min 4 Views MR#: [id number] Acct: [id number] Name: BALJIT GERMAN Rep #: [id number] : 1970 F 54 From: Vinay trevizo MD PCP: Dr. Shahzad Reynolds MD Status: DEP AMB Study: L/S Spine Min 4 Views Date of Exam: 11/07/24 Exam# [id number] Ordering Dr: Alexa Sherwood PROCEDURE: L/S SPINE [...] Mild levoscoliosis apex at L3. Reading Location: [place] [address] CC: TARYN Johnson; Dr. Shahzad Reynolds MD Superintendent Car Construction: Signed Normal [facility] Orthopedic Visit Reporton Orthopedic Visit Report [facility] [address] [place] [address] OFFICE VISIT Date of Service: 11/07/24 MR#: [id number] Acct: [id number] Name: BALJIT GERMAN Rep #: [id number] : 1970 Provider: TARYN Johnson Age/Sex: 54/F [place] [facility] [place] Status: Signed with Addenda [...] 11/24/24 1528 Date Alexa Sherwood cc: Dr. Shahzad Reynolds MD * Signed Intake Vital Signs [...] tubal ligation Family History Sister , of ID CAD (coronary artery disease) Myocardial infarction Sudden [...] service provided and the decisions made by , TARYN Johnson 11/07/24 1403. Part of today???s visit was documented by Chloe Bryant RN, acting as scribe. BALJIT GERMAN is a 54 (more content not included)... Normal [facility] Comprehensive Metabolic Prof ilon 11-04-2024 Albumin [Mass/Vol] 3.8 g/dL Normal 3.5-5.0 [facility] Comment on above: Performed By: #### L 501.9520, L3300.1500, L501.9985, L3100.5310, L801.2600, L3300.1750, L500.4050, L506.0400, L3100.5055, L509.6000 #### [facility] [address] [place], [address] Albumin/Globulin [Mass ratio] 1.3 {ratio} Normal 0.9-2.4 [facility] Comment on above: Performed By: #### L 501.9520, L3300.1500, L501.9985, L3100.5310, L801.2600, L3300.1750, L500.4050, L506.0400, L3100.5055, L509.6000 #### [facility] [address] [place], [address] ALK PHOS 113 U/L High 35-104 [facility] Comment on above: Performed By: #### L 501.9520, L3300.1500, L501.9985, L3100.5310, L801.2600, L3300.1750, L500.4050, L506.0400, L3100.5055, L509.6000 #### [facility] [address] [place], [address] ALT [Catalytic activity/Vol] 10 U/L Normal <=34 [facility] Comment on above: Performed By: #### L 501.9520, L3300.1500, L501.9985, L3100.5310, L801.2600, L3300.1750, L500.4050, L506.0400, L3100.5055, L509.6000 #### [facility] [address] [place], [address] AST [Catalytic activity/Vol] 17 U/L Normal <=31 [facility] Comment on above: Performed By: #### L 501.9520, L3300.1500, L501.9985, L3100.5310, L801.2600, L3300.1750, L500.4050, L506.0400, L3100.5055, L509.6000 #### [facility] [address] [place], [address] BUN/CRE 11.2 RATIO Normal 10-20 [facility] Comment on above: Performed By: #### L 501.9520, L3300.1500, L501.9985, L3100.5310, L801.2600, L3300.1750, L500.4050, L506.0400, L3100.5055, L509.6000 #### [facility] [address] [place], [address] Calcium [Mass/Vol] 9.0 mg/dL Normal 7.6-11.0 [facility] Comment on above: Performed By: #### L 501.9520, L3300.1500, L501.9985, L3100.5310, L801.2600, L3300.1750, L500.4050, L506.0400, L3100.5055, L509.6000 #### [facility] [address] [place], [address] Chloride [Moles/Vol] 100 mmol/L Normal 98-108 [facility] Comment on above: Performed By: #### L 501.9520, L3300.1500, L501.9985, L3100.5310, L801.2600, L3300.1750, L500.4050, L506.0400, L3100.5055, L509.6000 #### [facility] [address] [place], [address] CO2 [Moles/Vol] 26.4 mmol/L Normal 21.0-32.0 [facility] Comment on above: Performed By: #### L 501.9520, L3300.1500, L501.9985, L3100.5310, L801.2600, L3300.1750, L500.4050, L506.0400, L3100.5055, L509.6000 #### [facility] [address] [place], [place], [address] Creatinine [Mass/Vol] 0.72 mg/dL Normal 0.70-1.20 [facility] Comment on above: Performed By: #### L 501.9520, L3300.1500, L501.9985, L3100.5310, L801.2600, L3300.1750, L500.4050, L506.0400, L3100.5055, L509.6000 #### [facility] [address] [place], [place], [address] GAP 12 Normal 5-15 [facility] Comment on above: Performed By: #### L 501.9520, L3300.1500, L501.9985, L3100.5310, L801.2600, L3300.1750, L500.4050, L506.0400, L3100.5055, L509.6000 #### [facility] [address] [facility] [place], [address] GFR/1.73 sq M.predicted among non-blacks MDRD (S/P/Bld) [Vol rate/Area] 100 mL/min/{1.73_m2} Normal >60 [facility] Comment on above: Result Comment: mL/m in/1.73m2 CKD-EPI Creatinine Equation (2020) Performed By: #### L 501.9520, L3300.1500, L501.9985, L3100.5310, L801.2600, L3300.1750, L500.4050, L506.0400, L3100.5055, L509.6000 #### [facility] [address] [facility] [place], [address] Globulin (S) [Mass/Vol] 3.0 g/dL Normal 2.2-4.2 [facility] Comment on above: Performed By: #### L 501.9520, L3300.1500, L501.9985, L3100.5310, L801.2600, L3300.1750, L500.4050, L506.0400, L3100.5055, L509.6000 #### [facility] [address] [place], [address] Glucose [Mass/Vol] 145 mg/dL High 70-99 [facility] Comment on above: Performed By: #### L 501.9520, L3300.1500, L501.9985, L3100.5310, L801.2600, L3300.1750, L500.4050, L506.0400, L3100.5055, L509.6000 #### [facility] [address] [facility] [place], [address] Potassium [Moles/Vol] 3.7 mmol/L Normal 3.3-5.1 [facility] Comment on above: Performed By: #### L 501.9520, L3300.1500, L501.9985, L3100.5310, L801.2600, L3300.1750, L500.4050, L506.0400, L3100.5055, L509.6000 #### [facility] [address] [facility] [place], [address] Sodium [Moles/Vol] 138 mmol/L Normal 133-145 [facility] Comment on above: Performed By: #### L 501.9520, L3300.1500, L501.9985, L3100.5310, L801.2600, L3300.1750, L500.4050, L506.0400, L3100.5055, L509.6000 #### [facility] [address] [facility] [place], [address] T BILI < 0.15 Normal 0.00-1.30 [facility] Comment on above: Performed By: #### L 501.9520, L3300.1500, L501.9985, L3100.5310, L801.2600, L3300.1750, L500.4050, L506.0400, L3100.5055, L509.6000 #### [facility] [address] [place], [address] T PROT 6.9 g/dL Normal 5.9-8.4 [facility] Comment on above: Performed By: #### L 501.9520, L3300.1500, L501.9985, L3100.5310, L801.2600, L3300.1750, L500.4050, L506.0400, L3100.5055, L509.6000 #### [facility] [address] [place], [address] Urea nitrogen [Mass/Vol] 8 mg/dL Normal 4-19 [facility] Comment on above: Performed By: #### L 501.9520, L3300.1500, L501.9985, L3100.5310, L801.2600, L3300.1750, L500.4050, L506.0400, L3100.5055, L509.6000 #### [facility] [address] [place], [address] D-Dimer Quantitative (DVT/PE )on 11-04-2024 D-DIMER QUANT 0.29 FEU/ug/m Normal 0.27-0.49 [facility] Comment on above: Result Comment: NORM AL D-Dimer level (<0.50) indicates no DVT or PE. Performed By: #### L 501.9520, L3300.1500, L501.9985, L3100.5310, L801.2600, L3300.1750, L500.4050, L506.0400, L3100.5055, L509.6000 #### [facility] [address] [place], [address] Internal Medicine Office Vis iton 11-04-2024 Internal Medicine Office Visit [facility] [address] [place] [address] [place] [address] OFFICE VISIT Date of Service: 11/04/24 MR#: [id number] Acct: [id number] Name: BALJIT GERMAN Rep #: [id number] : 1970 Provider: Dr. Shahzad nur MD Age/Sex: 54/F [place] [facility] [place] [facility] [place] Status: Signed Intake Vital Signs 09/28/24 14:50 [...] History (Updated 11/04/24 @ 11:[address] Shahzad Reynolds MD) Bilateral lower extremity edema Dyspnea [...] tubal ligation Family History Sister , of ID CAD (coronary artery disease) Myocardial infarction Sudden [...] which ma (more content not included)... Normal [facility] L503.7505on 11-04-2024 proBNP < 36 Normal <=900 [facility] Comment on above: Result Comment: Hear t Failure Unlikely: < 300 pg/mL Heart Failure Likely < 50 Years: > 450 pg/mL 50-75 Years: > 900 pg/mL >75 Years: > 1800 pg/mL Performed By: #### L 501.9520, L3300.1500, L501.9985, L3100.5310, L801.2600, L3300.1750, L500.4050, L506.0400, L3100.5055, L509.6000 #### [facility] [address] [place], [address] Thyroid Stim Hormone (TSH)on 11-04-2024 TSH 6.890 uIU/mL High 0.300-4.200 [facility] Comment on above: Performed By: #### L 501.9520, L3300.1500, L501.9985, L3100.5310, L801.2600, L3300.1750, L500.4050, L506.0400, L3100.5055, L509.6000 #### [facility] [address] [place], [address] Inital Evaluation (1) - PTon 10-11-2024 Inital Evaluation (1) - PT [facility] Physical Therapy [address] [place] [address] / REHABILITATION SERVICES INITIAL EVALUATION MR#: [id number] Acct: [id number] Name: BALJIT GERMAN Rep #: [id number] : 1970 54 From: Gato Mehta DPT Referring Dr.: Dr. Shahzad Reynolds MD Status: REG RCR Insurance: [facility] [employer] INSURANCE Patient's Visit Information Visit Information Visit Information: BALJIT GERMAN is a 54 year old F referred to Physical Therapy by Dr. Shahzad Reynolds MD with a diagnosis of Lumbar spondylolisthesis. Date of Evaluation: 10/11/24 Physical Therapist: OLGA ZhuT Visit Plan Frequency: 2x /Week Duration: 4 [...] to be FAXED BACK to us at [phone] for Medicare purposes. For Medicare only, by signing this I certify the plan of care. Please let me know if there are questions or concerns regarding this plan of care. Physician Signature: Date: 10/11/24 1535 CC: Dr. Shahzad Reynolds MD CLS Signed Normal [facility] SCRN MAMM (CAD)W/NATE trevizo 10-11-2024 SCRN MAMM (CAD)W/NATE [facility] Imaging Services [address] [place] [address] SCRN MAMM (CAD)W/NATE BILAT MR#: [id number] Acct: [id number] Name: BALJIT GERMAN Rep #: [id number] : 1970 F 54 From: Kiesha Sanchez i, MD PCP: Dr. Shahzad Reynolds MD Status: REG CLI Study: SCRN MAMM (CAD)W/NATE BILAT Date of Exam: 09/16 12/09 Exam# [id number] Ordering Dr: Danial Cox EXAM: SCRN MAMM (CAD)W/NATE BILAT DATE: 10/11/2024 [...] be mailed to the patient. Reading Location: [id number] CC: Dr. Shahzad Reynolds MD; TARYN Rodriguez Superintendent Car Construction: Signed Normal [facility] Internal Medicine Office Vis iton 09-28-2024 Internal Medicine Office Visit [facility] [address] [place] [address] [place] [address] OFFICE VISIT Date of Service: 09/28/24 MR#: [id number] Acct: [id number] Name: BALJIT GERMAN Rep #: [id number] : 1970 Provider: Dr. Shahzad nur MD Age/Sex: 54/F [place] [facility] [place] Status: Signed Intake Vital [...] 100 mg PO BID 09/28/24 09/28/24 Hi story PFSH Medical History (Updated 09/28/24 @ 16:[address] Shahzad Reynolds MD) Helicobacter pylori gastritis Dark stools [...] tubal ligation Family History Sister , of ID CAD (coronary artery disease) Myocardial infarction Sudden [...] 6.2. Ot (more content not included)... Normal [facility] Ova and Parasites 8623on OP OVA AND PARASITES EX AM, ROUTINE These results were obtained using wet preparation(s) and trichrome stained smear. This test does not include testing for Crytosporidium parvum, Cyclospora, or Microsporidia. One negative specimen does not rule out the possibility of a parasitic infection. TESTING PERFORMED AT [facility]. ORIGINAL REPORT ON FILE IN LAB CONTAINS ADDITIONAL TEST SITE INFORMATION. Ova/Parasite Exam NO OVA, CYSTS, OR PARASITES FOUND. Normal [facility] Comment on above: Performed By: #### L 501.9520, L100.0100 #### [facility] [address] [place], [place], [address] H. PYLORI STOOL AGon 025 H PYLORI STL AG Positive Abnormal Negative [facility] Comment on above: Result Comment: Perf ormed at: [address] [id number] [employer] Supervisor: Artie Rosas PhD, Phone: [phone] Performed By: #### L 501.9520, L100.0100 #### [facility] [address] [place], [place], [address] Internal Medicine Office Vis itosanthosh 08-18-2024 Internal Medicine Office Visit [facility] [address] [place] [address] [address] [place], [place] [address] OFFICE VISIT Date of Service: 08/18/24 MR#: [id number] Acct: [id number] Name: BALJIT GERMAN Rep #: [id number] : 1970 Provider: TARYN Rodriguez Age/Sex: 54/F [place] [facility] [place] Status: Signed Intake Vital [...] Extra Strength) Q6H PRN pain #60 tabs ashwagandha extract 120 mg capsule 120 mg [...] color, and foul smell beneath ABD folds. COUNTS INCLUDE 234 BEDS AT THE [facility] Medical History Viral syndrome Nausea Malaise [...] tubal ligation Family History Sister , of ID CAD (coronary artery disease) Myocardial infarction Sudden [...] was comp (more content not included)... Normal [facility] Internal Medicine Office Vis iton 07-22-2024 Internal Medicine Office Visit [facility] [address] [place], [place] [address] OFFICE VISIT Date of Service: 07/22/24 MR#: [id number] Acct: [id number] Name: BALJIT GERMAN Rep #: [id number] : 1970 Provider: Dr. Shahzad nur MD Age/Sex: 54/F [place] [facility] [place] Status: Signed Intake Vital [...] MED REACTION/RASH Chief Complaint: rash. 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 Accompanied by: Self Is patient [...] % topical patch See Rx Instructions .Route 07/22/24 Rx .COMPLEX #60 patches metformin 500 mg tablet,extended 500 mg PO BID #120 tabs 06/27/24 0 07/22/24 Rx release 24 hr pregabalin 75 mg capsule 75 mg PO BID 06/27/24 07/22/24 His tory conjugated estrogens 0.9 mg tablet 0.9 mg PO DAILY #90 tabs Rx levothyroxine 112 mcg tablet See Rx Instructions .Route Rx .COMPLEX #90 tabs Have you fallen in the past year?: No Nurse's Note: rash john legs and arms and stomach and possibly face and feeling nauseated and just feeling yucky dizzy and lightheaded COUNTS INCLUDE 234 BEDS AT THE [facility] Medical History (Updated 07/22/24 @ 16:[address] Shahzad Reynolds MD) Viral syndrome Nausea Malaise and [...] tubal ligation Family History Sister , of ID CAD (coronary artery disease) Myocardial infarction Sudden [...] appetite Eye (more content not included)... Normal [facility] L499.0042on 07-22-2024 Trop T High Sen < 6 Normal <=14 [facility] Comment on above: Performed By: #### L 501.9520, L100.0100 #### [facility] [address] [place], [place], [address] L499.0043on 07-22-2024 Trop T High Sen Normal <=14 [facility] Comment on above: Result Comment: Canc elled via OM: Order cancelled - Patient discharged Performed By: #### L 501.9520, L3300.1500, L501.9985, L3100.5310, L801.2600, L3300.1750, L500.4050, L506.0400, L3100.5055, L509.6000 #### [facility] [address] [place], [address] Liver Profileon 07-22-2024 Albumin [Mass/Vol] 4.1 g/dL Normal 3.5-5.0 [facility] Comment on above: Performed By: #### L 501.9520, L3300.1500, L501.9985, L3100.5310, L801.2600, L3300.1750, L500.4050, L506.0400, L3100.5055, L509.6000 #### [facility] [address] [place], [place], [address] ALK PHOS 99 U/L Normal 35-104 [facility] Comment on above: Performed By: #### L 501.9520, L3300.1500, L501.9985, L3100.5310, L801.2600, L3300.1750, L500.4050, L506.0400, L3100.5055, L509.6000 #### [facility] [address] [place], [address] ALT [Catalytic activity/Vol] 15 U/L Normal <=34 [facility] Comment on above: Performed By: #### L 501.9520, L3300.1500, L501.9985, L3100.5310, L801.2600, L3300.1750, L500.4050, L506.0400, L3100.5055, L509.6000 #### [facility] [address] [place], [address] AST [Catalytic activity/Vol] 14 U/L Normal <=31 [facility] Comment on above: Performed By: #### L 501.9520, L3300.1500, L501.9985, L3100.5310, L801.2600, L3300.1750, L500.4050, L506.0400, L3100.5055, L509.6000 #### [facility] [address] [place], [place], [address] Bilirubin [Mass/Vol] 0.21 mg/dL Normal 0.00-1.30 [facility] Comment on above: Performed By: #### L 501.9520, L3300.1500, L501.9985, L3100.5310, L801.2600, L3300.1750, L500.4050, L506.0400, L3100.5055, L509.6000 #### [facility] [address] [place], [address] Bilirubin.direct [Mass/Vol] 0.11 mg/dL Normal 0.00-0.30 [facility] Comment on above: Performed By: #### L 501.9520, L3300.1500, L501.9985, L3100.5310, L801.2600, L3300.1750, L500.4050, L506.0400, L3100.5055, L509.6000 #### [facility] [address] [place], [address] Globulin (S) [Mass/Vol] 3.0 g/dL Normal 2.2-4.2 [facility] Comment on above: Performed By: #### L 501.9520, L3300.1500, L501.9985, L3100.5310, L801.2600, L3300.1750, L500.4050, L506.0400, L3100.5055, L509.6000 #### [facility] [address] [place], [address] T PROT 7.1 g/dL Normal 5.9-8.4 [facility] Comment on above: Performed By: #### L 501.9520, L3300.1500, L501.9985, L3100.5310, L801.2600, L3300.1750, L500.4050, L506.0400, L3100.5055, L509.6000 #### [facility] [address] [place], [address] T4 Free Directon 07-22-2024 T4 FREE DIRECT 1.40 ng/dL Normal 0.76-1.46 [facility] Comment on above: Performed By: #### L 501.9520, L3300.1500, L501.9985, L3100.5310, L801.2600, L3300.1750, L500.4050, L506.0400, L3100.5055, L509.6000 #### [facility] [address] [place], [address] Thyroid Stim Hormone (TSH)on 07-22-2024 TSH 0.598 uIU/mL Normal 0.300-4.200 [facility] Comment on above: Performed By: #### L 501.9520, L3300.1500, L501.9985, L3100.5310, L801.2600, L3300.1750, L500.4050, L506.0400, L3100.5055, L509.6000 #### [facility] [address] [place], [address] Basic Metabolic Profile (BMP )on 07-21-2024 BUN/CRE 9.9 RATIO Low 10-20 [facility] Comment on above: Performed By: #### L 501.9520, L3300.1500, L501.9985, L3100.5310, L801.2600, L3300.1750, L500.4050, L506.0400, L3100.5055, L509.6000 #### [facility] [address] [place], [address] Calcium [Mass/Vol] 9.6 mg/dL Normal 7.6-11.0 [facility] Comment on above: Performed By: #### L 501.9520, L3300.1500, L501.9985, L3100.5310, L801.2600, L3300.1750, L500.4050, L506.0400, L3100.5055, L509.6000 #### [facility] [address] [place], [address] Chloride [Moles/Vol] 99 mmol/L Normal 98-108 [facility] Comment on above: Performed By: #### L 501.9520, L3300.1500, L501.9985, L3100.5310, L801.2600, L3300.1750, L500.4050, L506.0400, L3100.5055, L509.6000 #### [facility] [address] [place], [place], [address] (110) CO2 [Moles/Vol] 26.9 mmol/L Normal 21.0-32.0 [facility] Comment on above: Performed By: #### L 501.9520, L3300.1500, L501.9985, L3100.5310, L801.2600, L3300.1750, L500.4050, L506.0400, L3100.5055, L509.6000 #### [facility] [address] [place], [place], [address] Creatinine [Mass/Vol] 0.88 mg/dL Normal 0.70-1.20 [facility] Comment on above: Performed By: #### L 501.9520, L3300.1500, L501.9985, L3100.5310, L801.2600, L3300.1750, L500.4050, L506.0400, L3100.5055, L509.6000 #### [facility] [address] [place], [place], [address] ECRCL 124.27 ml/min Normal 50-250 [facility] Comment on above: Performed By: #### L 501.9520, L3300.1500, L501.9985, L3100.5310, L801.2600, L3300.1750, L500.4050, L506.0400, L3100.5055, L509.6000 #### [facility] [address] [place], [address] GAP 13 Normal 5-15 [facility] Comment on above: Performed By: #### L 501.9520, L3300.1500, L501.9985, L3100.5310, L801.2600, L3300.1750, L500.4050, L506.0400, L3100.5055, L509.6000 #### [facility] [address] [place], [address] GFR/1.73 sq M.predicted among non-blacks MDRD (S/P/Bld) [Vol rate/Area] 80 mL/min/{1.73_m2} Normal >60 [facility] Comment on above: Result Comment: mL/m in/1.73m2 CKD-EPI Creatinine Equation (2020) Performed By: #### L 501.9520, L3300.1500, L501.9985, L3100.5310, L801.2600, L3300.1750, L500.4050, L506.0400, L3100.5055, L509.6000 #### [facility] [address] [place], [address] Glucose [Mass/Vol] 131 mg/dL High 70-99 [facility] Comment on above: Performed By: #### L 501.9520, L3300.1500, L501.9985, L3100.5310, L801.2600, L3300.1750, L500.4050, L506.0400, L3100.5055, L509.6000 #### [facility] [address] [place], [address] Potassium [Moles/Vol] 4.0 mmol/L Normal 3.3-5.1 [facility] Comment on above: Performed By: #### L 501.9520, L3300.1500, L501.9985, L3100.5310, L801.2600, L3300.1750, L500.4050, L506.0400, L3100.5055, L509.6000 #### [facility] [address] [place], [address] Sodium [Moles/Vol] 139 mmol/L Normal 133-145 [facility] Comment on above: Performed By: #### L 501.9520, L3300.1500, L501.9985, L3100.5310, L801.2600, L3300.1750, L500.4050, L506.0400, L3100.5055, L509.6000 #### [facility] [address] [place], [address] Urea nitrogen [Mass/Vol] 9 mg/dL Normal 4-19 [facility] Comment on above: Performed By: #### L 501.9520, L3300.1500, L501.9985, L3100.5310, L801.2600, L3300.1750, L500.4050, L506.0400, L3100.5055, L509.6000 #### [facility] [address] [facility] [place], [address] CBC W/Diff, Automatedon 0 -2024 Absolute Lymph 4.51 X10 3/uL Normal 0.83-4.51 [facility] Comment on above: Performed By: #### L 501.9520, L3300.1500, L501.9985, L3100.5310, L801.2600, L3300.1750, L500.4050, L506.0400, L3100.5055, L509.6000 #### [facility] [address] [place], [address] Absolute Neut 4.3 X10 3/uL Normal 2.0-7.7 [facility] Comment on above: Performed By: #### L 501.9520, L3300.1500, L501.9985, L3100.5310, L801.2600, L3300.1750, L500.4050, L506.0400, L3100.5055, L509.6000 #### [facility] [address] [place], [address] Basophils/100 WBC (Bld) 0.9 % Normal 0-1 [facility] Comment on above: Performed By: #### L 501.9520, L3300.1500, L501.9985, L3100.5310, L801.2600, L3300.1750, L500.4050, L506.0400, L3100.5055, L509.6000 #### [facility] [address] [place], [address] Eosinophils/100 WBC (Bld) 1.3 % Normal 0-5 [facility] Comment on above: Performed By: #### L 501.9520, L3300.1500, L501.9985, L3100.5310, L801.2600, L3300.1750, L500.4050, L506.0400, L3100.5055, L509.6000 #### [facility] [address] [place], [address] (721) Erythrocyte distribution width (RBC) [Ratio] 12.9 % Normal 11.6-14.6 [facility] Comment on above: Performed By: #### L 501.9520, L3300.1500, L501.9985, L3100.5310, L801.2600, L3300.1750, L500.4050, L506.0400, L3100.5055, L509.6000 #### [facility] [address] [place], [address] (243) Hematocrit (Bld) [Volume fraction] 41.2 % Normal 37-47 [facility] Comment on above: Performed By: #### L 501.9520, L3300.1500, L501.9985, L3100.5310, L801.2600, L3300.1750, L500.4050, L506.0400, L3100.5055, L509.6000 #### [facility] [address] [place], [place], [phone] (599) Hemoglobin (Bld) [Mass/Vol] 13.3 g/dL Normal 12.0-15.0 [facility] Comment on above: Performed By: #### L 501.9520, L3300.1500, L501.9985, L3100.5310, L801.2600, L3300.1750, L500.4050, L506.0400, L3100.5055, L509.6000 #### [facility] [address] [place], [address] IG% 0.100 Normal 0.0-0.9 [facility] Comment on above: Result Comment: IG% - Immature Granulocytes (promyelocytes, myelocytes and metamyelocytes) > 1% indicates that a LEFT SHIFT is Present. Performed By: #### L 501.9520, L3300.1500, L501.9985, L3100.5310, L801.2600, L3300.1750, L500.4050, L506.0400, L3100.5055, L509.6000 #### [facility] [address] [facility] [address] [place], [address] Lymphocytes/100 WBC (Bld) 46.6 % High 19-41 [facility] Comment on above: Performed By: #### L 501.9520, L3300.1500, L501.9985, L3100.5310, L801.2600, L3300.1750, L500.4050, L506.0400, L3100.5055, L509.6000 #### [facility] [address] [address] [place], [address] MCH (RBC) [Entitic mass] 27.6 pg Normal 27.0-32.0 [facility] Comment on above: Performed By: #### L 501.9520, L3300.1500, L501.9985, L3100.5310, L801.2600, L3300.1750, L500.4050, L506.0400, L3100.5055, L509.6000 #### [facility] [address] [place], [address] MCHC (RBC) [Mass/Vol] 32.3 g/dL Normal 32-36 [facility] Comment on above: Performed By: #### L 501.9520, L3300.1500, L501.9985, L3100.5310, L801.2600, L3300.1750, L500.4050, L506.0400, L3100.5055, L509.6000 #### [facility] [address] [place], [address] MCV (RBC) [Entitic vol] 85.5 fL Normal 81-99 [facility] Comment on above: Performed By: #### L 501.9520, L3300.1500, L501.9985, L3100.5310, L801.2600, L3300.1750, L500.4050, L506.0400, L3100.5055, L509.6000 #### [facility] [address] [facility] [place], [address] Monocytes/100 WBC (Bld) 6.4 % Normal 0-10 [facility] Comment on above: Performed By: #### L 501.9520, L3300.1500, L501.9985, L3100.5310, L801.2600, L3300.1750, L500.4050, L506.0400, L3100.5055, L509.6000 #### [facility] [address] [facility] [address] [place], [address] Neutrophils/100 WBC (Bld) 44.7 % Low 47-70 [facility] Comment on above: Performed By: #### L 501.9520, L3300.1500, L501.9985, L3100.5310, L801.2600, L3300.1750, L500.4050, L506.0400, L3100.5055, L509.6000 #### [facility] [address] [facility] [place], [address] Nucleated RBC (Bld) [#/Vol] 0 10*3/uL Normal 0-5 [facility] Comment on above: Performed By: #### L 501.9520, L3300.1500, L501.9985, L3100.5310, L801.2600, L3300.1750, L500.4050, L506.0400, L3100.5055, L509.6000 #### [facility] [address] [place], [address] Platelet mean volume (Bld) [Entitic vol] 9.5 fL Normal 6.2-12.0 [facility] Comment on above: Performed By: #### L 501.9520, L3300.1500, L501.9985, L3100.5310, L801.2600, L3300.1750, L500.4050, L506.0400, L3100.5055, L509.6000 #### [facility] [address] [place], [address] (810) Platelets (Bld) [#/Vol] 374 10*3/uL Normal 150-450 [facility] Comment on above: Performed By: #### L 501.9520, L3300.1500, L501.9985, L3100.5310, L801.2600, L3300.1750, L500.4050, L506.0400, L3100.5055, L509.6000 #### [facility] [address] [facility] [place], [address] (090) RBC (Bld) [#/Vol] 4.82 10*6/uL Normal 4.2-5.4 [facility] Comment on above: Performed By: #### L 501.9520, L3300.1500, L501.9985, L3100.5310, L801.2600, L3300.1750, L500.4050, L506.0400, L3100.5055, L509.6000 #### [facility] [address] [facility] [place], [address] RDW SD 39.6 fl Normal 35.1-43.9 [facility] Comment on above: Performed By: #### L 501.9520, L3300.1500, L501.9985, L3100.5310, L801.2600, L3300.1750, L500.4050, L506.0400, L3100.5055, L509.6000 #### [facility] [address] [place], [address] WBC (Bld) [#/Vol] 9.7 10*3/uL Normal 4.4-11.0 [facility] Comment on above: Performed By: #### L 501.9520, L3300.1500, L501.9985, L3100.5310, L801.2600, L3300.1750, L500.4050, L506.0400, L3100.5055, L509.6000 #### [facility] [address] [place], [address] Chest 1 View (Portable)on Chest 1 View (Portable) [facility] [address] [place] [address] Chest 1 View (Portable) MR#: [id number] Acct: [id number] Name: BALJIT GERMAN Rep #: [id number] : 1970 F 54 From: Mansoor Laura MD PCP: Dr. Shahzad Reynolds MD Status: REG ER Study: Chest 1 View (Portable) Date of Exam: 07/21/24 Exam# [id number] Ordering Dr: Patrick Machuca MD PROCEDURE: CHEST 1 VIEW (PORTABLE) REASON FOR EXAM: Chest pain TECHNIQUE: Frontal view of the chest. COMPARISON: 01/30/2024 FINDINGS: The lungs are clear. Pulmonary vascularity appears within limits. Cardiac and mediastinal contours appear within limits. Visualized osseous structures appear within limits. RAD/Chest 1 View (Portable) IMPRESSION: No evidence of acute disease.. Reading Location: [facility] CC: Dr. Patrick Machuca MD; Dr. Shahzad Reynolds MD Superintendent Car Construction: Signed Normal [facility] D-Dimer Quantitative (DVT/PE )on 07-21-2024 D-DIMER QUANT 0.27 FEU/ug/m Normal 0.27-0.49 [facility] Comment on above: Result Comment: NORM AL D-Dimer level (<0.50) indicates no DVT or PE. Performed By: #### L 501.9520, L3300.1500, L501.9985, L3100.5310, L801.2600, L3300.1750, L500.4050, L506.0400, L3100.5055, L509.6000 #### [facility] [address] [facility] [place], [address] Emergency Department Summary on 07-21-2024 Emergency Department Summary [facility] Medical Records Department [address] [place] [address] Emergency Department Summary 07/21/24 MR#: [id number] Acct: [id number] Name: BALJIT GERMAN Rep #: [id number] : 1970 54 From: Patrick Machuca MD PCP: Dr. 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 [facility] Medical History Borderline type 2 diabetes mellitus [...] tsp PO DAILY 10/16/22 Unknown Hi story ashwagandha extract 120 mg capsule 120 mg [...] 75 mg capsule 75 mg PO BID 02/10/25 Unknown Hist ory Allergy/AdvReac Type Severity Reaction Status Date / Time codeine Allergy Itching Verified 07/21/24 22:26 lisinopril Allergy Angioedema Verified 07/21/24 22:26 Family History Sister , of ID CAD (coronary artery disease) Myocardial infarction Sudden [...] Denies chil (more content not included)... Normal [facility] L501.4021on 07-21-2024 Trop T High Sen 7 ng/L Normal <=14 [facility] Comment on above: Performed By: #### L 501.9520, L3300.1500, L501.9985, L3100.5310, L801.2600, L3300.1750, L500.4050, L506.0400, L3100.5055, L509.6000 #### [facility] [address] [place], [place], [address] Internal Medicine Office Vis iton 06-27-2024 Internal Medicine Office Visit [facility] [address] [place] [address] [place] [address] OFFICE VISIT Date of Service: 06/27/24 MR#: [id number] Acct: [id number] Name: MAXIBALJIT Adam Rep #: [id number] : 1970 Provider: Dr. Shahzad nur MD Age/Sex: 54/F [place] [facility] [place] Status: Signed Intake Vital [...] WOULD LIKE TO DISCUSS MOST RECENT LABS COUNTS INCLUDE 234 BEDS AT THE [facility] Medical History (Updated 06/27/24 @ 16:[address] Shahzad Reynolds MD) Borderline type 2 diabetes mellitus [...] tubal ligation Family History Sister , of ID CAD (coronary artery disease) Myocardial infarction Sudden [...] has not (more content not included)... Normal [facility] CNOVon 06-17-2024 CNOV Office Visit (UCWSTR ) BALJIT GERMAN ([id number]) 1970 F Date Time Provider Department 06/17/24 4:30 PM SUDHA SALGADO [facility] During your visit today, we recorded the following information about you: Temperature Pulse Respiration Blood pressure 98 degrees 72/minute 18/minute 132/86 Weight 123.3 kg Sudha Salgado APRN.LEAD SOFTWARE TESTER 06/17/2024 4:47 PM Signed Subjective Female with [...] history is provided by the patient. No bilingual speech language pathologist was used. Dental Problem Review of Systems [...] (attention deficit hyperactivity disorder) Anxiety Cocaine abuse ([facility]) 10/2013 Current smoker GERD (gastroesophageal reflux disease) [...] (HCC) 06/10/2020 AND other substances. Rehab at [facility] PAST SURGICAL HISTORY Procedure Laterality Date APPENDECTOMY [...] LIGATION 1993 SALPINGO-OOPHORECTOMY COMPL/PRTL UNI/BI SPX 2012 Imrhpdzn-rtvvtnbkbenf-w one separate from hysterectomy TOTAL ABDOMINAL HYSTERECT [...] (Patient not taking: Reported on 05/16/2024) Vitamin R79-Uumqr Acid 0.5-1 mg tab Take by mouth. [...] (Pancreatic ca (more content not included)... Normal [facility] CNOVon 05-16-2024 CNOV Office Visit (WSTR ) BALJIT GERMAN ([id number]) 1970 F Date Time Provider Department 05/16/24 4:45 PM STACIE JAIN [facility] During your visit today, we recorded the following information about you: Temperature Pulse Respiration Blood pressure 98.2 degrees 71/minute 18/minute 138/84 Weight 119.9 kg Stacie Jain APRN.LEAD SOFTWARE TESTER 05/16/2024 5:23 PM Signed Subjective Cough Associated [...] (HCC) 06/10/2020 AND other substances. Rehab at [facility] PAST SURGICAL HISTORY Procedure Laterality Date APPENDECTOMY [...] LIGATION 1993 SALPINGO-OOPHORECTOMY COMPL/PRTL UNI/BI SPX 2011 Bjhmmxyv-klhejfrgwtan-l one separate from hysterectomy TOTAL ABDOMINAL HYSTERECT [...] (Patient not taking: Reported on 05/16/2024) Vitamin D60-Dirxz Acid 0.5-1 mg tab Take by mouth. [...] Objective Phy (more content not included)... Normal [facility] STREP A MOLECULAR (POC)on Procedural Control Valid [facility] Strep A (POCT) Negative Negative [facility] XR CHEST 2V FRONTAL/LATon XR CHEST [...] the spine. IMPRESSION: No acute radiographic abnormality. Superintendent Car Construction: MARICEL Transcribe Date/Time: May 16 2024 5:12P Dictated by : SANGEETHA MOSER MD This examination was interpreted and the report reviewed and electronically signed by: SANGEETHA MOSER MD on May 16 2024 5:12PM EST [id number] Normal [facility] XR Chest PA and Lateralon IMPRESSION: No acute radiographic abnormality. Superintendent Car Construction: MARICEL Transcribe Date/Time: May 16 2024 5:12P [...] in the spine. DIVISION OF RADIOLOGY Provider, [facility] - 05/16/2024 * * *Final Report* * [...] spine. IMPRESSION IMPRESSION: No acute radiographic abnormality. Superintendent Car Construction: PSCB Transcribe Date/Time: May 16 2024 5:12P Dictated by : SANGEETHA MOSER MD This examination was interpreted and the report reviewed and electronically signed by: SANGEETHA MOSER MD on May 16 2024 5:12PM EST [facility] Radiology Study observation (narrative) [facility] XR Chest PA and LateralOrder ed By: [facility] Provider on 05-16-2024 [facility] DHEA Sulfateon 04-27-2024 DHEA SULFATE 10.3 ug/dL Low 41.2-243.7 [facility] Comment on above: Order Comment: NN Result Comment: Perf ormed at: - [facility] [id number] Paste Plant Supervisor: Artie Rosas PhD, Phone: [phone] Performed at: [facility] [id number] Paste Plant Supervisor: Mary Lim MD, Phone: [phone] Performed By: #### L 501.9520, L100.0100 #### [facility] [address] [place], [address] Testosterone, Total / Freeon 04-27-2024 TESTOSTER,FREE <.04 Abnormal 0.10-0.85 [facility] Comment on above: Order Comment: NN Performed By: #### L 501.9520, L100.0100 #### [facility] [address] [place], [address] TESTOSTER,TOTAL < 3 Low 4-50 [facility] Comment on above: Order Comment: NN Performed By: #### L 501.9520, L100.0100 #### [facility] [address] [place], [address] TESTOSTERONE,%F 1.39 Normal 0.50-2.80 [facility] Comment on above: Order Comment: NN Performed By: #### L 501.9520, L100.0100 #### [facility] [address] [place], [address] PROGESTERONE 4317on 04-22-20 24 PROGESTERONE 0.1 ng/mL Normal . [facility] Comment on above: Order Comment: N Result Comment: Foll icular phase 0.1 - 0.9 Luteal phase 1.8 - 23.9 Ovulation phase 0.1 - 12.0 First trimester 11.0 - 44.3 Second trimester 25.4 - 83.3 Third trimester 58.7 - 214.0 Postmenopausal 0.0 - 0.1 Performed at: [address] [id number] Paste Plant Supervisor: Artie Rosas PhD, Phone: [phone] Performed By: #### L 501.9520, L3300.1500, L501.9985, L3100.5310, L801.2600, L3300.1750, L500.4050, L506.0400, L3100.5055, L509.6000 #### [facility] [address] [place], [address] CORTISOL SERUMon 04-20-2024 CORTISOL 4.50 ug/dL Normal 3.44-22.45 [facility] Comment on above: Result Comment: Adul t (AM) 5.27 - 22.45 ug/dL Adult (PM) 3.44 - 16.76 ug/dL Performed By: #### L 501.9520, L3300.1500, L501.9985, L3100.5310, L801.2600, L3300.1750, L500.4050, L506.0400, L3100.5055, L509.6000 #### [facility] [address] [place], [address] Comprehensive Metabolic Prof ilon 04-20-2024 Albumin [Mass/Vol] 3.0 g/dL Low 3.2-5.0 [facility] Comment on above: Order Comment: N Performed By: #### L 501.9520, L3300.1500, L501.9985, L3100.5310, L801.2600, L3300.1750, L500.4050, L506.0400, L3100.5055, L509.6000 #### [facility] [address] [place], [place], [address] Albumin/Globulin [Mass ratio] 0.7 {ratio} Low 0.9-2.4 [facility] Comment on above: Order Comment: N Performed By: #### L 501.9520, L3300.1500, L501.9985, L3100.5310, L801.2600, L3300.1750, L500.4050, L506.0400, L3100.5055, L509.6000 #### [facility] [address] [place], [address] ALK P 98 U/L Normal 45-117 [facility] Comment on above: Order Comment: N Performed By: #### L 501.9520, L3300.1500, L501.9985, L3100.5310, L801.2600, L3300.1750, L500.4050, L506.0400, L3100.5055, L509.6000 #### [facility] [address] [place], [address] ALT [Catalytic activity/Vol] 16 U/L Normal 13-56 [facility] Comment on above: Order Comment: N Performed By: #### L 501.9520, L3300.1500, L501.9985, L3100.5310, L801.2600, L3300.1750, L500.4050, L506.0400, L3100.5055, L509.6000 #### [facility] [address] [place], [address] AST [Catalytic activity/Vol] 11 U/L Low 15-37 [facility] Comment on above: Order Comment: N Performed By: #### L 501.9520, L3300.1500, L501.9985, L3100.5310, L801.2600, L3300.1750, L500.4050, L506.0400, L3100.5055, L509.6000 #### [facility] [address] [place], [address] Bilirubin [Mass/Vol] 0.20 mg/dL Normal 0.20-1.00 [facility] Comment on above: Order Comment: N Result Comment: For patients on eltrombopag therapy, use of Dimension [place] TBIL is not recommended. Performed By: #### L 501.9520, L3300.1500, L501.9985, L3100.5310, L801.2600, L3300.1750, L500.4050, L506.0400, L3100.5055, L509.6000 #### [facility] [address] [place], [address] BUN/CRE 13.9 RATIO Normal 10-20 [facility] Comment on above: Order Comment: N Performed By: #### L 501.9520, L3300.1500, L501.9985, L3100.5310, L801.2600, L3300.1750, L500.4050, L506.0400, L3100.5055, L509.6000 #### [facility] [address] [place], [place], [phone] (786) CA,Total 9.0 mg/dL Normal 8.5-10.1 [facility] Comment on above: Order Comment: N Performed By: #### L 501.9520, L3300.1500, L501.9985, L3100.5310, L801.2600, L3300.1750, L500.4050, L506.0400, L3100.5055, L509.6000 #### [facility] [address] [facility] [place], [address] (213) Chloride [Moles/Vol] 104 mmol/L Normal 98-107 [facility] Comment on above: Order Comment: N Performed By: #### L 501.9520, L3300.1500, L501.9985, L3100.5310, L801.2600, L3300.1750, L500.4050, L506.0400, L3100.5055, L509.6000 #### [facility] [address] [facility] [place], [place], [phone] (435) CO2 [Moles/Vol] 29.0 mmol/L Normal 21.0-32.0 [facility] Comment on above: Order Comment: N Performed By: #### L 501.9520, L3300.1500, L501.9985, L3100.5310, L801.2600, L3300.1750, L500.4050, L506.0400, L3100.5055, L509.6000 #### [facility] [address] [facility] [place], [place], [phone] (691) Creatinine [Mass/Vol] 0.87 mg/dL Normal 0.55-1.02 [facility] Comment on above: Order Comment: N Result Comment: The validity of the calculated GFR GFRAA in patients over 70 years has not been determined. Clinical correlation is essential. Performed By: #### L 501.9520, L3300.1500, L501.9985, L3100.5310, L801.2600, L3300.1750, L500.4050, L506.0400, L3100.5055, L509.6000 #### [facility] [address] [place], [place], [id number] (341) EST GFR - AA 88 mL/min Normal >60 [facility] Comment on above: Order Comment: N Result Comment: Afri can Bulgarian GFR Calc Performed By: #### L 501.9520, L3300.1500, L501.9985, L3100.5310, L801.2600, L3300.1750, L500.4050, L506.0400, L3100.5055, L509.6000 #### [facility] [address] [place], [place], [phone] (085) GAP 6 Normal 5-15 [facility] Comment on above: Order Comment: N Performed By: #### L 501.9520, L3300.1500, L501.9985, L3100.5310, L801.2600, L3300.1750, L500.4050, L506.0400, L3100.5055, L509.6000 #### [facility] [address] [place], [place], [id number] GFR/1.73 sq M.predicted among non-blacks MDRD (S/P/Bld) [Vol rate/Area] 73 mL/min/{1.73_m2} Normal >60 [facility] Comment on above: Order Comment: N Result Comment: Non- GFR Calc Performed By: #### L 501.9520, L3300.1500, L501.9985, L3100.5310, L801.2600, L3300.1750, L500.4050, L506.0400, L3100.5055, L509.6000 #### [facility] [address] [place], [place], [phone] (220) Globulin (S) [Mass/Vol] 4.5 g/dL High 2.2-4.2 [facility] Comment on above: Order Comment: N Performed By: #### L 501.9520, L3300.1500, L501.9985, L3100.5310, L801.2600, L3300.1750, L500.4050, L506.0400, L3100.5055, L509.6000 #### [facility] [address] [place], [address] Glucose [Mass/Vol] 79 mg/dL Normal 74-106 [facility] Comment on above: Order Comment: N Performed By: #### L 501.9520, L3300.1500, L501.9985, L3100.5310, L801.2600, L3300.1750, L500.4050, L506.0400, L3100.5055, L509.6000 #### [facility] [address] [place], [address] Potassium [Moles/Vol] 3.5 mmol/L Normal 3.5-5.1 [facility] Comment on above: Order Comment: N Performed By: #### L 501.9520, L3300.1500, L501.9985, L3100.5310, L801.2600, L3300.1750, L500.4050, L506.0400, L3100.5055, L509.6000 #### [facility] [facility] [address] [place], [address] Sodium [Moles/Vol] 138 mmol/L Normal 136-145 [facility] Comment on above: Order Comment: N Performed By: #### L 501.9520, L3300.1500, L501.9985, L3100.5310, L801.2600, L3300.1750, L500.4050, L506.0400, L3100.5055, L509.6000 #### [facility] [address] [place], [address] T PROT 7.5 g/dL Normal 6.4-8.2 [facility] Comment on above: Order Comment: N Performed By: #### L 501.9520, L3300.1500, L501.9985, L3100.5310, L801.2600, L3300.1750, L500.4050, L506.0400, L3100.5055, L509.6000 #### [facility] [address] [place], [address] Urea nitrogen [Mass/Vol] 12 mg/dL Normal 7-18 [facility] Comment on above: Order Comment: N Performed By: #### L 501.9520, L3300.1500, L501.9985, L3100.5310, L801.2600, L3300.1750, L500.4050, L506.0400, L3100.5055, L509.6000 #### [facility] [address] [facility] [place], [place], [id number] Estradiolon 04-20-2024 ESTRADIOL 26.7 pg/mL Normal [facility] Comment on above: Order Comment: N [...] ESTRADIOL CONCENTRATION. Performed By: #### L 501.9520, L3300.1500, L501.9985, L3100.5310, L801.2600, L3300.1750, L500.4050, L506.0400, L3100.5055, L509.6000 #### [facility] [address] [place], [place], [address] FSH and LHon 04-20-2024 FSH 24.8 mIU/mL Normal [facility] Comment on above: Order Comment: N Result Comment: NORMAL REFERENCE RANGES FEMALE FOLLICULAR 2.3 - 12.6 mIU/mL MID-CYCLE PEAK 5.2 - 17.5 mIU/mL LUTEAL 1.7 - 12.9 mIU/mL POST-MENOPAUSAL ON MHT 5.9 - 72.8 mIU/mL NOT ON MHT 12.7 - 132.2 mlU/mL MALE 0.7 - 10.8 mIU/mL Performed By: #### L 501.9520, L3300.1500, L501.9985, L3100.5310, L801.2600, L3300.1750, L500.4050, L506.0400, L3100.5055, L509.6000 #### [facility] [address] [place], [place], [address] LH 20.4 mIU/mL Normal [facility] Comment on above: Order Comment: N Result Comment: NORMAL REFERENCE RANGES FEMALE FOLLICULAR 1.9 - 26.2 mIU/mL MID-CYCLE PEAK 22.8 - 76.1 mIU/mL LUTEAL 0.6 - 16.6 mIU/mL POST-MENOPAUSAL ON MHT 1.1 - 52.4 mIU/mL NOT ON MHT 8.6 - 61.8 mIU/mL MALE 1.2 - 10.6 mIU/mL Performed By: #### L 501.9520, L3300.1500, L501.9985, L3100.5310, L801.2600, L3300.1750, L500.4050, L506.0400, L3100.5055, L509.6000 #### [facility] [address] [place], [place], [id number] Hemoglobin A1con 04-20-2024 HbA1c (Bld) [Mass fraction] 6.2 % High 3.8-5.6 [facility] Comment on above: Result Comment: Norm al < 5.7 % Prediabetic 5.7 - 6.4 % Diabetic >or= 6.5 % Please note range changes. Performed By: #### L 501.9520, L3300.1500, L501.9985, L3100.5310, L801.2600, L3300.1750, L500.4050, L506.0400, L3100.5055, L509.6000 #### [facility] [address] [place], [place], [address] T4 Free Directon 04-20-2024 T4 FREE DIRECT 0.89 ng/dL Normal 0.76-1.46 [facility] Comment on above: Order Comment: N Performed By: #### L 501.9520, L3300.1500, L501.9985, L3100.5310, L801.2600, L3300.1750, L500.4050, L506.0400, L3100.5055, L509.6000 #### [facility] [address] [place], [place], [address] Thyroid Stim Hormone (TSH)on 04-20-2024 TSH 5.440 uIU/mL High 0.358-3.740 [facility] Comment on above: Order Comment: N Performed By: #### L 501.9520, L3300.1500, L501.9985, L3100.5310, L801.2600, L3300.1750, L500.4050, L506.0400, L3100.5055, L509.6000 #### [facility] [address] [place], [place], [id number] CORTISOL SERUMon 04-05-2024 CORTISOL 16.20 ug/dL Normal 3.44-22.45 [facility] Comment on above: Result Comment: Adul t (AM) 5.27 - 22.45 ug/dL Adult (PM) 3.44 - 16.76 ug/dL Performed By: #### L 501.9520, L3300.1500, L501.9985, L3100.5310, L801.2600, L3300.1750, L500.4050, L506.0400, L3100.5055, L509.6000 #### [facility] [address] [place], [address] Comprehensive Metabolic Prof ilon 04-05-2024 ALB Normal 3.2-5.0 [facility] Comment on above: Order Comment: N Result Comment: COUL D ONLY OBTAIN CORTISOL SENT PATIENT TO OP PATIET DID NOT SHOW UP Performed By: #### L 501.9520, L3300.1500, L501.9985, L3100.5310, L801.2600, L3300.1750, L500.4050, L506.0400, L3100.5055, L509.6000 #### [facility] [address] [place], [address] ALK P Normal 45-117 [facility] Comment on above: Order Comment: N Result Comment: COUL D ONLY OBTAIN CORTISOL SENT PATIENT TO OP PATIET DID NOT SHOW UP Performed By: #### L 501.9520, L3300.1500, L501.9985, L3100.5310, L801.2600, L3300.1750, L500.4050, L506.0400, L3100.5055, L509.6000 #### [facility] [address] [place], [address] ALT Normal 13-56 [facility] Comment on above: Order Comment: N Result Comment: COUL D ONLY OBTAIN CORTISOL SENT PATIENT TO OP PATIET DID NOT SHOW UP Performed By: #### L 501.9520, L3300.1500, L501.9985, L3100.5310, L801.2600, L3300.1750, L500.4050, L506.0400, L3100.5055, L509.6000 #### [facility] [address] [place], [address] AST Normal 15-37 [facility] Comment on above: Order Comment: N Result Comment: COUL D ONLY OBTAIN CORTISOL SENT PATIENT TO OP PATIET DID NOT SHOW UP Performed By: #### L 501.9520, L3300.1500, L501.9985, L3100.5310, L801.2600, L3300.1750, L500.4050, L506.0400, L3100.5055, L509.6000 #### [facility] [address] [place], [address] BUN Normal 7-18 [facility] Comment on above: Order Comment: N Result Comment: COUL D ONLY OBTAIN CORTISOL SENT PATIENT TO OP PATIET DID NOT SHOW UP Performed By: #### L 501.9520, L3300.1500, L501.9985, L3100.5310, L801.2600, L3300.1750, L500.4050, L506.0400, L3100.5055, L509.6000 #### [facility] [address] [place], [address] BUN/CRE Normal 10-20 [facility] Comment on above: Order Comment: N Result Comment: COUL D ONLY OBTAIN CORTISOL SENT PATIENT TO OP PATIET DID NOT SHOW UP Performed By: #### L 501.9520, L3300.1500, L501.9985, L3100.5310, L801.2600, L3300.1750, L500.4050, L506.0400, L3100.5055, L509.6000 #### [facility] [address] [place], [address] CA,Total Normal 8.5-10.1 [facility] Comment on above: Order Comment: N Result Comment: COUL D ONLY OBTAIN CORTISOL SENT PATIENT TO OP PATIET DID NOT SHOW UP Performed By: #### L 501.9520, L3300.1500, L501.9985, L3100.5310, L801.2600, L3300.1750, L500.4050, L506.0400, L3100.5055, L509.6000 #### [facility] [address] [place], [address] CL Normal 98-107 [facility] Comment on above: Order Comment: N Result Comment: COUL D ONLY OBTAIN CORTISOL SENT PATIENT TO OP PATIET DID NOT SHOW UP Performed By: #### L 501.9520, L3300.1500, L501.9985, L3100.5310, L801.2600, L3300.1750, L500.4050, L506.0400, L3100.5055, L509.6000 #### [facility] [address] [place], [address] CO2 Normal 21.0-32.0 [facility] Comment on above: Order Comment: N Result Comment: COUL D ONLY OBTAIN CORTISOL SENT PATIENT TO OP PATIET DID NOT SHOW UP Performed By: #### L 501.9520, L3300.1500, L501.9985, L3100.5310, L801.2600, L3300.1750, L500.4050, L506.0400, L3100.5055, L509.6000 #### [facility] [address] [place], [address] CREAT,SERUM Normal 0.55-1.02 [facility] Comment on above: Order Comment: N Result Comment: COUL D ONLY OBTAIN CORTISOL SENT PATIENT TO OP PATIET DID NOT SHOW UP Performed By: #### L 501.9520, L3300.1500, L501.9985, L3100.5310, L801.2600, L3300.1750, L500.4050, L506.0400, L3100.5055, L509.6000 #### [facility] [address] [place], [address] EST GFR Normal >60 [facility] Comment on above: Order Comment: N Result Comment: COUL D ONLY OBTAIN CORTISOL SENT PATIENT TO OP PATIET DID NOT SHOW UP Performed By: #### L 501.9520, L3300.1500, L501.9985, L3100.5310, L801.2600, L3300.1750, L500.4050, L506.0400, L3100.5055, L509.6000 #### [facility] [address] [place], [address] EST GFR - AA Normal >60 [facility] Comment on above: Order Comment: N Result Comment: COUL D ONLY OBTAIN CORTISOL SENT PATIENT TO OP PATIET DID NOT SHOW UP Performed By: #### L 501.9520, L3300.1500, L501.9985, L3100.5310, L801.2600, L3300.1750, L500.4050, L506.0400, L3100.5055, L509.6000 #### [facility] [address] [place], [address] GAP Normal 5-15 [facility] Comment on above: Order Comment: N Result Comment: COUL D ONLY OBTAIN CORTISOL SENT PATIENT TO OP PATIET DID NOT SHOW UP Performed By: #### L 501.9520, L3300.1500, L501.9985, L3100.5310, L801.2600, L3300.1750, L500.4050, L506.0400, L3100.5055, L509.6000 #### [facility] [address] [place], [address] GLU Normal 74-106 [facility] Comment on above: Order Comment: N Result Comment: COUL D ONLY OBTAIN CORTISOL SENT PATIENT TO OP PATIET DID NOT SHOW UP Performed By: #### L 501.9520, L3300.1500, L501.9985, L3100.5310, L801.2600, L3300.1750, L500.4050, L506.0400, L3100.5055, L509.6000 #### [facility] [address] [place], [address] Potassium Normal 3.5-5.1 [facility] Comment on above: Order Comment: N Result Comment: COUL D ONLY OBTAIN CORTISOL SENT PATIENT TO OP PATIET DID NOT SHOW UP Performed By: #### L 501.9520, L3300.1500, L501.9985, L3100.5310, L801.2600, L3300.1750, L500.4050, L506.0400, L3100.5055, L509.6000 #### [facility] [address] [place], [address] T BILI Normal 0.20-1.00 [facility] Comment on above: Order Comment: N Result Comment: COUL D ONLY OBTAIN CORTISOL SENT PATIENT TO OP PATIET DID NOT SHOW UP Performed By: #### L 501.9520, L3300.1500, L501.9985, L3100.5310, L801.2600, L3300.1750, L500.4050, L506.0400, L3100.5055, L509.6000 #### [facility] [address] [place], [address] T PROT Normal 6.4-8.2 [facility] Comment on above: Order Comment: N Result Comment: COUL D ONLY OBTAIN CORTISOL SENT PATIENT TO OP PATIET DID NOT SHOW UP Performed By: #### L 501.9520, L3300.1500, L501.9985, L3100.5310, L801.2600, L3300.1750, L500.4050, L506.0400, L3100.5055, L509.6000 #### [facility] [address] [place], [address] Comprehensive Metabolic Profil Normal 136-145 [facility] Comment on above: Order Comment: N Result Comment: COUL D ONLY OBTAIN CORTISOL SENT PATIENT TO OP PATIET DID NOT SHOW UP Performed By: #### L 501.9520, L3300.1500, L501.9985, L3100.5310, L801.2600, L3300.1750, L500.4050, L506.0400, L3100.5055, L509.6000 #### [facility] [address] [place], [address] FSH and LHon 04-05-2024 FSH Normal [facility] Comment on above: Order Comment: N Result Comment: COUL D ONLY OBTAIN CORTISOL SENT PATIENT TO OP PATIET DID NOT SHOW UP Performed By: #### L 501.9520, L3300.1500, L501.9985, L3100.5310, L801.2600, L3300.1750, L500.4050, L506.0400, L3100.5055, L509.6000 #### [facility] [address] [place], [address] LH Normal [facility] Comment on above: Order Comment: N Result Comment: COUL D ONLY OBTAIN CORTISOL SENT PATIENT TO OP PATIET DID NOT SHOW UP Performed By: #### L 501.9520, L3300.1500, L501.9985, L3100.5310, L801.2600, L3300.1750, L500.4050, L506.0400, L3100.5055, L509.6000 #### [facility] [address] [place], [address] Testosterone, Total / Freeon 04-05-2024 TESTOSTER,FREE Normal [facility] Comment on above: Order Comment: NN Result Comment: COUL D ONLY OBTAIN CORTISOL SENT PATIENT TO OP PATIET DID NOT SHOW UP Performed By: #### L 501.9520, L3300.1500, L501.9985, L3100.5310, L801.2600, L3300.1750, L500.4050, L506.0400, L3100.5055, L509.6000 #### [facility] [address] [place], [address] TESTOSTER,TOTAL Normal [facility] Comment on above: Order Comment: NN Result Comment: COUL D ONLY OBTAIN CORTISOL SENT PATIENT TO OP PATIET DID NOT SHOW UP Performed By: #### L 501.9520, L3300.1500, L501.9985, L3100.5310, L801.2600, L3300.1750, L500.4050, L506.0400, L3100.5055, L509.6000 #### [facility] [address] [place], [address] TESTOSTERONE,%F Normal 0.50-1.80 [facility] Comment on above: Order Comment: NN Result Comment: COUL D ONLY OBTAIN CORTISOL SENT PATIENT TO OP PATIET DID NOT SHOW UP Performed By: #### L 501.9520, L3300.1500, L501.9985, L3100.5310, L801.2600, L3300.1750, L500.4050, L506.0400, L3100.5055, L509.6000 #### [facility] [address] 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 Normal [facility] Absolute lymphocyte counton 02-11-2022 Lymphocytes Auto (Unsp spec) [#/Vol] 4.28 10*3/uL 0.83-4.51 [facility] Work Phone: Basophil percentageon 2021 Basophils/100 WBC (Bld) 1.0 % 0-1 [facility] Work Phone: Bilirubin [Mass/Vol] 0.10 mg/dL 0.20-1.00 [facility] Work Phone: Comment on above: For patients on eltr ombopag therapy, use of Dimension [place] TBIL is not recommended. Chloride [Moles/Vol] 103 mmol/L 98-107 [facility] Work Phone: Cholesterol [Mass/Vol] 190 mg/dL <200 [facility] Work Phone: Comment on above: <200 mg/dL Desirable 200-240 mg/dL Borderline >240 mg/dL High Risk Eosinophils/100 WBC (Bld) 3.3 % 0-5 [facility] Work Phone: Glucose [Mass/Vol] 117 mg/dL 74-106 [facility] Work Phone: Comment on above: Fasting Glucose resu lt from 100 to 125 mg/dL suggests IMPAIRED HOMEOSTASIS per A.D.A. criteria. Neutrophils (Bld) [#/Vol] 2.9 10*3/uL 2.0-7.7 [facility] Work Phone: Neutrophils/100 WBC (Bld) 35.4 % 47-70 [facility] Work Phone: Potassium [Moles/Vol] 3.7 mmol/L 3.5-5.1 [facility] Work Phone: Protein [Mass/Vol] 7.6 g/dL 6.4-8.2 [facility] Work Phone: Sodium [Moles/Vol] 138 mmol/L 136-145 [facility] Work Phone: Triglyceride [Mass/Vol] 79 mg/dL <199 [facility] Work Phone: Comment on above: The drugs N-Acetylcy steine and Metamizole may falsely depress this assay.Serum Triglycerides Reference Interval Normal <150 mg/dL Borderline high 150 - 199 mg/dL High 200 - 499 mg/dL Very High > or = 500 mg/dL WBC (Bld) [#/Vol] 8.2 10*3/uL 4.4-11.0 [facility] Work Phone: Blood erythrocytes count (nu mber/volume)on 02-11-2022 RBC (Bld) [#/Vol] 4.53 10*6/uL 4.2-5.4 [facility] Work Phone: Blood hemoglobin measurement (mass/volume)on 02-11-2022 Hemoglobin (Bld) [Mass/Vol] 12.5 g/dL 12.0-15.0 [facility] Work Phone: Blood lymphocytes/100 leukoc yteson 02-11-2022 Lymphocytes/100 WBC (Bld) 52.5 % 19-41 [facility] Work Phone: Blood monocytes/100 leukocyt eson 02-11-2022 Monocytes/100 WBC (Bld) 7.6 % 0-10 [facility] Work Phone: Blood platelet mean volumeon 02-11-2022 Platelet mean volume (Bld) [Entitic vol] 10.5 fL 6.2-12.0 [facility] Work Phone: Determination of erythrocyte mean corpuscular volume (MCV)on 02-11-2022 MCV (RBC) [Entitic vol] 87.6 fL 81-99 [facility] Work Phone: Hematocrit Auto (Bld) [Volum e fraction]on 02-11-2022 Hematocrit (Bld) [Volume fraction] 39.7 % 37-47 [facility] Work Phone: Laboratory - Chemistry and C hemistry - challengeon 02-11-2022 ALP [Catalytic activity/Vol] 100 U/L 45-117 [facility] Work Phone: ALT [Catalytic activity/Vol] 25 U/L 13-56 [facility] Work Phone: CO2 [Moles/Vol] 27.0 mmol/L 21.0-32.0 [facility] Work Phone: Cobalamin (Vitamin B12) [Mass/Vol] 470 pg/mL 211-911 [facility] Work Phone: Globulin (S) [Mass/Vol] 4.3 g/dL 2.2-4.2 [facility] Work Phone: Urea nitrogen/Creatinine [Mass ratio] 12.4 mg/mg 10-20 [facility] Work Phone: Laboratory - Hematology and Cell countson 02-11-2022 Erythrocyte distribution width (RBC) [Entitic vol] 39.5 fL 35.1-43.9 [facility] Work Phone: Erythrocyte distribution width (RBC) [Ratio] 12.3 % 11.6-14.6 [facility] Work Phone: Immature granulocytes/100 WBC (Bld) 0.200 % 0.0-0.9 [facility] Work Phone: Comment on above: IG% - Immature Granu locytes (promyelocytes, myelocytes and metamyelocytes) > 1% indicates that a LEFT SHIFT is Present. MCH (RBC) [Entitic mass] 27.6 pg 27.0-32.0 [facility] Work Phone: Nucleated RBC/100 WBC (Bld) [Ratio] 0 % 0-5 [facility] Work Phone: MCHC Auto (RBC) [Mass/Vol]on 02-11-2022 MCHC (RBC) [Mass/Vol] 31.5 g/dL 32-36 [facility] Work Phone: No Panel Informationon 02-11 Estimated GFR (MDRD) Amer 79 mL/min >60 [facility] Work Phone: Comment on above: GFR Calc Estimated GFR (MDRD) Non-Af Amer 65 mL/min >60 [facility] Work Phone: Comment on above: Non- GFR Calc Thyroid Stimulating Hormone (TSH) 5.48 uIU/mL 0.358-3.74 [facility] Work Phone: Vitamin D 25-Hydroxy 14.8 ng/mL [facility] Work Phone: Comment on above: Vitamin D 25(OH) Sta tus Range Deficiency <20 ng/mL (50nmol/L) Insufficiency 20 - 30 ng/mL (50 - 75 nmol/L) Sufficiency 30 - 100 ng/mL (75 - 250 nmol/L) Toxicity >100 ng/mL (>250 nmol/L) Platelets bldon 02-11-2022 Platelets (Bld) [#/Vol] 324 10*3/uL 150-450 [facility] Work Phone: Serum or plasma albumin kieran urement (mass/volume)on 02-11-2022 Albumin [Mass/Vol] 3.3 g/dL 3.2-5.0 [facility] Work Phone: Serum or plasma albumin/glob ulin mass ratioon 02-11-2022 Albumin/Globulin [Mass ratio] 0.8 {ratio} 0.9-2.4 [facility] Work Phone: Serum or plasma calcium kieran urement (mass/volume)on 02-11-2022 Calcium [Mass/Vol] 8.8 mg/dL 8.5-10.1 [facility] Work Phone: Serum or plasma cholesterol in HDL measurement (mass/volume)on 02-11-2022 Cholesterol in HDL [Mass/Vol] 61 mg/dL >40 [facility] Work Phone: Comment on above: The drugs N-Acetylcy steine and Metamizole may falsely depress this assay. Reference Range HDL <40 mg/dL Low HDL Cholesterol HDL >or= 60 mg/dL High HDL Cholesterol Serum or plasma cholesterol in VLDL measurement (mass/volume)on 02-11-2022 Cholesterol in VLDL [Mass/Vol] 16 mg/dL 5-40 [facility] Work Phone: Serum or plasma creatinine m easurement (mass/volume)on 02-11-2022 Creatinine [Mass/Vol] 0.97 mg/dL 0.55-1.02 [facility] Work Phone: Comment on above: The validity of the calculated GFR & GFRAA in patients over 70 years has not been determined. Clinical correlation is essential. Serum or plasma low density lipoprotein (LDL) cholesterol measurement (mass/volume)on 02-11-2022 Cholesterol in LDL [Mass/Vol] 113 mg/dL 0-130 [facility] Work Phone: Serum or plasma urea nitroge n measurement (mass/volume)on 02-11-2022 Urea nitrogen [Mass/Vol] 12 mg/dL 7-18 [facility] Work Phone: Thin prep Papanicolaou smear with manual screeningon 02-11-2022 Thin prep Papanicolaou smear with manual screening 14 U/L 15-37 [facility] Work Phone: Thin prep Papanicolaou smear with manual screening 8 5-15 [facility] Work Phone: Laboratory - Microbiology an d Antimicrobial susceptibilityon 01-06-2022 SARS-CoV-2 (COVID-19) RNA JOSE LUIS+probe Ql (Unsp spec) Detected [facility] Work Phone: No Panel Informationon 01-06 POC Nasal Swab Influenza A,B Not detected [facility] Work Phone: POC Nasal Swab RSV Not detected [facility] Work Phone: Established Visit (Otolaryng ology)on 01-12-2019 Established Visit (Otolaryngology) Diagnoses/Problems Tinnitus of right ear (388.30) (H93.11) Vestibular migraine (346.00) (G43.109) Vertigo (780.4) (R42) 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 Brooks at [place] [facility] for initial evaluation of vertigo. The [...] Jan 12 2019 11:06AM EST (Author) Normal [facility] Established Visit (Otolaryng ology)on 08-24-2018 Established Visit (Otolaryngology) Diagnoses/Problems Vertigo (780.4) (R42) Orders IO Vestibular Evoked Myogenic Potential; Status:Active - Perform Order,Retrospective By Protocol Authorization; Requested for:24Aug2018; Perform:In Office; Order Comments:PLEASE CALL [phone] TO SCHEDULE THIS PROCEDURE; Due:[id number]; Last Updated By:Hannah Salas; 08/24/2018 12:25:04 PM;Ordered; [...] to next appointment - CT IAC @ [place] requested - will call with results Chief [...] yo female referred by Dr. Brooks at [place] [facility] for initial evaluation of vertigo. The [...] Aug 24 2018 1:01PM EST (Author) Normal [facility] Established Visit (Otolaryng ology)on 03-30-2018 Established Visit [...] yo female referred by Dr. Brooks at [place] [facility] for initial evaluation of vertigo. The [...] Oral Tablet; TAKE 1 TABLET NEEDED; Therapy: [id number] to (Evaluate:[id number]); Last Rx:[id number] Ordered Rx By: Siobhan Lopez; Dispense: 30 Days ; #:30 Tablet; Refill: 0;For: 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; ABIEL = N; Print Rx Formulary Override Reason: Patient has requested non-preferred drug Ondansetron 4 MG Oral Tablet Disintegrating; Place one tablet under the tongue every 8 hrs as needed nausea; Therapy: 01Mar2018 to (Last Rx:[id number]) Requested for: 02Mar2018 Ordered Rx By: Siobhan Lopez; Dispense: 0 Days ; #:20 Tablet Disintegrating; Refill: 1;For: Vertigo; ABIEL = N; Verified Transmission to [facility] AmLODIPine Besylate 5 MG Oral Tablet; TAKE 1 TABLET BY MOUTH EVERY DAY; Therapy: 02Sep2016 to Recorded Rx By: Ruiz; Dispense: 30 Days ; #:30; Refill: 0; ABIEL = N; Record; Last Updated By: Gabib Lewis; 11/24/2017 8:09:16 AM DiazePAM 2 MG [...] Recorded: 30Mar2018 02:25PM Height5 ft 4 in Nlpzen804 lb 7 oz BMI Xkilmqghku19.58 BSA Calculated2.1 Physical Exam Constitutional General appearance: [...] Vertigo; ABIEL = N; Verified Transmission to [facility]; Last Updated By: Peri Luciano; 03/30/2018 3:22:27 PM IO Vestibular Evoked Myogenic Potential; Status:Active - Perform Order,Retrospective Authorization; Requested for:30Mar2018; Perform:In Office; Order Comments:Rule out a perilymphatic fistula or superior semicircular canal dehiscence; Due:[id number]; Last Updated By:Freddie Hebert; 03/30/2018 2:36:58 PM;Ordered; [...] of bony anatomy to be requested from [place] -Will call w read for CT IAC [...] index (BMI) [Ratio] 46.96 kg/m2 Alvarado Swank BACK MAKER.LEAD SOFTWARE TESTER Work Phone: [facility] 12-24-2024 11:22-0400 Body temperature 98.49 [degF] Alvarado Swank BACK MAKER.LEAD SOFTWARE TESTER Work Phone: [facility] 12-24-2024 11:22-0400 Body weight 124.1 kg Alvarado Swank BACK MAKER.LEAD SOFTWARE TESTER Work Phone: [facility] 12-24-2024 11:22-0400 Diastolic blood pressure 72 mm[Hg] Alvarado Swank BACK MAKER.LEAD SOFTWARE TESTER Work Phone: [facility] 12-24-2024 11:22-0400 Heart rate 78 /min Alvarado Swank BACK MAKER.LEAD SOFTWARE TESTER Work Phone: [facility] 12-24-2024 11:22-0400 Respiratory rate 16 /min Alvarado Swank BACK MAKER.LEAD SOFTWARE TESTER Work Phone: [facility] 12-24-2024 11:22-0400 Systolic blood pressure 118 mm[Hg] Alvarado Swank BACK MAKER.LEAD SOFTWARE TESTER Work Phone: [facility] 12-02-2024 17:17-0400 Body temperature 98.1 [degF] Fernando Dalia BACK MAKER.LEAD SOFTWARE TESTER Work Phone: [facility] 12-02-2024 17:17-0400 Diastolic blood pressure 83 mm[Hg] Fernando Gómez BACK MAKER.LEAD SOFTWARE TESTER Work Phone: [facility] 12-02-2024 17:17-0400 Heart rate 94 /min Fernando Gómez BACK MAKER.LEAD SOFTWARE TESTER Work Phone: [facility] 12-02-2024 17:17-0400 Respiratory rate 20 /min Fernando Gómez BACK MAKER.LEAD SOFTWARE TESTER Work Phone: [facility] 12-02-2024 17:17-0400 SaO2% (BldA) [Mass fraction] 98 % Fernando Gómez BACK MAKER.LEAD SOFTWARE TESTER Work Phone: [facility] 12-02-2024 17:17-0400 Systolic blood pressure 119 mm[Hg] Fernando Gómez BACK MAKER.LEAD SOFTWARE TESTER Work Phone: [facility] 06-17-2024 16:34-0500 Body mass index (BMI) [Ratio] 46.66 kg/m2 Sudha Salgado APRN.LEAD SOFTWARE TESTER Work Phone: [facility] 06-17-2024 16:34-0500 Body temperature 98.01 [degF] Sudha Salgado APRN.LEAD SOFTWARE TESTER Work Phone: [facility] 06-17-2024 16:34-0500 Body weight 123.3 kg Sudha Salgado APRN.LEAD SOFTWARE TESTER Work Phone: [facility] 06-17-2024 16:34-0500 Diastolic blood pressure 86 mm[Hg] Sudha Salgado APRN.LEAD SOFTWARE TESTER Work Phone: [facility] 06-17-2024 16:34-0500 Heart rate 72 /min Sudha Salgado APRN.LEAD SOFTWARE TESTER Work Phone: [facility] 06-17-2024 16:34-0500 Respiratory rate 18 /min Sudha Salgado APRN.LEAD SOFTWARE TESTER Work Phone: [facility] 06-17-2024 16:34-0500 SaO2% (BldA) [Mass fraction] 98 % Sudha Salgado APRN.LEAD SOFTWARE TESTER Work Phone: [facility] 06-17-2024 16:34-0500 Systolic blood pressure 132 mm[Hg] Sudha Salgado APRN.LEAD SOFTWARE TESTER Work Phone: [facility] 05-16-2024 16:38-0500 Body mass index (BMI) [Ratio] 45.37 kg/m2 Stacie Praisler-Wood BACK MAKER.LEAD SOFTWARE TESTER Work Phone: [facility] 05-16-2024 16:38-0500 Body temperature 98.2 [degF] Stacie Praisler-Wood BACK MAKER.LEAD SOFTWARE TESTER Work Phone: [facility] 05-16-2024 16:38-0500 Body weight 119.9 kg Stacie Praisler-Wood BACK MAKER.LEAD SOFTWARE TESTER Work Phone: [facility] 05-16-2024 16:38-0500 Diastolic blood pressure 84 mm[Hg] Stacie Praisler-Wood BACK MAKER.LEAD SOFTWARE TESTER Work Phone: [facility] 05-16-2024 16:38-0500 Heart rate 71 /min Stacie Praisler-Wood BACK MAKER.LEAD SOFTWARE TESTER Work Phone: [facility] 05-16-2024 16:38-0500 Respiratory rate 18 /min Stacie Praisler-Wood BACK MAKER.LEAD SOFTWARE TESTER Work Phone: [facility] 05-16-2024 16:38-0500 SaO2% (BldA) [Mass fraction] 98 % Stacie Praisler-Wood BACK MAKER.LEAD SOFTWARE TESTER Work Phone: [facility] 05-16-2024 16:38-0500 Systolic blood pressure 138 mm[Hg] Stacie Praisler-Wood BACK MAKER.LEAD SOFTWARE TESTER Work Phone: [facility] 02-11-2022 13:31-0400 Body height 162.[address] Shahzad Reynolds Work Phone: [facility] Work Phone: 02-11-2022 13:31-0400 Body mass index (BMI) [Ratio] 41.7 kg/m2 Dr. Shahzad Reynolds Work Phone: [facility] Work Phone: 02-11-2022 13:31-0400 Body temperature 97.5 [degF] Dr. Shahzad Reynolds Work Phone: [facility] Work Phone: 02-11-2022 13:31-0400 Body weight 110.[address] Shahzad Reynolds Work Phone: [facility] Work Phone: 02-11-2022 13:31-0400 Diastolic blood pressure 82 mm[Hg] Dr. Shahzad Reyonlds Work Phone: [facility] Work Phone: 02-11-2022 13:31-0400 Heart rate 92 /min Dr. Shahzad Reynolds Work Phone: [facility] Work Phone: 02-11-2022 13:31-0400 Respiratory rate 14 /min Dr. Shahzad Reynolds Work Phone: [facility] Work Phone: 02-11-2022 13:31-0400 SaO2% (BldA) [Mass fraction] 97 % Dr. Shahzad Reynolds Work Phone: [facility] Work Phone: 02-11-2022 13:31-0400 Systolic blood pressure 124 mm[Hg] Dr. Shahzad Reynolds Work Phone: [facility] Work Phone: 01-06-2022 15:43-0400 Body mass index (BMI) [Ratio] 41.8 kg/m2 Dr. Shahzad Reynolds Work Phone: [facility] Work Phone: 01-06-2022 15:43-0400 Body temperature 98 [degF] Dr. Shahzad Reynolds Work Phone: [facility] Work Phone: 01-06-2022 15:43-0400 Body weight 110.[address] Shahzad Reynolds Work Phone: [facility] Work Phone: 01-06-2022 15:43-0400 Diastolic blood pressure 74 mm[Hg] Dr. Shahzad Reynolds Work Phone: [facility] Work Phone: 01-06-2022 15:43-0400 Heart rate 87 /min Dr. Shahzad Reynolds Work Phone: [facility] Work Phone: 01-06-2022 15:43-0400 Respiratory rate 14 /min Dr. Shahzad Reynolds Work Phone: [facility] Work Phone: 01-06-2022 15:43-0400 SaO2% (BldA) [Mass fraction] 97 % Dr. Shahzad Reynolds Work Phone: [facility] Work Phone: 01-06-2022 15:43-0400 Systolic blood pressure 126 mm[Hg] Dr. Shahzad Reynolds Work Phone: [facility] Work Phone: 10-30-2021 13:17-0400 Body mass index (BMI) [Ratio] 41.1 kg/m2 Dr. Shahzad Reynolds Work Phone: [facility] Work Phone: 10-30-2021 13:17-0400 Body weight 108.[address] Shahzad Reynolds Work Phone: [facility] Work Phone: 09-10-2021 14:12-0400 Body temperature 97.7 [degF] Nicholas Bryant APRN.CNP Work Phone: [facility] 09-10-2021 14:12-0400 Body weight 117.84 kg Nicholas Bryant BACK MAKER.LEAD SOFTWARE TESTER Work Phone: [facility] 09-10-2021 14:12-0400 Diastolic blood pressure 82 mm[Hg] Nicholas Manny BACK MAKER.LEAD SOFTWARE TESTER Work Phone: [facility] 09-10-2021 14:12-0400 Heart rate 73 /min Nicholasisela Bryant BACK MAKER.LEAD SOFTWARE TESTER Work Phone: [facility] 09-10-2021 14:12-0400 Respiratory rate 20 /min Nicholas Manny BACK MAKER.LEAD SOFTWARE TESTER Work Phone: [facility] 09-10-2021 14:12-0400 SaO2% (BldA) [Mass fraction] 98 % Nicholas Manny BACK MAKER.LEAD SOFTWARE TESTER Work Phone: [facility] 09-10-2021 14:12-0400 Systolic blood pressure 140 mm[Hg] Nicholas Manny BACK MAKER.LEAD SOFTWARE TESTER Work Phone: [facility] Encounters Encounter Date Encounter Type Care Provider Facility Start: 03-21-2025 ambulatory Alexa Sherwood Facility:[facility] Start: 01-26-2025 ambulatory [facility] ty:[facility] Start: 01-19-2025 End: 01-19-2025 Emergency department patient visit [facility] Facility:[facility] Start: 2025 End: [address] [facility] [place] Start: 12-26-2024 End: 12-26-2024 Emergency department patient visit Gabriel HsuBertram Facility:[facility] Start: 12-25-2024 End: 12-25-2024 Follow-up encounter Alvarado Duran APRN.LEAD SOFTWARE TESTER Work Phone: [facility] Start: 12-25-2024 End: 12-25-2024 Telephone encounter Alvarado Duran APRN.LEAD SOFTWARE TESTER Work Phone: [facility] Start: 12-24-2024 End: 12-24-2024 Patient encounter procedure Alvarado Duran APRN.LEAD SOFTWARE TESTER Work Phone: [facility] Comment on above: Urinary urgency (Lacie kadie Dx) Start: 12-24-2024 End: 12-24-2024 ambulatory EFEWONGBE B OLEE Facility:[facility] Start: 12-23-2024 End: 12-23-2024 ambulatory Efewongbe Oleghe Facility:[facility] Start: 12-02-2024 End: 12-02-2024 Office outpatient visit 15 minutes Fernando Gómez APRN.CNP Work Phone: [facility] Comment on above: Viral illness (Prima ry Dx) Start: 12-02-2024 End: 12-02-2024 ambulatory EFEWONGBE B OLEE Facility:[facility] Start: 11-24-2024 ambulatory Alexa Sherwood Facility:[facility] Start: 11-23-2024 End: 11-23-2024 ambulatory Efewongbe Olee Facility:[facility] Start: 11-23-2024 End: 11-23-2024 ambulatory Efewleedsbe Olee Facility:[facility] Start: 11-07-2024 End: 11-07-2024 ambulatory Efewongbe Oleghe Facility:[facility] Start: 11-04-2024 End: 11-04-2024 ambulatory Efewongbe Olee Facility:[facility] Start: 11-04-2024 End: 11-04-2024 ambulatory Efewleedsbe Olee Facility:[facility] Start: 10-11-2024 ambulatory Efewongbe Oleghe Facili ty:[facility] Start: 10-11-2024 End: 10-11-2024 ambulatory Efewongbe Oleghe Facility:[facility] Start: 09-28-2024 End: 09-28-2024 ambulatory Efewongbe Oleghe Facility:[facility] Start: 08-22-2024 End: 08-22-2024 ambulatory Efewongbe Olee Facility:[facility] Start: 08-18-2024 End: 08-18-2024 ambulatory Efewongbe Oleghe Facility:[facility] Start: 07-22-2024 End: 07-22-2024 ambulatory Efewongbe Oleghe Facility:[facility] Start: 07-22-2024 End: 07-22-2024 ambulatory Shahzad Reynolds Facility:[facility] Start: 07-21-2024 End: 07-22-2024 Emergency department patient visit Shahzad Reynolds Facility:[facility] Start: 07-07-2024 ambulatory Shahzad Gonzalespoppy Facili ty:[facility] Start: 06-27-2024 End: 06-27-2024 [facility] [place] [place] Start: 06-17-2024 End: 06-17-2024 ambulatory ALEALAKE COMODEMETRIUS REYNOLDS Facility:[facility] Start: 06-17-2024 End: 06-17-2024 Patient encounter procedure Sudha Salgado APRN.LEAD SOFTWARE TESTER Work Phone: [facility] Comment on above: Pain, dental (Primar y Dx) Start: 06-16-2024 ambulatory OLEGLAKE COMODEMETRIUS REYNOLDS Clifford lity:[facility] Start: 05-16-2024 End: 05-16-2024 Subsequent hospital visit by physician [facility] Work Phone: Radiology Comment on above: Acute cough [R05.1] Start: 05-16-2024 End: 05-16-2024 ambulatory ALEALAKE COMODEMETRIUS REYNOLDS Facility:[facility] Start: 05-16-2024 End: 05-16-2024 Patient encounter procedure Stacie Jain APRN.LEAD SOFTWARE TESTER Work Phone: [facility] Comment on above: Sore throat (Primary Dx); Acute cough; Wheezing; Pain due to dental caries Start: 04-20-2024 End: 04-20-2024 ambulatory alealeedsdemetrius Reynolds Facility:[facility] Start: 04-06-2024 ambulatory Cliftondemetrius Paterobertpoppy Facili ty:[facility] Start: 04-05-2024 End: 04-05-2024 ambulatory Olegleedsdemetrius Reynolds Facility:[facility] Start: 03-30-2024 End: 03-30-2024 ambulatory Olegleedsdemetrius Gonzalespoppy [place] [place] Start: 02-11-2022 End: 02-11-[address] Shahzad Reynolds Work Phone: [facility] Work Phone: Start: 02-11-2022 End: 02-11-[address] Shahzad Reynolds Work Phone: [facility] Internal Medicine Start: 01-10-2022 End: 01-10-[address] Shahzad Reynolds Work Phone: [facility] Start: 01-06-2022 End: 01-06-[address] Shahzad Reynolds Work Phone: [facility] Start: 01-02-[address] Emily Reynolds Work Phone: [facility]-Physical Therapy Start: 11-19-2021 Non-patient / Non-visit Dr. Zca Reynolds Work Phone: [facility] Start: 10-30-2021 End: 10-30-[address] Shahzad Reynolds Work Phone: [facility] Orthopaedic [facility] Start: 09-10-2021 End: 09-10-2021 Patient encounter procedure Nicholas Bryant STEVE Work Phone: [facility] Comment on above: Toothache (Primary D x); Feared condition not demonstrated Start: 07-10-2020 Patient encounter procedure SELF SELF Facility:[facility] Start: 08-24-2018 Patient encounter procedure Siobhan Lopez Facility:[id number] Start: 06-08-2018 Patient encounter procedure Siobhan Lopez Facility:[id number] Start: 06-04-2018 Patient encounter procedure Carmine Pisano Facility:[facility] Start: 03-30-2018 Patient encounter procedure Siobhan Lopez Facility:[id number] Start: 12-29-2017 Patient encounter procedure Siobhan Lopez Facility:[id number] Start: 11-24-2017 Patient encounter procedure Siobhan Lopez Facility:[id number] Start: 11-03-2017 Patient encounter procedure Siobhan Lopez Facility:[id number] Start: 12-02-2011 Evaluation and management of inpatient Dr. Shahzad Reynolds Work Phone: [facility]- Start: 05-31-2008 End: 08-03-2015 Patient encounter status Stacie Jain BACK MAKER.LEAD SOFTWARE TESTER Work Phone: [facility] Procedures Date Procedure Procedure Detail Performing Clinician Start: 12-24-2024 Urnls dip stick/tablet rgnt auto w/o microscopy Alvarado Leni BACK MAKER.LEAD SOFTWARE TESTER Work Phone: Start: 05-16-2024 Radiologic exam chest 2 views Stacie Jain BACK MAKER.LEAD SOFTWARE TESTER Work Phone: Start: 05-16-2024 STREP A MOLECULAR (POC) Beverly Foster BACK MAKER.LEAD SOFTWARE TESTER Work Phone: Start: 10-12-2019 Adult depression screening assessment Nicholas Bryant BACK MAKER.LEAD SOFTWARE TESTER Work Phone: Start: 05-24-2019 Lipid 1996 panel - Serum or Plasma Stacie Jain BACK MAKER.LEAD SOFTWARE TESTER Work Phone: Start: 08-24-2018 Follow-up visit H/O: hysterectomy History of hysterectomy Dr. Shahzad Reynolds Work Phone: H/O: tubal ligation History of t ubal ligation Dr. Shahzad Reynolds Work Phone: History of appendectomy History of append ectomy Dr. Shahzad Reynolds Work Phone: Plan of Treatment Date Care Activity Detail Author Start: 01-16-2025 Influenza vaccination Influenza Vacc ine (#1) [facility] Start: 06-29-2024 End: 06-29-2024 Patient encounter procedure 06/29/2024 10:00 AM EST Office Visit OB/Gynecology [address] [place] [address] Magda Jiang APRN.CN [address] [place] [address] establish and annual OB/Gynecology Comment on above: establish and annual Start: 05-24-2024 Lipid panel Lipid Screening [facility] Start: 05-24-2024 LIPID SCREEN LIPID SCREEN [facility] Start: 01-17-2024 Covid-19 Vaccine ( season) Covid-19 Vaccine ( season) [facility] Start: 01-17-2024 Influenza vaccination Influenza Vacc ine (#1) [facility] Start: 03-14-2023 DIABETES SCREEN DIABETES SCREEN [facility] Start: 03-14-2023 Diabetes Screening Diabetes Screenin g [facility] Start: 02-11-2022 Patient referral [facility] Work Phone: Start: 01-16-2022 Influenza vaccination INFLUENZ A (Season Ended) [facility] Start: 01-03-2022 Shingrix Vaccine (1 of 2) Shingrix Vaccine (1 of 2) [facility] Start: 02-14-2021 ANNUAL PCP TEAM TESTER/LIFT TRUCKER ROSALINDA DISEASE VISIT ANNUAL PCP TEAM CHRONIC DISEASE VISIT [facility] Start: 10-11-2020 Adult depression screening assessment DEPRESSION SCREENING [facility] Start: 01-03-2017 COLOGUARD (FIT-DNA) COLOGUARD (FIT-D NA) [facility] Start: 01-03-2017 Colonoscopy COLONOSCOPY [facility] Start: 01-03-2017 COLORECTAL CANCER SCREENING COLORECTAL CANCER SCREENING [facility] Start: 01-03-[address] COLONOGRAPHY [facility] Start: 01-03-2017 FECAL OCCULT BLOOD FECAL OCCULT BLOO D [facility] Start: 01-03-2017 Screening for malign ant neoplasm of colon [facility] Start: 01-03-2017 SIGMOIDOSCOPY SIGMOIDOSCOPY [facility] Start: 11-30-2016 HPV TESTING HPV TESTING [facility] Start: 11-30-2016 PAP TESTING PAP TESTING [facility] Start: 11-30-2014 Screening for malign ant neoplasm of cervix Cervical Cancer Screening [facility] Start: 2012 Mammography MAMMOGRAM [facility] Start: 2012 Screening for malign ant neoplasm of breast Mammogram Screening [facility] Start: 01-03-1991 Hepatitis B Vaccine (1 of 3 - 19+ 3-dose series) Hepatitis B Vaccine (1 of 3 - 19+ 3-dose series) [facility] Start: 01-03-1991 ONE PNEUMOVAX PRIOR TO AGE 65 ONE PNEUMOVAX PRIOR TO AGE 65 [facility] Start: 01-03-1991 Pneumococcal Vaccine : 50+ (1 of 2 - PCV) Pneumococcal Vaccine: 50+ (1 of 2 - PCV) [facility] Start: 01-03-1991 Urine microalbumin profile [facility] Start: 01-03-1990 Anxiety Screening Anxiety Screening [facility] Start: 01-03-1990 BP CONTROLLED (<130/80) BP CONTROLLE D (<130/80) [facility] Start: 01-03-1990 [facility] identified [facility] U[facility] by Culture BACTERIAL CULTURE, URINE Microbiology Routine Urinary urgency Ordered: 12/24/2024 [facility] Work Phone: Comment on above: Ordered: 12/24/2024 BACTERIAL VAGINOSIS NAAT BACTERI AL VAGINOSIS NAAT Lab Routine Urinary urgency Ordered: 12/24/2024 [facility] Comment on above: Ordered: 12/24/2024 MARY/TRICHOMONAS NAAT MARY /TRICHOMONAS NAAT Lab Routine Urinary urgency Ordered: 12/24/2024 [facility] Comment on above: Ordered: 12/24/2024 Patient referral [facility] Work Phone: Immunizations Immunization Date Immunization Notes Care Provider Sigrid cary 04-17-[address] Shahzad Reynolds Work Phone: [facility] Work Phone: 04-17-2020 influenza virus vaccine, unspecified formulation Stacie Jain APRN.LEAD SOFTWARE TESTER Work Phone: [facility] 03-14-2020 influenza, injectabl e, quadrivalent, contains preservative Nicholas Bryant BACK MAKER.LEAD SOFTWARE TESTER Work Phone: [facility] 04-28-2019 influenza, injectabl e, quadrivalent, contains preservative Nicholas Bryant BACK MAKER.LEAD SOFTWARE TESTER Work Phone: [facility] 05-28-[address] Shahzad Reynolds Work Phone: [facility] Work Phone: Payers Date Payer Category Payer Self-pay [id number] 2022 Medicaid [id number] 2016 Medicaid [id number] 2015 Medicaid [employer] [facility] [id number] 2015-Present [phone] [address] [place] [address] Medicaid [id number] 2014 Unknown [id number] 1972 Unknown [id number] 2.16840.1.494928.3.579.2.356 1972 Unknown [id number] 2.16840.1.698324.3.579.2.356 1972 Unknown [id number] 2.16.840.1.095846.3.579.2.356 1972 Unknown [id number] 2.16.840.1.794271.3.579.2.356 1972 Unknown [id number] 2.16840.1.673478.3.579.2. 1972 Unknown [id number] 2.16.840.1.958642.3.579.2.356 1972 Unknown [id number] 2.16.840.1.596751.3.579.2. 1972 Unknown [id number] 2.16.840.1.981398.3.579.2.356 1972 Unknown [id number] 2.16840.1.343671.3.579.2.356 1972 Unknown [id number] 2.16.840.1.503359.3.579.2.594 Unknown [id number] 2.16.840.1.028533.3.579.2.462 Unknown [id number] 2.16.840.1.986942.3.579.2.462 Unknown [id number] 2.16.840.1.503512.3.579.2.462 Unknown [id number] 2.16.840.1.784061.3.579.2.462 Unknown [id number] 2.16.840.1.222423.3.579.2.462 Unknown [id number] 2.16840.1.364019.3.579.2.462 Unknown [id number] 2.16.840.1.909465.3.579.2.462 Unknown [id number] 2.16840.1.429661.3.579.2.462 Unknown [id number] 2.840.1.575322.3.579.2.462 Unknown [id number] 2.840.1.413595.3.579.2.462 Unknown [id number] 2.16840.1.606059.3.579.2.462 Unknown [id number] 2.16.840.1.479803.3.579.2.462 Unknown [id number] 2.16840.1.016218.3.579.2.462 Unknown [id number] 2.16.840.1.262819.3.579.2.462 Unknown [id number] 2.16.840.1.294219.3.579.2.462 Unknown [id number] 2.16.840.1.940521.3.579.2.462 Unknown [id number] 2.16.840.1.554104.3.579.2.462 Unknown [id number] 2.16.840.1.221347.3.579.2.462 Unknown [id number] 2.16.840.1.867841.3.579.2.462 Unknown [id number] 2.16.840.1.092144.3.579.2.462 Unknown [id number] 2.16.840.1.382141.3.579.2.462 Unknown [id number] 2.16.840.1.642479.3.579.2.462 Unknown [id number] 2.16.840.1.947500.3.579.2.462 Unknown [id number] 2.16.840.1.739646.3.579.2.462 Unknown [id number] 2.16.840.1.879560.3.579.2.462 Unknown [id number] 2.16.840.1.593679.3.579.2.462 Unknown [id number] 2.840.1.638416.3.579.2.462 Social History Date Type Detail Facility Start: 08-10-2012 End: 06-17-2024 Tobacco smoking status COIS Smokes tobacco daily [facility] History of tobacco use Cigarette Smoker [facility] Start: 09-10-2021 End: 12-24-2024 Alcohol intake Ex-drinker (finding) [facility] Start: 02-01-2019 History SDOH Alcohol Comment occasionally [facility] Start: 1970 Sex Assigned At Not on file [facility] Start: 08-31-2021 End: 09-10-2021 Exposure to SARS-CoV-2 (event) Not sure [facility] Work Phone: Start: 02-11-2022 Tobacco smoking stat us COIS Unknown if ever smoked [facility] Work Phone: Start: 08-16-2021 [facility] Start: 08-16-2021 None [place] [facility] Work Phone: Start: 06-03-2020 Spouse/ Signif icant Other [facility] Work Phone: Start: 08-16-2021 Cigarettes Amaris [facility] Work Phone: Start: 1970 Sex Assigned At Female W [facility] Work Phone: Start: 08-10-2012 End: 01-14-2024 Cigarettes smoked current (pack per day) - Reported 0.5 [facility] Start: 08-10-2012 End: 06-17-2024 Tobacco use and exposure Smokeless tobacco non-user [facility] Start: 01-14-2024 End: 05-16-2024 Tobacco use panel [facility] Start: 04-18-2012 Adult Depression Screening Assessment 3 [facility] Functional Status Date Assessment Result Facility 06-29-2014 Are you deaf, or do you have serious difficulty hearing No 06/29/2014 3:37 PM Shanta Rose Ma [facility] 06-29-2014 Are you blind, or do you have serious difficulty seeing, even when wearing glasses No 06/29/2014 3:37 PM Shanta Rose Ma [facility] 06-29-2014 Do you have serious difficulty walking or climbing stairs No 06/29/2014 3:37 PM Shanta Rose Ma [facility] 06-29-2014 Do you have difficul ty dressing or bathing No 06/29/2014 3:37 PM Shanta Rose Ma [facility] 06-29-2014 Because of a physica l, mental, or emotional condition, do you have difficulty doing errands alone such as visiting a physician's office or shopping No 06/29/2014 3:37 PM Shanta Rose Ma [facility] Mental Status Date Assessment Result Facility 06-29-2014 Because of a physica l, mental, or emotional condition, do you have serious difficulty concentrating, remembering, or making decisions No 06/29/2014 3:37 PM Shanta Rose Ma [facility] Clinical Notes 05-31-2008 to 12-25-2024 Telephone Encounter - Alvarado Duran APRN.LEAD SOFTWARE TESTER - 12/25/2024 8:16 AM EDTTelephone Encounter - Alvarado Duran APRN.LEAD SOFTWARE TESTER - 12/25/2024 8:16 AM Alvarado Taylor APRN.CNP - 12/24/2024 11:49 AM EDT Note Date & Type Note Facility 12-25-2024 Telephone encounter Note Vaginitis swab positive for yeast. Diflucan sent to [facility]. [facility] 12-25-2024 Miscellaneous Notes Vaginitis swab positive for yeast. Diflucan sent to [employer]. documented in this encounter [facility] 12-24-2024 Note HNO ID: [id number] Author: ALVARADO DURAN APRN.CNP Service: ? Author Type: Nurse Practitioner Type: Progress Notes Filed: 12/24/2024 12:18 Note Text: [facility] [place] Subjective Baljit German is a 54 year old female. Patient presents with: UTI pinworms UTI Associated symptoms include urgency. Pertinent negatives include no frequency and no hematuria. Parasitic Infection Concerns: - Reports seeing itty bitty white things coming out of her skin last night. - Describes appearance of eggs under her skin, resembling writing. - Denies seeing a service delivery management consultant. Urinary Urgency: - Reports urinary urgency and [...] LIGATION 1993 SALPINGO-OOPHORECTOMY COMPL/PRTL UNI/BI SPX 2011 Jdclejep-qlohpfmkbbdx-wqch separate from hysterectomy TOTAL ABDOMINAL HYSTERECT W/WO [...] (Patient not taking: Reported on 12/24/2024) Vitamin R28-Wmeli Acid 0.5-1 mg tab Take by mouth. [...] No antibiotics leodan (more content not included)... [facility] 12-24-2024 History of Present illness Narrative Images from the original note were not included. [facility] Gabriella Baljit German is a 54 year old female. Patient presents with: UTI pinworms UTI Associated symptoms include urgency. Pertinent negatives include no frequency and no hematuria. Parasitic Infection Concerns: - Reports seeing itty bitty white things coming out of her skin last night. - Describes appearance of eggs under her skin, resembling writing. - Denies seeing a service delivery management consultant. Urinary Urgency: - Reports urinary urgency and [...] LIGATION 1993 SALPINGO-OOPHORECTOMY COMPL/PRTL UNI/BI SPX 2011 Bmvgdqgh-mfdycyrriyxv-kwib separate from hysterectomy TOTAL ABDOMINAL HYSTERECT W/WO [...] (Patient not taking: Reported on 12/24/2024) Vitamin U01-Eqcwd Acid 0.5-1 mg tab Take by mouth. [...] hair folicules seen. and Recording using ambient [employer] software for draft documentation of the visit was discussed with the patient/authorized pharmaceutical specialty representative; all questions welcomed and answered. Patient/authorized pharmaceutical specialty representative agreed to proceed Disposition The patient [...] quadrant abdominal pain 06/10/2020: Withdrawal from methamphetamine (HCC) Comment: & other substances. Rehab at [facility] [...] states rarely uses documented in this encounter [facility] 12-02-2024 Note HNO ID: [id number] Author: FERNANDO GÓMEZ APRN.RA Service: ? Author Type: Nurse Practitioner Type: [...] (HCC) 06/10/2020 AND other substances. Rehab at [facility] PAST SURGICAL HISTORY Procedure Laterality Date APPENDECTOMY [...] LIGATION 1993 SALPINGO-OOPHORECTOMY COMPL/PRTL UNI/BI SPX 2011 Anazddqk-jraewglbjbhy-zsqp separate from hysterectomy TOTAL ABDOMINAL HYSTERECT W/WO [...] capsule by mouth every 12 hours. Vitamin K03-Smpnz Acid 0.5-1 mg tab Take by mouth. [...] pain. Eyes: N (more content not included)... [facility] 12-02-2024 History of Present illness Narrative [...] quadrant abdominal pain 06/29/2014 Withdrawal from methamphetamine ([facility]) 06/10/2020 & other substances. Rehab at [facility] [...] LIGATION 1993 SALPINGO-OOPHORECTOMY COMPL/PRTL UNI/BI SPX 2012 Dfeabgke-bnkzeziytuyx-mban separate from hysterectomy TOTAL ABDOMINAL HYSTERECT W/WO [...] capsule by mouth every 12 hours. Vitamin I84-Nbklo Acid 0.5-1 mg tab Take by mouth. [...] understand agrees plan of care Fernando Gómez APRN.LEAD SOFTWARE TESTER documented in this encounter [facility] 06-17-2024 Note HNO ID: [id number] Author: SUDHA SALGADO APRN.RA Service: ? Author Type: Nurse Practitioner Type: [...] history is provided by the patient. No bilingual speech language pathologist was used. Dental Problem Review of Systems [...] LIGATION 1993 SALPINGO-OOPHORECTOMY COMPL/PRTL UNI/BI SPX 2011 Piwqreud-wsmvqsugyols-enha separate from hysterectomy TOTAL ABDOMINAL HYSTERECT W/WO [...] (Patient not taking: Reported on 05/16/2024) Vitamin K43-Fmxju Acid 0.5-1 mg tab Take by mouth. [...] Never Used Substance (more content not included)... [facility] 06-17-2024 History of Present illness Narrative [...] history is provided by the patient. No bilingual speech language pathologist was used. Dental Problem Review of Systems [...] (attention deficit hyperactivity disorder) Anxiety Cocaine abuse ([facility]) 10/2013 Current smoker GERD (gastroesophageal reflux disease) [...] quadrant abdominal pain 06/29/2014 Withdrawal from methamphetamine ([facility]) 06/10/2020 & other substances. Rehab at 180 [...] LIGATION 1994 SALPINGO-OOPHORECTOMY COMPL/PRTL UNI/BI SPX 2012 Xcuffbkg-ansovweugrcb-bzwq separate from hysterectomy TOTAL ABDOMINAL HYSTERECT W/WO [...] (Patient not taking: Reported on 05/16/2024) Vitamin D13-Lnonk Acid 0.5-1 mg tab Take by mouth. [...] Sudha Salgado APRN.RA documented in this encounter [facility] 05-16-2024 Instructions Stacie Jain APRN.LEAD SOFTWARE TESTER - 05/16/2024 5:22 PM EST ASSESSMENT/PLAN: 1. Sore throat - ICD9: 462, ICD10: J02.9 (primary diagnosis) - suspect viral - Group A strep molecular testing negative - Discussed supportive care treatment with fluids, rest and analgesia. - STREP A MOLECULAR (POC) 2. Acute cough - ICD9: 786.2, ICD10: R05.1 - XR CHEST 2V FRONTAL/LAT IMPRESSION: No acute radiographic abnormality. Superintendent Car Construction: MARICEL Transcribe Date/Time: May 16 2024 5:12P [...] Discussed expected course of illness Stacie Jain APRN.LEAD SOFTWARE TESTER ACUTE BRONCHITIS: You have acute bronchitis. This [...] of proper treatment. documented in this encounter [facility] 05-16-2024 History of Present illness Narrative Radiology [...] PATIENT PRESENTS WITH AN IMPLANTABLE OR ATTACHED PREVENTIVE MEDICINE OFFICER: No RADIOLOGY DEPARTMENT: General X-ray: Exam(s) Completed: Chest X-Ray PERIPHERAL IV DATA: Not applicable SIGNED BY: RT Toni(Chaim) May 16, 2024 5:07 PM documented in this encounter [facility] 05-16-2024 Note HNO ID: [id number] Author: CHEKO BURRELL RT (R) Service: Radiology Author Type: Technologist Type: Progress [...] PATIENT PRESENTS WITH AN IMPLANTABLE OR ATTACHED PREVENTIVE MEDICINE OFFICER: No RADIOLOGY DEPARTMENT: General X-ray: Exam(s) Completed: Chest X-Ray PERIPHERAL IV DATA: Not applicable SIGNED BY: RT Toni(R) May 16, 2024 5:07 PM [facility] 05-16-2024 Note HNO ID: [id number] Author: STACIE JAIN APRN.LEAD SOFTWARE TESTER Service: ? Author Type: Nurse Practitioner Type: [...] (consider TRH testing) T3 86 (94-170) in - T4 4.2 (4.9-11) in 05-26 TU and [...] LIGATION 1993 SALPINGO-OOPHORECTOMY COMPL/PRTL UNI/BI SPX 2011 Xioidclo-oumrltczmrya-bqdg separate from hysterectomy TOTAL ABDOMINAL HYSTERECT W/WO [...] (Patient not taking: Reported on 05/16/2024) Vitamin E83-Leldk Acid 0.5-1 mg tab Take by mouth. [...] midline. No oropharyn (more content not included)... [facility] 05-16-2024 History of Present illness Narrative [...] quadrant abdominal pain 06/29/2014 Withdrawal from methamphetamine ([facility]) 06/10/2020 & other substances. Rehab at 180 [...] LIGATION 1993 SALPINGO-OOPHORECTOMY COMPL/PRTL UNI/BI SPX 2012 Whvdebiu-oykscfoyuxng-qmgn separate from hysterectomy TOTAL ABDOMINAL HYSTERECT W/WO [...] (Patient not taking: Reported on 05/16/2024) Vitamin H24-Fewtg Acid 0.5-1 mg tab Take by mouth. [...] 2V FRONTAL/LAT IMPRESSION: No acute radiographic abnormality. Superintendent Car Construction: MARICEL Transcribe Date/Time: May 16 2024 5:12P [...] Discussed expected course of illness Stacie Jain APRN.LEAD SOFTWARE TESTER documented in this encounter [facility] 09-10-2021 History of Present illness Narrative Images [...] quadrant abdominal pain 06/29/2014 Withdrawal from methamphetamine ([facility]) 06/10/2020 & other substances. Rehab at [facility] [...] LIGATION 1994 SALPINGO-OOPHORECTOMY COMPL/PRTL UNI/BI SPX 2011 Jfsklpac-ypnethqlrtxd-ciwd separate from hysterectomy TOTAL ABDOMINAL HYSTERECT W/WO RMVL TUBE OVARY 2011 JANNA for fibroids ALLERGIES Codeine and Lisinopril MEDICATIONS POTASSIUM-99 ORAL Take by mouth. Vitamin D05-Kwjzt Acid 0.5-1 mg tab Take by mouth. [...] MG TABLET Agrees to plan Nicholas Bryant APRN.RA documented in this encounter [facility] 05-31-2008 History of Past i llness Narrative Problem Noted Date Resolved Date Routine general medical exam ination at a health care facility 05/31/2008 08/03/2015 Overview: Moved from [place] in 04-22: she was there for 14 years Worked at the [employer] in [place] Hct 39.7% in 05-26 LDL 116, HDL 68, TG 84 in 05-26 Iron 26 (30-140), Ferritin 13 (9-150) in 05-26 OBESITY NOS 05/31/2008 08/03/2015 Unspecified sleep apnea 05/31/2008 08/03/19 16 Overview: Need to consider testing after review of TSH in 05-26 documented as of this encounter (statuses as of 09/10/2021) [facility] Toothache- Primary Unspecified disorder of the teeth and supporting structures Feared condition not demonstrated Person with feared complaint in whom no diagnosis was made [facility] Diagnosis Onset Date Resolution Status Trigger thumb of both hands acute COVID-19 acute COVID-19 acute Vitamin D deficiency acute ADHD (attention deficit hyperactivity disorder) chronic Hypothyroidism (acquired) ch ronic ANNETTE (obstructive sleep apnea) chronic Low libido noneactive [facility] Work Phone: Evaluation note* Diagnosis Tobacco abuse- Primary Tobacco use disorder Hypothyroidism, unspecified type Gastroesophageal reflux disease, esophagitis presence not specified Fibromyalgia Mylagia and myositis, unspecified Sleep apnea, unspecified type Insomnia, unspecified type Tendinitis Enthesopathy of unspecified site Sore throat- Primary Acute pharyngitis Acute cough Wheezing Pain due to dental caries Unspecified dental caries Acute cough [facility] Diagnosis Tobacco abuse- Primary Tobacco use disorder Hypothyroidism, unspecified type Gastroesophageal reflux disease, esophagitis presence not specified Fibromyalgia Mylagia and myositis, unspecified Sleep apnea, unspecified type Insomnia, unspecified type Tendinitis Enthesopathy of unspecified site Acute cough [facility] Diagnosis Tobacco abuse- Primary Tobacco use disorder Hypothyroidism, unspecified type Gastroesophageal reflux disease, esophagitis presence not specified Fibromyalgia Mylagia and myositis, unspecified Sleep apnea, unspecified type Insomnia, unspecified type Tendinitis Enthesopathy of unspecified site Pain, dental- Primary Unspecified disorder of the teeth and supporting structures [facility] Diagnosis Tobacco abuse- Primary Tobacco use disorder Hypothyroidism, unspecified type Gastroesophageal reflux disease, esophagitis presence not specified Fibromyalgia Mylagia and myositis, unspecified Sleep apnea, unspecified type Insomnia, unspecified type Tendinitis Enthesopathy of unspecified site Viral illness- Primary Unspecified viral infection, in conditions classified elsewhere and of unspecified site [facility] Diagnosis Tobacco abuse- Primary Tobacco use disorder Hypothyroidism, unspecified type Gastroesophageal reflux disease, esophagitis presence not specified Fibromyalgia Mylagia and myositis, unspecified Sleep apnea, unspecified type Insomnia, unspecified type Tendinitis Enthesopathy of unspecified site Urinary urgency- Primary Urgency of urination [facility] Diagnosis Tobacco abuse- Primary Tobacco use disorder Hypothyroidism, unspecified type Gastroesophageal reflux disease, esophagitis presence not specified Fibromyalgia Mylagia and myositis, unspecified Sleep apnea, unspecified type Insomnia, unspecified type Tendinitis Enthesopathy of unspecified site Vaginal yeast infection- Primary Candidiasis of vulva and vagina documented in this encounter [facility] Summary Purpose Family History No Family History Records Found Relationship Condition Age at Onset Recorded Date/T liana sister Coronary artery disease Unknown Myocardial infarction Unknown Sudden cardiac Unknown father Malignant neoplasm of pancreas Unknown Advance Directives No Advanced Directives Records Found Advance Directive Response Recorded Date/ Time Living Will No November 12, 2021 2:07pm Power of Marketing Planning Manager No November 12 2:07pm Chief Complaint and [...] section and content) DATE CREATED AUTHOR 09/03/2018 [facility] DATE CREATED AUTHOR AUTHOR'S ORGANIZ ATION 01/13/2019 [facility] DATE CREATED AUTHOR AUTHOR'S ORGANIZ ATION 07/11/2020 [facility] DATE CREATED AUTHOR AUTHOR'S ORGANIZ ATION 12/31/2024 [facility] DATE CREATED AUTHOR AUTHOR'S ORGANIZ ATION 03/23/2025 [facility] Source Comments (unrecognize d section and content) In the event this informatio n is protected by the Federal Confidentiality of Alcohol and Drug Abuse Patient Records regulations: The Federal rules restrict any use of the information to criminally investigate or prosecute any alcohol or drug abuse patient.[facility] the event this information is protected by the Federal Confidentiality of Alcohol and Drug Abuse Patient Records regulations: The Federal rules restrict any use of the information to criminally investigate or prosecute any alcohol or drug abuse patient.[facility] the event this information is protected by the Federal Confidentiality of Alcohol and Drug Abuse Patient Records regulations: The Federal rules restrict any use of the information to criminally investigate or prosecute any alcohol or drug abuse patient.[facility] the event this information is protected by the Federal Confidentiality of Alcohol and Drug Abuse Patient Records regulations: The Federal rules restrict any use of the information to criminally investigate or prosecute any alcohol or drug abuse patient.[facility] the event this information is protected by the Federal Confidentiality of Alcohol and Drug Abuse Patient Records regulations: The Federal rules restrict any use of the information to criminally investigate or prosecute any alcohol or drug abuse patient.[facility] the event this information is protected by the Federal Confidentiality of Alcohol and Drug Abuse Patient Records regulations: The Federal rules restrict any use of the information to criminally investigate or prosecute any alcohol or drug abuse patient.[facility] the event this information is protected by the Federal Confidentiality of Alcohol and Drug Abuse Patient Records regulations: The Federal rules restrict any use of the information to criminally investigate or prosecute any alcohol or drug abuse patient.[facility] the event this information is protected by the Federal Confidentiality of Alcohol and Drug Abuse Patient Records regulations: The Federal rules restrict any use of the information to criminally investigate or prosecute any alcohol or drug abuse patient.[facility] Reason for Visit (unrecogniz ed section and [...] Care Teams (unrecognized sec tion and content) Home Decorator Relationship Specialty Start Date End Date Shahzad Reynolds MD [address] [address] PCP - General Internal Medicine 07/10/21 Home Decorator Relationship Specialty Start Date End Date Shahzad Reynolds MD [address] [place] [address] PCP - General Internal Medicine 07/10/21 Home Decorator Relationship Specialty Start Date End Date Shahzad Reynolds MD [address] [place] [address] PCP - General Internal Medicine 07/10/21 Home Decorator Relationship Specialty Start Date End Date Shahzad Reynolds MD [address] [place] [address] PCP - General Internal Medicine 07/10/21 Home Decorator Relationship Specialty Start Date End Date Shahzad Reynolds MD [address] [place] [address] PCP - General Internal Medicine 07/10/21 Home Decorator Relationship Specialty Start Date End Date Shahzad Reynolds MD [address] [place] [id number] PCP - General Internal Medicine 07/10/21 Home Decorator Relationship Specialty Start Date End Date Shahzad Reynolds MD [address] [place], [place] [id number] PCP - General Internal Medicine 07/10/21 Goals [...] BE BASED ON THE PRIMARY CLINICAL RECORDS. [facility]. provides no warranty or guarantee of the accuracy or completeness of information in this document.
== END | disposition home or self-care (01) ==
LOC: MTLAB 16:41
PROVIDERS: PCP Internal Medicine; Referring Provider Nurse Practitioner Family; Visit Provider Nurse Practitioner Family
DX: E03.9 Hypothyroidism, unspecified (principal)
CPT/HCPCS: 36415; 84443